=== PATIENT | female | born 1970 ===

== ENCOUNTER → 2020-07-28 12:42 | Outpatient (BNVA) | payer MEDICARE, OTHER, SELFPAY | PROVIDERS: PCP Family Medicine; Referring Provider Family Medicine; Visit Provider Nurse Practitioner Gerontology | DX: E11.65 Type 2 diabetes mellitus with hyperglycemia (principal); E11.42 Type 2 diabetes mellitus with diabetic polyneuropathy; Z79.4 Long term (current) use of insulin; E78.5 Hyperlipidemia, unspecified | CPT/HCPCS: 82947; 99212 ==

== ENCOUNTER 2020-08-10 15:30 | Outpatient (REF) | payer MEDICARE, OTHER, SELFPAY | END 2020-08-10 15:31 | disposition home or self-care (01) | LOC: HO.LAB 15:30 | PROVIDERS: Visit Provider Internal Medicine | DX: Z20.828 Contact with and (suspected) exposure to other viral communicable diseases (principal) | CPT/HCPCS: C9803; U0003 ==

== ENCOUNTER → 2020-08-26 07:55 | Outpatient (BNVA) | payer MEDICARE, OTHER, SELFPAY | PROVIDERS: PCP Family Medicine; Referring Provider Family Medicine; Visit Provider Nurse Practitioner Gerontology | DX: E11.65 Type 2 diabetes mellitus with hyperglycemia (principal); E11.42 Type 2 diabetes mellitus with diabetic polyneuropathy; Z79.4 Long term (current) use of insulin; E78.5 Hyperlipidemia, unspecified | CPT/HCPCS: Q3014 ==

== ENCOUNTER 2020-08-31 11:52 | Outpatient (REF) | payer MEDICARE, OTHER, SELFPAY ==
[2020-08-31 13:03] LABS: Alanine Aminotransferase 52 U/L (0-31); Albumin Level 4.3 g/dL (3.5-5.0); Alkaline Phosphatase 107 U/L (39-117); Anion Gap 12 (12-20); Aspartate Amino Transferase 30 U/L (5-31); Bilirubin Total 0.4 mg/dL (0.0-1.0); Blood Urea Nitrogen 15 mg/dL (9-16); Calcium 9.4 mg/dL (8.4-10.2); Carbon Dioxide 28 mmol/L (22-29); Chloride 105 mmol/L (96-108); Cholesterol 224 mg/dL; Estimated Glomerular Filt Rate > 60; Glucose Fasting 57 mg/dL (60-99); HDL Cholesterol 54 mg/dL; LDL Cholesterol Calculated 142 mg/dl; Potassium 4.3 mmol/l (3.3-5.1); Sodium 141 mmol/L (135-145); Total Protein 8.1 g/dL (6.5-8.0); Triglycerides 142 mg/dL
[2020-08-31 13:43] LABS: Creatinine Urine 114.35 mg/dL; Microalbum/Creatinine Ratio Ur 6.9 ug/mg cr
== END 2020-08-31 11:53 | disposition home or self-care (01) ==
LOC: HO.LAB 11:52
PROVIDERS: PCP Pediatrics; Visit Provider Nurse Practitioner Gerontology
DX: E11.65 Type 2 diabetes mellitus with hyperglycemia (principal); Z79.4 Long term (current) use of insulin
CPT/HCPCS: 80053; 80061; 82043

== ENCOUNTER → 2020-09-28 12:52 | Outpatient (BNVA) | payer MEDICARE, OTHER, SELFPAY | PROVIDERS: PCP Pediatrics; Visit Provider Nurse Practitioner Gerontology | DX: E11.65 Type 2 diabetes mellitus with hyperglycemia (principal); E11.42 Type 2 diabetes mellitus with diabetic polyneuropathy; R79.89 Other specified abnormal findings of blood chemistry; E78.5 Hyperlipidemia, unspecified; Z79.4 Long term (current) use of insulin | CPT/HCPCS: 82947; 99212 ==

== ENCOUNTER → 2020-11-09 14:44 | Outpatient (BNVA) | payer MEDICARE, SELFPAY | PROVIDERS: PCP Pediatrics; Visit Provider Nurse Practitioner | DX: Z13.79 Encounter for other screening for genetic and chromosomal anomalies (principal) | CPT/HCPCS: Q3014 ==

== ENCOUNTER → 2020-12-07 07:57 | Outpatient (BNVA) | payer MEDICARE, SELFPAY | PROVIDERS: PCP Pediatrics; Visit Provider Nurse Practitioner Gerontology | DX: E11.65 Type 2 diabetes mellitus with hyperglycemia (principal); E11.42 Type 2 diabetes mellitus with diabetic polyneuropathy; Z79.4 Long term (current) use of insulin; E78.5 Hyperlipidemia, unspecified | CPT/HCPCS: 82947; 99212 ==

== ENCOUNTER → 2021-01-07 12:43 | Outpatient (BNVA) | payer MEDICARE, SELFPAY | PROVIDERS: PCP Pediatrics; Visit Provider Nurse Practitioner Gerontology | DX: E11.65 Type 2 diabetes mellitus with hyperglycemia (principal); E11.42 Type 2 diabetes mellitus with diabetic polyneuropathy; E78.5 Hyperlipidemia, unspecified; M79.7 Fibromyalgia; Z88.6 Allergy status to analgesic agent; Z88.5 Allergy status to narcotic agent; Z88.8 Allergy status to other drugs, medicaments and biological substances; Z79.4 Long term (current) use of insulin; Z79.899 Other long term (current) drug therapy | CPT/HCPCS: 82947; 99212 ==

== ENCOUNTER 2021-01-20 08:00 | Outpatient (REF) | payer MEDICARE, SELFPAY ==
--- NOTE | ~2021-01-20 | US_ITS ---
EXAMINATION: US COMPLETE ABDOMEN WITH LIVER ELASTOGRAPHY CLINICAL INFORMATION: Increased LFTs. COMPARISON: None. TECHNIQUE: Real-time imaging of the abdominal viscera. Noninvasive ultrasound liver fibrosis assessment is performed using Nabil ElastPQ point quantification shear wave elastography (pSWE) with a C5-2 MHz transducer. Multiple elastography samples are obtained. FINDINGS: PANCREAS: Normal. The visualized pancreatic head and body are normal in appearance. The remainder of the pancreas is obscured from visualization by the overlying bowel gas. ABDOMINAL AORTA: The proximal, middle, and distal aortic segments are normal in caliber. INFERIOR VENA CAVA: Visualized portions are normal. LIVER: Normal. The liver demonstrates normal size, contour and echogenicity. No focal lesion or intrahepatic biliary duct dilatation. The right lobe measures 15.0 cm in length. The left lobe measures 10.3 cm in length. Portal flow is hepatopedal. Shear wave liver elastography median stiffness is 1.44 m/s (reference: normal median stiffness is 1.3 m/s or less). IQR/median stiffness to assess sampling precision is 0.12 (reference: good quality data set is IQR/median stiffness of 0.15 or less). GALLBLADDER: Normal. The gallbladder is physiologically distended without evidence of stones, sludge, polyps, wall thickening or pericholecystic fluid. COMMON BILE DUCT: Normal in caliber measuring 0.42 cm in diameter. RIGHT KIDNEY: There is a small echogenic stone midpole measuring 0.3 x 0.3 x 0.3 cm. No hydronephrosis. No renal calculi or focal parenchymal lesions. The kidney measures 11.7 cm in maximum dimension. LEFT KIDNEY: No hydronephrosis. No renal calculi or focal parenchymal lesions. The kidney measures 12.2 cm in maximum dimension. SPLEEN: Normal. The spleen measures 9.9 cm in maximum dimension. FREE FLUID: None. US/US abdomen comp w elastography IMPRESSION: 1. Small echogenic nonobstructive stone midpole right kidney. Rest of the abdominal ultrasound is unremarkable. 2. Liver elastography: Median stiffness 1.44. This is suggestive of cACLD ruled out. REFERENCE: Society of Radiologists in Ultrasound Liver Stiffness Thresholds (2020): LIVER STIFFNESS THRESHOLDS: *Liver Stiffness equal or less than 1.3 m/s: High probability of being normal. *Liver Stiffness less than 1.7 m/s: In the absence of other known clinical signs, rules out compensated advanced chronic liver disease. *Liver Stiffness 1.7-2.1 m/s: Suggestive of compensated advanced chronic liver disease but need further test for confirmation. *Liver Stiffness over 2.1 m/s: Rules in compensated advanced chronic liver disease. *Liver Stiffness over 2.4 m/s: Suggestive of clinically significant portal hypertension. QUALITY OF DATA SET: *IQR/Median value equal or less than 0.15 implies a quality data set. *IQR/Median value over 0.15 implies a poor quality data set. SIGNIFICANT CHANGE FROM PRIOR EXAM: Significant change if liver stiffness measurement is 10% or greater from prior exam. OTHER CONSIDERATIONS: The stage of liver fibrosis may be overestimated in the setting of acute hepatitis, liver inflammation, elevated liver function tests, hepatic vascular congestion, obstructive cholestasis, non-fasting state, and infiltrative diseases such as amyloidosis and lymphoma. In some patients with NAFLD, the liver stiffness thresholds for compensated advanced chronic liver disease may be lower. In causes other than viral hepatitis and NAFLD, liver stiffness thresholds are not well established.
== END 2021-01-20 08:01 | disposition home or self-care (01) ==
LOC: HO.US 08:00
PROVIDERS: Visit Provider Nurse Practitioner
DX: R79.89 Other specified abnormal findings of blood chemistry (principal); R19.7 Diarrhea, unspecified
CPT/HCPCS: 76705; 76981

== ENCOUNTER → 2021-03-03 13:38 | Outpatient (BNVA) | payer MEDICARE, SELFPAY | PROVIDERS: PCP Pediatrics; Visit Provider Nurse Practitioner Gerontology | DX: E11.65 Type 2 diabetes mellitus with hyperglycemia (principal); E11.42 Type 2 diabetes mellitus with diabetic polyneuropathy; E78.5 Hyperlipidemia, unspecified; Z79.4 Long term (current) use of insulin | CPT/HCPCS: 82947; 99212 ==

== ENCOUNTER 2021-03-04 14:21 | Outpatient (REF) | payer MEDICARE, SELFPAY ==
[2021-03-04 15:31] LABS: MANUAL DIFF FLAG NO
[2021-03-04 15:32] LABS: Basophils Absolute Auto 0.1 X10*3/uL (0.0-0.2); Basophils Percent Auto 1.1 % (0-2); Eosinophils Absolute Auto 0.2 X10*3/uL (0.0-0.4); Hematocrit 41.2 % (37-47); Hemoglobin 13.9 g/dl (12.0-16.0); Imm Gran Abs Auto 0.01 X10*3/uL (0.00-0.03); Imm Gran Pct Auto 0.2 % (0.0-0.4); Lymphocytes Absolute Auto 2.2 X10*3/uL (1.2-4.9); Lymphocytes Percent Auto 42.1 % (20-40); Mean Corpuscular HGB Conc 33.7 g/dl (31.0-35.0); Mean Corpuscular Hemoglobin 28.8 pg (27.0-33.0); Mean Corpuscular Volume 85.3 fL (80-98); Mean Platelet Volume 10.3 fL (9.4-12.3); Monocytes Absolute Auto 0.5 X10*3/uL (0.1-1.2); Monocytes Percent Auto 9.1 % (2-11); Neutrophils Absolute Auto 2.4 X10*3/uL (2.0-8.3); Neutrophils Percent Auto 44.5 % (45-73); Platelet Count 239 X10*3/uL (160-400); Red Blood Count 4.83 X10*6/uL (4.20-5.50); Red Cell Distribution Width 11.9 % (11.0-16.0); White Blood Count 5.3 X10*3/uL (4.8-10.8)
[2021-03-04 15:55] LABS: Alanine Aminotransferase 39 U/L (0-31); Albumin Level 4.4 g/dL (3.5-5.0); Alkaline Phosphatase 102 U/L (39-117); Anion Gap 13 (12-20); Aspartate Amino Transferase 27 U/L (5-31); Bilirubin Total 0.6 mg/dL (0.0-1.0); Blood Urea Nitrogen 12 mg/dL (9-16); C Reactive Protein 0.26 mg/dL (< or = 0.50); Calcium 10.1 mg/dL (8.4-10.2); Carbon Dioxide 24 mmol/L (22-29); Chloride 103 mmol/L (96-108); Estimated Glomerular Filt Rate > 60; Gamma Glutamyl Transpeptidase 28 U/L (7-33); Glucose Random 262 mg/dL (60-115); Potassium 4.7 mmol/L (3.3-5.1); Sodium 135 mmol/L (135-145); Total Protein 8.3 g/dL (6.5-8.0)
[2021-03-04 16:16] LABS: Ferritin 129 ng/mL (10-250)
[2021-03-05 04:17] LABS: HBS Num1 1.23 mIU/mL (0-7.99); HBc Num1 0.08 S/CO (0.00-0.79); HBsAGNum1 0.23 S/CO (0.00-0.99); HIV AB/AG Nonreactive (Nonreactive); HIV Num 1 0.05 S/CO (0.00-0.99); Hepatitis A Antibody IgM 0.16 Index (0-0.79); Hepatitis B Core Antibody Nonreactive (Nonreactive); Hepatitis B Surface Antigen Negative (Negative); ~Hepatitis A Antibody IgM Nonreactive (Nonreactive); ~Hepatitis B Surface Antibody NONREACTIVE (Nonreactive)
[2021-03-05 04:35] LABS: ~Hepatitis C Antibody Nonreactive (Nonreactive)
[2021-03-05 08:17] LABS: C Peptide 2.49 ng/mL (0.80-3.85)
[2021-03-05 12:22] LABS: Alpha Fetoprotein 3.4 ng/mL
[2021-03-06 13:56] LABS: Anti Nuclear Antibody Screen NEGATIVE (NEGATIVE)
[2021-03-08 15:11] LABS: Glutamic acid decarboxylase Ab <5 IU/mL (<5)
[2021-03-10 11:47] LABS: Smooth Muscle Antibody <20 U (<20)
[2021-03-10 13:22] LABS: Mitochondrial Antibodies NEGATIVE (NEGATIVE)
[2021-03-10 16:36] LABS: Gliadin Deamidated IgA Ab 7 Units; Gliadin Deamidated IgG Ab 3 Units
[2021-03-11 16:08] LABS: Transglutaminase Ab IgG 3 U/mL; Transglutaminase IgA 1 U/mL
[2021-03-13 09:52] LABS: Islet Cell Antibody Screen NEGATIVE (NEGATIVE)
== END 2021-03-04 14:22 | disposition home or self-care (01) ==
LOC: HO.LAB 14:21
PROVIDERS: Nurse Practitioner Gerontology; PCP Pediatrics; Referring Provider Pediatrics; Visit Provider Nurse Practitioner
DX: R79.89 Other specified abnormal findings of blood chemistry (principal); R19.7 Diarrhea, unspecified; K58.0 Irritable bowel syndrome with diarrhea; E11.42 Type 2 diabetes mellitus with diabetic polyneuropathy
CPT/HCPCS: 36415; 80053; 82105; 82728; 82977; 83516; 84681; 85025; 86038; 86039; 86140; 86255; 86256; 86341; 86704; 86706; 86709; 86803; 87340; 87389; 99212

== ENCOUNTER → 2021-03-23 10:02 | Outpatient (BNVA) | payer MEDICARE, SELFPAY | PROVIDERS: PCP Pediatrics; Visit Provider Nurse Practitioner Gerontology | DX: E11.65 Type 2 diabetes mellitus with hyperglycemia (principal); E11.42 Type 2 diabetes mellitus with diabetic polyneuropathy; E78.5 Hyperlipidemia, unspecified; Z79.4 Long term (current) use of insulin | CPT/HCPCS: 82947; 99212 ==

== ENCOUNTER → 2021-04-07 14:12 | Outpatient (BNVA) | payer MEDICARE, SELFPAY | PROVIDERS: PCP Pediatrics; Referring Provider Pediatrics; Visit Provider Surgery | DX: R10.31 Right lower quadrant pain (principal) | CPT/HCPCS: 99202 ==

== ENCOUNTER 2021-04-16 10:28 | Outpatient (REF) | payer MEDICARE, OTHER, SELFPAY ==
--- NOTE | ~2021-04-16 | CT_ITS ---
EXAMINATION: CT ABDOMEN AND PELVIS WITHOUT CONTRAST CLINICAL INFORMATION: Right lower quadrant pain. COMPARISON: Abdominal ultrasound dated 01/20/2021. TECHNIQUE: Multidetector volumetric imaging was performed from the superior aspect of the liver through the pubic symphysis. Sagittal and coronal reformatted images were obtained on the technologist's workstation. This CT examination was performed using dose optimization techniques as appropriate, variously including the following: *Automated exposure control *Adjustment of mA and/or kV according to patient size (this includes techniques or standardized protocols for targeted exams where dose is matched to indication/reason for exam; i.e. extremities or head) *Use of iterative reconstruction technique DLP: 444 mGy-cm FINDINGS: LUNG BASES: The visualized lung bases are unremarkable. LIVER, GALLBLADDER, AND BILIARY TREE: The liver is normal in size, shape, and attenuation. No focal hepatic lesion or biliary ductal dilatation is present. Status post cholecystectomy. PANCREAS: Unremarkable. SPLEEN: Unremarkable. ADRENAL GLANDS: Unremarkable. KIDNEYS AND URETERS: The kidneys are normal in size, shape, and attenuation. Nonobstructing bilateral renal stones measuring 0.4 and 0.2 cm on the right as well as 0.5 cm on the left. Stones are too small to characterize by Hounsfield units. No ureteral stone. No hydronephrosis or hydroureter. No perinephric stranding. BLADDER: Nondistended and unremarkable. GASTROINTESTINAL TRACT: Scattered sigmoid diverticulosis. No evidence of acute diverticulitis. No bowel wall thickening or associated inflammatory change. No small or large bowel obstruction. Unremarkable appendix. PERITONEAL CAVITY: No intra-abdominal free air or free fluid. No intra-abdominal mass or organized fluid collection/abscess formation. ABDOMINAL WALL: No significant hernia is appreciated. LYMPH NODES: Normal. VASCULAR: Unremarkable. PELVIC VISCERA: The uterus and adnexa are unremarkable. OSSEOUS STRUCTURES: Unremarkable. CT/CT abdomen pelvis wo con IMPRESSION: 1. Diverticulosis without evidence of acute diverticulitis. No small or large bowel obstruction. Unremarkable appendix. 2. Nonobstructive bilateral renal stones measuring up to 0.4 cm on the right and 0.5 cm on the left. No ureteral stone. No hydronephrosis or hydroureter. 3. No intra-abdominal mass, lymphadenopathy, or ascites.
== END 2021-04-16 10:29 | disposition home or self-care (01) ==
LOC: HO.CT 10:28
PROVIDERS: Visit Provider Surgery
DX: R10.31 Right lower quadrant pain (principal)
CPT/HCPCS: 74176

== ENCOUNTER → 2021-04-22 09:35 | Outpatient (BNVA) | payer MEDICARE, SELFPAY | PROVIDERS: Visit Provider Surgery | DX: R10.31 Right lower quadrant pain (principal) | CPT/HCPCS: 99212 ==

== ENCOUNTER → 2021-06-16 14:08 | Outpatient (BNVA) | payer MEDICARE, SELFPAY | PROVIDERS: PCP Family Medicine; Visit Provider Nurse Practitioner Gerontology | DX: E11.65 Type 2 diabetes mellitus with hyperglycemia (principal); E11.42 Type 2 diabetes mellitus with diabetic polyneuropathy; E78.5 Hyperlipidemia, unspecified; Z79.4 Long term (current) use of insulin | CPT/HCPCS: 82947; 83036; 99212 ==

== ENCOUNTER → 2021-07-22 12:51 | Outpatient (BNVA) | payer MEDICARE, SELFPAY | PROVIDERS: PCP Family Medicine; Visit Provider Registered Nurse Diabetes Educator | DX: E11.65 Type 2 diabetes mellitus with hyperglycemia (principal); E11.42 Type 2 diabetes mellitus with diabetic polyneuropathy; E78.5 Hyperlipidemia, unspecified; R94.5 Abnormal results of liver function studies; Z88.6 Allergy status to analgesic agent; J30.2 Other seasonal allergic rhinitis; Z82.49 Family history of ischemic heart disease and other diseases of the circulatory system; Z83.3 Family history of diabetes mellitus; Z80.0 Family history of malignant neoplasm of digestive organs; Z79.4 Long term (current) use of insulin | CPT/HCPCS: 99211 ==

== ENCOUNTER → 2021-08-03 14:57 | Outpatient (BNVA) | payer MEDICARE, SELFPAY | PROVIDERS: PCP Family Medicine; Visit Provider Registered Nurse Diabetes Educator | DX: E11.65 Type 2 diabetes mellitus with hyperglycemia (principal); Z79.4 Long term (current) use of insulin | CPT/HCPCS: 99211 ==

== ENCOUNTER → 2021-09-02 13:36 | Outpatient (BNVA) | payer MEDICARE, SELFPAY | PROVIDERS: PCP Family Medicine; Visit Provider Registered Nurse Diabetes Educator | DX: E11.65 Type 2 diabetes mellitus with hyperglycemia (principal); Z79.4 Long term (current) use of insulin | CPT/HCPCS: 99211 ==

== ENCOUNTER → 2021-11-15 09:05 | Outpatient (BNVA) | payer MEDICARE, SELFPAY | PROVIDERS: PCP Family Medicine; Visit Provider Nurse Practitioner Gerontology | DX: E11.65 Type 2 diabetes mellitus with hyperglycemia (principal); E11.42 Type 2 diabetes mellitus with diabetic polyneuropathy; E78.5 Hyperlipidemia, unspecified; Z79.4 Long term (current) use of insulin | CPT/HCPCS: 82947; 83036; 99212 ==

== ENCOUNTER → 2021-11-30 10:18 | Outpatient (BNVA) | payer MEDICARE, SELFPAY | PROVIDERS: PCP Family Medicine; Visit Provider Registered Nurse Diabetes Educator | DX: E11.65 Type 2 diabetes mellitus with hyperglycemia (principal); Z79.4 Long term (current) use of insulin | CPT/HCPCS: 99211 ==

== ENCOUNTER → 2022-01-06 07:57 | Outpatient (BNVA) | payer MEDICARE, SELFPAY | PROVIDERS: PCP Pediatrics; Visit Provider Registered Nurse Diabetes Educator | DX: E11.65 Type 2 diabetes mellitus with hyperglycemia (principal); Z79.4 Long term (current) use of insulin | CPT/HCPCS: 99211 ==

== ENCOUNTER 2022-04-04 15:26 | Outpatient (REF) | payer MEDICARE, SELFPAY ==
--- NOTE | ~2022-04-04 | XR_ITS ---
EXAMINATION: XR KNEE, RIGHT XR KNEE, LEFT CLINICAL INFORMATION: Fibromyalgia. COMPARISON: None TECHNIQUE: 2 views of each knee. FINDINGS: LEFT KNEE: Bone alignment is normal. No fracture or dislocation is seen. The joint spaces are normal. There is soft tissue calcification superficial to the patella, and in the adjacent quadriceps and patellar tendons. There is soft tissue swelling over the inferior patella and patellar tendon. RIGHT KNEE: Bone alignment is normal. No fracture or dislocation is seen. The joint spaces are normal. There is soft tissue calcification superficial to the patella, and in the adjacent quadriceps and patellar tendons. There is soft tissue swelling over the inferior patella and patellar tendon. XR/XR knee RT 2V IMPRESSION: Bilateral soft tissue calcification over the patella, quadriceps and patellar tendons and soft tissue swelling over the inferior patella and patellar tendons. Findings are questionable for hydroxy appetite deposition disease.
--- NOTE | ~2022-04-04 | XR_ITS ---
EXAMINATION: BILATERAL HAND X-RAY CLINICAL INFORMATION: Fibromyalgia COMPARISON: None TECHNIQUE: 3 views of each hand FINDINGS: Right: Bone alignment is normal. No fracture or dislocation is seen. There is mild arthritis at the first MCP joint. There is periarticular soft tissue calcification adjacent to the second MCP joint The joint spaces are otherwise normal. Soft tissues are otherwise normal. Left: Bone alignment is normal. No fracture or dislocation is seen. There is periarticular soft tissue calcification adjacent to the first through fourth fourth MCP joints. Joint spaces and soft tissues are otherwise normal. Given knee joint changes findings are questionable for hydroxyapatite deposition disease. XR/XR hand LT min 3V IMPRESSION: Right: Mild arthritis at the first MCP joint. Periarticular soft tissue calcification adjacent to the second MCP joint. Left: Periarticular soft tissue calcifications adjacent to the first through fourth MCP joints. Question hydroxyapatite deposition disease.
--- NOTE | ~2022-04-04 | XR_ITS ---
EXAMINATION: XR KNEE, RIGHT XR KNEE, LEFT CLINICAL INFORMATION: Fibromyalgia. COMPARISON: None TECHNIQUE: 2 views of each knee. FINDINGS: LEFT KNEE: Bone alignment is normal. No fracture or dislocation is seen. The joint spaces are normal. There is soft tissue calcification superficial to the patella, and in the adjacent quadriceps and patellar tendons. There is soft tissue swelling over the inferior patella and patellar tendon. RIGHT KNEE: Bone alignment is normal. No fracture or dislocation is seen. The joint spaces are normal. There is soft tissue calcification superficial to the patella, and in the adjacent quadriceps and patellar tendons. There is soft tissue swelling over the inferior patella and patellar tendon. XR/XR knee LT 2V IMPRESSION: Bilateral soft tissue calcification over the patella, quadriceps and patellar tendons and soft tissue swelling over the inferior patella and patellar tendons. Findings are questionable for hydroxy appetite deposition disease.
--- NOTE | ~2022-04-04 | XR_ITS ---
EXAMINATION: BILATERAL HAND X-RAY CLINICAL INFORMATION: Fibromyalgia COMPARISON: None TECHNIQUE: 3 views of each hand FINDINGS: Right: Bone alignment is normal. No fracture or dislocation is seen. There is mild arthritis at the first MCP joint. There is periarticular soft tissue calcification adjacent to the second MCP joint The joint spaces are otherwise normal. Soft tissues are otherwise normal. Left: Bone alignment is normal. No fracture or dislocation is seen. There is periarticular soft tissue calcification adjacent to the first through fourth fourth MCP joints. Joint spaces and soft tissues are otherwise normal. Given knee joint changes findings are questionable for hydroxyapatite deposition disease. XR/XR hand RT min 3V IMPRESSION: Right: Mild arthritis at the first MCP joint. Periarticular soft tissue calcification adjacent to the second MCP joint. Left: Periarticular soft tissue calcifications adjacent to the first through fourth MCP joints. Question hydroxyapatite deposition disease.
== END 2022-04-04 15:27 | disposition home or self-care (01) ==
LOC: HO.XRAY 15:26
PROVIDERS: PCP Pediatrics; Visit Provider Internal Medicine Rheumatology
DX: M79.7 Fibromyalgia (principal); M19.041 Primary osteoarthritis, right hand; M19.042 Primary osteoarthritis, left hand; E11.42 Type 2 diabetes mellitus with diabetic polyneuropathy; M25.561 Pain in right knee; M25.562 Pain in left knee
CPT/HCPCS: 73130; 73560; 99202

== ENCOUNTER 2023-07-31 15:15 | Outpatient (AMB) | payer OTHER, MEDICAID, SELFPAY ==
--- NOTE | 2023-07-31 15:21 | A.OFFVIS_ITS ---
Intake Vital Signs 07/31/23 15:24 Height 5 ft 5 in Weight 136 lb 3.931 oz BMI 22.7 BP 100/70 Blood Pressure Location Rt brachial Position Sitting Pulse 83 Pulse Source Pulse Oximeter Intake Visit Reasons: DM/Sharon Intake Note: New patient present today for Diabetes Mellitus. Referred by PCP. Patient uses Dexcom G7, does not remember the supplier. Will call with information. Last Diabetic Eye exam: Few years Last Podiatry Visit: Does not see a Ekg Manager Random Glucose: 266 mg/dl HgA1C: 13.6% Intellectual Property Paralegal Required: Yes Intellectual Property Paralegal Language: Hard Tile Setter Apprentice Name: Rajwinder, Medical Staff CMI Information Interpreted: non-clinical & clinical Accompanied by: Significant Other Allergies acetaminophen [From Percocet] Allergy (Severe, Verified 07/31/23 15:25) Anaphylaxis oxycodone [From Percocet] Allergy (Severe, Verified 07/31/23 15:25) Anaphylaxis Vicodin Allergy (Unknown, Uncoded 07/31/23 15:25) Anaphylaxis Medication List - Last Reconciled 07/31/23 by Sudhakar Garcia MD albuterol sulfate 90 mcg/actuation inhalation alcohol swabs pad topical aripiprazole 5 mg PO DAILY blood sugar diagnostic As directed blood sugar diagnostic (FreeStyle Lite Strips) As directed four times a day gabapentin 300 mg PO BID glucose (Dex4 Glucose) 12 grams (3 x 4 gram) PO Q15M PRN insulin glargine (Lantus Solostar U-100 Insulin) 56 units subcut QPM insulin lispro 2 - 16 units (0.02 - 0.16 mL) subcut QID 30 days lancets As directed lisinopril 2.5 mg PO QAM loratadine 10 mg PO QAM multivitamin 1 tab PO DAILY naproxen 500 mg PO BID omega [id number] oil 1,000 mg (120 mg-180 mg) (Fish Oil) 1 cap PO DAILY pen needle, diabetic As directed five times a day pioglitazone 30 mg PO DAILY rosuvastatin 40 mg PO DAILY tramadol 50 mg PO Q6H PRN venlafaxine ER 150 mg PO DAILY HPI HPI Comments History of Present Illness Details Patient is a 52 yo female with DM type 2 diagnosed approximately 2017 for management of her diabetes. Patient was last seen 11/15/21 by Nereyda Ronderos, SPORTS SPECIALIST Past medical history includes : DM2, HLD, fibromyalgia Micro and macrovascular complications: none known. Diabetes medications: Diabetes medications: Actos 15 mg. Lantus 56 units.Humalog 8 units for small meals, 10 units for medium meals and 16 units for large meals as well as 6 units for snacks (using 8 units for snacks). She may add 1 unit for blood glucose over 200. She may use 4 units if she has coffee only at breakfast and coffee. . Intolerant of metformin due to gastric issues, intolerant of Trulicity due to nausea. Her correction scale for not eating is +4 unit for bg > 300, +6u for bg>350 and +8u for bg >400. Blood glucose monitoring: Dexcom download shows she is using a sense of 14% of the time. Average glucose is 382 with standard deviation of 31 100% hyperglycemic with no hypoglycemia Symptoms: + numbness, tingling and cramping in legs Hypoglycemia: no Hyperglycemia: reports polyuria, and polydysia, nocturia several times a night Was being treated for Non-Hodgkin's Lymphoma Has stong family hx of Type 2 DM Exercise - has stopped lifting weights due to hernia, walks 20 minutes most days with dog Eye exam: needs to make appt Laboratory Tests 06/16/21 14:27 Hgb A1c (Clinic) 10.5 H 12/07/20 03/04/21 03/04/21 07:52 15:13 15:13 Creatinine 0.81 Estimated GFR > 60 Hgb A1c (Clinic) 7.7 H C-Peptide 2.49 Islet Cell Ab Tite r TNP GIDEON Antibody <5 Laboratory Tests 03/04/21 03/23/21 15:13 10:35 Random Glucose 262 H Hgb A1c (Clinic) 9.8 H Labs received 02/24/2021 from [facility]: Albumin/creatinine ratio 7 Vitamin-D, 25-0 H 31 TSH 2.06 Cholesterol 148 HDL 40 LDL 83 Triglycerides 148 Vitamin B12 767 Hemoglobin A1c 7.7% creatinine 0.59 egfr 108 [facility] Medical History (Updated 04/04/22 @ 14:50 by Deon Rojas MD) Right groin pain Arthritis Elevated LFTs Fibromyalgia Bunion, left foot Migraine Asthma Seasonal allergies Mood disorder Joint pain Hyperlipidemia LDL goal <100 Type 2 diabetes mellitus with polyneuropathy Type 2 diabetes mellitus with hyperglycemia Surgical History Hx of colonoscopy (~2019) Hx of cholecystectomy Hx of foot surgery History of bilateral carpal tunnel release Hx of cataract surgery Family History Father Hypertension Mother Diabetes Colon cancer Brother Liver cancer Household Members: Other Household Members Other:: Sister Alcohol intake: current Alcohol intake frequency: does not drink Patient Tobacco Use Status: Never used Tobacco Physical Exam Vital Signs: Last Vital Signs Pulse 83 07/31/23 15:24 BP 100/70 07/31/23 15:24 BMI result Body Mass Index 22.7 Absence of Cushingoid features. Absence of acromegalic features. Neck exam reveals nl size thyroid about 15 gms. No thyroid nodules palpable. No carotid bruits present. Lungs CTA. Heart S1 S2, Reg R/R. No M/R/ G. Skin exam reveals absence of vitiligo or acanthosis nigricans. Abdominal exam reveals Soft NT/ND with NA BS. No organomegaly present. Neck Other: . Extrem Other: Visual exam of foot performed. No ulcerations or open lesions. No onchomycosis, no callouses.Pulses 2 + distally Sensation iloss to monofilament exam. Vibratory sensation sensed is idecreased with 128 Hz tuning fork Results AMB Hemoglobin A1c AMB Hemoglobin A1c 13.6 % Last Edit by YUSUF Menendez on 07/31/23 15:57 Results Reviewed Results Reviewed: Laboratory Last Values Glucose (Clinic) 266 mg/dL (60-115) H 07/31/23 15:34 Assessment & Plan Assessment & Plan (1) Type 2 diabetes mellitus with hyperglycemia: Code(s): E11.65 - Type 2 diabetes mellitus with hyperglycemia Qualifiers: Diabetes mellitus assisted insulin use: with adjunct faculty for medical terminology use Qualified Code(s): E11.65 - Type 2 diabetes mellitus with hyperglycemia; Z79.4 - adjunct faculty for medical terminology (current) use of insulin Plan: This is a 52-year-old female with history of type 2 diabetes being treated with Actos and basal-bolus insulin poor glycemic control and known microvascular complications namely neuropathy. Plan is that the patient use a sense of more frequent. Will increase Lantus to 70 units.. Will check anti-GIDEON 65 to rule out type 1. Will have patient follow up with script writer to discuss possible insulin pump initiation. Will check basic metabolic panel, lipid profile and microalbumin to creatinine ratio. Went over correlation of poor glycemic control the development and progression of complications with patient. Will also refer patient to transit worker Orders: Orders Lipid Panel Today E11.65 - Type 2 diabetes mellitus with hyperglycemia AMB Hemoglobin A1c Today E11.65 - Type 2 diabetes mellitus with hyperglycemia Microalbumin, Random (w Creat) Today E11.65 - Type 2 diabetes mellitus with hyperglycemia Basic Metabolic Panel Fasting Today E11.65 - Type 2 diabetes mellitus with hyperglycemia Thyroid Stimulating Hormone Today E11.65 - Type 2 diabetes mellitus with hyperglycemia Free T4 (Free Thyroxine) Today E11.65 - Type 2 diabetes mellitus with hyperglycemia Glutamic acid decarboxylase Ab Today E11. - Type 2 diabetes mellitus with hyperglycemia Referrals Podiatry Referral E11.65 - Type 2 diabetes mellitus with hyperglycemia Medications: Changed From insulin glargine (Lantus Solostar U-100 Insulin) 56 units subcut QPM E11.65 - Type 2 diabetes mellitus with hyperglycemia, Z79.4 - adjunct faculty for medical terminology (current) use of insulin To insulin glargine (Lantus Solostar U-100 Insulin) 70 units (0.7 mL) subcut QPM 30 days 45 mL 4RF E11.65 - Type 2 diabetes mellitus with hyperglycemia, Z79.4 - [facility] (current) use of insulin Coding Level of Care Code Est Pt Level 4 (70740) Diagnoses Type 2 diabetes mellitus with hyperglycemia, with long-term current use of insulin E11.65; Z79.4 Diabetes mellitus adjunct faculty for medical terminology insulin use: with adjunct faculty for medical terminology use
[2023-07-31 15:24] VITALS: BP 100/70; PULSE 83; BMI 22.7
[2023-07-31 15:39] LABS: Glucose, Whole Blood 266 mg/dL (60-115)
== END 2023-07-31 16:22 | disposition home or self-care (01) ==
PROVIDERS: PCP Pediatrics; Visit Provider Internal Medicine Endocrinology, Diabetes & Metabolism
DX: E11.65 Type 2 diabetes mellitus with hyperglycemia (principal); Z79.4 Long term (current) use of insulin
CPT/HCPCS: 99214

== ENCOUNTER → 2023-07-31 15:15 | Outpatient (BNVA) | payer OTHER, MEDICAID, SELFPAY | PROVIDERS: PCP Pediatrics; Visit Provider Internal Medicine Endocrinology, Diabetes & Metabolism | DX: E11.65 Type 2 diabetes mellitus with hyperglycemia (principal); Z79.4 Long term (current) use of insulin | CPT/HCPCS: 82947; 83036 ==

== ENCOUNTER 2023-08-18 11:04 | Outpatient (AMB) | payer OTHER, MEDICAID, SELFPAY ==
--- NOTE | 2023-08-18 11:43 | MHC.AMDMED ---
Intake Intake Visit Reasons: dm /CONFIRMED Credit Clerk Required: Yes Credit Clerk Language: Sweater Designer Name: Jacy [facility] [place] Open Pit Quarry Supervisor: Open Pit Quarry Supervisor offered & declined Accompanied by: Other Relationship Allergies acetaminophen [From Percocet] Allergy (Severe, Verified 07/31/23 15:25) Anaphylaxis oxycodone [From Percocet] Allergy (Severe, Verified 07/31/23 15:25) Anaphylaxis Vicodin Allergy (Unknown, Uncoded 07/31/23 15:25) Anaphylaxis HPI Comprehensive Diabetes Asmnt Most Recent Diabetes Results: Microalb/Creat Ratio 6.9 ug/mg cr 08/31/20 Cholesterol 224 mg/dL 08/31/20 HDL Cholesterol 54 mg/dL 08/31/20 Triglycerides 142 mg/dL 08/31/20 Creatinine 0.81 mg/dL (0.5-1.4) 03/04/21 Blood Urea Nitrogen 12 mg/dL (9-16) 03/04/21 Sodium 135 mmol/L (135-145) 03/04/21 Potassium 4.7 mmol/L (3.3-5.1) 03/04/21 Chloride 103 mmol/L (96-108) 03/04/21 Carbon Dioxide 24 mmol/L (22-29) 03/04/21 Calcium 10.1 mg/dL (8.4-10.2) 03/04/21 AST 27 U/L (5-31) 03/04/21 ALT 39 U/L (0-31) H 03/04/21 Total Protein 8.3 g/dL (6.5-8.0) H 03/04/21 Albumin 4.4 g/dL (3.5-5.0) 03/04/21 [facility] Medical History (Updated 04/04/22 @ 14:50 by Deon Rojas MD) Right groin pain Arthritis Elevated LFTs Fibromyalgia Bunion, left foot Migraine Asthma Seasonal allergies Mood disorder Joint pain Hyperlipidemia LDL goal <100 Type 2 diabetes mellitus with polyneuropathy Type 2 diabetes mellitus with hyperglycemia Surgical History Hx of colonoscopy (~2019) Hx of cholecystectomy Hx of foot surgery History of bilateral carpal tunnel release Hx of cataract surgery Family History Father Hypertension Mother Diabetes Colon cancer Brother Liver cancer Social History Household Members: Other Household Members Other:: Sister Alcohol intake: current Alcohol intake frequency: does not drink Patient Tobacco Use Status: Never used Tobacco Assessment & Plan Assessment & Plan (1) Type 2 diabetes mellitus with hyperglycemia: Code(s): E11.65 - Type 2 diabetes mellitus with hyperglycemia Qualifiers: Diabetes mellitus long term care social worker insulin use: with long term care social worker use Qualified Code(s): E11.65 - Type 2 diabetes mellitus with hyperglycemia; Z79.4 - marine oil terminal superintendent (current) use of insulin Plan: Learning objectives: The patient was provided with verbal and written education on the following topics as outlined below. The patient met all learning objectives and was able to verbalize understanding and provide teach back of education topics discussed . The patient was provided with the opportunity to ask questions and all questions were answered. Patient Assessment Assess patient education level/literacy/barriers, due to patient's low literacy and her inability for carb counting pump therapy option would be iLet Patient questions/concerns, patient has not been seen for a year and a half. patient had previously be interested in an insulin pump, however she was unable to master carbohydrate counting. At today's visit we discussed starting with the Lean Launch Venturess iLet she is currently on MDI 70 units of Lantus daily 2 to16 units of Humalog based on sliding scale is not taking pioglitazone at this time Diabetes Education nurse will contact Kathi Corbin at [facility] about next steps of ordering insulin pump Blood glucose monitoring When/how often to test Target blood sugar ranges patient is using Dexcom G7, but no longer has Dexcom clarity chad downloaded on smart phone. we were unable to download Dexcom clarity chad on smart phone at today's visit due to lack of connectivity instructed patient to download Dexcom clarity chad on phone at home, once she signs in to [employer] account sharing should resume Introduction to Nutrition Importance of healthy diet in managing DM Diet is personalized to individual preference Review patient?s regular diet/food preferences Who prepares meals/does food shopping/ Dining out?/ Barriers? How diet effects glucose Eating 3 balanced meals a day with small, healthy snacks between meals Review food groups Carbohydrates: What is a carbohydrate/Which food/food groups are considered carbohydrates Effect of carbohydrates on blood glucose Portion sizes Reading food labels Basic carb counting (if applicable per nursing assessment) Plate method Meal planning Recommendations: Follow plate method, consistent carbs and read nutritional labels. Educational Materials: The patient was provided with the following written educational materials: Planning Healthy Meals Handout Patient Response to instructions: Comprehension of Instructions: Fair Readiness to make changes: Contemplation How confident they feel about making changes: fair Patient Instructions: go to urgent care for infection in right index finger follow-up with Diabetes Education nurse in 1 month Coding Level of Care Code Est Pt Level 1 (92516) Diagnoses Type 2 diabetes mellitus with hyperglycemia, with long-term current use of insulin E11.65; Z79.4 Diabetes mellitus long term care social worker insulin use: with long term care social worker use
== END 2023-08-18 11:46 | disposition home or self-care (01) ==
PROVIDERS: PCP Pediatrics; Visit Provider Registered Nurse Diabetes Educator
DX: E11.65 Type 2 diabetes mellitus with hyperglycemia (principal); Z79.4 Long term (current) use of insulin

== ENCOUNTER → 2023-08-18 11:04 | Outpatient (BNVA) | payer OTHER, MEDICAID, SELFPAY | PROVIDERS: PCP Pediatrics; Visit Provider Registered Nurse Diabetes Educator | DX: E11.65 Type 2 diabetes mellitus with hyperglycemia (principal); Z79.4 Long term (current) use of insulin | CPT/HCPCS: 99211 ==

== ENCOUNTER 2023-09-06 11:17 | Outpatient (REF) | payer OTHER, MEDICAID, SELFPAY | END 2023-09-06 11:18 | disposition home or self-care (01) | LOC: HO.LAB 11:17 | PROVIDERS: PCP Pediatrics; Visit Provider Internal Medicine Endocrinology, Diabetes & Metabolism | DX: E11.65 Type 2 diabetes mellitus with hyperglycemia (principal) | CPT/HCPCS: 36415; 80048; 80061; 82043; 82570; 84439; 84443; 86341 ==

== ENCOUNTER 2023-11-13 15:04 | Outpatient (AMB) | payer OTHER, MEDICAID, SELFPAY ==
[2023-11-13 15:05] VITALS: BP 122/76; PULSE 100; BMI 24.0
--- NOTE | 2023-11-13 15:05 | A.OFFVIS_ITS ---
Intake Vital Signs 11/13/23 15:05 Height 5 ft 5 in Weight 144 lb 6.444 oz BMI 24.0 BP 122/76 Blood Pressure Location Lt brachial Position Sitting Pulse 100 Pulse Source Pulse Oximeter Intake Visit Reasons: DM2-lvm Intake Note: Patient present today to follow up on Type 2 Diabetes Mellitus. Last Diabetic Eye exam: Over 2 years Last Podiatry Visit: Doesn't have one Random Glucose: 344 mg/dl HgA1C: 9.2% Equipment Inspector Required: Yes Equipment Inspector Language: Stacking Machine Operator Name: Jazmín Information Interpreted: non-clinical & clinical Accompanied by: Sister Allergies acetaminophen [From Percocet] Allergy (Severe, Verified 11/13/23 15:15) Anaphylaxis oxycodone [From Percocet] Allergy (Severe, Verified 11/13/23 15:15) Anaphylaxis Vicodin Allergy (Unknown, Uncoded 11/13/23 15:15) Anaphylaxis Medication List - Last Reconciled 11/13/23 by Sudhakar Garcia MD albuterol sulfate 90 mcg/actuation inhalation alcohol swabs pad topical aripiprazole 5 mg PO DAILY blood sugar diagnostic As directed blood sugar diagnostic (FreeStyle Lite Strips) As directed four times a day gabapentin 300 mg PO BID glucose (Dex4 Glucose) 12 grams (3 x 4 gram) PO Q15M PRN insulin glargine (Lantus Solostar U-100 Insulin) 70 units (0.7 mL) subcut QPM insulin lispro 2 - 16 units (0.02 - 0.16 mL) subcut QID 30 days lancets As directed lisinopril 2.5 mg PO QAM loratadine 10 mg PO QAM multivitamin 1 tab PO DAILY naproxen 500 mg PO BID omega 7-ycd-fgn-fish oil 1,000 mg (120 mg-180 mg) (Fish Oil) 1 cap PO DAILY pen needle, diabetic As directed five times a day pioglitazone 30 mg PO DAILY rosuvastatin 40 mg PO DAILY tramadol 50 mg PO Q6H PRN venlafaxine ER 150 mg PO DAILY HPI HPI Comments History of Present Illness Details Patient is a 53 yo female with DM type 2 diagnosed approximately 2017 for management of her diabetes. Patient was last seen 11/15/21 by Nereyda Herrera NP Past medical history includes : DM2, HLD, fibromyalgia Micro and macrovascular complications: none known. Diabetes medications: Diabetes medications: Actos 15 mg. Lantus 70 units.Humalog 8 units for small meals, 10 units for medium meals and 16 units for large meals as well as 6 units for snacks (using 8 units for snacks). She may add 1 unit for blood glucose over 200. She may use 4 units if she has coffee only at breakfast and coffee. . Intolerant of metformin due to gastric issues, intolerant of Trulicity due to nausea. Her correction scale for not eating is +4 unit for bg > 300, +6u for bg>350 and +8u for bg >400. Blood glucose monitoring: Dexcom download shows she is using a sense of % of the time. Average glucose is with standard deviation of . % hyperglycemic with no hypoglycemia. Has not used sensor since 07/2023 Symptoms: + numbness, tingling and cramping in legs Hypoglycemia: no -rare Hyperglycemia: reports polyuria, and polydysia, nocturia several times a night Was being treated for Non-Hodgkin's Lymphoma Has stong family hx of Type 2 DM Exercise - has stopped lifting weights due to hernia, walks 20 minutes most days with dog Eye exam: needs to make appt Laboratory Tests 06/16/21 14:27 Hgb A1c (Clinic) 10.5 H 12/07/20 03/04/21 03/04/21 07:52 15:13 15:13 Creatinine 0.81 Estimated GFR > 60 Hgb A1c (Clinic) 7.7 H C-Peptide 2.49 Islet Cell Ab Tite r TNP GIDEON Antibody <5 Laboratory Tests 03/04/21 03/23/21 15:13 10:35 Random Glucose 262 H Hgb A1c (Clinic) 9.8 H Labs [facility]: Albumin/creatinine ratio 7 Vitamin-D, 25-0 H 31 TSH 2.06 Cholesterol 148 HDL 40 LDL 83 Triglycerides 148 Vitamin B12 767 Hemoglobin A1c 7.7% creatinine 0.59 egfr 108 [facility] Medical History (Updated 04/04/22 @ 14:50 by Deon Rojas MD) Right groin pain Arthritis Elevated LFTs Fibromyalgia Bunion, left foot Migraine Asthma Seasonal allergies Mood disorder Joint pain Hyperlipidemia LDL goal <100 Type 2 diabetes mellitus with polyneuropathy Type 2 diabetes mellitus with hyperglycemia Surgical History Hx of colonoscopy (~2019) Hx of cholecystectomy Hx of foot surgery History of bilateral carpal tunnel release Hx of cataract surgery Family History Father Hypertension Mother Diabetes Colon cancer Brother Liver cancer Social History Household Members: Other Household Members Other:: Sister Alcohol intake: current Alcohol intake frequency: does not drink Patient Tobacco Use Status: Never used Tobacco Physical Exam Vital Signs: Last Vital Signs Pulse 100 11/13/23 15:05 BP 122/76 11/13/23 15:05 BMI result Body Mass Index 24.0 Absence of Cushingoid features. Absence of acromegalic features. Neck exam reveals nl size thyroid about 15 gms. No thyroid nodules palpable. No carotid bruits present. Lungs CTA. Heart S1 S2, Reg R/R. No M/R/ G. Skin exam reveals absence of vitiligo or acanthosis nigricans. Abdominal exam reveals Soft NT/ND with NA BS. No organomegaly present. Neck Other: . Extrem Other: Visual exam of foot performed. No ulcerations or open lesions. No onchomycosis, no callouses.Pulses 2 + distally Sensation iloss to monofilament exam. Vibratory sensation sensed is idecreased with 128 Hz tuning fork Results AMB Hemoglobin A1c AMB Hemoglobin A1c 9.2 % Last Edit by YUSUF Abdi on 11/13/23 15:28 Results Reviewed Results Reviewed: Laboratory Last Values Glucose (Clinic) 344 mg/dL (60-115) H 11/13/23 15:19 Assessment & Plan Assessment & Plan (1) Type 2 diabetes mellitus with hyperglycemia: Code(s): E11.65 - Type 2 diabetes mellitus with hyperglycemia Qualifiers: Diabetes mellitus detention insulin use: with detention use Qualified Code(s): E11.65 - Type 2 diabetes mellitus with hyperglycemia; Z79.4 - correction (current) use of insulin Plan: This is a 53-year-old female with history of type 2 diabetes being treated with Actos and basal-bolus insulin poor glycemic control and known microvascular complications namely neuropathy. Plan is that the patient use a sensor and bring the sensor with her to follow-up appointments. .. Will have patient follow up with family educator to discuss possible insulin pump initiation. We could also attempt an alternative G LP 1/GI P like Mounjaro once sensors in place . Went over correlation of poor glycemic control the development and progression of complications with patient. (2) History of hernia surgery: Code(s): Z98.890 - Other specified postprocedural states; Z87.19 - Personal history of other diseases of the digestive system Plan: Not addressed this visit Orders: Orders AMB Hemoglobin A1c Today E11.65 - Type 2 diabetes mellitus with hyperglycemia, Z13.9 - Encounter for screening, unspecified Coding Level of Care Code Est Pt Level 4 (90974) Diagnoses Type 2 diabetes mellitus with hyperglycemia, with long-term current use of insulin E11.65; Z79.4 Diabetes mellitus detention insulin use: with director long term care use History of hernia surgery Z98.890; Z87.19
[2023-11-13 15:22] LABS: Glucose, Whole Blood 344 mg/dL (60-115)
== END 2023-11-13 15:32 | disposition home or self-care (01) ==
PROVIDERS: PCP Pediatrics; Referring Provider Pediatrics; Visit Provider Internal Medicine Endocrinology, Diabetes & Metabolism
DX: E11.65 Type 2 diabetes mellitus with hyperglycemia (principal); Z79.4 Long term (current) use of insulin; Z98.890 Other specified postprocedural states; Z87.19 Personal history of other diseases of the digestive system; Z13.9 Encounter for screening, unspecified
CPT/HCPCS: 99214

== ENCOUNTER → 2023-11-13 15:04 | Outpatient (BNVA) | payer OTHER, MEDICAID, SELFPAY | PROVIDERS: PCP Pediatrics; Referring Provider Pediatrics; Visit Provider Internal Medicine Endocrinology, Diabetes & Metabolism | DX: E11.65 Type 2 diabetes mellitus with hyperglycemia (principal); Z87.19 Personal history of other diseases of the digestive system; Z79.4 Long term (current) use of insulin | CPT/HCPCS: 82947; 83036 ==

== ENCOUNTER 2023-11-28 13:27 | Outpatient (AMB) | payer OTHER, MEDICAID, SELFPAY ==
--- NOTE | 2023-11-28 14:45 | A.OFFVIS_ITS ---
Intake Intake Visit Reasons: Ilet pump training/CONFIRMED Material Control Specialist Required: Yes Material Control Specialist Language: Steersman Name: Alicia [facility] Information Interpreted: non-clinical & clinical Allergies acetaminophen [From Percocet] Allergy (Severe, Verified 11/13/23 15:15) Anaphylaxis oxycodone [From Percocet] Allergy (Severe, Verified 11/13/23 15:15) Anaphylaxis Vicodin Allergy (Unknown, Uncoded 11/13/23 15:15) Anaphylaxis HPI Comprehensive Diabetes Asmnt Most Recent Diabetes Results: Microalb/Creat Ratio 12.6 ug/mg cr (<30) 09/06/23 Cholesterol 211 mg/dL (<200) H 09/06/23 HDL Cholesterol 57 mg/dL (>40) 09/06/23 Triglycerides 220 mg/dL (<150) H 09/06/23 Creatinine 0.67 mg/dL (0.5-1.4) 09/06/23 Blood Urea Nitrogen 18 mg/dL (9-16) H 09/06/23 Sodium 139 mmol/L (135-145) 09/06/23 Potassium 4.4 mmol/L (3.3-5.1) 09/06/23 Chloride 105 mmol/L (96-108) 09/06/23 Carbon Dioxide 28 mmol/L (22-29) 09/06/23 Calcium 9.6 mg/dL (8.4-10.2) 09/06/23 [facility] Medical History (Updated 04/04/22 @ 14:50 by Deon oRjas MD) Right groin pain Arthritis Elevated LFTs Fibromyalgia Bunion, left foot Migraine Asthma Seasonal allergies Mood disorder Joint pain Hyperlipidemia LDL goal <100 Type 2 diabetes mellitus with polyneuropathy Type 2 diabetes mellitus with hyperglycemia Surgical History Hx of colonoscopy (~2019) Hx of cholecystectomy Hx of foot surgery History of bilateral carpal tunnel release Hx of cataract surgery Family History Father Hypertension Mother Diabetes Colon cancer Brother Liver cancer Social History Household Members: Other Household Members Other:: Sister Alcohol intake: current Alcohol intake frequency: does not drink Patient Tobacco Use Status: Never used Tobacco Assessment & Plan Assessment & Plan (1) Type 2 diabetes mellitus with hyperglycemia: Code(s): E11.65 - Type 2 diabetes mellitus with hyperglycemia Qualifiers: Diabetes mellitus detention insulin use: with detention use Qualified Code(s): E11.65 - Type 2 diabetes mellitus with hyperglycemia; Z79.4 - manager long term care (current) use of insulin Plan: Patient presents for pump training for iLet pump and CGM training today. The following topics were reviewed today: -Pump therapy basic concepts: Basal/bolus -Device settings: Bluetooth/mobile connection (if applicable), correct date and time, sound volume -CGM settings(if integrated system): CGM graft views and trend arrows, alerts and alarms, Start new sensor Insulin delivery settings Instructed patient to only use room temperature insulin, how to load cartridge or fill pod, with insulin. Fill tubing and cannula (if applicable) Inserting infusion set or starting pod Troubleshooting after starting new pod or inserting new insulin set: Occlusion, adhesive tape sensitivity, redness Check BG 2 hours after site change Safety information: Importance of a backup plan, for manual injections, proper prescriptions and emergency supplies ketone strips, and rules for testing for ketones Patient was able to insert insulin set today without difficulty. Patient understands the basic concepts of pump therapy, how to give insulin for meals and snacks, how to troubleshoot for hyper and hypoglycemia. Patient will follow up with CDE as instructed Patient will contact CDE with questions or concerns, patient given IT number to support in any technical issues related to insulin pump Coding Level of Care Code Est Pt Level 1 (95359) Diagnoses Type 2 diabetes mellitus with hyperglycemia, with long-term current use of insulin E11.65; Z79.4 Diabetes mellitus detention insulin use: with terminal make up operator use
== END 2023-11-28 14:48 | disposition home or self-care (01) ==
PROVIDERS: PCP Pediatrics; Visit Provider Registered Nurse Diabetes Educator
DX: E11.65 Type 2 diabetes mellitus with hyperglycemia (principal); Z79.4 Long term (current) use of insulin

== ENCOUNTER → 2023-11-28 13:27 | Outpatient (BNVA) | payer OTHER, MEDICAID, SELFPAY | PROVIDERS: PCP Pediatrics; Visit Provider Registered Nurse Diabetes Educator | DX: Z46.81 Encounter for fitting and adjustment of insulin pump (principal); E11.65 Type 2 diabetes mellitus with hyperglycemia | CPT/HCPCS: 99211 ==

== ENCOUNTER → 2023-12-04 15:04 | Outpatient (BNVA) | payer OTHER, MEDICAID, SELFPAY | PROVIDERS: PCP Pediatrics; Visit Provider Registered Nurse Diabetes Educator | DX: Z46.81 Encounter for fitting and adjustment of insulin pump (principal); E11.65 Type 2 diabetes mellitus with hyperglycemia | CPT/HCPCS: 99211 ==

== ENCOUNTER 2023-12-04 15:06 | Outpatient (AMB) | payer OTHER, MEDICAID, SELFPAY ==
--- NOTE | 2023-12-04 15:44 | MHC.AMDMED ---
Intake Intake Visit Reasons: DM Agricultural Produce Washer Required: Yes Agricultural Produce Washer Language: Cement Gun Operator Name: Alicia [facility] Information Interpreted: non-clinical & clinical Accompanied by: Spouse Allergies acetaminophen [From Percocet] Allergy (Severe, Verified 11/13/23 15:15) Anaphylaxis oxycodone [From Percocet] Allergy (Severe, Verified 11/13/23 15:15) Anaphylaxis Vicodin Allergy (Unknown, Uncoded 11/13/23 15:15) Anaphylaxis HPI Comprehensive Diabetes Asmnt Most Recent Diabetes Results: Microalb/Creat Ratio 12.6 ug/mg cr (<30) 09/06/23 Cholesterol 211 mg/dL (<200) H 09/06/23 HDL Cholesterol 57 mg/dL (>40) 09/06/23 Triglycerides 220 mg/dL (<150) H 09/06/23 Creatinine 0.67 mg/dL (0.5-1.4) 09/06/23 Blood Urea Nitrogen 18 mg/dL (9-16) H 09/06/23 Sodium 139 mmol/L (135-145) 09/06/23 Potassium 4.4 mmol/L (3.3-5.1) 09/06/23 Chloride 105 mmol/L (96-108) 09/06/23 Carbon Dioxide 28 mmol/L (22-29) 09/06/23 Calcium 9.6 mg/dL (8.4-10.2) 09/06/23 [facility] Medical History (Updated 04/04/22 @ 14:50 by Deon Rojas MD) Right groin pain Arthritis Elevated LFTs Fibromyalgia Bunion, left foot Migraine Asthma Seasonal allergies Mood disorder Joint pain Hyperlipidemia LDL goal <100 Type 2 diabetes mellitus with polyneuropathy Type 2 diabetes mellitus with hyperglycemia Surgical History Hx of colonoscopy (~2019) Hx of cholecystectomy Hx of foot surgery History of bilateral carpal tunnel release Hx of cataract surgery Family History Father Hypertension Mother Diabetes Colon cancer Brother Liver cancer Social History Household Members: Other Household Members Other:: Sister Alcohol intake: current Alcohol intake frequency: does not drink Patient Tobacco Use Status: Never used Tobacco Assessment & Plan Assessment & Plan (1) Type 2 diabetes mellitus with hyperglycemia: Code(s): E11.65 - Type 2 diabetes mellitus with hyperglycemia Qualifiers: Diabetes mellitus fpc insulin use: with fpc use Qualified Code(s): E11.65 - Type 2 diabetes mellitus with hyperglycemia; Z79.4 - [facility] (current) use of insulin Plan: Patient presents for pump training for iLet pump and CGM training today. The following topics were reviewed today: -Pump therapy basic concepts: Basal/bolus -CGM settings(if integrated system): CGM graft views and trend arrows, alerts and alarms, Start new sensor Patient had changed Dexcom G7 sensor it had become disconnected from insulin pump Instructed patient on how to enter sensor code into iLet, once we entered sensor code pump reconnected to Dexcom G7 Patient's iLet at log in information: User name: [email or web address] Password: [email or web address] Downloaded iLet chad to patient's cellphone, connected patient's cellphone to iLet Instructed patient how to sink data Insulin delivery settings Instructed patient to only use room temperature insulin, how to load cartridge or fill pod, with insulin. Fill tubing and cannula (if applicable) Inserting infusion set or starting pod Troubleshooting after starting new pod or inserting new insulin set: Occlusion, adhesive tape sensitivity, redness Check BG 2 hours after site change Patient was able change insulin delivery set independently at home Patient understands the basic concepts of pump therapy, how to give insulin for meals and snacks, how to troubleshoot for hyper and hypoglycemia. Patient will follow up with CDE as instructed Patient will contact CDE with questions or concerns, patient given IT number to support in any technical issues related to insulin pump Patient Instructions: Patient will follow-up with nursing educator in 1 week Coding Level of Care Code Est Pt Level 1 (86775) Diagnoses Type 2 diabetes mellitus with hyperglycemia, with long-term current use of insulin E11.65; Z79.4 Diabetes mellitus fpc insulin use: with fpc use
== END 2023-12-04 15:53 | disposition home or self-care (01) ==
PROVIDERS: PCP Pediatrics; Visit Provider Registered Nurse Diabetes Educator
DX: E11.65 Type 2 diabetes mellitus with hyperglycemia (principal); Z79.4 Long term (current) use of insulin

== ENCOUNTER 2023-12-20 14:00 | Outpatient (AMB) | payer OTHER, MEDICAID, SELFPAY ==
--- NOTE | 2023-12-20 14:34 | A.OFFVIS_ITS ---
Intake Intake Visit Reasons: DM/LVM Oil Distributor Tender Required: Yes Oil Distributor Tender Language: Belt Builder Name: Alicia [facility] Accompanied by: Spouse Allergies acetaminophen [From Percocet] Allergy (Severe, Verified 11/13/23 15:15) Anaphylaxis oxycodone [From Percocet] Allergy (Severe, Verified 11/13/23 15:15) Anaphylaxis Vicodin Allergy (Unknown, Uncoded 11/13/23 15:15) Anaphylaxis HPI Comprehensive Diabetes Asmnt Most Recent Diabetes Results: Microalb/Creat Ratio 12.6 ug/mg cr (<30) 09/06/23 Cholesterol 211 mg/dL (<200) H 09/06/23 HDL Cholesterol 57 mg/dL (>40) 09/06/23 Triglycerides 220 mg/dL (<150) H 09/06/23 Creatinine 0.67 mg/dL (0.5-1.4) 09/06/23 Blood Urea Nitrogen 18 mg/dL (9-16) H 09/06/23 Sodium 139 mmol/L (135-145) 09/06/23 Potassium 4.4 mmol/L (3.3-5.1) 09/06/23 Chloride 105 mmol/L (96-108) 09/06/23 Carbon Dioxide 28 mmol/L (22-29) 09/06/23 Calcium 9.6 mg/dL (8.4-10.2) 09/06/23 [facility] Medical History (Updated 04/04/22 @ 14:50 by Deon Rojas MD) Right groin pain Arthritis Elevated LFTs Fibromyalgia Bunion, left foot Migraine Asthma Seasonal allergies Mood disorder Joint pain Hyperlipidemia LDL goal <100 Type 2 diabetes mellitus with polyneuropathy Type 2 diabetes mellitus with hyperglycemia Surgical History Hx of colonoscopy (~2019) Hx of cholecystectomy Hx of foot surgery History of bilateral carpal tunnel release Hx of cataract surgery Family History Father Hypertension Mother Diabetes Colon cancer Brother Liver cancer Social History Household Members: Other Household Members Other:: Sister Alcohol intake: current Alcohol intake frequency: does not drink Patient Tobacco Use Status: Never used Tobacco Assessment & Plan Assessment & Plan (1) Type 2 diabetes mellitus with hyperglycemia: Code(s): E11.65 - Type 2 diabetes mellitus with hyperglycemia Qualifiers: Diabetes mellitus skilled nursing insulin use: with skilled nursing use Qualified Code(s): E11.65 - Type 2 diabetes mellitus with hyperglycemia; Z79.4 - longterm (current) use of insulin Plan: Patient presents for pump training for iLet pump and CGM training today. The following topics were reviewed today: -Pump therapy basic concepts: Basal/bolus -CGM settings(if integrated system): CGM graft views and trend arrows, alerts and alarms, Start new sensor Patient's iLet at log in information: User name: Password: [email or web address] Patient is currently off pump She is having difficulty with pump, and insulin delivery set change Her average glucose for the past 7 days is 347 mg/dL She was not bolusing for meals when she was using the pump Her total daily dose of insulin is approximately 35.7 units Patient forgot to bring vial of insulin today's so we are unable to review how to change insulin delivery set Recommended patient continue with MDI we have an opportunity to review how to change insulin delivery such She will be taking Lantus 50 units daily She uses fixed dose of lispro prior to meals Requested Dr. Garcia send prescription for ketone strips to patient's pharmacy Insulin delivery settings Instructed patient to only use room temperature insulin, how to load cartridge or fill pod, with insulin. Fill tubing and cannula (if applicable) Inserting infusion set or starting pod Troubleshooting after starting new pod or inserting new insulin set: Occlusion, adhesive tape sensitivity, redness Check BG 2 hours after site change Patient was able change insulin delivery set independently at home Patient understands the basic concepts of pump therapy, how to give insulin for meals and snacks, how to troubleshoot for hyper and hypoglycemia. Patient will follow up with CDE as instructed Patient will contact CDE with questions or concerns, patient given IT number to support in any technical issues related to insulin pump Patient Instructions: Follow-up with inspector floor sub assembly in 1 week Coding Level of Care Code Est Pt Level 1 (94005) Diagnoses Type 2 diabetes mellitus with hyperglycemia, with long-term current use of insulin E11.65; Z79.4 Diabetes mellitus skilled nursing insulin use: with marine oil terminal superintendent use
== END 2023-12-20 14:45 | disposition home or self-care (01) ==
PROVIDERS: PCP Pediatrics; Visit Provider Registered Nurse Diabetes Educator
DX: E11.65 Type 2 diabetes mellitus with hyperglycemia (principal); Z79.4 Long term (current) use of insulin

== ENCOUNTER → 2023-12-20 14:00 | Outpatient (BNVA) | payer OTHER, MEDICAID, SELFPAY | PROVIDERS: PCP Pediatrics; Visit Provider Registered Nurse Diabetes Educator | DX: Z46.81 Encounter for fitting and adjustment of insulin pump (principal); E11.65 Type 2 diabetes mellitus with hyperglycemia | CPT/HCPCS: 99211 ==

== ENCOUNTER 2023-12-27 14:48 | Outpatient (AMB) | payer OTHER, MEDICAID, SELFPAY ==
--- NOTE | 2023-12-27 15:17 | MHC.AMDMED ---
Intake Intake Visit Reasons: DM/LVM Accompanied by: Self / Same As Patient Allergies acetaminophen [From Percocet] Allergy (Severe, Verified 11/13/23 15:15) Anaphylaxis oxycodone [From Percocet] Allergy (Severe, Verified 11/13/23 15:15) Anaphylaxis Vicodin Allergy (Unknown, Uncoded 11/13/23 15:15) Anaphylaxis HPI Comprehensive Diabetes Asmnt Most Recent Diabetes Results: No Data to Display [facility] Medical History (Updated 04/04/22 @ 14:50 by Deon Rojas MD) Right groin pain Arthritis Elevated LFTs Fibromyalgia Bunion, left foot Migraine Asthma Seasonal allergies Mood disorder Joint pain Hyperlipidemia LDL goal <100 Type 2 diabetes mellitus with polyneuropathy Type 2 diabetes mellitus with hyperglycemia Surgical History Hx of colonoscopy (~2019) Hx of cholecystectomy Hx of foot surgery History of bilateral carpal tunnel release Hx of cataract surgery Family History Father Hypertension Mother Diabetes Colon cancer Brother Liver cancer Social History Household Members: Other Household Members Other:: Sister Alcohol intake: current Alcohol intake frequency: does not drink Patient Tobacco Use Status: Never used Tobacco Assessment & Plan Assessment & Plan (1) Type 2 diabetes mellitus with hyperglycemia: Code(s): E11.65 - Type 2 diabetes mellitus with hyperglycemia Qualifiers: Diabetes mellitus equipment operator intermodal yard insulin use: with equipment operator intermodal yard use Qualified Code(s): E11.65 - Type 2 diabetes mellitus with hyperglycemia; Z79.4 - [facility] (current) use of insulin Plan: Patient presents for pump training for iLet pump and CGM training today. The following topics were reviewed today: -Pump therapy basic concepts: Basal/bolus -Device settings: Bluetooth/mobile connection (if applicable), correct date and time, sound volume -CGM settings(if integrated system): CGM graft views and trend arrows, alerts and alarms, Start new sensor Set up new Dexcom G7 sensor, showed patient how to enter sensor code into insulin pump Insulin delivery settings Instructed patient to only use room temperature insulin, how to load cartridge or fill pod, with insulin. Fill tubing and cannula (if applicable) Inserting infusion set or starting pod Troubleshooting after starting new pod or inserting new insulin set: Occlusion, adhesive tape sensitivity, redness Check BG 2 hours after site change Safety information: Importance of a backup plan, for manual injections, proper prescriptions and emergency supplies ketone strips, and rules for testing for ketones Patient was able to insert insulin set today without difficulty. Patient understands the basic concepts of pump therapy, how to give insulin for meals and snacks, how to troubleshoot for hyper and hypoglycemia. Patient will follow up with CDE as instructed Patient will contact CDE with questions or concerns, patient given IT number to support in any technical issues related to insulin pump Patient Instructions: Patient will follow-up with telehealth nurse educator in 1 week Coding Level of Care Code Est Pt Level 1 (08459) Diagnoses Type 2 diabetes mellitus with hyperglycemia, with long-term current use of insulin E11.65; Z79.4 Diabetes mellitus equipment operator intermodal yard insulin use: with equipment operator intermodal yard use
== END 2023-12-27 15:19 | disposition home or self-care (01) ==
PROVIDERS: PCP Pediatrics; Visit Provider Registered Nurse Diabetes Educator
DX: E11.65 Type 2 diabetes mellitus with hyperglycemia (principal); Z79.4 Long term (current) use of insulin

== ENCOUNTER → 2023-12-27 14:48 | Outpatient (BNVA) | payer OTHER, MEDICAID, SELFPAY | PROVIDERS: PCP Pediatrics; Visit Provider Registered Nurse Diabetes Educator | DX: Z46.81 Encounter for fitting and adjustment of insulin pump (principal); E11.65 Type 2 diabetes mellitus with hyperglycemia; Z79.4 Long term (current) use of insulin | CPT/HCPCS: 99211 ==

== ENCOUNTER 2024-01-15 13:37 | Outpatient (AMB) | payer OTHER, MEDICAID, SELFPAY ==
--- NOTE | 2024-01-15 14:10 | A.OFFVIS_ITS ---
Intake Intake Visit Reasons: issues trying to get insulin from pump/CONFIRMED Tier Lift Operator Required: Yes Tier Lift Operator Language: Criminal Justice Social Worker Name: Alicia [facility] Information Interpreted: non-clinical & clinical Accompanied by: Spouse Allergies acetaminophen [From Percocet] Allergy (Severe, Verified 11/13/23 15:15) Anaphylaxis oxycodone [From Percocet] Allergy (Severe, Verified 11/13/23 15:15) Anaphylaxis Vicodin Allergy (Unknown, Uncoded 11/13/23 15:15) Anaphylaxis HPI Comprehensive Diabetes Asmnt Most Recent Diabetes Results: Microalb/Creat Ratio 12.6 ug/mg cr (<30) 09/06/23 Cholesterol 211 mg/dL (<200) H 09/06/23 HDL Cholesterol 57 mg/dL (>40) 09/06/23 Triglycerides 220 mg/dL (<150) H 09/06/23 Creatinine 0.67 mg/dL (0.5-1.4) 09/06/23 Blood Urea Nitrogen 18 mg/dL (9-16) H 09/06/23 Sodium 139 mmol/L (135-145) 09/06/23 Potassium 4.4 mmol/L (3.3-5.1) 09/06/23 Chloride 105 mmol/L (96-108) 09/06/23 Carbon Dioxide 28 mmol/L (22-29) 09/06/23 Calcium 9.6 mg/dL (8.4-10.2) 09/06/23 AST 27 U/L (5-31) 03/04/21 ALT 39 U/L (0-31) H 03/04/21 Total Protein 8.3 g/dL (6.5-8.0) H 03/04/21 Albumin 4.4 g/dL (3.5-5.0) 03/04/21 [facility] Medical History (Updated 04/04/22 @ 14:50 by Deon Rojas MD) Right groin pain Arthritis Elevated LFTs Fibromyalgia Bunion, left foot Migraine Asthma Seasonal allergies Mood disorder Joint pain Hyperlipidemia LDL goal <100 Type 2 diabetes mellitus with polyneuropathy Type 2 diabetes mellitus with hyperglycemia Surgical History Hx of colonoscopy (~2019) Hx of cholecystectomy Hx of foot surgery History of bilateral carpal tunnel release Hx of cataract surgery Family History Father Hypertension Mother Diabetes Colon cancer Brother Liver cancer Social History Household Members: Other Household Members Other:: Sister Alcohol intake: current Alcohol intake frequency: does not drink Patient Tobacco Use Status: Never used Tobacco Assessment & Plan Assessment & Plan (1) Type 2 diabetes mellitus with hyperglycemia: Code(s): E11.65 - Type 2 diabetes mellitus with hyperglycemia Qualifiers: Diabetes mellitus alf insulin use: with alf use Qualified Code(s): E11.65 - Type 2 diabetes mellitus with hyperglycemia; Z79.4 - [facility] (current) use of insulin Plan: Patient presents for pump training for iLet pump and CGM training today. The following topics were reviewed today: -Pump therapy basic concepts: Basal/bolus Patient had entered incorrect sensor code, so was unable to connect ilet to Dexcom. Entered current code into insulin pump, pump was able to connect with Dexcom Patient had faulty connector piece, and was not unable to secure reservoir into pump, called iLet support We were able to insert new connector, and the reservoir was secured Instructed patient to only use room temperature insulin, how to load cartridge or fill pod, with insulin. Fill tubing and cannula (if applicable) Inserting infusion set or starting pod Troubleshooting after starting new pod or inserting new insulin set: Occlusion, adhesive tape sensitivity, redness Check BG 2 hours after site change Patient was able to insert insulin set today without difficulty. Patient understands how to troubleshoot for hyper and hypoglycemia. Patient will follow up with CDE as instructed Patient will contact CDE with questions or concerns, patient given IT number to support in any technical issues related to insulin pump Patient Instructions: Patient will follow-up with sales merchandising specialist in 2 weeks Coding Level of Care Code Est Pt Level 1 (59294) Diagnoses Type 2 diabetes mellitus with hyperglycemia, with long-term current use of insulin E11.65; Z79.4 Diabetes mellitus certified nurse insulin use: with certified nurse use
== END 2024-01-15 14:14 | disposition home or self-care (01) ==
PROVIDERS: PCP Pediatrics; Visit Provider Registered Nurse Diabetes Educator
DX: E11.65 Type 2 diabetes mellitus with hyperglycemia (principal); Z79.4 Long term (current) use of insulin

== ENCOUNTER → 2024-01-15 13:37 | Outpatient (BNVA) | payer OTHER, MEDICAID, SELFPAY | PROVIDERS: PCP Pediatrics; Visit Provider Registered Nurse Diabetes Educator | DX: Z46.81 Encounter for fitting and adjustment of insulin pump (principal); E11.65 Type 2 diabetes mellitus with hyperglycemia | CPT/HCPCS: 99211 ==

== ENCOUNTER 2024-01-30 14:19 | Outpatient (AMB) | payer OTHER, MEDICAID, SELFPAY ==
--- NOTE | 2024-01-30 14:34 | MHC.AMDMED ---
Intake Intake Visit Reasons: T2DM Software Applications Developer Required: Yes Software Applications Developer Language: Forest Law And Policy Professor Name: Chela [facility] Information Interpreted: non-clinical & clinical Accompanied by: Spouse Allergies acetaminophen [From Percocet] Allergy (Severe, Verified 11/13/23 15:15) Anaphylaxis oxycodone [From Percocet] Allergy (Severe, Verified 11/13/23 15:15) Anaphylaxis Vicodin Allergy (Unknown, Uncoded 11/13/23 15:15) Anaphylaxis HPI Comprehensive Diabetes Asmnt Most Recent Diabetes Results: No Data to Display [facility] Medical History (Updated 04/04/22 @ 14:50 by Deon Rojas MD) Right groin pain Arthritis Elevated LFTs Fibromyalgia Bunion, left foot Migraine Asthma Seasonal allergies Mood disorder Joint pain Hyperlipidemia LDL goal <100 Type 2 diabetes mellitus with polyneuropathy Type 2 diabetes mellitus with hyperglycemia Surgical History Hx of colonoscopy (~2019) Hx of cholecystectomy Hx of foot surgery History of bilateral carpal tunnel release Hx of cataract surgery Family History Father Hypertension Mother Diabetes Colon cancer Brother Liver cancer Social History Household Members: Other Household Members Other:: Sister Alcohol intake: current Alcohol intake frequency: does not drink Patient Tobacco Use Status: Never used Tobacco Assessment & Plan Assessment & Plan (1) Type 2 diabetes mellitus with hyperglycemia: Code(s): E11.65 - Type 2 diabetes mellitus with hyperglycemia Qualifiers: Diabetes mellitus intermediate project manager insulin use: with fdc use Qualified Code(s): E11.65 - Type 2 diabetes mellitus with hyperglycemia; Z79.4 - jail (current) use of insulin Plan: Patient presents for pump training for iLet pump and CGM training today. The following topics were reviewed today: -contact detach insulin delivery set -switching over to pre-filled Fiasp vials -Always dose 15 minutes prior to meals - Off pump backup insulin plan ??? High Alert: off mg/dl ??? Low Alert: 70 mg/dl CGM Unable to access data at this time TDD: Basal: Although patient is still struggling with insulin pump, reports being able to wear it more consistently. Reviewed with patient changes to insulin delivery set and pre fill cartridges may make things less complication. Patient agreed to this plan Reviewed Safety information: Importance of a backup plan, for manual injections, proper prescriptions and emergency supplies ketone strips, and rules for testing for ketones Patient understands the basic concepts of pump therapy, how to give insulin for meals and snacks, how to troubleshoot for hyper and hypoglycemia. Patient will follow up with [facility] as instructed Patient will contact [facility] with questions or concerns, patient given IT number to support in any technical issues related to insulin pump Portions of this note were created using voice recognition software, please excuse any words or phrases that may have been misinterpreted. Patient Instructions: Patient will follow-up in 1 month Coding Level of Care Code Est Pt Level 1 (53574) Diagnoses Type 2 diabetes mellitus with hyperglycemia, with long-term current use of insulin E11.65; Z79.4 Diabetes mellitus intermediate project manager insulin use: with intermediate project manager use
== END 2024-01-30 14:59 | disposition home or self-care (01) ==
LOC: HO.ENCR 14:19
PROVIDERS: PCP Pediatrics; Visit Provider Registered Nurse Diabetes Educator
DX: E11.65 Type 2 diabetes mellitus with hyperglycemia (principal); Z79.4 Long term (current) use of insulin

== ENCOUNTER → 2024-01-30 14:19 | Outpatient (BNVA) | payer OTHER, MEDICAID, SELFPAY | PROVIDERS: PCP Pediatrics; Visit Provider Registered Nurse Diabetes Educator | DX: Z46.81 Encounter for fitting and adjustment of insulin pump (principal); E11.65 Type 2 diabetes mellitus with hyperglycemia; Z79.4 Long term (current) use of insulin | CPT/HCPCS: 99211 ==

== ENCOUNTER 2024-02-29 13:06 | Outpatient (AMB) | payer OTHER, MEDICAID, SELFPAY ==
--- NOTE | 2024-02-29 13:45 | A.OFFVIS_ITS ---
Intake Intake Visit Reasons: T2DM/CONFIRMED Freight Separator Required: Yes Freight Separator Language: Kinyarwanda Accompanied by: Self / Same As Patient Allergies acetaminophen [From Percocet] Allergy (Severe, Verified 11/13/23 15:15) Anaphylaxis oxycodone [From Percocet] Allergy (Severe, Verified 11/13/23 15:15) Anaphylaxis Vicodin Allergy (Unknown, Uncoded 11/13/23 15:15) Anaphylaxis HPI Comprehensive Diabetes Asmnt Most Recent Diabetes Results: No Data to Display [facility] Medical History (Updated 04/04/22 @ 14:50 by Deon Rojas MD) Right groin pain Arthritis Elevated LFTs Fibromyalgia Bunion, left foot Migraine Asthma Seasonal allergies Mood disorder Joint pain Hyperlipidemia LDL goal <100 Type 2 diabetes mellitus with polyneuropathy Type 2 diabetes mellitus with hyperglycemia Surgical History Hx of colonoscopy (~2019) Hx of cholecystectomy Hx of foot surgery History of bilateral carpal tunnel release Hx of cataract surgery Family History Father Hypertension Mother Diabetes Colon cancer Brother Liver cancer Social History Household Members: Other Household Members Other:: Sister Alcohol intake: current Alcohol intake frequency: does not drink Patient Tobacco Use Status: Never used Tobacco Assessment & Plan Assessment & Plan (1) Type 2 diabetes mellitus with hyperglycemia: Code(s): E11.65 - Type 2 diabetes mellitus with hyperglycemia Qualifiers: Diabetes mellitus director long term care insulin use: with senior care use Qualified Code(s): E11.65 - Type 2 diabetes mellitus with hyperglycemia; Z79.4 - middle or intermediate school principal (current) use of insulin Plan: Patient presents for pump training for iLet pump and CGM training today. The following topics were reviewed today: -how to enter Dexcom G7 code into iLet -how to use the contact detach insulin delivery set - Fiasp pre filled cartridges ??? High Alert: 250 mg/dl ??? Low Alert: 70 mg/dl CGM : Above target 84.1% At target 15.7% Below target 0.1% Patient reported she developed an infection at insulin delivery site. Instructed patient that she should continue to monitor site, for increased redness and discharge or if she develops fever she should go to PCP or urgent care Patient removed insulin pump because she ran out of Dexcom G7 sensors, patient given sample Dexcom G7 sensors at today's visit. Patient left with Dexcom G7 sensor in warmup Patient reported she received insulin pump supplies from [employer] but has not open the box. Instructed patient to go home in open box and put insulin cartridges in the refrigerator to store them TDD: 79.6 units Basal: 39 units Instructed patient to only use room temperature insulin, how to load cartridge or fill pod, with insulin. Fill tubing and cannula (if applicable) Troubleshooting after starting new pod or inserting new insulin set: Occlusion, adhesive tape sensitivity, redness Check BG 2 hours after site change Patient understands the basic concepts of pump therapy, how to give insulin for meals and snacks, how to troubleshoot for hyper and hypoglycemia. Patient will follow up with [facility] as instructed Patient will contact [facility] with questions or concerns, patient given IT number to support in any technical issues related to insulin pump Portions of this note were created using voice recognition software, please excuse any words or phrases that may have been misinterpreted. Patient Instructions: Patient will follow-up with school vocational educator on 03/11/2024 Coding Level of Care Code Est Pt Level 1 (43843) Diagnoses Type 2 diabetes mellitus with hyperglycemia, with long-term current use of insulin E11.65; Z79.4 Diabetes mellitus director long term care insulin use: with director long term care use
== END 2024-02-29 13:53 | disposition home or self-care (01) ==
PROVIDERS: PCP Pediatrics; Visit Provider Registered Nurse Diabetes Educator
DX: E11.65 Type 2 diabetes mellitus with hyperglycemia (principal); Z79.4 Long term (current) use of insulin

== ENCOUNTER → 2024-02-29 13:06 | Outpatient (BNVA) | payer OTHER, MEDICAID, SELFPAY | PROVIDERS: PCP Pediatrics; Visit Provider Registered Nurse Diabetes Educator | DX: Z46.81 Encounter for fitting and adjustment of insulin pump (principal); E11.65 Type 2 diabetes mellitus with hyperglycemia | CPT/HCPCS: 99211 ==

== ENCOUNTER 2024-04-11 15:21 | Outpatient (AMB) | payer OTHER, MEDICAID, SELFPAY ==
--- NOTE | 2024-04-11 16:31 | A.OFFVIS_ITS ---
Intake Intake Visit Reasons: T1DM Accompanied by: Self / Same As Patient Allergies acetaminophen [From Percocet] Allergy (Severe, Verified 04/11/24 15:41) Anaphylaxis oxycodone [From Percocet] Allergy (Severe, Verified 04/11/24 15:41) Anaphylaxis Vicodin Allergy (Unknown, Uncoded 04/11/24 15:41) Anaphylaxis HPI Comprehensive Diabetes Asmnt Most Recent Diabetes Results: No Data to Display [facility] Medical History (Updated 04/04/22 @ 14:50 by Deon Rojas MD) Right groin pain Arthritis Elevated LFTs Fibromyalgia Bunion, left foot Migraine Asthma Seasonal allergies Mood disorder Joint pain Hyperlipidemia LDL goal <100 Type 2 diabetes mellitus with polyneuropathy Type 2 diabetes mellitus with hyperglycemia Surgical History Hx of colonoscopy (~2019) Hx of cholecystectomy Hx of foot surgery History of bilateral carpal tunnel release Hx of cataract surgery Family History Father Hypertension Mother Diabetes Colon cancer Brother Liver cancer Social History Household Members: Other Household Members Other:: Sister Alcohol intake: current Alcohol intake frequency: does not drink Patient Tobacco Use Status: Never used Tobacco Assessment & Plan Assessment & Plan (1) Type 2 diabetes mellitus with hyperglycemia: Code(s): E11.65 - Type 2 diabetes mellitus with hyperglycemia Qualifiers: Diabetes mellitus exterminator termite insulin use: with exterminator termite use Qualified Code(s): E11.65 - Type 2 diabetes mellitus with hyperglycemia; Z79.4 - residential (current) use of insulin Plan: Patient at visit to set up an insert Dexcom G7 Pt lost iLet draw string knotter while on vacation E-mail sent to Blanche at [employer] to see if we can get a replacement draw string knotter Patient has not been taking mealtime insulin since she has cartridges for her pump, message sent to SIGNAL WORKER HELPER to write prescription for Fiasp pen Instructed patient to take Fiasp 8 unit small meal, 10 unit medium meal and 16 unit large meal 6 u snack 4 times a day; So patient can take mealtime insulin Patient reports she has been taking multiple daily injections of Lantus, instructed patient to take Lantus 70 units once a day Instructed patient sensors water proof you can shower, or swim do not submerge sensor in water for over 30 minutes Is sensor falls off cannot put back in you need to replace sensor, customer service number given to patient for sensor replacement Sensor placed on the back of L arm Patient left visit with sensor in warmup Reviewed how to interpret trend arrows Reminded patient that to check finger sticks if symptoms do not match sensor reading. Discussed lag time between finger stick and sensor data.? Instructed patient she should always keep blood glucometer for backup testing if needed Reviewed delay of CGM from fingersticks Reminded pt that if symptoms do not match sensor still needs to check fingersticks. Portions of this note were created using voice recognition software, please excuse any words or phrases that may have been misinterpreted. Patient Instructions: Patient will follow-up with critical care educator in 6 weeks If she finds insulin pump draw string knotter instructed to move appointment up so we can restart pump therapy Coding Level of Care Code Est Pt Level 1 (01566) Diagnoses Type 2 diabetes mellitus with hyperglycemia, with long-term current use of insulin E11.65; Z79.4 Diabetes mellitus exterminator termite insulin use: with prison use Results AMB Hemoglobin A1c AMB Hemoglobin A1c 11.0 % Last Edit by YUSUF Linares on 04/11/24 15:4 9
== END 2024-04-11 16:35 | disposition home or self-care (01) ==
PROVIDERS: PCP Pediatrics; Visit Provider Registered Nurse Diabetes Educator
DX: E11.65 Type 2 diabetes mellitus with hyperglycemia (principal); Z79.4 Long term (current) use of insulin

== ENCOUNTER 2024-04-11 15:21 | Outpatient (AMB) | payer OTHER, MEDICAID, SELFPAY ==
--- NOTE | 2024-04-11 15:31 | A.OFFVIS_ITS ---
Vital Signs 04/11/24 15:33 Height 5 ft 5 in Weight 152 lb 1.903 oz BMI 25.3 BP 118/84 Blood Pressure Location Rt brachial Position Sitting Pulse 86 Pulse Source Pulse Oximeter Intake Visit Reasons: T1DM/LVM Intake Note: Patient presents today to establish treatment for Type 1 Diabetes Mellitus: Last Diabetic eye exam was on: DUE Last Podiatry exam was on: Does not see a Senior Gl Accountant Most recent HbA1c: 11.0%, 04/11/2024 Random Glucose- 274 mg/dL, Today Web Site Developer Required: Yes Accompanied by: Self / Same As Patient Allergies acetaminophen [From Percocet] Allergy (Severe, Verified 04/11/24 15:41) Anaphylaxis oxycodone [From Percocet] Allergy (Severe, Verified 04/11/24 15:41) Anaphylaxis Vicodin Allergy (Unknown, Uncoded 04/11/24 15:41) Anaphylaxis HPI Comments Details: Patient is a 53 yo female with DM type 2 diagnosed approximately 2017 for management of her diabetes. Patient was last seen by Kelly BELL 5 weeks ago. She traveled to [place] and unfortunately lost the it assistant to her new islet pump. She ran out of G7 sensors and did not have any test strips so she has not been testing. She has been taking Lantus 70 units and covering her meals with 8-10 units of insulin. Past medical history includes : DM2, HLD, fibromyalgia Micro and macrovascular complications: none known. Symptoms: + numbness, tingling and cramping in legs Hypoglycemia: no recent symptoms Hyperglycemia: reports polyuria, and polydysia, nocturia several times a night Has been treated for Non-Hodgkin's Lymphoma Has stong family hx of Type 2 DM Exercise - walks Eye exam: needs to make appt [facility] Medical History (Updated 04/04/22 @ 14:50 by Deon Rojas MD) Right groin pain Arthritis Elevated LFTs Fibromyalgia Bunion, left foot Migraine Asthma Seasonal allergies Mood disorder Joint pain Hyperlipidemia LDL goal <100 Type 2 diabetes mellitus with polyneuropathy Type 2 diabetes mellitus with hyperglycemia Surgical History Hx of colonoscopy (~2019) Hx of cholecystectomy Hx of foot surgery History of bilateral carpal tunnel release Hx of cataract surgery Family History Father Hypertension Mother Diabetes Colon cancer Brother Liver cancer Social History Household Members: Other Household Members Other:: Sister Alcohol intake: current Alcohol intake frequency: does not drink Patient Tobacco Use Status: Never used Tobacco Physical Exam Vital Signs: Last Vital Signs Pulse 86 04/11/24 15:33 BP 118/84 04/11/24 15:33 BMI result Body Mass Index 25.3 Const Other: Absence of Cushingoid features. Absence of acromegalic features. Neck exam reveals nl size thyroid about 15 gms. No thyroid nodules palpable. Heart S1 S2, Reg R/R. No M/R G. Skin exam reveals absence of vitiligo or acanthosis nigricans. Results AMB Hemoglobin A1c AMB Hemoglobin A1c 11.0 % Last Edit by YUSUF Linares on 04/11/24 15:4 9 Results Reviewed Results Reviewed: Laboratory Last Values Glucose (Clinic) 274 mg/dL (60-115) H 04/11/24 15:38 Hgb A1c (Clinic) 11.0 % (4.0-6.0) H 04/11/24 15:48 Laboratory Tests 03/04/21 11/15/21 07/31/23 15:13 09:20 15:56 Plt Count 239 Potassium Creatinine Hgb A1c (Clinic) 11.5 H 13.6 H C-Peptide 2.49 Calcium 10.1 D AST 27 ALT 39 H Triglycerides Cholesterol LDL Cholesterol, Calc HDL Cholesterol TSH Urine Creatinine Urine Microalbumin Microalb/Creat Ratio 09/06/23 11/13/23 11:30 15:22 Plt Count Potassium 4.4 Creatinine 0.67 Hgb A1c (Clinic) 9.2 H C-Peptide Calcium AST ALT Triglycerides 220 H Cholesterol 211 H LDL Cholesterol, Calc 110 H HDL Cholesterol 57 TSH 5.75 H Urine Creatinine 63.27 Urine Microalbumin 8.0 Microalb/Creat Ratio 12.6 Assessment & Plan Assessment & Plan (1) Type 2 diabetes mellitus with hyperglycemia: Code(s): E11.65 - Type 2 diabetes mellitus with hyperglycemia Category: Medical Qualifiers: Diabetes mellitus halfway insulin use: with halfway use Qualified Code(s): E11.65 - Type 2 diabetes mellitus with hyperglycemia; Z79.4 - watermelon inspector (current) use of insulin Plan: Type 2 diabetic who is on a islet pump. Unfortunately she recently lost the it assistant and ran out of G7 sensors. Today in the office I gave her samples for several G7 sensors and she briefly met with Kelly BELL who was attempting to arrange a new it assistant for the patient. In the interim she will cover with Lantus and short-acting insulin with meals and snacks q.i.d. A prescription for short-acting insulin, test strips and lancets were sent. She will return in several weeks with Kelly BELL Orders: Orders AMB Hemoglobin A1c 04/11/24 E11.9 - Type 2 diabetes mellitus without complications Medications: New insulin aspart (niacinamide) 100 unit/mL (3 mL) (Fiasp FlexTouch U-100 Insulin) 4-16 units qid with meals subcutaneously 4 times a day; 30 days 15 mL 4RF blood-glucose meter (FreeStyle Victoria Lite kit) As directed qid prn pump failure for use with freestyle lite strips 1 ea 1RF pen needle, diabetic (BD Ultra-Fine Tania Pen Needle) As directed qid 150 ea 1RF Refilled blood sugar diagnostic (FreeStyle Lite Strips) As directed four times a day 150 ea 11RF E11.65 - Type 2 diabetes mellitus with hyperglycemia, Z79.4 - watermelon inspector (current) use of insulin Coding Level of Care Code Est Pt Level 4 (59864) Complex EM visit Add On G2211 Diagnoses Type 2 diabetes mellitus with hyperglycemia, with long-term current use of insulin E11.65; Z79.4 Diabetes mellitus regional intermodal truck driver insulin use: with regional intermodal truck driver use Time Spent (min) 30 Comment , chart review, face to face, documenting
[2024-04-11 15:33] VITALS: BP 118/84; PULSE 86; BMI 25.3
[2024-04-11 15:45] LABS: Glucose, Whole Blood 274 mg/dL (60-115)
== END 2024-04-11 16:32 | disposition home or self-care (01) ==
PROVIDERS: PCP Pediatrics; Visit Provider Nurse Practitioner Adult Health
DX: E11.65 Type 2 diabetes mellitus with hyperglycemia (principal); Z79.4 Long term (current) use of insulin
CPT/HCPCS: 99214; G2211

== ENCOUNTER → 2024-04-11 15:21 | Outpatient (BNVA) | payer OTHER, MEDICAID, SELFPAY | PROVIDERS: PCP Pediatrics; Visit Provider Registered Nurse Diabetes Educator | DX: E11.65 Type 2 diabetes mellitus with hyperglycemia (principal); Z79.4 Long term (current) use of insulin | CPT/HCPCS: 82947; 83036; 99211 ==

== ENCOUNTER 2024-05-03 15:13 | Outpatient (AMB) | payer OTHER, MEDICAID, SELFPAY ==
[2024-05-03 15:18] VITALS: BP 116/78; PULSE 74; BMI 25.3
--- NOTE | 2024-05-03 15:18 | A.OFFVIS_ITS ---
Vital Signs 05/03/24 15:18 Height 5 ft 5 in Weight 152 lb 1.903 oz BMI 25.3 BP 116/78 Blood Pressure Location Rt brachial Position Sitting Pulse 74 Pulse Source Pulse Oximeter Intake Visit Reasons: DM w pump/LVM Intake Note: Patient presents today to establish treatment for Type 1 Diabetes Mellitus: Last Diabetic eye exam was on: DUE Last Podiatry exam was on: Does not see a Boat Engines Installer Most recent HbA1c: 11.0%, 04/11/2024 Random Glucose- 329mg/dL, Today Silk Snapper Required: Yes Silk Snapper Language: Spirits Model Services: Silk Snapper Present Silk Snapper Name: YUSUF Linares/NEO Zuniga Information Interpreted: non-clinical & clinical Accompanied by: Self / Same As Patient Allergies acetaminophen [From Percocet] Allergy (Severe, Verified 05/03/24 15:23) Anaphylaxis oxycodone [From Percocet] Allergy (Severe, Verified 05/03/24 15:23) Anaphylaxis Vicodin Allergy (Unknown, Uncoded 05/03/24 15:23) Anaphylaxis HPI Comments Details: Patient is a 53 yo female with DM type 2 diagnosed approximately 2017 for management of her diabetes. She traveled to [place] and unfortunately lost the marketing operations associate to her new islet pump which she has since found. She is planning to transition back to [facility] today. She has been taking Lantus 70 units and covering her meals with 8-10 units of insulin. Past medical history includes : DM2, HLD, fibromyalgia Micro and macrovascular complications: none known. Symptoms: + numbness, tingling and cramping in legs Hypoglycemia: no recent symptoms Hyperglycemia: reports polyuria, and polydysia, nocturia several times a night Has been treated for Non-Hodgkin's Lymphoma Has stong family hx of Type 2 DM Exercise - walks Eye exam: needs to make appt and would like referral [facility] Medical History Right groin pain Arthritis Elevated LFTs Fibromyalgia Bunion, left foot Migraine Asthma Seasonal allergies Mood disorder Joint pain Hyperlipidemia LDL goal <100 Type 2 diabetes mellitus with polyneuropathy Type 2 diabetes mellitus with hyperglycemia Surgical History Hx of colonoscopy (~2019) Hx of cholecystectomy Hx of foot surgery History of bilateral carpal tunnel release Hx of cataract surgery Family History Father Hypertension Mother Diabetes Colon cancer Brother Liver cancer Social History Household Members: Other Household Members Other:: Sister Alcohol intake: current Alcohol intake frequency: does not drink Patient Tobacco Use Status: Never used Tobacco Physical Exam Vital Signs: Last Vital Signs Pulse 74 05/03/24 15:18 BP 116/78 05/03/24 15:18 BMI result Body Mass Index 25.3 Const Other: Absence of Cushingoid features. Absence of acromegalic features. Neck exam reveals nl size thyroid about 15 gms. No thyroid nodules palpable. Nl respiratory effort. Skin exam reveals absence of vitiligo or acanthosis nigricans. Assessment & Plan Assessment & Plan (1) Type 2 diabetes mellitus with hyperglycemia: Code(s): E11.65 - Type 2 diabetes mellitus with hyperglycemia Category: Medical Qualifiers: Diabetes mellitus tobacco sorter insulin use: with tobacco sorter use Qualified Code(s): E11.65 - Type 2 diabetes mellitus with hyperglycemia; Z79.4 - [facility] (current) use of insulin Plan: Patient will restart insulin pump. She successfully paired sensor to pump and will go home and insert. Settings have not been altered, She will return in 2-3 weeks with DM educ and 6 weeks with CLOTHING PATTERN PREPARER Orders: Referrals Ophthalmology Referral E11.65 - Type 2 diabetes mellitus with hyperglycemia, Z79.4 - [facility] (current) use of insulin Coding Level of Care Code Est Pt Level 2 (21523) Complex EM visit Add On G2211 Diagnoses Type 2 diabetes mellitus with hyperglycemia, with long-term current use of insulin E11.65; Z79.4 Diabetes mellitus nursing home insulin use: with nursing home use Time Spent (min) 20 Comment counseling patient, chart review face to face chart doc
[2024-05-03 15:28] LABS: Glucose, Whole Blood 329 mg/dL (60-115)
== END 2024-05-03 15:46 | disposition home or self-care (01) ==
PROVIDERS: PCP Pediatrics; Visit Provider Nurse Practitioner Adult Health
DX: E11.65 Type 2 diabetes mellitus with hyperglycemia (principal); Z79.4 Long term (current) use of insulin
CPT/HCPCS: 99212; G2211

== ENCOUNTER → 2024-05-03 15:13 | Outpatient (BNVA) | payer OTHER, MEDICAID, SELFPAY | PROVIDERS: PCP Pediatrics; Visit Provider Nurse Practitioner Adult Health | DX: E11.65 Type 2 diabetes mellitus with hyperglycemia (principal); Z79.4 Long term (current) use of insulin | CPT/HCPCS: 82947 ==

== ENCOUNTER 2024-05-21 14:47 | Outpatient (AMB) | payer OTHER, MEDICAID, SELFPAY ==
--- NOTE | 2024-05-21 15:45 | MHC.AMDMED ---
Intake Intake Visit Reasons: DM/LVM Napkin Band Wrapper Required: Yes Accompanied by: Self / Same As Patient Allergies acetaminophen [From Percocet] Allergy (Severe, Verified 05/03/24 15:23) Anaphylaxis oxycodone [From Percocet] Allergy (Severe, Verified 05/03/24 15:23) Anaphylaxis Vicodin Allergy (Unknown, Uncoded 05/03/24 15:23) Anaphylaxis HPI Comprehensive Diabetes Asmnt Most Recent Diabetes Results: No Data to Display [facility] Medical History Right groin pain Arthritis Elevated LFTs Fibromyalgia Bunion, left foot Migraine Asthma Seasonal allergies Mood disorder Joint pain Hyperlipidemia LDL goal <100 Type 2 diabetes mellitus with polyneuropathy Type 2 diabetes mellitus with hyperglycemia Surgical History Hx of colonoscopy (~2019) Hx of cholecystectomy Hx of foot surgery History of bilateral carpal tunnel release Hx of cataract surgery Family History Father Hypertension Mother Diabetes Colon cancer Brother Liver cancer Social History Household Members: Other Household Members Other:: Sister Alcohol intake: current Alcohol intake frequency: does not drink Patient Tobacco Use Status: Never used Tobacco Assessment & Plan Assessment & Plan (1) Type 2 diabetes mellitus with hyperglycemia: Code(s): E11.65 - Type 2 diabetes mellitus with hyperglycemia Qualifiers: Diabetes mellitus 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 The following topics were reviewed today: At today's visit we reconnected patient's insulin pump to her [employer] chad. and updated her pump. iLet id:[email or web address] -Pump therapy basic concepts: Basal/bolus -Always dose 15 minutes prior to meals - Off pump backup insulin plan Instructed patient to only use room temperature insulin, how to load cartridge or fill pod, with insulin. Fill tubing and cannula (if applicable) Troubleshooting after starting new pod or inserting new insulin set: Occlusion, adhesive tape sensitivity, redness Check BG 2 hours after site change Reviewed Safety information: Importance of a backup plan, for manual injections, proper prescriptions and emergency supplies ketone strips, and rules for testing for ketones Patient understands the basic concepts of pump therapy, how to give insulin for meals and snacks, how to troubleshoot for hyper and hypoglycemia. Patient will follow up with [facility] as instructed Patient will contact [facility] with questions or concerns, patient given IT number to support in any technical issues related to insulin pump Portions of this note were created using voice recognition software, please excuse any words or phrases that may have been misinterpreted. Patient Instructions: follow up in 2 weeks Coding Level of Care Code Est Pt Level 1 (20418) Diagnoses Type 2 diabetes mellitus with hyperglycemia, with long-term current use of insulin E11.65; Z79.4 Diabetes mellitus longterm insulin use: with longterm use
== END 2024-05-21 15:51 | disposition home or self-care (01) ==
PROVIDERS: PCP Pediatrics; Visit Provider Registered Nurse Diabetes Educator
DX: E11.65 Type 2 diabetes mellitus with hyperglycemia (principal); Z79.4 Long term (current) use of insulin

== ENCOUNTER → 2024-05-21 14:47 | Outpatient (BNVA) | payer OTHER, MEDICAID, SELFPAY | PROVIDERS: PCP Pediatrics; Visit Provider Registered Nurse Diabetes Educator | DX: Z46.81 Encounter for fitting and adjustment of insulin pump (principal); E11.65 Type 2 diabetes mellitus with hyperglycemia; Z79.4 Long term (current) use of insulin | CPT/HCPCS: 99211 ==

== ENCOUNTER 2024-06-04 15:02 | Outpatient (AMB) | payer OTHER, MEDICAID, SELFPAY ==
--- NOTE | 2024-06-04 15:56 | A.OFFVIS_ITS ---
Intake Intake Visit Reasons: 60 min-lvm Accompanied by: Self / Same As Patient Allergies acetaminophen [From Percocet] Allergy (Severe, Verified 05/03/24 15:23) Anaphylaxis oxycodone [From Percocet] Allergy (Severe, Verified 05/03/24 15:23) Anaphylaxis Vicodin Allergy (Unknown, Uncoded 05/03/24 15:23) Anaphylaxis HPI Comprehensive Diabetes Asmnt Most Recent Diabetes Results: No Data to Display [facility] Medical History Right groin pain Arthritis Elevated LFTs Fibromyalgia Bunion, left foot Migraine Asthma Seasonal allergies Mood disorder Joint pain Hyperlipidemia LDL goal <100 Type 2 diabetes mellitus with polyneuropathy Type 2 diabetes mellitus with hyperglycemia Surgical History Hx of colonoscopy (~2019) Hx of cholecystectomy Hx of foot surgery History of bilateral carpal tunnel release Hx of cataract surgery Family History Father Hypertension Mother Diabetes Colon cancer Brother Liver cancer Social History Household Members: Other Household Members Other:: Sister Alcohol intake: current Alcohol intake frequency: does not drink Patient Tobacco Use Status: Never used Tobacco Assessment & Plan Assessment & Plan (1) Type 2 diabetes mellitus with hyperglycemia: Code(s): E11.65 - Type 2 diabetes mellitus with hyperglycemia Qualifiers: 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 The following topics were reviewed today: -Pump therapy basic concepts: Basal/bolus -Always dose 15 minutes prior to meals - Off pump backup insulin plan iLet Alerts: ??? High Alert: 300 mg/dl ??? Low Alert: 75 mg/dl CGM: Above target:25.1% At target:56.6% Below target:7.7% Patient's average glucose for the past 14 days 165 mg/dL TDD:56.5 Basal:24.6 Patient is having significant amount of hypoglycemia. Patient reports that she has been feeling sick and she has not been eating. Then when glucose goes low she patient drinks fruit juice or eats candy to bring glucose backup. At today's visit she reports drinking approximately 8 oz of orange juice last time she experienced low blood Explained to patient the importance of not over treating when using the iLet, because the pump significantly reduces or stops insulin before glucose drops below 70 mg/dL, if you over treat glucose level will rebound which will cause insulin pump to administer more correction insulin. Patient is also not announcing meals consistently, reports eating 2 pieces of bread with coffee for bread, but has not been announcing as usual meal. Instructed patient that when she eats a meal, to select usual meal for what she would eat consistently. Only use more than usual if it is 50% more carbs than you would normally eat. Example given to patient if she eats 3 pieces of bread that would be considered more than usual, if she eats 1 piece of bread that would be considered less than usual. Patient agreed to plan. Patient will be seeing nurse practitioner on 06/13/2024, patient will follow-up with music educator in 1 month Instructed patient to only use room temperature insulin, how to load cartridge or fill pod, with insulin. Fill tubing and cannula (if applicable) Troubleshooting after starting new pod or inserting new insulin set: Occlusion, adhesive tape sensitivity, redness Check BG 2 hours after site change Reviewed Safety information: Importance of a backup plan, for manual injections, proper prescriptions and emergency supplies ketone strips, and rules for testing for ketones Patient understands the basic concepts of pump therapy, how to give insulin for meals and snacks, how to troubleshoot for hyper and hypoglycemia. Patient will follow up with [facility] as instructed Patient will contact [facility] with questions or concerns, patient given IT number to support in any technical issues related to insulin pump Portions of this note were created using voice recognition software, please excuse any words or phrases that may have been misinterpreted. 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
== END 2024-06-04 16:01 | disposition home or self-care (01) ==
PROVIDERS: PCP Pediatrics; Visit Provider Registered Nurse Diabetes Educator
DX: E11.65 Type 2 diabetes mellitus with hyperglycemia (principal); Z79.4 Long term (current) use of insulin

== ENCOUNTER → 2024-06-04 15:02 | Outpatient (BNVA) | payer OTHER, MEDICAID, SELFPAY | PROVIDERS: PCP Pediatrics; Visit Provider Registered Nurse Diabetes Educator | DX: Z46.81 Encounter for fitting and adjustment of insulin pump (principal); E11.65 Type 2 diabetes mellitus with hyperglycemia | CPT/HCPCS: 99211 ==

== ENCOUNTER 2024-06-25 14:49 | Outpatient (AMB) | payer OTHER, MEDICAID, SELFPAY ==
--- NOTE | 2024-06-25 09:14 | A.OFFVIS_ITS ---
Vital Signs 06/25/24 14:52 Height 5 ft 5 in Weight 160 lb 14.999 oz BMI 26.8 BP 120/74 Blood Pressure Location Rt brachial Position Sitting Pulse 74 Pulse Source Pulse Oximeter Intake Visit Reasons: DM/LVM Intake Note: Patient presents today to establish treatment for Type 1 Diabetes Mellitus: Last Diabetic eye exam was on: DUE Last Podiatry exam was on: Does not see a Explosives Worker Most recent HbA1c: 11.0%, 04/11/2024 Random Glucose: 151 mg/dL, Today Supervisor Maple Products Required: Yes Supervisor Maple Products Language: Lehr Operator Services: Supervisor Maple Products Present Supervisor Maple Products Name: YUSUF Linares/NEO Zuniga Information Interpreted: non-clinical & clinical Accompanied by: Self / Same As Patient Allergies acetaminophen [From Percocet] Allergy (Severe, Verified 06/25/24 14:52) Anaphylaxis oxycodone [From Percocet] Allergy (Severe, Verified 06/25/24 14:52) Anaphylaxis Vicodin Allergy (Unknown, Uncoded 06/25/24 14:52) Anaphylaxis HPI Comments Details: Patient is a 53 yo female with DM type 2 diagnosed approximately 2017 for management of her diabetes. She was last seen by myself 05/03/24 and by Kelly BELL 06/04/2024. She is on an islet insulin pump. Hemoglobin A1c 04/11/2024 11%. She reports she has an infection on her arm where the sensor was and previously on the abdomen which has resolved. Current diabetes regime: ilet insulin pump with Fiasp Pioglitozone 30 mg Back up insulin pump failure plan: Lantus 70 unit meal coverage Fiasp 8-10 units Dexcom average glucose: 203 14 day continuous glucose monitor report reviewed Days with CGM data 92 I % TIme in ranges: 27 % very high (above 250) 30.5 % high ?(181-250) 37.9 % in range ?(70-180] 0.5 % low (69-55) 3.8 % ?very low (below 54) 83.5 Standard Deviation Interpretation [patient is announcing just 0.2 meals per day and consequently is having postprandial elevations after breakfast and lunch. 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 ] Total daily dose of insulin 105.1 Basal 35.4 Usual breakfast 4.6 usual lunch 8.1 he has we will dinner 6.4 Denies retinopathy. Last exam: she has been referred but missed appt to [facility] [address]. [place] Has neuropathy: Symptoms: + numbness, tingling and cramping in legs No Nephropathy:09/2023 microalbumin 8.0 eGFR>60 Has stong family hx of Type 2 DM Exercise - walks PFSH Medical History (Updated 06/25/24 @ 15:40 by Jeannie Roa NP) Cellulitis Right groin pain Arthritis Elevated LFTs Fibromyalgia Bunion, left foot Migraine Asthma Seasonal allergies Mood disorder Joint pain Hyperlipidemia LDL goal <100 Type 2 diabetes mellitus with polyneuropathy Type 2 diabetes mellitus with hyperglycemia Surgical History Hx of colonoscopy (~2019) Hx of cholecystectomy Hx of foot surgery History of bilateral carpal tunnel release Hx of cataract surgery Family History Father Hypertension Mother Diabetes Colon cancer Brother Liver cancer Social History Household Members: Other Household Members Other:: Sister Alcohol intake: current Alcohol intake frequency: does not drink Patient Tobacco Use Status: Never used Tobacco Physical Exam Vital Signs: Last Vital Signs Pulse 74 06/25/24 14:52 BP 120/74 06/25/24 14:52 BMI result Body Mass Index 26.8 Const Other: Absence of Cushingoid features. Absence of acromegalic features. Neck exam reveals thyroid nodule left side. No carotid bruits present. Lungs CTA. Heart S1 S2, Reg R/R. No M/R G. Skin exam reveals absence of vitiligo or acanthosis nigricans. right arm 3cm area reddened and warm, no purulence.No edema Visual exam of foot performed. No ulcerations or open lesions. No inter digit maceration or fissuring. No onychomycosis, no callouses. Sensation intact to monofilament exam. Vibratory sensation is normal with 128 Hz tuning fork. 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 Numbers are improving latest download shows an average of 200. She is not announcing meals to the islet pump and she was advised to consistently do this. (2) Cellulitis: Code(s): L03.90 - Cellulitis, unspecified Category: Medical Plan: Minimal right arm antibiotic prescribed. Patient advised to contact clinic if no improvement. She was advised to thoroughly wash hands before sensor and pump placement and to use alcohol for prep Medications: New sulfamethoxazole-trimethoprim 800-160 mg (Bactrim DS) 1 tab PO Q12H 10 days 20 tabs 0RF L03.90 - Cellulitis, unspecified lancets prn q 4 hours for pump failure for use with free style 100 ea 1RF E11.65 - Type 2 diabetes mellitus with hyperglycemia, Z79.4 - penitentiary (current) use of insulin lancets prn q 4 hours for pump failure for use with one touch meter 100 ea 1RF E11.65 - Type 2 diabetes mellitus with hyperglycemia, Z79.4 - penitentiary (current) use of insulin blood sugar diagnostic (OneTouch Ultra Test strips) P.r.n. sensor failure every 4 hours 100 ea 4RF blood-glucose meter As directed for use with sensor failure 1 ea 1RF Changed From insulin glargine (Lantus Solostar U-100 Insulin) 70 units (0.7 mL) subcut QPM 45 mL 4RF E11.65 - Type 2 diabetes mellitus with hyperglycemia, Z79.4 - terminal press operator (current) use of insulin To insulin glargine (Lantus Solostar U-100 Insulin) 70 units (0.7 mL) subcut DAILY 30 days PRN 15 mL 4RF pump failure once daily while off pump E11.65 - Type 2 diabetes mellitus with hyperglycemia, Z79.4 - penitentiary (current) use of insulin From acetone (urine) test (Ketostix strips) As directed 50 ea 4RF To acetone (urine) test (Ketostix strips) tid prn nausea, vomiting,illness, glucose over 250 50 ea 4RF Refilled insulin glargine (Lantus Solostar U-100 Insulin) 70 units (0.7 mL) subcut DAILY 30 days PRN 15 mL 4RF pump failure once daily while off pump E11.65 - Type 2 diabetes mellitus with hyperglycemia, Z79.4 - terminal press operator (current) use of insulin Patient Instructions: The patient was counseled to achieve a target A1C of 7% (154 avg). Fasting blood sugars should be 90-130 in the morning and less than 180 two hours after meals. Reviewed the relationship between poor diabetic control and the development of complications. Troubleshooting after starting new pod or inserting new insulin set: Occlusion, adhesive tape sensitivity, redness Check BG 2 hours after site change Safety information: Importance of a backup plan, for manual injections, proper prescriptions and emergency supplies ketone strips, and rules for testing for ketones Coding Level of Care Code Est Pt Level 3 (03252) Complex EM visit Add On G2211 Diagnoses Type 2 diabetes mellitus with hyperglycemia, with long-term current use of insulin E11.65; Z79.4 Diabetes mellitus exterminator helper insulin use: with shelter use Cellulitis L03.90 Time Spent (min) 20 Comment Time spent reviewing labs/provider notes, face to face, chart doc
[2024-06-25 14:52] VITALS: BP 120/74; PULSE 74; BMI 26.8
[2024-06-25 15:02] LABS: Glucose, Whole Blood 151 mg/dL (60-115)
== END 2024-06-25 15:35 | disposition home or self-care (01) ==
PROVIDERS: PCP Pediatrics; Visit Provider Nurse Practitioner Adult Health
DX: E11.65 Type 2 diabetes mellitus with hyperglycemia (principal); Z79.4 Long term (current) use of insulin; L03.90 Cellulitis, unspecified
CPT/HCPCS: 99213; G2211

== ENCOUNTER → 2024-06-25 14:49 | Outpatient (BNVA) | payer MEDICARE, MEDICAID, SELFPAY | PROVIDERS: PCP Pediatrics; Visit Provider Nurse Practitioner Adult Health | DX: E11.65 Type 2 diabetes mellitus with hyperglycemia (principal); L03.113 Cellulitis of right upper limb; Z79.4 Long term (current) use of insulin | CPT/HCPCS: 82947 ==

== ENCOUNTER 2024-07-09 14:28 | Outpatient (AMB) | payer OTHER, MEDICAID, SELFPAY ==
--- NOTE | 2024-07-09 14:38 | MHC.AMDMED ---
Intake Vital Signs 07/09/24 14:38 Weight 165 lb 2 oz Intake Visit Reasons: DM Athlete Manager Required: Yes Athlete Manager Services: Athlete Manager Offered & Declined Accompanied by: Self / Same As Patient Allergies acetaminophen [From Percocet] Allergy (Severe, Verified 06/25/24 14:52) Anaphylaxis oxycodone [From Percocet] Allergy (Severe, Verified 06/25/24 14:52) Anaphylaxis Vicodin Allergy (Unknown, Uncoded 06/25/24 14:52) Anaphylaxis HPI Comprehensive Diabetes Asmnt Most Recent Diabetes Results: Microalb/Creat Ratio 12.6 ug/mg cr (<30) 09/06/23 Cholesterol 211 mg/dL (<200) H 09/06/23 HDL Cholesterol 57 mg/dL (>40) 09/06/23 Triglycerides 220 mg/dL (<150) H 09/06/23 Creatinine 0.67 mg/dL (0.5-1.4) 09/06/23 Blood Urea Nitrogen 18 mg/dL (9-16) H 09/06/23 Sodium 139 mmol/L (135-145) 09/06/23 Potassium 4.4 mmol/L (3.3-5.1) 09/06/23 Chloride 105 mmol/L (96-108) 09/06/23 Carbon Dioxide 28 mmol/L (22-29) 09/06/23 Calcium 9.6 mg/dL (8.4-10.2) 09/06/23 AST 27 U/L (5-31) 03/04/21 ALT 39 U/L (0-31) H 03/04/21 Total Protein 8.3 g/dL (6.5-8.0) H 03/04/21 Albumin 4.4 g/dL (3.5-5.0) 03/04/21 [facility] Medical History (Updated 06/25/24 @ 15:40 by Jeannie oRa NP) Cellulitis Right groin pain Arthritis Elevated LFTs Fibromyalgia Bunion, left foot Migraine Asthma Seasonal allergies Mood disorder Joint pain Hyperlipidemia LDL goal <100 Type 2 diabetes mellitus with polyneuropathy Type 2 diabetes mellitus with hyperglycemia Surgical History Hx of colonoscopy (~2019) Hx of cholecystectomy Hx of foot surgery History of bilateral carpal tunnel release Hx of cataract surgery Family History Father Hypertension Mother Diabetes Colon cancer Brother Liver cancer Social History Household Members: Other Household Members Other:: Sister Alcohol intake: current Alcohol intake frequency: does not drink Patient Tobacco Use Status: Never used Tobacco Assessment & Plan Assessment & Plan (1) Type 2 diabetes mellitus with hyperglycemia: Code(s): E11.65 - Type 2 diabetes mellitus with hyperglycemia Qualifiers: Diabetes mellitus prison insulin use: with prison use Qualified Code(s): E11.65 - Type 2 diabetes mellitus with hyperglycemia; Z79.4 - [facility] (current) use of insulin Plan: Patient presents for pump training for iLet pump and CGM training today. The following topics were reviewed today: -Pump therapy basic concepts: Basal/bolus -importance of announcing meals -recommended changing insulin delivery set every 48 hours instead of every 72 hours, to see if that helps with irritation iLet Alerts: ??? High Alert: 300 mg/dl ??? Low Alert: 75 mg/dl CGM: Above target:40.1% At target:59.1% Below target:0.1% Patient's average glucose for the past 14 days 175 mg/dL TDD:71.7 Basal:37.8 Patient is having fewer hypoglycemic events, patient will be due for A1c at next visit with JET ENGINE MECHANIC on 07/16/2024 Patient has not been announcing her meals into pump Discussed with patient the importance of announcing meals, for optimal glucose control, patient agreed she will try to announce meals Also discussed with patient if she is going to be physically active, and concerned about hypoglycemia she can pause insulin pump. Recommended she start with pausing pump for 30 minutes, if she is still going low after physical activity she can extend it to 60 minutes. Patient given number to [facility] to order new sensors and pump supplies, patient given sample infusion sets so she can change infusion set more frequently in order to see if this helps with irritation and infection Instructed patient to only use room temperature insulin, how to load cartridge or fill pod, with insulin. Fill tubing and cannula (if applicable) Troubleshooting after starting new pod or inserting new insulin set: Occlusion, adhesive tape sensitivity, redness Check BG 2 hours after site change Patient understands the basic concepts of pump therapy, how to give insulin for meals and snacks, how to troubleshoot for hyper and hypoglycemia. Patient will follow up with [facility] as instructed Patient will contact [facility] with questions or concerns, patient given IT number to support in any technical issues related to insulin pump Portions of this note were created using voice recognition software, please excuse any words or phrases that may have been misinterpreted. Patient Instructions: Patient will follow-up with clinical systems educator in 2 months Coding Level of Care Code Est Pt Level 1 (13397) Diagnoses Type 2 diabetes mellitus with hyperglycemia, with long-term current use of insulin E11.65; Z79.4 Diabetes mellitus intermediate manager insulin use: with prison use
== END 2024-07-09 14:49 | disposition home or self-care (01) ==
LOC: HO.ENCR 14:29
PROVIDERS: PCP Pediatrics; Visit Provider Registered Nurse Diabetes Educator
DX: E11.65 Type 2 diabetes mellitus with hyperglycemia (principal); Z79.4 Long term (current) use of insulin

== ENCOUNTER → 2024-07-09 14:28 | Outpatient (BNVA) | payer OTHER, MEDICAID, SELFPAY | PROVIDERS: PCP Pediatrics; Visit Provider Registered Nurse Diabetes Educator | DX: Z46.81 Encounter for fitting and adjustment of insulin pump (principal); E11.65 Type 2 diabetes mellitus with hyperglycemia | CPT/HCPCS: 99211 ==

== ENCOUNTER 2024-07-16 15:33 | Outpatient (AMB) | payer OTHER, MEDICAID, SELFPAY ==
--- NOTE | 2024-07-16 07:59 | A.OFFVIS_ITS ---
Vital Signs 07/16/24 15:38 Height 5 ft 5 in Weight 163 lb 2.273 oz BMI 27.1 BP 130/78 Blood Pressure Location Rt brachial Position Sitting Pulse 75 Pulse Source Pulse Oximeter Intake Visit Reasons: DM Intake Note: Patient presents today to establish treatment for Type 1 Diabetes Mellitus: Last Diabetic eye exam was on: DUE Last Podiatry exam was on: Does not see a Quarantine Inspector Most recent HbA1c: 8.4%, 07/16/2024 Random Glucose: 72 mg/dL, Today, RE-CHECK 102 mg/dL Muleser Required: Yes Muleser Language: Beam Saw Operator Services: Muleser Present Information Interpreted: non-clinical & clinical Accompanied by: Self / Same As Patient Allergies acetaminophen [From Percocet] Allergy (Severe, Verified 07/16/24 15:38) Anaphylaxis oxycodone [From Percocet] Allergy (Severe, Verified 07/16/24 15:38) Anaphylaxis Vicodin Allergy (Unknown, Uncoded 07/16/24 15:38) Anaphylaxis HPI Comments Details: Patient is a 53 yo female with DM type 2 diagnosed approximately 2017 for management of her diabetes. She was last seen by myself 06/25/24 at which time she had a mild cellulitis on her arm at the site of her dexcom sensor. She has had several other infected pump insertion sites and has been treated with antibiotics. She had been taken off the ilet pump and advised to go to the emergency room on 07/12/2024 when she called stating she had pus near her pump site on her abdomen.She did not go to the ER and continued pump therapy at a different site. Hemoglobin A1c 07/16/24 %, 04/11/2024 11%. Current diabetes regime: Recommended to come off pump today. Pioglitozone 30 mg Fiasp breakfast 4 units lunch 6 units supper 8 units Lantus 38 units once daily meal coverage Fiasp 8-10 units prior dosing on insulin Dexcom average glucose: 383 14 day continuous glucose monitor report reviewed TIme in ranges: One hundred % high Standard Deviation Interpretation readings running high throughout the 24 hour. Denies retinopathy. Last exam: she has been referred but missed appt to [facility] Dr. Urbina has scheduled an appt for this week with opth Has neuropathy: Symptoms: + numbness, tingling and cramping in legs No Nephropathy:09/2023 microalbumin 8.0 eGFR>60 on low dose radha-1 Has HLD on statin 09/06/23 110 Has stong family hx of Type 2 DM Exercise - walks [facility] Medical History (Updated 06/25/24 @ 15:40 by Jeannie Roa NP) Cellulitis Right groin pain Arthritis Elevated LFTs Fibromyalgia Bunion, left foot Migraine Asthma Seasonal allergies Mood disorder Joint pain Hyperlipidemia LDL goal <100 Type 2 diabetes mellitus with polyneuropathy Type 2 diabetes mellitus with hyperglycemia Surgical History Hx of colonoscopy (~2018) Hx of cholecystectomy Hx of foot surgery History of bilateral carpal tunnel release Hx of cataract surgery Family History Father Hypertension Mother Diabetes Colon cancer Brother Liver cancer Social History Household Members: Other Household Members Other:: Sister Alcohol intake: current Alcohol intake frequency: does not drink Patient Tobacco Use Status: Never used Tobacco Physical Exam Vital Signs: Last Vital Signs Pulse 75 07/16/24 15:38 BP 130/78 07/16/24 15:38 BMI result Body Mass Index 27.1 Const Other: Absence of Cushingoid features. Absence of acromegalic features. nodules palpable. . Heart S1 S2, Reg R/R. No M/R G. Skin exam reveals absence of vitiligo or acanthosis nigricans. Left side of abdomen indurated 3 in x 2 in firm no fluctuance No edema Visual exam of foot performed. Right great toe tender without erythema Results AMB Hemoglobin A1c AMB Hemoglobin A1c 8.4 % Last Edit by YUSUF Linares on 07/16/24 16:17 Results Reviewed Results Reviewed: Laboratory Last Values Glucose (Clinic) 102 mg/dL (60-115) 07/16/24 16:02 Hgb A1c (Clinic) 8.4 % (4.0-6.0) H 07/16/24 16:16 Assessment & Plan Assessment & Plan (1) Type 2 diabetes mellitus with hyperglycemia: Code(s): E11.65 - Type 2 diabetes mellitus with hyperglycemia Category: Medical Qualifiers: Diabetes mellitus senior living insulin use: with superintendent terminal use Qualified Code(s): E11.65 - Type 2 diabetes mellitus with hyperglycemia; Z79.4 - prison (current) use of insulin Plan: 53-year-old type 2 diabetic with neuropathy and longstanding history of poorly controlled diabetes who was recently advised to come off an islet pump due to multiple infections at the insertion site and sensor site and referred to the ER which she failed to do. Today she presents with the an induration on the right side of the abdomen and a functioning pump. She was advised to go to [facility] Emergency room and eye contact to triage with the recommendation that a CT scan be done, I and D of the abscess, patient should come off pump in a nasal swab should be done to rule out MRSA. She was counseled under no uncertain terms is she is to restart this pump for the least 6 months. I advised her that failure to follow recommendations could lead to a prolonged ICU stay or . I have contacted her pump supplier next week and advised them to not send any pump supplies The patient had an opportunity to ask questions regarding treatment plan. The patient expressed understanding and agreement with the above treatment plan. The patient is aware they should contact our office by phone for worsening glucose readings or for any low blood sugars which may warrant a change in diabetes medication. Compliance is encouraged with medications and any followup testing/consults which may have been ordered. The patient had an opportunity to ask questions regarding treatment plan. The patient expressed understanding and agreement with the above treatment plan. The patient is aware they should contact our office by phone for worsening glucose readings or for any low blood sugars which may warrant a change in diabetes medication. Compliance is encouraged with medications and any followup testing/consults which may have been ordered. Orders: Orders AMB Hemoglobin A1c 07/16/24 E11.65 - Type 2 diabetes mellitus with hyperglycemia, Z79.4 - prison (current) use of insulin Patient Instructions: Coding Level of Care Code Est Pt Level 4 (33127) Complex EM visit Add On G2211 Diagnoses Type 2 diabetes mellitus with hyperglycemia, with long-term current use of insulin E11.65; Z79.4 Diabetes mellitus superintendent terminal insulin use: with senior living use Time Spent (min) 30 Comment Reviewing labs/provider notes, glucose sensor/pump reports, face to face, chart doc
[2024-07-16 15:38] VITALS: BP 130/78; PULSE 75; BMI 27.1
[2024-07-16 15:48] LABS: Glucose, Whole Blood 71 mg/dL (60-115)
[2024-07-16 16:09] LABS: Glucose, Whole Blood 102 mg/dL (60-115)
== END 2024-07-16 16:07 | disposition home or self-care (01) ==
PROVIDERS: PCP Pediatrics; Visit Provider Nurse Practitioner Adult Health
DX: E11.65 Type 2 diabetes mellitus with hyperglycemia (principal); Z79.4 Long term (current) use of insulin
CPT/HCPCS: 99214; G2211

== ENCOUNTER → 2024-07-16 15:33 | Outpatient (BNVA) | payer OTHER, MEDICAID, SELFPAY | PROVIDERS: PCP Pediatrics; Visit Provider Nurse Practitioner Adult Health | DX: E11.65 Type 2 diabetes mellitus with hyperglycemia (principal); E11.40 Type 2 diabetes mellitus with diabetic neuropathy, unspecified; Z79.4 Long term (current) use of insulin | CPT/HCPCS: 82947; 83036 ==

== ENCOUNTER 2024-07-30 15:24 | Outpatient (AMB) | payer OTHER, MEDICAID, SELFPAY ==
--- NOTE | 2024-07-30 15:39 | A.OFFVIS_ITS ---
Vital Signs 07/30/24 15:40 Height 5 ft 5 in Weight 165 lb 5.547 oz BMI 27.5 BP 122/68 Blood Pressure Location Rt brachial Position Sitting Pulse 91 Pulse Source Pulse Oximeter Intake Visit Reasons: f/u DM/LVM Intake Note: Patient presents today to establish treatment for Type 1 Diabetes Mellitus: Last Diabetic eye exam was on: DUE Last Podiatry exam was on: Does not see a Freight Brake Operator Most recent HbA1c: 8.4%, 07/16/2024 Random Glucose: 180 mg/dL, Today Trouble Locator Test Desk Required: Yes Trouble Locator Test Desk Language: Clerk Of Superior Court Services: Trouble Locator Test Desk Present Trouble Locator Test Desk Name: YUSUF Linares/NEO MCKEON Information Interpreted: non-clinical & clinical Accompanied by: Self / Same As Patient Allergies acetaminophen [From Percocet] Allergy (Severe, Verified 07/16/24 15:38) Anaphylaxis oxycodone [From Percocet] Allergy (Severe, Verified 07/16/24 15:38) Anaphylaxis Vicodin Allergy (Unknown, Uncoded 07/16/24 15:38) Anaphylaxis [facility] Medical History (Updated 06/25/24 @ 15:40 by Jeannie Roa NP) Cellulitis Right groin pain Arthritis Elevated LFTs Fibromyalgia Bunion, left foot Migraine Asthma Seasonal allergies Mood disorder Joint pain Hyperlipidemia LDL goal <100 Type 2 diabetes mellitus with polyneuropathy Type 2 diabetes mellitus with hyperglycemia Surgical History Hx of colonoscopy (~2019) Hx of cholecystectomy Hx of foot surgery History of bilateral carpal tunnel release Hx of cataract surgery Family History Father Hypertension Mother Diabetes Colon cancer Brother Liver cancer Social History Household Members: Other Household Members Other:: Sister Alcohol intake: current Alcohol intake frequency: does not drink Patient Tobacco Use Status: Never used Tobacco Physical Exam Vital Signs: Last Vital Signs Pulse 91 07/30/24 15:40 BP 122/68 07/30/24 15:40 BMI result Body Mass Index 27.5 Results Reviewed Results Reviewed: Laboratory Last Values Glucose (Clinic) 180 mg/dL (60-115) H 07/30/24 15:43 Assessment & Plan Assessment & Plan (1) Type 2 diabetes mellitus with hyperglycemia: Code(s): E11.65 - Type 2 diabetes mellitus with hyperglycemia Category: Medical Qualifiers: Diabetes mellitus prison insulin use: with prison use Qualified Code(s): E11.65 - Type 2 diabetes mellitus with hyperglycemia; Z79.4 - shelter (current) use of insulin Plan: Type 2 diabetic with poorly controlled glucose. We will keep her off pump as she has had multiple infections. She should have a nasal swab done through her PCP to determine if she may be colonized with staph. Lantus 46 I Humalog for for breakfast 6 for lunch 8 for supper with a sliding scale coverage 151-202 units 201-254 units 26730 units over 308 units pioglitazone 30 mg Patient Instructions: The patient was counseled to always carry a source of sugar and on the rule of 15's: Take 3 glucose tablets and repeat again in 15 minutes if blood sugar is not in normal range. Continue to repeat every 15 minutes until blood sugar is normal. The patient was counseled to achieve a target A1C of 7% (154 avg). Fasting blood sugars should be 90-130 in the morning and less than 180 two hours after meals. Reviewed the relationship between poor diabetic control and the development of complications. Coding Level of Care Code Est Pt Level 4 (31294) Complex EM visit Add On G2211 Diagnoses Type 2 diabetes mellitus with hyperglycemia, with long-term current use of insulin E11.65; Z79.4 Diabetes mellitus prison insulin use: with adjunct faculty for medical terminology use Time Spent (min) 30 Comment Time spent reviewing labs/provider notes, face to face, chart doc
[2024-07-30 15:40] VITALS: BP 122/68; PULSE 91; BMI 27.5
[2024-07-30 15:50] LABS: Glucose, Whole Blood 180 mg/dL (60-115)
== END 2024-07-30 16:13 | disposition home or self-care (01) ==
PROVIDERS: PCP Pediatrics; Visit Provider Nurse Practitioner Adult Health
DX: E11.65 Type 2 diabetes mellitus with hyperglycemia (principal); Z79.4 Long term (current) use of insulin
CPT/HCPCS: 99214; G2211

== ENCOUNTER → 2024-07-30 15:24 | Outpatient (BNVA) | payer MEDICARE, MEDICAID, SELFPAY | PROVIDERS: PCP Pediatrics; Visit Provider Nurse Practitioner Adult Health | DX: E11.65 Type 2 diabetes mellitus with hyperglycemia (principal); Z79.4 Long term (current) use of insulin | CPT/HCPCS: 82947 ==

== ENCOUNTER 2024-08-19 13:26 | Outpatient (AMB) | payer OTHER, MEDICAID, SELFPAY ==
--- NOTE | 2024-08-19 13:46 | MHC.AMDMED ---
Intake Intake Visit Reasons: DM Craps Manager Required: No Accompanied by: Self / Same As Patient Allergies acetaminophen [From Percocet] Allergy (Severe, Verified 07/16/24 15:38) Anaphylaxis oxycodone [From Percocet] Allergy (Severe, Verified 07/16/24 15:38) Anaphylaxis Vicodin Allergy (Unknown, Uncoded 07/16/24 15:38) Anaphylaxis HPI Comprehensive Diabetes Asmnt Most Recent Diabetes Results: Microalb/Creat Ratio 12.6 ug/mg cr (<30) 09/06/23 Cholesterol 211 mg/dL (<200) H 09/06/23 HDL Cholesterol 57 mg/dL (>40) 09/06/23 Triglycerides 220 mg/dL (<150) H 09/06/23 Creatinine 0.67 mg/dL (0.5-1.4) 09/06/23 Blood Urea Nitrogen 18 mg/dL (9-16) H 09/06/23 Sodium 139 mmol/L (135-145) 09/06/23 Potassium 4.4 mmol/L (3.3-5.1) 09/06/23 Chloride 105 mmol/L (96-108) 09/06/23 Carbon Dioxide 28 mmol/L (22-29) 09/06/23 Calcium 9.6 mg/dL (8.4-10.2) 09/06/23 AST 27 U/L (5-31) 03/04/21 ALT 39 U/L (0-31) H 03/04/21 Total Protein 8.3 g/dL (6.5-8.0) H 03/04/21 Albumin 4.4 g/dL (3.5-5.0) 03/04/21 [facility] Medical History (Updated 06/25/24 @ 15:40 by Jeannie Roa NP) Cellulitis Right groin pain Arthritis Elevated LFTs Fibromyalgia Bunion, left foot Migraine Asthma Seasonal allergies Mood disorder Joint pain Hyperlipidemia LDL goal <100 Type 2 diabetes mellitus with polyneuropathy Type 2 diabetes mellitus with hyperglycemia Surgical History Hx of colonoscopy (~2019) Hx of cholecystectomy Hx of foot surgery History of bilateral carpal tunnel release Hx of cataract surgery Family History Father Hypertension Mother Diabetes Colon cancer Brother Liver cancer Social History Household Members: Other Household Members Other:: Sister Alcohol intake: current Alcohol intake frequency: does not drink Patient Tobacco Use Status: Never used Tobacco Assessment & Plan Assessment & Plan (1) Type 2 diabetes mellitus with hyperglycemia: Code(s): E11.65 - Type 2 diabetes mellitus with hyperglycemia Qualifiers: Diabetes mellitus detention insulin use: with detention use Qualified Code(s): E11.65 - Type 2 diabetes mellitus with hyperglycemia; Z79.4 - local company intermodal 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 0% Hyperglycemia:? 89% Time in Range:? 11% Average glucose for the last 2 weeks?257 mg/dL Patient's last A1c in 07/24/2024 8.4%, down from 11% in 04/23/2024. Patient is still off insulin pump due to infection at infusion site. At today's visit patient stated she misses using the insulin pump, Associate Professor Of Philosophy noted that patient should stay off insulin pump for 6 months after being treated for infusion site infection. Discussed with patient if she and Associate Professor Of Philosophy decide to reinstate insulin pump therapy we could try using the inset instead of the contact detach infusion set, to see if she has a similar reaction to Sven cannula as opposed to steal needle. At today's visit we discussed increasing Humalog from 8-10 units at 1st meal of the day, and for 2nd meal from 14 units to 16 units Also increasing Lantus from 38 units to 44 units Reviewed how to interpret trend arrows Reminded patient that to check finger sticks if symptoms do not match sensor reading. Discussed lag time between finger stick and sensor data.? Patient able to insert sensor independently at home without issue.? Portions of this note were created using voice recognition software, please excuse any words or phrases that may have been misinterpreted. Patient Instructions: Increase Lantus 38 units to 42 units Humalog 10 units for 1st meal 16 units for the 2nd meals follow up with me in 2 months Coding Level of Care Code Est Pt Level 1 (51227) Diagnoses Type 2 diabetes mellitus with hyperglycemia, with long-term current use of insulin E11.65; Z79.4 Diabetes mellitus lobsterman insulin use: with lobsterman use
== END 2024-08-19 14:08 | disposition home or self-care (01) ==
PROVIDERS: PCP Pediatrics; Visit Provider Registered Nurse Diabetes Educator
DX: E11.65 Type 2 diabetes mellitus with hyperglycemia (principal); Z79.4 Long term (current) use of insulin

== ENCOUNTER 2024-09-05 17:40 | Outpatient (REF) | payer OTHER, MEDICAID, SELFPAY ==
[2024-09-06 14:58] LABS: MRSA Nasal PCR NEGATIVE (Negative); SA Nasal PCR POSITIVE (Negative)
== END 2024-09-05 17:41 | disposition home or self-care (01) ==
LOC: HO.CHCLNP 17:40
PROVIDERS: Visit Provider Pediatrics
DX: L02.92 Furuncle, unspecified (principal)
CPT/HCPCS: 87640; 87641

== ENCOUNTER 2024-09-25 14:55 | Outpatient (AMB) | payer OTHER, MEDICAID, SELFPAY ==
--- NOTE | 2024-09-25 14:57 | A.OFFVIS_ITS ---
Vital Signs 09/25/24 14:59 Height 5 ft 5 in Weight 156 lb 8.451 oz BMI 26.0 BP 112/72 Blood Pressure Location Rt brachial Position Sitting Pulse 73 Pulse Source Pulse Oximeter Intake Visit Reasons: DM Intake Note: Patient presents today for a follow-up on Type 1 Diabetes Mellitus: Last Diabetic eye exam was on: DUE Last Podiatry exam was on: Does not see a Internet Database Specialist Most recent HbA1c: 8.4%, 07/16/2024 Random Glucose: 426 mg/dL, Today Ur Ketones (Stick): 15 Primary Therapist Required: Yes Primary Therapist Language: Director Of Teenage Activities Services: Primary Therapist Present Primary Therapist Name: YUSUF Linares/NEO MCKEON Information Interpreted: non-clinical & clinical Accompanied by: Self / Same As Patient Allergies acetaminophen [From Percocet] Allergy (Severe, Verified 09/25/24 15:37) Anaphylaxis oxycodone [From Percocet] Allergy (Severe, Verified 09/25/24 15:37) Anaphylaxis Vicodin Allergy (Unknown, Uncoded 09/25/24 15:37) Anaphylaxis Medication List - Last Reconciled 09/25/24 by Jeannie Roa NP acetone (urine) test (Ketostix strips) tid prn nausea, vomiting,illness, glucose over 250 albuterol sulfate 90 mcg/actuation inhalation alcohol swabs pad topical aripiprazole 5 mg PO DAILY blood sugar diagnostic As directed blood sugar diagnostic (OneTouch Ultra Test strips) P.r.n. sensor failure every 4 hours blood-glucose meter As directed for use with sensor failure clonidine HCl 0.1 mg PO BID gabapentin 300 mg PO BID glucose (Dex4 Glucose) 12 grams (3 x 4 gram) PO Q15M PRN hydroxyzine HCl 50 mg PO BEDTIME insulin aspart (B3) pump cart 100 unit/mL (1.6 mL) (Fiasp Pumpcart) Infuse up to 90 units per day via insulin pump subcutaneously; insulin aspart (niacinamide) 100 unit/mL (3 mL) (Fiasp FlexTouch U-100 Insulin) 4 units for breakfast 8 units for lunch 6 units for supper subcutaneously 3 times a day; 30 days insulin glargine (Lantus Solostar U-100 Insulin) 38 units (0.38 mL) subcut DAILY 30 days lancets prn q 4 hours for pump failure for use with one touch meter lisinopril 2.5 mg PO QAM loratadine 10 mg PO QAM multivitamin 1 tab PO DAILY naproxen 500 mg PO BID omega 4-ifh-dwf-fish oil 1,000 (120-180) mg (Fish Oil) 1 cap PO DAILY oxybutynin chloride ER 5 mg PO DAILY pen needle, diabetic As directed five times a day pen needle, diabetic (BD Ultra-Fine Tania Pen Needle) As directed qid pioglitazone 15 mg PO DAILY rosuvastatin 40 mg PO DAILY tramadol 50 mg PO Q6H PRN trazodone 100 mg PO BEDTIME venlafaxine ER 150 mg PO DAILY HPI Comments Details: 53-year-old female Type 2 diabetic diagnosed approximately 2016 previously on an insulin pump which was discontinued 07/30 after a previous cellulitis at her s ensor site and several infections at the pump insertion site. She was referred to the ER at [facility] for treatment and nasal swab to r/o nasal staph aureus as a cause for the multiple infections. She was treated with antibiotics at the ER but nasal swab was not done. At her last visit visit with provider in July it was recommended to stay off the pump and she was advised to have a nasal swab done through her PCP and was changed to basal/bolus insulin. She saw the hand expansion envelope maker 3 weeks later on 08/19/2024 and it was recommended that she increase her insulin. Glucose in the clinic today is 426 with 15 on ketone Current diabetes regime: Lantus 46 units daily Humalog 5 units if elevated and not eating 10 if eating a meal 14 units for supper if larger meal pioglitazone 30 mg Most recent A1c 07/24/24 8.4% down from previous A1c 04/23/2024 11%. She is using her Dexcom sensor but we are not able to download it in clinic togavin orourke. She reports her sugars have been running in the 300 range. At her last visit with the hand expansion envelope maker mid August they were running in the 245 range. She reports being thirsty, mildly nauseous and dry mouth. She also complains of vaginal itching. Denies retinopathy. Last exam: she has been referred but missed appt to [facility] Dr. Urbina She has rescheduled with another provider Has neuropathy: Symptoms: + numbness, tingling and cramping in legs No Nephropathy:09/2023 microalbumin 8.0 eGFR>60 on low dose radha-1 Has HLD on statin 09/06/23 110 Has stong family hx of Type 2 DM Exercise - walks . [facility] Medical History Cellulitis Right groin pain Arthritis Elevated LFTs Fibromyalgia Bunion, left foot Migraine Asthma Seasonal allergies Mood disorder Joint pain Hyperlipidemia LDL goal <100 Type 2 diabetes mellitus with polyneuropathy Type 2 diabetes mellitus with hyperglycemia Surgical History Hx of colonoscopy (~2018) Hx of cholecystectomy Hx of foot surgery History of bilateral carpal tunnel release Hx of cataract surgery Family History Father Hypertension Mother Diabetes Colon cancer Brother Liver cancer Social History Household Members: Other Household Members Other:: Sister Alcohol intake: current Alcohol intake frequency: does not drink Patient Tobacco Use Status: Never used Tobacco Physical Exam Vital Signs: Last Vital Signs Pulse 73 09/25/24 14:59 BP 112/72 09/25/24 14:59 BMI result Body Mass Index 26.0 Const Other: Absence of Cushingoid features. Absence of acromegalic features. Neck exam reveals nl size thyroid about 15 gms. No thyroid nodules palpable. Heart S1 S2, Reg R/R. No M/R G. Lungs clear. Skin exam reveals absence of vitiligo or acanthosis nigricans. Lips dry. No edema Visual exam of foot performed. No ulcerations or open lesions. No inter digit maceration or fissuring. + onychomycosis, no callouses. Sensation intact to monofilament exam. Vibratory sensation is normal with 128 Hz tuning fork. Skin dry no erythema indicating infection, slight ingrown toenail Results UR Ketone Dip UR Ketone Dip 15 Last Edit by YUSUF Linares on 09/25/24 15:17 Results Reviewed Results Reviewed: Laboratory Last Values Glucose (Clinic) 426 mg/dL (60-115) H* 09/25/24 15:08 Ur Ketones (Stick) 15 09/25/24 15:12 Assessment & Plan Assessment & Plan (1) Type 2 diabetes mellitus with hyperglycemia: Code(s): E11.65 - Type 2 diabetes mellitus with hyperglycemia Category: Medical Qualifiers: Diabetes mellitus retirement insulin use: with retirement use Qualified Code(s): E11.65 - Type 2 diabetes mellitus with hyperglycemia; Z79.4 - [facility] (current) use of insulin Plan: see below Plan 54-year-old type 2 diabetic with neuropathy previously on an insulin pump with poor glycemic control. She was taken off her pump in July due to multiple infections at both the sensor and pump insertion site. Her last infection she was treated at [facility] but nasal swabbing was not done to determine if she was colonized with staph aureus. She had been advised to use an antibacterial soap head to toe. She reports the nasal swab has been done at her PCP office. Today in the clinic she had a glucose of 424 and 15 on ketones. Due to hypoglycemic ketosis she was counseled to go to the emergency room immediately. She does not appear critical at this time and she is very alert. She was offered a ambulance via 911 which she declined but did agree to go immediately to [facility]. I advised the patient that ketosis can lead to coma and that it was absolutely essential that she went to the hospital for lab testing IV insulin and IV hydration as she is most likely dehydrated. She also appears to have a candidal vaginal infection and she was advised to discuss this with the ER. I will see her back after her hospital stay in approximately 2 weeks' time. She understands that achieving better glycemic control is essential for her health and if her sugars continue to stay I over time it would lead to damage to any part of the body with blood vessels. I will obtain the results of the nasal swab done at her PCP We will refer her to Podiatry Orders: Orders AMB Ketone Urine Dipstick Today E11.65 - Type 2 diabetes mellitus with hyperglycemia, Z79.4 - [facility] (current) use of insulin Referrals Podiatry Referral E11.65 - Type 2 diabetes mellitus with hyperglycemia, Z79.4 - [facility] (current) use of insulin Medications: Discontinued sulfamethoxazole-trimethoprim 800-160 mg (Bactrim DS) Discontinued Reason: Doctor's Order 1 tab PO Q12H 10 days 20 tabs 0RF L03.90 - Cellulitis, unspecified Patient Instructions: Go immediately to the emergency room The patient had an opportunity to ask questions regarding treatment plan. The patient expressed understanding and agreement with the above treatment plan. The patient is aware they should contact our office by phone for worsening glucose readings or for any low blood sugars which may warrant a change in diabetes medication. Compliance is encouraged with medications and any followup testing/consults which may have been ordered. Check your feet daily looking for any signs of infection, ulceration and seek medical attention if this occurs. Break in shoes gradually and do not wear open-toed shoes or walk barefooted. Coding Level of Care Code Est Pt Level 4 (30560) Complex EM visit Add On G2211 Diagnoses Type 2 diabetes mellitus with hyperglycemia, with long-term current use of insulin E11.65; Z79.4 Diabetes mellitus retirement insulin use: with retirement use Time Spent (min) 30 Comment Time spent reviewing labs/provider notes, face to face, chart doc
[2024-09-25 14:59] VITALS: BP 112/72; PULSE 73; BMI 26.0
[2024-09-25 15:14] LABS: Glucose, Whole Blood 426 mg/dL (60-115)
--- OUTSIDE RECORDS SUMMARY | 2024-09-25 17:26 | XMS_ITS | Encounter Summary ---
Author Organization [employer] Address [address] [facility] [address] [place] [address] Care Team Providers Care Supervisor Steno Pool Name Role Phone Grisel Meraz MD Primary Care Provider [phone] Reason for Visit * Reason Onset Date Comments Appointment Request 02/22/2023 Encounter Details Date Type Department Care Team ([facility] Contact Info) Description 02/22/2023 Telephone [facility] CHC MED & PEDS [address] [place] [address] rGisel Meraz MD [address] [place] [address] Appointment Request Social History Tobacco Use Types Packs/Day Years Used Date Smoking Tobacco: Never Assessed Depression Answer Date Recorded Patient Health Questionnaire-9 Score 21 10/26/2022 Depression Answer Date Recorded Patient Health Questionnaire-2 Score 6 10/26/2022 Comments Unknown Sex and Gender Information Value Date Recorded Sex Assigned at Female 07/04/2022 10:24 AM EDT Legal Sex Female 10:24 AM EDT Gender Identity Choose not to disclose 10:24 AM EDT Sexual Orientation Choose not to disclose 2021 10:24 AM EDT documented as of this encounter Miscellaneous Notes * Telephone Encounter - Dilshad Easton - 02/22/2023 1:02 PM EDT Tc from pt requesting to schedule a follow up appt with provider in regards to some referrals that are being required. Please contact pt at [phone] Uruguayan Speaker documented in this encounter Plan of Treatment Upcoming Encounters Date Type Department Care Team (Late st Contact Info) Description 10/31/2024 2:00 PM EST Nurse Only [facility] CHC MED & PEDS [address] [place] [address] 01/09/2025 3:00 PM EDT Office Visit [facility] OPTOMETRY [address] [place], [place] [phone] Antonella Mccord, OD [address] [place] [address] documented as of this encounter Visit Diagnoses Not on filedocumented in this encounter Additional Health Concerns Assessment Noted Time PHQ-9 Depression Total Score: 21 023 11:24 AM EST documented as of this encounter Care Teams Supervisor Steno Pool Relationship Specialty Start Date End Date Grisel Meraz MD [address] [place] [address] PCP - General Family Medicine 03/06/19 documented as of this encounter
--- OUTSIDE RECORDS SUMMARY | 2024-09-25 17:26 | XMS_ITS | Encounter Summary ---
Author Organization [employer] Address [address] [facility] 7t [place] [address] Care Team Providers Care Lockstitch Lining Maker Name Role Phone Grisel Meraz MD Primary Care Provider [phone] Encounter Details Date Type Department Care Team ([facility] st Contact Info) Description 09/25/2024 Orders Only GENERIC EXTERNAL DATA DEPARTMENT Provider, Generic External Data Social History Tobacco Use Types Packs/Day Years Used Date Smoking Tobacco: Never Passive Smoke Exposure: Never Smokeless Tobacco: Never Depression Answer Date Recorded Patient Health Questionnaire-9 Score 21 10/26/2022 Housing Stability Answer Date Recorded What is your housing situation today? I have ruizdeandre head 06/19/[address] you li ve. Do you have problems with any of the following? None of the above 06/19/2023 Food Insecurity Answer Date Recorded Within the past 12 months, y ou worried that your food would run out before you got money to buy more: Never True 06/19/2023 Within the past 12 months,th e food you bought just didn't last and you didn't have enough money to get more: Never True Transportation Answer Date Recorded In the past 12 months, has l ack of transportation kept you from medical appts, meetings, work or from getting things needed for daily living? No 06/19/2023 Utilities Answer Date Recorded In the past 12 months, has t he electric, gas, oil or water company threatened to shut off services in your home? No 06/19/2023 Depression Answer Date Recorded Patient Health Questionnaire-2 Score 6 10/26/2022 Comments Unknown Sex and Gender Information Value Date Recorded Sex Assigned at Female 07/04/2022 10:24 AM EDT Legal Sex Female 10:24 AM EDT Gender Identity Choose not to disclose 10:24 AM EDT Sexual Orientation Choose not to disclose 2021 10:24 AM EDT documented as of this encounter Plan of Treatment Upcoming Encounters Date Type Department Care Team (Late st Contact Info) Description 10/31/2024 2:00 PM EST Nurse Only [facility] CHC MED & PEDS [address] [place], [place] [phone] 01/09/2025 3:00 PM EDT Office Visit [facility] OPTOMETRY [address] [place] [address] Flex, Antonella, OD [address] [place] [address] documented as of this encounter Procedures Procedure Name Priority Date/Time Associated Diagnosis Comments GLUCOSE, WHOLE BLOOD Routine 09/25/2024 3:08 PM EST documented in this encounter Results * (ABNORMAL) Glucose, Whole Blood (09/25/2024 3:08 PM EST) [facility] Signature Glucose, Whole Blood 426() 60 - 115 mg/dL [facility] Comment:METER #: [id number] Testing performed in the Endocrinology Department [address] , [address], [facility]. 09/25/2024 3:08 PM EST 09/25/2024 3:13 PM EST us Generic External Data Provider LAB BLOOD ORDERAB LES Final Result [facility] [address] [place] [address] [phone] documented in this encounter Visit Diagnoses Not on filedocumented in this encounter Additional Health Concerns Assessment Noted Time PHQ-9 Depression Total Score: 21 023 11:24 AM EST documented as of this encounter Care Teams Lockstitch Lining Maker Relationship Specialty Start Date End Date Grisel Meraz MD [address] [place], [place] [phone] PCP - General Family Medicine 03/06/19 documented as of this encounter
--- OUTSIDE RECORDS SUMMARY | 2024-09-25 17:26 | XMS_ITS | Encounter Summary ---
Author Organization [employer] Address [address] [facility] [address] 7[address] [place] [address] Care Team Providers Care Scrub Nurse Name Role Phone Grisel Meraz MD Primary Care Provider [phone] Encounter Details Date Type Department Care Team (Latest Contact Info) Description 09/05/2024 Travel Social History Tobacco Use Types Packs/Day Years [...] Description 10/31/2024 2:00 PM EST Nurse Only [facility] CHC MED & PEDS [address] [place] [address] 01/09/2025 3:00 PM EDT Office Visit [facility] OPTOMETRY [address] [place] [address] Flex, Antonella, OD [address] [place] [address] documented as of this encounter Visit Diagnoses Not on filedocumented in this encounter Additional Health Concerns Assessment Noted Time PHQ-9 Depression Total Score: 21 023 11:24 AM EST documented as of this encounter Care Teams Scrub Nurse Relationship Specialty Start Date End Date Grisel Meraz MD [address] [place] [address] PCP - General Family Medicine 03/06/19 documented as of this encounter
--- OUTSIDE RECORDS SUMMARY | 2024-09-25 17:26 | XMS_ITS | Encounter Summary ---
Author Organization [employer] Address [address] [facility] [address] 7[address] [place] [address] Care Team Providers Care Senior Environmental Engineer Name Role Phone Grisel Meraz MD Primary Care Provider [phone] Encounter Details Date Type Department Care Team ([facility] st Contact Info) Description 09/06/2024 Orders Only [facility] CHC MED & PEDS [address] [place] [address] Grisel Meraz MD [address] [place] [address] Boils of multiple sites (Primary Dx) Social History Tobacco Use Types Packs/Day Years Used Date Smoking Tobacco: Never Passive Smoke Exposure: Never Smokeless Tobacco: Never Depression Answer Date Recorded Patient Health Questionnaire-9 Score 21 10/26/2022 Housing Stability Answer Date Recorded What is your housing situation today? I have ruiz head 06/19/[address] you [...] Description 10/31/2024 2:00 PM EST Nurse Only [facility] CHC MED & PEDS [address] [place], [place] [phone] 01/09/2025 3:00 PM EDT Office Visit [facility] OPTOMETRY [address] [place] [address] Flex, Antonella, OD [address] [place] [address] documented as of this encounter Visit Diagnoses Diagnosis Boils of multiple sites- Primary documented in this encounter Additional Health Concerns Assessment Noted Time PHQ-9 Depression Total Score: 21 023 11:24 AM EST documented as of this encounter Care Teams Senior Environmental Engineer Relationship Specialty Start Date End Date Grisel Meraz MD [address] [place] [address] PCP - General Family Medicine 03/06/19 documented as of this encounter
--- OUTSIDE RECORDS SUMMARY | 2024-09-25 17:26 | XMS_ITS | Encounter Summary ---
Author Organization [employer] [facility] Address [address] [place] [address] 7 [place] [address] Care Team Providers Care Sales Ledger Clerk Name Role Phone Grisel Meraz MD Primary Care Provider [phone] Encounter Details Date Type Department Care Team (Latest Contact Info) Description 07/06/2022 Abstract [facility] CONVERSIONS Dental, Provider, DDS Social History Tobacco Use Types Packs/Day Years Used Date Smoking Tobacco: Never Assessed Comments Unknown Sex and Gender Information Value [...] Description 10/31/2024 2:00 PM EST Nurse Only [facility] CHC MED & PEDS [address] [place] [address] 01/09/2025 3:00 PM EDT Office Visit [facility] OPTOMETRY [address] [place] [address] Flxe, Antonella, OD [address] [place] [address] documented as of this encounter Visit Diagnoses Not on filedocumented in this encounter Care Teams Sales Ledger Clerk Relationship Specialty Start Date End Date Grisel Meraz MD [address] [place] [address] PCP - General Family Medicine 03/06/19 documented as of this encounter
--- OUTSIDE RECORDS SUMMARY | 2024-09-25 17:26 | XMS_ITS | Encounter Summary ---
Author Organization [employer] Address [address] [facility] 7 [place] [address] Care Team Providers Care Dry Cleaner Name Role Phone Grisel Meraz MD Primary Care Provider [phone] Reason for Visit * Reason Onset Date Comments FYI 09/14/2022 Encounter Details Date Type Department Care Team ([facility] Contact Info) Description 09/14/2022 Telephone [facility] MEDICINE [address] [place] [address] Grisel Meraz MD [address] [place], [place] [phone] FY Social History Tobacco Use Types Packs/Day Years [...] not to disclose 2021 10:24 AM EDT COVID-19 Exposure Response Date Recorded In the last 10 days, have yo u been in contact with someone who was confirmed or suspected to have Coronavirus/COVID-19? No / Unsure 12/06/2022 10:04 AM EDT documented as of this encounter Miscellaneous Notes * Telephone Encounter - Sonja Calixto RN - 09/14/2022 1:31 PM EST Will forward below to PCP to inform. * Telephone Encounter - Richard Anderson - 09/14/2022 1:19 PM EST Tc from pt would like to inform PCP that they have been hospitalized and was scheduled for a biopsyyesterday, 09/23/22. pt is unaware when they will be discharged. Advised will leave message as a FYI. Please contact at [phone] documented in this encounter Plan of Treatment Upcoming Encounters Date Type Department Care Team (Late st Contact Info) Description 10/31/2024 2:00 PM EST Nurse Only [facility] CHC MED & PEDS [address] [place] [address] 01/09/2025 3:00 PM EDT Office Visit [facility] OPTOMETRY [address] [place], [place] [phone] Antonella Mccord, OD [address] [place] [address] documented as of this encounter Visit Diagnoses Diagnosis Type 2 diabetes mellitus with hyperglycemia, with long-term current use of insulin ([facility])- Primary documented in this encounter Care Teams Dry Cleaner Relationship Specialty Start Date End Date Grisel Meraz MD [address] [place] [address] PCP - General Family Medicine 03/06/19 documented as of this encounter
--- OUTSIDE RECORDS SUMMARY | 2024-09-25 17:26 | XMS_ITS | Encounter Summary ---
Author Organization [employer] [facility] Address 75 [facility] 7 [place] [address] Care Team Providers Care Assistant Professor Of Chemistry Name Role Phone Grisel Meraz MD Primary Care Provider [phone] Reason for Visit * Reason Onset Date Comments triage 08/16/2022 Encounter Details Date Type Department Care Team ([facility] Contact Info) Description 08/16/2022 Telephone [facility] CHC MED & PEDS [address] [place], [place] [phone] Grisel Meraz MD [address] [place] [address] triage Social History Tobacco Use Types Packs/Day Years [...] encounter Miscellaneous Notes * Telephone Encounter - Yun Hawthorne - 08/16/2022 11:03 AM EST Patient calling to report Losing weight x Months. Patient speaks (Frisian). Advised triage nurse will call patient back. documented in this encounter Plan of Treatment Upcoming Encounters Date Type Department Care Team ([facility] Contact Info) Description 10/31/2024 2:00 PM EST Nurse Only [facility] CHC MED & PEDS [address] [place], [place] [phone] 01/09/2025 3:00 PM EDT Office Visit [facility] OPTOMETRY [address] [place] [address] Antonella Mccord, OD [address] [place] [address] documented as of this encounter Visit Diagnoses Not on filedocumented in this encounter Care Teams Assistant Professor Of Chemistry Relationship Specialty Start Date End Date Grisel Meraz MD [address] [place] [address] PCP - General Family Medicine 03/06/19 documented as of this encounter
--- OUTSIDE RECORDS SUMMARY | 2024-09-25 17:26 | XMS_ITS | Encounter Summary ---
Author Organization [employer] Address [address] [facility] [address] [place] [address] Care Team Providers Care Check Scaler Name Role Phone Grisel Meraz MD Primary Care Provider [phone] Encounter Details Date Type Department Care Team (Latest Contact Info) Description 09/02/2024 Travel Social History Tobacco Use Types Packs/Day [...] 2:00 PM EST Nurse Only [facility] CHC MED & PEDS [address] [place] [address] 01/09/2025 3:00 PM EDT Office Visit [facility] OPTOMETRY [address] [place] [address] Flex, Antonella, OD [address] [place] [address] documented as of this encounter Visit Diagnoses Not on filedocumented in this encounter Additional Health Concerns Assessment Noted Time PHQ-9 Depression Total Score: 21 023 11:24 AM EST documented as of this encounter Care Teams Check Scaler Relationship Specialty Start Date End Date Grisel Meraz MD [address] [place] [address] PCP - General Family Medicine 03/06/19 documented as of this encounter
--- OUTSIDE RECORDS SUMMARY | 2024-09-25 17:26 | XMS_ITS | Encounter Summary ---
Author Organization [employer] Address [address] [facility] [facility] [address] [place] [address] Care Team Providers Care Sap Fico Architect Name Role Phone Grisel Meraz MD Primary Care Provider [phone] Encounter Details Date Type Department Care Team ([facility] st Contact Info) Description 07/11/2023 Abstract [facility] MEDICINE [address] [place] [address] Grisel Meraz MD [address] [place], [place] [phone] Social History Tobacco Use Types Packs/Day Years [...] Description 10/31/2024 2:00 PM EST Nurse Only [facility] CHC MED & PEDS [address] [place], [place] [phone] 01/09/2025 3:00 PM EDT Office Visit [facility] OPTOMETRY [address] [place], [place] [phone] Flex, Antonella, OD [address] [place], [place] [phone] documented as of this encounter Procedures Procedure Name Priority Date/Time Associated Diagnosis Comments COLONOSCOPY Routine 11/22/2016 documented in this encounter Results * Colonoscopy (11/22/2016) Colonoscopy Normal Normal Narrative Vianey Ross - 11/22/2016 Recommended 5 year follow up Historical Provider HEALTH MAINTENANCE Final Result documented in this encounter Visit Diagnoses Not on filedocumented in this encounter Additional Health Concerns Assessment Noted Time PHQ-9 Depression Total Score: 21 023 11:24 AM EST documented as of this encounter Care Teams Sap Fico Architect Relationship Specialty Start Date End Date Grisel Meraz MD [address] [place], [place] [phone] PCP - General Family Medicine 03/06/19 documented as of this encounter
--- OUTSIDE RECORDS SUMMARY | 2024-09-25 17:26 | XMS_ITS | Encounter Summary ---
Author Organization [employer] Address [address] [facility] 7t [place] [address] Care Team Providers Care Customer Success Manager Name Role Phone Grisel Meraz MD Primary Care Provider [phone] Reason for Visit * Reason Onset Date Comments Lab Orders 09/06/2024 Encounter Details Date Type Department Care Team ([facility] Contact Info) Description 09/06/2024 Telephone [facility] MEDICINE [address] [place], [place] [phone] Brigette Hubbard RN [address] [place] [address] Lab Orders Social History Tobacco Use Types Packs/Day Years [...] encounter Miscellaneous Notes * Telephone Encounter - Liudmila Gaona MA - 09/06/2024 2:11 PM EST Faxed new order to [facility] labs f#[id number]. Confirmation ok. Sent to scan * Telephone Encounter - Brigette Hubbard RN - 09/06/2024 12:52 PM EST Received call from [facility] lab reporting they received a MRSA swab but order states nasal culture. Neednew order that states MRSA faxed to the lab. Message sent to PCP and dept. Applied Psychology Chair. documented in this encounter Plan of Treatment Upcoming Encounters Date Type Department Care Team (Late st Contact Info) Description 10/31/2024 2:00 PM EST Nurse Only [facility] CHC MED & PEDS [address] [place] [address] 01/09/2025 3:00 PM EDT Office Visit [facility] OPTOMETRY [address] [place] [address] Flex, Antonella, OD [address] [place] [address] documented as of this encounter Visit Diagnoses Not on filedocumented in this encounter Additional Health Concerns Assessment Noted Time PHQ-9 Depression Total Score: 21 023 11:24 AM EST documented as of this encounter Care Teams Customer Success Manager Relationship Specialty Start Date End Date Grisel Meraz MD [address] [place] [address] PCP - General Family Medicine 03/06/19 documented as of this encounter
--- OUTSIDE RECORDS SUMMARY | 2024-09-25 17:26 | XMS_ITS | Clinical Summary ---
Author Organization [employer] Address [address] [facility] [address] [place] [address] Care Team Providers Care Professor Of Voice Name Role Phone Grisel Meraz MD Primary Care Provider Allergies Active Allergy Reactions Criticality Noted Date Comments Acetaminophen Unknown 01/18/2017 Other reaction(s): Unknown Hydrocodone Anaphylaxis High 01/24/2023 Hydrocodone-Acetaminoph en Anaphylaxis,Anxiety High 07/20/2011 Pt cannot breath Oxycodone Shortness of breath,Unknown,Other High 01/18/2017 Other reaction(s): Unknown Other reaction(s): Unknown Other reaction(s): Unknown Other reaction(s): Unknown Oxycodone-Acetaminophen Anaphylaxis,Shor tness of breath High 07/20/2011 Pt cannot breath -throat gets swollen. Medications acetaminophen (Tylenol) 500 MG tablet Take 2 tablets by mouth every 8 (eight) hours. 09/16/19 23 Active hydrOXYzine HCl (Atarax) 50 MG tablet Take 1 tablet by mouth at bedtime. 09/15/19 23 Active miconazole (Micotin) 2 % vaginal cream INSERT ONE APPLICATORFUL VAGINALLY AT BEDTIME 07/07/20 22 Active omega-3 (Fish Oil) 1000 MG capsule Take 1 capsule by mouth in the morning. 05/05/20 22 Active polyethylene glycol, PEG, 3350 (Miralax) 17 g packet MIX 1 PACKET IN 8 OUNCES OF WATER, JUICE,SODA, COFFEE, OR TEA DAILY NEEDED FOR CONSTIPATION 09/16/19 23 Active Senna-Plus 8.6-50 MG tablet Take 1 tablet by mouth 2 times daily. As needed for constipation 09/16/19 23 Active simethicone (Mylicon) 80 MG chewable tablet CHEW ONE TABLET FOUR TIMES DAILY NEEDED FOR BLOATING 09/16/19 Active traZODone (Desyrel) 50 MG tablet Take 1 tablet by mouth at bedtime. 09/14/19 Active venlafaxine XR (Effexor XR) 150 MG 24 hr capsule Take 1 capsule by mouth in the morning. 09/14/19 Active Lantus SoloStar 100 UNIT/ML penIndications:Ty pe 2 diabetes mellitus without complication, with long-term current use of insulin (CMS/HCC) Inject 30 Units under the skin at bedtime. 3 mL 10/26/19 Active TRUEplus Lancets 33G misc TEST BLOOD SUGAR FOUR TIMES DAILY 100 each 12/22/19 Active Alcohol Swabs (Alcohol Prep) 70 % pads Use 4 x a day as needed 100 each 12/22/19 Active BD Pen Needle Tania U/F 32G X 4 MM misc Inject under the skin 4 times daily. Use as instructed 100 each 12/22/19 Active Blood Glucose Monitoring Suppl ([employer]) w/Device kit CHECK BLOOD SUGAR FOUR TIMES DAILY 1 kit 12/22/19 Active ARIPiprazole (Abilify) 5 MG tablet 03/23/20 Active Continuous Blood Gluc Sensor (Dexcom G6 Sensor) misc 1 kit continuously. 1 each 3 03/30/20 Active fluconazole (Diflucan) 100 MG tablet Take 1 tablet (100 mg) by mouth in the morning. 1 tablet 1 06/28/20 Active Estrogens Conjugated (Premarin) 0.625 MG/GM cream Insert 1 Applicatorful into the vagina 1 (one) time per week. 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 Rinse mouth with water after use to reduce aftertaste and incidence of candidiasis. Do not swallow. 13 g 10/19/19 24 025 Active Multiple Vitamin (Multivitamin) tabletIndications :Type 2 diabetes mellitus without complication, with long-term current use of insulin ([facility]) TAKE ONE TABLET EVERY MORNING 100 tablet 12/15/19 24 Active rosuvastatin (Crestor) 40 MG tablet TAKE ONE TABLET EVERY MORNING 30 tablet 04/17/20 24 Active lisinopril 2.5 MG tablet TAKE ONE TABLET EVERY MORNING 30 tablet 04/17/20 24 Active loratadine (Claritin) 10 MG tablet TAKE 1 TABLET EVERY MORNING 90 tablet 1 04/24/20 24 Active oxybutynin XL (Ditropan-XL) 5 MG 24 hr tabletIndications :Type 2 diabetes mellitus with hyperglycemia, with long-term current use of insulin ([facility]) TAKE ONE TABLET EVERY MORNING 30 tablet 05/20/20 24 Active pantoprazole (ProtoNix) 40 MG EC tabletIndications :Type 2 diabetes mellitus with hyperglycemia, with long-term current use of insulin ([facility]) TAKE ONE TABLET EVERY MORNING 30 tablet 05/20/20 24 Active pioglitazone (Actos) 15 MG tablet TAKE ONE TABLET EVERY MORNING 30 tablet 06/18/20 24 Active gabapentin (Neurontin) 300 MG capsule TAKE ONE CAPSULE TWICE DAILY IN THE MORNING AND AT BEDTIME 180 capsule 3 08/16/20 24 Active budesonide-formot jovanny (Symbicort) 160-4.5 MCG/ACT inhaler 09/14/19 23 Active cloNIDine (Catapres) 0.1 MG tablet TAKE ONE TABLET TWICE DAILY IN THE MORNING AND AT BEDTIME NEEDED FOR SLEEP OR FOR ANXIETY 08/14/20 24 Active zoster vaccine-recombina nt adjuvanted (Shingrix) 50 MCG/0.5ML vaccine Inject 0.5 mL (50 mcg) into the muscle 1 (one) time for 1 dose. 0.5 mL 09/05/19 25 025 mupirocin (Bactroban) 2 % ointment Apply topically 2 times daily for 10 days. 22 g 09/05/19 25 025 traMADol (Ultram) 50 MG tabletIndications :Multiple joint pain Take 1 tablet (50 mg) by mouth every 6 (six) hours if needed for severe pain for up to 10 days. 30 tablet 09/05/19 025 Active Problems Problem Noted Date Diagnosed Date Diabetes mellitus, labile 09/05/2024 Non-Hodgkin's lymphoma 09/29/2022 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 09/26/2022 Bunion 06/27/2018 Hyperlipidemia 06/27/2018 Migraine 06/27/2018 Mild intermittent asthma 06/27/2018 Mood disorder 06/27/2018 Multiple joint pain 06/27/2018 Seasonal allergies 06/27/2018 Type 2 diabetes mellitus without complication Encounters Date Type Department Care Team Description 09/25/2024 Orders Only GENERIC EXTERNAL DATA DEPARTMENT Provider, Generic External Data 09/06/2024 Orders Only [facility] [address] [place] [address] Grisel Meraz MD Boils of multiple sites (Primary Dx) 09/06/2024 Telephone [facility] [address] [place], [place] [phone] Brigette Hubbard RN Lab Orders 09/05/2024 1:20 PM EST Office Visit [facility] [address] [place] [address] Grisel Meraz MD Encounter for immunization (Primary Dx); Type 2 diabetes mellitus without complication, with long-term current use of insulin (CMS/HCC); Boils of multiple sites; BETSY (obstructive sleep apnea); Multiple joint pain; Diabetes mellitus, labile (CMS/HCC); Non-Hodgkin lymphoma of intra-abdominal lymph nodes, unspecified non-Hodgkin lymphoma type (CMS/HCC); Dietary counseling; Exercise counseling 09/05/2024 Travel 09/02/2024 Travel 08/16/2024 Refill [facility] [address] [place] [address] Grisel Meraz MD 08/06/2024 Travel 07/31/2024 Telephone [facility] [address] [place] [phone] Grisel Meraz MD No Show 07/30/2024 Orders Only GENERIC EXTERNAL DATA DEPARTMENT Provider, Generic External Data 07/29/2024 Telephone [facility] [address] [place] [address] Grisel Meraz MD Chart Prep 07/16/2024 Orders Only GENERIC EXTERNAL DATA DEPARTMENT Provider, Generic External Data 07/05/2024 Telephone [facility] [address] [place] [address] Grisel Meraz MD No Show 06/25/2024 Orders Only GENERIC EXTERNAL DATA DEPARTMENT Provider, Generic External Data from Last 3 Months Immunizations Name Administration Dates Next Due Influenza Injectable Quadriv alant Preservative Free IIV4 MDCK 10/14/2020 Influenza injectable quadriv alent IIV4 with preservative 05/30/2019,06/27/2018 Influenza injectable quadriv alent preservative free 06/28/2023 Influenza, seasonal, injecta ble, preservative free 09/05/2024 Moderna Covid-19 Vaccine 12+ 02/11/2021,01/15/20 21 Pneumococcal Polysaccharide PPSV23 03/10/2014 Tdap 10/06/2020, 8,12/23/2016,03/10 Zoster, Recombinant 09/05/2024 Social History Tobacco Use Types Packs/Day Years Used Date Smoking Tobacco: Never Passive Smoke Exposure: Never Smokeless Tobacco: Never Tobacco Cessation:Counseling Given: Not Answered Depression Answer Date Recorded Patient Health Questionnaire-9 [...] the past 12 months, has t he [employer], gas, oil or water company threatened to [...] not to disclose 2021 10:24 AM EDT Last Filed Vital Signs Vital Sign Reading Time Taken Comments Blood Pressure 92/70 09/05/2024 1:28 PM EST Pulse 92 09/05/2024 1:28 PM EST Temperature 36.6 ??C (97.8 ??F) 09/05/2024 1:28 PM ES T Respiratory Rate 20 09/05/2024 1:28 PM EST Oxygen Saturation 98% 04/09/2024 11:18 AM EDT Inhaled Oxygen Concentration - - Weight 73 kg (161 lb) 09/05/2024 1:28 PM EST Height 165.1 cm (5' 5 ) 09/05/2024 1:28 PM EST Body Mass Index 26.79 09/05/2024 1:28 PM EST Plan of Treatment Upcoming Encounters Date Type Department Care Team (Late st Contact Info) Description 10/31/2024 2:00 PM EST Nurse Only [facility] [address] [place] [address] 01/09/2025 3:00 PM EDT Office Visit [facility] [address] [place], [place] [phone] Flex, Antonella, OD [address] [place], [place] [phone] Health Maintenance Due Date Last Done Comments CT Colonography 1972 Dental Prophylaxis 1972 FIT DNA/Cologuard 1972 FIT 1972 FOBT 1972 Sigmoidoscopy 1972 Diabetes: Foot Exam 1982 Eye Exam 1982 Alcohol/Substance Use Screening 1984 Family Planning (PISQ) 1987 Hepatitis B Vaccines (1 of 3 - 19+ 3-dose series) 1991 Pap Smear 1993 Mammogram 2012 Pneumococcal Vaccine: Pediatrics (0 to 5 Years) and At-Risk Patients (6 to 64 Years) (2 of 2 - PCV) 03/10/2015 03/10/2014 Dental Oral Exam 01/16/2020 07/17/2019 Colonoscopy 11/22/2021 11/22/2016 Colorectal Cancer Screening 11/22/2021 Dental X-Ray: Full Mouth 07/18/2022 07/17/2019 Depression Monitoring (PHQ-9) 04/25/2023 10/26/2022, 10/26/2022 Dental X-Ray: Bitewings 07/07/2023 07/06/2022, 07/17 Depression Screening 10/26/2023 10/26/2022, 10/26/19 23 SDOH Screening 10/26/2023 10/26/2022 Cervical Cancer Screening 04/18/2024 HPV/Cotest 04/18/2024 04/18/2019 COVID-19 Vaccine ( season) 2024 10/27/2022, 12/13/2021, 02/11/2021, Additional history exists Diabetes: Urine Protein Screening 09/06/2024 09/06/2023, 12/03/2021, 12/25/2020 Lipid Panel 09/06/2024 09/06/2023, 04/0 09/2021, 12/25/2020 Zoster Vaccines (2 of 2) 10/31/2024 09/05/2024 Diabetes: Hemoglobin A1C 12/04/2024 025, 04/09/2024, 10/06/2023, Additional history exists Tobacco Screening 09/05/2025 09/05/2024 DTaP/Tdap/Td Vaccines (5 - Td or Tdap) 10/06/2030 10/06/2020, 06/27/2018, 12/23/2016, Additional history exists RSV Patients and Patients Aged 60 years or older (1 - 1-dose 75+ series) 2047 HIV Screening Completed 12/03/2021 Hepatitis C Screening Completed 12/03/2021, 021 Influenza Vaccine Completed 09/05/2024, , 10/14/2020, Additional history exists HIB Vaccines Aged Out No longer eligi ble based on patient's age to complete this topic HPV Vaccines Aged Out No longer eligi ble based on patient's age to complete this topic Hepatitis A Vaccines Aged Out No long er eligible based on patient's age to complete this topic IPV Vaccines Aged Out No longer eligi ble based on patient's age to complete this topic Meningococcal Vaccine Aged Out No edgar luis f eligible based on patient's age to complete this topic RSV under 20 months Aged Out No longe r eligible based on patient's age to complete this topic Rotavirus Vaccines Aged Out No longer eligible based on patient's age to complete this topic Procedures Procedure Name Priority Date/Time Associated Diagnosis Comments GLUCOSE, WHOLE BLOOD Routine 09/25/2024 3:08 PM EST POCT GLYCATED HEMOGLOBIN, TOTAL Routine 09/05/2024 1:57 PM EST Type 2 diabetes mellitus without complication, with long-term current use of insulin ([facility]) POCT GLUCOSE Routine 09/05/2024 1:57 PM EST Type 2 diabetes mellitus without complication, with long-term current use of insulin ([facility]) MRSA NASAL SCREEN Routine 09/05/2024 1:4 5 PM EST Boils of multiple sites GLUCOSE, WHOLE BLOOD Routine 07/30/2024 3:43 PM EST GLUCOSE, WHOLE BLOOD Routine 07/16/2024 4:02 PM EST GLUCOSE, WHOLE BLOOD Routine 07/16/2024 3:42 PM EST GLUCOSE, WHOLE BLOOD Routine 06/25/2024 2:56 PM EDT ALBUMIN, RANDOM URINE W/CREATININE Routine 09/06/2023 11:30 AM EST LIPID PANEL, STANDARD Routine 09/06/2023 11:30 AM EST BITEWINGS - 4 RADIOGRAPHIC IMAGES Routine 07/06/2022 12:00 AM EDT ZZZ HISTORICAL HEPATITIS C AB W/REFL TO HCV RNA, QN, PCR Routine 12/03/2021 12:00 AM EDT HIV 1/2 ANTIGEN/ANTIBODY, FOURTH GENERATION W/RFL Routine 12/03/2021 12:00 AM EDT DIAGNOSTIC - DIAGNOSTIC IMAGING - INTRAORAL - COMPREHENSIVE SERIES OF RADIOGRAPHIC IMAGES Routine 07/17/2019 12:00 AM EST COMPREHENSIVE ORAL EVALUATION - NEW OR ESTABLISHED PATIENT Routine 07/17/2019 12:00 AM EST ZZZ HISTORICAL HPV E6/E7 RFLX SONIA 16 18/45 Routine 04/18/2019 11:40 AM EDT HM COLONOSCOPY Routine 11/22/2016 from Last 3 Months or Most Recently Relevant to Health Maintenance Results * (ABNORMAL) Glucose, Whole Blood (09/25/2024 3:08 PM EST) Only the most recent of5 resultswithin the time period is included. Glucose, Whole Blood 426(HH) 60 - 115 mg/dL [facility] Comment:METER #: [id number] Testing performed in the Endocrinology Department [address] , [address], [place]. 09/25/2024 3:08 PM EST 09/25/2024 3:13 PM EST us Generic External Data Provider LAB BLOOD ORDERAB LES Final Result [facility] [address] [place] [address] [phone] * (ABNORMAL) POCT HGB A1C (09/05/2024 1:57 PM EST) Pathologist [facility] Hemoglobin A1C 9.2(A) 4.0 - 6.0 % QC Media Lot # [id number] Lot# Expiration Date [id number] Blood 09/05/2024 1:57 PM EST us Grisel Meraz MD POINT OF CARE TEST ENTER/EDIT ORDERABLES Final Result * (ABNORMAL) POCT Glucose (09/05/2024 1:57 PM EST) Pathologist [facility] Glucose Blood, POC 500(A) 60 - 200 mg/dL Comment:[facility] QC Media Lot # [id number] Lot# Expiration Date [id number] Blood Capillary blood specimen / Unknown 09/05/2024 1:57 PM EST us Grisel Meraz MD POINT OF CARE TEST ENTER/EDIT ORDERABLES Final Result * (ABNORMAL) MRSA Nasal Screen (09/05/2024 1:45 PM EST) [facility] MRSA Nasal PCR NEGATIVE Negative [facility] SA Nasal PCR POSITIVE(A) Negative [facility] MRSA Interpretation SEE NOTE [facility] Comment:MRSA target DNA not detected; SA target DNA detected.A MRSA NEGATIVE, SA POSITIVE test result does not precludeMRSA nasal colonization. Nares Nasal structure / Unknown 09/05/2024 1:45 PM EST 09/06/2024 1:44 PM EST us Grisel Meraz MD LAB MICROBIOLOGY - GENERAL OR DERABLES Final Result [facility] [address] [place] [address] [phone] * Albumin, Random Urine W/Creatinine (09/06/2023 11:30 AM EST) Creatinine, Urine 63.27 mg/dL [facility] Microalbumin Urine 8.0 mg/L [facility] Microalbum Creatinine Ratio Ur 12.6 <30 ug/mg cr [facility] Comment:Albumin/Creatinine R at Reference Ranges: Normal: < 30 ug/mg creatinine Microalbuminuria: 30 - 300 ug/mg creatinineClinical Albuminuria: > 300 ug/mg creatinine 09/06/2023 11:3 0 AM EST 09/06/2023 1:26 PM EST us Generic External Data Provider LAB URINE ORDERAB LES Final Result Performing Organization Address City/State/[facility] Co de Phone Number [facility] [address] [place] [phone] * (ABNORMAL) Lipid Panel, Standard (09/06/2023 11:30 AM EST) Triglycerides 220(H) <150 mg/dL [facility] Comment:Desirable Triglyceri de: less than 150 mg/dLBorderline High Triglyceride 150-199 mg/dLHigh Triglyceride: 200-499 mg/dLVery High Triglyceride: greater than or equal to 5OO mg/dL Cholesterol 211(H) <200 mg/dL [facility] Comment:Desirable Cholestero l: less than 200 mg/dLBorderline High Cholesterol: 200-239 mg/dLHigh Cholesterol: greater than 239 mg/dL LDL Cholesterol Calculated 110(H) <100 mg/dL [facility] Comment:Desirable LDL: less than 100 mg/dLNear Optimal/Above Optimal LDL: 110- 129 mg/dLBorderline High LDL: 130-159 mg/dLHigh LDL: 160-189 mg/dLVery High LDL: greater than or equal to 190 mg/dL HDL Cholesterol 57 >40 mg/dL [facility] Comment:Desirable HDL: great er than 40 mg/dL Note: This HDL assay may give artificially low results in patients with liver disease. 09/06/2023 11:3 0 AM EST 09/06/2023 11:31 AM EST us Generic External Data Provider LAB BLOOD ORDERAB LES Final Result [facility] [address] [place] [address] [phone] * HEPATITIS C AB W/REFL TO HCV RNA, QN, PCR (12/03/2021 12:00 AM EDT) HEPATITIS C ANTIBODY NON-REACT MICHAEL NON-REACT MICHAEL [facility] INDEX 0.01 <1.00 [facility] Comment: ?? HCV antibody was non-reactive. There is no laboratory ?? evidence of HCV infection. ?? In most cases, no further action is required. However, if recent HCV exposure is suspected, a test for HCV RNA (test code 47316) is suggested. ?? For additional information please refer to http://[employer]/faq/VST27s1 (This link is being provided for informational/ educational purposes only.) ?? 12/03/2021 us Grisel Meraz MD HISTORICAL/NON ORDERABLE LABS Final Result Performing Organization Address City/[facility]/ZIP Co de Phone Number [facility] [address] * HIV 1/2 ANTIGEN/ANTIBODY,FOURTH GENERATION W/RFL (12/03/2021 12:00 AM EDT) HIV-1/2 ANTIGEN AND ANTIBODIES, 4TH GENERATION W/ REFLEX NON-REACT MICHAEL NON-REACT MICHAEL [facility] Comment: HIV-1 antigen and HIV-1/HIV-2 antibodies were not detected. There is no laboratory evidence of HIV infection. ?? PLEASE NOTE: This information has been disclosed to you from records whose confidentiality may be protected by state law. ??If your state requires such protection, then the state law prohibits you from making any further disclosure of the information without the specific written consent of the person to whom it pertains, or as otherwise permitted by law. A general authorization for the release of medical or other information is NOT sufficient for this purpose. ? For additional information please refer to http://education.[employer]/faq/DCQ495 (This link is being provided for informational/ educational purposes only.) ? The performance of this assay has not been clinically validated in patients less than 2 years old. ?? 12/03/2021 us Grisel Meraz MD LAB BLOOD ORDERABLES Final Re sult [facility] [address] * HPV E6/E7 RFLX SONIA 16 18/45 (04/18/2019 11:40 AM EDT) HPV 16 RNA Test not performed [facility] HPV 18/45 RNA Test not performed [facility] HPV mRNA E6/E7 Not Detected NOT DETECTED [facility] Comment: This test was performed using the APTIMA(R) HPV Assay ([employer] This assay detects E6/E7 viral messenger RNA (mRNA) from 14 high-risk HPV types (16,18,31,33,35,39,45,51, 52,56,58,59,66,68). For additional information please refer to: http://[employer]/faq/QOC662w3 (This link is being provided for informational/ educational purposes only.) The analytical performance characteristics of this assay have been determined by [employer] [place], [place]. The modifications have not been cleared or approved by the FDA. This assay has been validated pursuant to the CLIA regulations and is used for clinical purposes. Please note: ??Effective 05/16/2016, HPV testing will be performed using [employer] APTIMA test which targets mRNA. Detecting mRNA instead of DNA, as in older methods, offers significant improvements in specificity. ADDITIONAL TESTING Not indicated () [facility] Comment: Test Performed by Michelle Kamara, [employer], [address] [place] [address] Jorje Hendrickson M.D., Ph.D., Director of Laboratories , CLIA [id number] 04/18/2019 11:4 0 AM EDT Grisel Meraz MD HISTORICAL/NON ORDERABLE LABS Final Result [facility] [address] * Colonoscopy (11/22/2016) Colonoscopy Normal Normal Narrative Vianey Ross - 11/22/2016 Recommended 5 year follow up Historical Provider HEALTH MAINTENANCE Final Result from Last 3 Months or Most Recently Relevant to Health Maintenance Insurance [employer] PPO D[facility]AL-[facility] MEDICAID STAND ADULT Advance Directives Documents on File Type Date Recorded Patient Party Plan Sales Host/Hostess Expl anation Advance Directives and Livin g Will 11/09/2023 3:59 PM HCP Care Teams Professor Of Voice Relationship Specialty Start Date End Date Grisel Meraz MD [address] [place] [phone] PCP - General Family Medicine 03/06/19
--- OUTSIDE RECORDS SUMMARY | 2024-09-25 17:26 | XMS_ITS | Encounter Summary ---
Author Organization [facility] Address [address] [place] [address] Care Team Providers Care Autocad Technician Name Role Phone Grisel Meraz MD Primary Care Provider Reason for Visit * Reason Comments Hyperglycemia PT sent in by endocr inology for elevated blood sugars Encounter Details Date Type Department Care Team (Late Contact Info) Description 09/25/2024 4:59 PM EST Emergency [facility] Emergency [address] [place] [address] Social History Tobacco Use Types Packs/Day Years Used Date Smoking Tobacco: Never Smokeless Tobacco: Never Alcohol Use Standard Drinks/Week Comments Never 0 (1 standard drink = 0.6 oz pur e alcohol) Sex and Gender Information Value Date Recorded Sex Assigned at Not on file Gender Identity Not on file Sexual Orientation Not on file Job Start Date Occupation Industry Not on file Not on file Not on file documented as of this encounter Progress Notes * Nyasia Guzman RN - 09/25/2024 5:00 PM EST PT states her blood sugar is running high - read high on meter and + ketones in urine documented in this encounter Plan of Treatment Upcoming Encounters Date Type Department Care Team (Late Contact Info) Description 02/24/2025 3:30 PM EDT Office Visit [facility] Hematology Oncology [address] [place] [address] Nirmal Cooper MD [address] [place] [address] documented as of this encounter Visit Diagnoses Not on filedocumented in this encounter Care Teams Autocad Technician Relationship Specialty Start Date End Date Grisel Meraz MD [address] [place] [phone] PCP - General 09/16/22 documented as of this encounter
--- OUTSIDE RECORDS SUMMARY | 2024-09-25 17:26 | XMS_ITS | Encounter Summary ---
Author Organization [employer] Address [address] [place] [address] [address] [place] [address] Care Team Providers Care Rod Greaser Name Role Phone Gideon Meraz MD Primary Care Provider [phone] Reason for Referral * Hospital - Outpatient (Routine) - Authorized Specialty Diagnoses / Procedures Referred By Contac t Referred To Contact Diagnoses BETSY (obstructive sleep apnea) Procedures Polysomnography Gideon Meraz MD [address] [place] [address] Phone: tel: fax: [facility] Referral ID Status Reason Start Date Expiration Date V isits Requested Visits Authorized [id number] Authorized 09/05/2024 09/05/2025 1 1 Encounter Details Date Type Department Care Team ([facility] st Contact Info) Description 09/05/2024 1:20 PM EST Office Visit [facility] MED & PEDS [address] [place], [place] [phone] Gideon Meraz MD [address] [place] [address] Encounter for immunization (Primary Dx); Type 2 diabetes mellitus without complication, with long-term current use of insulin (CMS/HCC); Boils of multiple sites; BETSY (obstructive sleep apnea); Multiple joint pain; Diabetes mellitus, labile (CMS/HCC); Non-Hodgkin lymphoma of intra-abdominal lymph nodes, unspecified non-Hodgkin lymphoma type (CMS/HCC); Dietary counseling; Exercise counseling Social History Tobacco Use Types Packs/Day Years Used Date Smoking Tobacco: Never Passive Smoke Exposure: Never Smokeless Tobacco: Never Depression Answer Date Recorded Patient Health Questionnaire-9 Score 21 10/26/2022 Housing Stability Answer Date Recorded What is your housing situation today? I have ruiz haed 06/19/[address] you li [...] AM EDT documented as of this encounter Last Filed Vital Signs Vital Sign Reading Time Taken Comments Blood Pressure 92/70 09/05/2024 1:28 PM EST Pulse 92 09/05/2024 1:28 PM EST Temperature 36.6 ??C (97.8 ??F) 09/05/2024 1:28 PM ES T Respiratory Rate 20 09/05/2024 1:28 PM EST Oxygen Saturation - - Inhaled Oxygen Concentration - - Weight 73 kg (161 lb) 09/05/2024 1:28 PM EST Height 165.1 cm (5' 5 ) 09/05/2024 1:28 PM EST Body Mass Index 26.79 09/05/2024 1:28 PM EST documented in this encounter Progress Notes * Gideon Meraz MD - 09/05/2024 1:20 PM EST Subjective Patient ID: Za Mauro is a 54 y.o. adult who presents for follow up. Za is here for follow up. She has type 2 DM on insulin pump seen by endo at [facility] and lymphoma in remission.Was Seen by oncologist in August. Having anxiety with partner.wants to separate from her. Currently getting help through her therapist for this matter. States needs a new sleep study nilsa cpap machine is old and defective. Review of Systems Constitutional: Positive for fatigue. Negative for activity change, chills, fever and unexpected weight change. Respiratory: Negative for cough, shortness of breath and wheezing. Cardiovascular: Negative for chest pain, palpitations and leg swelling. Gastrointestinal: Negative for abdominal pain and blood in stool. Endocrine: Negative for polydipsia and polyuria. Genitourinary: Negative for decreased urine volume, difficulty urinating, dysuria and hematuria. Musculoskeletal: Negative for arthralgias and gait problem. Skin: Negative for color change and rash. Neurological: Negative for dizziness and headaches. Hematological: Negative for adenopathy. Psychiatric/Behavioral: Negative for dysphoric mood, hallucinations, sleep disturbance and suicidalideas. The patient is not nervous/anxious. Objective BP 92/70 (BP Location: Left arm, Patient Position: Sitting, BP Cuff Size: Adult) Pulse 92 Temp 97.8 ??F (36.6 ??C) (Oral) Resp 20 Ht 5' 5 (1.651 m) Wt 161 lb (73 kg) BMI 26.79 kg/m?? Physical Exam Vitals reviewed. Constitutional: General: Za is not in acute distress. Appearance: Normal appearance. Za is normal weight. Za is not ill-appearing. HENT: Head: Normocephalic. Eyes: Pupils: Pupils are equal, round, and reactive to light. Cardiovascular: Rate and Rhythm: Normal rate and regular rhythm. Heart sounds: Normal heart sounds. No murmur heard. Pulmonary: Effort: Pulmonary effort is normal. Breath sounds: Normal breath sounds. Musculoskeletal: Right lower leg: No edema. Left lower leg: No edema. Neurological: Mental Status: Za is oriented to person, place, and time. Mental status is at baseline. Psychiatric: Mood and Affect: Mood normal. Behavior: Behavior normal. Assessment/Plan Diagnoses and all orders for this visit: Encounter for immunization Comments: Flu and shingrix vaccines recieved today. Orders: - FLU VACCINE TRIVALENT (Fluarix) 6 mo + Type 2 diabetes mellitus without complication, with long-term current use of insulin ([facility]) - POCT Glucose - POCT HGB A1C - Culture, Nasal; Future Boils of multiple sites Comments: Skin lesions healed.Nasal culture done today,Mupirocin script sent as well. Orders: - Culture, Nasal; Future BETSY (obstructive sleep apnea) Comments: Needs a new cpap machine,new sleep study ordered for patient. Orders: - Polysomnography; Future Multiple joint pain - traMADol (Ultram) 50 MG tablet; Take 1 tablet (50 mg) by mouth every 6 (six) hours if needed for severe pain for up to 10 days. Diabetes mellitus, labile ([facility]) Comments: Uncontrolled,latest A1c was around 8. Back up at 9 today.Followed closely by endo at [facility].Insulin pump back on soon.Continue as per endo. Non-Hodgkin lymphoma of intra-abdominal lymph nodes, unspecified non-Hodgkin lymphoma type ([facility]) Dietary counseling Exercise counseling Other orders - zoster vaccine-recombinant adjuvanted (Shingrix) 50 MCG/0.5ML vaccine; Inject 0.5 mL (50 mcg) into the muscle 1 (one) time for 1 dose. - mupirocin (Bactroban) 2 % ointment; Apply topically 2 times daily for 10 days. documented in this encounter Miscellaneous Notes * Addendum Note - Gideon Meraz MD - 09/05/2024 1:20 PM ESTAddended by: GIDEON MREAZ on: 09/06/2024 01:30 PM Modules accepted: Orders * Addendum Note - Maria L Lopez RN - 09/05/2024 1:20 PM ESTAddended by: MARIA L LOPEZ on: 09/06/2024 02:10 PM Modules accepted: Orders documented in this encounter Plan of Treatment Upcoming Encounters Date Type Department Care Team (Late st Contact Info) Description 10/31/2024 2:00 PM EST Nurse Only [facility] MED [facility] PEDS [address] [place], [place] [phone] 01/09/2025 3:00 PM EDT Office Visit [facility] OPTOMETRY [address] [place], [place] [phone] Flex, Antonella, OD [address] [place], [place] [phone] Scheduled Orders Name Type Priority Associated Diagnoses Orde r Schedule Culture, Nasal Microbiology Routine Type 2 diabetes mellitus without complication, with long-term current use of insulin ([facility]) Boils of multiple sites Expected: 09/05/2024 (Approximate), Expires: 09/05/2025 Polysomnography [facility] Routine BETSY (obstructive sleep apnea) Expected: 09/05/2024 (Approximate), Expires: 09/05/2025 documented as of this encounter Procedures Procedure Name Priority Date/Time Associated Diagnosis Comments POCT GLYCATED HEMOGLOBIN, TOTAL Routine 09/05/2024 1:57 PM EST Type 2 diabetes mellitus without complication, with long-term current use of insulin ([facility]) POCT GLUCOSE Routine 09/05/2024 1:57 PM EST Type 2 diabetes mellitus without complication, with long-term current use of insulin ([facility]) MRSA NASAL SCREEN Routine 09/05/2024 1:4 5 PM EST Boils of multiple sites documented in this encounter Results * (ABNORMAL) POCT HGB A1C (09/05/2024 1:57 PM EST) Hemoglobin A1C 9.2(A) 4.0 - 6.0 % QC Media Lot # [id number] Lot# Expiration Date [id number] Blood 09/05/2024 1:57 PM EST Gideon Meraz MD POINT OF CARE TEST ENTER/EDIT ORDERABLES Final Result * (ABNORMAL) POCT Glucose (09/05/2024 1:57 PM EST) Glucose Blood, POC 500(A) 60 - 200 mg/dL Comment:[facility] QC Media Lot # [id number] Lot# Expiration Date 482 Blood Capillary blood specimen / Unknown 09/05/2024 1:57 PM EST Gideon Meraz MD POINT OF CARE TEST ENTER/EDIT ORDERABLES Final Result * (ABNORMAL) MRSA Nasal Screen (09/05/2024 1:45 PM EST) MRSA Nasal PCR NEGATIVE Negative [facility] SA Nasal PCR POSITIVE(A) Negative [facility] MRSA Interpretation SEE NOTE [facility] Comment:MRSA target DNA not detected; SA target DNA detected.A MRSA NEGATIVE, SA POSITIVE test result does not precludeMRSA nasal colonization. Nares Nasal structure / Unknown 09/05/2024 1:45 PM EST 09/06/2024 1:44 PM EST Gideon Meraz MD LAB MICROBIOLOGY - GENERAL OR DERABLES Final Result [facility] [address] [place] [phone] documented in this encounter Visit Diagnoses Diagnosis Encounter for immunization- Primary Type 2 diabetes mellitus without complication, with long-term current use of insulin ([facility]) Boils of multiple sites BETSY (obstructive sleep apnea) Obstructive sleep apnea (adult) (pediatric) Multiple joint pain Pain in joint, multiple sites Diabetes mellitus, labile (CMS/HCC) Type II or unspecified type diabetes mellitus without mention of complication, not stated as uncontrolled Non-Hodgkin lymphoma of intra-abdominal lymph nodes, unspecified non-Hodgkin lymphoma type (CMS/HCC) Dietary counseling Dietary surveillance and counseling Exercise counseling documented in this encounter Additional Health Concerns Assessment Noted Time PHQ-9 Depression Total Score: 21 023 11:24 AM EST documented as of this encounter Care Teams Rod Greaser Relationship Specialty Start Date End Date Gideon Meraz MD [address] [place] [address] PCP - General Family Medicine 03/06/19 documented as of this encounter
--- OUTSIDE RECORDS SUMMARY | 2024-09-25 17:26 | XMS_ITS | Clinical Summary ---
Author Organization [facility] Address [address] [place] [address] Phone Care Team Providers Care Administrative Operations Coordinator Name Role Phone Grisel Meraz MD Primary Care Provider [phone] Allergies Active Allergy Reactions Criticality Noted Date Comments Hydrocodone Anaphylaxis High 01/24/2023 Oxycodone Shortness of breath High 01/18/2017 Other reaction(s): Unknown Medications Medication Sig Dispensed Refills Start Date End Date Status acetaminophen (TYLENOL) 500 mg tablet TOME DOS TABLETAS POR V A ORAL CADA OCHO HORAS 09/16/2022 Active allopurinoL (ZYLOPRIM) 300 mg tablet Take 1 tablet (300 mg total) by mouth 1 (one) time each day. 10/27/2022 Active fluticasone furoate (Arnuity Ellipta) 100 mcg/actuation blister with device inhaler INHLE 1 PUFF INTO THE LUNGS TWICE A DAY 12/21/2022 Active doxycycline (VIBRAMYCIN) 100 mg capsule Take 1 capsule (100 mg total) by mouth 2 (two) times a day. 05/24/2023 Active enoxaparin (LOVENOX) 40 mg/0.4 mL syringe 09/16/2022 Active fenofibrate (TRICOR) 48 mg tablet Take 1 tablet (48 mg total) by mouth daily. 12/25/2015 Active gabapentin (NEURONTIN) 300 mg capsule 09/14/2022 Active hydrOXYzine HCL (ATARAX) 50 mg tablet 09/15/2022 Active insulin glargine (Lantus Solostar U-100 Insulin) 100 unit/mL (3 mL) injection pen Inject 20 Units under the skin every night at bedtime. 10/08/2020 Active insulin lispro (HumaLOG KwikPen) 100 unit/mL injection pen INJECT 2 TO 16 UNITS SUBCUTANEOUSLY FOUR TIMES DAILY 09/25/2020 Active lidocaine-priloca ine (EMLA) 2.5-2.5 % cream Apply topically as needed. 11/21/2022 Active lisinopriL (PRINIVIL,ZESTRIL ) 2.5 mg tablet Take 1 tablet (2.5 mg total) by mouth 1 (one) time each day. 10/07/2020 Active loratadine (CLARITIN) 10 mg tablet Take 1 tablet (10 mg total) by mouth 1 (one) time each day. 2014 Active multivitamin tablet Take 1 tablet by mouth 1 (one) time each day. 07/08/2022 Active omega-3 fatty acids 1,000 mg capsule Take 1 capsule by mouth 1 (one) time each day in the morning. 05/05/2022 Active oxyBUTYnin XL (DITROPAN-XL) 5 mg 24 hr tablet Take 1 tablet orally daily 09/21/2022 Active pantoprazole (PROTONIX) 40 mg EC tablet Take 1 tablet (40 mg total) by mouth. 09/21/2022 Active pioglitazone (ACTOS) 30 mg tablet Take 1 tablet (30 mg total) by mouth daily. 06/10/2022 Active predniSONE (DELTASONE) 50 mg tablet Take 1 tablet (50 mg total) by mouth 2 (two) times a day. Taking on days 2-5 following each chemotherapy treatment day. Active rosuvastatin (CRESTOR) 40 mg tablet Take 1 tablet (40 mg total) by mouth 1 (one) time each day. 09/14/2022 Active senna-docusate (PERICOLACE) 8.6-50 mg per tablet Take 1 tablet by mouth daily. 11/30/2022 Active simethicone (MYLICON) 80 mg chewable tablet TOME ERENDIRA TABLETA POR V A ORAL CUATRO VECES AL D A CUANDO SEA NECESARIO FOR GAS PAIN/BLOATING 09/16/2022 Active ondansetron (ZOFRAN) 8 mg tablet Take 1 tablet (8 mg total) by mouth every 12 hours as needed. 10/27/2022 Active budesonide-formot Jasbir (Symbicort) 160-4.5 mcg/actuation inhaler 09/14/2022 Active topiramate (TOPAMAX) 25 mg tablet Take 1 tablet (25 mg total) by mouth 2 (two) times a day. 10/26/2015 Active traZODone (DESYREL) 50 mg tablet 09/14/2022 Active venlafaxine XR (EFFEXOR-XR) 150 mg 24 hr capsule Take 1 capsule (150 mg total) by mouth every morning. 09/14/2022 Active traMADoL (ULTRAM) 50 mg tablet Take 1 tablet (50 mg total) by mouth every 6 (six) hours if needed for severe pain. 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) 07/16/2024 10:52 PM EST - 07/17/2024 12:37 AM EST Emergency [facility] Emergency [address] [place] [address] Julio Schrader MD Abdominal wall abscess (Primary Dx) Discharge Disposition: Home or Self Care from Last 3 Months Immunizations Name Administration Dates Next Due Moderna SARS-CoV-2 COVID-19, mRNA, LNP-S, preservative free 02/11/2021,01/14/2021 Medical History Medical History Date Comments Diabetes mellitus (CMS/HCC) Colon cancer (CMS/HCC) Family History Medical History Relation Name Comments Cancer Mother Colon Relation Name Status Comments Mother (Age 68) Social History Tobacco Use Types Packs/Day Years [...] file Not on file Not on file Obstetrics History Last Filed Vital Signs Vital Sign Reading Time Taken Comments Blood Pressure 131/79 08/12/2024 3:25 PM EST Pulse 77 08/12/2024 3:25 PM EST Temperature 36.9 ??C (98.4 ??F) 08/12/2024 3:25 PM ES T Respiratory Rate 16 07/16/2024 10:34 PM EST Oxygen Saturation 100% 08/12/2024 3:25 PM EST Inhaled Oxygen Concentration - - Weight 75.3 kg (166 lb) 08/12/2024 3:25 PM EST Height 165.1 cm (5' 5 ) 07/16/2024 5:41 PM EST Body Mass Index 27.62 07/16/2024 5:41 PM EST Plan of Treatment Upcoming Encounters Date Type Department Care Team (Late st Contact Info) Description 02/24/2025 3:30 PM EDT Office Visit [facility] Hematology Oncology [address] [place] [phone] Nirmal Cooper MD [address] [place] [address] Health Maintenance Due Date Last Done Comments Breast Cancer Screening 1972 Diabetes: Annual Foot Exam 1982 Diabetes: Annual Retina Eye Exam 1982 Hepatitis B Vaccines (1 of 3 - 19+ 3-dose series) 1991 Zoster Vaccines (1 of 2) 1991 09/05/2024 Cervical Cancer Screening: Pap Smear 1993 Pneumococcal Vaccine: Pediatrics (0 to 5 Years) and At-Risk Patients (6 to 64 Years) (2 of 2 - PCV) 03/10/2015 03/10/2014 Colorectal Cancer Screening: Colonoscopy 08/16/2022 Medicare Annual Wellness Visit 08/16/2022 Social Influencers of Health Screening 08/16/2022 Depression Screening 10/26/2023 10/26/2022 COVID-19 Vaccine ( season) 2024 10/27/2022, 12/13/2021, 02/11/2021, Additional history exists Influenza Vaccine (#1) 2024 , 06/28/2023, 10/14/2020, Additional history exists Diabetes: Annual Urine Albumin-Creatinine Ratio (uACR) 07/17/2024 Diabetes: Blood Sugar Control Test (HGBA1C) 10/10/2024 09/05/2024, 04/09/2024, 12/03/2021 Diabetes: Annual GFR (Glomerular Filtration Rate) 08/06/2025 08/06/2024, 07/16/2024, 09/06/2023, Additional history exists Cholesterol Screening (Lipid Panel) 09/06/2028 09/06/2023, 09/06/2023 DTaP,Tdap,and Td Vaccines (5 - Td or Tdap) 10/06/2030 10/06/2020, 06/27/2018, 12/23/2016, Additional history exists HIV Screening Completed 12/03/2021, 12/03/2021 Hepatitis C Screening Completed 11/21/2022 HIB Vaccines Aged Out No longer eligi [...] on patient's age to complete this topic MMR Vaccines Aged Out No longer eligi ble based on patient's age to complete this topic Meningococcal ACWY Vaccine Aged Out N o longer eligible based on patient's age to complete this topic RSV Immunization Patients Under 20 months Aged Out No longer eligible based on patient's age to complete this topic Varicella Vaccines Aged Out No longer eligible based on patient's age to complete this topic Procedures Procedure Name Priority Date/Time Associated Diagnosis Comments CBC WITH AUTO DIFFERENTIAL Routine 08/06/2024 1:16 PM EST Leukosarcoma (CMS/HCC) BETA 2 MICROGLOBULIN, SERUM Routine 08/06/2024 1:16 PM EST Leukosarcoma (CMS/HCC) LACTATE DEHYDROGENASE Routine 08/06/2024 1:16 PM EST Leukosarcoma (CMS/HCC) CBC AND DIFFERENTIAL Routine 08/06/2024 1:16 PM EST Leukosarcoma (CMS/HCC) COMPREHENSIVE METABOLIC PANEL Routine 08/06/2024 1:16 PM EST Leukosarcoma (CMS/HCC) CULTURE WOUND WITH GRAM STAIN STAT 07/17/2024 12:22 AM EST HC I&D/DRAIN HEMATOMA/ABSCESS/CYST LEVEL1 Routine 07/17/2024 12:02 AM EST TN INCISION & DRAINAGE ABSCESS SIMPLE/SINGLE Routine 07/17/2024 12:02 AM EST LACTATE STAT 07/16/2024 6:31 PM EST CULTURE BLOOD STAT 07/16/2024 6:19 PM EST CBC WITH AUTO DIFFERENTIAL STAT 07/16/2024 6:18 PM EST BASIC METABOLIC PANEL STAT 07/16/2024 6:18 PM EST CBC AND DIFFERENTIAL STAT 07/16/2024 6:18 PM EST CULTURE BLOOD STAT 07/16/2024 6:18 PM EST LIPID PANEL Routine 09/06/2023 HM HEPATITIS C SCREENING Routine 11/21/2022 HM HIV SCREENING Routine 12/03/2021 HEMOGLOBIN A1C Routine 12/03/2021 from Last 3 Months or Most Recently Relevant to Health Maintenance Results * CBC auto differential (08/06/2024 1:16 PM EST) Only the most recent of2 resultswithin the time period is included. WBC 5.0 4.8 - 10.8 K/[facility] LAB HEMETOLOGY METHOD 08/06/2024 1:50 PM [facility] RBC 4.40 3.80 - 4.80 M/mcL LAB HEMETOLOGY METHOD 08/06/2024 1:50 PM [facility] Hemoglobin 12.9 11.5 - 16.0 g/dL LAB HEMETOLOGY METHOD 08/06/2024 1:50 PM [facility] Hematocrit 39.8 35.0 - 47.0 % LAB HEMETOLOGY METHOD 08/06/2024 1:50 PM [facility] MCV 90.9 79.0 - 98.0 FL LAB HEMETOLOGY METHOD 08/06/2024 1:50 PM [facility] MCH 29.5 27.0 - 32.0 pcg LAB HEMETOLOGY METHOD 08/06/2024 1:50 PM [facility] MCHC 32.4 32.0 - 37.0 g/dL LAB HEMETOLOGY METHOD 08/06/2024 1:50 PM [facility] RDW 12.4 11.0 - 15.0 % LAB HEMETOLOGY METHOD 08/06/2024 1:50 PM [facility] Platelets 244 130 - 400 K/mcL LAB HEMETOLOGY METHOD 08/06/2024 1:50 PM [facility] MPV 10.3 7.0 - 11.0 FL LAB HEMETOLOGY METHOD 08/06/2024 1:50 PM [facility] NRBC 0.0 <1.0 % LAB HEMETOLOGY METHOD 08/06/2024 1:50 PM [facility] NRBC Absolute 0.00 <0.10 K/mcL LAB HEMETOLOGY METHOD 08/06/2024 1:50 PM [facility] Neutrophils Relative 51.3 % LAB HEMETOLOGY METHOD 08/06/2024 1:50 PM [facility] Lymphocytes Relative 36.6 % LAB HEMETOLOGY METHOD 08/06/2024 1:50 PM [facility] Monocytes Relative 8.3 % LAB HEMETOLOGY METHOD 08/06/2024 1:50 PM [facility] Eosinophils Relative 2.4 % LAB HEMETOLOGY METHOD 08/06/2024 1:50 PM [facility] Basophils Relative 1.0 % LAB HEMETOLOGY METHOD 08/06/2024 1:50 PM [facility] Immature Granulocytes Relative 0.4 % LAB HEMETOLOGY METHOD 08/06/2024 1:50 PM [facility] Neutrophils Absolute 2.58 1.50 - 7.00 K/mcL LAB HEMETOLOGY METHOD 08/06/2024 1:50 PM [facility] Lymphocytes Absolute 1.84 1.00 - 5.00 K/mcL LAB HEMETOLOGY METHOD 08/06/2024 1:50 PM [facility] Monocytes Absolute 0.42 0.20 - 1.00 K/mcL LAB HEMETOLOGY METHOD 08/06/2024 1:50 PM [facility] Eosinophils Absolute 0.12 0.00 - 0.50 K/mcL LAB HEMETOLOGY METHOD 08/06/2024 1:50 PM [facility] Basophils Absolute 0.05 0.00 - 0.20 K/mcL LAB HEMETOLOGY METHOD 08/06/2024 1:50 PM [facility] Immature Granulocytes Absolute 0.02 0.00 - 0.03 K/mcL LAB HEMETOLOGY METHOD 08/06/2024 1:50 PM [facility] Blood Venous blood specimen / Unknown Venipuncture / Unknown 08/06/2024 1:16 PM EST 08/06/2024 1:41 PM EST Nirmal Cooper MD LAB BLOOD ORDERABLES Performing Organization Address [facility]/ZIP Co de Phone Number [facility] [address] [place] [address], * Lactate dehydrogenase (08/06/2024 1:16 PM EST) [facility] LDH 231 120 - 246 unit/L LAB CHEMISTRY METHOD 08/06/2024 2:19 PM EST [facility] Blood Venous blood specimen / Unknown Venipuncture / Unknown 08/06/2024 1:16 PM EST 08/06/2024 1:40 PM EST Nirmal Cooper MD LAB BLOOD ORDERABLES Performing Organization Address [facility] Co de Phone Number [facility] [address] [place] [address], [place] [phone] * Beta 2 microglobulin, serum (08/06/2024 1:16 PM EST) [facility] Beta-2 Microglobulin 1.4 0.7 - 1.8 mg/L LAB CHEMISTRY METHOD 08/06/2024 2:21 PM EST [facility] Blood Venous blood specimen / Unknown Venipuncture / Unknown 08/06/2024 1:16 PM EST 08/06/2024 1:40 PM EST Nirmal Cooper MD LAB BLOOD ORDERABLES Performing Organization Address City/[facility]/ZIP Co de Phone Number [facility] [address] [place] [address], [place] [phone] * (ABNORMAL) Comprehensive metabolic panel (08/06/2024 1:16 PM EST) [facility] Sodium 137 133 - 145 mmol/L LAB CHEMISTRY METHOD 08/06/2024 2:49 PM EST [facility] Potassium 4.3 3.5 - 5.5 mmol/L LAB CHEMISTRY METHOD 08/06/2024 2:49 PM [facility] Chloride 104 96 - 110 mmol/L LAB CHEMISTRY METHOD 08/06/2024 2:49 PM [facility] CO2 25 21 - 32 mmol/L LAB CHEMISTRY METHOD 08/06/2024 2:49 PM [facility] Anion Gap 8 3 - 11 LAB CHEMISTRY METHOD 08/06/2024 2:49 PM [facility] Glucose 310(H) 70 - 100 mg/dL LAB CHEMISTRY METHOD 08/06/2024 2:49 PM [facility] Comment:Results verified by repeat testing BUN 20 5 - 25 mg/dL LAB CHEMISTRY METHOD 08/06/2024 2:49 PM [facility] Creatinine 0.75 0.50 - 1.10 mg/dL LAB CHEMISTRY METHOD 08/06/2024 2:49 PM [facility] eGFR 97 >=60 mL/min/1. 73m2 LAB CHEMISTRY METHOD 08/06/2024 2:49 PM [facility] Comment:Calculation based on the??Chronic Kidney Disease Epidemiology Collaboration (CKD-EPI) equation refit??without adjustment for race. BUN/Creatinine Ratio 26.7 LAB CHEMISTRY METHOD 08/06/2024 2:49 PM [facility] Calcium 9.6 8.5 - 10.5 mg/dL LAB CHEMISTRY METHOD 08/06/2024 2:49 PM [facility] AST (SGOT) 41 10 - 42 unit/L LAB CHEMISTRY METHOD 08/06/2024 2:49 PM [facility] ALT (SGPT) 53 10 - 60 unit/L LAB CHEMISTRY METHOD 08/06/2024 2:49 PM [facility] Alkaline Phosphatase 99 42 - 121 unit/L LAB CHEMISTRY METHOD 08/06/2024 2:49 PM [facility] Total Protein 7.6 6.0 - 8.0 g/dL LAB CHEMISTRY METHOD 08/06/2024 2:49 PM EST [facility] Albumin 4.1 3.2 - 5.0 g/dL LAB CHEMISTRY METHOD 08/06/2024 2:49 PM [facility] Total Bilirubin 0.7 0.0 - 1.4 mg/dL LAB CHEMISTRY METHOD 08/06/2024 2:49 PM [facility] Blood Venous blood specimen / Unknown Venipuncture / Unknown 08/06/2024 1:16 PM EST 08/06/2024 1:40 PM EST Nirmal Cooper MD LAB BLOOD ORDERABLES [facility] [address] [place] [address], * (ABNORMAL) Culture wound with gram stain (07/17/2024 12:22 AM EST) Culture, Wound Methicillin-Sensiti ve Staphylococcus aureus(A) DOM 07/20/2024 10:49 AM [facility] Comment: Beta-lactamase negative The organism value for this result has been updated. These results have been appended to the previously preliminary verified report. Edited result: Previously reported as Staphylococcus aureus on 07/18/2024 at 1009 EST. Gram Stain Result Many Polymorphonuclear leukocytes(A) 07/20/2024 10:49 AM [facility] Gram Stain Result Rare Epithelial cells(A) 07/20/2024 10:49 AM [facility] Gram Stain Result Rare Gram positive cocci in pairs and clusters(A) 07/20/2024 10:49 AM [facility] Drainage (Abscess) 07/17/2024 12:22 AM EST 07/17/2024 12:27 AM EST Narrative Organism Antibiotic Method Susceptibility Methicillin-Sensitive Staphylococcus aureus Ampicillin DOM Susceptible Comment:This is an a ppended report. These results have been appended to a previously preliminary verified report. Methicillin-Sensitive Staphylococcus aureus Oxacillin DOM <=0.25 ug/ml: Susceptible Methicillin-Sensitive Staphylococcus aureus Gentamicin DOM <=0.5 ug/ml: Susceptible Methicillin-Sensitive Staphylococcus aureus Ciprofloxacin DOM <=0.5 ug/ml: Susceptible Methicillin-Sensitive Staphylococcus aureus Levofloxacin DOM 0.25 ug/ml: Susceptible Methicillin-Sensitive Staphylococcus aureus Moxifloxacin DOM <=0.25 ug/ml: Susceptible Methicillin-Sensitive Staphylococcus aureus Erythromycin DOM >=8 ug/ml: Resistant Methicillin-Sensitive Staphylococcus aureus Clindamycin DOM >=8 ug/ml: Resistant Methicillin-Sensitive Staphylococcus aureus Quinupristin/Dalfopristin DOM <=0.25 ug/ml: Susceptible Methicillin-Sensitive Staphylococcus aureus Linezolid DOM 2 ug/ml: Susceptible Methicillin-Sensitive Staphylococcus aureus Vancomycin DOM <=0.5 ug/ml: Susceptible Methicillin-Sensitive Staphylococcus aureus Tetracycline DOM <=1 ug/ml: Susceptible Methicillin-Sensitive Staphylococcus aureus Rifampin DOM <=0.5 ug/ml: Susceptible Methicillin-Sensitive Staphylococcus aureus Trimethoprim/Sulfamethoxa zole DOM <=10 ug/ml: Susceptible Julio Schrader MD LAB MICROBIOLOGY - [facility] ORDERABLES [facility] [address] [place] [address], * TN INCISION & DRAINAGE ABSCESS SIMPLE/SINGLE, HC I&D/DRAIN HEMATOMA/ABSCESS/CYST LEVEL1 (07/17/2024 12:02 AM EST) Julio Ford MD - 07/17/2024 12:02 AM EST Julio Schrader MD ? 07/19/2024 ??9:30 AM Incision and Drainage Date/Time: 07/17/2024 12:02 AM Performed by: Julio Schrader MD Authorized by: Julio Schrader MD ?? Consent: ??Consent obtained: ??Verbal ??Consent given by: ??Patient ??Risks, benefits, and alternatives were discussed: yes ?Risks, benefits, and alternatives were discussed comment: ??IPad conference interpreter was utilized for the entire discussion about the procedure, risk, benefits, alternatives, pain control, ??Risks discussed: ??Bleeding, pain and incomplete drainage ??Alternatives discussed: ??No treatment, delayed treatment, alternative treatment and observation Lerona protocol: ??Procedure explained and questions answered to patient or proxy's satisfaction: yes ?Test results available : yes ?Required blood products, implants, devices, and special equipment available: yes ?Site/side marked: yes ?Immediately prior to procedure, a time out was called: yes ?Patient identity confirmed: ??Verbally with patient, arm band and hospital-assigned identification number Location: ??Type: ??Abscess ??Size: ??Small to moderate ??Location: ??Trunk ??Trunk location: ??Abdomen Pre-procedure details: ??Skin preparation: ??Chlorhexidine Sedation: ??Sedation type: ??None Anesthesia: ??Anesthesia method: ??Local infiltration ??Local anesthetic: ??Lidocaine 2% WITH epi Procedure type: ??Complexity: ??Simple Procedure details: ??Ultrasound guidance: no ?Needle aspiration: no ?Incision types: ??Stab incision ??Incision depth: ??Dermal ??Wound management: ??Probed and deloculated, irrigated with saline and extensive cleaning ??Drainage: ??Bloody ??Drainage amount: ??Scant ??Wound treatment: ??Wound left open ??Packing materials: ??None Post-procedure details: ??Procedure completion: ??Tolerated well, no immediate complications Julio Schrader MD IN CLINIC/BEDSIDE OR DERABLES * Lactate (07/16/2024 6:31 PM EST) Lactate 1.2 0.4 - 2.0 mmol/L LAB CHEMISTRY METHOD 07/16/2024 7:00 PM EST [facility] Blood Venous blood specimen / Unknown Venipuncture / Unknown 07/16/2024 6:31 PM EST 07/16/2024 6:35 PM EST Julio Schrader MD LAB BLOOD ORDERABLES [facility] [address] [place] [address], * Blood Culture, Peripheral Draw #1 (07/16/2024 6:19 PM EST) Only the most recent of2 resultswithin the time period is included. Pathologist [facility] Culture, Blood No growth at 5 days 07/21/2024 7:01 PM [facility] Blood Venous blood specimen / Unknown Venipuncture / Unknown 07/16/2024 6:19 PM EST 07/16/2024 6:32 PM EST Julio Schrader MD LAB MICROBIOLOGY - G [facility] ORDERABLES [facility] [address] [place] [address], * (ABNORMAL) Basic metabolic panel (07/16/2024 6:18 PM EST) [facility] Sodium 137 133 - 145 mmol/L LAB CHEMISTRY METHOD 07/16/2024 6:57 PM [facility] Potassium 3.8 3.5 - 5.5 mmol/L LAB CHEMISTRY METHOD 07/16/2024 6:57 PM [facility] Chloride 106 96 - 110 mmol/L LAB CHEMISTRY METHOD 07/16/2024 6:57 PM [facility] CO2 28 21 - 32 mmol/L LAB CHEMISTRY METHOD 07/16/2024 6:57 PM [facility] Anion Gap 3 3 - 11 LAB CHEMISTRY METHOD 07/16/2024 6:57 PM [facility] Glucose 182(H) 70 - 100 mg/dL LAB CHEMISTRY METHOD 07/16/2024 6:57 PM [facility] BUN 12 5 - 25 mg/dL LAB CHEMISTRY METHOD 07/16/2024 6:57 PM [facility] Creatinine 0.66 0.50 - 1.10 mg/dL LAB CHEMISTRY METHOD 07/16/2024 6:57 PM [facility] eGFR 106 >=60 mL/min/1. 73m2 LAB CHEMISTRY METHOD 07/16/2024 6:57 PM EST [facility] Comment:Calculation based on the??Chronic Kidney Disease Epidemiology Collaboration (CKD-EPI) equation refit??without adjustment for race. BUN/Creatinine Ratio 18.2 LAB CHEMISTRY METHOD 07/16/2024 6:57 PM EST [facility] Calcium 9.3 8.5 - 10.5 mg/dL LAB CHEMISTRY METHOD 07/16/2024 6:57 PM EST [facility] Blood Venous blood specimen / Unknown 07/16/2024 6:18 PM EST 07/16/2024 6:22 PM EST Julio Schrader MD LAB BLOOD ORDERABLES [facility]) [facility] [address] [place] [address], * Lipid panel (09/06/2023) LDL/HDL Ratio 0 Triglycerides 0 mg/dL Cholesterol 0 mg/dL HDL 0 mg/dL LDL Cholesterol 0 mg/dL Blood Venous blood specimen / Unknown Historical Provider LAB BLOOD ORDERAB LES * Hepatitis C Screening (11/21/2022) Hepatitis C Screening Abstracted Historical Provider MD SHANNAN LOPEZ E * HIV Screening (12/03/2021) HIV Screening Abstracted Historical Provider MD CAMPBELL MAINERNESTO E * Hemoglobin A1c (12/03/2021) Hemoglobin A1C 0.0 % Blood Venous blood specimen / Unknown Historical Provider LAB BLOOD ORDERAB LES from Last 3 Months or Most Recently Relevant to Health Maintenance Care Teams Administrative Operations Coordinator Relationship Specialty Start Date End Date Grisel Meraz MD [address] [place] [id number] PCP - General 09/16/22
--- OUTSIDE RECORDS SUMMARY | 2024-09-25 17:26 | XMS_ITS | Encounter Summary ---
Author Organization [employer] Address [address] [facility] [address] [place] [address] Care Team Providers Care Warehouse Stock Clerk Name Role Phone Grisel Meraz MD Primary Care Provider [phone] Reason for Visit * Reason Onset Date Comments Record Request 04/05/2023 Encounter Details Date Type Department Care Team ([facility] Contact Info) Description 04/05/2023 Telephone [facility] CH[facility] MED & PEDS [address] [place] [address] Grisel Meraz MD [address] [place] [address] Record Request Social History Tobacco Use Types Packs/Day [...] encounter Miscellaneous Notes * Telephone Encounter - Za Randall - 04/05/2023 11:24 AM EDT TC from Michelle with [facility]. States had placed requests for physician Summary form , along with copies of last Physical , last office visit , and med list . documented in this encounter Plan of Treatment Upcoming Encounters Date Type Department Care Team (Late st Contact Info) Description 10/31/2024 2:00 PM EST Nurse Only [facility] CHC MED & PEDS [address] [place] [address] 01/09/2025 3:00 PM EDT Office Visit [facility] OPTOMETRY [address] [place], [place] [phone] Antonella Mccord, OD [address] [place] [address] documented as of this encounter Visit Diagnoses Not on filedocumented in this encounter Additional Health Concerns Assessment Noted Time PHQ-9 Depression Total Score: 21 023 11:24 AM EST documented as of this encounter Care Teams Warehouse Stock Clerk Relationship Specialty Start Date End Date Grisel Meraz MD [address] [place] [address] PCP - General Family Medicine 03/06/19 documented as of this encounter
--- OUTSIDE RECORDS SUMMARY | 2024-09-25 17:26 | XMS_ITS | Encounter Summary ---
Author Organization [employer] [facility] Address [address] [place] [address] 7 [place] [address] Care Team Providers Care Cargo Vessel Stewardess Name Role Phone Grisel Meraz MD Primary Care Provider Reason for Visit * Reason Comments Med Refill Encounter Details Date Type Department Care Team (Late Contact Info) Description 09/14/2022 Refill [facility] MEDICINE [address] [place] [address] Sadie Wayne MD [address] [place] [address] Social History Tobacco Use Types Packs/Day Years [...] Department Care Team (Late Contact Info) Description 10/31/2024 2:00 PM EST Nurse Only [facility] CHC MED & PEDS [address] [place], [place] [phone] 01/09/2025 3:00 PM EDT Office Visit [facility] OPTOMETRY [address] [place] [address] Antonella Mccord, OD [address] [place] [address] documented as of this encounter Visit Diagnoses Not on filedocumented in this encounter Care Teams Cargo Vessel Stewardess Relationship Specialty Start Date End Date Grisel Meraz MD [address] [place] [address] PCP - General Family Medicine 03/06/19 documented as of this encounter
== END 2024-09-25 15:35 | disposition home or self-care (01) ==
PROVIDERS: PCP Pediatrics; Visit Provider Nurse Practitioner Adult Health
DX: E11.65 Type 2 diabetes mellitus with hyperglycemia (principal); Z79.4 Long term (current) use of insulin
CPT/HCPCS: 99214; G2211

== ENCOUNTER → 2024-09-25 14:55 | Outpatient (BNVA) | payer OTHER, MEDICAID, SELFPAY | PROVIDERS: PCP Pediatrics; Visit Provider Nurse Practitioner Adult Health | DX: E11.65 Type 2 diabetes mellitus with hyperglycemia (principal); E11.40 Type 2 diabetes mellitus with diabetic neuropathy, unspecified; Z79.4 Long term (current) use of insulin | CPT/HCPCS: 81002; 82947 ==

== ENCOUNTER → 2024-10-09 15:22 | Outpatient (BNVA) | payer OTHER, MEDICAID, SELFPAY | PROVIDERS: PCP Pediatrics; Visit Provider Nurse Practitioner Adult Health | DX: E11.65 Type 2 diabetes mellitus with hyperglycemia (principal); Z79.4 Long term (current) use of insulin | CPT/HCPCS: 81002; 82947; 83036 ==

== ENCOUNTER 2024-10-18 15:00 | Outpatient (AMB) | payer OTHER, MEDICAID, SELFPAY ==
--- NOTE | 2024-10-18 09:27 | A.OFFVIS_ITS ---
Vital Signs 10/18/24 15:16 Height 5 ft 5 in Weight 165 lb 5.547 oz BMI 27.5 BP 118/72 Blood Pressure Location Rt brachial Position Sitting Pulse 83 Pulse Source Pulse Oximeter Intake Visit Reasons: DM Intake Note: Patient presents today for a follow-up on Type 1 Diabetes Mellitus: Patient back on the insulin pump iLet. Last Diabetic eye exam was on: DUE Last Podiatry exam was on: Does not see a Family Consumer Science Teacher Most recent HbA1c: 12.1%, 10/09/2024 Random Glucose: 129 mg/dL, Today Monogram And Letter Paster Required: Yes Monogram And Letter Paster Language: Passenger Service Representative Services: Monogram And Letter Paster Present Monogram And Letter Paster Name: YUSUF Linares/NEO MCKEON Information Interpreted: non-clinical & clinical Accompanied by: Self / Same As Patient Allergies acetaminophen [From Percocet] Allergy (Severe, Verified 10/09/24 15:30) Anaphylaxis oxycodone [From Percocet] Allergy (Severe, Verified 10/09/24 15:30) Anaphylaxis Vicodin Allergy (Unknown, Uncoded 10/09/24 15:30) Anaphylaxis HPI Comments Details: 53-year-old female Type 2 diabetic diagnosed approximately 2017 who is now back on an ilet insulin pump after a several month hiatus due to having had site infections at both the pump insertion set and sensor site. She was found to have nasal colonization of staph which was not MRSA and she was started on a Hibiclens wash once weekly and instructed to use antibacterial soap. Rigid sterile technique with inserting sensor and pump was reviewed with the patient extensively. She c/o mild swelling in her face without rash or hives On her last 2 visits she came to the clinic with the extremely high glucose. She was sent to [facility] on 1 of these visits and on the 2nd visit declined ER. At that time her sugar was 495 with negative ketones. She reported she had just drank a can of Coke before she came in. We are unable to download her pump report today. She reports she is in good range and announcing all of her meals to get preprandial insulin Current diabetes regime Back up off pump plan: :Lantus 46 units daily Humalog 10 for coffee if eating a meal takes 19 unitd twice john pioglitazone 30 mg Most recent A1c 10/09/2511.1%: 07/24/24 8.4% down from previous A1c 04/23/2024 11%. Denies retinopathy. Last exam: she has been referred but missed appt to [facility] Dr. Urbina She has rescheduled with another provider Has neuropathy: Symptoms: + numbness, tingling and cramping in legs No Nephropathy:09/2023 microalbumin 8.0 eGFR>60 on low dose radha-1 Has HLD on statin 09/06/23 110 Has stong family hx of Type 2 DM Exercise - walks . [facility] Medical History Cellulitis Right groin pain Arthritis Elevated LFTs Fibromyalgia Bunion, left foot Migraine Asthma Seasonal allergies Mood disorder Joint pain Hyperlipidemia LDL goal <100 Type 2 diabetes mellitus with polyneuropathy Type 2 diabetes mellitus with hyperglycemia Surgical History Hx of colonoscopy (~2018) Hx of cholecystectomy Hx of foot surgery History of bilateral carpal tunnel release Hx of cataract surgery Family History Father Hypertension Mother Diabetes Colon cancer Brother Liver cancer Social History Household Members: Other Household Members Other:: Sister Alcohol intake: current Alcohol intake frequency: does not drink Patient Tobacco Use Status: Never used Tobacco Physical Exam Vital Signs: Last Vital Signs Pulse 83 10/18/24 15:16 BP 118/72 10/18/24 15:16 BMI result Body Mass Index 27.5 Const Other: Absence of Cushingoid features. Absence of acromegalic features. Neck exam reveals nl size thyroid about 15 gms. No thyroid nodules palpable. No carotid bruits present. Lungs CTA. Heart S1 S2, Reg R/R. No M/R G. Skin exam reveals absence of vitiligo or acanthosis nigricans. very slight edema ankles, mild puffiness face without signs of infection, no involvement around eyes Results Reviewed Results Reviewed: Laboratory Last Values Glucose (Clinic) 129 mg/dL (60-115) H 10/18/24 15:19 Assessment & Plan Assessment & Plan (1) Type 2 diabetes mellitus with hyperglycemia: Code(s): E11.65 - Type 2 diabetes mellitus with hyperglycemia Category: Medical Qualifiers: Diabetes mellitus manager intermediate insulin use: with manager intermediate use Qualified Code(s): E11.65 - Type 2 diabetes mellitus with hyperglycemia; Z79.4 - skilled nursing (current) use of insulin Plan: 54-year-old type 2 diabetic with neuropathy on an islet insulin pump. The pump was just restarted last week after a several month hiatus due to multiple site infections. Her numbers have improved. she will f/u with cde in one week for trouble shooting on why pump will not download I will see her back in 4weeks she has a trace of swelling in her ankles, minimal facial. She was asked to reduce her salt ad f/u with her pcp The patient was instructed to do a Hibiclens shower from neck to feet once wee kly and to use an antibacterial soap and strict Coding Level of Care Code Est Pt Level 4 (46914) Complex EM visit Add On G2211 Diagnoses Type 2 diabetes mellitus with hyperglycemia, with long-term current use of insulin E11.65; Z79.4 Diabetes mellitus half-way insulin use: with manager intermediate use Time Spent (min) 30 Comment Time spent reviewing labs/provider notes, face to face, chart doc
--- OUTSIDE RECORDS SUMMARY | 2024-10-18 15:02 | XMS_ITS | Encounter Summary ---
Author Organization [employer] Address [address] [place] [address] Care Team Providers Care Maintenance Supervisor Electrical Name Role Phone Grisel Meraz MD Primary Care Provider [phone] Encounter Details Date Type Department Care Team ([facility] st Contact Info) Description 07/11/2023 Abstract [facility] MEDICINE [address] [place] [address] Grisel Meraz MD [address] [place], [place] [phone] Social History Tobacco Use Types Packs/Day Years [...] 2:00 PM EST Nurse Only [facility] CHC MED & PEDS [address] [place], [place] [phone] 01/09/2025 3:00 PM EDT Office Visit [facility] OPTOMETRY [address] [place], [place] [phone] Flex, Antonella, OD [address] [place], [place] [phone] documented as of this encounter Procedures Procedure [...] documented as of this encounter Care Teams Maintenance Supervisor Electrical Relationship Specialty Start Date End Date Grisel Meraz MD [address] [place], [place] [phone] PCP - General Family Medicine 03/06/19 documented as of this encounter
--- OUTSIDE RECORDS SUMMARY | 2024-10-18 15:02 | XMS_ITS | Encounter Summary ---
Author Organization [employer] Address [address] [facility] 7 [place] [address] Care Team Providers Care Financial Planning Consultant Name Role Phone Grisel Meraz MD Primary Care Provider [phone] Reason for Visit * Reason Onset Date Comments Record Request 04/05/2023 Encounter Details Date Type Department Care Team ([facility] Contact Info) Description 04/05/2023 Telephone [facility] CHC MED & PEDS [address] [place] [address] Grisel Meraz MD [address] [place] [address] Record Request Social History Tobacco Use Types [...] 11:24 AM EDT TC from Michelle with [facility]. States had placed requests for physician Summary form , along with copies of last Physical , last office visit , and med list . documented in this encounter Plan of Treatment Upcoming Encounters Date Type Department Care Team (Late st Contact Info) Description 10/31/2024 2:00 PM EST Nurse Only [facility] CHC MED & PEDS [address] [place] [address] 01/09/2025 3:00 PM EDT Office Visit [facility] OPTOMETRY [address] [place], [place] [phone] Antonella Mccord, OD [address] [place] [address] documented as of this encounter Visit Diagnoses Not on filedocumented in this encounter Additional Health Concerns Assessment Noted Time PHQ-9 Depression Total Score: 21 023 11:24 AM EST documented as of this encounter Care Teams Financial Planning Consultant Relationship Specialty Start Date End Date Grisel Meraz MD [address] [place] [address] PCP - General Family Medicine 03/06/19 documented as of this encounter
--- OUTSIDE RECORDS SUMMARY | 2024-10-18 15:02 | XMS_ITS | Clinical Summary ---
Author Organization [facility] Address [address] [place] [address] Care Team Providers Care Physician'S Aide Name Role Phone Grisel Meraz MD Primary Care Provider [phone] Allergies Active Allergy Reactions Criticality Noted Date Comments Hydrocodone Anaphylaxis High 01/24/2023 Oxycodone Shortness Of Breath High 01/18/2017 Other reaction(s): Unknown Medications Medication Sig Dispensed Refills Start Date End Date Status acetaminophen (TYLENOL EXTRA STRENGTH) 500 MG tablet TOME DOS TABLETAS POR V A ORAL CADA OCHO HORAS 0 09/16/2022 Active Symbicort 160-4.5 MCG/ACT inhaler 0 09/14/2022 Active enoxaparin (LOVENOX) 40 MG/0.4ML SOSY 0 09/16/2022 Active fenofibrate (TRICOR) tablet 48 mg Take 1 tablet (48 mg total) by mouth daily. 0 12/25/2015 Active gabapentin (NEURONTIN) 300 MG capsule 0 09/14/2022 Active hydrOXYzine (ATARAX) 50 MG tablet 0 09/15/2022 Active insulin glargine (Lantus SoloStar) 100 UNIT/ML injection Inject 20 Units under the skin every night at bedtime. 0 10/08/2020 Active Insulin Lispro, 1 Unit Dial, 100 UNIT/ML SOPN INJECT 2 TO 16 UNITS SUBCUTANEOUSLY FOUR TIMES DAILY 0 09/25/2020 Active lisinopril (PRINIVIL,ZESTRIL ) tablet 2.5 mg Take 1 tablet (2.5 mg total) by mouth daily. 0 10/07/2020 Active loratadine (CLARITIN) 10 MG tablet Take 1 tablet (10 mg total) by mouth daily. 0 08/08/2022 Active Multiple Vitamin (Multivitamin) TABS Take 1 tablet by mouth daily. 0 07/08/2022 Active [place]-3 Fatty Acids (Fish Oil) 1000 MG CAPS Take 1 capsule by mouth every morning. 0 05/05/2022 Active oxybutynin (DITROPAN-XL) 5 MG 24 hr tablet Take 1 tablet orally daily 0 09/21/2022 Active pantoprazole (PROTONIX) 40 MG tablet Take 1 tablet (40 mg total) by mouth. 0 09/21/2022 Active pioglitazone (ACTOS) tablet 30 mg Take 1 tablet (30 mg total) by mouth daily. 0 06/10/2022 Active rosuvastatin (CRESTOR) tablet 40 mg Take 1 tablet (40 mg total) by mouth daily. 0 09/14/2022 Active simethicone (MYLICON) 80 MG chewable tablet TOME ERENDIRA TABLETA POR V A ORAL CUATRO VECES AL D A CUANDO SEA NECESARIO FOR GAS PAIN/BLOATING 0 09/16/2022 Active topiramate (TOPAMAX) 25 MG tablet Take 1 tablet (25 mg total) by mouth 2 (two) times a day. 0 10/26/2015 Active traZODone (DESYREL) 50 MG tablet 0 09/14/2022 Active venlafaxine (EFFEXOR-XR) 150 MG 24 hr capsule Take 1 capsule (150 mg total) by mouth every morning. 0 09/14/2022 Active allopurinol (ZYLOPRIM) 300 MG tablet Take 1 tablet (300 mg total) by mouth daily. 14 tablet 0 10/27/2022 Active ondansetron (ZOFRAN) 8 MG tablet Take 1 tablet (8 mg total) by mouth every 12 (twelve) hours as needed for nausea. 20 tablet 0 10/27/2022 Active lidocaine-priloca ine (EMLA) cream Apply topically as needed. 30 g 0 11/21/2022 Active senna-docusate (PERICOLACE) 8.6-50 MG Take 1 tablet by mouth daily. 60 tablet 1 11/30/2022 Active Arnuity Ellipta 100 MCG/ACT AEPB INHLE 1 PUFF INTO THE LUNGS TWICE A DAY 30 each 2 12/21/2022 Active predniSONE (DELTASONE) 50 MG tablet Take 1 tablet (50 mg total) by mouth 2 (two) times a day. Taking on days 2-5 following each chemotherapy treatment day. 0 Active doxycycline (VIBRAMYCIN) 100 MG capsule Take 1 capsule (100 mg total) by mouth 2 (two) times a day. 14 capsule 0 05/24/2023 Active traMADol (ULTRAM) 50 MG tablet Take 50 mg by mouth every 6 (six) hours as needed. for pain 64 tablet 2 04/10/2024 Active Active Problems Problem Noted Date Diagnosed Date Non-Hodgkin's lymphoma 09/29/2022 Family History Medical History Relation Name Comments Cancer Mother Colon Relation Name Status Comments Mother (Age 68) Social History Tobacco Use Types Packs/Day Years Used Date Smoking Tobacco: Never Smokeless Tobacco: Never Tobacco Cessation:Counseling Given: Not Answered Alcohol Use Standard Drinks/Week Comments Never 0 (1 standard drink = 0.6 oz pur e alcohol) Sex and Gender Information Value Date Recorded Sex Assigned at Female 09/16/2022 11:36 AM EST Gender Identity Not on file Sexual Orientation Not on file Job Start Date Occupation Industry Not on file Not on file Not on file Last Filed Vital Signs Vital Sign Reading Time Taken Comments Blood Pressure 114/76 04/10/2024 2:58 PM EDT Pulse 78 04/10/2024 2:58 PM EDT Temperature 36.2 ??C (97.2 ??F) 04/10/2024 2:58 PM ED T Respiratory Rate 18 02/14/2023 9:00 AM EDT Oxygen Saturation 98% 04/10/2024 2:58 PM EDT Inhaled Oxygen Concentration - - Weight 68.8 kg (151 lb 9.6 oz) 04/10/2024 2:58 P M EDT Height 170.2 cm (5' 7 ) 12/19/2023 2:49 PM EDT Body Mass Index 23.74 12/19/2023 2:49 PM EDT Plan of Treatment Health Maintenance Due Date Last Done Comments Hepatitis B Vaccines (1 of 3 - 3-dose series) 1972 Depression Screening 1984 Preventative Health Evaluation 1990 Shingrix-Zoster Vaccine (1 of 2) 1991 Cervical Cancer Screening (Pap Smear) 1993 Pneumococcal Vaccine (2 of 2 - PCV) 03/10/2015 03/10/2014 Colon Cancer Screening (Colonoscopy) 2017 COVID-19 Vaccine (3 - Moderna risk series) 03/11/2021 02/11/2021, 01/14/2021 Breast Cancer Screening (Mammogram) 2022 Influenza Vaccine (#1) 2024 , 10/14/2020, 05/30/2019, Additional history exists DTap / Tdap / Td (5 - Td or Tdap) 10/06/2030 10/06/2020, 06/27/2018, 12/23/2016, Additional history exists Hepatitis C Screening Completed 11/21/2022 RSV Ped < 20 months Aged Out No longe r eligible based on patient's age to complete this topic Care Teams Physician'S Aide Relationship Specialty Start Date End Date Grisel Meraz MD [address] [place], [place] [phone] PCP - General Pediatrics 09/16/22
--- OUTSIDE RECORDS SUMMARY | 2024-10-18 15:02 | XMS_ITS | Encounter Summary ---
Author Organization [email or web address] [facility] Address [address] [place] [address] 7 [place] [address] Care Team Providers Care Strip Cutting Machine Operator Name Role Phone Grisel Meraz MD Primary Care Provider [phone] Encounter Details Date Type Department Care Team (Latest Contact Info) Description 07/06/2022 Abstract [facility] CONVERSIONS Dental, Provider, DDS Social History Tobacco [...] Description 10/31/2024 2:00 PM EST Nurse Only [facility] CHC MED & PEDS [address] [place] [address] 01/09/2025 3:00 PM EDT Office Visit [facility] OPTOMETRY [address] [place] [address] Flex, Antonella, OD [address] [place] [address] documented as of this encounter Visit Diagnoses Not on filedocumented in this encounter Care Teams Strip Cutting Machine Operator Relationship Specialty Start Date End Date Grisel Meraz MD [address] [place] [address] PCP - General Family Medicine 03/06/19 documented as of this encounter
--- OUTSIDE RECORDS SUMMARY | 2024-10-18 15:02 | XMS_ITS ---
Author Organization [facility] Address [address] [place] [address] Care Team Providers Care Fountain Server Name Role Phone Grisel Meraz MD Primary Care Provider [phone] Active Problems Problem Noted Date Diagnosed Date Non-Hodgkin's lymphoma 09/29/2022 Current Oncology Plans No current plan information found. Past Plans ONCOLOGY TREATMENT Plan Name Start Date Discontinue Date Treatment Medications Discontinue Reason Plan Provider Cycles [facility] BCN OP R-CHOP [id number] (R IV/SC) 3 11/07/2023 acetaminophen (TYLENOL)albuterol (PROVENTIL)cycloPHOSpham [place] (CYTOXAN) chemo infusiondexamethasone (DECADRON)diphenhydrAMIN E (BENADRYL)DOXOrubicin (ADRIAMYCIN)EPINEPHrinef amotidine (PF) (PEPCID)hydrocortisone (SOLU-CORTEF) IVLORazepam (ATIVAN)meperidine (DEMEROL) 25 MG/MLpalonosetron (ALOXI)pegfilgrastim (biosimilar orderable)pegfilgrastim- jmdb (FULPHILA)predniSONE (DELTASONE)riTUXimab (RITUXAN) infusion (Outpatient record)riTUXimab-pvvr (RUXIENCE) infusion (Outpatient record)Saline Flush 0.9 %sodium chloride (NS) 0.9 %sodium chloride 0.9% bolus (NS)vinCRIStine (ONCOVIN) chemo infusionZZ EXTEMPORANEOUS TEMPLATE Therapy Complete Nirmal Cooper MD 6 of 6 cycles started Radiation Treatments * No radiation treatments are documented for this patient in [facility]. Treatments may have been administered in another system. Lifetime Dose Tracking * Chemical Lifetime Dose Automatic Entry Manual Entr y Doxorubicin 297.672 mg/m2 (504 mg) 297.672 mg/m2 (504 mg) 0 mg/m2 (0 mg)
--- OUTSIDE RECORDS SUMMARY | 2024-10-18 15:02 | XMS_ITS | Encounter Summary ---
Author Organization [employer] Address [address] [facility] 7 [place] [address] Care Team Providers Care Tooling Manager Name Role Phone Grisel Meraz MD Primary Care Provider [phone] Reason for Visit * Reason Onset Date Comments FYI 09/14/2022 Encounter Details Date Type Department Care Team ([facility] Contact Info) Description 09/14/2022 Telephone [facility] MEDICINE [address] [place] [address] Grisel Meraz MD [address] [place], [place] [phone] FY Social History Tobacco Use Types Packs/Day [...] message as a FYI. Please contact at [phone] documented in this encounter Plan of Treatment Upcoming Encounters Date Type Department Care Team (Late st Contact Info) Description 10/31/2024 2:00 PM EST Nurse Only [facility] CHC MED & PEDS [address] [place] [address] 01/09/2025 3:00 PM EDT Office Visit [facility] OPTOMETRY [address] [place], [place] [phone] Antonella Mccord, OD [address] [place] [address] documented as of this encounter Visit Diagnoses Diagnosis Type 2 diabetes mellitus with hyperglycemia, with long-term current use of insulin ([facility])- Primary documented in this encounter Care Teams Tooling Manager Relationship Specialty Start Date End Date Grisel Meraz MD [address] [place] [address] PCP - General Family Medicine 03/06/19 documented as of this encounter
--- OUTSIDE RECORDS SUMMARY | 2024-10-18 15:02 | XMS_ITS | Clinical Summary ---
Author Organization [employer] Address 75 [facility] 7t [place] [address] Care Team Providers Care Electric Truck Operator Name Role Phone Grisel Meraz MD Primary Care Provider [phone] Allergies Active Allergy Reactions Criticality Noted Date [...] tablets by mouth every 8 (eight) hours. 023 Active hydrOXYzine HCl (Atarax) 50 MG tablet Take 1 tablet by mouth at bedtime. 023 Active miconazole (Micotin) 2 % vaginal cream INSERT ONE APPLICATORFUL VAGINALLY AT BEDTIME 022 Active omega-3 (Fish Oil) 1000 MG capsule Take 1 capsule by mouth in the morning. 022 Active polyethylene glycol, PEG, 3350 (Miralax) 17 g packet MIX 1 PACKET IN 8 OUNCES OF WATER, JUICE,SODA, COFFEE, OR TEA DAILY NEEDED FOR CONSTIPATION 023 Active Senna-Plus 8.6-50 MG tablet Take 1 tablet by mouth 2 times daily. As needed for constipation 023 Active simethicone (Mylicon) 80 MG chewable tablet CHEW ONE TABLET FOUR TIMES DAILY NEEDED FOR BLOATING Active traZODone (Desyrel) 50 MG tablet Take 1 tablet by mouth at bedtime. 023 Active venlafaxine XR (Effexor XR) 150 MG 24 hr capsule Take 1 capsule by mouth in the morning. 023 Active Lantus SoloStar 100 UNIT/ML penIndications:T ype 2 diabetes mellitus without complication, with long-term current use of insulin (CMS/HCC) Inject 30 Units under the skin at bedtime. 3 mL 023 Active TRUEplus Lancets 33G misc TEST BLOOD SUGAR FOUR TIMES DAILY 100 each 023 Active Alcohol Swabs (Alcohol Prep) 70 % pads Use 4 x a day as needed 100 each 023 Active BD Pen Needle Tania U/F 32G X 4 MM misc Inject under the skin 4 times daily. Use as instructed 100 each 023 Active Blood Glucose Monitoring Suppl (Bioscience Vaccines) w/Device kit CHECK BLOOD SUGAR FOUR TIMES DAILY 1 kit 023 Active ARIPiprazole (Abilify) 5 MG tablet 023 Active Continuous Blood Gluc Sensor (Dexcom G6 Sensor) misc 1 kit continuously. 1 each 3 023 Active fluconazole (Diflucan) 100 MG tablet Take 1 tablet (100 mg) by mouth in the morning. 1 tablet 1 023 Active Estrogens Conjugated (Premarin) 0.625 MG/GM cream Insert 1 Applicatorful into the vagina 1 (one) time per week. 30 g 023 Active traMADol (Ultram) 50 MG tabletIndication s:B-cell lymphoma of intra-abdominal lymph nodes, unspecified B-cell lymphoma type (CMS/HCC) TAKE ONE TABLET BY MOUTH TWICE DAILY NEEDED 20 tablet 023 Active HumaLOG KWIKPEN 100 UNIT/ML injectionIndicat ions:Type 2 diabetes mellitus with hyperglycemia (CMS/HCC),correction (current) use of insulin (CMS/HCC) INJECT 2 TO 16 UNITS SUBCUTANEOUSLY FOUR TIMES DAILY 15 mL 6 023 Active insulin aspart FlexPen (NovoLOG) 100 UNIT/ML pen Use 10 units subcutaneously premeals tid or as per sliding scale 15 mL 023 Active OneTouch Verio test stripIndications :Type 2 diabetes mellitus without complications ([facility]) TEST BLOOD SUGAR FOUR TIMES DAILY 100 strip Active mometasone-formo terol (Dulera 200) 200-5 MCG/ACT inhaler Inhale 2 puffs in the morning and at bedtime. Rinse mouth with water after use to reduce aftertaste and incidence of candidiasis. Do not swallow. 13 g Active Multiple Vitamin (Multivitamin) tabletIndication s:Type 2 diabetes mellitus without complication, with long-term current use of insulin ([facility]) TAKE ONE TABLET EVERY MORNING 100 tablet Active rosuvastatin (Crestor) 40 MG tablet TAKE ONE TABLET EVERY MORNING 30 tablet Active lisinopril 2.5 MG tablet TAKE ONE TABLET EVERY MORNING 30 tablet Active oxybutynin XL (Ditropan-XL) 5 MG 24 hr tabletIndication s:Type 2 diabetes mellitus with hyperglycemia, with long-term current use of insulin ([facility]) TAKE ONE TABLET EVERY MORNING 30 tablet Active pantoprazole (ProtoNix) 40 MG EC tabletIndication s:Type 2 diabetes mellitus with hyperglycemia, with long-term current use of insulin ([facility]) TAKE ONE TABLET EVERY MORNING 30 tablet Active pioglitazone (Actos) 15 MG tablet TAKE ONE TABLET EVERY MORNING 30 tablet Active gabapentin (Neurontin) 300 MG capsule TAKE ONE CAPSULE TWICE DAILY IN THE MORNING AND AT BEDTIME 180 capsule 3 Active budesonide-formo terol (Symbicort) 160-4.5 MCG/ACT inhaler Active cloNIDine (Catapres) 0.1 MG tablet TAKE ONE TABLET TWICE DAILY IN THE MORNING AND AT BEDTIME NEEDED FOR SLEEP OR FOR ANXIETY Active loratadine (Claritin) 10 MG tablet TAKE ONE TABLET EVERY MORNING 90 tablet 1 025 Active loratadine (Claritin) 10 MG tablet TAKE 1 TABLET EVERY MORNING 90 tablet 024 2024 Discontinued Active Problems Problem Noted Date Diagnosed Date Diabetes mellitus, labile 09/05/2024 Non-Hodgkin's lymphoma 09/29/2022 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 09/26/2022 Bunion 06/27/2018 Hyperlipidemia 06/27/2018 Migraine 06/27/2018 Mild intermittent asthma 06/27/2018 Mood disorder 06/27/2018 Multiple joint pain 06/27/2018 Seasonal allergies 06/27/2018 Type 2 diabetes mellitus without complication Encounters Date Type Department Care Team Description 10/16/2024 Refill [facility] [address] [place] [address] Grisel Meraz MD 10/09/2024 Orders Only GENERIC EXTERNAL DATA DEPARTMENT Provider, Generic External Data 09/27/2024 Orders Only [facility] [employer] [address] [place] [address] ProviderSilverio MD 09/25/2024 Orders Only GENERIC EXTERNAL DATA DEPARTMENT Provider, Generic External Data 09/06/2024 Orders Only [facility] [address] [place] [address] Grisel Meraz MD Boils of multiple sites (Primary Dx) 09/06/2024 Telephone [facility] [address] [place] [phone] Brigette Hubbard, sheet metal contractor Orders 09/05/2024 1:20 PM EST Office Visit [facility] [address] [place] [address] Grisel Meraz MD Encounter for immunization (Primary Dx); Type 2 diabetes mellitus without complication, with long-term current use of insulin (CMS/HCC); Boils of multiple sites; BETSY (obstructive sleep apnea); Multiple joint pain; Diabetes mellitus, labile (CMS/HCC); Non-Hodgkin lymphoma of intra-abdominal lymph nodes, unspecified non-Hodgkin lymphoma type (CMS/HCC); Dietary counseling; Exercise counseling 09/05/2024 Travel 09/02/2024 Travel 08/16/2024 Refill [facility] [address] [place] [address] Grisel Meraz MD 08/06/2024 Travel 07/31/2024 Telephone [facility] [address] [place] [address] Grisel Meraz MD No Show 07/30/2024 Orders Only GENERIC EXTERNAL DATA DEPARTMENT Provider, Generic External Data 07/29/2024 Telephone [facility] [address] [place] [address] Grisel Meraz MD Chart Prep from Last 3 Months Immunizations Name Administration [...] Description 10/31/2024 2:00 PM EST Nurse Only [facility] [address] [place] [address] 01/09/2025 3:00 PM EDT Office Visit [facility] [address] [place] [address] Flex, Antonella, OD [address] [place] [address] Health Maintenance Due Date Last Done Comments CT Colonography 1972 Dental Prophylaxis 1972 FIT DNA/Cologuard 1972 FIT 1972 FOBT 1972 Sigmoidoscopy 1972 Diabetes: Foot Exam 1982 Eye Exam 1982 Alcohol/Substance Use Screening 1984 Family Planning (PISQ) 1987 Hepatitis B Vaccines (1 of 3 - 19+ 3-dose series) 1991 Pap Smear 1993 Pneumococcal Vaccine: 50+ Years (2 of 2 - PCV) 03/10/2015 03/10/2014 [...] Additional history exists Tobacco Screening 09/05/2025 09/05/2024 Mammogram 11/15/2025 11/16/2023 DTaP/Tdap/Td Vaccines (5 - Td or Tdap) [...] Associated Diagnosis Comments GLUCOSE, WHOLE BLOOD Routine 10/09/2024 3:32 PM EST XR CHEST 2 VIEWS Routine 09/26/2024 9:20 AM EST GLUCOSE, WHOLE BLOOD Routine 09/25/2024 3:08 PM EST POCT GLYCATED HEMOGLOBIN, TOTAL Routine 09/05/2024 1:57 PM EST Type 2 diabetes mellitus without complication, with long-term current use of insulin (CMS/HCC) POCT GLUCOSE Routine 09/05/2024 1:57 PM EST Type 2 diabetes mellitus without complication, with long-term current use of insulin (CMS/HCC) MRSA NASAL SCREEN Routine 09/05/2024 1:4 5 PM EST Boils of multiple sites GLUCOSE, WHOLE BLOOD Routine 07/30/2024 3:43 PM EST BI MAMMOGRAM SCREENING BILATERAL Routine 11/16/2023 Encounter for screening mammogram for malignant neoplasm of breast ALBUMIN, RANDOM URINE W/CREATININE Routine 09/06/2023 11:30 AM EST LIPID PANEL, STANDARD Routine 09/06/2023 11:30 AM EST BITEWINGS - 4 RADIOGRAPHIC IMAGES Routine 07/06/2022 12:00 AM EDT KAREN HISTORICAL HEPATITIS C AB W/REFL TO HCV RNA, QN, PCR Routine 12/03/2021 12:00 AM EDT HIV 1/2 ANTIGEN/ANTIBODY, FOURTH GENERATION W/RFL Routine 12/03/2021 12:00 AM EDT INTRAORAL - COMPLETE SERIES OF RADIOGRAPHIC IMAGES Routine 07/17/2019 12:00 AM EST COMPREHENSIVE ORAL EVALUATION - NEW OR ESTABLISHED PATIENT Routine 07/17/2019 12:00 AM EST ZZZ HISTORICAL HPV E6/E7 RFLX SONIA 16 18/45 Routine 04/18/2019 11:40 AM EDT HM COLONOSCOPY Routine 11/22/2016 from Last 3 Months or Most Recently Relevant to Health Maintenance Results * (ABNORMAL) Glucose, Whole Blood (10/09/2024 3:32 PM EST) Only the most recent of3 resultswithin the time period is included. Glucose, Whole Blood 496(HH) 60 - 115 mg/dL [facility] Comment:METER #: [id number] Testing performed in the Endocrinology Department [address] , [address], [facility]. 10/09/2024 3:32 PM EST 10/10/2024 3:04 PM EST us Generic External Data Provider LAB BLOOD ORDERAB LES Final Result [facility] [address] [place] [phone] * XR Chest 2 Views (09/26/2024 9:20 AM EST) Anatomical Region Laterality Modality Chest Radiographic Sherita ging us Historical Provider IMG XR PROCEDURES Final R esult * (ABNORMAL) POCT HGB A1C (09/05/2024 1:57 PM EST) Hemoglobin A1C 9.2(A) 4.0 - 6.0 % QC Media Lot # [id number] Lot# Expiration Date [id number] Blood 09/05/2024 1:57 PM EST us Grisel Meraz MD POINT OF CARE TEST ENTER/EDIT ORDERABLES Final Result * (ABNORMAL) POCT Glucose (09/05/2024 1:57 PM EST) Glucose Blood, POC 500(A) 60 - 200 mg/dL Comment:[facility] QC Media Lot # [id number] Lot# Expiration Date [id number] Blood Capillary blood specimen / Unknown 09/05/2024 1:57 PM EST us Grisel Meraz MD POINT OF CARE TEST ENTER/EDIT ORDERABLES Final Result * (ABNORMAL) MRSA Nasal Screen (09/05/2024 1:45 PM EST) MRSA Nasal PCR NEGATIVE Negative [facility] SA Nasal PCR POSITIVE(A) Negative [facility] MRSA Interpretation SEE NOTE [facility] Comment:MRSA target DNA not detected; SA target DNA detected.A MRSA NEGATIVE, SA POSITIVE test result does not precludeMRSA nasal colonization. Nares Nasal structure / Unknown 09/05/2024 1:45 PM EST 09/06/2024 1:44 PM EST Result Kayla Meraz MD LAB MICROBIOLOGY - GENERAL OR DERABLES Final Result [facility] [address] [place] [phone] * BI Mammogram Screening Bilateral (11/16/2023) Anatomical Region Laterality Modality Breast Bilateral Mammography Result Kayla Meraz MD IMG BI PROCEDURES Final Resul t * Albumin, Random Urine W/Creatinine (09/06/2023 11:30 AM EST) Creatinine, Urine 63.27 mg/dL [facility] Microalbumin Urine 8.0 mg/L [facility] Microalbum Creatinine Ratio Ur 12.6 <30 ug/mg cr [facility] Comment:Albumin/Creatinine R atio Reference Ranges: Normal: < 30 ug/mg creatinine Microalbuminuria: 30 - 300 ug/mg creatinineClinical Albuminuria: > 300 ug/mg creatinine 09/06/2023 11:3 0 AM EST 09/06/2023 1:26 PM EST us Generic External Data Provider LAB URINE ORDERAB LES Final Result Performing Organization Address City/[facility]/ZIP Co de Phone Number [facility] [address] [place] [address] [phone] * (ABNORMAL) Lipid Panel, Standard (09/06/2023 11:30 AM EST) Triglycerides 220(H) <150 mg/dL [facility] Comment:Desirable Triglyceri de: less than 150 mg/dLBorderline High Triglyceride 150-199 mg/dLHigh Triglyceride: 200-499 mg/dLVery High Triglyceride: greater than or equal to 5OO mg/dL Cholesterol 211(H) <200 mg/dL [facility] Comment:Desirable Cholestero l: less than 200 mg/dLBorderline High Cholesterol: 200-239 mg/dLHigh Cholesterol: greater than 239 mg/dL LDL Cholesterol Calculated 110(H) <100 mg/dL [facility] Comment:Desirable LDL: less than 100 mg/dLNear Optimal/Above Optimal LDL: 110- 129 mg/dLBorderline High LDL: 130-159 mg/dLHigh LDL: 160-189 mg/dLVery High LDL: greater than or equal to 190 mg/dL HDL Cholesterol 57 >40 mg/dL [facility] Comment:Desirable HDL: great er than 40 mg/dL Note: This HDL assay may give artificially low results in patients with liver disease. 09/06/2023 11:3 0 AM EST 09/06/2023 11:31 AM EST us Generic External Data Provider LAB BLOOD ORDERAB LES Final Result [facility] [address] [place] [address] [phone] * HEPATITIS C AB W/REFL TO HCV RNA, QN, PCR (12/03/2021 12:00 AM EDT) HEPATITIS C ANTIBODY NON-REACT MICHAEL NON-REACT MICHAEL [facility] INDEX 0.01 <1.00 [facility] Comment: ?? HCV antibody was non-reactive. There is no laboratory ?? evidence of HCV infection. ?? In most cases, no further action is required. However, if recent HCV exposure is suspected, a test for HCV RNA (test code 46107) is suggested. ?? For additional information please refer to http://PA Semi.Cyvera/faq/CWJ53o6 (This link is being provided for informational/ educational purposes only.) ?? 12/03/2021 us Grisel Meraz MD HISTORICAL/NON ORDERABLE LABS Final Result [facility] [address] * HIV 1/2 ANTIGEN/ANTIBODY,FOURTH GENERATION W/RFL (12/03/2021 12:00 AM EDT) HIV-1/2 ANTIGEN AND ANTIBODIES, 4TH GENERATION W/ REFLEX NON-REACT MICHAEL NON-REACT MICHAEL [facility] Comment: HIV-1 antigen [...] ? For additional information please refer to http://PA Semi.Cyvera/faq/AXW328 (This link is being provided for informational/ educational purposes only.) ? The performance of this assay has not been clinically validated in patients less than 2 years old. ?? 12/03/2021 Grisel Meraz MD LAB BLOOD ORDERABLES Final Re sult [facility] [address] [place] [address], * HPV E6/E7 RFLX SONIA 16 18/45 (04/18/2019 11:40 AM EDT) HPV 16 RNA Test not performed [facility] HPV 18/45 RNA Test not performed [facility] HPV mRNA E6/E7 Not Detected NOT DETECTED [facility] Comment: This test was performed using the APTIMA(R) HPV Assay ([employer] This assay detects E6/E7 viral messenger RNA (mRNA) from 14 high-risk HPV types (16,18,31,33,35,39,45,51, 52,56,58,59,66,68). For additional information please refer to: http://education.Cyvera/faq/AWM336j6 (This link is being provided for informational/ educational purposes only.) The analytical performance characteristics of this assay have been determined by [employer] [place], [place]. The modifications have not been cleared or approved by the FDA. This assay has been validated pursuant to the CLIA regulations and is used for clinical purposes. Please note: ??Effective 05/16/2016, HPV testing will be performed using [employer]'s APTIMA test which targets mRNA. Detecting mRNA instead of DNA, as in older methods, offers significant improvements in specificity. ADDITIONAL TESTING Not indicated () [facility] Comment: Test Performed by [employer], [address], [address] [place], [place] Jorje Hendrickson M.D., Ph.D., Director of Laboratories , CLIA [id number] 04/18/2019 11:4 0 AM EDT Grisel Meraz MD HISTORICAL/NON ORDERABLE LABS Final Result [facility] [address] [place] [address], * Colonoscopy (11/22/2016) Colonoscopy Normal Normal Vianey Gutierrez - 11/22/2016 Recommended 5 year follow up us Historical Provider HEALTH MAINTENANCE Final Result from Last 3 Months or Most Recently Relevant to Health Maintenance Insurance [employer] PPO [facility] AD[facility] Advance Directives Documents on File Type Date Recorded Patient Cloud Software Engineer Expl anation Advance Directives and Livin g Will 11/09/2023 3:59 PM HCP Care Teams Electric Truck Operator Relationship Specialty Start Date End Date Grisel Meraz MD [address] [place] [address] PCP - General Family Medicine 03/06/19
--- OUTSIDE RECORDS SUMMARY | 2024-10-18 15:02 | XMS_ITS | Encounter Summary ---
Author Organization [employer] Address [address] [facility] 7 [place] [address] Care Team Providers Care Television Cable Installer Name Role Phone Grisel Meraz MD Primary Care Provider [phone] Reason for Visit * Reason Comments Med Refill Encounter Details Date Type Department Care Team ([facility] Contact Info) Description 10/16/2024 Refill [facility] [address] [place] [address] Grisel Meraz MD [address] [place] [address] Social History Tobacco Use Types Packs/Day Years [...] Description 10/31/2024 2:00 PM EST Nurse Only [facility] [address] [place], [place] [phone] 01/09/2025 3:00 PM EDT Office Visit [facility] [address] [place] [address] Flex, Antonella, OD [address] [place] [address] documented as of this encounter Visit Diagnoses Not on filedocumented in this encounter Additional Health Concerns Assessment Noted Time PHQ-9 Depression Total Score: 21 023 11:24 AM EST documented as of this encounter Care Teams Television Cable Installer Relationship Specialty Start Date End Date Grisel Meraz MD [address] [place] [address] PCP - General Family Medicine 03/06/19 documented as of this encounter
--- OUTSIDE RECORDS SUMMARY | 2024-10-18 15:02 | XMS_ITS | Encounter Summary ---
Author Organization [employer] Address [address] [facility] 7t [place] [address] Care Team Providers Care Extension Educator Name Role Phone Grisel Meraz MD Primary Care Provider [phone] Encounter Details Date Type Department Care Team ([facility] Contact Info) Description 09/27/2024 Orders Only [facility] [address] [place] [address] ProviderSilverio MD Social History Tobacco Use Types Packs/Day Years [...] Description 10/31/2024 2:00 PM EST Nurse Only [facility] [address] [place], [place] [phone] 01/09/2025 3:00 PM EDT Office Visit [facility] [address] [place] [address] Flex, Antonella, OD [address] [place] [address] documented as of this encounter Procedures Procedure Name Priority Date/Time Associated Diagnosis Comments XR CHEST 2 VIEWS Routine 09/26/2024 9:20 AM EST documented in this encounter Results * XR Chest 2 Views (09/26/2024 9:20 AM EST) Anatomical Region Laterality Modality Chest Radiographic Sherita ging us Historical Provider IMG XR PROCEDURES Final R esult documented in this encounter Visit Diagnoses Not on filedocumented in this encounter Additional Health Concerns Assessment Noted Time PHQ-9 Depression Total Score: 21 023 11:24 AM EST documented as of this encounter Care Teams Extension Educator Relationship Specialty Start Date End Date Grisel Meraz MD [address] [place] [address] PCP - General Family Medicine 03/06/19 documented as of this encounter
--- OUTSIDE RECORDS SUMMARY | 2024-10-18 15:02 | XMS_ITS | Encounter Summary ---
Author Organization [employer] Address 75 [facility] [address]t [place] [address] Care Team Providers Care Cable Supervisor Name Role Phone Grisel Meraz MD Primary Care Provider [phone] Encounter Details Date Type Department Care Team ([facility] st Contact Info) Description 09/25/2024 Orders [...] 10/31/2024 2:00 PM EST Nurse Only [facility] [address] [place], [place] [phone] 01/09/2025 3:00 PM EDT Office Visit [facility] [address] [place] [address] Flex, Antonella, OD [address] [place] [address] documented as of this encounter Procedures Procedure Name Priority Date/Time Associated Diagnosis Comments GLUCOSE, WHOLE BLOOD Routine 09/25/2024 3:08 PM EST documented in this encounter Results * (ABNORMAL) Glucose, Whole Blood (09/25/2024 3:08 PM EST) [facility] Signature Glucose, Whole Blood 426() 60 - 115 mg/dL [facility] Comment:METER #: [id number] Testing performed in the Endocrinology Department [address] , [address], [facility]. 09/25/2024 3:08 PM EST 09/25/2024 3:13 PM EST us Generic External Data Provider LAB BLOOD ORDERAB LES Final Result [facility] [address] [place] [address] [phone] documented in this encounter Visit Diagnoses Not on filedocumented in this encounter Additional Health Concerns Assessment Noted Time PHQ-9 Depression Total Score: 21 023 11:24 AM EST documented as of this encounter Care Teams Cable Supervisor Relationship Specialty Start Date End Date Grisel Meraz MD [address] [place], [place] [phone] PCP - General Family Medicine 03/06/19 documented as of this encounter
--- OUTSIDE RECORDS SUMMARY | 2024-10-18 15:02 | XMS_ITS | Encounter Summary ---
Author Organization [employer] Address 75 [facility] [address] [place] [address] Care Team Providers Care Managing Editor Name Role Phone Grisel Meraz MD Primary Care Provider Reason for Visit * Reason Onset Date Comments Appointment Request 02/22/2023 Encounter Details Date Type Department Care Team ([facility] Contact Info) Description 02/22/2023 Telephone [facility] [address] [place] [address] Grisel Meraz MD [address] [place] [address] Appointment Request Social History Tobacco Use Types [...] are being required. Please contact pt at [phone] Lao Speaker documented in this encounter Plan of Treatment Upcoming Encounters Date Type Department Care Team (Late st Contact Info) Description 10/31/2024 2:00 PM EST Nurse Only [facility] [address] [place] [address] 01/09/2025 3:00 PM EDT Office Visit [facility] [address] [place], [place] [phone] Antonella Mccord, OD [address] [place] [address] documented as of this encounter Visit Diagnoses Not on filedocumented in this encounter Additional Health Concerns Assessment Noted Time PHQ-9 Depression Total Score: 21 023 11:24 AM EST documented as of this encounter Care Teams Managing Editor Relationship Specialty Start Date End Date Grisel Meraz MD [address] [place] [address] PCP - General Family Medicine 03/06/19 documented as of this encounter
--- OUTSIDE RECORDS SUMMARY | 2024-10-18 15:02 | XMS_ITS | Clinical Summary ---
Author Organization [facility] Address [address] [place] [address] Phone Care Team Providers Care Office Manager Receptionist Name Role Phone Grisel Meraz MD Primary Care Provider [phone] Allergies Active Allergy Reactions Criticality Noted Date Comments Hydrocodone Anaphylaxis High 01/24/2023 Oxycodone Shortness of breath High 01/18/2017 Other reaction(s): Unknown Medications acetaminophen (TYLENOL) 500 mg tablet TOME DOS TABLETAS POR V A ORAL CADA OCHO HORAS 09/16/19 23 Active allopurinoL (ZYLOPRIM) 300 mg tablet Take 1 tablet (300 mg total) by mouth 1 (one) time each day. 10/27/19 23 Active fluticasone furoate (Arnuity Ellipta) 100 mcg/actuation blister with device inhaler INHLE 1 PUFF INTO THE LUNGS TWICE A DAY 12/22/19 23 Active doxycycline (VIBRAMYCIN) 100 mg capsule Take 1 capsule (100 mg total) by mouth 2 (two) times a day. 05/24/20 23 Active enoxaparin (LOVENOX) 40 mg/0.4 mL syringe 09/16/19 23 Active fenofibrate (TRICOR) 48 mg tablet Take 1 tablet (48 mg total) by mouth daily. 12/25/19 16 Active gabapentin (NEURONTIN) 300 mg capsule 09/14/19 23 Active hydrOXYzine HCL (ATARAX) 50 mg tablet 09/15/19 23 Active insulin glargine (Lantus Solostar U-100 Insulin) 100 unit/mL (3 mL) injection pen Inject 20 Units under the skin every night at bedtime. 10/08/19 21 Active insulin lispro (HumaLOG KwikPen) 100 unit/mL injection pen INJECT 2 TO 16 UNITS SUBCUTANEOUSLY FOUR TIMES DAILY 09/25/19 21 Active lidocaine-carmen locaine (EMLA) 2.5-2.5 % cream Apply topically as needed. 11/22/19 23 Active lisinopriL (PRINIVIL,ZES TRIL) 2.5 mg tablet Take 1 tablet (2.5 mg total) by mouth 1 (one) time each day. 10/07/19 21 Active loratadine (CLARITIN) 10 mg tablet Take 1 tablet (10 mg total) by mouth 1 (one) time each day. 08/20/20 14 Active multivitamin tablet Take 1 tablet by mouth 1 (one) time each day. 07/08/20 22 Active omega-3 fatty acids 1,000 mg capsule Take 1 capsule by mouth 1 (one) time each day in the morning. 05/05/20 22 Active oxyBUTYnin XL (DITROPAN-XL) 5 mg 24 hr tablet Take 1 tablet orally daily 09/21/19 23 Active pantoprazole (PROTONIX) 40 mg EC tablet Take 1 tablet (40 mg total) by mouth. 09/21/19 23 Active pioglitazone (ACTOS) 30 mg tablet Take 1 tablet (30 mg total) by mouth daily. 06/10/20 22 Active predniSONE (DELTASONE) 50 mg tablet Take 1 tablet (50 mg total) by mouth 2 (two) times a day. Taking on days 2-5 following each chemotherapy treatment day. Active rosuvastatin (CRESTOR) 40 mg tablet Take 1 tablet (40 mg total) by mouth 1 (one) time each day. 09/14/19 23 Active senna-docusat e (PERICOLACE) 8.6-50 mg per tablet Take 1 tablet by mouth daily. 12/01/19 23 Active simethicone (MYLICON) 80 mg chewable tablet TOME ERENDIRA TABLETA POR V A ORAL CUATRO VECES AL D A CUANDO SEA NECESARIO FOR GAS PAIN/BLOATING 09/16/19 23 Active ondansetron (ZOFRAN) 8 mg tablet Take 1 tablet (8 mg total) by mouth every 12 hours as needed. 10/27/19 Active budesonide-fo rmoteroL (Symbicort) 160-4.5 mcg/actuation inhaler 09/14/19 Active topiramate (TOPAMAX) 25 mg tablet Take 1 tablet (25 mg total) by mouth 2 (two) times a day. 10/26/19 16 Active traZODone (DESYREL) 50 mg tablet 09/14/19 Active venlafaxine XR (EFFEXOR-XR) 150 mg 24 hr capsule Take 1 capsule (150 mg total) by mouth every morning. 09/14/19 Active traMADoL (ULTRAM) 50 mg tablet Take 1 tablet (50 mg total) by mouth every 6 (six) hours if needed for severe pain. for pain Max Daily Amount: 200 mg 64 tablet 2 08/15/20 Active miconazole (MICATIN) 2 % cream Apply topically 2 (two) times a day. 28.35 g 09/26/19 25 2024 Active fluconazole (DIFLUCAN) 150 mg tablet Take 1 tablet (150 mg total) by mouth 1 (one) time for 1 dose. 1 tablet 09/26/19 25 2024 Discontinued fluconazole (DIFLUCAN) 150 mg tablet Take 1 tablet (150 mg total) by mouth 1 (one) time for 1 dose. 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) from Last 3 Months Immunizations Name Administration [...] drink = 0.6 oz pur e alcohol) Comments No Sex and Gender Information Value Date Recorded Sex Assigned at Not on file Legal Sex Female 2:14 PM EST Gender Identity Not on file Sexual Orientation Not on file Obstetrics History Last Filed Vital Signs Vital Sign Reading Time Taken Comments Blood Pressure 120/93 09/26/2024 2:38 AM EST Pulse 74 09/26/2024 2:38 AM EST Temperature 36.5 ??C (97.7 ??F) 09/26/2024 2:38 AM ES T Respiratory Rate 17 09/26/2024 2:38 AM EST Oxygen Saturation 97% 09/26/2024 2:38 AM EST Inhaled Oxygen Concentration - - Weight 72.6 kg (160 lb) 09/25/2024 6:01 PM EST Height 170.2 cm (5' 7 ) 09/25/2024 6:01 PM EST Body Mass Index 25.06 09/25/2024 6:01 PM EST Plan of Treatment Upcoming Encounters Date Type Department Care Team (Late st Contact Info) Description 02/24/2025 3:30 PM EDT Office Visit [facility] Hematology Oncology [address] [place] [phone] Nirmal Cooper MD [address] [place] [address] Health Maintenance Due Date Last Done Comments Breast Cancer Screening 1972 Diabetes: Annual Foot Exam 1982 Diabetes: Annual Retina Eye Exam 1982 Hepatitis B Vaccines (1 of 3 - 19+ 3-dose series) 1991 Cervical Cancer Screening: Pap Smear 1993 Pneumococcal Vaccine: 50+ Years (2 of 2 - PCV) 03/10/2015 03/10/2014 Pneumococcal Vaccine: Pediatrics (0 to 5 Years) and At-Risk Patients (6 to 64 Years) (2 of 2 - PCV) 03/10/2015 03/10/2014 Colorectal Cancer Screening: Colonoscopy 08/16/2022 Medicare Annual Wellness Visit 08/16/2022 Social Influencers of Health Screening 08/16/2022 Depression Screening 10/26/2023 10/26/2022 COVID-19 Vaccine ( season) 2024 10/27/2022, 12/13/2021, 02/11/2021, Additional history exists Diabetes: Annual Urine Albumin-Creatinine Ratio (uACR) 07/17/2024 Zoster Vaccines (2 of 2) 10/31/2024 09/05/2024 Diabetes: Blood Sugar Control Test (HGBA1C) 03/05/2025 09/05/2024, 04/09/2024, 12/03/2021 Diabetes: Annual GFR (Glomerular Filtration Rate) 09/25/2025 09/25/2024, 08/06/2024, 07/16/2024, Additional history exists Cholesterol Screening (Lipid Panel) 09/06/2028 09/06/2023, 09/06/2023 DTaP,Tdap,and Td Vaccines (5 - Td or Tdap) 10/06/2030 10/06/2020, 06/27/2018, 12/23/2016, Additional history exists HIV Screening Completed 12/03/2021, 12/03/2021 Hepatitis C Screening Completed 11/21/2022 Influenza Vaccine Completed 09/05/2024, , 10/14/2020, Additional [...] patient's age to complete this topic Meningococcal B Vacine Aged Out No lo nger eligible based on patient's age to complete this topic RSV Immunization Patients Under 20 months Aged Out No longer eligible based on patient's age to complete this topic Varicella Vaccines Aged Out No longer eligible based on patient's age to complete this topic Procedures Procedure Name Priority Date/Time Associated Diagnosis Comments XR CHEST 2 VIEWS STAT 09/26/2024 3:36 AM EST POCT GLUCOSE BLOOD Routine 09/26/2024 2: 43 AM EST [place] URINE CULTURE TUBE Routine 09/25/19 10:50 PM EST EXTRA TUBES Routine 09/25/2024 10:50 PM EST URINALYSIS WITH REFLEX MICROSCOPIC STAT 09/25/2024 10:50 PM EST URINALYSIS WITH REFLEX MICROSCOPIC STAT 09/25/2024 10:50 PM EST VENOUS BLOOD GAS STAT 09/25/2024 10:3 7 PM EST CBC WITH AUTO DIFFERENTIAL STAT 09/25/2024 7:30 PM EST BETA HYDROXYBUTYRATE STAT 09/25/2024 7:30 PM EST OSMOLALITY STAT 09/25/2024 7:30 PM EST MAGNESIUM STAT 09/25/2024 7:30 PM EST LIPASE STAT 09/25/2024 7:30 PM EST COMPREHENSIVE METABOLIC PANEL STAT 09/25/2024 7:30 PM EST CBC AND DIFFERENTIAL STAT 09/25/2024 7:30 PM EST CBC WITH AUTO DIFFERENTIAL Routine 08/06/2024 1:16 PM EST Leukosarcoma (CMS/HCC) BETA 2 MICROGLOBULIN, SERUM Routine 08/06/2024 1:16 PM EST Leukosarcoma (CMS/HCC) LACTATE DEHYDROGENASE Routine 08/06/2024 1:16 PM EST Leukosarcoma (CMS/HCC) CBC AND DIFFERENTIAL Routine 08/06/2024 1:16 PM EST Leukosarcoma (CMS/HCC) COMPREHENSIVE METABOLIC PANEL Routine 08/06/2024 1:16 PM EST Leukosarcoma (CMS/HCC) LIPID PANEL Routine 09/06/2023 HEPATITIS C SCREENING Routine 11/21/2022 HIV SCREENING Routine 12/03/2021 HEMOGLOBIN A1C Routine 12/03/2021 from Last 3 Months or Most Recently Relevant to Health Maintenance Results * XR Chest 2 Views (09/26/2024 3:36 AM EST) Anatomical Region Laterality Modality Body Radiographic Sherita ging 09/26/2024 8:06 AM EST Impressions 09/26/2024 8:07 AM EST Normal chest radiographs. -------- FINAL REPORT -------- Dictated By: fAtab Mercado Dictated Date: 09/26/2024 08:06 ET Assigned Physician: Aftab Mercado Reviewed and Electronically Signed By: Aftab Mercado Signed Date: 09/26/2024 08:07 ET Workstation ID: [id number] Transcribed By: Self Edit Transcribed Date: 09/26/2024 08:06 ET Narrative 09/26/2024 8:07 AM EST PROCEDURE: PA and lateral radiographs of the chest. HISTORY: Cough, persistent. COMPARISON: 10/30/2018. FINDINGS: The heart, mediastinum, lungs, pleural spaces, and bony thorax are normal. ??Cholecystectomy clips. Procedure Note Aftab Mercado MD - 09/26/2024 PROCEDURE: PA and lateral radiographs of the chest. HISTORY: Cough, persistent. COMPARISON: 10/30/2018. FINDINGS: The heart, mediastinum, lungs, pleural spaces, and bony thorax are normal.Cholecystectomy clips. IMPRESSION: Normal chest radiographs. -------- FINAL REPORT -------- Dictated By: Aftab Mercado Dictated Date: 09/26/2024 08:06 ET Assigned Physician: Aftab Mercado Reviewed and Electronically Signed By: Aftab Mercado Signed Date: 09/26/2024 08:07 ET Workstation ID: [id number] Transcribed By: Self Edit Transcribed Date: 09/26/2024 08:06 ET Yun GALLAGHER IMG XR PROCEDURES Final Result * (ABNORMAL) POCT Glucose, blood (09/26/2024 2:43 AM EST) [facility] Glucose POCT 232(H) 70 - 100 mg/dL 09/26/2024 2:44 AM EST [facility] Blood Capillary blood specimen / Unknown 09/26/2024 2:43 AM EST 09/26/2024 2:45 AM EST us Generic Provider Poct LAB POINT OF CARE TEST DOCKED DEVICE UNSOLICITED RESULTS Final Result [facility] [address] [place] [address], [place] [phone] * (ABNORMAL) Urinalysis with reflex microscopic (09/25/2024 10:50 PM EST) [facility] Specific [place] Urine 1.024 1.003 - 1.030 LAB URINALYSIS - AUTOMATED METHOD 09/25/2024 11:19 PM EST [facility] pH, Urine 6.0 5.0 - 8.0 pH LAB URINALYSIS - AUTOMATED METHOD 09/25/2024 11:19 PM EST [facility] Leukocytes, Urine Negative Negative LAB URINALYSIS - AUTOMATED METHOD 09/25/2024 11:19 PM [facility] Nitrite, Urine Negative Negative LAB URINALYSIS - AUTOMATED METHOD 09/25/2024 11:19 PM [facility] Protein, Urine Negative <=Trace mg/dL LAB URINALYSIS - AUTOMATED METHOD 09/25/2024 11:19 PM [facility] Glucose, Urine >=1000(A) Negative mg/dL LAB URINALYSIS - AUTOMATED METHOD 09/25/2024 11:19 PM [facility] Ketones, Urine Negative Negative mg/dL LAB URINALYSIS - AUTOMATED METHOD 09/25/2024 11:19 PM [facility] Urobilinogen , Urine 1.0 0.2 - 1.0 mg/dL LAB URINALYSIS - AUTOMATED METHOD 09/25/2024 11:19 PM [facility] Bilirubin, Urine Negative Negative LAB URINALYSIS - AUTOMATED METHOD 09/25/2024 11:19 PM [facility] Blood, Urine Negative Negative LAB URINALYSIS - AUTOMATED METHOD 09/25/2024 11:19 PM [facility] Urine Urine specimen obtained by clean catch procedure / Unknown Non-blood Collection / Unknown 09/25/2024 10:50 PM EST 09/25/2024 11:13 PM EST us Savage Frank DO LAB URINE ORDERABLES Final Resu lt [facility] [address] [place] [address], * [place] urine culture tube (09/25/2024 10:50 PM EST) Extra Tube Hold for add-ons. 09/26/2024 1:02 AM [facility] Comment:Auto resulted. Urine Urine specimen obtained by clean catch procedure / Unknown 09/25/2024 10:50 PM EST 09/25/2024 11:14 PM EST us Audra GALLAGHER LAB URINE ORDERABLES Final Re sult Performing Organization Address [facility] [place]/ZIP Co de Phone Number [facility] [address] [place] [address], * (ABNORMAL) Venous blood gas (09/25/2024 10:37 PM EST) pH, Adolph 7.41 7.32 - 7.42 pH 09/25/2024 10:45 PM EST [facility] pCO2, Adolph 48 41 - 51 mmHg 09/25/2024 10:45 PM EST [facility] pO2, Adolph 21(L) 25 - 40 mmHg 09/25/2024 10:45 PM EST [facility] HCO3, Venous 26.8(H) 22.0 - 26.0 mmol/L 09/25/2024 10:45 PM EST [facility] O2 Sat, Adolph 44.7 % 09/25/2024 10:45 PM EST [facility] Base Excess, Adolph 4.6(H) -2.0 - 2.0 mmol/L 09/25/2024 10:45 PM EST [facility] Blood Venous blood specimen / Unknown Venipuncture / Unknown 09/25/2024 10:37 PM EST 09/25/2024 10:41 PM EST Savage Frank DO LAB BLOOD ORDERABLES Final Resu lt [facility] [address] [place] [address], [place] [phone] * Beta hydroxybutyrate (09/25/2024 7:30 PM EST) Beta-Hydroxybu tyrate 1.4 0.2 - 2.8 mg/dL LAB CHEMISTRY METHOD 09/25/2024 8:11 PM EST [facility] Blood Venous blood specimen / Unknown Venipuncture / Unknown 09/25/2024 7:30 PM EST 09/25/2024 7:37 PM EST us Stormrich Terri Frank DO LAB BLOOD ORDERABLES Final Resu lt [facility] [address] [place] [address], [place] [phone] * CBC auto differential (09/25/2024 7:30 PM EST) Only the most recent of2 resultswithin the time period is included. WBC 6.6 4.8 - 10.8 K/mcL LAB HEMETOLOGY METHOD 09/25/2024 7:52 PM [facility] RBC 4.80 3.80 - 4.80 M/mcL LAB HEMETOLOGY METHOD 09/25/2024 7:52 PM [facility] Hemoglobin 13.9 11.5 - 16.0 g/dL LAB HEMETOLOGY METHOD 09/25/2024 7:52 PM [facility] Hematocrit 41.2 35.0 - 47.0 % LAB HEMETOLOGY METHOD 09/25/2024 7:52 PM [facility] MCV 85.5 79.0 - 98.0 FL LAB HEMETOLOGY METHOD 09/25/2024 7:52 PM EST [facility] MCH 28.8 27.0 - 32.0 pcg LAB HEMETOLOGY METHOD 09/25/2024 7:52 PM [facility] MCHC 33.7 32.0 - 37.0 g/dL LAB HEMETOLOGY METHOD 09/25/2024 7:52 PM [facility] RDW 12.2 11.0 - 15.0 % LAB HEMETOLOGY METHOD 09/25/2024 7:52 PM [facility] Platelets 235 130 - 400 K/mcL LAB HEMETOLOGY METHOD 09/25/2024 7:52 PM [facility] MPV 10.4 7.0 - 11.0 FL LAB HEMETOLOGY METHOD 09/25/2024 7:52 PM [facility] NRBC 0.0 <1.0 % LAB HEMETOLOGY METHOD 09/25/2024 7:52 PM [facility] NRBC Absolute 0.00 <0.10 K/mcL LAB HEMETOLOGY METHOD 09/25/2024 7:52 PM [facility] Neutrophils Relative 52.3 % LAB HEMETOLOGY METHOD 09/25/2024 7:52 PM [facility] Lymphocytes Relative 34.3 % LAB HEMETOLOGY METHOD 09/25/2024 7:52 PM [facility] Monocytes Relative 9.3 % LAB HEMETOLOGY METHOD 09/25/2024 7:52 PM [facility] Eosinophils Relative 2.4 % LAB HEMETOLOGY METHOD 09/25/2024 7:52 PM [facility] Basophils Relative 1.4 % LAB HEMETOLOGY METHOD 09/25/2024 7:52 PM [facility] Immature Granulocytes Relative 0.3 % LAB HEMETOLOGY METHOD 09/25/2024 7:52 PM [facility] Neutrophils Absolute 3.43 1.50 - 7.00 K/mcL LAB HEMETOLOGY METHOD 09/25/2024 7:52 PM [facility] Lymphocytes Absolute 2.25 1.00 - 5.00 K/mcL LAB HEMETOLOGY METHOD 09/25/2024 7:52 PM [facility] Monocytes Absolute 0.61 0.20 - 1.00 K/mcL LAB HEMETOLOGY METHOD 09/25/2024 7:52 PM [facility] Eosinophils Absolute 0.16 0.00 - 0.50 K/mcL LAB HEMETOLOGY METHOD 09/25/2024 7:52 PM EST [facility] Basophils Absolute 0.09 0.00 - 0.20 K/[facility] LAB HEMETOLOGY METHOD 09/25/2024 7:52 PM EST [facility] Immature Granulocytes Absolute 0.02 0.00 - 0.03 K/[facility] LAB HEMETOLOGY METHOD 09/25/2024 7:52 PM EST [facility] Blood Venous blood specimen / Unknown Venipuncture / Unknown 09/25/2024 7:30 PM EST 09/25/2024 7:37 PM EST Savage Murray Monika ANNA LAB BLOOD ORDERABLES Final Resu lt Performing Organization Address City/[facility] [place]/ZIP Co de Phone Number [facility] [address] [place] [address], [place] [phone] * Osmolality (09/25/2024 7:30 PM EST) Osmolality Aleksey 298 280 - 300 mOsm/kg LAB CHEMISTRY METHOD 09/25/2024 8:34 PM EST [facility] Blood Venous blood specimen / Unknown Venipuncture / Unknown 09/25/2024 7:30 PM EST 09/25/2024 7:37 PM EST Stormrich Terri Frank DO LAB BLOOD ORDERABLES Final Resu lt [facility] [address] [place] [address], [place] [phone] * Magnesium (09/25/2024 7:30 PM EST) Magnesium 2.0 1.9 - 2.6 mg/dL LAB CHEMISTRY METHOD 09/25/2024 8:11 PM EST [facility] Blood Venous blood specimen / Unknown Venipuncture / Unknown 09/25/2024 7:30 PM EST 09/25/2024 7:37 PM EST Savage Frank DO LAB BLOOD ORDERABLES Final Resu lt [facility] [address] [place] [address], [place] [phone] * Lipase (09/25/2024 7:30 PM EST) Pathologist [facility] Lipase 39 13 - 75 unit/L LAB CHEMISTRY METHOD 09/25/2024 8:11 PM [facility] Blood Venous blood specimen / Unknown Venipuncture / Unknown 09/25/2024 7:30 PM EST 09/25/2024 7:37 PM EST Savage Frank LAB BLOOD ORDERABLES Final Resu lt Performing Organization Address [facility] [place]/ZIP Co de Phone Number [facility] [address] [place] [address], [place] [phone] * (ABNORMAL) Comprehensive metabolic panel (09/25/2024 7:30 PM EST) Only the most recent of2 resultswithin the time period is included. Pathologist [facility] [place] Sodium 131(L) 133 - 145 mmol/L LAB CHEMISTRY METHOD 09/25/2024 8:22 PM [facility] Potassium 4.1 3.5 - 5.5 mmol/L LAB CHEMISTRY METHOD 09/25/2024 8:22 PM [facility] Chloride 100 96 - 110 mmol/L LAB CHEMISTRY METHOD 09/25/2024 8:22 PM [facility] CO2 28 21 - 32 mmol/L LAB CHEMISTRY METHOD 09/25/2024 8:22 PM [facility] Anion Gap 3 3 - 11 LAB CHEMISTRY METHOD 09/25/2024 8:22 PM [facility] Glucose 310(H) 70 - 100 mg/dL LAB CHEMISTRY METHOD 09/25/2024 8:22 PM [facility] BUN 11 5 - 25 mg/dL LAB CHEMISTRY METHOD 09/25/2024 8:22 PM [facility] Creatinine 0.76 0.50 - 1.10 mg/dL LAB CHEMISTRY METHOD 09/25/2024 8:22 PM [facility] eGFR 94 >=60 mL/min/1. 73m2 LAB CHEMISTRY METHOD 09/25/2024 8:22 PM [facility] Comment:Calculation based on the??Chronic Kidney Disease Epidemiology Collaboration (CKD-EPI) equation refit??without adjustment for race. BUN/Creatinine Ratio 14.5 LAB CHEMISTRY METHOD 09/25/2024 8:22 PM [facility] Calcium 9.3 8.5 - 10.5 mg/dL LAB CHEMISTRY METHOD 09/25/2024 8:22 PM [facility] AST (SGOT) 33 10 - 42 unit/L LAB CHEMISTRY METHOD 09/25/2024 8:22 PM [facility] ALT (SGPT) 46 10 - 60 unit/L LAB CHEMISTRY METHOD 09/25/2024 8:22 PM [facility] Alkaline Phosphatase 103 42 - 121 unit/L LAB CHEMISTRY METHOD 09/25/2024 8:22 PM [facility] Total Protein 7.9 6.0 - 8.0 g/dL LAB CHEMISTRY METHOD 09/25/2024 8:22 PM [facility] Albumin 4.1 3.2 - 5.0 g/dL LAB CHEMISTRY METHOD 09/25/2024 8:22 PM [facility] Total Bilirubin 0.6 0.0 - 1.4 mg/dL LAB CHEMISTRY METHOD 09/25/2024 8:22 PM [facility] Blood Venous blood specimen / Unknown Venipuncture / Unknown 09/25/2024 7:30 PM EST 09/25/2024 7:37 PM EST us Savage Frank DO LAB BLOOD ORDERABLES Final Resu lt Performing Organization Address City/[facility] [place]/ZIP Co de Phone Number [facility] [address] [place] [address], * Lactate dehydrogenase (08/06/2024 1:16 PM EST) Pathologist [facility] [place] LDH 231 120 - 246 unit/L LAB CHEMISTRY METHOD 08/06/2024 2:19 PM EST [facility] Blood Venous blood specimen / Unknown Venipuncture / Unknown 08/06/2024 1:16 PM EST 08/06/2024 1:40 PM EST Nirmal Cooper MD LAB BLOOD ORDERABLES Final R esult Performing Organization Address [facility] [place]/ZIP Co de Phone Number [facility] [address] [place] [address], * Beta 2 microglobulin, serum (08/06/2024 1:16 PM EST) [facility] Beta-2 Microglobulin 1.4 0.7 - 1.8 mg/L LAB CHEMISTRY METHOD 08/06/2024 2:21 PM EST [facility] Blood Venous blood specimen / Unknown Venipuncture / Unknown 08/06/2024 1:16 PM EST 08/06/2024 1:40 PM EST Nirmal Cooper MD LAB BLOOD ORDERABLES Final R esult Performing Organization Address City/[facility] [place]/ZIP Co de Phone Number [facility] [address] [place] [address], [place] [phone] * Lipid panel (09/06/2023) Pathologist [facility] [place] LDL/HDL Ratio 0 Triglycerides 0 mg/dL Cholesterol 0 mg/dL HDL 0 mg/dL LDL Cholesterol 0 mg/dL Blood Venous blood specimen / Unknown Historical Provider LAB BLOOD ORDERABLES Prema l Result * Hepatitis C Screening (11/21/2022) Hepatitis C Screening Abstracted Historical Provider HEALTH MAINTENANCE Final Result * HIV Screening (12/03/2021) HIV Screening Abstracted Historical Provider HEALTH MAINTENANCE Final Result * Hemoglobin A1c (12/03/2021) Pathologist [facility] Hemoglobin A1C 0.0 % Blood Venous blood specimen / Unknown Result [facility] Provider LAB BLOOD ORDERABLES Prema l Result from Last 3 Months or Most Recently Relevant [place] [id number] [facility] MEDIC[facility] ADVANTAGE MEDICAID - [place] Care Teams Office Manager Receptionist Relationship Specialty Start Date End Date Grisel Meraz MD [address] [place], [place] [address]je[place] [id number] [facility] - General 09/16/22
--- OUTSIDE RECORDS SUMMARY | 2024-10-18 15:02 | XMS_ITS | Encounter Summary ---
Author Organization [facility] Address [address] 7 [place] [address] Care Team Providers Care Screed Person Name Role Phone Grisel Meraz MD Primary Care Provider [phone] Reason for Visit * Reason Onset Date Comments triage 08/16/2022 Encounter Details Date Type Department Care Team ([facility] Contact Info) Description 08/16/2022 Telephone [facility] [address] [place], [place] [phone] Grisel Meraz MD [address] [place] [address] triage Social History Tobacco Use Types Packs/Day [...] report Losing weight x Months. Patient speaks (Setswana). Advised triage nurse will call patient back. documented in this encounter Plan of Treatment Upcoming Encounters Date Type Department Care Team ([facility] Contact Info) Description 10/31/2024 2:00 PM EST Nurse Only [facility] [address] [place], [place] [phone] 01/09/2025 3:00 PM EDT Office Visit [facility] [address] [place] [address] Antonella Mccord, OD [address] [place] [address] documented as of this encounter Visit Diagnoses Not on filedocumented in this encounter Care Teams Screed Person Relationship Specialty Start Date End Date Grisel Meraz MD [address] [place] [id number] PCP - General Family Medicine 03/06/19 documented as of this encounter
--- OUTSIDE RECORDS SUMMARY | 2024-10-18 15:02 | XMS_ITS | Encounter Summary ---
Author Organization [id number] [facility] Address [address] [place] [address] Care Team Providers Care Compressor Mechanic Bus Name Role Phone Grisel Meraz MD Primary Care Provider [phone] Encounter Details Date Type Department Care Team Description 12/20/[address] [facility] Oncology Services [address] [place] [address] Grabiel Silva [facility] Social History Tobacco Use Types Packs/Day Years [...] file Not on file Not on file COVID-19 Exposure Response Date Recorded In the last 10 days, have yo u been in contact with someone who was confirmed or suspected to have Coronavirus/COVID-19? No / Unsure 12/21/2022 3:47 PM EDT documented as of this encounter Plan of Treatment Not on file documented as of this encounter Visit Diagnoses Not on filedocumented in this encounter Care Teams Compressor Mechanic Bus Relationship Specialty Start Date End Date Grisel Meraz MD [address] [facility] [place] [address] PCP - General Pediatrics 09/16/22 documented as of this encounter
--- OUTSIDE RECORDS SUMMARY | 2024-10-18 15:02 | XMS_ITS | Encounter Summary ---
Author Organization [employer] Address [address] [place] [address] Care Team Providers Care Hog Confinement System Manager Name Role Phone Grisel Meraz MD Primary Care Provider [phone] Encounter Details Date Type Department Care Team ([facility] st Contact Info) Description 09/06/2024 Orders Only [facility] [address] [place] [address] Grisel Meraz MD [address] [place] [address] Boils of multiple sites (Primary Dx) Social [...] Description 10/31/2024 2:00 PM EST Nurse Only [facility] [address] [place], [place] [id number] 01/09/2025 3:00 PM EDT Office Visit [facility] [address] [place] [address] Flex, Antonella, OD [address] [place] [address] documented as of this encounter Visit Diagnoses Diagnosis Boils of multiple sites- Primary documented in this encounter Additional Health Concerns Assessment Noted Time PHQ-9 Depression Total Score: 21 023 11:24 AM EST documented as of this encounter Care Teams Hog Confinement System Manager Relationship Specialty Start Date End Date Grisel Meraz MD [address] [place] [address] PCP - General Family Medicine 03/06/19 documented as of this encounter
--- OUTSIDE RECORDS SUMMARY | 2024-10-18 15:02 | XMS_ITS | Encounter Summary ---
Author Organization [employer] [facility] Address [address] [place] [address] Care Team Providers Care Global Sales Director Name Role Phone Grisel Meraz MD Primary Care Provider [phone] Encounter Details Date Type Department Care Team Description 11/01/2022 Social Work [facility] Oncology Services [address] [place] [address] Grabiel Silva [facility] Social History Tobacco Use Types Packs/Day [...] suspected to have Coronavirus/COVID-19? No / Unsure 10/31/2022 1:05 PM EST documented as of this encounter Plan of Treatment Not on file documented as of this encounter Visit Diagnoses Not on filedocumented in this encounter Care Teams Global Sales Director Relationship Specialty Start Date End Date Grisel Meraz MD [address] [facility] [place] [address] PCP - General Pediatrics 09/16/22 documented as of this encounter
--- OUTSIDE RECORDS SUMMARY | 2024-10-18 15:02 | XMS_ITS | Encounter Summary ---
Author Organization [employer] [facility] Address [address] [place] [address] [address] [place] [address] Care Team Providers Care Finished Hardware Erector Name Role Phone Grisel Meraz MD Primary Care Provider [phone] Reason for Visit * Reason Comments Med Refill Encounter Details Date Type Department Care Team (Late Contact Info) Description 09/14/2022 Refill [facility] [address] [place] [address] Sadie Wayne MD [address] [place] [address] Social History Tobacco Use Types Packs/Day Years [...] Description 10/31/2024 2:00 PM EST Nurse Only [facility] [address] [place], [place] [phone] 01/09/2025 3:00 PM EDT Office Visit [facility] [address] [place] [address] Antonella Mccord, OD [address] [place] [address] documented as of this encounter Visit Diagnoses Not on filedocumented in this encounter Care Teams Finished Hardware Erector Relationship Specialty Start Date End Date Grisel Meraz MD [address] [place] [id number] PCP - General Family Medicine 03/06/19 documented as of this encounter
--- OUTSIDE RECORDS SUMMARY | 2024-10-18 15:02 | XMS_ITS | Encounter Summary ---
Author Organization [employer] Address [address] [place] [address] Care Team Providers Care Mycologist Name Role Phone Grisel Meraz MD Primary Care Provider [phone] Encounter Details Date Type Department Care Team ([facility] st Contact Info) Description 10/09/2024 Orders Only GENERIC EXTERNAL DATA DEPARTMENT [...] Description 10/31/2024 2:00 PM EST Nurse Only [facility] [address] [place], [place] [phone] 01/09/2025 3:00 PM EDT Office Visit [facility] OPTOM[facility] [address] [place] [address] Flex, Antonelal, OD [address] [place] [address] documented as of this encounter Procedures Procedure Name Priority Date/Time Associated Diagnosis Comments GLUCOSE, WHOLE BLOOD Routine 10/09/2024 3:32 PM EST documented in this encounter Results * (ABNORMAL) Glucose, Whole Blood (10/09/2024 3:32 PM EST) [facility] Signature Glucose, Whole Blood 496() 60 - 115 mg/dL [facility] Comment:METER #: [id number] Testing performed in the Endocrinology Department [address] , [address], [facility]. 10/09/2024 3:32 PM EST 10/10/2024 3:04 PM EST us Generic External Data Provider LAB BLOOD ORDERAB LES Final Result [facility] [address] [place] [address] [phone] documented in this encounter Visit Diagnoses Not on filedocumented in this encounter Additional Health Concerns Assessment Noted Time PHQ-9 Depression Total Score: 21 023 11:24 AM EST documented as of this encounter Care Teams Mycologist Relationship Specialty Start Date End Date Grisel Meraz MD [address] [place], [place] [phone] PCP - General Family Medicine 03/06/19 documented as of this encounter
--- OUTSIDE RECORDS SUMMARY | 2024-10-18 15:02 | XMS_ITS | Encounter Summary ---
Author Organization [facility] Address [address] [place] [address] Care Team Providers Care Lithographic General Worker Name Role Phone Grisel Meraz MD Primary Care Provider [phone] Reason for Visit * Reason Comments Hyperglycemia PT sent in by endocr inology for elevated blood sugars Encounter Details Date Type Department Care Team (Late st Contact Info) Description 09/26/2024 3:17 AM EST - 09/26/2024 4:34 AM EST Emergency [facility] Emergency [address] [place] [id number] Yeast infection (Primary Dx); Hyperglycemia Discharge Disposition: Home or Self Care Social History Tobacco Use Types Packs/Day Years Used Date Smoking Tobacco: Never Smokeless Tobacco: Never Alcohol Use Standard Drinks/Week Comments Never 0 (1 standard drink = 0.6 oz pur e alcohol) Comments No Sex and Gender Information Value Date Recorded Sex Assigned at Not on file Legal Sex Female 2:14 PM EST Gender Identity Not on file Sexual Orientation Not on file documented as of this encounter Last Filed [...] Mass Index 25.06 09/25/2024 6:01 PM EST documented in this encounter Discharge Instructions * Discharge Instructions* ELLIOTT Kahn - 09/26/2024 4:27 AM EST Your urine showed no signs of a urinary tract infection although your symptoms do sound concerning for a possible yeast infection. Your blood sugars looked like they were in appropriate range today, however please continue working with your dot net architect for appropriate blood sugar management. You received your first dose of Diflucan for yeast infection in the ED. If you are still having symptoms in 72 hours, you may take the second pill that was sent to your pharmacy. documented in this encounter Medications at Time of Discharge acetaminophen (TYLENOL) 500 mg tablet TOME DOS TABLETAS POR V A ORAL CADA OCHO HORAS 09/16/2022 allopurinoL (ZYLOPRIM) 300 mg tablet Take 1 tablet (300 mg total) by mouth 1 (one) time each day. 10/27/2022 budesonide-form oteroL (Symbicort) 160-4.5 mcg/actuation inhaler 09/14/2022 doxycycline (VIBRAMYCIN) 100 mg capsule Take 1 capsule (100 mg total) by mouth 2 (two) times a day. 05/24/2023 enoxaparin (LOVENOX) 40 mg/0.4 mL syringe 09/16/2022 fenofibrate (TRICOR) 48 mg tablet Take 1 tablet (48 mg total) by mouth daily. 12/25/2015 fluticasone furoate (Arnuity Ellipta) 100 mcg/actuation blister with device inhaler INHLE 1 PUFF INTO THE LUNGS TWICE A DAY 12/21/2022 gabapentin (NEURONTIN) 300 mg capsule 09/14/2022 hydrOXYzine HCL (ATARAX) 50 mg tablet 09/15/2022 insulin glargine (Lantus Solostar U-100 Insulin) 100 unit/mL (3 mL) injection pen Inject 20 Units under the skin every night at bedtime. 10/08/2020 insulin lispro (HumaLOG KwikPen) 100 unit/mL injection pen INJECT 2 TO 16 UNITS SUBCUTANEOUSLY FOUR TIMES DAILY 09/25/2020 lidocaine-prilo melisa (EMLA) 2.5-2.5 % cream Apply topically as needed. 11/21/2022 lisinopriL (PRINIVIL,ZESTR IL) 2.5 mg tablet Take 1 tablet (2.5 mg total) by mouth 1 (one) time each day. 10/07/2020 loratadine (CLARITIN) 10 mg tablet Take 1 tablet (10 mg total) by mouth 1 (one) time each day. 2014 miconazole (MICATIN) 2 % cream Apply topically 2 (two) times a day. 28.35 g 09/26/2024 multivitamin tablet Take 1 tablet by mouth 1 (one) time each day. 07/08/2022 omega-3 fatty acids 1,000 mg capsule Take 1 capsule by mouth 1 (one) time each day in the morning. 05/05/2022 ondansetron (ZOFRAN) 8 mg tablet Take 1 tablet (8 mg total) by mouth every 12 hours as needed. 10/27/2022 oxyBUTYnin XL (DITROPAN-XL) 5 mg 24 hr tablet Take 1 tablet orally daily 09/21/2022 pantoprazole (PROTONIX) 40 mg EC tablet Take 1 tablet (40 mg total) by mouth. 09/21/2022 pioglitazone (ACTOS) 30 mg tablet Take 1 tablet (30 mg total) by mouth daily. 06/10/2022 predniSONE (DELTASONE) 50 mg tablet Take 1 tablet (50 mg total) by mouth 2 (two) times a day. Taking on days 2-5 following each chemotherapy treatment day. rosuvastatin (CRESTOR) 40 mg tablet Take 1 tablet (40 mg total) by mouth 1 (one) time each day. 09/14/2022 senna-docusate (PERICOLACE) 8.6-50 mg per tablet Take 1 tablet by mouth daily. 11/30/2022 simethicone (MYLICON) 80 mg chewable tablet TOME ERENDIRA TABLETA POR V A ORAL CUATRO VECES AL D A CUANDO SEA NECESARIO FOR GAS PAIN/BLOATING 09/16/2022 topiramate (TOPAMAX) 25 mg tablet Take 1 tablet (25 mg total) by mouth 2 (two) times a day. 10/26/2015 traMADoL (ULTRAM) 50 mg tablet Take 1 tablet (50 mg total) by mouth every 6 (six) hours if needed for severe pain. for pain Max Daily Amount: 200 mg 64 tablet 2 08/15/2024 traZODone (DESYREL) 50 mg tablet 09/14/2022 venlafaxine XR (EFFEXOR-XR) 150 mg 24 hr capsule Take 1 capsule (150 mg total) by mouth every morning. 09/14/2022 fluconazole (DIFLUCAN) 150 mg tablet Take 1 tablet (150 mg total) by mouth 1 (one) time for 1 dose. Take in 72 hours if still having symptoms 1 tablet 09/26/2024 5 documented as of this encounter Ordered Prescriptions Prescription Sig Dispense Quantity Refills Last Filled Start Date End Date miconazole (MICATIN) 2 % cream Apply topically 2 (two) times a day. 28.35 g 09/26/2024 fluconazole (DIFLUCAN) 150 mg tablet Take 1 tablet (150 mg total) by mouth 1 (one) time for 1 dose. Take in 72 hours if still having symptoms 1 tablet 09/26/2024 fluconazole (DIFLUCAN) 150 mg tablet Take 1 tablet (150 mg total) by mouth 1 (one) time for 1 dose. 1 tablet 09/26/2024 5 documented in this encounter Discharge Disposition Disposition Code Departure Means Destination Comment s Home or Self Care documented in this encounter Progress Notes * Emily Contreras RN - 09/25/2024 6:03 PM EST Pt had an appointment with pcp today and reports blood sugar 352. Pt is on insulin at home. Pcp checked a urine sample as pt co burning itching for 1 month . Pcp then sent pt to the er because she may have a uti . * Nyasia Guzman RN - 09/25/2024 5:00 PM EST PT states her blood sugar is running high - read high on meter and + ketones in urine * ELLIOTT Kahn - 09/25/2024 4:59 PM EST Emergency Medicine Note Patient Name: Za Mauro Initial Evaluation: 09/25/2024 : 1970 Patient's PCP: Grisel Meraz MD Emergency Physician: ELLIOTT Kahn History of Present Illness Chief Complaint: Chief Complaint Patient presents with ??? Hyperglycemia PT sent in by endocrinology for elevated blood sugars HPI: 54-year-old female with history of diabetes, colon cancer sent into ED by her outpatient provider for evaluation of hyperglycemia. Patient reports that her blood sugars have been running high athome and she is currently working on managing this with her at home insulin Humalog/Lantus has beenmanaged by her dot net architect. Patient reports that she has no abdominal pain, nausea or vomiting,fever chills, headache, lightheadedness or dizziness. She does have a mild cough productive of yellow sputum, does endorse sick contacts. She is not concerned about this cough, denies that it is worsening. She has no chest pain or dyspnea, fever or chills. She does endorse that she has some increased urinary frequency and urinary discomfort as well as a itch/redness in her genitalia. She is not presently sexually active, denies any concerns for STD or STI. Denies abnormal vaginal bleeding or discharge. ROS: I have performed a ROS with the pertinent positives and negatives documented in the history ofpresent illness. Previous History Past Medical History: Diagnosis Date ??? Colon cancer (CMS/HCC) ??? Diabetes mellitus (CMS/HCC) History reviewed. No pertinent surgical history. Social History Tobacco Use ??? Smoking status: Never ??? Smokeless tobacco: Never Substance Use Topics ??? Alcohol use: Never ??? Drug use: Never Family History Problem Relation Name Age of Onset ??? Cancer Mother Colon is allergic to hydrocodone and oxycodone. No current facility-administered medications on file prior to encounter. Current Outpatient Medications on File Prior to Encounter Medication Sig Dispense Refill ??? acetaminophen (TYLENOL) 500 mg tablet TOME DOS TABLETAS POR V A ORAL CADA OCHO HORAS ??? allopurinoL (ZYLOPRIM) 300 mg tablet Take 1 tablet (300 mg total) by mouth 1 (one) time each day. ??? budesonide-formoteroL (Symbicort) 160-4.5 mcg/actuation inhaler ??? doxycycline (VIBRAMYCIN) 100 mg capsule Take 1 capsule (100 mg total) by mouth 2 (two) times a day. ??? enoxaparin (LOVENOX) 40 mg/0.4 mL syringe ??? fenofibrate (TRICOR) 48 mg tablet Take 1 tablet (48 mg total) by mouth daily. ??? fluticasone furoate (Arnuity Ellipta) 100 mcg/actuation blister with device inhaler INHLE 1 PUFF INTO THE LUNGS TWICE A DAY ??? gabapentin (NEURONTIN) 300 mg capsule ??? hydrOXYzine HCL (ATARAX) 50 mg tablet ??? insulin glargine (Lantus Solostar U-100 Insulin) 100 unit/mL (3 mL) injection pen Inject 20 Units under the skin every night at bedtime. ??? insulin lispro (HumaLOG KwikPen) 100 unit/mL injection pen INJECT 2 TO 16 UNITS SUBCUTANEOUSLY FOUR TIMES DAILY ??? lidocaine-prilocaine (EMLA) 2.5-2.5 % cream Apply topically as needed. ??? lisinopriL (PRINIVIL,ZESTRIL) 2.5 mg tablet Take 1 tablet (2.5 mg total) by mouth 1 (one) time each day. ??? loratadine (CLARITIN) 10 mg tablet Take 1 tablet (10 mg total) by mouth 1 (one) time each day. ??? multivitamin tablet Take 1 tablet by mouth 1 (one) time each day. ??? omega-3 fatty acids 1,000 mg capsule Take 1 capsule by mouth 1 (one) time each day in the morning. ??? ondansetron (ZOFRAN) 8 mg tablet Take 1 tablet (8 mg total) by mouth every 12 hours as needed. ??? oxyBUTYnin XL (DITROPAN-XL) 5 mg 24 hr tablet Take 1 tablet orally daily ??? pantoprazole (PROTONIX) 40 mg EC tablet Take 1 tablet (40 mg total) by mouth. ??? pioglitazone (ACTOS) 30 mg tablet Take 1 tablet (30 mg total) by mouth daily. ??? predniSONE (DELTASONE) 50 mg tablet Take 1 tablet (50 mg total) by mouth 2 (two) times a day. Taking on days 2-5 following each chemotherapy treatment day. ??? rosuvastatin (CRESTOR) 40 mg tablet Take 1 tablet (40 mg total) by mouth 1 (one) time each day. ??? senna-docusate (PERICOLACE) 8.6-50 mg per tablet Take 1 tablet by mouth daily. ??? simethicone (MYLICON) 80 mg chewable tablet TOME ERENDIRA TABLETA POR V A ORAL CUATRO VECES AL D A CUANDO SEA NECESARIO FOR GAS PAIN/BLOATING ??? topiramate (TOPAMAX) 25 mg tablet Take 1 tablet (25 mg total) by mouth 2 (two) times a day. ??? traMADoL (ULTRAM) 50 mg tablet Take 1 tablet (50 mg total) by mouth every 6 (six) hours if needed for severe pain. for pain Max Daily Amount: 200 mg 64 tablet 2 ??? traZODone (DESYREL) 50 mg tablet ??? venlafaxine XR (EFFEXOR-XR) 150 mg 24 hr capsule Take 1 capsule (150 mg total) by mouth every morning. Physical Exam ED Triage Vitals Temp Heart Rate Resp BP 09/25/24 1801 09/25/24 1801 09/25/24 2250 09/25/24 1801 36.3 ??C (97.3 ??F) 92 18 112/83 SpO2 Temp Source Heart Rate Source Patient Position 09/25/24 1801 09/25/24 1801 09/26/24 0238 09/26/24 0238 96 % Tympanic Monitor Sitting BP Location FiO2 (%) 09/26/24 0238 -- Right arm Physical Exam Constitutional: General: She is awake. She is not in acute distress. Appearance: Normal appearance. She is not ill-appearing or toxic-appearing. HENT: Head: Normocephalic and atraumatic. Eyes: Conjunctiva/sclera: Conjunctivae normal. Cardiovascular: Rate and Rhythm: Normal rate and regular rhythm. Pulses: Normal pulses. Heart sounds: Normal heart sounds. Pulmonary: Effort: Pulmonary effort is normal. No respiratory distress or retractions. Breath sounds: Normal breath sounds. Abdominal: General: Abdomen is flat. Tenderness: There is no abdominal tenderness. Genitourinary: Comments: Exam deferred Musculoskeletal: General: Normal range of motion. Cervical back: Normal range of motion and neck supple. Skin: General: Skin is warm and dry. Neurological: Mental Status: She is alert, oriented to person, place, and time and easily aroused. Mental status is at baseline. Gait: Gait normal. Psychiatric: Mood and Affect: Mood normal. Behavior: Behavior normal. Thought Content: Thought content normal. Judgment: Judgment normal. Results Labs Reviewed COMPREHENSIVE METABOLIC PANEL - Abnormal Result Value Sodium 131 (*) Potassium 4.1 Chloride 100 CO2 28 Anion Gap 3 Glucose 310 (*) BUN 11 Creatinine 0.76 eGFR 94 BUN/Creatinine Ratio 14.5 Calcium 9.3 AST (SGOT) 33 ALT (SGPT) 46 Alkaline Phosphatase 103 Total Protein 7.9 Albumin 4.1 Total Bilirubin 0.6 VENOUS BLOOD GAS - Abnormal pH, Adolph 7.41 pCO2, Adolph 48 pO2, Adolph 21 (*) HCO3, Venous 26.8 (*) O2 Sat, Adolph 44.7 Base Excess, Adolph 4.6 (*) URINALYSIS WITH REFLEX MICROSCOPIC - Abnormal Specific Hunter Urine 1.024 pH, Urine 6.0 Leukocytes, Urine Negative Nitrite, Urine Negative Protein, Urine Negative Glucose, Urine >=1000 (*) Ketones, Urine Negative Urobilinogen, Urine 1.0 Bilirubin, Urine Negative Blood, Urine Negative POCT GLUCOSE, BLOOD - Abnormal Glucose POCT 232 (*) LIPASE - Normal Lipase 39 MAGNESIUM - Normal Magnesium 2.0 OSMOLALITY - Normal Osmolality Aleksey 298 BETA HYDROXYBUTYRATE - Normal Beta-Hydroxybutyrate 1.4 CBC AND DIFFERENTIAL Narrative: The following orders were created for panel order CBC and differential. Procedure Abnormality Status --------- ------ CBC auto differential[[id number]] Final result Please view results for these tests on the individual orders. URINALYSIS WITH REFLEX MICROSCOPIC Narrative: The following orders were created for panel order Urinalysis with reflex microscopic. Procedure Abnormality Status --------- ------ Urinalysis with reflex ...[[id number]] Abnormal Final result Please view results for these tests on the individual orders. CBC WITH AUTO DIFFERENTIAL WBC 6.6 RBC 4.80 Hemoglobin 13.9 Hematocrit 41.2 MCV 85.5 MCH 28.8 MCHC 33.7 RDW 12.2 Platelets 235 MPV 10.4 NRBC 0.0 NRBC Absolute 0.00 Neutrophils Relative 52.3 Lymphocytes Relative 34.3 Monocytes Relative 9.3 Eosinophils Relative 2.4 Basophils Relative 1.4 Immature Granulocytes Relative 0.3 Neutrophils Absolute 3.43 Lymphocytes Absolute 2.25 Monocytes Absolute 0.61 Eosinophils Absolute 0.16 Basophils Absolute 0.09 Immature Granulocytes Absolute 0.02 Abnormal Labs Reviewed COMPREHENSIVE METABOLIC PANEL - Abnormal; Notable for the following components: Result Value Sodium 131 (*) Glucose 310 (*) All other components within normal limits VENOUS BLOOD GAS - Abnormal; Notable for the following components: pO2, Adolph 21 (*) HCO3, Venous 26.8 (*) Base Excess, Adolph 4.6 (*) All other components within normal limits URINALYSIS WITH REFLEX MICROSCOPIC - Abnormal; Notable for the following components: Glucose, Urine >=1000 (*) All other components within normal limits POCT GLUCOSE, BLOOD - Abnormal; Notable for the following components: Glucose POCT 232 (*) All other components within normal limits XR Chest 2 Views (Results Pending) I have discussed the incidental/abnormal imaging and/or lab abnormalities with the patient and haveinstructed them the need for further evaluation and workup with their primary care doctor. I have provided the patient with a paper copy of the abnormality. The laboratory results, imaging results and other diagnostic exam results were reviewed in the EMR. EKG Interpretation Critical Care Time None Medical Decision Making DDX: Yeast infection, UTI, hyperglycemia, uncontrolled diabetes, DKA low suspicion, pneumonia low suspicion, viral illness 54-year-old female with concerns for vaginal itching and discomfort, likely yeast infection from a clinical standpoint as well as in the setting of her uncontrolled hyperglycemia. [id number] todaywas within appropriate limits, I do not believe that she requires emergent intervention. No signs of DKA, no electrolyte disturbances. She was sent for chest x-ray on the basis of her cough but I do not find any concerns for acute pneumonia. Given Diflucan in the ED, will be discharged with an additional dose with instructions to take in 72 hours if her symptoms persist as well as a topical cream. She will be encouraged to follow-up with her regular provider for continued outpatient management of her blood sugars. Medications fluconazole (DIFLUCAN) tablet 150 mg (150 mg oral Given 09/26/24 0432) Clinical Impressions as of 09/26/24 0645 Yeast infection Hyperglycemia Procedures Procedures Diagnosis No diagnosis found. Disposition Discharge ED Prescriptions Medication Sig Dispense Start Date End Date Auth. Provider fluconazole (DIFLUCAN) 150 mg tablet (Status: Discontinued) Take 1 tablet (150 mg total) by mouth 1(one) time for 1 dose. 1 tablet 09/26/2024 09/26/2024 ELLIOTT Kahn miconazole (MICATIN) 2 % cream Apply topically 2 (two) times a day. 28.35 g 09/26/2024 10/26/2024 ELLIOTT Kahn fluconazole (DIFLUCAN) 150 mg tablet (Expires today) Take 1 tablet (150 mg total) by mouth 1 (one) time for 1 dose. Take in 72 hours if still having symptoms 1 tablet 09/26/2024 09/26/2024 ELLIOTT Kahn Physician Attestation ELLIOTT Kahn 09/26/24 0438 ELLIOTT Kahn 09/26/24 0645 Cosigned by Judi Carter MD at 09/26/2024 8:05 AM EST documented in this encounter Plan of Treatment Upcoming Encounters Date Type Department Care Team (Late st Contact Info) Description 02/24/2025 3:30 PM EDT Office Visit [facility] Hematology Oncology [address] [place] [id number] Nirmal Cooper MD [address] [place] [address] documented as of this encounter Procedures Procedure Name Priority Date/Time Associated Diagnosis Comments XR CHEST 2 VIEWS STAT 09/26/2024 3:36 AM EST POCT GLUCOSE BLOOD Routine 09/26/2024 2: 43 AM EST URINALYSIS WITH REFLEX MICROSCOPIC STAT 09/25/2024 10:50 PM EST H[place]ALGO URINE CULTURE TUBE Routine 09/25/19 10:50 PM EST URINALYSIS WITH REFLEX MICROSCOPIC STAT 09/25/2024 10:50 PM EST EXTRA TUBES Routine 09/25/2024 10:50 PM EST VENOUS BLOOD GAS STAT 09/25/2024 10:3 7 PM EST BETA HYDROXYBUTYRATE STAT 09/25/2024 7:30 PM EST CBC WITH AUTO DIFFERENTIAL STAT 09/25/2024 7:30 PM EST CBC AND DIFFERENTIAL STAT 09/25/2024 7:30 PM EST OSMOLALITY STAT 09/25/2024 7:30 PM EST MAGNESIUM STAT 09/25/2024 7:30 PM EST LIPASE STAT 09/25/2024 7:30 PM EST COMPREHENSIVE METABOLIC PANEL STAT 09/25/2024 7:30 PM EST documented in this encounter Results [...] Signed Date: 09/26/2024 08:07 ET Workstation ID: [id number] Transcribed By: Self Edit Transcribed Date: 09/26/2024 [...] Signed Date: 09/26/2024 08:07 ET Workstation ID: [id number] Transcribed By: Self Edit Transcribed Date: 09/26/2024 08:06 ET Yun GALLAGHER IMG XR PROCEDURES Final Result * (ABNORMAL) POCT Glucose, blood (09/26/2024 2:43 AM EST) [facility] Signature Glucose POCT 232(H) 70 - 100 mg/dL 09/26/2024 2:44 AM EST [facility] Blood Capillary blood specimen / Unknown 09/26/2024 2:43 AM EST 09/26/2024 2:45 AM EST Generic Provider Poct LAB POINT OF CARE TEST DOCKED DEVICE UNSOLICITED RESULTS Final Result [facility] [address] [place] [address], [place] [phone] * [place] urine culture tube (09/25/2024 10:50 PM EST) Pathologist [facility] Extra Tube Hold for add-ons. 09/26/2024 1:02 AM [facility] Comment:Auto resulted. Urine Urine specimen obtained by clean catch procedure / Unknown 09/25/2024 10:50 PM EST 09/25/2024 11:14 PM EST us Audra GALLAGHER LAB URINE ORDERABLES Final Re sult [facility] [address] [place] [address], [place] [phone] * (ABNORMAL) Urinalysis with reflex microscopic (09/25/2024 10:50 PM EST) [facility] Specific Hunter Urine 1.024 1.003 - 1.030 LAB URINALYSIS - AUTOMATED METHOD 09/25/2024 11:19 PM [facility] pH, Urine 6.0 5.0 - 8.0 pH LAB URINALYSIS - AUTOMATED METHOD 09/25/2024 11:19 PM [facility] Leukocytes, Urine Negative Negative LAB URINALYSIS - AUTOMATED METHOD 09/25/2024 11:19 PM [facility] Nitrite, Urine Negative Negative LAB URINALYSIS - AUTOMATED METHOD 09/25/2024 11:19 PM [facility] Protein, Urine Negative <=Trace mg/dL LAB URINALYSIS - AUTOMATED METHOD 09/25/2024 11:19 PM [facility] Glucose, Urine >=1000(A) Negative mg/dL LAB URINALYSIS - AUTOMATED METHOD 09/25/2024 11:19 PM [facility] Ketones, Urine Negative Negative mg/dL LAB URINALYSIS - AUTOMATED METHOD 09/25/2024 11:19 PM [facility] Urobilinogen , Urine 1.0 0.2 - 1.0 mg/dL LAB URINALYSIS - AUTOMATED METHOD 09/25/2024 11:19 PM EST [facility] Bilirubin, Urine Negative Negative LAB URINALYSIS - AUTOMATED METHOD 09/25/2024 11:19 PM [facility] Blood, Urine Negative Negative LAB URINALYSIS - AUTOMATED METHOD 09/25/2024 11:19 PM [facility] Urine Urine specimen obtained by clean catch procedure / Unknown Non-blood Collection / Unknown 09/25/2024 10:50 PM EST 09/25/2024 11:13 PM EST us Savage Frank DO LAB URINE ORDERABLES Final Resu lt [facility] [address] [place] [address], * (ABNORMAL) Venous blood gas (09/25/2024 10:37 PM EST) pH, Adolph 7.41 7.32 - 7.42 pH 09/25/2024 10:45 PM [facility] pCO2, Adolph 48 41 - 51 mmHg 09/25/2024 10:45 PM [facility] pO2, Adolph 21(L) 25 - 40 mmHg 09/25/2024 10:45 PM [facility] HCO3, Venous 26.8(H) 22.0 - 26.0 mmol/L 09/25/2024 10:45 PM [facility] O2 Sat, Adolph 44.7 % 09/25/2024 10:45 PM [facility] Base Excess, Adolph 4.6(H) -2.0 - 2.0 mmol/L 09/25/2024 10:45 PM [facility] Blood Venous blood specimen / Unknown Venipuncture / Unknown 09/25/2024 10:37 PM EST 09/25/2024 10:41 PM EST us Savage Frank DO LAB BLOOD ORDERABLES Final Resu lt [facility] [address] [place] [address], [place] [phone] * CBC auto differential (09/25/2024 7:30 PM EST) [facility] WBC 6.6 4.8 - 10.8 K/mcL LAB HEMETOLOGY METHOD 09/25/2024 7:52 PM EST [facility] RBC 4.80 3.80 - 4.80 M/mcL LAB HEMETOLOGY METHOD 09/25/2024 7:52 PM [facility] Hemoglobin 13.9 11.5 - 16.0 g/dL LAB HEMETOLOGY METHOD 09/25/2024 7:52 PM [facility] Hematocrit 41.2 35.0 - 47.0 % LAB HEMETOLOGY METHOD 09/25/2024 7:52 PM [facility] MCV 85.5 79.0 - 98.0 FL LAB HEMETOLOGY METHOD 09/25/2024 7:52 PM [facility] MCH 28.8 27.0 - 32.0 pcg LAB HEMETOLOGY METHOD 09/25/2024 7:52 PM [facility] MCHC 33.7 32.0 - 37.0 g/dL LAB HEMETOLOGY METHOD 09/25/2024 7:52 PM [facility] RDW 12.2 11.0 - 15.0 % LAB HEMETOLOGY METHOD 09/25/2024 7:52 PM [facility] Platelets 235 130 - 400 K/mcL LAB HEMETOLOGY METHOD 09/25/2024 7:52 PM [facility] MPV 10.4 7.0 - 11.0 FL LAB HEMETOLOGY METHOD 09/25/2024 7:52 PM [facility] NRBC 0.0 <1.0 % LAB HEMETOLOGY METHOD 09/25/2024 7:52 PM [facility] NRBC Absolute 0.00 <0.10 K/mcL LAB HEMETOLOGY METHOD 09/25/2024 7:52 PM [facility] Neutrophils Relative 52.3 % LAB HEMETOLOGY METHOD 09/25/2024 7:52 PM [facility] Lymphocytes Relative 34.3 % LAB HEMETOLOGY METHOD 09/25/2024 7:52 PM [facility] Monocytes Relative 9.3 % LAB HEMETOLOGY METHOD 09/25/2024 7:52 PM [facility] Eosinophils Relative 2.4 % LAB HEMETOLOGY METHOD 09/25/2024 7:52 PM [facility] Basophils Relative 1.4 % LAB HEMETOLOGY METHOD 09/25/2024 7:52 PM [facility] Immature Granulocytes Relative 0.3 % LAB HEMETOLOGY METHOD 09/25/2024 7:52 PM [facility] Neutrophils Absolute 3.43 1.50 - 7.00 K/mcL LAB HEMETOLOGY METHOD 09/25/2024 7:52 PM [facility] Lymphocytes Absolute 2.25 1.00 - 5.00 K/mcL LAB HEMETOLOGY METHOD 09/25/2024 7:52 PM [facility] Monocytes Absolute 0.61 0.20 - 1.00 K/mcL LAB HEMETOLOGY METHOD 09/25/2024 7:52 PM [facility] Eosinophils Absolute 0.16 0.00 - 0.50 K/mcL LAB HEMETOLOGY METHOD 09/25/2024 7:52 PM [facility] Basophils Absolute 0.09 0.00 - 0.20 K/mcL LAB HEMETOLOGY METHOD 09/25/2024 7:52 PM EST [facility] Immature Granulocytes Absolute 0.02 0.00 - 0.03 K/mcL LAB HEMETOLOGY METHOD 09/25/2024 7:52 PM EST [facility] Blood Venous blood specimen / Unknown Venipuncture / Unknown 09/25/2024 7:30 PM EST 09/25/2024 7:37 PM EST Savage Frank DO LAB BLOOD ORDERABLES Final Resu lt Performing Organization Address City/[facility]/ZIP Co de Phone Number [facility] [address] [place] [address], [place] [phone] * Beta hydroxybutyrate (09/25/2024 7:30 PM EST) Beta-Hydroxybu tyrate 1.4 0.2 - 2.8 mg/dL LAB CHEMISTRY METHOD 09/25/2024 8:11 PM EST [facility] Blood Venous blood specimen / Unknown Venipuncture / Unknown 09/25/2024 7:30 PM EST 09/25/2024 7:37 PM EST us Savage Frank DO LAB BLOOD ORDERABLES Final Resu lt [facility] [address] [place] [address], [place] [phone] * Osmolality (09/25/2024 7:30 PM EST) Osmolality Aleksey 298 280 - 300 mOsm/kg LAB CHEMISTRY METHOD 09/25/2024 8:34 PM EST [facility] Blood Venous blood specimen / Unknown Venipuncture / Unknown 09/25/2024 7:30 PM EST 09/25/2024 7:37 PM EST Savage Frank DO LAB BLOOD ORDERABLES Final Resu lt Performing Organization Address [facility] de Phone Number [facility] [address] [place] [address], * Magnesium (09/25/2024 7:30 PM EST) Pathologist [facility] Magnesium 2.0 1.9 - 2.6 mg/dL LAB CHEMISTRY METHOD 09/25/2024 8:11 PM EST [facility] Blood Venous blood specimen / Unknown Venipuncture / Unknown 09/25/2024 7:30 PM EST 09/25/2024 7:37 PM EST Savage Frank DO LAB BLOOD ORDERABLES Final Resu lt Performing Organization Address [facility] de Phone Number [facility] [address] [place] [address], [place] [phone] * Lipase (09/25/2024 7:30 PM EST) [facility] Lipase 39 13 - 75 unit/L LAB CHEMISTRY METHOD 09/25/2024 8:11 PM EST [facility] Blood Venous blood specimen / Unknown Venipuncture / Unknown 09/25/2024 7:30 PM EST 09/25/2024 7:37 PM EST Savage Frank DO LAB BLOOD ORDERABLES Final Resu lt Performing Organization Address [facility]/ZIP Co de Phone Number [facility] [address] [place] [address], [place] [phone] * (ABNORMAL) Comprehensive metabolic panel (09/25/2024 7:30 PM EST) Pathologist [facility] Sodium 131(L) 133 - 145 mmol/L LAB CHEMISTRY METHOD 09/25/2024 8:22 PM EST [facility] Potassium 4.1 3.5 - 5.5 mmol/L LAB CHEMISTRY METHOD 09/25/2024 8:22 PM [facility] Chloride 100 96 - 110 mmol/L LAB CHEMISTRY METHOD 09/25/2024 8:22 PM [facility] CO2 28 21 - 32 mmol/L LAB CHEMISTRY METHOD 09/25/2024 8:22 PM [facility] Anion Gap 3 3 - 11 LAB CHEMISTRY METHOD 09/25/2024 8:22 PM [facility] Glucose 310(H) 70 - 100 mg/dL LAB CHEMISTRY METHOD 09/25/2024 8:22 PM [facility] BUN 11 5 - 25 mg/dL LAB CHEMISTRY METHOD 09/25/2024 8:22 PM [facility] Creatinine 0.76 0.50 - 1.10 mg/dL LAB CHEMISTRY METHOD 09/25/2024 8:22 PM [facility] eGFR 94 >=60 mL/min/1. 73m2 LAB CHEMISTRY METHOD 09/25/2024 8:22 PM [facility] Comment:Calculation based on the??Chronic Kidney Disease Epidemiology Collaboration (CKD-EPI) equation refit??without adjustment for race. BUN/Creatinine Ratio 14.5 LAB CHEMISTRY METHOD 09/25/2024 8:22 PM [facility] Calcium 9.3 8.5 - 10.5 mg/dL LAB CHEMISTRY METHOD 09/25/2024 8:22 PM [facility] AST (SGOT) 33 10 - 42 unit/L LAB CHEMISTRY METHOD 09/25/2024 8:22 PM [facility] ALT (SGPT) 46 10 - 60 unit/L LAB CHEMISTRY METHOD 09/25/2024 8:22 PM [facility] Alkaline Phosphatase 103 42 - 121 unit/L LAB CHEMISTRY METHOD 09/25/2024 8:22 PM [facility] Total Protein 7.9 6.0 - 8.0 g/dL LAB CHEMISTRY METHOD 09/25/2024 8:22 PM [facility] Albumin 4.1 3.2 - 5.0 g/dL LAB CHEMISTRY METHOD 09/25/2024 8:22 PM EST [facility] Total Bilirubin 0.6 0.0 - 1.4 mg/dL LAB CHEMISTRY METHOD 09/25/2024 8:22 PM EST [facility] Blood Venous blood specimen / Unknown Venipuncture / Unknown 09/25/2024 7:30 PM EST 09/25/2024 7:37 PM EST us Savage Frank DO LAB BLOOD ORDERABLES Final Resu lt [facility] [address] [place] [address], documented in this encounter Visit Diagnoses Diagnosis Yeast infection- Primary Hyperglycemia Other abnormal glucose documented in this encounter Administered Medications Inactive Administered Medications - up to 3 most recent administrations Medication Order MAR Action Action Date Dose Rate Site fluconazole (DIFLUCAN) tablet 150 mg 150 mg, oral, Once, On Arely 09/26/24 at 0423, For 1 dose, HAZARDOUS Drug Precautions - Low Risk (Category A/NIOSH Group 3) Reproductive Risk Only: - Single pair of ASTM standard [id number] certified chemotherapy gloves - Eye protection (goggles or face shield) required only with a potential for facial contact (i.e. concern for spitting or vomiting of the dose during or after administration) - Staff at reproductive risk (actively trying to conceive, or may be become , and ): chemo certified gown and an N95 respirator required when crushing meds (crushing of tabs allowed only in closed pouches) or opening of capsules only for allowable dosage forms, Indication: Candidiasis Given 09/26/2024 4:32 AM EST 150 mg documented in this encounter Discontinued Medications Medication Sig Discontinue Reason Start Date End Da te fluconazole (DIFLUCAN) 150 mg tablet Take 1 tablet (150 mg total) by mouth 1 (one) time for 1 dose. 09/26/2024 09/26/2024 documented as of this encounter Active and Recently Administered Medications Times are shown in EST. Scheduled Medication Order 09/24/2024 09/25/2024 09/26/2024 fluconazole (DIFLUCAN) tablet 150 mg (COMPLETED) 150 mg, oral, Once, On Arely 09/26/24 at 0423, For 1 dose, HAZARDOUS Drug Precautions - Low Risk (Category A/NIOSH Group 3) Reproductive Risk Only: - Single pair of ASTM standard [id number] certified chemotherapy gloves - Eye protection (goggles or face shield) required only with a potential for facial contact (i.e. concern for spitting or vomiting of the dose during or after administration) - Staff at reproductive risk (actively trying to conceive, or may be become , and ): chemo certified gown and an N95 respirator required when crushing meds (crushing of tabs allowed only in closed pouches) or opening of capsules only for allowable dosage forms, Indication: Candidiasis 0432 (Given - Provid er: Laura Wolf RN) documented in this encounter Orders Medications Ordered That [place] ht Not Have Been Administered Count Last Ordered Date First Ordered Date fluconazole (DIFLUCAN) tablet 150 mg 1 09/05 documented in this encounter Care Teams Lithographic General Worker Relationship Specialty Start Date End Date Grisel Meraz MD [address] [place] [address] [phone] PCP - General 09/16/22 documented as of this encounter
[2024-10-18 15:16] VITALS: BP 118/72; PULSE 83; BMI 27.5
[2024-10-18 15:23] LABS: Glucose, Whole Blood 129 mg/dL (60-115)
== END 2024-10-18 15:57 | disposition home or self-care (01) ==
PROVIDERS: PCP Pediatrics; Visit Provider Nurse Practitioner Adult Health
DX: E11.65 Type 2 diabetes mellitus with hyperglycemia (principal); Z79.4 Long term (current) use of insulin
CPT/HCPCS: 99214; G2211

== ENCOUNTER → 2024-10-18 15:00 | Outpatient (BNVA) | payer OTHER, MEDICAID, SELFPAY | PROVIDERS: PCP Pediatrics; Visit Provider Nurse Practitioner Adult Health | DX: E11.65 Type 2 diabetes mellitus with hyperglycemia (principal); E11.40 Type 2 diabetes mellitus with diabetic neuropathy, unspecified; Z79.4 Long term (current) use of insulin; Z96.41 Presence of insulin pump (external) (internal) | CPT/HCPCS: 82947 ==

== ENCOUNTER 2024-10-22 12:55 | Outpatient (AMB) | payer OTHER, MEDICAID, SELFPAY ==
--- NOTE | 2024-10-22 13:18 | A.OFFVIS_ITS ---
Intake Intake Visit Reasons: 60 min Coal Mill Operator Required: Yes Coal Mill Operator Language: Nurse Companion Name: [facility] Accompanied by: Self / Same As Patient Allergies acetaminophen [From Percocet] Allergy (Severe, Verified 10/09/24 15:30) Anaphylaxis oxycodone [From Percocet] Allergy (Severe, Verified 10/09/24 15:30) Anaphylaxis Vicodin Allergy (Unknown, Uncoded 10/09/24 15:30) Anaphylaxis HPI Comprehensive Diabetes Asmnt Most Recent Diabetes Results: Microalb/Creat Ratio 12.6 ug/mg cr (<30) 09/06/23 Cholesterol 211 mg/dL (<200) H 09/06/23 HDL Cholesterol 57 mg/dL (>40) 09/06/23 Triglycerides 220 mg/dL (<150) H 09/06/23 Creatinine 0.67 mg/dL (0.5-1.4) 09/06/23 Blood Urea Nitrogen 18 mg/dL (9-16) H 09/06/23 Sodium 139 mmol/L (135-145) 09/06/23 Potassium 4.4 mmol/L (3.3-5.1) 09/06/23 Chloride 105 mmol/L (96-108) 09/06/23 Carbon Dioxide 28 mmol/L (22-29) 09/06/23 Calcium 9.6 mg/dL (8.4-10.2) 09/06/23 AST 27 U/L (5-31) 03/04/21 ALT 39 U/L (0-31) H 03/04/21 Total Protein 8.3 g/dL (6.5-8.0) H 03/04/21 Albumin 4.4 g/dL (3.5-5.0) 03/04/21 [facility] Medical History Cellulitis Right groin pain Arthritis Elevated LFTs Fibromyalgia Bunion, left foot Migraine Asthma Seasonal allergies Mood disorder Joint pain Hyperlipidemia LDL goal <100 Type 2 diabetes mellitus with polyneuropathy Type 2 diabetes mellitus with hyperglycemia Surgical History Hx of colonoscopy (~2019) Hx of cholecystectomy Hx of foot surgery History of bilateral carpal tunnel release Hx of cataract surgery Family History Father Hypertension Mother Diabetes Colon cancer Brother Liver cancer Social History Household Members: Other Household Members Other:: Sister Alcohol intake: current Alcohol intake frequency: does not drink Patient Tobacco Use Status: Never used Tobacco Assessment & Plan Assessment & Plan (1) Type 2 diabetes mellitus with hyperglycemia: Code(s): E11.65 - Type 2 diabetes mellitus with hyperglycemia Qualifiers: Diabetes mellitus half-way insulin use: with supervisor long goods use Qualified Code(s): E11.65 - Type 2 diabetes mellitus with hyperglycemia; Z79.4 - intermediate (current) use of insulin Plan: Patient presents for pump training for iLet pump and CGM training today. The following topics were reviewed today: -Pump therapy basic concepts: Basal/bolus -For most effective glucose control bolus prior to meals iLet Alerts: ??? High Alert: 300 mg/dl ??? Low Alert: 75 mg/dl CGM: Above target:55.5% At target:44.3% Below target:0% Patient's average glucose for the past 14 days 193 mg/dL TDD:86.6 Basal:41.6 Patient's last A1c 12.1% on 10/09/2024 Since last A1c patient has resumed insulin pump therapy, there is a significant improvement in patient's glucose levels Patient is not announcing meals. Recommended to patient she announce coffee in the morning, she uses [employer] kathie lla Creamer and 2 tbsp of sugar this is causing glucose levels to rise. In addition encourage patient to announce other meals as well. Patient reports she eats very infrequently, but reviewing patient's data she is experiencing several instances of hyperglycemia daily. Patient denies any hypoglycemia at this time Discussed with patient the importance of cleaning insulin infusion set area with antiseptic prescribed by CRIPPLE CHASER. Patient stated at this time she can not afford the antiseptic and she has been using alcohol. Instructed patient to call provider if she notices any redness, swelling, hot to the touch or pain at infusion set site. Instructed patient to only use room temperature insulin, how to load cartridge or fill pod, with insulin. Fill tubing and cannula (if applicable) Troubleshooting after starting new pod or inserting new insulin set: Occlusion, adhesive tape sensitivity, redness Check BG 2 hours after site change Patient understands the basic concepts of pump therapy, how to give insulin for meals and snacks, how to troubleshoot for hyper and hypoglycemia. Patient will follow up with [facility] as instructed Patient will contact [facility] with questions or concerns, patient given IT number to support in any technical issues related to insulin pump Portions of this note were created using voice recognition software, please excuse any words or phrases that may have been misinterpreted. Coding Level of Care Code Est Pt Level 1 (44275) Diagnoses Type 2 diabetes mellitus with hyperglycemia, with long-term current use of insulin E11.65; Z79.4 Diabetes mellitus supervisor long goods insulin use: with half-way use
--- OUTSIDE RECORDS SUMMARY | 2024-10-22 13:45 | XMS_ITS | Encounter Summary ---
Author Organization [employer] Address [address] [facility] 7 [place] [address] Care Team Providers Care Eligibility Technician Name Role Phone Grisel Meraz MD Primary Care Provider [phone] Reason for Visit * Reason Comments Med Refill Encounter Details Date Type Department Care Team ([facility] Contact Info) Description 10/16/2024 Refill [facility] MED & PEDS [address] [place] [address] Grisel Meraz MD [address] [place] [address] Social History Tobacco Use Types Packs/Day Years [...] Description 10/31/2024 2:00 PM EST Nurse Only [facility] MED & PEDS [address] [place], [place] [phone] 01/09/2025 3:00 PM EDT Office Visit [facility] OPTOMETRY [address] [place] [address] Flex, Antonella, OD [address] [place] [address] documented as of this encounter Visit Diagnoses Not on filedocumented in this encounter Additional Health Concerns Assessment Noted Time PHQ-9 Depression Total Score: 21 023 11:24 AM EST documented as of this encounter Care Teams Eligibility Technician Relationship Specialty Start Date End Date Grisel Meraz MD [address] [place] [address] PCP - General Family Medicine 03/06/19 documented as of this encounter
--- OUTSIDE RECORDS SUMMARY | 2024-10-22 13:45 | XMS_ITS | Encounter Summary ---
Author Organization [email or web address] Address [address] [place] [address] Care Team Providers Care Records Supervisor Name Role Phone Grisel Meraz MD Primary Care Provider [phone] Encounter Details Date Type Department Care Team ([facility] st Contact Info) Description 07/11/2023 Abstract [facility] MEDICINE [address] [place] [address] Grisel Meraz MD [address] [place], [place] [phone] Social History Tobacco Use Types Packs/Day Years [...] Description 10/31/2024 2:00 PM EST Nurse Only [facility] CH[facility] MED & PEDS [address] [place], [place] [phone] 01/09/2025 3:00 PM EDT Office Visit [facility] OPTOMETRY [address] [place], [place] [phone] Flex, Antonella, OD [address] [place], [place] [phone] documented as of this encounter Procedures Procedure [...] documented as of this encounter Care Teams Records Supervisor Relationship Specialty Start Date End Date Grisel Meraz MD [address] [place], [place] [phone] PCP - General Family Medicine 03/06/19 documented as of this encounter
--- OUTSIDE RECORDS SUMMARY | 2024-10-22 13:45 | XMS_ITS | Encounter Summary ---
Author Organization [employer] Address [address] [facility] [address] [place] [address] Care Team Providers Care Pocketed Spring Assembler Name Role Phone Grisel Meraz MD Primary Care Provider [phone] Encounter Details Date Type Department Care Team ([facility] st Contact Info) Description 09/25/2024 Orders Only [...] Description 10/31/2024 2:00 PM EST Nurse Only [facility] CHC MED & PEDS [address] [place], [place] [phone] 01/09/2025 3:00 PM EDT Office Visit [facility] OPTOMETRY [address] [place] [address] Flex, Antonella, OD [address] [place] [address] documented as of this encounter Procedures Procedure Name Priority Date/Time Associated Diagnosis Comments GLUCOSE, WHOLE BLOOD Routine 09/25/2024 3:08 PM EST documented in this encounter Results * (ABNORMAL) Glucose, Whole Blood (09/25/2024 3:08 PM EST) [facility] Signature Glucose, Whole Blood 426() 60 - 115 mg/dL [facility] Comment:METER #: [id number] Testing performed in the Endocrinology Department [address] , [address], [facility]. 09/25/2024 3:08 PM EST 09/25/2024 3:13 PM EST us Generic External Data Provider LAB BLOOD ORDERAB LES Final Result [facility] [address] [place] [address] [phone] documented in this encounter Visit Diagnoses Not on filedocumented in this encounter Additional Health Concerns Assessment Noted Time PHQ-9 Depression Total Score: 21 023 11:24 AM EST documented as of this encounter Care Teams Pocketed Spring Assembler Relationship Specialty Start Date End Date Grisel Meraz MD [address] [place], [place] [phone] PCP - General Family Medicine 03/06/19 documented as of this encounter
--- OUTSIDE RECORDS SUMMARY | 2024-10-22 13:45 | XMS_ITS | Encounter Summary ---
Author Organization [employer] [facility] Address [address] [place] [address] 7 [place] [address] Care Team Providers Care Oxyacetylene Welder Name Role Phone Grisel Meraz MD Primary Care Provider [phone] Encounter Details Date Type Department Care Team (Latest Contact Info) Description 07/06/2022 Abstract [facility] Dental, Provider, DDS Social History Tobacco [...] Description 10/31/2024 2:00 PM EST Nurse Only [facility] CHC MED & PEDS [address] [place] [address] 01/09/2025 3:00 PM EDT Office Visit [facility] OPTOMETRY [address] [place] [address] Flex, Antonella, OD [address] [place] [address] documented as of this encounter Visit Diagnoses Not on filedocumented in this encounter Care Teams Oxyacetylene Welder Relationship Specialty Start Date End Date Grisel Meraz MD [address] [place] [address] PCP - General Family Medicine 03/06/19 documented as of this encounter
--- OUTSIDE RECORDS SUMMARY | 2024-10-22 13:45 | XMS_ITS | Clinical Summary ---
Author Organization [facility] Address [address] [place] [address] Care Team Providers Care Compounder Flavorings Name Role Phone Grisel Meraz MD Primary Care Provider [phone] Allergies Active Allergy Reactions Criticality Noted Date [...] tablet by mouth daily. 0 07/08/2022 Active [place]-3 Fatty Acids (Fish Oil) 1000 MG CAPS [...] age to complete this topic Care Teams Compounder Flavorings Relationship Specialty Start Date End Date Grisel Meraz MD [address] [place], [place] [phone] PCP - General Pediatrics 09/16/22
--- OUTSIDE RECORDS SUMMARY | 2024-10-22 13:45 | XMS_ITS | Clinical Summary ---
Author Organization [facility] Address [address] [place] [address] Phone Care Team Providers Care Track Mechanic Name Role Phone Grisel Meraz MD Primary Care Provider [phone] Allergies Active Allergy Reactions Criticality Noted Date [...] EST - 09/26/2024 4:34 AM EST Emergency [facility] Emergency [address] [place] [address] Yeast infection (Primary Dx); Hyperglycemia Discharge Disposition: Home or Self Care 08/12/2024 3:30 PM EST Office Visit [facility] Hematology Oncology [address] [place] [phone] iNrmal Cooper MD Diffuse large B-cell lymphoma of [...] Description 02/24/2025 3:30 PM EDT Office Visit [facility] Hematology Oncology [address] [place] [phone] Nirmal Cooper MD [address] [place] [address] Health Maintenance Due Date Last Done Comments [...] Signed Date: 09/26/2024 08:07 ET Workstation ID: [id number] Transcribed By: Self Edit Transcribed Date: 09/26/2024 [...] Signed Date: 09/26/2024 08:07 ET Workstation ID: [id number] Transcribed By: Self Edit Transcribed Date: 09/26/2024 08:06 ET Yun GALLAGHER IMG XR PROCEDURES Final Result * (ABNORMAL) POCT Glucose, blood (09/26/2024 2:43 AM EST) [facility] Glucose POCT 232(H) 70 - 100 mg/dL 09/26/2024 2:44 AM EST [facility] Blood Capillary blood specimen / Unknown 09/26/2024 2:43 AM EST 09/26/2024 2:45 AM EST us Generic Provider Poct LAB POINT OF CARE TEST DOCKED DEVICE UNSOLICITED RESULTS Final Result [facility] [address] [place] [address], [place] [phone] * (ABNORMAL) Urinalysis with reflex microscopic (09/25/2024 10:50 PM EST) [facility] Specific [place] Urine 1.024 1.003 - 1.030 LAB URINALYSIS - AUTOMATED METHOD 09/25/2024 11:19 PM EST [facility] pH, Urine 6.0 5.0 - 8.0 pH LAB URINALYSIS - AUTOMATED METHOD 09/25/2024 11:19 PM EST [facility] Leukocytes, Urine Negative Negative LAB URINALYSIS - AUTOMATED METHOD 09/25/2024 11:19 PM [facility] Nitrite, Urine Negative Negative LAB URINALYSIS - AUTOMATED METHOD 09/25/2024 11:19 PM [facility] Protein, Urine Negative <=Trace mg/dL LAB URINALYSIS - AUTOMATED METHOD 09/25/2024 11:19 PM [facility] Glucose, Urine >=1000(A) Negative mg/dL LAB URINALYSIS - AUTOMATED METHOD 09/25/2024 11:19 PM [facility] Ketones, Urine Negative Negative mg/dL LAB URINALYSIS - AUTOMATED METHOD 09/25/2024 11:19 PM [facility] Urobilinogen , Urine 1.0 0.2 - 1.0 mg/dL LAB URINALYSIS - AUTOMATED METHOD 09/25/2024 11:19 PM [facility] Bilirubin, Urine Negative Negative LAB URINALYSIS - AUTOMATED METHOD 09/25/2024 11:19 PM [facility] Blood, Urine Negative Negative LAB URINALYSIS - AUTOMATED METHOD 09/25/2024 11:19 PM [facility] Urine Urine specimen obtained by clean catch procedure / Unknown Non-blood Collection / Unknown 09/25/2024 10:50 PM EST 09/25/2024 11:13 PM EST us Savage Frank DO LAB URINE ORDERABLES Final Resu lt [facility] [address] [place] [address], * [place] urine culture tube (09/25/2024 10:50 PM EST) Extra Tube Hold for add-ons. 09/26/2024 1:02 AM [facility] Comment:Auto resulted. Urine Urine specimen obtained by clean catch procedure / Unknown 09/25/2024 10:50 PM EST 09/25/2024 11:14 PM EST us Audra GALLAGHER LAB URINE ORDERABLES Final Re sult Performing Organization Address [facility]/ZIP Co de Phone Number [facility] [address] [place] [address], * (ABNORMAL) Venous blood gas (09/25/2024 10:37 PM EST) pH, Adolph 7.41 7.32 - 7.42 pH 09/25/2024 10:45 PM EST [facility] pCO2, Adolph 48 41 - 51 mmHg 09/25/2024 10:45 PM EST [facility] pO2, Adolph 21(L) 25 - 40 mmHg 09/25/2024 10:45 PM EST [facility] HCO3, Venous 26.8(H) 22.0 - 26.0 mmol/L 09/25/2024 10:45 PM EST [facility] O2 Sat, Adolph 44.7 % 09/25/2024 10:45 PM EST [facility] Base Excess, Adolph 4.6(H) -2.0 - 2.0 mmol/L 09/25/2024 10:45 PM EST [facility] Blood Venous blood specimen / Unknown Venipuncture / Unknown 09/25/2024 10:37 PM EST 09/25/2024 10:41 PM EST Savage Frank DO LAB BLOOD ORDERABLES Final Resu lt [facility] [address] [place] [address], [place] [phone] * Beta hydroxybutyrate (09/25/2024 7:30 PM EST) Beta-Hydroxybu tyrate 1.4 0.2 - 2.8 mg/dL LAB CHEMISTRY METHOD 09/25/2024 8:11 PM EST [facility] Blood Venous blood specimen / Unknown Venipuncture / Unknown 09/25/2024 7:30 PM EST 09/25/2024 7:37 PM EST us Stormrich Terri Frank DO LAB BLOOD ORDERABLES Final Resu lt [facility] [address] [place] [address], [place] [phone] * CBC auto differential (09/25/2024 7:30 PM EST) Only the most recent of2 resultswithin the time period is included. WBC 6.6 4.8 - 10.8 K/mcL LAB HEMETOLOGY METHOD 09/25/2024 7:52 PM [facility] RBC 4.80 3.80 - 4.80 M/mcL LAB HEMETOLOGY METHOD 09/25/2024 7:52 PM [facility] Hemoglobin 13.9 11.5 - 16.0 g/dL LAB HEMETOLOGY METHOD 09/25/2024 7:52 PM [facility] Hematocrit 41.2 35.0 - 47.0 % LAB HEMETOLOGY METHOD 09/25/2024 7:52 PM [facility] MCV 85.5 79.0 - 98.0 FL LAB HEMETOLOGY METHOD 09/25/2024 7:52 PM EST [facility] MCH 28.8 27.0 - 32.0 pcg LAB HEMETOLOGY METHOD 09/25/2024 7:52 PM [facility] MCHC 33.7 32.0 - 37.0 g/dL LAB HEMETOLOGY METHOD 09/25/2024 7:52 PM [facility] RDW 12.2 11.0 - 15.0 % LAB HEMETOLOGY METHOD 09/25/2024 7:52 PM [facility] Platelets 235 130 - 400 K/mcL LAB HEMETOLOGY METHOD 09/25/2024 7:52 PM [facility] MPV 10.4 7.0 - 11.0 FL LAB HEMETOLOGY METHOD 09/25/2024 7:52 PM [facility] NRBC 0.0 <1.0 % LAB HEMETOLOGY METHOD 09/25/2024 7:52 PM [facility] NRBC Absolute 0.00 <0.10 K/mcL LAB HEMETOLOGY METHOD 09/25/2024 7:52 PM [facility] Neutrophils Relative 52.3 % LAB HEMETOLOGY METHOD 09/25/2024 7:52 PM [facility] Lymphocytes Relative 34.3 % LAB HEMETOLOGY METHOD 09/25/2024 7:52 PM [facility] Monocytes Relative 9.3 % LAB HEMETOLOGY METHOD 09/25/2024 7:52 PM [facility] Eosinophils Relative 2.4 % LAB HEMETOLOGY METHOD 09/25/2024 7:52 PM [facility] Basophils Relative 1.4 % LAB HEMETOLOGY METHOD 09/25/2024 7:52 PM [facility] Immature Granulocytes Relative 0.3 % LAB HEMETOLOGY METHOD 09/25/2024 7:52 PM [facility] Neutrophils Absolute 3.43 1.50 - 7.00 K/mcL LAB HEMETOLOGY METHOD 09/25/2024 7:52 PM [facility] Lymphocytes Absolute 2.25 1.00 - 5.00 K/mcL LAB HEMETOLOGY METHOD 09/25/2024 7:52 PM [facility] Monocytes Absolute 0.61 0.20 - 1.00 K/mcL LAB HEMETOLOGY METHOD 09/25/2024 7:52 PM [facility] Eosinophils Absolute 0.16 0.00 - 0.50 K/mcL LAB HEMETOLOGY METHOD 09/25/2024 7:52 PM EST [facility] Basophils Absolute 0.09 0.00 - 0.20 K/[facility] LAB HEMETOLOGY METHOD 09/25/2024 7:52 PM EST [facility] Immature Granulocytes Absolute 0.02 0.00 - 0.03 K/[facility] LAB HEMETOLOGY METHOD 09/25/2024 7:52 PM EST [facility] Blood Venous blood specimen / Unknown Venipuncture / Unknown 09/25/2024 7:30 PM EST 09/25/2024 7:37 PM EST Savage Murray Monika ANNA LAB BLOOD ORDERABLES Final Resu lt Performing Organization Address City/[facility]/ZIP Co de Phone Number [facility] [address] [place] [address], [place] [phone] * Osmolality (09/25/2024 7:30 PM EST) Osmolality Aleksey 298 280 - 300 mOsm/kg LAB CHEMISTRY METHOD 09/25/2024 8:34 PM EST [facility] Blood Venous blood specimen / Unknown Venipuncture / Unknown 09/25/2024 7:30 PM EST 09/25/2024 7:37 PM EST Stormrich Terri Frank DO LAB BLOOD ORDERABLES Final Resu lt [facility] [address] [place] [address], [place] [phone] * Magnesium (09/25/2024 7:30 PM EST) Magnesium 2.0 1.9 - 2.6 mg/dL LAB CHEMISTRY METHOD 09/25/2024 8:11 PM EST [facility] Blood Venous blood specimen / Unknown Venipuncture / Unknown 09/25/2024 7:30 PM EST 09/25/2024 7:37 PM EST Savage Frank DO LAB BLOOD ORDERABLES Final Resu lt [facility] [address] [place] [address], [place] [phone] * Lipase (09/25/2024 7:30 PM EST) Pathologist [facility] Lipase 39 13 - 75 unit/L LAB CHEMISTRY METHOD 09/25/2024 8:11 PM [facility] Blood Venous blood specimen / Unknown Venipuncture / Unknown 09/25/2024 7:30 PM EST 09/25/2024 7:37 PM EST Savage Frank LAB BLOOD ORDERABLES Final Resu lt Performing Organization Address [facility]/ZIP Co de Phone Number [facility] [address] [place] [address], [place] [phone] * (ABNORMAL) Comprehensive metabolic panel (09/25/2024 7:30 PM EST) Only the most recent of2 resultswithin the time period is included. Pathologist [facility] Sodium 131(L) 133 - 145 mmol/L LAB CHEMISTRY METHOD 09/25/2024 8:22 PM [facility] Potassium 4.1 3.5 - 5.5 mmol/L LAB CHEMISTRY METHOD 09/25/2024 8:22 PM [facility] Chloride 100 96 - 110 mmol/L LAB CHEMISTRY METHOD 09/25/2024 8:22 PM [facility] CO2 28 21 - 32 mmol/L LAB CHEMISTRY METHOD 09/25/2024 8:22 PM [facility] Anion Gap 3 3 - 11 LAB CHEMISTRY METHOD 09/25/2024 8:22 PM [facility] Glucose 310(H) 70 - 100 mg/dL LAB CHEMISTRY METHOD 09/25/2024 8:22 PM [facility] BUN 11 5 - 25 mg/dL LAB CHEMISTRY METHOD 09/25/2024 8:22 PM [facility] Creatinine 0.76 0.50 - 1.10 mg/dL LAB CHEMISTRY METHOD 09/25/2024 8:22 PM [facility] eGFR 94 >=60 mL/min/1. 73m2 LAB CHEMISTRY METHOD 09/25/2024 8:22 PM [facility] Comment:Calculation based on the??Chronic Kidney Disease Epidemiology Collaboration (CKD-EPI) equation refit??without adjustment for race. BUN/Creatinine Ratio 14.5 LAB CHEMISTRY METHOD 09/25/2024 8:22 PM [facility] Calcium 9.3 8.5 - 10.5 mg/dL LAB CHEMISTRY METHOD 09/25/2024 8:22 PM [facility] AST (SGOT) 33 10 - 42 unit/L LAB CHEMISTRY METHOD 09/25/2024 8:22 PM [facility] ALT (SGPT) 46 10 - 60 unit/L LAB CHEMISTRY METHOD 09/25/2024 8:22 PM [facility] Alkaline Phosphatase 103 42 - 121 unit/L LAB CHEMISTRY METHOD 09/25/2024 8:22 PM [facility] Total Protein 7.9 6.0 - 8.0 g/dL LAB CHEMISTRY METHOD 09/25/2024 8:22 PM [facility] Albumin 4.1 3.2 - 5.0 g/dL LAB CHEMISTRY METHOD 09/25/2024 8:22 PM [facility] Total Bilirubin 0.6 0.0 - 1.4 mg/dL LAB CHEMISTRY METHOD 09/25/2024 8:22 PM [facility] Blood Venous blood specimen / Unknown Venipuncture / Unknown 09/25/2024 7:30 PM EST 09/25/2024 7:37 PM EST us Savage Frank DO LAB BLOOD ORDERABLES Final Resu lt Performing Organization Address City/[facility]/ZIP Co de Phone Number [facility] [address] [place] [address], * Lactate dehydrogenase (08/06/2024 1:16 PM EST) Pathologist [facility] LDH 231 120 - 246 unit/L LAB CHEMISTRY METHOD 08/06/2024 2:19 PM EST [facility] Blood Venous blood specimen / Unknown Venipuncture / Unknown 08/06/2024 1:16 PM EST 08/06/2024 1:40 PM EST Nirmal Cooper MD LAB BLOOD ORDERABLES Final R esult Performing Organization Address [facility]/ZIP Co de Phone Number [facility] [address] [place] [address], * Beta 2 microglobulin, serum (08/06/2024 1:16 PM EST) [facility] Beta-2 Microglobulin 1.4 0.7 - 1.8 mg/L LAB CHEMISTRY METHOD 08/06/2024 2:21 PM EST [facility] Blood Venous blood specimen / Unknown Venipuncture / Unknown 08/06/2024 1:16 PM EST 08/06/2024 1:40 PM EST Nirmal Cooper MD LAB BLOOD ORDERABLES Final R esult Performing Organization Address City/[facility]/ZIP Co de Phone Number [facility] [address] [place] [address], [place] [phone] * Lipid panel (09/06/2023) Pathologist [facility] LDL/HDL Ratio 0 Triglycerides 0 mg/dL Cholesterol 0 mg/dL HDL 0 mg/dL LDL Cholesterol 0 mg/dL Blood Venous blood specimen / Unknown Historical Provider LAB BLOOD ORDERABLES Prema l Result * Hepatitis C Screening (11/21/2022) Hepatitis C Screening Abstracted Historical Provider HEALTH MAINTENANCE Final Result * HIV Screening (12/03/2021) HIV Screening Abstracted Historical Provider HEALTH MAINTENANCE Final Result * Hemoglobin A1c (12/03/2021) Pathologist [facility] Hemoglobin A1C 0.0 % Blood Venous blood specimen / Unknown Result [facility] Provider LAB BLOOD ORDERABLES Prema l Result from Last 3 Months or Most Recently Relevant [place] [phone] [facility] MEDICARE ADVANTAGE MEDICAID - [place] Care Teams Track Mechanic Relationship Specialty Start Date End Date Grisel Meraz MD [address] [place], [place] [address]je[place] [phone] [facility] - General 09/16/22
--- OUTSIDE RECORDS SUMMARY | 2024-10-22 13:45 | XMS_ITS | Encounter Summary ---
Author Organization [employer] Address [address] [facility] 7 [place] [address] Care Team Providers Care Edge Setter Name Role Phone Grisel Meraz MD Primary Care Provider [phone] Reason for Visit * Reason Comments Med Refill Encounter Details Date Type Department Care Team ([facility] Contact Info) Description 10/21/2024 Refill [facility] CHC MED & PEDS [address] [place] [address] Grisel Meraz MD [address] [place] [address] Social History Tobacco Use Types Packs/Day Years [...] Description 10/31/2024 2:00 PM EST Nurse Only [facility] CHC MED & PEDS [address] [place], [place] [phone] 01/09/2025 3:00 PM EDT Office Visit [facility] OPTOMETRY [address] [place] [address] Flex, Antonella, OD [address] [place] [address] documented as of this encounter Visit Diagnoses Not on filedocumented in this encounter Additional Health Concerns Assessment Noted Time PHQ-9 Depression Total Score: 21 023 11:24 AM EST documented as of this encounter Care Teams Edge Setter Relationship Specialty Start Date End Date Grisel Meraz MD [address] [place] [address] PCP - General Family Medicine 03/06/19 documented as of this encounter
--- OUTSIDE RECORDS SUMMARY | 2024-10-22 13:45 | XMS_ITS ---
Author Organization [facility] Address [address] [place] [address] Care Team Providers Care Staffing Director Name Role Phone Grisel Meraz MD Primary Care Provider [phone] Active Problems Problem Noted Date Diagnosed Date Non-Hodgkin's lymphoma 09/29/2022 Current Oncology Plans No current plan information found. Past Plans ONCOLOGY TREATMENT Plan Name Start Date Discontinue Date Treatment Medications Discontinue Reason Plan Provider Cycles [facility] BCN OP R-CHOP [id number] (R IV/SC) 3 11/07/2023 acetaminophen (TYLENOL)albuterol (PROVENTIL)cycloPHOSpham [...] treatments are documented for this patient in [facility]. Treatments may have been administered in another system. Lifetime Dose Tracking * Chemical Lifetime Dose Automatic Entry Manual Entr y Doxorubicin 297.672 mg/m2 (504 mg) 297.672 mg/m2 (504 mg) 0 mg/m2 (0 mg)
--- OUTSIDE RECORDS SUMMARY | 2024-10-22 13:45 | XMS_ITS | Encounter Summary ---
Author Organization [facility] Address [address] [facility] 7 [place] [address] Care Team Providers Care Technical Research Scientist Name Role Phone Grisel Meraz MD Primary Care Provider [phone] Reason for Visit * Reason Onset Date Comments triage 08/16/2022 Encounter Details Date Type Department Care Team ([facility] Contact Info) Description 08/16/2022 Telephone [facility] CHC MED & PEDS [address] [place], [place] [phone] Grisel Meraz MD [address] [place] [address] triage Social History Tobacco Use Types Packs/Day [...] report Losing weight x Months. Patient speaks (Hebrew). Advised triage nurse will call patient back. documented in this encounter Plan of Treatment Upcoming Encounters Date Type Department Care Team ([facility] Contact Info) Description 10/31/2024 2:00 PM EST Nurse Only [facility] CHC MED & PEDS [address] [place], [place] [phone] 01/09/2025 3:00 PM EDT Office Visit [facility] OPTOMETRY [address] [place] [address] Antonella Mccord, OD [address] [place] [address] documented as of this encounter Visit Diagnoses Not on filedocumented in this encounter Care Teams Technical Research Scientist Relationship Specialty Start Date End Date Grisel Meraz MD [address] [place] [address] PCP - General Family Medicine 03/06/19 documented as of this encounter
--- OUTSIDE RECORDS SUMMARY | 2024-10-22 13:45 | XMS_ITS | Encounter Summary ---
Author Organization [employer] Address [address] [place] [address] Care Team Providers Care Hourly Shift Manager Name Role Phone Grisel Meraz MD Primary Care Provider Encounter Details Date Type Department Care Team ([facility] st Contact Info) Description 09/06/[address] [facility] CHC MED & PEDS [address] [place] [address] Grisel Meraz MD [address] [place] [address] Boils of multiple sites (Primary Dx) Social [...] Description 10/31/2024 2:00 PM EST Nurse Only [facility] CHC MED & PEDS [address] [place], [place] [phone] 01/09/2025 3:00 PM EDT Office Visit [facility] OPTOMETRY [address] [place] [address] Flex, Antonella, OD [address] [place] [address] documented as of this encounter Visit Diagnoses Diagnosis Boils of multiple sites- Primary documented in this encounter Additional Health Concerns Assessment Noted Time PHQ-9 Depression Total Score: 21 023 11:24 AM EST documented as of this encounter Care Teams Hourly Shift Manager Relationship Specialty Start Date End Date Grisel Meraz MD [address] [place] [address] PCP - General Family Medicine 03/06/19 documented as of this encounter
--- OUTSIDE RECORDS SUMMARY | 2024-10-22 13:45 | XMS_ITS | Encounter Summary ---
Author Organization [employer] Address [address] [facility] 7t [place] [address] Care Team Providers Care Supervising Fire Marshal Name Role Phone Grisel Merza MD Primary Care Provider [phone] Encounter Details Date Type Department Care Team ([facility] st Contact Info) Description 10/09/2024 Orders Only [...] 10/31/2024 2:00 PM EST Nurse Only [facility] CHC MED & PEDS [address] [place], [place] [phone] 01/09/2025 3:00 PM EDT Office Visit [facility] OPTOMETRY [address] [place] [address] Flex, Antonella, OD [address] [place] [address] documented as of this encounter Procedures Procedure Name Priority Date/Time Associated Diagnosis Comments GLUCOSE, WHOLE BLOOD Routine 10/09/2024 3:32 PM EST documented in this encounter Results * (ABNORMAL) Glucose, Whole Blood (10/09/2024 3:32 PM EST) [facility] Signature Glucose, Whole Blood 496() 60 - 115 mg/dL [facility] Comment:METER #: [id number] Testing performed in the Endocrinology Department [address] , [address], [facility]. 10/09/2024 3:32 PM EST 10/10/2024 3:04 PM EST us Generic External Data Provider LAB BLOOD ORDERAB LES Final Result [facility] [address] [place] [address] [phone] documented in this encounter Visit Diagnoses Not on filedocumented in this encounter Additional Health Concerns Assessment Noted Time PHQ-9 Depression Total Score: 21 023 11:24 AM EST documented as of this encounter Care Teams Supervising Fire Marshal Relationship Specialty Start Date End Date Grisel Meraz MD [address] [place], [place] [phone] PCP - General Family Medicine 03/06/19 documented as of this encounter
--- OUTSIDE RECORDS SUMMARY | 2024-10-22 13:45 | XMS_ITS | Encounter Summary ---
Author Organization [employer] Address [address] [facility] [address] [place] [address] Care Team Providers Care Pointer Helper Name Role Phone Grisel Meraz MD Primary Care Provider [phone] Encounter Details Date Type Department Care Team ([facility] st Contact Info) Description 10/18/2024 Orders Only GENERIC EXTERNAL DATA DEPARTMENT Provider, [...] Description 10/31/2024 2:00 PM EST Nurse Only [facility] CHC MED & PEDS [address] [place], [place] [phone] 01/09/2025 3:00 PM EDT Office Visit [facility] OPTOMETRY [address] [place] [address] Flex, Antonella, OD [address] [place] [address] documented as of this encounter Procedures Procedure Name Priority Date/Time Associated Diagnosis Comments GLUCOSE, WHOLE BLOOD Routine 10/18/2024 3:19 PM EST documented in this encounter Results * (ABNORMAL) Glucose, Whole Blood (10/18/2024 3:19 PM EST) Glucose, Whole Blood 129(H) 60 - 115 mg/dL [facility] Comment:METER #: [id number] 5Testing performed in the Endocrinology Department [address] , [address], [facility]. 10/18/2024 3:19 PM EST 10/18/2024 3:23 PM EST us Generic External Data Provider LAB BLOOD ORDERAB LES Final Result [facility] [address] [place] [address] [phone] documented in this encounter Visit Diagnoses Not on filedocumented in this encounter Additional Health Concerns Assessment Noted Time PHQ-9 Depression Total Score: 21 023 11:24 AM EST documented as of this encounter Care Teams Pointer Helper Relationship Specialty Start Date End Date Grisel Meraz MD [address] [place], [place] [phone] PCP - General Family Medicine 03/06/19 documented as of this encounter
--- OUTSIDE RECORDS SUMMARY | 2024-10-22 13:45 | XMS_ITS | Clinical Summary ---
Author Organization [email or web address] Address [address] [facility] 7t [place] [address] Care Team Providers Care Line Tender Flakeboard Name Role Phone Grisel Meraz MD Primary Care Provider [phone] Allergies Active Allergy Reactions Criticality Noted Date [...] each 023 Active Blood Glucose Monitoring Suppl (Mobile Accord) w/Device kit CHECK BLOOD SUGAR FOUR TIMES [...] injectionIndicat ions:Type 2 diabetes mellitus with hyperglycemia (CMS/HCC),group home (current) use of insulin (CMS/HCC) INJECT 2 TO 16 UNITS SUBCUTANEOUSLY FOUR TIMES DAILY 15 mL 6 023 Active insulin aspart FlexPen (NovoLOG) 100 UNIT/ML pen Use 10 units subcutaneously premeals tid or as per sliding scale 15 mL 023 Active OneTouch Verio test stripIndications :Type 2 diabetes mellitus without complications ([facility]) TEST BLOOD SUGAR FOUR TIMES DAILY 100 strip 024 Active mometasone-formo terol (Dulera 200) 200-5 MCG/ACT inhaler Inhale 2 puffs in the morning and at bedtime. Rinse mouth with water after use to reduce aftertaste and incidence of candidiasis. Do not swallow. 13 g 024 Active Multiple Vitamin (Multivitamin) tabletIndication s:Type 2 diabetes mellitus without complication, with long-term current use of insulin ([facility]) TAKE ONE TABLET EVERY MORNING 100 tablet Active oxybutynin XL (Ditropan-XL) 5 MG 24 hr tabletIndication s:Type 2 diabetes mellitus with hyperglycemia, with long-term current use of insulin ([facility]) TAKE ONE TABLET EVERY MORNING 30 tablet Active pantoprazole (ProtoNix) 40 MG EC tabletIndication s:Type 2 diabetes mellitus with hyperglycemia, with long-term current use of insulin ([facility]) TAKE ONE TABLET EVERY MORNING 30 tablet [...] ONE TABLET EVERY MORNING 90 tablet 1 Active rosuvastatin (Crestor) 40 MG tablet TAKE ONE TABLET EVERY MORNING 30 tablet Active lisinopril 2.5 MG tablet TAKE ONE TABLET EVERY MORNING 30 tablet Active rosuvastatin (Crestor) 40 MG tablet TAKE ONE TABLET EVERY MORNING 30 tablet 024 2024 Discontinued lisinopril 2.5 MG tablet TAKE ONE TABLET EVERY MORNING 30 tablet 5 024 2024 Discontinued loratadine (Claritin) 10 MG tablet TAKE 1 TABLET EVERY MORNING 90 tablet 1 024 2024 Discontinued Active Problems Problem Noted Date Diagnosed Date Diabetes mellitus, labile 09/05/2024 Non-Hodgkin's lymphoma 09/29/2022 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 09/26/2022 Bunion 06/27/2018 Hyperlipidemia 06/27/2018 Migraine 06/27/2018 Mild intermittent asthma 06/27/2018 Mood disorder 06/27/2018 Multiple joint pain 06/27/2018 Seasonal allergies 06/27/2018 Type 2 diabetes mellitus without complication Encounters Date Type Department Care Team Description 10/21/2024 Refill [facility] [address] [place] [address] Grisel Meraz MD 10/18/2024 Orders Only GENERIC EXTERNAL DATA DEPARTMENT Provider, Generic External Data 10/16/2024 Refill [facility] [address] [place] [address] Grisel Meraz MD 10/09/2024 Orders Only GENERIC EXTERNAL DATA DEPARTMENT Provider, Generic External Data 09/27/2024 Orders Only [facility] [address] [place] [address] Silverio Schwab MD 09/25/2024 Orders Only GENERIC EXTERNAL DATA DEPARTMENT Provider, Generic External Data 09/06/2024 Orders Only [facility] [address] [place] [address] Grisel Meraz MD Boils of multiple sites (Primary Dx) 09/06/[address] [facility] [address] [place] [phone] Brigette Hubbard RN Lab Orders 09/05/2024 1:20 PM EST Office Visit [facility] [address] [place] [address] Grisel Meraz MD Encounter for immunization (Primary Dx); Type 2 diabetes mellitus without complication, with long-term current use of insulin ([facility]); Boils of multiple sites; BETSY (obstructive sleep apnea); Multiple joint pain; Diabetes mellitus, labile ([facility]); Non-Hodgkin lymphoma of intra-abdominal lymph nodes, unspecified non-Hodgkin lymphoma type ([facility]); Dietary counseling; Exercise counseling 09/05/2024 Travel 09/02/2024 Travel 08/16/2024 Refill [facility] [address] [place] [address] Grisel Meraz MD 08/06/2024 Travel 07/31/2024 Telephone [facility] [address] [place] [address] Grisel Meraz MD No Show 07/30/2024 Orders Only GENERIC EXTERNAL DATA DEPARTMENT Provider, Generic External Data 07/29/2024 Telephone [facility] [address] [place] [address] Grisel Meraz MD Chart Prep from Last [...] the past 12 months, has t he [employer], gas, oil or water company threatened to [...] 2:00 PM EST Nurse Only [facility] [address] [place] [address] 01/09/2025 3:00 PM EDT Office Visit [facility] [address] [place] [address] Flex, Antonella, OD [address] [place] [address] Health Maintenance Due Date Last Done Comments [...] WHOLE BLOOD Routine 10/18/2024 3:19 PM EST GLUCOSE, WHOLE BLOOD Routine 10/09/2024 3:32 PM [...] Maintenance Results * (ABNORMAL) Glucose, Whole Blood (10/18/2024 3:19 PM EST) Only the most recent of4 resultswithin the time period is included. Glucose, Whole Blood 129(H) 60 - 115 mg/dL [facility] Comment:METER #: [id number] 5Testing performed in the Endocrinology Department [address] , [address], [place]. 10/18/2024 3:19 PM EST 10/18/2024 3:23 PM EST us Generic External Data Provider LAB BLOOD ORDERAB LES Final Result [facility] [address] [place] [address] [phone] * XR Chest 2 Views (09/26/2024 9:20 AM EST) Anatomical Region Laterality Modality Chest Radiographic Sherita [facility] Provider IMG XR PROCEDURES Final R esult * (ABNORMAL) POCT HGB A1C (09/05/2024 1:57 PM EST) Pathologist [facility] Hemoglobin A1C 9.2(A) 4.0 - 6.0 % QC Media Lot # [id number] Lot# Expiration Date [id number] Blood 09/05/2024 1:57 PM EST Grisel Meraz MD POINT OF CARE TEST ENTER/EDIT ORDERABLES Final Result * (ABNORMAL) POCT Glucose (09/05/2024 1:57 PM EST) Pathologist [facility] Glucose Blood, POC 500(A) 60 - 200 mg/dL Comment:[facility] QC Media Lot # [id number] Lot# Expiration Date [id number] Blood Capillary blood specimen / Unknown 09/05/2024 1:57 PM EST Result [facility] Grisel Meraz MD POINT OF CARE TEST ENTER/EDIT ORDERABLES Final Result * (ABNORMAL) MRSA Nasal Screen (09/05/2024 1:45 PM EST) Pathologist [facility] MRSA Nasal PCR NEGATIVE Negative [facility] SA Nasal PCR POSITIVE(A) Negative [facility] MRSA Interpretation SEE NOTE [facility] Comment:MRSA target DNA not detected; SA target DNA detected.A MRSA NEGATIVE, SA POSITIVE test result does not precludeMRSA nasal colonization. Nares Nasal structure / Unknown 09/05/2024 1:45 PM EST 09/06/2024 1:44 PM EST us Grisel Meraz MD LAB MICROBIOLOGY - GENERAL OR DERABLES Final Result Performing Organization Address City/[facility]/ZIP Co de Phone Number [facility] [address] [place] [phone] * BI Mammogram Screening Bilateral (11/16/2023) Anatomical Region Laterality Modality Breast Bilateral Mammography us Grisel Meraz MD IMG BI PROCEDURES Final Resul t * Albumin, Random Urine W/Creatinine (09/06/2023 11:30 AM EST) Creatinine, Urine 63.27 mg/dL [facility] Microalbumin Urine 8.0 mg/L [facility] Microalbum Creatinine Ratio Ur 12.6 <30 ug/mg cr [facility] Comment:Albumin/Creatinine R atio Reference Ranges: Normal: < 30 ug/mg creatinine Microalbuminuria: 30 - 300 ug/mg creatinineClinical Albuminuria: > 300 ug/mg creatinine 09/06/2023 11:3 0 AM EST 09/06/2023 1:26 PM EST us Generic External Data Provider LAB URINE ORDERAB LES Final Result Performing Organization Address [facility] Co de Phone Number [facility] [address] [place] [phone] * (ABNORMAL) Lipid Panel, Standard (09/06/2023 11:30 AM EST) Triglycerides 220(H) <150 mg/dL [facility] Comment:Desirable Triglyceri de: less than 150 mg/dLBorderline High Triglyceride 150-199 mg/dLHigh Triglyceride: 200-499 mg/dLVery High Triglyceride: greater than or equal to 5OO mg/dL Cholesterol 211(H) <200 mg/dL [facility] Comment:Desirable Cholestero l: less than 200 mg/dLBorderline High Cholesterol: 200-239 mg/dLHigh Cholesterol: greater than 239 mg/dL LDL Cholesterol Calculated 110(H) <100 mg/dL [facility] Comment:Desirable LDL: less than 100 mg/dLNear Optimal/Above Optimal LDL: 110- 129 mg/dLBorderline High LDL: 130-159 mg/dLHigh LDL: 160-189 mg/dLVery High LDL: greater than or equal to 190 mg/dL HDL Cholesterol 57 >40 mg/dL [facility] Comment:Desirable HDL: great er than 40 mg/dL Note: This HDL assay may give artificially low results in patients with liver disease. 09/06/2023 11:3 0 AM EST 09/06/2023 11:31 AM EST us Generic External Data Provider LAB BLOOD ORDERAB LES Final Result [facility] [address] [place] [address] [phone] * HEPATITIS C AB W/REFL TO HCV RNA, QN, PCR (12/03/2021 12:00 AM EDT) HEPATITIS C ANTIBODY NON-REACT MICHAEL NON-REACT MICHAEL [facility] INDEX 0.01 <1.00 [facility] Comment: ?? HCV antibody was non-reactive. There is no laboratory ?? evidence of HCV infection. ?? In most cases, no further action is required. However, if recent HCV exposure is suspected, a test for HCV RNA (test code 12852) is suggested. ?? For additional information please refer to http://education.Searchbox/faq/KZU16c1 (This link is being provided for informational/ educational purposes only.) ?? 12/03/2021 us Grisel Meraz MD HISTORICAL/NON ORDERABLE LABS Final Result [facility] [address] * HIV 1/2 ANTIGEN/ANTIBODY,FOURTH GENERATION W/RFL (12/03/2021 12:00 AM EDT) HIV-1/2 ANTIGEN AND ANTIBODIES, 4TH GENERATION W/ REFLEX NON-REACT MICHAEL NON-REACT MICHAEL [facility] Comment: HIV-1 antigen and HIV-1/HIV-2 [...] ? For additional information please refer to http://Fugate.cl.Searchbox/faq/YMP541 (This link is being provided for informational/ educational purposes only.) ? The performance of this assay has not been clinically validated in patients less than 2 years old. ?? 12/03/2021 us Grisel Meraz MD LAB BLOOD ORDERABLES Final Re sult [facility] [address] * HPV E6/E7 RFLX SONIA 16 18/45 (04/18/2019 11:40 AM EDT) HPV 16 RNA Test not performed [facility] HPV 18/45 RNA Test not performed [facility] HPV mRNA E6/E7 Not Detected NOT DETECTED [facility] Comment: This test was performed using the APTIMA(R) HPV Assay ([employer] This assay detects E6/E7 viral messenger RNA (mRNA) from 14 high-risk HPV types (16,18,31,33,35,39,45,51, 52,56,58,59,66,68). For additional information please refer to: http://education.Jive Bike.BidThatProject/faq/RRJ171n9 (This link is being provided for informational/ educational purposes only.) The analytical performance characteristics of this assay have been determined by [employer] [place]. The modifications have not been cleared or approved by the FDA. This assay has been validated pursuant to the CLIA regulations and is used for clinical purposes. Please note: ??Effective 05/16/2016, HPV testing will be performed using [employer]'s APTIMA test which targets mRNA. Detecting mRNA instead of DNA, as in older methods, offers significant improvements in specificity. ADDITIONAL TESTING Not indicated () [facility] Comment: Test Performed by Michelle Kamara, [facility], [address] [place], [place] Jorje Hendrickson M.D., Ph.D., Director of Laboratories , [facility] [id number] 04/18/2019 11:4 0 AM EDT Grisel Meraz MD HISTORICAL/NON ORDERABLE LABS Final Result [facility] [address] * Colonoscopy (11/22/2016) Colonoscopy Normal Normal Narrative Vianey Ross - 11/22/2016 Recommended 5 year follow up Historical Provider HEALTH MAINTENANCE Final Result from Last 3 Months or Most Recently Relevant to Health Maintenance Insurance [employer] [facility] Advance Directives Documents on File Type Date Recorded Patient Travelift Operator Expl anation Advance Directives and Livin g Will 11/09/2023 3:59 PM HCP Care Teams Line Tender Flakeboard Relationship Specialty Start Date End Date Grisel Meraz MD [address] [place] [address] PCP - General Family Medicine 03/06/19
--- OUTSIDE RECORDS SUMMARY | 2024-10-22 13:45 | XMS_ITS | Encounter Summary ---
Author Organization [facility] Address [address] [place] [address] Care Team Providers Care Temperer Name Role Phone Grisel Meraz MD Primary Care Provider [phone] Encounter Details Date Type Department Care Team Description 11/01/2022 Social Work [facility] Oncology Services [address] [place] [address] Grabiel Silva [facility] Social History Tobacco Use Types Packs/Day Years [...] on filedocumented in this encounter Care Teams Temperer Relationship Specialty Start Date End Date Grisel Meraz MD [address] [place] [address] PCP - General Pediatrics 09/16/22 documented as of this encounter
--- OUTSIDE RECORDS SUMMARY | 2024-10-22 13:46 | XMS_ITS | Encounter Summary ---
Author Organization [employer] Address [address] [facility] [address] [place] [address] Care Team Providers Care Rug Inspector Helper Name Role Phone Grisel Meraz MD Primary Care Provider [phone] Reason for Visit * Reason Onset Date Comments Appointment Request 02/22/2023 Encounter Details Date Type Department Care Team ([facility] [place] Contact Info) Description 02/22/2023 Telephone [facility] [address] [place] [address] Grisel Meraz MD [address] [place] [address] Appointment Request Social History Tobacco Use Types [...] are being required. Please contact pt at [phone] Chinese Speaker documented in this encounter Plan of Treatment Upcoming Encounters Date Type Department Care Team (Late st Contact Info) Description 10/31/2024 2:00 PM EST Nurse Only [facility] [address] [place] [address] 01/09/2025 3:00 PM EDT Office Visit [facility] OPT[facility] [address] [place], [place] [phone] Antonella Mccord, OD [address] [place] [address] documented as of this encounter Visit Diagnoses Not on filedocumented in this encounter Additional Health Concerns Assessment Noted Time PHQ-9 Depression Total Score: 21 023 11:24 AM EST documented as of this encounter Care Teams Rug Inspector Helper Relationship Specialty Start Date End Date Grisel Meraz MD [address] [place] [address] PCP - General Family Medicine 03/06/19 documented as of this encounter
--- OUTSIDE RECORDS SUMMARY | 2024-10-22 13:46 | XMS_ITS | Encounter Summary ---
Author Organization [employer] Address [address] [facility] [address] [place] [address] Care Team Providers Care Metal Sprayer Production Name Role Phone Grisel Meraz MD Primary Care Provider [phone] Encounter Details Date Type Department Care Team ([facility] Contact Info) Description 09/27/2024 Orders Only [facility] [address] [place] [address] ProviderSilverio MD Social History Tobacco Use Types [...] Description 10/31/2024 2:00 PM EST Nurse Only [facility] [address] [place], [place] [phone] 01/09/2025 3:00 PM EDT Office Visit [facility] OPT[facility] [address] [place] [address] Flex, Antonella, OD [address] [place] [address] documented as of this encounter Procedures Procedure [...] documented as of this encounter Care Teams Metal Sprayer Production Relationship Specialty Start Date End Date Grisel Meraz MD [address] [place] [address] PCP - General Family Medicine 03/06/19 documented as of this encounter
--- OUTSIDE RECORDS SUMMARY | 2024-10-22 13:46 | XMS_ITS | Encounter Summary ---
Author Organization [employer] [facility] Address [address] [place] [address] Care Team Providers Care Senior Hris Analyst Name Role Phone Grisel Meraz MD Primary Care Provider [phone] Encounter Details Date Type Department Care Team Description 12/20/2022 Social Work [facility] Oncology Services [address] [place] [address] Grabiel Silva [facility] Social History Tobacco Use Types Packs/Day Years [...] on filedocumented in this encounter Care Teams Senior Hris Analyst Relationship Specialty Start Date End Date Grisel Meraz MD [address] [facility] [place] [address] PCP - General Pediatrics 09/16/22 documented as of this encounter
--- OUTSIDE RECORDS SUMMARY | 2024-10-22 13:46 | XMS_ITS | Encounter Summary ---
Author Organization [employer] Address [address] [facility] [address] [place] [address] Care Team Providers Care Horse Show Judge Name Role Phone Grisel Meraz MD Primary Care Provider [phone] Reason for Visit * Reason Onset Date Comments Record Request 04/05/2023 Encounter Details Date Type Department Care Team ([facility] Contact Info) Description 04/05/2023 Telephone [facility] PED[facility] [address] [place] [address] Grisel Meraz MD [address] [place] [address] Record Request Social History Tobacco Use Types [...] 11:24 AM EDT TC from Michelle with [facility]. States had placed requests for physician Summary form , along with copies of last Physical , last office visit , and med list . documented in this encounter Plan of Treatment Upcoming Encounters Date Type Department Care Team (Late st Contact Info) Description 10/31/2024 2:00 PM EST Nurse Only [facility] [address] [place] [address] 01/09/2025 3:00 PM EDT Office Visit [facility] OPTOMETRY [address] [place], [place] [phone] Antonella Mccord, OD [address] [place] [address] documented as of this encounter Visit Diagnoses Not on filedocumented in this encounter Additional Health Concerns Assessment Noted Time PHQ-9 Depression Total Score: 21 023 11:24 AM EST documented as of this encounter Care Teams Horse Show Judge Relationship Specialty Start Date End Date Grisel Meraz MD [address] [place] [address] PCP - General Family Medicine 03/06/19 documented as of this encounter
--- OUTSIDE RECORDS SUMMARY | 2024-10-22 13:46 | XMS_ITS | Encounter Summary ---
Author Organization [employer] Address [address] [facility] 7 [place] [address] Care Team Providers Care Press Tender Short Goods Name Role Phone Grisel Meraz MD Primary Care Provider [phone] Reason for Visit * Reason Onset Date Comments FYI 09/14/2022 Encounter Details Date Type Department Care Team ([facility] Contact Info) Description 09/14/2022 Telephone [facility] [address] [place] [address] Grisel Meraz MD [address] [place], [place] [phone] FY Social History Tobacco Use Types Packs/Day [...] message as a FYI. Please contact at [phone] documented in this encounter Plan of Treatment Upcoming Encounters Date Type Department Care Team (Late st Contact Info) Description 10/31/2024 2:00 PM EST Nurse Only [facility] [address] [place] [address] 01/09/2025 3:00 PM EDT Office Visit [facility] [address] [place], [place] [phone] Antonella Mccord, OD [address] [place] [address] documented as of this encounter Visit Diagnoses Diagnosis Type 2 diabetes mellitus with hyperglycemia, with long-term current use of insulin ([facility] Primary documented in this encounter Care Teams Press Tender Short Goods Relationship Specialty Start Date End Date Grisel Meraz MD [address] [place] [address] PCP - General Family Medicine 03/06/19 documented as of this encounter
--- OUTSIDE RECORDS SUMMARY | 2024-10-22 13:46 | XMS_ITS | Encounter Summary ---
Author Organization [facility] Address [address] [place] [address] 7 [place] [address] Care Team Providers Care Tinning Equipment Tender Name Role Phone Grisel Meraz MD Primary Care Provider [phone] Reason for Visit * Reason Comments Med Refill Encounter Details Date Type Department Care Team (Late Contact Info) Description 09/14/2022 Refill [facility] [address] [place] [address] Sadie Wayne MD [address] [place] [address] Social History Tobacco Use Types Packs/Day Years [...] Description 10/31/2024 2:00 PM EST Nurse Only [facility] PED[facility] [address] [place], [place] [phone] 01/09/2025 3:00 PM EDT Office Visit [facility] OPTOMETRY [address] [place] [address] Antonella Mccord, OD [address] [place] [address] documented as of this encounter Visit Diagnoses Not on filedocumented in this encounter Care Teams Tinning Equipment Tender Relationship Specialty Start Date End Date Grisel Meraz MD [address] [place] [address] PCP - General Family Medicine 03/06/19 documented as of this encounter
--- OUTSIDE RECORDS SUMMARY | 2024-10-22 13:46 | XMS_ITS | Encounter Summary ---
Author Organization [facility] Address [address] [place] [address] Care Team Providers Care [employer] Founder Name Role Phone Grisel Meraz MD Primary Care Provider [phone] Reason for Visit * Reason Comments Hyperglycemia PT sent in by endocr inology for elevated blood sugars Encounter Details Date Type Department Care Team (Late st Contact Info) Description 09/26/2024 3:17 AM EST - 09/26/2024 4:34 AM EST Emergency [facility] Emergency [address] [place] [phone] Yeast infection (Primary Dx); Hyperglycemia Discharge Disposition: [...] today, however please continue working with your coal weigher for appropriate blood sugar management. You received [...] home insulin Humalog/Lantus has beenmanaged by her coal weigher. Patient reports that she has no abdominal [...] URINALYSIS WITH REFLEX MICROSCOPIC - Abnormal Specific [place] Urine 1.024 pH, Urine 6.0 Leukocytes, Urine [...] Procedure Abnormality Status --------- ------ CBC auto differential[[id number]] Final result Please view results for these tests on the individual orders. URINALYSIS WITH REFLEX MICROSCOPIC Narrative: The following orders were created for panel order Urinalysis with reflex microscopic. Procedure Abnormality Status --------- ------ Urinalysis with reflex ...[[id number]] Abnormal Final result Please view results for [...] in the setting of her uncontrolled hyperglycemia. [id number] todaywas within appropriate limits, I do not [...] Description 02/24/2025 3:30 PM EDT Office Visit [facility] Hematology Oncology [address] [place] [phone] Nirmal Cooper MD [address] [place] [address] documented as of this encounter Procedures Procedure [...] Signed Date: 09/26/2024 08:07 ET Workstation ID: [id number] Transcribed By: Self Edit Transcribed Date: 09/26/2024 [...] Signed Date: 09/26/2024 08:07 ET Workstation ID: [id number] Transcribed By: Self Edit Transcribed Date: 09/26/2024 08:06 ET Yun GALLAGHER IMG XR PROCEDURES Final Result * (ABNORMAL) POCT Glucose, blood (09/26/2024 2:43 AM EST) [facility] Signature Glucose POCT 232(H) 70 - 100 mg/dL 09/26/2024 2:44 AM EST [facility] Blood Capillary blood specimen / Unknown 09/26/2024 2:43 AM EST 09/26/2024 2:45 AM EST Generic Provider Poct LAB POINT OF CARE TEST DOCKED DEVICE UNSOLICITED RESULTS Final Result [facility] [address] [place] [address], [place] [phone] * [place] urine culture tube (09/25/2024 10:50 PM EST) Pathologist [facility] Emergency Department Extra Tube Hold for add-ons. 09/26/2024 1:02 AM [facility] Comment:Auto resulted. Urine Urine specimen obtained by clean catch procedure / Unknown 09/25/2024 10:50 PM EST 09/25/2024 11:14 PM EST us Audra GALLAGHER LAB URINE ORDERABLES Final Re sult [facility] [address] [place] [address], [place] [phone] * (ABNORMAL) Urinalysis with reflex microscopic (09/25/2024 10:50 PM EST) [facility] Specific [place] Urine 1.024 1.003 - 1.030 LAB URINALYSIS - AUTOMATED METHOD 09/25/2024 11:19 PM [facility] pH, Urine 6.0 5.0 - 8.0 pH LAB URINALYSIS - AUTOMATED METHOD 09/25/2024 11:19 PM [facility] Leukocytes, Urine Negative Negative LAB URINALYSIS - AUTOMATED METHOD 09/25/2024 11:19 PM [facility] Nitrite, Urine Negative Negative LAB URINALYSIS - AUTOMATED METHOD 09/25/2024 11:19 PM [facility] Protein, Urine Negative <=Trace mg/dL LAB URINALYSIS - AUTOMATED METHOD 09/25/2024 11:19 PM [facility] Glucose, Urine >=1000(A) Negative mg/dL LAB URINALYSIS - AUTOMATED METHOD 09/25/2024 11:19 PM [facility] Ketones, Urine Negative Negative mg/dL LAB URINALYSIS - AUTOMATED METHOD 09/25/2024 11:19 PM [facility] Urobilinogen , Urine 1.0 0.2 - 1.0 mg/dL LAB URINALYSIS - AUTOMATED METHOD 09/25/2024 11:19 PM EST [facility] Bilirubin, Urine Negative Negative LAB URINALYSIS - AUTOMATED METHOD 09/25/2024 11:19 PM [facility] Blood, Urine Negative Negative LAB URINALYSIS - AUTOMATED METHOD 09/25/2024 11:19 PM [facility] Urine Urine specimen obtained by clean catch procedure / Unknown Non-blood Collection / Unknown 09/25/2024 10:50 PM EST 09/25/2024 11:13 PM EST us Savage Frank DO LAB URINE ORDERABLES Final Resu lt [facility] [address] [place] [address], * (ABNORMAL) Venous blood gas (09/25/2024 10:37 PM EST) pH, Adolph 7.41 7.32 - 7.42 pH 09/25/2024 10:45 PM [facility] pCO2, Adolph 48 41 - 51 mmHg 09/25/2024 10:45 PM [facility] pO2, Adolph 21(L) 25 - 40 mmHg 09/25/2024 10:45 PM [facility] HCO3, Venous 26.8(H) 22.0 - 26.0 mmol/L 09/25/2024 10:45 PM [facility] O2 Sat, Adolph 44.7 % 09/25/2024 10:45 PM [facility] Base Excess, Adolph 4.6(H) -2.0 - 2.0 mmol/L 09/25/2024 10:45 PM [facility] Blood Venous blood specimen / Unknown Venipuncture / Unknown 09/25/2024 10:37 PM EST 09/25/2024 10:41 PM EST us Savage Frank DO LAB BLOOD ORDERABLES Final Resu lt [facility] [address] [place] [address], [place] [phone] * CBC auto differential (09/25/2024 7:30 PM EST) [facility] WBC 6.6 4.8 - 10.8 K/mcL LAB HEMETOLOGY METHOD 09/25/2024 7:52 PM EST [facility] RBC 4.80 3.80 - 4.80 M/mcL LAB HEMETOLOGY METHOD 09/25/2024 7:52 PM [facility] Hemoglobin 13.9 11.5 - 16.0 g/dL LAB HEMETOLOGY METHOD 09/25/2024 7:52 PM [facility] Hematocrit 41.2 35.0 - 47.0 % LAB HEMETOLOGY METHOD 09/25/2024 7:52 PM [facility] MCV 85.5 79.0 - 98.0 FL LAB HEMETOLOGY METHOD 09/25/2024 7:52 PM [facility] MCH 28.8 27.0 - 32.0 pcg LAB HEMETOLOGY METHOD 09/25/2024 7:52 PM [facility] MCHC 33.7 32.0 - 37.0 g/dL LAB HEMETOLOGY METHOD 09/25/2024 7:52 PM [facility] RDW 12.2 11.0 - 15.0 % LAB HEMETOLOGY METHOD 09/25/2024 7:52 PM [facility] Platelets 235 130 - 400 K/mcL LAB HEMETOLOGY METHOD 09/25/2024 7:52 PM [facility] MPV 10.4 7.0 - 11.0 FL LAB HEMETOLOGY METHOD 09/25/2024 7:52 PM [facility] NRBC 0.0 <1.0 % LAB HEMETOLOGY METHOD 09/25/2024 7:52 PM [facility] NRBC Absolute 0.00 <0.10 K/mcL LAB HEMETOLOGY METHOD 09/25/2024 7:52 PM [facility] Neutrophils Relative 52.3 % LAB HEMETOLOGY METHOD 09/25/2024 7:52 PM [facility] Lymphocytes Relative 34.3 % LAB HEMETOLOGY METHOD 09/25/2024 7:52 PM [facility] Monocytes Relative 9.3 % LAB HEMETOLOGY METHOD 09/25/2024 7:52 PM [facility] Eosinophils Relative 2.4 % LAB HEMETOLOGY METHOD 09/25/2024 7:52 PM [facility] Basophils Relative 1.4 % LAB HEMETOLOGY METHOD 09/25/2024 7:52 PM [facility] Immature Granulocytes Relative 0.3 % LAB HEMETOLOGY METHOD 09/25/2024 7:52 PM [facility] Neutrophils Absolute 3.43 1.50 - 7.00 K/mcL LAB HEMETOLOGY METHOD 09/25/2024 7:52 PM [facility] Lymphocytes Absolute 2.25 1.00 - 5.00 K/mcL LAB HEMETOLOGY METHOD 09/25/2024 7:52 PM [facility] Monocytes Absolute 0.61 0.20 - 1.00 K/mcL LAB HEMETOLOGY METHOD 09/25/2024 7:52 PM [facility] Eosinophils Absolute 0.16 0.00 - 0.50 K/mcL LAB HEMETOLOGY METHOD 09/25/2024 7:52 PM [facility] Basophils Absolute 0.09 0.00 - 0.20 K/mcL LAB HEMETOLOGY METHOD 09/25/2024 7:52 PM EST [facility] Immature Granulocytes Absolute 0.02 0.00 - 0.03 K/mcL LAB HEMETOLOGY METHOD 09/25/2024 7:52 PM EST [facility] Blood Venous blood specimen / Unknown Venipuncture / Unknown 09/25/2024 7:30 PM EST 09/25/2024 7:37 PM EST Savage Frank DO LAB BLOOD ORDERABLES Final Resu lt Performing Organization Address City/[facility]/ZIP Co de Phone Number [facility] [address] [place] [address], [place] [phone] * Beta hydroxybutyrate (09/25/2024 7:30 PM EST) Beta-Hydroxybu tyrate 1.4 0.2 - 2.8 mg/dL LAB CHEMISTRY METHOD 09/25/2024 8:11 PM EST [facility] Blood Venous blood specimen / Unknown Venipuncture / Unknown 09/25/2024 7:30 PM EST 09/25/2024 7:37 PM EST us Savage Frank DO LAB BLOOD ORDERABLES Final Resu lt [facility] [address] [place] [address], [place] [phone] * Osmolality (09/25/2024 7:30 PM EST) Osmolality Aleksey 298 280 - 300 mOsm/kg LAB CHEMISTRY METHOD 09/25/2024 8:34 PM EST [facility] Blood Venous blood specimen / Unknown Venipuncture / Unknown 09/25/2024 7:30 PM EST 09/25/2024 7:37 PM EST Savage Frank DO LAB BLOOD ORDERABLES Final Resu lt Performing Organization Address [facility] de Phone Number [facility] [address] [place] [address], * Magnesium (09/25/2024 7:30 PM EST) Pathologist [facility] Magnesium 2.0 1.9 - 2.6 mg/dL LAB CHEMISTRY METHOD 09/25/2024 8:11 PM EST [facility] Blood Venous blood specimen / Unknown Venipuncture / Unknown 09/25/2024 7:30 PM EST 09/25/2024 7:37 PM EST Savage Frank DO LAB BLOOD ORDERABLES Final Resu lt Performing Organization Address [facility] de Phone Number [facility] [address] [place] [address], [place] [phone] * Lipase (09/25/2024 7:30 PM EST) [facility] Lipase 39 13 - 75 unit/L LAB CHEMISTRY METHOD 09/25/2024 8:11 PM EST [facility] Blood Venous blood specimen / Unknown Venipuncture / Unknown 09/25/2024 7:30 PM EST 09/25/2024 7:37 PM EST Savage Frank DO LAB BLOOD ORDERABLES Final Resu lt Performing Organization Address [facility]/ZIP Co de Phone Number [facility] [address] [place] [address], [place] [phone] * (ABNORMAL) Comprehensive metabolic panel (09/25/2024 7:30 PM EST) Pathologist [facility] Sodium 131(L) 133 - 145 mmol/L LAB CHEMISTRY METHOD 09/25/2024 8:22 PM EST [facility] Potassium 4.1 3.5 - 5.5 mmol/L LAB CHEMISTRY METHOD 09/25/2024 8:22 PM [facility] Chloride 100 96 - 110 mmol/L LAB CHEMISTRY METHOD 09/25/2024 8:22 PM [facility] CO2 28 21 - 32 mmol/L LAB CHEMISTRY METHOD 09/25/2024 8:22 PM [facility] Anion Gap 3 3 - 11 LAB CHEMISTRY METHOD 09/25/2024 8:22 PM [facility] Glucose 310(H) 70 - 100 mg/dL LAB CHEMISTRY METHOD 09/25/2024 8:22 PM [facility] BUN 11 5 - 25 mg/dL LAB CHEMISTRY METHOD 09/25/2024 8:22 PM [facility] Creatinine 0.76 0.50 - 1.10 mg/dL LAB CHEMISTRY METHOD 09/25/2024 8:22 PM [facility] eGFR 94 >=60 mL/min/1. 73m2 LAB CHEMISTRY METHOD 09/25/2024 8:22 PM [facility] Comment:Calculation based on the??Chronic Kidney Disease Epidemiology Collaboration (CKD-EPI) equation refit??without adjustment for race. BUN/Creatinine Ratio 14.5 LAB CHEMISTRY METHOD 09/25/2024 8:22 PM [facility] Calcium 9.3 8.5 - 10.5 mg/dL LAB CHEMISTRY METHOD 09/25/2024 8:22 PM [facility] AST (SGOT) 33 10 - 42 unit/L LAB CHEMISTRY METHOD 09/25/2024 8:22 PM [facility] ALT (SGPT) 46 10 - 60 unit/L LAB CHEMISTRY METHOD 09/25/2024 8:22 PM [facility] Alkaline Phosphatase 103 42 - 121 unit/L LAB CHEMISTRY METHOD 09/25/2024 8:22 PM [facility] Total Protein 7.9 6.0 - 8.0 g/dL LAB CHEMISTRY METHOD 09/25/2024 8:22 PM [facility] Albumin 4.1 3.2 - 5.0 g/dL LAB CHEMISTRY METHOD 09/25/2024 8:22 PM EST [facility] Total Bilirubin 0.6 0.0 - 1.4 mg/dL LAB CHEMISTRY METHOD 09/25/2024 8:22 PM EST [facility] Blood Venous blood specimen / Unknown Venipuncture / Unknown 09/25/2024 7:30 PM EST 09/25/2024 7:37 PM EST us Savage Frank DO LAB BLOOD ORDERABLES Final Resu lt [facility] [address] [place] [address], documented in this encounter Visit Diagnoses Diagnosis [...] 09/05 documented in this encounter Care Teams [employer] Founder Relationship Specialty Start Date End Date Grisel Meraz MD [address] [place] [phone] PCP - General 09/16/22 documented as of this encounter
== END 2024-10-22 13:21 | disposition home or self-care (01) ==
PROVIDERS: PCP Pediatrics; Visit Provider Registered Nurse Diabetes Educator
DX: E11.65 Type 2 diabetes mellitus with hyperglycemia (principal); Z79.4 Long term (current) use of insulin

== ENCOUNTER → 2024-10-22 12:55 | Outpatient (BNVA) | payer OTHER, MEDICAID, SELFPAY | PROVIDERS: PCP Pediatrics; Visit Provider Registered Nurse Diabetes Educator | DX: E11.65 Type 2 diabetes mellitus with hyperglycemia (principal); Z46.81 Encounter for fitting and adjustment of insulin pump | CPT/HCPCS: 99211 ==

== ENCOUNTER 2024-11-19 15:05 | Outpatient (AMB) | payer OTHER, MEDICAID, SELFPAY ==
--- NOTE | 2024-11-19 09:30 | A.OFFVIS_ITS ---
Vital Signs 11/19/24 15:15 Height 5 ft 5 in Weight 171 lb 15.369 oz BMI 28.6 BP 110/107 H Blood Pressure Location Rt brachial Position Sitting Pulse 78 Pulse Source Pulse Oximeter Pulse Oximetry (%) 98 Oxygen Delivery Method Room Air Intake Visit Reasons: T1DM Intake Note: Patient presents today for a follow-up on Type 1 Diabetes Mellitus/iLet Insulin Pump: Last Diabetic eye exam was on: DUE Last Podiatry exam was on: Does not see a Tenant Relations Coordinator Most recent HbA1c: 12.1%, 10/09/2024 Random Glucose: 160 mg/dL, Today Promotion Manager Required: Yes Promotion Manager Language: Assessment Clinician Services: Promotion Manager Present Promotion Manager Name: YUSUF Linares/NEO MCKEON Information Interpreted: non-clinical & clinical Accompanied by: Self / Same As Patient Allergies acetaminophen [From Percocet] Allergy (Severe, Verified 10/09/24 15:30) Anaphylaxis oxycodone [From Percocet] Allergy (Severe, Verified 10/09/24 15:30) Anaphylaxis Vicodin Allergy (Unknown, Uncoded 10/09/24 15:30) Anaphylaxis HPI Comments Details: 54-year-old female Type 2 diabetic diagnosed approximately 2017 who is now back on an ilet insulin pump after a several month hiatus due to having had site infections at both the pump insertion set and sensor site. She was found to have nasal colonization of staph which was not MRSA and she was advised to use a Hibiclens wash once weekly and instructed to use antibacterial soap. Rigid sterile technique with inserting sensor and pump was reviewed with the patient extensively. She was not able to purchased the Hibiclens but has been using antibacterial soap. Dexcom average glucose: 177 I 14 day continuous glucose monitor report reviewed Glucose Managment indicator 7.6 % TIme in ranges: 12.7 % very high (above 250) 32 % high ?(181-250) 53.9 % in range ?(70-180] 1.2 % low (69-55) 0.2 % ?very low (below 54) Interpretation [patient is not announcing any meals and istherefore having postprandial sugars to 300 the lows that she has had have been mild Total daily dose of insulin 70.9 36 units of basal 7-8 units of short acting She has misplaced her glucometer in his out of lancets Current diabetes regime pioglitazone 30 mg Most recent A1c 10/09/2511.1%: 07/24/24 8.4% down from previous A1c 04/23/2024 11%. Denies retinopathy. Last exam: she has been referred but missed appt to [facility] Dr. Urbina She has rescheduled with another provider Has neuropathy: Symptoms: + numbness, tingling and cramping in legs No Nephropathy:09/2023 microalbumin 8.0 eGFR>60 on low dose radha-1 Has HLD on statin 09/06/23 110 She complains of some shortness breath but denies chest pain. Has stong family hx of Type 2 DM [facility] Medical History Cellulitis Right groin pain Arthritis Elevated LFTs Fibromyalgia Bunion, left foot Migraine Asthma Seasonal allergies Mood disorder Joint pain Hyperlipidemia LDL goal <100 Type 2 diabetes mellitus with polyneuropathy Type 2 diabetes mellitus with hyperglycemia Surgical History Hx of colonoscopy (~2019) Hx of cholecystectomy Hx of foot surgery History of bilateral carpal tunnel release Hx of cataract surgery Family History Father Hypertension Mother Diabetes Colon cancer Brother Liver cancer Social History Household Members: Other Household Members Other:: Sister Alcohol intake: current Alcohol intake frequency: does not drink Patient Tobacco Use Status: Never used Tobacco Physical Exam Const Other: Absence of Cushingoid features. Absence of acromegalic features. Neck exam reveals nl size thyroid about 15 gms. No thyroid nodules palpable. . Lungs CTA. Heart S1 S2, Reg R/R. No M/R G. no adenopathy, mild swelling without exudate throat Skin exam reveals absence of vitiligo or acanthosis nigricans. No edema Visual exam of foot performed. No ulcerations or open lesions. No inter digit maceration or fissuring. No onychomycosis, no callouses. Sensation absent to monofilament exam. Vibratory sensation is absent with 128 Hz tuning fork. Office Procedures Glucose Monitoring Details Details: see [place] [id number] - Glucose monitoring, continuous-physician I&R Procedure code (CPT) selection complete Assessment & Plan Assessment & Plan (1) Type 2 diabetes mellitus with polyneuropathy: Code(s): E11.42 - Type 2 diabetes mellitus with diabetic polyneuropathy Category: Medical Plan: Type 2 diabetic on islet insulin pump along with pioglitazone with improving glucose numbers. She was asked to consistently announce her coffee meal which tends to be a higher carb meal and is causing her sugars to bump up temporarily to 300. We reviewed the importance of always having a functional glucometer with test strips and lancets. If her pump is not connected to a G7 after several hours it will stop operating a will no longer infusing insulin. Prescription for new glucometer test strips and lancets were sent and she was advised that should the situation occur she would need to manually enter her glucose readings every 4 hours. She was also advised that she could also check with our office to see if we have any G7 sensors but that we can not consistently count on this. She was advised to speak with her PCP about the dyspnea she has been having. The patient had an opportunity to ask questions regarding treatment plan. The patient expressed understanding and agreement with the above treatment plan. The patient is aware they should contact our office by phone for worsening glucose readings or for any low blood sugars which may warrant a change in diabetes medication. Compliance is encouraged with medications and any followup testing/consults which may have been ordered. (2) High thyroid stimulating hormone (TSH) level: Code(s): R79.89 - Other specified abnormal findings of blood chemistry Category: Medical Plan: patient will have repeat tft's done. Recent TSH was elevated. Orders: Orders Basic Metabolic Panel Today E11.65 - Type 2 diabetes mellitus with hyperglycemia, Z79.4 - long term care phlebotomist (current) use of insulin Microalbumin, Random (w Creat) Today E11.65 - Type 2 diabetes mellitus with hyperglycemia, Z79.4 - long term care phlebotomist (current) use of insulin Thyroid Peroxidase Antibodies Today R79.89 - Other specified abnormal findings of blood chemistry AMB Glucose Monitoring Today E11.65 - Type 2 diabetes mellitus with hyperglycemia, Z79.4 - long-term (current) use of insulin Lipid Panel Today E11.65 - Type 2 diabetes mellitus with hyperglycemia, Z79.4 - long term care phlebotomist (current) use of insulin Creatinine Urine Today E11.65 - Type 2 diabetes mellitus with hyperglycemia, Z79.4 - long-term (current) use of insulin Aspartate Amino Transferase Today E11.65 - Type 2 diabetes mellitus with hyperglycemia, Z79.4 - long-term (current) use of insulin Alanine Aminotransferase Today E11.65 - Type 2 diabetes mellitus with hyperglycemia, Z79.4 - long term care phlebotomist (current) use of insulin Thyroid Stimulating Hormone Today R79.89 - Other specified abnormal findings of blood chemistry Free T4 (Free Thyroxine) Today R79.89 - Other specified abnormal findings of blood chemistry Medications: Changed From blood sugar diagnostic (OneTouch Ultra Test strips) P.r.n. sensor failure every 4 hours 100 ea 4RF E11.65 - Type 2 diabetes mellitus with hyperglycemia, Z79.4 - long-term (current) use of insulin To OneTouch Ultra Test (blood sugar diagnostic) P.r.n. sensor failure every 4 hours 100 ea 4RF NS E11.65 - Type 2 diabetes mellitus with hyperglycemia, Z79.4 - long-term (current) use of insulin From blood-glucose meter As directed for use with sensor failure 1 ea 0RF E11.42 - Type 2 diabetes mellitus with diabetic polyneuropathy To blood-glucose meter As directed for use with sensor failure dispense as one touch ultra 1 ea 0RF E11.42 - Type 2 diabetes mellitus with diabetic polyneuropathy Refilled acetone (urine) test (Ketostix strips) tid prn nausea, vomiting,illness, glucose over 250 50 ea 4RF lancets prn q 4 hours for pump failure for use with one touch meter 100 ea 1RF E11.65 - Type 2 diabetes mellitus with hyperglycemia, Z79.4 - long-term (current) use of insulin Patient Instructions: Troubleshooting after starting new pod or inserting new insulin set: Occlusion, adhesive tape sensitivity, redness Check BG 2 hours after site change Safety information: Importance of a backup plan, for manual injections, proper prescriptions and emergency supplies ketone strips, and rules for testing for ketones Symptoms of DKA (diabetic ketoacidosis): early: frequent urination, dry mouth, fatigue, feeling ill, severe symptoms: ketones in the urine, abdominal pain, nausea, vomiting and weakness. It is important to hydrate with sugar free liquids every 15-30 minutes and bring the sugars down to normal levels. If you are moderate or severe with ketones or unable to bring glucose to less than 200, go to the emergency room. Check your feet daily looking for any signs of infection, drainage, redness, ulceration and seek medical attention if this occurs. Break in shoes gradually and do not wear open-toed shoes or walk stocking footed or barefooted. Patient was advised she is at greater risk for foot ulcer due to her neuropathy on the importance of foot care is extremely important. Coding Level of Care Code Est Pt Level 4 (51083) Complex EM visit Add On G2211 Diagnoses Type 2 diabetes mellitus with polyneuropathy E11.42 High thyroid stimulating hormone (TSH) level R79.89 CPT Codes Details - CPT: 11902 - Glucose monitoring, continuous-physician I&R ([id number]) Time Spent (min) 35 Comment Time spent reviewing labs/provider notes, face to face, chart doc
[2024-11-19 15:15] VITALS: BP 110/107; PULSE 78; O2SAT 98; BMI 28.6
[2024-11-19 15:24] LABS: Glucose, Whole Blood 160 mg/dL (60-115)
--- OUTSIDE RECORDS SUMMARY | 2024-11-19 18:01 | XMS_ITS ---
Author Organization [facility] Address [address] [place] [address] Care Team Providers Care Leasing Assistant Name Role Phone Grisel Meraz MD Primary Care Provider [phone] Active Problems Problem Noted Date Diagnosed Date Non-Hodgkin's lymphoma 09/29/2022 Current Oncology Plans No current plan information found. Past Plans ONCOLOGY TREATMENT Plan Name Start Date Discontinue Date Treatment Medications Discontinue Reason Plan Provider [facility] BCN OP R-CHOP [id number] (R IV/SC) 3 11/07/2023 acetaminophen (TYLENOL)albuterol (PROVENTIL)cycloPHOSpham [...]
--- OUTSIDE RECORDS SUMMARY | 2024-11-19 18:01 | XMS_ITS | Encounter Summary ---
Author Organization [employer] Address [address] [facility] 7t [place] [address] Care Team Providers Care Mica Miner Name Role Phone Grisel Meraz MD Primary Care Provider [phone] Encounter Details Date Type Department Care Team ([facility] st Contact Info) Description 11/19/2024 Orders Only GENERIC EXTERNAL DATA DEPARTMENT Provider, Generic External Data Social History Tobacco Use Types Packs/Day Years Used Date Smoking Tobacco: Never Passive Smoke Exposure: Never Smokeless Tobacco: Never Depression Answer Date Recorded Patient Health Questionnaire-9 Score 21 10/26/2022 Housing Stability Answer Date Recorded What is your housing situation today? I have ruiz adilene 06/19/[address] you li [...] Care Team (Late st Contact Info) Description 12/04/2024 11:30 AM EDT Office Visit [facility] [address] [place] [address] Grisel Meraz MD [address] [place] [address] 12/25/2024 3:15 PM EDT Clinical Support [facility] [address] [place] [address] Zoe Patrick RN 505 [place] [address] 01/02/2025 11:30 AM EDT Office Visit [facility] [address] [place] [address] Grisel Meraz MD [address] [place] [address] 01/09/2025 3:00 PM EDT Office Visit [facility] [address] [place] [address] Flex, Antonella, OD [address] [place] [address] documented as of this encounter Procedures Procedure Name Priority Date/Time Associated Diagnosis Comments GLUCOSE, WHOLE BLOOD Routine 11/19/2024 3:19 PM EDT documented in this encounter Results * (ABNORMAL) Glucose, Whole Blood (11/19/2024 3:19 PM EDT) Glucose, Whole Blood 160(H) 60 - 115 mg/dL [facility] Comment:METER #: [id number] 5Testing performed in the Endocrinology Department [address] , [address], [facility]. 11/19/2024 3:19 PM EDT 11/19/2024 3:24 PM EDT us Generic External Data Provider LAB BLOOD ORDERAB LES Final Result [facility] [address] [place] [address] [phone] documented in this encounter Visit Diagnoses Not on filedocumented in this encounter Additional Health Concerns Assessment Noted Time PHQ-9 Depression Total Score: 21 023 11:24 AM EST documented as of this encounter Care Teams Mica Miner Relationship Specialty Start Date End Date Grisel Meraz MD [address] [place] [address] PCP - General Family Medicine 03/06/19 documented as of this encounter
--- OUTSIDE RECORDS SUMMARY | 2024-11-19 18:01 | XMS_ITS | Encounter Summary ---
Author Organization [employer] Address [address] [facility] 7t [place] [address] Care Team Providers Care Retail Field Supervisor Name Role Phone Grisel Meraz MD Primary Care Provider Encounter Details Date Type Department Care Team (Late st Contact Info) Description 07/11/[address] [facility] [address] [place] [address] Grisel Meraz MD [address] [place], [place] [phone] Social History Tobacco Use Types Packs/Day Years [...] Upcoming Encounters Date Type Department Care Team ([facility] st Contact Info) Description 12/04/2024 11:30 AM EDT Office Visit [facility] [address] [place] [address] Grisel Meraz MD 505 [place] [address] 12/25/2024 3:15 PM EDT Clinical Support [facility] [address] [place] [address] Zoe Patrick, TREVER [address] [place] [address] 01/02/2025 11:30 AM EDT Office Visit [facility] [address] [place] [address] Grisel Meraz MD [address] [place] [address] 01/09/2025 3:00 PM EDT Office Visit [facility] [address] [place] [address] Antonella Mccord, OD [address] [place] [address] documented as of this encounter Procedures Procedure Name Priority Date/Time Associated Diagnosis Comments COLONOSCOPY Routine 11/22/2016 documented in this encounter Results * Hm Colonoscopy (11/22/2016) Colonoscopy Normal Normal Narrative Vianey Ross - 11/22/2016 Recommended 5 year follow up us Historical Provider HEALTH MAINTENANCE Final Result documented in this encounter Visit Diagnoses Not on filedocumented in this encounter Additional Health Concerns Assessment Noted Time PHQ-9 Depression Total Score: 21 023 11:24 AM EST documented as of this encounter Care Teams Retail Field Supervisor Relationship Specialty Start Date End Date Grisel Meraz MD [address] [place] [address] PCP - General Family Medicine 03/06/19 documented as of this encounter
--- OUTSIDE RECORDS SUMMARY | 2024-11-19 18:01 | XMS_ITS | Encounter Summary ---
Author Organization [employer] Address [address] [place] [address] 7 [place] [address] Care Team Providers Care Inbound Ingredient Logistics Specialist Name Role Phone Grisel Meraz MD Primary Care Provider [phone] Reason for Referral * Consultation (Routine) - Authorized Specialty Diagnoses / Procedures Referred By Contac t Referred To Contact Sleep Medicine Diagnoses BETSY (obstructive sleep apnea) RLS (restless legs syndrome) Grisel Meraz MD [address] [place] [address] Phone: tel: fax: [facility] [address] [facility], [address] [place] [address] Phone: tel: fax: Referral ID Status Reason Start Date Expiration Date Visits Requested Visits Authorized [id number] Authorized Consult and Treat 11/15/2024 11/15/2025 1 1 Scheduling Instructions [facility] medicine of [facility] please since this is where she had her sleep study done thanks Encounter Details Date Type Department Care Team (Late st Contact Info) Description 11/15/2024 Orders Only [facility] [address] [place], [place] [phone] Grisel Meraz MD [address] [place] [address] BETSY (obstructive sleep apnea) (Primary Dx); RLS (restless legs syndrome) Social History Tobacco Use Types Packs/Day Years [...] Upcoming Encounters Date Type Department Care Team ([facility] st Contact Info) Description 12/04/2024 11:30 AM EDT Office Visit [facility] [address] [place] [address] Grisel Meraz MD [address] [place] [address] 12/25/2024 3:15 PM EDT Clinical Support [facility] [address] [place] [address] Zoe Patrick RN 505 [place] [address] 01/02/2025 11:30 AM EDT Office Visit [facility] [address] [place] [address] Grisel Meraz MD [address] [place] [address] 01/09/2025 3:00 PM EDT Office Visit [facility] [address] [place], [place] [phone] Felx, Antonella, OD [address] [place], [place] [phone] Scheduled Referrals Name Type Priority Associated Diagnoses Orde r Schedule Referral to Sleep Medicine Outpatient Referral Routine BETSY (obstructive sleep apnea) RLS (restless legs syndrome) Expected: 11/15/2024 (Approximate), Expires: 11/15/2025 documented as of this encounter Visit Diagnoses Diagnosis BETSY (obstructive sleep apnea)- Primary Obstructive sleep apnea (adult) (pediatric) RLS (restless legs syndrome) Restless legs syndrome (RLS) documented in this encounter Additional Health Concerns Assessment Noted Time PHQ-9 Depression Total Score: 21 023 11:24 AM EST documented as of this encounter Care Teams Inbound Ingredient Logistics Specialist Relationship Specialty Start Date End Date Grisel Meraz MD [address] [place] [address] PCP - General Family Medicine 03/06/19 documented as of this encounter
--- OUTSIDE RECORDS SUMMARY | 2024-11-19 18:01 | XMS_ITS | Encounter Summary ---
Author Organization [employer] Address [address] [facility] [address] 7[address] [place] [address] Care Team Providers Care Tactical Response Group Officer Name Role Phone Grisel Meraz MD Primary Care Provider [phone] Encounter Details Date Type Department Care Team (Latest Contact Info) Description 11/04/2024 Travel Social History Tobacco Use Types Packs/Day [...] Description 12/04/2024 11:30 AM EDT Office Visit [facility] 505 [place] [address] Girsel Meraz MD 505 [place] [address] 12/25/2024 3:15 PM EDT Clinical Support [facility] [address] [place] [address] Zoe Patrick, TREVER [address] [place] [address] 01/02/2025 11:30 AM EDT Office Visit [facility] [address] [place] [address] Grisel Meraz MD [address] [place] [address] 01/09/2025 3:00 PM EDT Office Visit [facility] [address] [place] [address] Flex, Antonella, OD [address] [place] [address] documented as of this encounter Visit Diagnoses Not on filedocumented in this encounter Additional Health Concerns Assessment Noted Time PHQ-9 Depression Total Score: 21 023 11:24 AM EST documented as of this encounter Care Teams Tactical Response Group Officer Relationship Specialty Start Date End Date Grisel Meraz MD [address] [place] [address] PCP - General Family Medicine 03/06/19 documented as of this encounter
--- OUTSIDE RECORDS SUMMARY | 2024-11-19 18:01 | XMS_ITS | Encounter Summary ---
Author Organization [employer] Address [address] [facility] 7t [place] [address] Care Team Providers Care Freelance Director Name Role Phone Grisel Meraz MD Primary Care Provider [phone] Encounter Details Date Type Department Care Team (Late st Contact Info) Description 09/06/2024 Orders Only [facility] [address] [place], [place] [phone] Grisel Meraz MD [address] [place] [address] Boils of multiple sites (Primary Dx) Social [...] 12/04/2024 11:30 AM EDT Office Visit [facility] [address] [place] [address] Grisel Meraz MD 505 [place] [address] 12/25/2024 3:15 PM EDT Clinical Support [facility] [address] [place] [address] Zoe Patrick, TREVER [address] [place] [address] 01/02/2025 11:30 AM EDT Office Visit [facility] [address] [place] [address] Grisel Meraz MD 505 [place] [address] 01/09/2025 3:00 PM EDT Office Visit [facility] [address] [place] [address] Flex, Antonella, OD [address] [place] [address] documented as of this encounter Visit Diagnoses Diagnosis Boils of multiple sites- Primary documented in this encounter Additional Health Concerns Assessment Noted Time PHQ-9 Depression Total Score: 21 023 11:24 AM EST documented as of this encounter Care Teams Freelance Director Relationship Specialty Start Date End Date Grisel Meraz MD [address] [place] [address] PCP - General Family Medicine 03/06/19 documented as of this encounter
--- OUTSIDE RECORDS SUMMARY | 2024-11-19 18:01 | XMS_ITS | Clinical Summary ---
Author Organization [facility] Address [address] [place] [address] Care Team Providers Care Core Carrier Name Role Phone Grisel Meraz MD Primary Care Provider [phone] Allergies Active Allergy Reactions Criticality Noted Date [...] tablet by mouth daily. 0 07/08/2022 Active [place]-3 Fatty Acids (Fish Oil) 1000 MG CAPS [...] age to complete this topic Care Teams Core Carrier Relationship Specialty Start Date End Date Grisel Meraz MD [address] [place], [place] [phone] PCP - General Pediatrics 09/16/22
--- OUTSIDE RECORDS SUMMARY | 2024-11-19 18:02 | XMS_ITS | Encounter Summary ---
Author Organization [employer] Address [address] [facility] 7 [place] [address] Care Team Providers Care Ultrasound Coordinator Name Role Phone Grisel Meraz MD Primary Care Provider [phone] Reason for Visit * Reason Onset Date Comments triage 08/16/2022 Encounter Details Date Type Department Care Team (Late Contact Info) Description 08/16/2022 Telephone [facility] MED [facility] PEDS [address] [place], [place] [phone] Grisel Meraz MD [address] [place] [address] triage Social History Tobacco Use Types Packs/Day [...] report Losing weight x Months. Patient speaks (Austrian). Advised triage nurse will call patient back. documented in this encounter Plan of Treatment Upcoming Encounters Date Type Department Care Team ([facility] Contact Info) Description 12/04/2024 11:30 AM EDT Office Visit [facility] [address] [place] [address] Grisel Meraz MD [address] [place] [address] 12/25/2024 3:15 PM EDT Clinical Support [facility] [address] [place] [address] Zoe Patrick RN [address] [place], [place] 01/02/2025 11:30 AM EDT Office Visit [facility] [address] [place] [address] Grisel Meraz MD [address] [place] [address] 01/09/2025 3:00 PM EDT Office Visit [facility] OPT[facility] [address] [place] [address] Antonella Mccord, OD [address] [place] [address] documented as of this encounter Visit Diagnoses Not on filedocumented in this encounter Care Teams Ultrasound Coordinator Relationship Specialty Start Date End Date Grisel Meraz MD [address] [place] [address] PCP - General Family Medicine 03/06/19 documented as of this encounter
--- OUTSIDE RECORDS SUMMARY | 2024-11-19 18:02 | XMS_ITS | Encounter Summary ---
Author Organization [employer] [facility] Address [address] [place] [address] Care Team Providers Care Assembly Department Supervisor Name Role Phone Grisel Meraz MD Primary Care Provider [phone] Encounter Details Date Type Department Care Team Description 11/01/2022 Social Work [facility] Oncology Services [address] [place] [address] Grabiel Silva [facility] Social History Tobacco Use Types Packs/Day Years [...] on filedocumented in this encounter Care Teams Assembly Department Supervisor Relationship Specialty Start Date End Date Grisel Meraz MD [address] [facility] [place] [address] PCP - General Pediatrics 09/16/22 documented as of this encounter
--- OUTSIDE RECORDS SUMMARY | 2024-11-19 18:02 | XMS_ITS | Encounter Summary ---
Author Organization [employer] Address [address] [place] [address] Care Team Providers Care Orientation And Mobility Instructor Name Role Phone Grisel Meraz MD Primary Care Provider [phone] Reason for Visit * Reason Onset Date Comments Appointment Request 02/22/2023 Encounter Details Date Type Department Care Team ([facility] Contact Info) Description 02/22/2023 Telephone [facility]EDS [address] [place] [address] Grisel Meraz MD [address] [place] [address] Appointment Request Social History Tobacco Use Types [...] are being required. Please contact pt at [phone] Indonesian Speaker documented in this encounter Plan of Treatment Upcoming Encounters Date Type Department Care Team (Late st Contact Info) Description 12/04/2024 11:30 AM EDT Office Visit [facility] [address] [place] [address] Grisel Meraz MD [address] [place] [address] 12/25/2024 3:15 PM EDT Clinical Support [facility] PED[facility] [address] [place] [address] Zoe Patrick, TREVER [address] [place] [address] 01/02/2025 11:30 AM EDT Office Visit [facility] [address] [place] [address] Grisel Meraz MD [address] [place] [address] 01/09/2025 3:00 PM EDT Office Visit [facility] OPT[facility]ET[facility] [address] [place] [address] FlexAntonella montgomery, OD [address] [place] [address] documented as of this encounter Visit Diagnoses Not on filedocumented in this encounter Additional Health Concerns Assessment Noted Time PHQ-9 Depression Total Score: 21 023 11:24 AM EST documented as of this encounter Care Teams Orientation And Mobility Instructor Relationship Specialty Start Date End Date Grisel Meraz MD [address] [place] [address] PCP - General Family Medicine 03/06/19 documented as of this encounter
--- OUTSIDE RECORDS SUMMARY | 2024-11-19 18:02 | XMS_ITS | Encounter Summary ---
Author Organization [facility] [facility] Address [address] [place] [address] Care Team Providers Care Efficiency Clerk Name Role Phone Grisel Meraz MD Primary Care Provider [phone] Encounter Details Date Type Department Care Team Description 12/20/2022 Social Work [facility] Oncology Services [address] [place] [address] Grabiel Silva [facility] Social History Tobacco Use Types Packs/Day Years [...] on filedocumented in this encounter Care Teams Efficiency Clerk Relationship Specialty Start Date End Date Grisel Meraz MD [address] [facility] [place] [address] PCP - General Pediatrics 09/16/22 documented as of this encounter
--- OUTSIDE RECORDS SUMMARY | 2024-11-19 18:02 | XMS_ITS | Encounter Summary ---
Author Organization [employer] Address [address] [facility] 7t [place] [address] Care Team Providers Care Skirt Panel Assembler Name Role Phone Grisel Meraz MD Primary Care Provider [phone] Reason for Visit * Reason Comments controlled substance treatment Encounter Details Date Type Department Care Team (Latest Contact Info) Description 11/06/2024 11:00 AM EST Clinical Support [facility] MED & PEDS [address] [place] [address] Zoe Patrick, RN [address] [place] [address] Long-term current use of opiate analgesic Social History Tobacco Use Types Packs/Day Years [...] the past 12 months, has t he [employer], gas, oil or water [employer] threatened to shut off services in your [...] AM EDT documented as of this encounter Progress Notes * Zoe Patrick RN - 11/06/2024 11:00 AM EST S: BENDER MACHINE initial NV. Patient prescribed Tramadol 50mg q6hr PRN for lymphoma. Rx was prescribed by oncologist, but they will not continue and PCP will take over prescribing Tramadol (see note from PCP 10/31/24). Patient states she takes medication only as needed. Patient denies nicotine, ETOH or illicit drugs use. States sometimes uses THC gummies for pain. Currently rates pain a 5/10 located all over the body. States medication is about 70% effective at alleviating pain when taken. Last PCP f/u 10/31/24. Chronic pain group pamphlet given, patient not interested. BENDER MACHINE Agreement initiated today. O: HOT TAMALE MAN verified today. Rx last filled 10/24/24 From oncologist (see above). Pill count not performedas patient did not bring pills to the visit as it is his first visit. Advised to bring pills to allthe BENDER MACHINE visits/ when requested. BPI form completed today. Pain severity score of (8), activity interference score of (8). Utox performed, positive for THC only. Opioid Risk Tool performed, high risk.PCP will be notified. A: BENDER MACHINE Agreement Initiation: Opioid dependence related to chronic pain. P: Patient to continue taking medication only as prescribed; Next BENDER MACHINE RV appointment scheduled for 12/25/24 @ 3:15am. F/u with PCP 12/04/24. Appt reminder given. F/U sooner PRN. Patient verbalized understanding and agreed to plan. documented in this encounter Plan of Treatment Upcoming Encounters Date Type Department Care Team (Late st Contact Info) Description 12/04/2024 11:30 AM EDT Office Visit [facility] MED & PEDS [address] [place] [address] Grisel Meraz MD [address] [place] [address] 12/25/2024 3:15 PM EDT Clinical Support [facility] MED [facility] PED[facility] [address] [place] [address] Zoe Patrick RN [address] [place] [address] 01/02/2025 11:30 AM EDT Office Visit [facility] [address] [place] [address] Grisel Meraz MD [address] [place] [address] 01/09/2025 3:00 PM EDT Office Visit [facility] OPTOMETRY [address] [place] [address] Flex, Antonella, OD [address] [place] [address] documented as of this encounter Procedures Procedure Name Priority Date/Time Associated Diagnosis Comments POCT ROSELYN-14 URINE DRUG SCREEN Routine 11/06/2024 11:25 AM EST Long-term current use of opiate analgesic documented in this encounter Results * POCT ROSELYN-14 Urine Drug Screen (11/06/2024 11:25 AM EST) THC Positive Urine Urine specimen obtained by clean catch procedure / Unknown 11/06/2024 11:25 AM EST Narrative Zoe Patrick, TREVER - 11/06/2024 11:25 AM EST Lot# [id number] Exp: 04-23-26 us Grisel Meraz MD POINT OF CARE TEST ENTER/EDIT ORDERABLES Final Result documented in this encounter Visit Diagnoses Diagnosis Long-term current use of opiate analgesic Encounter for long-term (current) use of other medications documented in this encounter Additional Health Concerns Assessment Noted Time PHQ-9 Depression Total Score: 21 023 11:24 AM EST documented as of this encounter Care Teams Skirt Panel Assembler Relationship Specialty Start Date End Date Grisel Meraz MD [address] [place] [address] PCP - General Family Medicine 03/06/19 documented as of this encounter
--- OUTSIDE RECORDS SUMMARY | 2024-11-19 18:02 | XMS_ITS | Encounter Summary ---
Author Organization [employer] Address [address] [facility] 7 [place] [address] Care Team Providers Care Flame Cutting Machine Operator Helper Name Role Phone Grisel Meraz MD Primary Care Provider [phone] Reason for Visit * Reason Comments Med Refill Encounter Details Date Type Department Care Team ([facility] Contact Info) Description 10/31/2024 Refill [facility] MED & PEDS [address] [place] [address] Grisel Meraz MD [address] [place] [address] Social History Tobacco Use Types Packs/Day Years [...] Description 12/04/2024 11:30 AM EDT Office Visit [facility] MED [facility] PEDS [address] [place] [address] rGisel Meraz MD [address] [place] [address] 12/25/2024 3:15 PM EDT Clinical Support [facility] PEDS [address] [place] [address] Zoe Patrick, TREVER [address] [place] [address] 01/02/2025 11:30 AM EDT Office Visit [facility] MED & PEDS [address] [place] [address] Grisel Meraz MD [address] [place] [address] 01/09/2025 3:00 PM EDT Office Visit [facility] OPTOMETRY [address] [place] [address] Flex, Antonella, OD [address] [place] [address] documented as of this encounter Visit Diagnoses Not on filedocumented in this encounter Additional Health Concerns Assessment Noted Time PHQ-9 Depression Total Score: 21 023 11:24 AM EST documented as of this encounter Care Teams Flame Cutting Machine Operator Helper Relationship Specialty Start Date End Date Grisel Meraz MD [address] [place] [address] PCP - General Family Medicine 03/06/19 documented as of this encounter
--- OUTSIDE RECORDS SUMMARY | 2024-11-19 18:02 | XMS_ITS | Encounter Summary ---
Author Organization [employer] Address [address] [place] [address] Care Team Providers Care Floor Technician Name Role Phone Grisel Meraz MD Primary Care Provider [phone] Encounter Details Date Type Department Care Team (Latest Contact Info) Description 10/31/2024 Travel Social History Tobacco Use Types Packs/Day [facility] [address] [place] [address] Grisel Meraz MD [address] [place] [address] 12/25/2024 3:15 PM EDT Clinical Support [facility] MED & PEDS [address] [place] [address] Zoe Patrick, TREVER [address] [place] [address] 01/02/2025 11:30 AM EDT Office Visit [facility] MED & PEDS [address] [place] [address] Grisel Meraz MD [address] [place] [address] 01/09/2025 3:00 PM EDT Office Visit [facility] OPTOMETRY [address] [place] [address] Flex, Antonella, OD [address] [place] [address] documented as of this encounter Visit Diagnoses Not on filedocumented in this encounter Additional Health Concerns Assessment Noted Time PHQ-9 Depression Total Score: 21 023 11:24 AM EST documented as of this encounter Care Teams Floor Technician Relationship Specialty Start Date End Date Grisel Meraz MD [address] [place] [address] PCP - General Family Medicine 03/06/19 documented as of this encounter
--- OUTSIDE RECORDS SUMMARY | 2024-11-19 18:02 | XMS_ITS | Encounter Summary ---
Author Organization [employer] Address [address] [facility] [address] [place] [address] Care Team Providers Care Whale Trainer Name Role Phone Grisel Meraz MD Primary Care Provider [phone] Encounter Details Date Type Department Care Team ([facility] st Contact Info) Description 09/27/2024 Orders Only [facility] [address] [place] [address] Provider, MD Silverio Social History Tobacco Use Types Packs/Day Years [...] Description 12/04/2024 11:30 AM EDT Office Visit [facility] [address] [place] [address] Grisel Meraz MD [address] [place] [address] 12/25/2024 3:15 PM EDT Clinical Support [facility] [address] [place] [address] Zoe Patrick RN [address] [place] [address] 01/02/2025 11:30 AM EDT Office Visit [facility] [address] [place] [address] Grisel Meraz MD [address] [place] [address] 01/09/2025 3:00 PM EDT Office Visit [facility] [address] [place] [address] Flex, Antonella, OD [address] [place] [address] documented as of this encounter Procedures Procedure Name Priority Date/Time Associated Diagnosis Comments XR CHEST 2 VIEWS Routine 09/26/2024 9:20 AM EST documented in this encounter Results * XR Chest 2 Views (09/26/2024 9:20 AM EST) Anatomical Region Laterality Modality Chest Radiographic Sherita ging us Historical Provider MD GAMBINO XR PROCEDURES Final R esult documented in this encounter Visit Diagnoses Not on filedocumented in this encounter Additional Health Concerns Assessment Noted Time PHQ-9 Depression Total Score: 21 023 11:24 AM EST documented as of this encounter Care Teams Whale Trainer Relationship Specialty Start Date End Date Grisel Meraz MD [address] [place] [address] PCP - General Family Medicine 03/06/19 documented as of this encounter
--- OUTSIDE RECORDS SUMMARY | 2024-11-19 18:02 | XMS_ITS | Encounter Summary ---
Author Organization [employer] Address [address] [facility] [address] [place] [address] Care Team Providers Care Political Science Research Assistant Name Role Phone Grisel Meraz MD Primary Care Provider [phone] Encounter Details Date Type Department Care Team (Latest Contact Info) Description 11/06/2024 Travel Social History Tobacco Use Types Packs/Day [...] Description 12/04/2024 11:30 AM EDT Office Visit [facility] MED & PEDS [address] [place] [address] Grisel Meraz MD [address] [place] [address] 12/25/2024 3:15 PM EDT Clinical Support [facility] MED & PEDS [address] [place] [address] Zoe Patrick, TREVER [address] [place] [address] 01/02/2025 11:30 AM EDT Office Visit [facility] MED & PEDS [address] [place] [address] Grisel Meraz MD [address] [place] [address] 01/09/2025 3:00 PM EDT Office Visit [facility] OPTOMETRY [address] [place] [address] Flex, Antonella, OD [address] [place] [address] documented as of this encounter Visit Diagnoses Not on filedocumented in this encounter Additional Health Concerns Assessment Noted Time PHQ-9 Depression Total Score: 21 023 11:24 AM EST documented as of this encounter Care Teams Political Science Research Assistant Relationship Specialty Start Date End Date Grisel Meraz MD [address] [place] [id number] PCP - General Family Medicine 03/06/19 documented as of this encounter
--- OUTSIDE RECORDS SUMMARY | 2024-11-19 18:02 | XMS_ITS | Encounter Summary ---
Author Organization [employer] Address [address] [facility] [address] [place] [address] Care Team Providers Care Auto Research Engineer Name Role Phone Grisel Meraz MD Primary Care Provider [phone] Reason for Visit * Reason Onset Date Comments Med Refill 10/24/2024 Encounter Details Date Type Department Care Team ([facility] Contact Info) Description 10/24/2024 Telephone [facility]EDS [address] [place] [address] Grisel Meraz MD [address] [place] [address] Med Refill Social History Tobacco Use Types Packs/Day Years [...] t he electric, gas, oil or water [employer] threatened to shut off services in your [...] encounter Miscellaneous Notes * Telephone Encounter - Zoe Patrick RN - 10/25/2024 10:54 AM EST TC to pt regarding message below. Spoke with PCP, pt has been receiving Tramadol rx from an oncologist, to contact their office for refills. No answer, lmv for pt. * Telephone Encounter - Zoe Patrick RN - 10/25/2024 10:28 AM EST Pt asking for a refill of Tramadol. [facility] shows last filled 10/24/24 qty 64 from an outside provider. * Telephone Encounter - Asya Waite - 10/24/2024 4:16 PM EST TC from pt requesting medication refill. Medications needing refill : traMADol (Ultram) 50 MG tablet To be sent to: [facility] documented in this encounter Plan of Treatment Upcoming Encounters Date Type Department Care Team (Late st Contact Info) Description 12/04/2024 11:30 AM EDT Office Visit [facility] MED & PEDS [address] [place] [address] Grisel Meraz MD [address] [place], [place] [phone] 12/25/2024 3:15 PM EDT Clinical Support [facility] MED & PEDS [address] [place] [address] Zoe Patrick, RN [address] [place] [address] 01/02/2025 11:30 AM EDT Office Visit [facility] MED & PEDS [address] [place] [address] Grisel Meraz MD [address] [place] [address] 01/09/2025 3:00 PM EDT Office Visit [facility] OPTOMETRY [address] [place] [address] Antonella Mccord, OD [address] [place] [address] documented as of this encounter Visit Diagnoses Not on filedocumented in this encounter Additional Health Concerns Assessment Noted Time PHQ-9 Depression Total Score: 21 023 11:24 AM EST documented as of this encounter Care Teams Auto Research Engineer Relationship Specialty Start Date End Date Grisel Meraz MD [address] [place] [address] PCP - General Family Medicine 03/06/19 documented as of this encounter
--- OUTSIDE RECORDS SUMMARY | 2024-11-19 18:02 | XMS_ITS | Encounter Summary ---
Author Organization [employer] Address [address] [facility] 7 [place] [address] Care Team Providers Care Metal Reed Tuner Name Role Phone Grisel Meraz MD Primary Care Provider [phone] Reason for Visit * Reason Comments Med Refill Encounter Details Date Type Department Care Team ([facility] Contact Info) Description 11/17/2024 Refill [facility] [address] [place] [address] Grisel Meraz MD [address] [place], [place] [id number] Type 2 diabetes mellitus with hyperglycemia, with long-term current use of insulin ([facility]) Social History Tobacco Use Types Packs/Day Years [...] Description 12/04/2024 11:30 AM EDT Office Visit [facility] MED & PEDS [address] [place] [address] Grisel Meraz MD [address] [place] [address] 12/25/2024 3:15 PM EDT Clinical Support [facility] MED & PEDS [address] [place] [address] Zoe Patrick RN [address] [place] [address] 01/02/2025 11:30 AM EDT Office Visit [facility] MED & PEDS [address] [place] [address] Grisel Meraz MD [address] [place] [address] 01/09/2025 3:00 PM EDT Office Visit [facility] OPTOMETRY [address] [place], [place] [phone] Antonella Mccord, OD [address] [place] [address] documented as of this encounter Visit Diagnoses Diagnosis Type 2 diabetes mellitus with hyperglycemia, with long-term current use of insulin ([facility]) documented in this encounter Additional Health Concerns Assessment Noted Time PHQ-9 Depression Total Score: 21 023 11:24 AM EST documented as of this encounter Care Teams Metal Reed Tuner Relationship Specialty Start Date End Date Grisel Meraz MD [address] [place] [address] PCP - General Family Medicine 03/06/19 documented as of this encounter
--- OUTSIDE RECORDS SUMMARY | 2024-11-19 18:02 | XMS_ITS | Encounter Summary ---
Author Organization [employer] [facility] Address [address] [facility] [address] [place] [address] Care Team Providers Care Account Manager Sales Representative Name Role Phone Grisel Meraz MD Primary Care Provider [phone] Encounter Details Date Type Department Care Team (Latest Contact Info) Description 07/06/2022 Abstract [facility] CONVERSIONS Dental, Provider, DDS Social History [...] 11:30 AM EDT Office Visit [facility] MED & PEDS [address] [place] [address] Grisel Meraz MD [address] [place] [address] 12/25/2024 3:15 PM EDT Clinical Support [facility] MED & PEDS [address] [place] [address] Zoe Patrick RN [address] [place] [address] 01/02/2025 11:30 AM EDT Office Visit [facility] MED & PEDS [address] [place] [address] Grisel Meraz MD [address] [place] [address] 01/09/2025 3:00 PM EDT Office Visit [facility] OPTOMETRY [address] [place] [address] Antonella Mccord, OD [address] [place] [address] documented as of this encounter Visit Diagnoses Not on filedocumented in this encounter Care Teams Account Manager Sales Representative Relationship Specialty Start Date End Date Grisel Meraz MD [address] [place] [address] PCP - General Family Medicine 03/06/19 documented as of this encounter
--- OUTSIDE RECORDS SUMMARY | 2024-11-19 18:02 | XMS_ITS | Clinical Summary ---
Author Organization [employer] Address [address] [facility] 7[address] [place] [address] Care Team Providers Care Back Padder Name Role Phone Grisel Meraz MD Primary Care Provider [phone] Allergies Active Allergy Reactions Criticality Noted Date [...] TABLET FOUR TIMES DAILY NEEDED FOR BLOATING 023 Active traZODone (Desyrel) 50 MG tablet Take 1 tablet by mouth at bedtime. 023 Active venlafaxine XR (Effexor XR) 150 MG 24 hr capsule Take 1 capsule by mouth in the morning. 023 Active Lantus SoloStar 100 UNIT/ML penIndications:T ype 2 diabetes mellitus without complication, with long-term current use of insulin (CMS/[facility]) Inject 30 Units under the skin at bedtime. 3 mL 11 023 Active TRUEplus Lancets 33G misc TEST BLOOD SUGAR FOUR TIMES DAILY 100 each 023 Active Alcohol Swabs (Alcohol Prep) 70 % pads Use 4 x a day as needed 100 each 023 Active BD Pen Needle Tania U/F 32G X 4 MM misc Inject under the skin 4 times daily. Use as instructed 100 each 023 Active Blood Glucose Monitoring Suppl ([employer]Di[employer] Mobile CRM Verio) w/Device kit CHECK BLOOD SUGAR FOUR TIMES [...] 1 (one) time per week. 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 (CMS/HCC) INJECT 2 TO 16 UNITS SUBCUTANEOUSLY FOUR TIMES DAILY 15 mL 6 023 Active insulin aspart FlexPen (NovoLOG) 100 UNIT/ML pen Use 10 units subcutaneously premeals tid or as per sliding scale 15 mL 11 023 Active OneTouch Verio test stripIndications :Type 2 diabetes mellitus without complications (CMS/HCC) TEST BLOOD SUGAR FOUR TIMES DAILY 100 strip 11 024 Active Multiple Vitamin (Multivitamin) tabletIndication s:Type 2 diabetes mellitus without complication, with long-term current use of insulin ([facility]) TAKE ONE TABLET EVERY MORNING 100 tablet 5 024 Active pioglitazone (Actos) 15 MG tablet TAKE ONE TABLET EVERY MORNING 30 tablet 11 024 Active gabapentin (Neurontin) 300 MG capsule TAKE ONE CAPSULE TWICE DAILY IN THE MORNING AND AT BEDTIME 180 capsule 3 024 Active budesonide-formo terol (Symbicort) 160-4.5 MCG/ACT inhaler 023 Active cloNIDine (Catapres) 0.1 MG tablet TAKE ONE TABLET TWICE DAILY IN THE MORNING AND AT BEDTIME NEEDED FOR SLEEP OR FOR ANXIETY Active loratadine (Claritin) 10 MG tablet TAKE ONE TABLET EVERY MORNING 90 tablet 1 025 Active rosuvastatin (Crestor) 40 MG tablet TAKE ONE TABLET EVERY MORNING 30 tablet 025 Active lisinopril 2.5 MG tablet TAKE ONE TABLET EVERY MORNING 30 tablet 025 Active traMADol (Ultram) 50 MG tabletIndication s:B-cell lymphoma of intra-abdominal lymph nodes, unspecified B-cell lymphoma type (CMS/HCC) TAKE ONE TABLET EVERY 6 HOURS NEEDED FOR SEVERE PAIN 30 tablet 025 Active Dulera 200-5 MCG/ACT inhaler INHALE TWO PUFFS TWICE DAILY IN THE MORNING AND AT BEDTIME, RINSE MOUTH AFTER USE 13 g 025 Active oxybutynin XL (Ditropan-XL) 5 MG 24 hr tabletIndication s:Type 2 diabetes mellitus with hyperglycemia, with long-term current use of insulin (CMS/[facility]) TAKE ONE TABLET EVERY MORNING 30 tablet 025 Active pantoprazole (ProtoNix) 40 MG EC tabletIndication s:Type 2 diabetes mellitus with hyperglycemia, with long-term current use of insulin (CMS/[facility]) TAKE ONE TABLET EVERY MORNING 30 tablet 025 Active traMADol (Ultram) 50 MG tabletIndication s:B-cell lymphoma of intra-abdominal lymph nodes, unspecified B-cell lymphoma type (CMS/HCC) TAKE ONE TABLET BY MOUTH TWICE DAILY NEEDED 20 tablet 023 2024 Discontinued mometasone-formo terol (Dulera 200) 200-5 MCG/ACT inhaler Inhale 2 puffs in the morning and at bedtime. Rinse mouth with water after use to reduce aftertaste and incidence of candidiasis. Do not swallow. 13 g 11 024 2024 Discontinued rosuvastatin (Crestor) 40 MG tablet TAKE ONE TABLET EVERY MORNING 30 tablet 5 024 2024 Discontinued lisinopril 2.5 MG tablet TAKE ONE TABLET EVERY MORNING 30 tablet 5 024 2024 Discontinued oxybutynin XL (Ditropan-XL) 5 MG 24 hr tabletIndication s:Type 2 diabetes mellitus with hyperglycemia, with long-term current use of insulin ([facility]) TAKE ONE TABLET EVERY MORNING 30 tablet 5 024 2024 Discontinued pantoprazole (ProtoNix) 40 MG EC tabletIndication s:Type 2 diabetes mellitus with hyperglycemia, with long-term current use of insulin ([facility]) TAKE ONE TABLET EVERY MORNING 30 tablet 5 024 2024 Discontinued doxycycline (Vibra-Tabs) 100 MG tablet Take 1 tablet (100 mg) by mouth 2 times daily for 10 days. Take with a full glass of water and do not lie down for at least 30 minutes after. 20 tablet 025 2024 mupirocin (Bactroban) 2 % ointment Apply topically 3 times daily for 10 days. 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 09/26/2022 Bunion 06/27/2018 Hyperlipidemia 06/27/2018 Migraine 06/27/2018 Mild intermittent asthma 06/27/2018 Mood disorder 06/27/2018 Multiple joint pain 06/27/2018 Seasonal allergies 06/27/2018 Type 2 diabetes mellitus without complication Encounters Date Type Department Care Team Description 11/19/2024 Orders Only GENERIC EXTERNAL DATA DEPARTMENT Provider, Generic External Data 11/17/2024 Refill [facility] [address] [place] [address] Grisel Meraz MD Type 2 diabetes mellitus with hyperglycemia, with long-term current use of insulin (CMS/HCC) 11/15/2024 Orders Only [facility] [address] [place] [address] Grisel Meraz MD BETSY (obstructive sleep apnea) (Primary Dx); RLS (restless legs syndrome) 11/06/2024 11:00 AM EST Clinical Support [facility] [address] [place] [address] Zoe Patrick RN Long-term current use of opiate analgesic 11/06/2024 Travel 11/04/2024 Travel 10/31/2024 2:00 PM EST Office Visit [facility] [address] [place] [address] Grisel Meraz MD Type 2 diabetes mellitus without complication, with long-term current use of insulin (CMS/HCC) (Primary Dx); Dysphagia, unspecified type; Boil, arm 10/31/2024 Refill [facility] [address] [place] [address] Grisel Meraz MD 10/31/2024 Travel 10/31/2024 Refill [facility] [address] [place] [address] Grisel Meraz MD B-cell lymphoma of intra-abdominal lymph nodes, unspecified B-cell lymphoma type (CMS/HCC) 10/24/2024 Telephone [facility] [address] [place] [address] Grisel Meraz MD Med Refill 10/24/2024 Telephone [facility] [address] [place] [address] Grisel Meraz MD Nurse Triage 10/21/2024 Refill [facility] [address] [place] [address] Grisel Meraz MD 10/18/2024 Orders Only GENERIC EXTERNAL DATA DEPARTMENT Provider, Generic External Data 10/16/2024 Refill [facility] [address] [place] [address] Grisel Meraz MD 10/09/2024 Orders Only GENERIC EXTERNAL DATA DEPARTMENT Provider, Generic External Data 09/27/2024 Orders Only [facility] [address] [place] [address] Silverio Schwab MD 09/25/2024 Orders Only GENERIC EXTERNAL DATA DEPARTMENT Provider, Generic External Data 09/06/2024 Orders Only [facility] [address] [place] [address] Grisel Meraz MD Boils of multiple sites (Primary Dx) 09/06/2024 Telephone [facility] [address] [place] [address] [phone] Brigette Hubbard RN Lab Orders 09/05/2024 1:20 PM EST Office Visit [facility] [address] [place] [address] Grisel Meraz MD Encounter for immunization (Primary Dx); Type 2 diabetes mellitus without complication, with long-term current use of insulin ([facility]); Boils of multiple sites; BETSY (obstructive sleep apnea); Multiple joint pain; Diabetes mellitus, labile (CMS/HCC); Non-Hodgkin lymphoma of intra-abdominal lymph nodes, unspecified non-Hodgkin lymphoma type (CMS/HCC); Dietary counseling; Exercise counseling 09/05/2024 Travel 09/02/2024 Travel from Last 3 Months Immunizations Name Administration Dates Next Due Influenza Injectable Quadriv alant Preservative Free IIV4 MDCK 10/14/2020 Influenza injectable quadriv alent IIV4 with preservative 05/30/2019,06/27/2018 Influenza injectable quadriv alent preservative free 06/28/2023 Influenza, seasonal, injecta ble, preservative free 09/05/2024 Moderna Covid-19 Vaccine 12+ 02/11/2021,01/15/20 21 Pneumococcal Polysaccharide PPSV23 03/10/2014 Tdap 10/06/2020, 8,12/23/2016,03/10 Zoster, Recombinant 11/07/2024,09/05/2024 Social History Tobacco Use Types Packs/Day Years [...] Sign Reading Time Taken Comments Blood Pressure 126/83 10/31/2024 2:21 PM EST Pulse 95 10/31/2024 2:21 PM EST Temperature 36.6 ??C (97.8 ??F) 10/31/2024 2:21 PM ES T Respiratory Rate 20 10/31/2024 2:21 PM EST Oxygen Saturation 97% 10/31/2024 2:21 PM EST Inhaled Oxygen Concentration - - Weight 75.8 kg (167 lb) 10/31/2024 2:21 PM EST Height 165.1 cm (5' 5 ) 10/31/2024 2:21 PM EST Body Mass Index 27.79 10/31/2024 2:21 PM EST Plan of Treatment Upcoming Encounters Date Type Department Care Team (Late st Contact Info) Description 12/04/2024 11:30 AM EDT Office Visit [facility] [address] [place] [address] Grisel Meraz MD [address] [place] [address] 12/25/2024 3:15 PM EDT Clinical Support [facility] [address] [place] [address] Zoe Patrick RN [address] [place] [address] 01/02/2025 11:30 AM EDT Office Visit [facility] [address] [place] [address] Grisel Meraz MD [address] [place] [address] 01/09/2025 3:00 PM EDT Office Visit [facility] [address] [place] [address] Flex, Antonella, OD [address] [place] [address] Health Maintenance Due Date Last Done Comments [...] Lipid Panel 09/06/2024 09/06/2023, 04/0 09/2021, 12/25/2020 Diabetes: Hemoglobin A1C 12/04/2024 025, 04/09/2024, 10/06/2023, [...] Completed 09/05/2024, , 10/14/2020, Additional history exists Zoster Vaccines Completed 11/07/2024, 09/05/2024 HIB Vaccines Aged Out No longer eligi [...] WHOLE BLOOD Routine 11/19/2024 3:19 PM EDT POLYSOMNOGRAM Routine 11/12/2024 EBTSY (obstructive sleep apnea) POCT ROSELYN-14 URINE DRUG SCREEN Routine 11/06/2024 11:25 AM EST Long-term current use of opiate analgesic POCT GLUCOSE Routine 10/31/2024 2:23 PM EST Type 2 diabetes mellitus without complication, with long-term current use of insulin ([facility]) GLUCOSE, WHOLE BLOOD Routine 10/18/2024 3:19 PM EST GLUCOSE, WHOLE BLOOD Routine 10/09/2024 3:32 PM EST XR CHEST 2 VIEWS Routine 09/26/2024 9:20 AM EST GLUCOSE, WHOLE BLOOD Routine 09/25/2024 3:08 PM EST POCT GLYCATED HEMOGLOBIN, TOTAL Routine 09/05/2024 1:57 PM EST Type 2 diabetes mellitus without complication, with long-term current use of insulin ([facility]) POCT GLUCOSE Routine 09/05/2024 1:57 PM EST Type 2 diabetes mellitus without complication, with long-term current use of insulin ([facility]) MRSA NASAL SCREEN Routine 09/05/2024 1:4 5 PM EST Boils of multiple sites BI MAMMOGRAM SCREENING BILATERAL Routine 11/16/2023 Encounter [...] Maintenance Results * (ABNORMAL) Glucose, Whole Blood (11/19/2024 3:19 PM EDT) Only the most recent of4 resultswithin the time period is included. Glucose, Whole Blood 160(H) 60 - 115 mg/dL [facility] Comment:METER #: [id number] 5Testing performed in the Endocrinology Department [address] , [address], [facility]. 11/19/2024 3:19 PM EDT 11/19/2024 3:24 PM EDT us Generic External Data Provider LAB BLOOD ORDERAB LES Final Result [facility] [address] [place] [phone] * Polysomnography (11/12/2024) us Grisel Meraz MD [facility] ORDERABLES Final Result * POCT ROSELYN-14 Urine Drug Screen (11/06/2024 11:25 AM EST) Pathologist [facility] THC Positive Urine Urine specimen obtained by clean catch procedure / Unknown 11/06/2024 11:25 AM EST Narrative Zoe Patrick RN - 11/06/2024 11:25 AM EST Lot# [id number] Exp: 04-23-26 Grisel Meraz MD POINT OF CARE TEST ENTER/EDIT ORDERABLES Final Result * POCT Glucose (10/31/2024 2:23 PM EST) Only the most recent of2 resultswithin the time period is included. Pathologist [facility] Glucose Blood, POC 89 60 - 200 mg/dL QC Media Lot # [id number] Lot# Expiration Date [id number] Blood Capillary blood specimen / Unknown 10/31/2024 2:23 PM EST Grisel Meraz MD POINT OF CARE TEST ENTER/EDIT ORDERABLES Final Result * XR Chest 2 Views (09/26/2024 9:20 AM EST) Anatomical Region Laterality Modality Chest Radiographic Sherita ging Historical Provider IMG XR PROCEDURES Final R esult * (ABNORMAL) POCT HGB A1C (09/05/2024 1:57 PM EST) Pathologist [facility] Hemoglobin A1C 9.2(A) 4.0 - 6.0 % QC Media Lot # [id number] Lot# Expiration Date [id number] Blood 09/05/2024 1:57 PM EST Result [facility] Grisel Meraz MD POINT OF CARE TEST ENTER/EDIT ORDERABLES Final Result * (ABNORMAL) MRSA Nasal Screen (09/05/2024 1:45 PM EST) MRSA Nasal PCR NEGATIVE Negative [facility] SA Nasal PCR POSITIVE(A) Negative [facility] MRSA Interpretation SEE NOTE [facility] Comment:MRSA target DNA not detected; SA target DNA detected.A MRSA NEGATIVE, SA POSITIVE test result does not precludeMRSA nasal colonization. Nares Nasal structure / Unknown 09/05/2024 1:45 PM EST 09/06/2024 1:44 PM EST Grisel Meraz MD LAB MICROBIOLOGY - GENERAL OR DERABLES Final Result Performing Organization Address [facility] Co de Phone Number [facility] [address] [place] [address] [phone] * BI Mammogram Screening Bilateral (11/16/2023) Anatomical Region Laterality Modality Breast Bilateral Mammography Grisel Meraz MD IMG BI PROCEDURES Final Resul t * Albumin, Random Urine W/Creatinine (09/06/2023 11:30 AM EST) Creatinine, Urine 63.27 mg/dL [facility] Microalbumin Urine 8.0 mg/L [facility] Microalbum Creatinine Ratio Ur 12.6 <30 ug/mg cr [facility] Comment:Albumin/Creatinine R atio Reference Ranges: Normal: < 30 ug/mg creatinine Microalbuminuria: 30 - 300 ug/mg creatinineClinical Albuminuria: > 300 ug/mg creatinine 09/06/2023 11:3 0 AM EST 09/06/2023 1:26 PM EST us Generic External Data Provider LAB URINE ORDERAB LES Final Result Performing Organization Address [facility]/ZIP Co de Phone Number [facility] [address] [place] [address] [phone] * (ABNORMAL) Lipid Panel, Standard (09/06/2023 11:30 AM EST) Triglycerides 220(H) <150 mg/dL [facility] Comment:Desirable Triglyceri de: less than 150 mg/dLBorderline High Triglyceride 150-199 mg/dLHigh Triglyceride: 200-499 mg/dLVery High Triglyceride: greater than or equal to 5OO mg/dL Cholesterol 211(H) <200 mg/dL [facility] Comment:Desirable Cholestero l: less than 200 mg/dLBorderline High Cholesterol: 200-239 mg/dLHigh Cholesterol: greater than 239 mg/dL LDL Cholesterol Calculated 110(H) <100 mg/dL [facility] Comment:Desirable LDL: less than 100 mg/dLNear Optimal/Above Optimal LDL: 110- 129 mg/dLBorderline High LDL: 130-159 mg/dLHigh LDL: 160-189 mg/dLVery High LDL: greater than or equal to 190 mg/dL HDL Cholesterol 57 >40 mg/dL [facility] Comment:Desirable HDL: great er than 40 mg/dL Note: This HDL assay may give artificially low results in patients with liver disease. 09/06/2023 11:3 0 AM EST 09/06/2023 11:31 AM EST us Generic External Data Provider LAB BLOOD ORDERAB LES Final Result [facility] [address] [place] [phone] * HEPATITIS C AB W/REFL TO HCV RNA, QN, PCR (12/03/2021 12:00 AM EDT) HEPATITIS C ANTIBODY NON-REACT MICHAEL NON-REACT MICHAEL [facility] INDEX 0.01 <1.00 [facility] Comment: ?? HCV antibody was non-reactive. There is no laboratory ?? evidence of HCV infection. ?? In most cases, no further action is required. However, if recent HCV exposure is suspected, a test for HCV RNA (test code 88419) is suggested. ?? For additional information please refer to http://education.Caremerge/faq/EUC72p2 (This link is being provided for informational/ educational purposes only.) ?? 12/03/2021 Grisel Meraz MD HISTORICAL/NON ORDERABLE LABS Final Result Performing Organization Address [facility] Co de Phone Number [facility] [address] * HIV 1/2 ANTIGEN/ANTIBODY,FOURTH GENERATION W/RFL (12/03/2021 12:00 AM EDT) HIV-1/2 ANTIGEN AND ANTIBODIES, 4TH GENERATION W/ REFLEX NON-REACT MICHAEL NON-REACT MICHAEL [facility] Comment: HIV-1 antigen and HIV-1/HIV-2 [...] ? For additional information please refer to http://education.Caremerge/faq/ZIA935 (This link is being provided for informational/ educational purposes only.) ? The performance of this assay has not been clinically validated in patients less than 2 years old. ?? 12/03/2021 Grisel Meraz MD LAB BLOOD ORDERABLES Final Re sult Performing Organization Address [facility] de Phone Number [facility] [address] [place] [address], * HPV E6/E7 RFLX SONIA 16 18/45 (04/18/2019 11:40 AM EDT) HPV 16 RNA Test not performed [facility] HPV 18/45 RNA Test not performed [facility] HPV mRNA E6/E7 Not Detected NOT DETECTED [facility] Comment: This test was performed using the APTIMA(R) HPV Assay ([employer] This assay detects E6/E7 viral messenger RNA (mRNA) from 14 high-risk HPV types (16,18,31,33,35,39,45,51, 52,56,58,59,66,68). For additional information please refer to: http://education.Caremerge/faq/ZAK552p2 (This link is being provided for informational/ educational purposes only.) The analytical performance characteristics of this assay have been determined by [employer] [place], [place]. The modifications have not been cleared or approved by the FDA. This assay has been validated pursuant to the CLIA regulations and is used for clinical purposes. Please note: ??Effective 05/16/2016, HPV testing will be performed using [employer]'s APTIMA test which targets mRNA. Detecting mRNA instead of DNA, as in older methods, offers significant improvements in specificity. ADDITIONAL TESTING Not indicated () [facility] Comment: Test Performed by [employer], [employer] [place], [address] [place] [address] Jorje Hendrickson M.D., Ph.D., Director of Laboratories , CLIA [id number] 04/18/2019 11:4 0 AM EDT Grisel Meraz MD HISTORICAL/NON ORDERABLE LABS Final Result [facility] [address] * Colonoscopy (11/22/2016) Colonoscopy Normal Normal Narrative Vianey Ross - 11/22/2016 Recommended 5 year follow up Historical Provider HEALTH MAINTENANCE Final Result from Last 3 Months or Most Recently Relevant to Health Maintenance Insurance [employer] [place] AD[place] Advance Directives Documents on File Type Date Recorded Patient Biomedical Engineering Internship Expl anation Advance Directives and Livin g Will 11/09/2023 3:59 PM HCP Care Teams Back Padder Relationship Specialty Start Date End Date Grisel Meraz MD [address] [place] [address] PCP - General Family Medicine 03/06/19
--- OUTSIDE RECORDS SUMMARY | 2024-11-19 18:02 | XMS_ITS | Encounter Summary ---
Author Organization [employer] Address [address] [place] [address] Care Team Providers Care [facility] Director Name Role Phone Grisel Meraz MD Primary Care Provider [phone] Reason for Visit * Reason Comments Med Refill Encounter Details Date Type Department Care Team ([facility] Contact Info) Description 09/14/2022 Refill [facility] [address] [place] [address] Sadie Wayne MD [address] [place] [address] Social History Tobacco Use Types Packs/Day Years [...] Department Care Team (Late Contact Info) Description 12/04/2024 11:30 AM EDT Office Visit [facility] [address] [place] [address] Grisel Meraz MD [address] [place] [address] 12/25/2024 3:15 PM EDT Clinical Support [facility] [address] [place] [address] Zoe Patrick RN [address] [place] [address] 01/02/2025 11:30 AM EDT Office Visit [facility] [address] [place] [address] Grisel Meraz MD [address] [place] [address] 01/09/2025 3:00 PM EDT Office Visit [facility] [address] [place] [address] Antonella Mccord, OD [address] [place] [address] documented as of this encounter Visit Diagnoses Not on filedocumented in this encounter Care Teams Senior [facility] Director Relationship Specialty Start Date End Date Grisel Meraz MD [address] [place] [address] PCP - General Family Medicine 03/06/19 documented as of this encounter
--- OUTSIDE RECORDS SUMMARY | 2024-11-19 18:02 | XMS_ITS | Encounter Summary ---
Author Organization [employer] Address [address] [facility] 7 [place] [address] Care Team Providers Care Inspector Purchased Parts Name Role Phone Grisel Meraz MD Primary Care Provider [phone] Reason for Visit * Reason Comments Med Refill Encounter Details Date Type Department Care Team ([facility] Contact Info) Description 10/31/2024 Refill [facility] MED & PEDS [address] [place] [address] Grisel Meraz MD [address] [place] [address] B-cell lymphoma of intra-abdominal lymph nodes, unspecified B-cell lymphoma type (CMS/HCC) Social History Tobacco Use Types Packs/Day Years [...] Telephone Encounter - Zoe Patrick RN - 11/06/2024 8:15 AM EST Message from PCP on 11/04/24: Nic Enriquez, this patient needs to start COT with us, because heme onc will not continue seeing her all the time for her lymphoma and they want us to continue giving her the tramadol. Precious sent me a script recently but I didn't send it yet because they had just refille dit for her. Can you start seeing her please? Thanks initial appt today. documented in this encounter Plan of Treatment Upcoming Encounters Date Type Department Care Team (Late st Contact Info) Description 12/04/2024 11:30 AM EDT Office Visit [facility] MED & PEDS [address] [place] [address] Grisel Meraz MD [address] [place] [address] 12/25/2024 3:15 PM EDT Clinical Support [facility] MED & PEDS [address] [place] [address] Zoe Patrick RN [address] [place] [address] 01/02/2025 11:30 AM EDT Office Visit [facility] MED & PEDS [address] [place] [address] Grisel Meraz MD [address] [place] [address] 01/09/2025 3:00 PM EDT Office Visit [facility] OPTOMETRY [address] [place], [place] [id number] Flex, Antonella, OD [address] [place] [address] documented as of this encounter Visit Diagnoses Diagnosis B-cell lymphoma of intra-abdominal lymph nodes, unspecified B-cell lymphoma type (CMS/HCC) documented in this encounter Additional Health Concerns Assessment Noted Time PHQ-9 Depression Total Score: 21 023 11:24 AM EST documented as of this encounter Care Teams Inspector Purchased Parts Relationship Specialty Start Date End Date Grisel Meraz MD [address] [place] [address] PCP - General Family Medicine 03/06/19 documented as of this encounter
--- OUTSIDE RECORDS SUMMARY | 2024-11-19 18:02 | XMS_ITS | Clinical Summary ---
Author Organization [facility] Address [address] [place] [address] Phone Care Team Providers Care Instrument Assembler Name Role Phone Grisel Meraz MD Primary Care Provider [phone] Allergies Active Allergy Reactions Criticality Noted Date [...] SUBCUTANEOUSLY FOUR TIMES DAILY 09/25/19 21 Active lidocaine-pril ocaine (EMLA) 2.5-2.5 % cream Apply topically as needed. 11/22/19 23 Active lisinopriL (PRINIVIL,ZEST RIL) 2.5 mg tablet Take 1 tablet (2.5 [...] (one) time each day. 09/14/19 23 Active senna-docusate (PERICOLACE) 8.6-50 mg per tablet Take 1 tablet by mouth daily. 12/01/19 23 Active simethicone (MYLICON) 80 mg chewable tablet TOME ERENDIRA TABLETA POR V A ORAL CUATRO VECES AL D A CUANDO SEA NECESARIO FOR GAS PAIN/BLOATING 09/16/19 23 Active ondansetron (ZOFRAN) 8 mg tablet Take 1 tablet (8 mg total) by mouth every 12 hours as needed. 10/27/19 23 Active budesonide-for moteroL (Symbicort) 160-4.5 mcg/actuation inhaler 09/14/19 Active topiramate (TOPAMAX) 25 mg tablet Take 1 tablet (25 mg total) by mouth 2 (two) times a day. 10/26/19 16 Active traZODone (DESYREL) 50 mg tablet 09/14/19 23 Active venlafaxine XR (EFFEXOR-XR) 150 mg 24 hr capsule Take 1 capsule (150 mg total) by mouth every morning. 09/14/19 23 Active traMADoL (ULTRAM) 50 mg tablet Take 1 tablet (50 mg total) by mouth every 6 (six) hours if needed for severe pain. for pain Max Daily Amount: 200 mg 64 tablet 2 08/15/20 24 Active miconazole (MICATIN) 2 % cream Apply topically 2 (two) times a day. 28.35 g 09/26/19 25 025 Active Problems Problem Noted Date Diagnosed Date Non-Hodgkin's lymphoma 09/29/2022 Encounters Date Type Department Care Team Description 09/26/2024 3:17 AM EST - 09/26/2024 4:34 AM EST Emergency [facility] Emergency [address] [place] [address] Yeast infection (Primary Dx); Hyperglycemia Discharge Disposition: Home or Self Care from [...] 36.5 ??C (97.7 ??F) 09/26/2024 2:[address] Respiratory Rate 17 09/26/2024 2:38 AM EST [...] Description 02/24/2025 3:30 PM EDT Office Visit [facility] Hematology Oncology [address] [place] [address] Nirmal Cooper MD [address] [place] [address] Health Maintenance Due Date Last Done Comments [...] AND DIFFERENTIAL STAT 09/25/2024 7:30 PM EST LIPID PANEL Routine 09/06/2023 HEPATITIS C SCREENING [...] Signed Date: 09/26/2024 08:07 ET Workstation ID: [id number] Transcribed By: Self Edit Transcribed Date: 09/26/2024 [...] Signed Date: 09/26/2024 08:07 ET Workstation ID: [id number] Transcribed By: Self Edit Transcribed Date: 09/26/2024 08:06 ET Yun GALLAGHER IMG XR PROCEDURES Final Result * (ABNORMAL) POCT Glucose, blood (09/26/2024 2:43 AM EST) Glucose POCT 232(H) 70 - 100 mg/dL 09/26/2024 2:44 AM EST [facility] Blood Capillary blood specimen / Unknown 09/26/2024 2:43 AM EST 09/26/2024 2:45 AM EST Generic Provider Poct LAB POINT OF CARE TEST DOCKED DEVICE UNSOLICITED RESULTS Final Result [facility] [address] [place] [address], [place] [phone] * (ABNORMAL) Urinalysis with reflex microscopic (09/25/2024 10:50 PM EST) Specific [place] Urine 1.024 1.003 - 1.030 LAB URINALYSIS - AUTOMATED METHOD 09/25/2024 11:19 PM [facility] pH, Urine 6.0 5.0 - 8.0 pH LAB URINALYSIS - AUTOMATED METHOD 09/25/2024 11:19 PM [facility] Leukocytes, Urine Negative Negative LAB URINALYSIS - AUTOMATED METHOD 09/25/2024 11:19 PM [facility] Nitrite, Urine Negative Negative LAB URINALYSIS - AUTOMATED METHOD 09/25/2024 11:19 PM [facility] Protein, Urine Negative <=Trace mg/dL LAB URINALYSIS - AUTOMATED METHOD 09/25/2024 11:19 PM [facility] Glucose, Urine >=1000(A) Negative mg/dL LAB URINALYSIS - AUTOMATED METHOD 09/25/2024 11:19 PM [facility] Ketones, Urine Negative Negative mg/dL LAB URINALYSIS - AUTOMATED METHOD 09/25/2024 11:19 PM [facility] Urobilinogen , Urine 1.0 0.2 - 1.0 mg/dL LAB URINALYSIS - AUTOMATED METHOD 09/25/2024 11:19 PM [facility] Bilirubin, Urine Negative Negative LAB URINALYSIS - AUTOMATED METHOD 09/25/2024 11:19 PM [facility] Blood, Urine Negative Negative LAB URINALYSIS - AUTOMATED METHOD 09/25/2024 11:19 PM [facility] Urine Urine specimen obtained by clean catch procedure / Unknown Non-blood Collection / Unknown 09/25/2024 10:50 PM EST 09/25/2024 11:13 PM EST Savage Frank DO LAB URINE ORDERABLES Final Resu lt [facility] [address] [place] [address], [place] [phone] * [place] urine culture tube (09/25/2024 10:50 PM EST) Pathologist [facility] Extra Tube Hold for add-ons. 09/26/2024 1:02 AM EST [facility] Comment:Auto resulted. Urine Urine specimen obtained by clean catch procedure / Unknown 09/25/2024 10:50 PM EST 09/25/2024 11:14 PM EST Audra GALLAGHER LAB URINE ORDERABLES Final Re sult Performing Organization Address [facility]/ZIP Co de Phone Number [facility] [address] [place] [address], [place] [phone] * (ABNORMAL) Venous blood gas (09/25/2024 10:37 PM EST) pH, Adolph 7.41 7.32 - 7.42 pH 09/25/2024 10:45 PM [facility] pCO2, Adolph 48 41 - 51 mmHg 09/25/2024 10:45 PM [facility] pO2, Adolph 21(L) 25 - 40 mmHg 09/25/2024 10:45 PM [facility] HCO3, Venous 26.8(H) 22.0 - 26.0 mmol/L 09/25/2024 10:45 PM [facility] O2 Sat, Adolph 44.7 % 09/25/2024 10:45 PM [facility] Base Excess, Adolph 4.6(H) -2.0 - 2.0 mmol/L 09/25/2024 10:45 PM [facility] Blood Venous blood specimen / Unknown Venipuncture / Unknown 09/25/2024 10:37 PM EST 09/25/2024 10:41 PM EST Savage Frank LAB BLOOD ORDERABLES Final Resu lt Performing Organization Address City/[facility]/ZIP Co de Phone Number [facility] [address] [place] [address], [place] [phone] * Beta hydroxybutyrate (09/25/2024 7:30 PM EST) [facility] Beta-Hydroxybu tyrate 1.4 0.2 - 2.8 mg/dL LAB CHEMISTRY METHOD 09/25/2024 8:11 PM EST [facility] Blood Venous blood specimen / Unknown Venipuncture / Unknown 09/25/2024 7:30 PM EST 09/25/2024 7:37 PM EST Savage Frank LAB BLOOD ORDERABLES Final Resu lt Performing Organization Address [facility]/ZIP Co de Phone Number [facility] [address] [place] [address], [place] [phone] * CBC auto differential (09/25/2024 7:30 PM EST) [facility] WBC 6.6 4.8 - 10.8 K/mcL LAB HEMETOLOGY METHOD 09/25/2024 7:52 PM [facility] RBC 4.80 3.80 - 4.80 M/mcL LAB HEMETOLOGY METHOD 09/25/2024 7:52 PM EST [facility] Hemoglobin 13.9 11.5 - 16.0 g/dL LAB HEMETOLOGY METHOD 09/25/2024 7:52 PM [facility] Hematocrit 41.2 35.0 - 47.0 % LAB HEMETOLOGY METHOD 09/25/2024 7:52 PM [facility] MCV 85.5 79.0 - 98.0 FL LAB HEMETOLOGY METHOD 09/25/2024 7:52 PM [facility] MCH 28.8 27.0 - 32.0 pcg LAB HEMETOLOGY METHOD 09/25/2024 7:52 PM [facility] MCHC 33.7 32.0 - 37.0 g/dL LAB HEMETOLOGY METHOD 09/25/2024 7:52 PM [facility] RDW 12.2 11.0 - 15.0 % LAB HEMETOLOGY METHOD 09/25/2024 7:52 PM [facility] Platelets 235 130 - 400 K/mcL LAB HEMETOLOGY METHOD 09/25/2024 7:52 PM [facility] MPV 10.4 7.0 - 11.0 FL LAB HEMETOLOGY METHOD 09/25/2024 7:52 PM [facility] NRBC 0.0 <1.0 % LAB HEMETOLOGY METHOD 09/25/2024 7:52 PM [facility] NRBC Absolute 0.00 <0.10 K/mcL LAB HEMETOLOGY METHOD 09/25/2024 7:52 PM [facility] Neutrophils Relative 52.3 % LAB HEMETOLOGY METHOD 09/25/2024 7:52 PM [facility] Lymphocytes Relative 34.3 % LAB HEMETOLOGY METHOD 09/25/2024 7:52 PM [facility] Monocytes Relative 9.3 % LAB HEMETOLOGY METHOD 09/25/2024 7:52 PM [facility] Eosinophils Relative 2.4 % LAB HEMETOLOGY METHOD 09/25/2024 7:52 PM [facility] Basophils Relative 1.4 % LAB HEMETOLOGY METHOD 09/25/2024 7:52 PM [facility] Immature Granulocytes Relative 0.3 % LAB HEMETOLOGY METHOD 09/25/2024 7:52 PM [facility] Neutrophils Absolute 3.43 1.50 - 7.00 K/mcL LAB HEMETOLOGY METHOD 09/25/2024 7:52 PM EST [facility] Lymphocytes Absolute 2.25 1.00 - 5.00 K/mcL LAB HEMETOLOGY METHOD 09/25/2024 7:52 PM EST [facility] Monocytes Absolute 0.61 0.20 - 1.00 K/mcL LAB HEMETOLOGY METHOD 09/25/2024 7:52 PM EST [facility] Eosinophils Absolute 0.16 0.00 - 0.50 K/[facility] LAB HEMETOLOGY METHOD 09/25/2024 7:52 PM EST [facility] Basophils Absolute 0.09 0.00 - 0.20 K/[facility] LAB HEMETOLOGY METHOD 09/25/2024 7:52 PM EST [facility] Immature Granulocytes Absolute 0.02 0.00 - 0.03 K/[facility] LAB HEMETOLOGY METHOD 09/25/2024 7:52 PM EST [facility] Blood Venous blood specimen / Unknown Venipuncture / Unknown 09/25/2024 7:30 PM EST 09/25/2024 7:37 PM EST Savage Frank DO LAB BLOOD ORDERABLES Final Resu lt Performing Organization Address [facility]/ZIP Co de Phone Number [facility] [address] [place] [address], * Osmolality (09/25/2024 7:30 PM EST) Osmolality Aleksey 298 280 - 300 mOsm/kg LAB CHEMISTRY METHOD 09/25/2024 8:34 PM EST [facility] Blood Venous blood specimen / Unknown Venipuncture / Unknown 09/25/2024 7:30 PM EST 09/25/2024 7:37 PM EST Savage Frank DO LAB BLOOD ORDERABLES Final Resu lt [facility] [address] [place] [address], [place] [phone] * Magnesium (09/25/2024 7:30 PM EST) [facility] Magnesium 2.0 1.9 - 2.6 mg/dL LAB CHEMISTRY METHOD 09/25/2024 8:11 PM EST [facility] Blood Venous blood specimen / Unknown Venipuncture / Unknown 09/25/2024 7:30 PM EST 09/25/2024 7:37 PM EST us Savage Frank DO LAB BLOOD ORDERABLES Final Resu lt Performing Organization Address [facility]/ZIP Co de Phone Number [facility] [address] [place] [address], [place] [phone] * Lipase (09/25/2024 7:30 PM EST) [facility] Lipase 39 13 - 75 unit/L LAB CHEMISTRY METHOD 09/25/2024 8:11 PM EST [facility] Blood Venous blood specimen / Unknown Venipuncture / Unknown 09/25/2024 7:30 PM EST 09/25/2024 7:37 PM EST Savage Frank DO LAB BLOOD ORDERABLES Final Resu lt Performing Organization Address [facility]/ZIP Co de Phone Number [facility] [address] [place] [address], [place] [phone] * (ABNORMAL) Comprehensive metabolic panel (09/25/2024 7:30 PM EST) [facility] Sodium 131(L) 133 - 145 mmol/L LAB CHEMISTRY METHOD 09/25/2024 8:22 PM EST [facility] Potassium 4.1 3.5 - 5.5 mmol/L LAB CHEMISTRY METHOD 09/25/2024 8:22 PM EST [facility] Chloride 100 96 - 110 mmol/L LAB CHEMISTRY METHOD 09/25/2024 8:22 PM [facility] CO2 28 21 - 32 mmol/L LAB CHEMISTRY METHOD 09/25/2024 8:22 PM [facility] Anion Gap 3 3 - 11 LAB CHEMISTRY METHOD 09/25/2024 8:22 PM [facility] Glucose 310(H) 70 - 100 mg/dL LAB CHEMISTRY METHOD 09/25/2024 8:22 PM [facility] BUN 11 5 - 25 mg/dL LAB CHEMISTRY METHOD 09/25/2024 8:22 PM [facility] Creatinine 0.76 0.50 - 1.10 mg/dL LAB CHEMISTRY METHOD 09/25/2024 8:22 PM [facility] eGFR 94 >=60 mL/min/1. 73m2 LAB CHEMISTRY METHOD 09/25/2024 8:22 PM [facility] Comment:Calculation based on the??Chronic Kidney Disease Epidemiology Collaboration (CKD-EPI) equation refit??without adjustment for race. BUN/Creatinine Ratio 14.5 LAB CHEMISTRY METHOD 09/25/2024 8:22 PM [facility] Calcium 9.3 8.5 - 10.5 mg/dL LAB CHEMISTRY METHOD 09/25/2024 8:22 PM [facility] AST (SGOT) 33 10 - 42 unit/L LAB CHEMISTRY METHOD 09/25/2024 8:22 PM [facility] ALT (SGPT) 46 10 - 60 unit/L LAB CHEMISTRY METHOD 09/25/2024 8:22 PM [facility] Alkaline Phosphatase 103 42 - 121 unit/L LAB CHEMISTRY METHOD 09/25/2024 8:22 PM [facility] Total Protein 7.9 6.0 - 8.0 g/dL LAB CHEMISTRY METHOD 09/25/2024 8:22 PM [facility] Albumin 4.1 3.2 - 5.0 g/dL LAB CHEMISTRY METHOD 09/25/2024 8:22 PM EST [facility] Total Bilirubin 0.6 0.0 - 1.4 mg/dL LAB CHEMISTRY METHOD 09/25/2024 8:22 PM EST [facility] Blood Venous blood specimen / Unknown Venipuncture / Unknown 09/25/2024 7:30 PM EST 09/25/2024 7:37 PM EST Savage Frank DO LAB BLOOD ORDERABLES Final Resu lt [facility] ([facility]) [facility] [address] [place] [address], * Lipid panel (09/06/2023) Pathologist [facility] LDL/HDL Ratio 0 Triglycerides 0 mg/dL Cholesterol 0 mg/dL HDL 0 mg/dL LDL Cholesterol 0 mg/dL Blood Venous blood specimen / Unknown Result [facility] Historical Provider LAB BLOOD ORDERABLES Prema l Result * Hepatitis C Screening (11/21/2022) Pathologist [facility] Hepatitis C Screening Abstracted Result [facility] Historical Provider HEALTH MAINTENANCE Final Result * HIV Screening (12/03/2021) Pathologist [facility] HIV Screening Abstracted Result [facility] Historical Provider HEALTH MAINTENANCE Final Result * Hemoglobin A1c (12/03/2021) Pathologist [facility] Hemoglobin A1C 0.0 % Blood Venous blood specimen / Unknown Result [facility] Historical Provider LAB BLOOD ORDERABLES Prema l Result from Last 3 Months or Most Recently Relevant to Health Maintenance Insurance [employer] MEDICAID - [place] Care Teams Instrument Assembler Relationship Specialty Start Date End Date Grisel Meraz MD [address] [place] [address] PCP - General 09/16/22
--- OUTSIDE RECORDS SUMMARY | 2024-11-19 18:02 | XMS_ITS | Encounter Summary ---
Author Organization [employer] Address [address] [facility] 7 [place] [address] Care Team Providers Care Data Center Manager Name Role Phone Grisel Meraz MD Primary Care Provider [phone] Reason for Visit * Reason Onset Date Comments Nurse Triage 10/24/2024 Encounter Details Date Type Department Care Team ([facility] Contact Info) Description 10/24/2024 Telephone [facility] CHC MED & PEDS [address] [place] [address] Grisel Meraz MD [address] [place] [address] Nurse Triage Social History Tobacco Use Types Packs/Day Years [...] encounter Miscellaneous Notes * Telephone Encounter - Ana Luisa Trevino RN - 10/24/2024 4:29 PM EST No reproduction artist needed as this editorial writer speaks Yemeni. Call returned to [facility] Mauro to triage below. Reports having bilateral lower leg edema x 2 weeks. Reports swelling does not improve with elevation. No redness to skin. No pain. Reports Endo provider noted pt had face swelling at last visit. No SOB, CP or wheezing. Per pt BP WNL during Endo visit. Pt advised of disposition, no appts in [facility] and [facility] not yet open. Reviewed [facility] operating hours and that wait times vary. Reviewed home care advise, ER precautions and reasons to call back. Protocol Used: Leg Swelling and Edema (Adult) Protocol-Based Disposition: See in Office or Video Visit Today Override (Final) Disposition: See in Office or Video Visit Today or Tomorrow Override Reason: End of day or office closed Positive Triage Question: * Swelling of face, arm or hands (Exception: Slight puffiness of fingers during hot weather.) * All higher-acuity triage questions were negative Care Advice Discussed: * Reasons To Call Back - Calf pain occurs and becomes constant - You become worse * Telephone Encounter - Asya Waite - 10/24/2024 4:15 PM EST Symptom: Leg Swelling - Not From Injury Outcome: Schedule an appointment to be seen within 24 hours Reason: Caller denied all higher acuity questions The caller accepted this outcome. Contact pt at [phone] (cameroonian) documented in this encounter Plan of Treatment Upcoming Encounters Date Type Department Care Team (Late st Contact Info) Description 12/04/2024 11:30 AM EDT Office Visit [facility] MED & PEDS [address] [place] [address] Grisel Meraz MD [address] [place] [address] 12/25/2024 3:15 PM EDT Clinical Support [facility] MED & PEDS [address] [place] [address] Zoe Patrick, TREVER [address] [place] [address] 01/02/2025 11:30 AM EDT Office Visit [facility] MED & PEDS [address] [place] [address] Grisel Meraz MD [address] [place] [address] 01/09/2025 3:00 PM EDT Office Visit [facility] OPTOMETRY [address] [place] [address] Antonella Mccord, OD [address] [place] [address] documented as of this encounter Visit Diagnoses Not on filedocumented in this encounter Additional Health Concerns Assessment Noted Time PHQ-9 Depression Total Score: 21 023 11:24 AM EST documented as of this encounter Care Teams Data Center Manager Relationship Specialty Start Date End Date Grisel Meraz MD [address] [place] [address] PCP - General Family Medicine 03/06/19 documented as of this encounter
--- OUTSIDE RECORDS SUMMARY | 2024-11-19 18:02 | XMS_ITS | Encounter Summary ---
Author Organization [employer] Address [address] [place] [address] Care Team Providers Care Cio Name Role Phone Grisel Meraz MD Primary Care Provider [phone] Reason for Referral * Imaging (Routine) - Authorized Specialty Diagnoses / Procedures Referred By Contac t Referred To Contact Radiology Diagnoses Dysphagia, unspecified type Procedures FL Upper GI w/air w/Barium Swallow Grisel Meraz MD [address] [place] [address] Phone: tel: fax: [facility] Referral ID Status Reason Start Date Expiration Date Visits Requested Visits Authorized [id number] Authorized Perform Procedure 10/31/2024 10/31/2025 1 1 Encounter Details Date Type Department Care Team (Late st Contact Info) Description 10/31/2024 2:00 PM EST Office Visit [facility] MED & PEDS [address] [place], [place] [phone] Grisel Meraz MD [address], [place] [phone] Type 2 diabetes mellitus without complication, with long-term current use of insulin ([facility]/HCC) (Primary Dx); Dysphagia, unspecified type; Boil, arm Social History Tobacco Use Types Packs/Day Years Used Date Smoking Tobacco: Never Passive Smoke Exposure: Never Smokeless Tobacco: Never Depression Answer Date Recorded Patient Health Questionnaire-9 Score 21 10/26/2022 Housing Stability Answer Date Recorded What is your housing situation today? I have ruiz sing 06/19/[address] you li [...] Mass Index 27.79 10/31/2024 2:21 PM EST documented in this encounter Progress Notes * Grisel Meraz MD - 10/31/2024 2:00 PM EST Images from the original note were not included. Subjective Patient ID: Za Mauro is a 54 y.o. adult who presents for R upper arm rash. Za is a 54 y/o female diabetic patient of ours here for 1 day of R upper inner arm mild redness and small lump. Patient placed her CGM device on that arm this same week and due to discomfort removed it and noticed lump.No fevers or chills.No N/V.Seeing endocrine for uncontrolled DM. On insulin pump now etc.. Her lymphoma is in remission and sees hermilo onc at [facility] when scheduled.Currently on tramadol tid prn pain by heme onc who now wants her to get it from us as she doesn't need to be seen as often any longer.C/O recent dysphagia to solid foods only.no associated symptoms of weight loss,SOB,cough,hemoptysis,etc... Review of Systems Constitutional: Negative for activity change, chills, fever and unexpected weight change. HENT: Positive for trouble swallowing. Respiratory: Negative for cough, shortness of breath and wheezing. Cardiovascular: Negative for chest pain, palpitations and leg swelling. Gastrointestinal: Negative for abdominal pain and blood in stool. Endocrine: Negative for polydipsia and polyuria. Genitourinary: Negative for decreased urine volume, difficulty urinating, dysuria and hematuria. Musculoskeletal: Negative for arthralgias and gait problem. Skin: Positive for rash. Negative for color change. Neurological: Negative for dizziness and headaches. Hematological: Negative for adenopathy. Psychiatric/Behavioral: Negative for dysphoric mood, hallucinations, sleep disturbance and suicidalideas. The patient is not nervous/anxious. Objective BP 126/83 (BP Location: Left arm, Patient Position: Sitting, BP Cuff Size: Adult) Pulse95 Temp 97.8 ??F (36.6 ??C) (Oral) Resp 20 Ht 5' 5 (1.651 m) Wt 167 lb (75.8 kg) SpO2 97% BMI 27.79 kg/m?? Physical Exam Constitutional: General: Za is not in acute distress. Appearance: Normal appearance. Za is not ill-appearing. HENT: Head: Normocephalic. Right Ear: Tympanic membrane and ear canal normal. Left Ear: Tympanic membrane and ear canal normal. Nose: Nose normal. Mouth/Throat: Mouth: Mucous membranes are moist. Pharynx: No oropharyngeal exudate or posterior oropharyngeal erythema. Eyes: Extraocular Movements: Extraocular movements intact. Conjunctiva/sclera: Conjunctivae normal. Pupils: Pupils are equal, round, and reactive to light. Cardiovascular: Rate and Rhythm: Normal rate and regular rhythm. Pulses: Normal pulses. Heart sounds: Normal heart sounds. Pulmonary: Effort: Pulmonary effort is normal. No respiratory distress. Breath sounds: Normal breath sounds. Abdominal: Palpations: Abdomen is soft. Musculoskeletal: General: Normal range of motion. Cervical back: Normal range of motion. Right lower leg: No edema. Left lower leg: No edema. Skin: General: Skin is warm. Capillary Refill: Capillary refill takes less than 2 seconds. Comments: Right upper inner arm region 1 cm palpable lump,no significant warmth etc..positive mild redness, no tracking Neurological: General: No focal deficit present. Mental Status: Za is alert and oriented to person, place, and time. Psychiatric: Mood and Affect: Mood normal. Behavior: Behavior normal. Thought Content: Thought content normal. Judgment: Judgment normal. Assessment/Plan Diagnoses and all orders for this visit: Type 2 diabetes mellitus without complication, with long-term current use of insulin ([facility]) Comments: Uncontrolled. F/U with endocrinology as planned,on insulin pump. Orders: - POCT Glucose Dysphagia, unspecified type Comments: Patient complains of recent dysphagia to solids only. NO weight loss.Recieved radiation/chemo for lymphoma.An order for UGI barrium swallowing study done. Orders: - FL Upper GI w/air w/Barium Swallow; Future Boil, arm Comments: Apply warm compresses,has previous hx of MRSA skin infections,.Doxycycline started as well.RTC if not better. Other orders - doxycycline (Vibra-Tabs) 100 MG tablet; Take 1 tablet (100 mg) by mouth 2 times daily for 10 days. Take with a full glass of water and do not lie down for at least 30 minutes after. - mupirocin (Bactroban) 2 % ointment; Apply topically 3 times daily for 10 days. documented in this encounter Plan of Treatment Upcoming Encounters Date Type Department Care Team (Late st Contact Info) Description 12/04/2024 11:30 AM EDT Office Visit [facility] [address] [place] [address] Grisel Meraz MD [address] [place] [address] 12/25/2024 3:15 PM EDT Clinical Support [facility] [address] [place] [address] Zoe Patrick, TREVER [address] [place] [address] 01/02/2025 11:30 AM EDT Office Visit [facility] [address] [place] [address] Grisel Meraz MD [address] [place] [address] 01/09/2025 3:00 PM EDT Office Visit [facility] OPTOMETRY [address] [place] [address] FlexRickn, OD [address] [place] [address] Scheduled Orders Name Type Priority Associated Diagnoses Orde r Schedule FL Upper GI w/air w/Barium Swallow Imaging Routine Dysphagia, unspecified type Expected: 10/31/2024, Expires: 10/31/2025 documented as of this encounter Procedures Procedure Name Priority Date/Time Associated Diagnosis Comments POCT GLUCOSE Routine 10/31/2024 2:23 PM EST Type 2 diabetes mellitus without complication, with long-term current use of insulin ([facility]) documented in this encounter Results * POCT Glucose (10/31/2024 2:23 PM EST) [facility] Signature Glucose Blood, POC 89 60 - 200 mg/dL QC Media Lot # [id number] Lot# Expiration Date 325 Blood Capillary blood specimen / Unknown 10/31/2024 2:23 PM EST Grisel Meraz MD POINT OF CARE TEST ENTER/EDIT ORDERABLES Final Result documented in this encounter Visit Diagnoses Diagnosis Type 2 diabetes mellitus without complication, with long-term current use of insulin ([facility])- Primary Dysphagia, unspecified type Boil, arm Carbuncle and furuncle of upper arm and forearm documented in this encounter Additional Health Concerns Assessment Noted Time PHQ-9 Depression Total Score: 21 023 11:24 AM EST documented as of this encounter Care Teams Cio Relationship Specialty Start Date End Date Grisel Meraz MD [address] [place] [address] PCP - General Family Medicine 03/06/19 documented as of this encounter
--- OUTSIDE RECORDS SUMMARY | 2024-11-19 18:02 | XMS_ITS | Encounter Summary ---
Author Organization [employer] Address [address] [place] [address] Care Team Providers Care Test Operator Name Role Phone Grisel Meraz MD Primary Care Provider [phone] Reason for Visit * Reason Comments Med Refill Encounter Details Date Type Department Care Team ([facility] Contact Info) Description 10/21/2024 Refill [facility] MED & PEDS [address] [place] [address] Grisel Meraz MD [address] [place] [address] Social History Tobacco Use Types Packs/Day Years [...] Description 12/04/2024 11:30 AM EDT Office Visit [facility] MED & PEDS [address] [place] [address] Grisel Meraz MD [address] [place] [address] 12/25/2024 3:15 PM EDT Clinical Support [facility] MED & PEDS [address] [place] [address] Zoe Patrick, TREVER [address] [place] [address] 01/02/2025 11:30 AM EDT Office Visit [facility] MED & PEDS [address] [place] [address] Grisel Meraz MD [address] [place] [address] 01/09/2025 3:00 PM EDT Office Visit [facility] OPTOMETRY [address] [place] [address] Flex, Antonella, OD [address] [place] [address] documented as of this encounter Visit Diagnoses Not on filedocumented in this encounter Additional Health Concerns Assessment Noted Time PHQ-9 Depression Total Score: 21 023 11:24 AM EST documented as of this encounter Care Teams Test Operator Relationship Specialty Start Date End Date Grisel Meraz MD [address] [place] [address] PCP - General Family Medicine 03/06/19 documented as of this encounter
--- OUTSIDE RECORDS SUMMARY | 2024-11-19 18:02 | XMS_ITS | Encounter Summary ---
Author Organization [employer] Address [address] [facility] [facility] [address] [place] [address] Care Team Providers Care Mobile Equipment Servicer Name Role Phone Grisel Meraz MD Primary Care Provider [phone] Reason for Visit * Reason Onset Date Comments Record Request 04/05/2023 Encounter Details Date Type Department Care Team ([facility] Contact Info) Description 04/05/2023 Telephone [facility] MED & PEDS [address] [place] [address] Grisel Meraz MD [address] [place] [address] Record Request Social History Tobacco Use Types [...] 11:24 AM EDT TC from Michelle with [facility]. States had placed requests for physician Summary form , along with copies of last Physical , last office visit , and med list . documented in this encounter Plan of Treatment Upcoming Encounters Date Type Department Care Team (Late st Contact Info) Description 12/04/2024 11:30 AM EDT Office Visit [facility] MED [facility]ED[facility] [address] [place] [address] Grisel Meraz MD [address] [place] [address] 12/25/2024 3:15 PM EDT Clinical Support [facility] [address] [place] [address] Zoe Patrick RN [address] [place] [address] 01/02/2025 11:30 AM EDT Office Visit [facility]ED[facility] [address] [place] [address] Grisel Meraz MD [address] [place] [address] 01/09/2025 3:00 PM EDT Office Visit [facility] OPTOMETRY [address] [place] [address] FlexAntonella montgomery, OD [address] [place] [address] documented as of this encounter Visit Diagnoses Not on filedocumented in this encounter Additional Health Concerns Assessment Noted Time PHQ-9 Depression Total Score: 21 023 11:24 AM EST documented as of this encounter Care Teams Mobile Equipment Servicer Relationship Specialty Start Date End Date Grisel Meraz MD [address] [place] [address] PCP - General Family Medicine 03/06/19 documented as of this encounter
== END 2024-11-19 15:46 | disposition home or self-care (01) ==
LOC: HO.ENCR 15:05
PROVIDERS: PCP Pediatrics; Visit Provider Nurse Practitioner Adult Health
DX: E11.42 Type 2 diabetes mellitus with diabetic polyneuropathy (principal); R79.89 Other specified abnormal findings of blood chemistry
CPT/HCPCS: 95251; 99214; G2211

== ENCOUNTER → 2024-11-19 15:05 | Outpatient (BNVA) | payer MEDICARE, MEDICAID, SELFPAY | PROVIDERS: PCP Pediatrics; Visit Provider Nurse Practitioner Adult Health | DX: E11.65 Type 2 diabetes mellitus with hyperglycemia (principal); E11.42 Type 2 diabetes mellitus with diabetic polyneuropathy; R79.89 Other specified abnormal findings of blood chemistry; Z79.4 Long term (current) use of insulin; Z96.41 Presence of insulin pump (external) (internal) | CPT/HCPCS: 82947 ==

== ENCOUNTER 2024-11-22 11:30 | Outpatient (REF) | payer MEDICARE, MEDICAID, SELFPAY ==
[2024-11-22 13:42] LABS: Thyroid Stimulating Hormone 4.55 uIU/mL (0.32-4.0)
[2024-11-22 13:54] LABS: Alanine Aminotransferase 34 U/L (0-31); Anion Gap 10 (12-20); Aspartate Amino Transferase 32 U/L (5-31); Blood Urea Nitrogen 19 mg/dL (9-16); Calcium 9.4 mg/dL (8.4-10.2); Carbon Dioxide 26 mmol/L (22-29); Chloride 111 mmol/L (96-108); Cholesterol 159 mg/dL (<200); Estimated Glomerular Filt Rate > 60; HDL Cholesterol 54 mg/dL (>40); LDL Cholesterol Calculated 78 mg/dL (<100); Sodium 143 mmol/L (135-145); Triglycerides 137 mg/dL (<150)
[2024-11-22 14:05] LABS: Glucose Random 24 mg/dL (60-115)
[2024-11-22 14:14] LABS: Microalbum/Creatinine Ratio Ur 12.9 ug/mg cr (<30)
[2024-11-25 21:24] LABS: Thyroid Peroxidase Antibodies <1 IU/mL (<9)
== END 2024-11-22 11:31 | disposition home or self-care (01) ==
LOC: HO.LAB 11:30
PROVIDERS: PCP Pediatrics; Visit Provider Nurse Practitioner Adult Health
DX: E11.65 Type 2 diabetes mellitus with hyperglycemia (principal); Z79.4 Long term (current) use of insulin; R79.89 Other specified abnormal findings of blood chemistry
CPT/HCPCS: 36415; 80048; 80061; 82043; 82570; 82947; 84439; 84443; 84450; 84460; 86376; 99212

== ENCOUNTER 2024-11-22 14:56 | Outpatient (AMB) | payer MEDICARE, MEDICAID, SELFPAY ==
[2024-11-22 14:57] VITALS: BP 120/76; PULSE 98; O2SAT 98; BMI 28.2
--- NOTE | 2024-11-22 14:57 | A.OFFVIS_ITS ---
Vital Signs 11/22/24 14:57 Height 5 ft 5 in Weight 169 lb 12.095 oz BMI 28.2 BP 120/76 Blood Pressure Location Rt brachial Position Sitting Pulse 98 Pulse Source Pulse Oximeter Pulse Oximetry (%) 98 Oxygen Delivery Method Room Air Intake Visit Reasons: DM Intake Note: Patient presents today for a follow-up on Type 1 Diabetes Mellitus/iLet Insulin Pump: Patient had blood work done and had a critical low blood glucose of 24 mg/dL, Today. Last Diabetic eye exam was on: DUE Last Podiatry exam was on: Does not see a Radio Electronics Officer Most recent HbA1c: 12.1%, 10/09/2024 Random Glucose: 219 mg/dL, Today Senior Mechanical Design Engineer Required: Yes Senior Mechanical Design Engineer Language: Sales Assistant [employer] Media Services: Senior Mechanical Design Engineer Present Senior Mechanical Design Engineer Name: YUSUF Linares/NEO MCKEON Information Interpreted: non-clinical & clinical Accompanied by: Self / Same As Patient Allergies acetaminophen [From Percocet] Allergy (Severe, Verified 10/09/24 15:30) Anaphylaxis oxycodone [From Percocet] Allergy (Severe, Verified 10/09/24 15:30) Anaphylaxis Vicodin Allergy (Unknown, Uncoded 10/09/24 15:30) Anaphylaxis HPI Comments Details: 54-year-old female Type 2 diabetic diagnosed approximately 2017 who is now back on an ilet insulin pump after a several month hiatus due to having had site infections at both the pump insertion set and sensor site. This is an interim visit for Za. She was seen in clinic on 11/19 by myself and I had Kelly BELL in for consultation as well. Patient's glucose average was running in the 180s. She was not announcing any meals. After reviewing options of factory reset or starting to announce meals it was decided that the patient would only enter preprandial meal announce meant for her breakfast. This morning the patient went to the lab for blood work and while she was there felt weak and shaky. After her blood work she treated the low sugar. We were contacted by the lab in the afternoon with a blood sugar of 24. We contacted the patient but due to issues with language barriers and her not being able to access all of the features of the pump it was decided she would come in. At the time of the visit the patient advised us that she had it now it is to her breakfast meal at 22:00 the night before. I see no record of this on her pump download. Pump download does show a low at approximately 11:45. She is not announcing any meals as advised Glucose average 182.8 17.3 very high, 30.5 high, 50.5 in range, 1.5 low, 0.2 very low with a CV if 34%. She is having some lows in the late afternoon and late morning which have been mild. Total daily basal insulin 38.4 total daily dose 79.6. July 2024: She was found to have nasal colonization of staph which was not MRSA and she was advised to use a Hibiclens wash once weekly and instructed to use antibacterial soap. Rigid sterile technique with inserting sensor and pump was reviewed with the patient extensively. She was not able to purchased the Hibiclens but has been using antibacterial soap. She has had no further infection in the site looks clean. Current diabetes regime pioglitazone 30 mg Most recent A1c 10/09/2511.1%: 07/24/24 8.4% down from previous A1c 04/23/2024 11%. The A1c of 12.1% reflects off pump. Denies retinopathy. Last exam: she has been referred but missed appt to [facility] Dr. Urbina She has rescheduled with another provider Has neuropathy: Symptoms: + numbness, tingling and cramping in legs No Nephropathy:09/2023 microalbumin 8.0 10/29 eGFR>60 on low dose radha-1 Has HLD on statin 10/29 ldl 78 She complains of some shortness of breath intermittent but not at present. Non exertional. She denies chest pain. Denies symptoms of claudication. Has strong family hx of Type 2 DM Exercise - walks [facility] Medical History Cellulitis Right groin pain Arthritis Elevated LFTs Fibromyalgia Bunion, left foot Migraine Asthma Seasonal allergies Mood disorder Joint pain Hyperlipidemia LDL goal <100 Type 2 diabetes mellitus with polyneuropathy Type 2 diabetes mellitus with hyperglycemia Surgical History Hx of colonoscopy (~2019) Hx of cholecystectomy Hx of foot surgery History of bilateral carpal tunnel release Hx of cataract surgery Family History Father Hypertension Mother Diabetes Colon cancer Brother Liver cancer Social History Household Members: Other Household Members Other:: Sister Alcohol intake: current Alcohol intake frequency: does not drink Patient Tobacco Use Status: Never used Tobacco Physical Exam Vital Signs: Last Vital Signs Pulse 98 11/22/24 14:57 BP 120/76 11/22/24 14:57 Pulse Ox 98 11/22/24 14:57 Oxygen Delivery Method Room Air 11/22/24 14:57 BMI result Body Mass Index 28.2 Const Other: Absence of Cushingoid features. Absence of acromegalic features. Heart S1 S2, Reg R/R. Lungs clear. No M/R G. Skin exam reveals absence of vitiligo or acanthosis nigricans. No edema. Office Procedures Glucose Monitoring Details Details: see [facility] [id number] - Glucose monitoring, continuous-physician I&R Procedure code (CPT) selection complete Results Reviewed Results Reviewed: Laboratory Last Values Glucose (Clinic) 219 mg/dL (60-115) H 11/22/24 14:59 Assessment & Plan Assessment & Plan (1) Type 2 diabetes mellitus with hyperglycemia: Code(s): E11.65 - Type 2 diabetes mellitus with hyperglycemia Category: Medical Qualifiers: Diabetes mellitus snf insulin use: with moth exterminator use Qualified Code(s): E11.65 - Type 2 diabetes mellitus with hyperglycemia; Z79.4 - half-way (current) use of insulin Plan: Type 2 diabetic with neuropathy now back on an islet pump for several months. She had a low this morning in the lab of 24 for which she treated and recovered quickly. She was advised not to announce any meals and her settings were changed to increase her glucose targets. I have contacted islet to review her download as well. Dr. Garcia was notified Orders: Orders AMB Glucose Monitoring Today E11.65 - Type 2 diabetes mellitus with hyperglycemia, Z79.4 - half-way (current) use of insulin Patient Instructions: Take 15 carb carbohydrate grams to treat a low sugar (3-4 glucose tablets, half a glass of juice or 15 carbohydrate grams of soft candy such as gummie snacks). Recheck your sugar in 15 minutes and re-treat again with 15 carbohydrate grams if low or still with symptoms. Do not drive a car or operate machinery if you do not know what your blood sugar is, if it is low or in excess of 300. Coding Level of Care Code Est Pt Level 4 (07521) Complex EM visit Add On G2211 Diagnoses Type 2 diabetes mellitus with hyperglycemia, with long-term current use of insulin E11.65; Z79.4 Diabetes mellitus snf insulin use: with snf use CPT Codes Details - CPT: 65592 - Glucose monitoring, continuous-physician I&R ([id number]) Time Spent (min) 30 Comment Reviewing labs/provider notes, glucose sensor/pump reports, face to face, chart doc
[2024-11-22 15:04] LABS: Glucose, Whole Blood 219 mg/dL (60-115)
== END 2024-11-22 15:22 | disposition home or self-care (01) ==
LOC: HO.ENCR 14:56
PROVIDERS: PCP Pediatrics; Visit Provider Nurse Practitioner Adult Health
DX: E11.65 Type 2 diabetes mellitus with hyperglycemia (principal); Z79.4 Long term (current) use of insulin
CPT/HCPCS: 95251; 99214; G2211

== ENCOUNTER 2024-12-04 12:08 | Outpatient (REF) | payer MEDICARE, MEDICAID, SELFPAY ==
[2024-12-04 14:39] LABS: C Reactive Protein 0.51 mg/dL (< or = 0.50); Uric Acid 3.4 mg/dL (2.4-5.7)
--- OUTSIDE RECORDS SUMMARY | 2024-12-04 14:44 | XMS_ITS | Clinical Summary ---
Author Organization [facility] Address [address] [place] [address] Phone Care Team Providers Care Panel Machine Operator Name Role Phone Grisel Meraz MD Primary Care Provider [phone] Allergies Active Allergy Reactions Criticality Noted Date Comments Hydrocodone Anaphylaxis High 01/24/2023 Oxycodone Shortness of breath High 01/18/2017 Other reaction(s): Unknown Medications acetaminophen (TYLENOL) 500 mg tablet TOME DOS TABLETAS POR V A ORAL CADA OCHO HORAS 3 Active allopurinoL (ZYLOPRIM) 300 mg tablet Take 1 tablet (300 mg total) by mouth 1 (one) time each day. 3 Active fluticasone furoate (Arnuity Ellipta) 100 mcg/actuation blister with device inhaler INHLE 1 PUFF INTO THE LUNGS TWICE A DAY 3 Active doxycycline (VIBRAMYCIN) 100 mg capsule Take 1 capsule (100 mg total) by mouth 2 (two) times a day. 3 Active enoxaparin (LOVENOX) 40 mg/0.4 mL syringe 3 Active fenofibrate (TRICOR) 48 mg tablet Take 1 tablet (48 mg total) by mouth daily. 6 Active gabapentin (NEURONTIN) 300 mg capsule 3 Active hydrOXYzine HCL (ATARAX) 50 mg tablet 3 Active insulin glargine (Lantus Solostar U-100 Insulin) 100 unit/mL (3 mL) injection pen Inject 20 Units under the skin every night at bedtime. 1 Active insulin lispro (HumaLOG KwikPen) 100 unit/mL injection pen INJECT 2 TO 16 UNITS SUBCUTANEOUSLY FOUR TIMES DAILY 1 Active lidocaine-pril ocaine (EMLA) 2.5-2.5 % cream Apply topically as needed. 3 Active lisinopriL (PRINIVIL,ZEST RIL) 2.5 mg tablet Take 1 tablet (2.5 mg total) by mouth 1 (one) time each day. 1 Active loratadine (CLARITIN) 10 mg tablet Take 1 tablet (10 mg total) by mouth 1 (one) time each day. 4 Active multivitamin tablet Take 1 tablet by mouth 1 (one) time each day. 2 Active omega-3 fatty acids 1,000 mg capsule Take 1 capsule by mouth 1 (one) time each day in the morning. 2 Active oxyBUTYnin XL (DITROPAN-XL) 5 mg 24 hr tablet Take 1 tablet orally daily 3 Active pantoprazole (PROTONIX) 40 mg EC tablet Take 1 tablet (40 mg total) by mouth. 3 Active pioglitazone (ACTOS) 30 mg tablet Take 1 tablet (30 mg total) by mouth daily. 2 Active predniSONE (DELTASONE) 50 mg tablet Take 1 tablet (50 mg total) by mouth 2 (two) times a day. Taking on days 2-5 following each chemotherapy treatment day. Active rosuvastatin (CRESTOR) 40 mg tablet Take 1 tablet (40 mg total) by mouth 1 (one) time each day. 3 Active senna-docusate (PERICOLACE) 8.6-50 mg per tablet Take 1 tablet by mouth daily. 3 Active simethicone (MYLICON) 80 mg chewable tablet TOME ERENDIRA TABLETA POR V A ORAL CUATRO VECES AL D A CUANDO SEA NECESARIO FOR GAS PAIN/BLOATING 3 Active ondansetron (ZOFRAN) 8 mg tablet Take 1 tablet (8 mg total) by mouth every 12 hours as needed. 3 Active budesonide-for moteroL (Symbicort) 160-4.5 mcg/actuation inhaler 3 Active topiramate (TOPAMAX) 25 mg tablet Take 1 tablet (25 mg total) by mouth 2 (two) times a day. 6 Active traZODone (DESYREL) 50 mg tablet 3 Active venlafaxine XR (EFFEXOR-XR) 150 mg 24 hr capsule Take 1 capsule (150 mg total) by mouth every morning. 3 Active traMADoL (ULTRAM) 50 mg tablet Take 1 tablet (50 mg total) by mouth every 6 (six) hours if needed for severe pain. for pain Max Daily Amount: 200 mg 64 tablet 2 4 Active Active Problems Problem Noted Date Diagnosed Date Non-Hodgkin's lymphoma 09/29/2022 Encounters Date Type Department Care Team Description 09/26/2024 3:17 AM EST - 09/26/2024 4:34 AM EST Emergency [facility] Emergency [address] [place] [address] Yeast infection (Primary Dx); Hyperglycemia [...] Description 02/24/2025 3:30 PM EDT Office Visit [facility] Hematology Oncology [address] [place] [phone] Nirmal Cooper MD [address] [place] [address] Health Maintenance Due Date Last Done Comments [...] Signed Date: 09/26/2024 08:07 ET Workstation ID: [id number] Transcribed By: Self Edit Transcribed Date: 09/26/2024 [...] Signed Date: 09/26/2024 08:07 ET Workstation ID: [id number] Transcribed By: Self Edit Transcribed Date: 09/26/2024 08:06 ET Yun GALLAGHER IMG XR PROCEDURES Final Result * (ABNORMAL) POCT Glucose, blood (09/26/2024 2:43 AM EST) [facility] Glucose POCT 232(H) 70 - 100 mg/dL 09/26/2024 2:44 AM EST [facility] Blood Capillary blood specimen / Unknown 09/26/2024 2:43 AM EST 09/26/2024 2:45 AM EST us Generic Provider Poct LAB POINT OF CARE TEST DOCKED DEVICE UNSOLICITED RESULTS Final Result [facility] [address] [place] [address], [place] [phone] * (ABNORMAL) Urinalysis with reflex microscopic (09/25/2024 10:50 PM EST) [facility] Specific [place] Urine 1.024 1.003 - 1.030 LAB URINALYSIS [...] Resu lt [facility] [address] [place] [address], [place] [phone] * [place] urine culture tube (09/25/2024 10:50 PM EST) Extra Tube Hold for add-ons. 09/26/2024 1:02 AM EST [facility] Comment:Auto resulted. Urine Urine specimen obtained by clean catch procedure / Unknown 09/25/2024 10:50 PM EST 09/25/2024 11:14 PM EST us Audra GALLAGHER LAB URINE ORDERABLES Final Re sult Performing Organization Address [facility]/ZIP Co de Phone Number [facility] [address] [place] [address], [place] [phone] * (ABNORMAL) Venous blood gas (09/25/2024 10:37 [...] Resu lt [facility] [address] [place] [address], [place] [phone] * Beta hydroxybutyrate (09/25/2024 7:30 PM EST) Pathologist [facility] Emergency Department Beta-Hydroxybu tyrate 1.4 0.2 - 2.8 mg/dL LAB CHEMISTRY METHOD 09/25/2024 8:11 PM EST [facility] Blood Venous blood specimen / Unknown Venipuncture / Unknown 09/25/2024 7:30 PM EST 09/25/2024 7:37 PM EST Savage Frank DO LAB BLOOD ORDERABLES Final Resu lt Performing Organization Address City/[facility]/ZIP Co de Phone Number [facility] [address] [place] [address], * CBC auto differential (09/25/2024 7:30 PM EST) Pathologist [facility] Emergency Department WBC 6.6 4.8 - 10.8 K/mcL LAB HEMETOLOGY METHOD 09/25/2024 7:52 PM [facility] RBC 4.80 3.80 - 4.80 M/mcL LAB HEMETOLOGY METHOD 09/25/2024 7:52 PM [facility] Hemoglobin 13.9 11.5 - [...] 7:52 PM [facility] Lymphocytes Absolute 2.25 1.00 - 5.00 K/mcL LAB HEMETOLOGY METHOD 09/25/2024 7:52 PM EST [facility] Monocytes Absolute 0.61 0.20 - 1.00 K/[facility] LAB HEMETOLOGY METHOD 09/25/2024 7:52 PM EST [facility] Eosinophils Absolute 0.16 0.00 - 0.50 K/[facility] LAB HEMETOLOGY METHOD 09/25/2024 7:52 PM EST [facility] Basophils Absolute 0.09 0.00 - 0.20 K/[facility] LAB HEMETOLOGY METHOD 09/25/2024 7:52 PM EST [facility] Immature Granulocytes Absolute 0.02 0.00 - 0.03 K/[facility] LAB HEMETOLOGY METHOD 09/25/2024 7:52 PM EST [facility] Blood Venous blood specimen / Unknown Venipuncture / Unknown 09/25/2024 7:30 PM EST 09/25/2024 7:37 PM EST Savage Frank DO LAB BLOOD ORDERABLES Final Resu lt [facility] [address] [place] [address], [place] [phone] * Osmolality (09/25/2024 7:30 PM EST) Osmolality Aleksey 298 280 - 300 mOsm/kg LAB CHEMISTRY METHOD 09/25/2024 8:34 PM EST [facility] Blood Venous blood specimen / Unknown Venipuncture / Unknown 09/25/2024 7:30 PM EST 09/25/2024 7:37 PM EST Savage Frank DO LAB BLOOD ORDERABLES Final Resu lt [facility] [address] [place] [address], [place] [phone] * Magnesium (09/25/2024 7:30 PM EST) Pathologist [facility] Emergency Department Magnesium 2.0 1.9 - 2.6 mg/dL LAB CHEMISTRY METHOD 09/25/2024 8:11 PM EST [facility] Blood Venous blood specimen / Unknown Venipuncture / Unknown 09/25/2024 7:30 PM EST 09/25/2024 7:37 PM EST Stormrich Murray Monika ANNA LAB BLOOD ORDERABLES Final Resu lt [facility] [address] [place] [address], [place] [phone] * Lipase (09/25/2024 7:30 PM EST) [facility] Lipase 39 13 - 75 unit/L LAB CHEMISTRY METHOD 09/25/2024 8:11 PM EST [facility] Blood Venous blood specimen / Unknown Venipuncture / Unknown 09/25/2024 7:30 PM EST 09/25/2024 7:37 PM EST Stormrich Murray Monika ANNA LAB BLOOD ORDERABLES Final Resu lt Performing Organization Address City/[facility]/ZIP Co de Phone Number [facility] [address] [place] [address], [place] [phone] * (ABNORMAL) Comprehensive metabolic panel (09/25/2024 7:30 PM EST) Pathologist [facility] Emergency Department Sodium 131(L) 133 - 145 mmol/L LAB CHEMISTRY METHOD 09/25/2024 8:22 PM EST [facility] Potassium 4.1 3.5 - 5.5 mmol/L LAB CHEMISTRY METHOD 09/25/2024 8:22 PM EST [facility] Chloride 100 96 - 110 mmol/L LAB CHEMISTRY METHOD 09/25/2024 8:22 PM EST [facility] CO2 28 21 - 32 [...] 8:22 PM [facility] Total Bilirubin 0.6 0.0 - 1.4 mg/dL LAB CHEMISTRY METHOD 09/25/2024 8:22 PM EST [facility] Blood Venous blood specimen / Unknown Venipuncture / Unknown 09/25/2024 7:30 PM EST 09/25/2024 7:37 PM EST Savage Frank DO LAB BLOOD ORDERABLES Final Resu lt [facility] [address] [place] [address], * Lipid panel (09/06/2023) Pathologist [facility] Department LDL/HDL Ratio 0 Triglycerides 0 mg/dL Cholesterol 0 mg/dL HDL 0 mg/dL LDL Cholesterol 0 mg/dL Blood Venous blood specimen / Unknown Historical Provider LAB BLOOD ORDERABLES Prema l Result * Hepatitis C Screening (11/21/2022) Pathologist [facility] Hepatitis C Screening Abstracted Historical Provider HEALTH MAINTENANCE Final Result * HIV Screening (12/03/2021) Pathologist [facility] Department HIV Screening Abstracted Historical Provider HEALTH MAINTENANCE Final Result * Hemoglobin A1c (12/03/2021) Pathologist [facility] Hemoglobin A1C 0.0 % Blood Venous blood specimen / Unknown Historical Provider LAB BLOOD ORDERABLES Prema l Result from Last 3 Months or Most Recently Relevant to Health Maintenance Insurance [employer] MEDICARE ADVANTAGE MEDICAID - [place] Care Teams Panel Machine Operator Relationship Specialty Start Date End Date Grisel Meraz MD [address] [place] [phone] PCP - General 09/16/22
--- OUTSIDE RECORDS SUMMARY | 2024-12-04 14:44 | XMS_ITS | Encounter Summary ---
Author Organization [employer] Address [address] [address] Care Team Providers Care Order Caller Name Role Phone Grisel Meraz MD Primary Care Provider [phone] Reason for Visit * Reason Onset Date Comments Chart Prep 12/02/2024 Encounter Details Date Type Department Care Team ([facility] Contact Info) Description 12/02/2024 Telephone [facility] CHC MED & PEDS [address] [place] [address] Grisel Meraz MD [address] [place] [address] Chart Prep Social History Tobacco Use Types Packs/Day Years [...] Telephone Encounter - Liudmila Gaona [place] - 12/02/2024 1:49 PM EDT Chart Prep Labs: not applicable Images: not done Vaccines due: yes Referrals: complete Screenings: colonoscopy , pap smear , Foot Exam Overdue care gaps: Glucose, Sbirt, SDOH, PHQ-9, Oral Health, Disability documented in this encounter Plan of Treatment Upcoming Encounters Date Type Department Care Team (Late st Contact Info) Description 12/25/2024 3:15 PM EDT Clinical Support [facility] MED & PEDS [address] [place] [address] Zoe Patrick RN [address] [place] [address] 01/02/2025 11:30 AM EDT Office Visit [facility] MED & PEDS [address] [place] [address] Grisel Meraz MD [address] [place] [address] 01/09/2025 3:00 PM EDT Office Visit [facility] OPTOMETRY [address] [place] [address] Antonella Mccord, OD [address] [place] [address] documented as of this encounter Visit Diagnoses Not on filedocumented in this encounter Additional Health Concerns Assessment Noted Time PHQ-9 Depression Total Score: 21 023 11:24 AM EST documented as of this encounter Care Teams Order Caller Relationship Specialty Start Date End Date Grisel Meraz MD [address] [place] [address] PCP - General Family Medicine 03/06/19 documented as of this encounter
--- OUTSIDE RECORDS SUMMARY | 2024-12-04 14:44 | XMS_ITS | Encounter Summary ---
Author Organization [email or web address] [facility] Address [address] [place] [address] Care Team Providers Care Middleware Administrator Name Role Phone Grisel Meraz MD Primary Care Provider [phone] Encounter Details Date Type Department Care Team Description 12/20/2022 Social Work [facility] Oncology Services [address] [place] [address] [facility] Social History Tobacco Use Types Packs/Day Years [...] on filedocumented in this encounter Care Teams Middleware Administrator Relationship Specialty Start Date End Date Grisel Meraz MD [address] [facility] [place] [address] PCP - General Pediatrics 09/16/22 documented as of this encounter
--- OUTSIDE RECORDS SUMMARY | 2024-12-04 14:44 | XMS_ITS ---
Author Organization [facility] Address [address] [place] [address] Care Team Providers Care Pile Driving Technician Name Role Phone Grisel Meraz MD Primary Care Provider [phone] Active Problems Problem Noted Date Diagnosed Date Non-Hodgkin's lymphoma 09/29/2022 Current Oncology Plans No current plan information found. Past Plans ONCOLOGY TREATMENT Plan Name Start Date Discontinue Date Treatment Medications Discontinue Reason Plan Provider Cycles [facility] BCN OP R-CHOP [id number] (R IV/SC) 3 11/07/2023 acetaminophen (TYLENOL)albuterol (PROVENTIL)cycloPHOSpham [...] treatments are documented for this patient in [facility]. Treatments may have been administered in another system. Lifetime Dose Tracking * Chemical Lifetime Dose Automatic Entry Manual Entr y Doxorubicin 297.672 mg/m2 (504 mg) 297.672 mg/m2 (504 mg) 0 mg/m2 (0 mg)
--- OUTSIDE RECORDS SUMMARY | 2024-12-04 14:44 | XMS_ITS | Encounter Summary ---
Author Organization [employer] Address [address] [place] [address] [address] [address] Care Team Providers Care Hired Help Name Role Phone Grisel Meraz MD Primary Care Provider [phone] Reason for Visit * Reason Comments Med Refill Encounter Details Date Type Department Care Team ([facility] Contact Info) Description 09/14/2022 Refill [facility] [address] [place] [address] Sadie Wayne MD [address] [place] [address] Social History Tobacco Use Types Packs/Day Years [...] Upcoming Encounters Date Type Department Care Team ([facility] Contact Info) Description 12/25/2024 3:15 PM EDT Clinical Support [facility] CHC MED & PEDS [address] [place] [address] Zoe Patrick RN [address] [place], [place] [phone] 01/02/2025 11:30 AM EDT Office Visit [facility] MED & PEDS [address] [place], [place] [phone] Grisel Meraz MD [address] [place] [address] 01/09/2025 3:00 PM EDT Office Visit [facility] OPTOMETRY [address] [place], [place] [phone] Antonella Mccord, OD [address] [place], [place] [phone] documented as of this encounter Visit Diagnoses Not on filedocumented in this encounter Care Teams Hired Help Relationship Specialty Start Date End Date Grisel Meraz MD [address] [place] [address] PCP - General Family Medicine 03/06/19 documented as of this encounter
--- OUTSIDE RECORDS SUMMARY | 2024-12-04 14:44 | XMS_ITS | Encounter Summary ---
Author Organization [employer] Address [address] [facility] [address] [place] [address] Care Team Providers Care Eyeglass Maker Name Role Phone Grisel Meraz MD Primary Care Provider [phone] Encounter Details Date Type Department Care Team (Latest Contact Info) Description 12/04/2024 Travel Social History Tobacco Use Types Packs/Day Years Used Date Smoking Tobacco: Never Passive Smoke Exposure: Never Smokeless Tobacco: Never Depression Answer Date Recorded Patient Health Questionnaire-9 Score 0 12/04/2024 Patient Health Questionnaire-9 Score 0 12/04/2024 Last PHQ-9: Questionnaire Data Not on file 0 12/04/2024 Housing Stability Answer Date Recorded What is [...] Answer Date Recorded Patient Health Questionnaire-2 Score 0 12/04/2024 Comments Unknown Sex and Gender Information Value [...] Description 12/25/2024 3:15 PM EDT Clinical Support [facility] MED & PEDS [address] [place] [address] Zoe Patrick, RN [address] [place] [address] 01/02/2025 11:30 AM EDT Office Visit [facility] MED & PEDS [address] [place] [address] Grisel Meraz MD [address] [place] [address] 01/09/2025 3:00 PM EDT Office Visit [facility] OPTOMETRY [address] [place] [address] Flex, Antonella, OD [address] [place] [address] documented as of this encounter Visit Diagnoses Not on filedocumented in this encounter Additional Health Concerns Assessment Noted Time PHQ-9 Depression Total Score: 0 12/05/19 25 11:11 AM EDT documented as of this encounter Care Teams Eyeglass Maker Relationship Specialty Start Date End Date Grisel Meraz MD [address] [place] [address] PCP - General Family Medicine 03/06/19 documented as of this encounter
--- OUTSIDE RECORDS SUMMARY | 2024-12-04 14:44 | XMS_ITS | Encounter Summary ---
Author Organization [employer] Address [address] [address] Care Team Providers Care Sql Etl Developer Name Role Phone Grisel Meraz MD Primary Care Provider [phone] Reason for Visit * Reason Onset Date Comments Appointment Request 02/22/2023 Encounter Details Date Type Department Care Team ([facility] Contact Info) Description 02/22/2023 Telephone [facility] CHC MED & PEDS [address] [place] [address] Grisel Meraz MD [address] [place] [address] Appointment Request Social History Tobacco Use Types [...] are being required. Please contact pt at [phone] Guamanian Speaker documented in this encounter Plan of Treatment Upcoming Encounters Date Type Department Care Team (Late st Contact Info) Description 12/25/2024 3:15 PM EDT Clinical Support [facility] MED & PEDS [address] [place] [address] Zoe Patrick, RN [address] [place] [address] 01/02/2025 11:30 AM EDT Office Visit [facility] MED & PEDS [address] [place] [address] Grisel Meraz MD [address] [place], [place] [phone] 01/09/2025 3:00 PM EDT Office Visit [facility] OPTOMETRY [address] [place] [address] FlexAntonella, OD [address] [place] [address] documented as of this encounter Visit Diagnoses Not on filedocumented in this encounter Additional Health Concerns Assessment Noted Time PHQ-9 Depression Total Score: 21 023 11:24 AM EST documented as of this encounter Care Teams Sql Etl Developer Relationship Specialty Start Date End Date Grisel Meraz MD [address] [place] [address] PCP - General Family Medicine 03/06/19 documented as of this encounter
--- OUTSIDE RECORDS SUMMARY | 2024-12-04 14:44 | XMS_ITS | Encounter Summary ---
Author Organization [employer] Address [address] [facility] 7 [place] [address] Care Team Providers Care Winemaker Name Role Phone Grisel Meraz MD Primary Care Provider [phone] Encounter Details Date Type Department Care Team ([facility] st Contact Info) Description 07/11/2023 Abstract [facility] MEDICINE [address] [place] [address] Grisel Meraz MD [address] [place], [place] [phone] Social History Tobacco Use Types Packs/Day Years [...] Upcoming Encounters Date Type Department Care Team ([facility] st Contact Info) Description 12/25/2024 3:15 PM EDT Clinical Support [facility] MED & PEDS [address] [place] [address] Zoe Patrick RN [address] [place] [address] 01/02/2025 11:30 AM EDT Office Visit [facility] MED & PEDS [address] [place] [address] Grisel Meraz MD [address] [place] [address] 01/09/2025 3:00 PM EDT Office Visit [facility] OPTOMETRY [address] [place] [address] Flex, Antonella, OD [address] [place] [address] documented as of this encounter Procedures Procedure [...] documented as of this encounter Care Teams Winemaker Relationship Specialty Start Date End Date Grisel Meraz MD [address] [place] [address] PCP - General Family Medicine 03/06/19 documented as of this encounter
--- OUTSIDE RECORDS SUMMARY | 2024-12-04 14:44 | XMS_ITS | Encounter Summary ---
Author Organization [employer] Address 75 [facility] 7t [place] [address] Care Team Providers Care Patient Care Secretary Name Role Phone Grisel Meraz MD Primary Care Provider [phone] Encounter Details Date Type Department Care Team ([facility] Contact Info) Description 09/27/2024 Orders Only [facility] [address] [place], [place] [phone] Provider, MD Silverio Social History Tobacco Use [...] Description 12/25/2024 3:15 PM EDT Clinical Support [facility] MED & PEDS [address] [place] [address] Zoe Patrick RN [address] [place] [address] 01/02/2025 11:30 AM EDT Office Visit [facility] MED & PEDS [address] [place] [address] Grisel Meraz MD [address] [place] [address] 01/09/2025 3:00 PM EDT Office Visit [facility] OPTOMETRY [address] [place] [address] FlexAntonella montgomery, OD [address] [place] [address] documented as of this encounter Procedures Procedure [...] documented as of this encounter Care Teams Patient Care Secretary Relationship Specialty Start Date End Date Grisel Meraz MD [address] [place] [address] PCP - General Family Medicine 03/06/19 documented as of this encounter
--- OUTSIDE RECORDS SUMMARY | 2024-12-04 14:44 | XMS_ITS | Clinical Summary ---
Author Organization [facility] Address [address] [place] [address] Care Team Providers Care Temperature Regulator Pyrometer Name Role Phone Grisel Meraz MD Primary Care Provider [phone] Allergies Active Allergy Reactions Criticality Noted Date [...] tablet by mouth daily. 0 07/08/2022 Active Merrill-3 Fatty Acids (Fish Oil) 1000 MG CAPS [...] age to complete this topic Care Teams Temperature Regulator Pyrometer Relationship Specialty Start Date End Date Grisel Meraz MD [address] [place], [place] [phone] PCP - General Pediatrics 09/16/22
--- OUTSIDE RECORDS SUMMARY | 2024-12-04 14:44 | XMS_ITS | Encounter Summary ---
Author Organization [employer] Address [address] [address] Care Team Providers Care Video Software Engineer Name Role Phone Grisel Meraz MD Primary Care Provider [phone] Reason for Visit * Reason Onset Date Comments Record Request 04/05/2023 Encounter Details Date Type Department Care Team ([facility] Contact Info) Description 04/05/2023 Telephone [facility] [address] [place] [address] Grisel Meraz MD [address] [place] [address] Record Request Social History Tobacco Use Types [...] 11:24 AM EDT TC from Michelle with [facility]. States had placed requests for physician Summary form , along with copies of last Physical , last office visit , and med list . documented in this encounter Plan of Treatment Upcoming Encounters Date Type Department Care Team (Late st Contact Info) Description 12/25/2024 3:15 PM EDT Clinical Support [facility] [address] [place] [address] Zoe Patrick, RN [address] [place] [address] 01/02/2025 11:30 AM EDT Office Visit [facility] [address] [place] [address] Grisel Meraz MD [address] [place] [address] 01/09/2025 3:00 PM EDT Office Visit [facility] [address] [place], [place] [id number] Flex, Antonella, OD [address] [place] [address] documented as of this encounter Visit Diagnoses Not on filedocumented in this encounter Additional Health Concerns Assessment Noted Time PHQ-9 Depression Total Score: 21 023 11:24 AM EST documented as of this encounter Care Teams Video Software Engineer Relationship Specialty Start Date End Date Grisel Meraz MD [address] [place] [address] PCP - General Family Medicine 03/06/19 documented as of this encounter
--- OUTSIDE RECORDS SUMMARY | 2024-12-04 14:44 | XMS_ITS | Encounter Summary ---
Author Organization [employer] Address [address] [facility] [address] [place] [address] Care Team Providers Care Equip Tech Name Role Phone Grisel Meraz MD Primary Care Provider [phone] Encounter Details Date Type Department Care Team ([facility] st Contact Info) Description 09/06/2024 Orders Only [facility] [address] [place] [address] Grisel Meraz MD [address] [place] [address] Boils of multiple sites (Primary Dx) Social [...] Description 12/25/2024 3:15 PM EDT Clinical Support [facility] [address] [place] [address] Zoe Patrick RN [address] [place] [address] 01/02/2025 11:30 AM EDT Office Visit [facility] [address] [place] [address] Grisel Meraz MD [address] [place] [address] 01/09/2025 3:00 PM EDT Office Visit [facility] [address] [place] [address] Flex, Antonella, OD [address] [place] [address] documented as of this encounter Visit Diagnoses Diagnosis Boils of multiple sites- Primary documented in this encounter Additional Health Concerns Assessment Noted Time PHQ-9 Depression Total Score: 21 023 11:24 AM EST documented as of this encounter Care Teams Equip Tech Relationship Specialty Start Date End Date Grisel Meraz MD [address] [place] [address] PCP - General Family Medicine 03/06/19 documented as of this encounter
--- OUTSIDE RECORDS SUMMARY | 2024-12-04 14:44 | XMS_ITS | Clinical Summary ---
Author Organization [employer] Address [address] [facility] 7 [place] [address] Care Team Providers Care Mangle Tender Cloth Name Role Phone Grisel Meraz MD Primary Care Provider [phone] Allergies Active Allergy Reactions Criticality Noted Date [...] 2 times daily. As needed for constipation Active simethicone (Mylicon) 80 MG chewable tablet CHEW ONE TABLET FOUR TIMES DAILY NEEDED FOR BLOATING Active traZODone (Desyrel) 50 MG tablet Take 1 tablet by mouth at bedtime. Active venlafaxine XR (Effexor XR) 150 MG 24 hr capsule Take 1 capsule by mouth in the morning. Active Lantus SoloStar 100 UNIT/ML penIndications:T ype [...] each 023 Active Blood Glucose Monitoring Suppl (99Bill VerOptimal Blue) w/Device kit CHECK BLOOD SUGAR FOUR TIMES [...] time per week. 30 g 023 Active HumaLOG KWIKPEN 100 UNIT/ML injectionIndicat ions:Type 2 diabetes mellitus with hyperglycemia (CMS/HCC),half-way (current) use of insulin (CMS/HCC) INJECT 2 [...] complication, with long-term current use of insulin ([facility]) TAKE ONE TABLET EVERY MORNING 100 tablet [...] BEDTIME NEEDED FOR SLEEP OR FOR ANXIETY 024 Active loratadine (Claritin) 10 MG tablet TAKE ONE TABLET EVERY MORNING 90 tablet 1 025 Active rosuvastatin (Crestor) 40 MG tablet TAKE ONE TABLET EVERY MORNING 30 tablet 025 Active lisinopril 2.5 MG tablet TAKE ONE TABLET EVERY MORNING 30 tablet 025 Active traMADol (Ultram) 50 MG tabletIndication s:B-cell lymphoma of intra-abdominal lymph nodes, unspecified B-cell lymphoma type ([facility]/HCC) TAKE ONE TABLET EVERY 6 HOURS NEEDED FOR SEVERE PAIN 30 tablet 025 Active Dulera 200-5 MCG/ACT inhaler INHALE TWO PUFFS TWICE DAILY IN THE MORNING AND AT BEDTIME, RINSE MOUTH AFTER USE 13 g 025 Active oxybutynin XL (Ditropan-XL) 5 MG 24 hr tabletIndication s:Type 2 diabetes mellitus with hyperglycemia, with long-term current use of insulin ([facility]) TAKE ONE TABLET EVERY MORNING 30 tablet 025 Active pantoprazole (ProtoNix) 40 MG EC tabletIndication s:Type 2 diabetes mellitus with hyperglycemia, with long-term current use of insulin ([facility]) TAKE ONE TABLET EVERY MORNING 30 tablet 025 Active traMADol (Ultram) 50 MG tabletIndication s:B-cell lymphoma of intra-abdominal lymph nodes, unspecified B-cell lymphoma type ([facility]/HCC) TAKE ONE TABLET BY MOUTH TWICE DAILY NEEDED 20 tablet 023 2024 Discontinued oxybutynin XL (Ditropan-XL) 5 MG 24 hr tabletIndication s:Type 2 diabetes mellitus with hyperglycemia, with long-term current use of insulin (CMS/HCC) TAKE ONE TABLET EVERY MORNING 30 tablet 5 024 2024 Discontinued pantoprazole (ProtoNix) 40 MG EC tabletIndication s:Type 2 diabetes mellitus with hyperglycemia, with long-term current use of insulin (CMS/HCC) TAKE ONE TABLET EVERY MORNING 30 tablet [...] Encounters Date Type Department Care Team Description 12/04/2024 11:30 AM EDT Office Visit [facility] [address] [place] [address] Grisel Meraz MD Type 2 diabetes mellitus without complication, with long-term current use of insulin ([facility]) (Primary Dx); Swelling of left thumb 12/04/2024 Travel 12/02/2024 Telephone [facility] [address] [place] [address] Grisel Meraz MD Chart Prep 11/27/2024 Telephone [facility] [address] [place] [address] Grisel Meraz MD Nurse Triage 11/26/2024 Patient Outreach [address] [address] Grisel Meraz MD Pre-visit Planning (Pre visit planning LVM ) 11/22/2024 Orders Only GENERIC EXTERNAL DATA DEPARTMENT Provider, Generic External Data 11/19/2024 Orders Only GENERIC EXTERNAL DATA DEPARTMENT Provider, Generic External Data 11/17/[address] [address] Grisel Meraz MD Type 2 diabetes mellitus with hyperglycemia, with long-term current use of insulin (CMS/HCC) 11/15/2024 Orders Only [facility] [address] [place] [address] Grisel Meraz MD BETSY (obstructive sleep apnea) (Primary Dx); RLS (restless legs syndrome) 11/06/2024 11:00 AM EST Clinical Support [facility] [address] [place] [address] Zoe Patrick RN Long-term current use of opiate analgesic 11/06/2024 Travel 11/04/2024 Travel 10/31/2024 2:00 PM EST Office Visit [facility] [address] [place] [address] Grisel Meraz MD Type 2 diabetes mellitus without complication, with long-term current use of insulin (CMS/HCC) (Primary Dx); Dysphagia, unspecified type; Boil, arm 10/31/2024 Refill [facility] [address] [place] [address] Grisel Meraz MD 10/31/2024 Travel 10/31/2024 Refill [facility] [address] [place] [address] Grisel Meraz MD B-cell lymphoma of intra-abdominal lymph nodes, unspecified B-cell lymphoma type (CMS/HCC) 10/24/2024 Telephone [facility] [address] [place] [address] Grisel Meraz MD Med Refill 10/24/2024 Telephone [facility] [address] [place] [address] Grisel Meraz MD Nurse Triage 10/21/2024 Refill [facility] [address] [place] [address] Grisel Meraz MD 10/18/2024 Orders Only GENERIC EXTERNAL DATA DEPARTMENT Provider, Generic External Data 10/16/2024 Refill [facility] [address] [place] [address] Grisel Meraz MD 10/09/2024 Orders Only GENERIC EXTERNAL DATA DEPARTMENT Provider, Generic External Data 09/27/2024 Orders Only [facility] [address] [place] [phone] ProviderSilverio MD 09/25/2024 Orders Only GENERIC EXTERNAL DATA DEPARTMENT Provider, Generic External Data 09/06/2024 Orders Only [facility] [address] [place] [address] Grisel Meraz MD Boils of multiple sites (Primary Dx) 09/06/2024 Telephone [facility] [address] [place] [phone] Brigette Hubbard RN Lab Orders 09/05/2024 1:20 PM EST Office Visit [facility] [address] [place] [address] Grisel Meraz MD Encounter for immunization (Primary Dx); Type 2 diabetes mellitus without complication, with long-term current use of insulin (CMS/[facility]); Boils of multiple sites; BETSY (obstructive sleep apnea); Multiple joint pain; Diabetes mellitus, labile (CMS/HCC); Non-Hodgkin lymphoma of intra-abdominal lymph nodes, unspecified non-Hodgkin lymphoma type (CMS/HCC); Dietary counseling; Exercise counseling 09/05/2024 Travel from Last 3 Months Immunizations Name [...] Description 12/25/2024 3:15 PM EDT Clinical Support [facility] [address] [place] [address] Zoe Patrick, TREVER [address] [place] [address] 01/02/2025 11:30 AM EDT Office Visit [facility] [address] [place] [address] Grisel Meraz MD [address] [place] [address] 01/09/2025 3:00 PM EDT Office Visit [facility] [address] [place] [address] FlexAntonella montgomery, OD [address] [place] [address] Health Maintenance Due Date Last Done Comments CT Colonography 1972 Dental Prophylaxis 1972 FIT DNA/Cologuard 1972 FIT 1972 FOBT 1972 Sigmoidoscopy 1972 Diabetes: Foot Exam 1982 Eye Exam 1982 Family Planning (PISQ) 1987 Hepatitis B Vaccines (1 of 3 - 19+ 3-dose series) 1991 Pap Smear 1993 Pneumococcal Vaccine: 50+ Years (2 of 2 - PCV) 03/10/2015 03/10/2014 Dental Oral Exam 01/16/2020 07/17/2019 Colonoscopy 11/22/2021 11/22/2016 Colorectal Cancer Screening 11/22/2021 Dental X-Ray: Full Mouth 07/18/2022 07/17/2019 Dental X-Ray: Bitewings 07/07/2023 07/06/2022, 07/17 SDOH Screening 10/26/2023 10/26/2022 Cervical Cancer Screening 04/18/2024 HPV/Cotest 04/18/2024 04/18/2019 COVID-19 Vaccine ( season) 2024 10/27/2022, 12/13/2021, 02/11/2021, Additional history exists Diabetes: Hemoglobin A1C 03/05/2025 025, 09/05/2024, 04/09/2024, Additional history exists Tobacco Screening 09/05/2025 09/05/2024 Mammogram 11/15/2025 11/16/2023 Diabetes: Urine Protein Screening 11/22/2025 11/22/2024, 09/06/2023, 12/03/2021, Additional history exists Lipid Panel 11/22/2025 11/22/2024, 11/2023, 12/03/2021, Additional history exists Alcohol/Substance Use Screening 12/04/2025 12/04/2024 Depression Screening 12/04/2025 12/04/2024, 12/05/19 25 DTaP/Tdap/Td Vaccines (5 - Td or Tdap) [...] Procedure Name Priority Date/Time Associated Diagnosis Comments C-REACTIVE PROTEIN Routine 12/04/2024 12 :10 PM EDT Swelling of left thumb URIC ACID Routine 12/04/2024 12:10 PM EDT Swelling of left thumb POCT GLYCATED HEMOGLOBIN, TOTAL Routine 12/04/2024 11:43 AM EDT Type 2 diabetes mellitus without complication, with long-term current use of insulin ([facility]) POCT GLUCOSE Routine 12/04/2024 11:43 AM EDT Type 2 diabetes mellitus without complication, with long-term current use of insulin ([facility]) GLUCOSE, WHOLE BLOOD Routine 11/22/2024 2:59 PM EDT THYROID PEROXIDASE ANTIBODIES Routine 11/22/2024 11:46 AM EDT LIPID PANEL, STANDARD Routine 11/22/2024 11:46 AM EDT ALT Routine 11/22/2024 11:46 AM EDT AST Routine 11/22/2024 11:46 AM EDT BASIC METABOLIC PANEL Routine 11/22/2024 11:46 AM EDT TSH Routine 11/22/2024 11:46 AM EDT T4, FREE Routine 11/22/2024 11:46 AM EDT ALBUMIN, RANDOM URINE W/CREATININE Routine 11/22/2024 11:22 AM EDT GLUCOSE, WHOLE BLOOD Routine 11/19/2024 3:19 PM EDT POLYSOMNOGRAM Routine 11/12/2024 BETSY (obstructive sleep apnea) POCT ROSELYN-14 URINE DRUG SCREEN Routine 11/06/2024 11:25 AM EST Long-term current use of opiate analgesic POCT GLUCOSE Routine 10/31/2024 2:23 PM EST Type 2 diabetes mellitus without complication, with long-term current use of insulin (CMS/HCC) GLUCOSE, WHOLE BLOOD Routine 10/18/2024 3:19 PM [...] screening mammogram for malignant neoplasm of breast BITEWINGS - 4 RADIOGRAPHIC IMAGES Routine 07/06/2022 [...] Relevant to Health Maintenance Results * (ABNORMAL) POCT HGB A1C (12/04/2024 11:43 AM EDT) Only the most recent of2 resultswithin the time period is included. Hemoglobin A1C 8.1(A) 4.0 - 6.0 % QC Media Lot # [id number] Lot# Expiration Date Blood 12/04/2024 11:4 3 AM EDT Grisel Meraz MD POINT OF CARE TEST ENTER/EDIT ORDERABLES Final Result * (ABNORMAL) POCT Glucose (12/04/2024 11:43 AM EDT) Only the most recent of3 resultswithin the time period is included. Glucose Blood, POC 402(A) 60 - 200 mg/dL QC Media Lot # [id number] Lot# Expiration Date Blood Capillary blood specimen / Unknown 12/04/2024 11:43 AM EDT Grisel Meraz MD POINT OF CARE TEST ENTER/EDIT ORDERABLES Final Result * (ABNORMAL) Glucose, Whole Blood (11/22/2024 2:59 PM EDT) Only the most recent of5 resultswithin the time period is included. Glucose, Whole Blood 219(H) 60 - 115 mg/dL [facility] Comment:METER #: [id number] Testing performed in the Endocrinology Department [address] , [address], [facility]. 11/22/2024 2:59 PM EDT 11/22/2024 3:03 PM EDT us Generic External Data Provider LAB BLOOD ORDERAB LES Final Result Performing Organization Address [facility] Co de Phone Number [facility] [address] [place] [phone] * Thyroid Peroxidase Antibodies (11/22/2024 11:46 AM EDT) Thyroid Peroxidase Antibodies <1 <9 IU/mL [facility] Comment:THIS TEST WAS PERFOR MED AT:[facility] [place] [id number] FARFAN MD 11/22/2024 11:4 6 AM EDT 11/22/2024 11:46 AM EDT us Generic External Data Provider LAB BLOOD ORDERAB LES Final Result Performing Organization Address [facility] de Phone Number [facility] [address] [place] [phone] * (ABNORMAL) ALT (11/22/2024 11:46 AM EDT) Alanine Aminotransferase 34(H) 0 - 31 U/L [facility] 11/22/2024 11:4 6 AM EDT 11/22/2024 11:46 AM EDT us Generic External Data Provider LAB BLOOD ORDERAB LES Final Result Performing Organization Address [facility] Co de Phone Number [facility] [address] [place] [phone] * (ABNORMAL) AST (11/22/2024 11:46 AM EDT) Aspartate Amino Transferase 32(H) 5 - 31 U/L [facility] 11/22/2024 11:4 6 AM EDT 11/22/2024 11:46 AM EDT Generic External Data Provider LAB BLOOD ORDERAB LES Final Result Performing Organization Address [facility]/ZIP Co de Phone Number [facility] [address] [place] [phone] * (ABNORMAL) TSH (11/22/2024 11:46 AM EDT) Thyroid Stimulating Hormone 4.55(H) 0.32 - 4.0 uIU/mL [facility] Comment:Note: A sustained TS H level above 2.5 uIU/mL may warrant further investigation. TSH 3rd Generation ([facility]) 11/22/2024 11:4 6 AM EDT 11/22/2024 11:46 AM EDT Generic External Data Provider LAB BLOOD ORDERAB LES Final Result Performing Organization Address [facility] Co de Phone Number [facility] [address] [place] [phone] * T4, Free (11/22/2024 11:46 AM EDT) Free T4 (Free Thyroxine) 0.80 0.71 - 1.85 ng/dL [facility] 11/22/2024 11:4 6 AM EDT 11/22/2024 11:46 AM EDT Generic External Data Provider LAB BLOOD ORDERAB LES Final Result Performing Organization Address [facility] Co de Phone Number [facility] [address] [place] [phone] * Lipid Panel, Standard (11/22/2024 11:46 AM EDT) Triglycerides 137 <150 mg/dL [facility] Comment:Desirable Triglyceri de: less than 150 mg/dLBorderline High Triglyceride 150-199 mg/dLHigh Triglyceride: 200-499 mg/dLVery High Triglyceride: greater than or equal to 5OO mg/dL Cholesterol 159 <200 mg/dL [facility] Comment:Desirable Cholestero l: less than 200 mg/dLBorderline High Cholesterol: 200-239 mg/dLHigh Cholesterol: greater than 239 mg/dL LDL Cholesterol Calculated 78 <100 mg/dL [facility] Comment:Desirable LDL: less than 100 mg/dLNear Optimal/Above Optimal LDL: 110- 129 mg/dLBorderline High LDL: 130-159 mg/dLHigh LDL: 160-189 mg/dLVery High LDL: greater than or equal to 190 mg/dL HDL Cholesterol 54 >40 mg/dL [facility] Comment:Desirable HDL: great er than 40 mg/dL Note: This HDL assay may give artificially low results in patients with liver disease. 11/22/2024 11:4 6 AM EDT 11/22/2024 11:46 AM EDT us Generic External Data Provider LAB BLOOD ORDERAB LES Final Result [facility] [address] [place] [phone] * (ABNORMAL) Basic Metabolic Panel (11/22/2024 11:46 AM EDT) Sodium 143 135 - 145 mmol/L [facility] Potassium 4.0 3.3 - 5.1 mmol/L [facility] Chloride 111(H) 96 - 108 mmol/L [facility] Carbon Dioxide 26 22 - 29 mmol/L [facility] Anion Gap 10(L) 12 - 20 [facility] Urea Nitrogen (BUN) 19(H) 9 - 16 mg/dL [facility] Creatinine, Serum 0.67 0.5 - 1.4 mg/dL [facility] Estimated Glomerular Filt Rate >60 [facility] Comment:Chronic Kidney Disea se: Estimated GFR < 60 mL/min/1.69s9Vsevlt Kidney Disease: Estimated GFR < 15 mL/min/1.73m2 Glucose 24(LL) 60 - 115 mg/dL [facility] Comment:Critical value for t est(s): GLU Results called to and readback by: Damaris Padilla Person calling: DONALDO Date: 11/22/2024Time: 1404 Calcium 9.4 8.4 - 10.2 mg/dL [facility] 11/22/2024 11:4 6 AM EDT 11/22/2024 11:46 AM EDT us Generic External Data Provider LAB BLOOD ORDERAB LES Final Result Performing Organization Address [facility] Co de Phone Number [facility] [address] [place] [phone] * Albumin, Random Urine W/Creatinine (11/22/2024 11:22 AM EDT) Creatinine, Urine 123.70 mg/dL [facility] Microalbumin Urine 16.0 mg/L [facility] Microalbum Creatinine Ratio Ur 12.9 <30 ug/mg cr [facility] Comment:Albumin/Creatinine R atio Reference Ranges: Normal: < 30 ug/mg creatinine Microalbuminuria: 30 - 300 ug/mg creatinineClinical Albuminuria: > 300 ug/mg creatinine 11/22/2024 11:2 2 AM EDT 11/22/2024 12:34 PM EDT us Generic External Data Provider LAB URINE ORDERAB LES Final Result Performing Organization Address City/[facility]/ZIP Co de Phone Number [facility] [address] [place] [phone] * Polysomnography (11/12/2024) us Grisel Meraz MD SLEEP CENTER ORDERABLES Final Result * POCT ROSELYN-14 Urine Drug Screen (11/06/2024 11:25 AM EST) THC Positive Urine Urine specimen obtained by clean catch procedure / Unknown 11/06/2024 11:25 AM EST Narrative Zoe Patrick RN - 11/06/2024 11:25 AM EST Lot# [id number] Exp: 04-23-26 Grisel Meraz MD POINT OF CARE TEST ENTER/EDIT ORDERABLES Final Result * XR Chest 2 Views (09/26/2024 9:20 AM EST) Anatomical Region Laterality Modality Chest Radiographic Sherita ging [facility] Provider IMG XR PROCEDURES Final R esult * (ABNORMAL) MRSA Nasal Screen (09/05/2024 1:45 PM EST) MRSA Nasal PCR NEGATIVE Negative [facility] SA Nasal PCR POSITIVE(A) Negative [facility] MRSA Interpretation SEE NOTE [facility] Comment:MRSA target DNA not detected; SA target DNA detected.A MRSA NEGATIVE, SA POSITIVE test result does not precludeMRSA nasal colonization. Nares Nasal structure / Unknown 09/05/2024 1:45 PM EST 09/06/2024 1:44 PM EST Result [facility] Grisel Meraz MD LAB MICROBIOLOGY - GENERAL OR DERABLES Final Result [facility] [address] [place] [address] [phone] * BI Mammogram Screening Bilateral (11/16/2023) Anatomical Region Laterality Modality Breast Bilateral Mammography Grisel Meraz MD IMG BI PROCEDURES Final Resul t * HEPATITIS C AB W/REFL TO HCV RNA, QN, PCR (12/03/2021 12:00 AM EDT) HEPATITIS C ANTIBODY NON-REACT MICHAEL NON-REACT MICHAEL [facility] INDEX 0.01 <1.00 [facility] Comment: ?? HCV antibody was non-reactive. There is no laboratory ?? evidence of HCV infection. ?? In most cases, no further action is required. However, if recent HCV exposure is suspected, a test for HCV RNA (test code 64926) is suggested. ?? For additional information please refer to http://[employer]/faq/SAC73e7 (This link is being provided for informational/ educational purposes only.) ?? 12/03/2021 us Grisel Meraz MD HISTORICAL/NON ORDERABLE LABS Final Result Performing Organization Address [facility] Phone Number [facility] [address] [place] [address], * HIV 1/2 ANTIGEN/ANTIBODY,FOURTH GENERATION W/RFL (12/03/2021 12:00 AM EDT) Pathologist [facility] HIV-1/2 ANTIGEN AND ANTIBODIES, 4TH GENERATION W/ [...] ? For additional information please refer to http://Android [employer]/faq/ZWH352 (This link is being provided for informational/ educational purposes only.) ? The performance of this assay has not been clinically validated in patients less than 2 years old. ?? 12/03/2021 us Grisel Meraz MD LAB BLOOD ORDERABLES Final Re sult Performing Organization Address [facility] Phone Number [facility] [address] [place] [address], * HPV E6/E7 RFLX SONIA 16 18/45 (04/18/2019 11:40 AM EDT) HPV 16 RNA Test not performed [facility] HPV 18/45 RNA Test not performed [facility] HPV mRNA E6/E7 Not Detected NOT DETECTED [facility] Comment: This test was performed using the APTIMA(R) HPV Assay ([employer] This assay detects E6/E7 viral messenger RNA (mRNA) from 14 high-risk HPV types (16,18,31,33,35,39,45,51, 52,56,58,59,66,68). For additional information please refer to: http://education.[employer]/faq/QEJ402b8 (This link is being provided for informational/ educational purposes only.) The analytical performance characteristics of this assay have been determined by [employer] [place], [place]. The modifications have not been cleared or approved by the FDA. This assay has been validated pursuant to the CLIA regulations and is used for clinical purposes. Please note: ??Effective 05/16/2016, HPV testing will be performed using [employer]'s APTIMA test which targets mRNA. Detecting mRNA instead of DNA, as in older methods, offers significant improvements in specificity. ADDITIONAL TESTING Not indicated () [facility] Comment: Test Performed by [email or web address], [employer] [facility], [address] [place] [address] Jorje Hendrickson M.D., Ph.D., Director of Laboratories , CLIA [id number] 04/18/2019 11:4 0 AM EDT us Grisel Meraz MD HISTORICAL/NON ORDERABLE LABS Final Result [facility] [address] * Colonoscopy (11/22/2016) Pathologist [facility] Colonoscopy Normal Normal Narrative Vianey Ross - 11/22/2016 Recommended 5 year follow up us Historical Provider HEALTH MAINTENANCE Final Result from Last 3 Months or Most Recently Relevant to Health Maintenance Insurance [employer] MEDICARE REPLACEMENT [facility] STAND AD[place] Advance Directives Documents on File Type Date Recorded Patient Hvac Residential Service Technician Expl anation Advance Directives and Livin g Will 11/09/2023 3:59 PM HCP Care Teams Mangle Tender Cloth Relationship Specialty Start Date End Date Begolli, Grisel, MD [address] [place] [phone] PCP - General Family Medicine 03/06/19
--- OUTSIDE RECORDS SUMMARY | 2024-12-04 14:44 | XMS_ITS | Encounter Summary ---
Author Organization [employer] Address [address] [facility] 7 [place] [address] Care Team Providers Care Clinical Liaison Name Role Phone Grisel Meraz MD Primary Care Provider [phone] Encounter Details Date Type Department Care Team ([facility] st Contact Info) Description 12/04/2024 11:30 AM EDT Office Visit [facility] MED & PEDS [address] [place] [address] Grisel Meraz MD [address] [place] [address] Type 2 diabetes mellitus without complication, with long-term current use of insulin ([facility]) (Primary Dx); Swelling of left thumb Social History Tobacco Use Types Packs/Day Years [...] Upcoming Encounters Date Type Department Care Team ([facility] Contact Info) Description 12/25/2024 3:15 PM EDT Clinical Support [facility] MED & PEDS [address] [place] [address] Zoe Patrick RN [address] [place] [address] 01/02/2025 11:30 AM EDT Office Visit [facility] MED & PEDS [address] [place] [address] Grisel Meraz MD [address] [place] [address] 01/09/2025 3:00 PM EDT Office Visit [facility] OPTOMETRY [address] [place] [address] FlexAntonella montgomery, OD [address] [facility] [place] [address] Pending Results Name Type Priority Associated Diagnoses Date /Time Uric acid Lab Routine Swelling of left thumb 12/04/2024 12:10 PM EDT C-reactive Protein Lab Routine Swelling of left thumb 12/04/2024 12:10 PM EDT Scheduled Orders Name Type Priority Associated Diagnoses Orde r Schedule Sed Rate by Modified [place] Lab Routine Swelling of left thumb Expected: 12/04/2024, Expires: 12/04/2025 Rheumatoid Factor Lab Routine Swelling of left thumb Expected: 12/04/2024, Expires: 12/04/2025 TSH W/Reflex to FT4 Lab Routine Type 2 diabetes mellitus without complication, with long-term current use of insulin ([facility]) Expected: 12/04/2024 (Approximate), Expires: 12/04/2025 documented as of this encounter Procedures Procedure Name Priority Date/Time Associated Diagnosis Comments C-REACTIVE PROTEIN Routine 12/04/2024 12 :10 PM EDT Swelling of left thumb URIC ACID Routine 12/04/2024 12:10 PM EDT Swelling of left thumb POCT GLYCATED HEMOGLOBIN, TOTAL Routine 12/04/2024 11:43 AM EDT Type 2 diabetes mellitus without complication, with long-term current use of insulin ([facility]) POCT GLUCOSE Routine 12/04/2024 11:43 AM EDT Type 2 diabetes mellitus without complication, with long-term current use of insulin ([facility]) documented in this encounter Results * (ABNORMAL) POCT HGB A1C (12/04/2024 11:43 AM EDT) Hemoglobin A1C 8.1(A) 4.0 - 6.0 % QC Media Lot # [id number] Lot# Expiration Date Blood 12/04/2024 11:4 3 AM EDT us Grisel Meraz MD POINT OF CARE TEST ENTER/EDIT ORDERABLES Final Result * (ABNORMAL) POCT Glucose (12/04/2024 11:43 AM EDT) Glucose Blood, POC 402(A) 60 - 200 mg/dL QC Media Lot # [id number] Lot# Expiration Date 73,025 Blood Capillary blood specimen / Unknown 12/04/2024 11:43 AM EDT us Grisel Meraz MD POINT OF CARE TEST ENTER/EDIT ORDERABLES Final Result documented in this encounter Visit Diagnoses Diagnosis Type 2 diabetes mellitus without complication, with long-term current use of insulin ([facility])- Primary Swelling of left thumb documented in this encounter Additional Health Concerns Assessment Noted Time PHQ-9 Depression Total Score: 0 12/05/19 25 11:11 AM EDT documented as of this encounter Care Teams Clinical Liaison Relationship Specialty Start Date End Date Grisel Meraz MD [address] [place] [id number] PCP - General Family Medicine 03/06/19 documented as of this encounter
--- OUTSIDE RECORDS SUMMARY | 2024-12-04 14:44 | XMS_ITS | Encounter Summary ---
Author Organization [employer] [facility] Address [address] [place] [address] Care Team Providers Care Crystal Mounter Name Role Phone Grisel Meraz MD Primary Care Provider [phone] Encounter Details Date Type Department Care Team Description 11/01/2022 Social Work [facility] Oncology Services [address] [place] [address] Grabiel Silva [facility] [...] on filedocumented in this encounter Care Teams Crystal Mounter Relationship Specialty Start Date End Date Grisel Meraz MD [address] [facility] [place] [address] PCP - General Pediatrics 09/16/22 documented as of this encounter
--- OUTSIDE RECORDS SUMMARY | 2024-12-04 14:44 | XMS_ITS | Encounter Summary ---
Author Organization [employer] Address [address] [address] Care Team Providers Care Options Trader Name Role Phone Grisel Meraz MD Primary Care Provider [phone] Encounter Details Date Type Department Care Team (Latest Contact Info) Description 07/06/[address] [facility] CONVERSIONS Dental, Provider, DDS Social History [...] Description 12/25/2024 3:15 PM EDT Clinical Support [facility] CH[facility] MED & PEDS [address] [place] [address] Zoe Patrick, TREVER [address] [place] [address] 01/02/2025 11:30 AM EDT Office Visit [facility] CH[facility] MED & PEDS [address] [place] [address] Grisel Meraz MD [address] [place] [address] 01/09/2025 3:00 PM EDT Office Visit [facility] OPTOMETRY [address] [place] [address] Antonella Mccord, OD [address] [place] [address] documented as of this encounter Visit Diagnoses Not on filedocumented in this encounter Care Teams Options Trader Relationship Specialty Start Date End Date Grisel Meraz MD [address] [place] [id number] PCP - General Family Medicine 03/06/19 documented as of this encounter
--- OUTSIDE RECORDS SUMMARY | 2024-12-04 14:44 | XMS_ITS | Encounter Summary ---
Author Organization [employer] Address [address] [address] Care Team Providers Care Payroll Analyst Name Role Phone Grisel Meraz MD Primary Care Provider Reason for Visit * Reason Onset Date Comments triage 08/16/2022 Encounter Details Date Type Department Care Team ([facility] Contact Info) Description 08/16/2022 Telephone [facility] CHC MED & PEDS [address] [place] [address] Grisel Meraz MD [address] [place] [address] triage Social History Tobacco Use Types Packs/Day [...] report Losing weight x Months. Patient speaks (Slovak). Advised triage nurse will call patient back. documented in this encounter Plan of Treatment Upcoming Encounters Date Type Department Care Team ([facility] Contact Info) Description 12/25/2024 3:15 PM EDT Clinical Support [facility] CH[facility] MED & PEDS [address] [place] [address] Zoe Patrick, RN [address] [place], [place] [phone] 01/02/2025 11:30 AM EDT Office Visit [facility] MED & PEDS [address] [place] [address] Grisel Meraz MD [address] [place] [address] 01/09/2025 3:00 PM EDT Office Visit [facility] OPTOMETRY [address] [place] [address] Antonella Mccord, OD [address] [place] [address] documented as of this encounter Visit Diagnoses Not on filedocumented in this encounter Care Teams Payroll Analyst Relationship Specialty Start Date End Date Grisel Meraz MD [address] [place] [address] PCP - General Family Medicine 03/06/19 documented as of this encounter
[2024-12-04 14:55] LABS: Rheumatoid Factor < 13.0 IU/mL (<15.0)
[2024-12-04 14:58] LABS: TSH reflex Free T4 4.25 uIU/mL (0.32-4.0)
[2024-12-04 15:22] LABS: Erythrocyte Sedimentation Rate 53 MM/HR (0-20)
[2024-12-04 16:34] LABS: Free T4 (Free Thyroxine) 1.02 ng/dL (0.71-1.85)
== END 2024-12-04 12:09 | disposition home or self-care (01) ==
LOC: HO.CHCLDS 12:08
PROVIDERS: Visit Provider Pediatrics
DX: M79.89 Other specified soft tissue disorders (principal); E11.9 Type 2 diabetes mellitus without complications; Z79.4 Long term (current) use of insulin
CPT/HCPCS: 36415; 84439; 84443; 84550; 85652; 86140; 86431

== ENCOUNTER 2024-12-25 13:53 | Outpatient (AMB) | payer OTHER, MEDICAID, SELFPAY ==
--- NOTE | 2024-12-25 14:09 | A.OFFVIS_ITS ---
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: No Accompanied by: Self / Same As Patient Allergies acetaminophen [From Percocet] Allergy (Severe, Verified 10/09/24 15:30) Anaphylaxis oxycodone [From Percocet] Allergy (Severe, Verified 10/09/24 15:30) Anaphylaxis Vicodin Allergy (Unknown, Uncoded 10/09/24 15:30) Anaphylaxis HPI Comprehensive Diabetes Asmnt Most Recent Diabetes Results: 2 Microalb/Creat Ratio 12.9 ug/mg cr (<30) 11/22/24 Cholesterol 159 mg/dL (<200) 11/22/24 HDL Cholesterol 54 mg/dL (>40) 11/22/24 Triglycerides 137 mg/dL (<150) 11/22/24 Creatinine 0.67 mg/dL (0.5-1.4) 11/22/24 Blood Urea Nitrogen 19 mg/dL (9-16) H 11/22/24 Sodium 143 mmol/L (135-145) 11/22/24 Potassium 4.0 mmol/L (3.3-5.1) 11/22/24 Chloride 111 mmol/L (96-108) H 11/22/24 Carbon Dioxide 26 mmol/L (22-29) 11/22/24 Calcium 9.4 mg/dL (8.4-10.2) 11/22/24 AST 32 U/L (5-31) H 11/22/24 ALT 34 U/L (0-31) H 11/22/24 Total Protein 8.3 g/dL (6.5-8.0) H 03/04/21 Albumin 4.4 g/dL (3.5-5.0) 03/04/21 [facility] Medical History Cellulitis Right groin pain Arthritis Elevated LFTs Fibromyalgia Bunion, left foot Migraine Asthma Seasonal allergies Mood disorder Joint pain Hyperlipidemia LDL goal <100 Type 2 diabetes mellitus with polyneuropathy Type 2 diabetes mellitus with hyperglycemia Surgical History Hx of colonoscopy (~2019) Hx of cholecystectomy Hx of foot surgery History of bilateral carpal tunnel release Hx of cataract surgery Family History Father Hypertension Mother Diabetes Colon cancer Brother Liver cancer Social History Household Members: Other Household Members Other:: Sister Alcohol intake: current Alcohol intake frequency: does not drink Patient Tobacco Use Status: Never used Tobacco Assessment & Plan Assessment & Plan (1) Type 2 diabetes mellitus with hyperglycemia: Code(s): E11.65 - Type 2 diabetes mellitus with hyperglycemia Qualifiers: Diabetes mellitus jail insulin use: with jail use Qualified Code(s): E11.65 - Type 2 diabetes mellitus with hyperglycemia; Z79.4 - buttermaker continuous churn (current) use of insulin Plan: Patient presents for pump training for iLet pump and CGM training today. The following topics were reviewed today: -Pump therapy basic concepts: Basal/bolus -For most effective glucose control bolus prior to meals - Off pump backup insulin plan iLet Alerts: ??? High Alert: 300 mg/dl ??? Low Alert: 75 mg/dl reconnected Pt's pump to iLet chad Pt had infusion site that appeared to have scab at insertion site Pt denies fever, swelling, pain Pt reports she could not afford the hibiclens so she has not used Instructed Pt to report fever, discharge, swelling, pain at site Instructed Pt again how to annouce meals Pt glucose has improved since resuimg pump therapy Instructed patient to only use room temperature insulin, how to load cartridge or fill pod, with insulin. Fill tubing and cannula (if applicable) Troubleshooting after starting new pod or inserting new insulin set: Occlusion, adhesive tape sensitivity, redness Check BG 2 hours after site change Reviewed Safety information: Importance of a backup plan, for manual injections, proper prescriptions and emergency supplies ketone strips, and rules for testing for ketones Patient understands the basic concepts of pump therapy, how to give insulin for meals and snacks, how to troubleshoot for hyper and hypoglycemia. Patient will follow up with [facility] as instructed Patient will contact [facility] with questions or concerns, patient given IT number to support in any technical issues related to insulin pump Portions of this note were created using voice recognition software, please excuse any words or phrases that may have been misinterpreted. Patient Instructions: follow up with nurse educator in 1 month Coding Level of Care Code Est Pt Level 1 (26332) Diagnoses Type 2 diabetes mellitus with hyperglycemia, with long-term current use of insulin E11.65; Z79.4 Diabetes mellitus jail insulin use: with jail use
--- OUTSIDE RECORDS SUMMARY | 2024-12-25 16:40 | XMS_ITS | Encounter Summary ---
Author Organization [employer] Address [address] [facility] 7 [place] [address] Care Team Providers Care Audio Visual Design Engineer Name Role Phone Grisel Meraz MD Primary Care Provider Encounter Details Date Type Department Care Team ([facility] st Contact Info) Description 07/11/[address] [facility] MEDICINE [address] [place] [address] Grisel Meraz MD [address] [place], [place] [phone] Social History Tobacco Use Types Packs/Day Years [...] Care Team (Late st Contact Info) Description 01/02/2025 11:30 AM EDT Office Visit [facility] MED & PEDS [address] [place] [address] Grisel Meraz MD [address] [place] [address] 01/09/2025 3:00 PM EDT Office Visit [facility] OPTOMETRY [address] [place] [address] Antonella Mccord, OD [address] [place] [address] 02/27/2025 3:00 PM EDT Clinical Support [facility] MED & PEDS [address] [place] [address] Zoe Patrick, TREVER [address] [place] [address] documented as of this encounter Procedures Procedure [...] documented as of this encounter Care Teams Audio Visual Design Engineer Relationship Specialty Start Date End Date Grisel Meraz MD [address] [place] [id number] PCP - General Family Medicine 03/06/19 documented as of this encounter
--- OUTSIDE RECORDS SUMMARY | 2024-12-25 16:40 | XMS_ITS | Clinical Summary ---
Author Organization [employer] Address [address] [facility] 7 [place] [address] Care Team Providers Care Water Pump Operator Name Role Phone Grisel Meraz MD [...] each 023 Active Blood Glucose Monitoring Suppl (Mirror Digital VerPharmMD) w/Device kit CHECK BLOOD SUGAR FOUR TIMES [...] TIMES DAILY 100 strip 11 024 Active pioglitazone (Actos) 15 MG tablet [...] intra-abdominal lymph nodes, unspecified B-cell lymphoma type ([facility]) TAKE ONE TABLET EVERY 6 HOURS NEEDED FOR SEVERE PAIN 30 tablet 025 Active Dulera 200-5 MCG/ACT inhaler INHALE TWO PUFFS TWICE DAILY IN THE MORNING AND AT BEDTIME, RINSE MOUTH AFTER USE 13 g 025 Active oxybutynin XL (Ditropan-XL) 5 MG 24 hr tabletIndication s:Type 2 diabetes mellitus with hyperglycemia, with long-term current use of insulin ([facility]) TAKE ONE TABLET EVERY MORNING 30 tablet 025 Active pantoprazole (ProtoNix) 40 MG EC tabletIndication s:Type 2 diabetes mellitus with hyperglycemia, with long-term current use of insulin ([facility]) TAKE ONE TABLET EVERY MORNING 30 tablet 025 Active Multiple Vitamin (Multivitamin) tabletIndication s:Type 2 diabetes mellitus without complication, with long-term current use of insulin ([facility]) TAKE ONE TABLET EVERY MORNING 90 tablet 025 Active Multiple Vitamin (Multivitamin) tabletIndication s:Type 2 diabetes mellitus without complication, with long-term current use of insulin ([facility]) TAKE ONE TABLET EVERY MORNING 100 tablet 2 024 2024 Discontinued(R eorder (will not trigger notification to Pharmacy)) Active Problems Problem Noted Date Diagnosed Date [...] Encounters Date Type Department Care Team Description 12/25/2024 3:15 PM EDT Clinical Support [facility] [address] [place] [address] Zoe Patrick, TREVER Multiple joint pain 12/25/2024 Refill [facility] [address] [place] [address] Zoe Patrick, TREVER B-cell lymphoma of intra-abdominal lymph nodes, unspecified B-cell lymphoma type ([facility]/HCC) 12/25/2024 Telephone [facility] [address] [place] [address] Zoe Patrick RN 12/25/2024 Travel 12/20/2024 Refill [facility] [address] [place] [address] Grisel Meraz MD Type 2 diabetes mellitus without complication, with long-term current use of insulin (CMS/HCC) 12/04/2024 11:30 AM EDT Office Visit [facility] [address] [place] [address] Grisel Meraz MD Type 2 diabetes mellitus without complication, with long-term current use of insulin (CMS/HCC) (Primary Dx); Swelling of left thumb; Mood disorder (CMS/HCC) 12/04/2024 Orders Only [facility] [address] [place] [address] Grisel Meraz MD 12/04/2024 Travel 12/02/2024 Telephone [facility] [address] [place] [address] Grisel Meraz MD Chart Prep 11/27/2024 Telephone [facility] [address] [place] [address] Grisel Meraz MD Nurse Triage 11/26/2024 Patient Outreach [facility] [address] [place] [phone] Grisel Meraz MD Pre-visit Planning (Pre visit planning LVM ) 11/22/2024 Orders Only GENERIC EXTERNAL DATA DEPARTMENT Provider, Generic External Data 11/19/2024 Orders Only GENERIC EXTERNAL DATA DEPARTMENT Provider, Generic External Data 11/17/[address] [address] Grisel Meraz MD Type 2 diabetes mellitus with hyperglycemia, with long-term current use of insulin (CMS/HCC) 11/15/2024 Orders Only [facility] [address] [place] [address] Grisel Meraz MD BETSY (obstructive sleep apnea) (Primary Dx); RLS (restless legs syndrome) 11/06/2024 11:00 AM EST Clinical Support [facility] [address] [place] [address] Zoe Patrick RN Long-term current use of opiate analgesic 11/06/2024 Travel 11/04/2024 Travel 10/31/2024 2:00 PM EST Office Visit [facility] [address] [place] [address] Grisel Meraz MD Type 2 diabetes mellitus without complication, with long-term current use of insulin (CMS/HCC) (Primary Dx); Dysphagia, unspecified type; Boil, arm 10/31/2024 Refill [facility] [address] [place] [address] Grisel Meraz MD 10/31/2024 Travel 10/31/2024 Refill [facility] [address] [place] [address] Grisel Meraz MD B-cell lymphoma of intra-abdominal lymph nodes, unspecified B-cell lymphoma type (CMS/HCC) 10/24/2024 Telephone [facility] [address] [place] [address] Grisel Meraz MD Med Refill 10/24/2024 Telephone [facility] [address] [place] [address] Grisel Meraz MD Nurse Triage 10/21/2024 Refill [facility] [address] [place] [address] Grisel Meraz MD 10/18/2024 Orders Only GENERIC EXTERNAL DATA DEPARTMENT Provider, Generic External Data 10/16/2024 Refill [facility] [address] [place] [address] Grisel Meraz MD 10/09/2024 Orders Only GENERIC EXTERNAL DATA DEPARTMENT Provider, Generic External Data 09/27/2024 Orders Only On License Of [facility] Information Management [address] [place] [phone] Provider, MD Silverio from Last 3 Months Immunizations Name Administration [...] 11:30 AM EDT Office Visit [facility] [address] [place] [address] Grisel Meraz MD [address] [place] [address] 01/09/2025 3:00 PM EDT Office Visit [facility] [address] [place] [address] Antonella Mccord, OD [address] [place] [address] 02/27/2025 3:00 PM EDT Clinical Support [facility] [address] [place] [address] Zoe Patrick, TREVER [address] [place], [place] [phone] Health Maintenance Due Date Last Done Comments [...] Comments POCT ROSELYN-14 URINE DRUG SCREEN Routine 12/25/2024 3:27 PM EDT Multiple joint pain T4, FREE Routine 12/04/2024 12:10 PM EDT TSH W/REFLEX TO FT4 Routine 12/04/2024 1 2:10 PM EDT Type 2 diabetes mellitus without complication, with long-term current use of insulin ([facility]) RHEUMATOID FACTOR Routine 12/04/2024 12: 10 PM EDT Swelling of left thumb C-REACTIVE PROTEIN Routine 12/04/2024 12 :10 PM EDT Swelling of left thumb SED RATE BY MODIFIED WESTERGREN Routine 12/04/2024 12:10 PM EDT Swelling of left thumb URIC ACID Routine 12/04/2024 12:10 PM EDT Swelling of left thumb POCT GLYCATED HEMOGLOBIN, TOTAL Routine 12/04/2024 11:43 AM EDT Type 2 diabetes mellitus without complication, with long-term current use of insulin ([facility]) POCT GLUCOSE Routine 12/04/2024 11:43 AM EDT Type 2 diabetes mellitus without complication, with long-term current use of insulin ([facility]) GLUCOSE, WHOLE BLOOD Routine 11/22/2024 2:59 PM [...] 2 VIEWS Routine 09/26/2024 9:20 AM EST BI MAMMOGRAM SCREENING BILATERAL Routine 11/16/2023 [...] Recently Relevant to Health Maintenance Results * POCT ROSELYN-14 Urine Drug Screen (12/25/2024 3:27 PM EDT) Only the most recent of2 resultswithin the time period is included. THC Positive Urine Urine specimen obtained by clean catch procedure / Unknown 12/25/2024 3:27 PM EDT Narrative Zoe Patrick RN - 12/25/2024 3:27 PM EDT Lot# [id number] Exp: 04-23-26 Grisel Meraz MD POINT OF CARE TEST ENTER/EDIT ORDERABLES Final Result * (ABNORMAL) TSH W/Reflex to FT4 (12/04/2024 12:10 PM EDT) Pathologist [facility] TSH reflex Free T4 4.25(H) 0.32 - 4.0 uIU/mL [facility] Blood Venous blood specimen / Unknown 12/04/2024 12:10 PM EDT 12/04/2024 2:05 PM EDT Grisel Meraz MD LAB BLOOD ORDERABLES Final Re sult Performing Organization Address [facility] Co de Phone Number [facility] [address] [place] [phone] * (ABNORMAL) Sed Rate by Modified Westergren (12/04/2024 12:10 PM EDT) Pathologist [facility] Erythrocyte Sedimentation Rate 53(H) 0 - 20 MM/HR [facility] Comment:Patients with polycy themia and many hemoglobin abnormalitiesmay have depressed sed rates whereas patients with anemiamay have elevated sed rates. Blood Venous blood specimen / Unknown 12/04/2024 12:10 PM EDT 12/04/2024 2:05 PM EDT Grisel Meraz MD LAB BLOOD ORDERABLES Final Re sult Performing Organization Address [facility] Co de Phone Number [facility] [address] [place] [phone] * Rheumatoid Factor (12/04/2024 12:10 PM EDT) Rheumatoid Factor <13.0 <15.0 IU/mL [facility] Blood Venous blood specimen / Unknown 12/04/2024 12:10 PM EDT 12/04/2024 2:05 PM EDT us Grisel Meraz MD LAB BLOOD ORDERABLES Final Re sult Performing Organization Address City/[facility]/ZIP Co de Phone Number [facility] [address] [place] [phone] * (ABNORMAL) C-reactive Protein (12/04/2024 12:10 PM EDT) C Reactive Protein 0.51(H) < or = 0.50 mg/dL [facility] Blood Venous blood specimen / Unknown 12/04/2024 12:10 PM EDT 12/04/2024 2:05 PM EDT us Grisel Meraz MD LAB BLOOD ORDERABLES Final Re sult Performing Organization Address [facility]/ZIP Co de Phone Number [facility] [address] [place] [phone] * Uric acid (12/04/2024 12:10 PM EDT) Uric Acid 3.4 2.4 - 5.7 mg/dL [facility] Blood Venous blood specimen / Unknown 12/04/2024 12:10 PM EDT 12/04/2024 2:05 PM EDT us Grisel Meraz MD LAB BLOOD ORDERABLES Final Re sult Performing Organization Address City/[facility]/ZIP Co de Phone Number [facility] [address] [place] [phone] * T4, Free (12/04/2024 12:10 PM EDT) Only the most recent of2 resultswithin the time period is included. Pathologist [facility] Free T4 (Free Thyroxine) 1.02 0.71 - 1.85 ng/dL [facility] 12/04/2024 12:1 0 PM EDT 12/04/2024 2:05 PM EDT us Grisel Meraz MD LAB BLOOD ORDERABLES Final Re sult [facility] [address] [place] [phone] * (ABNORMAL) POCT HGB A1C (12/04/2024 11:43 AM EDT) [facility] Hemoglobin A1C 8.1(A) 4.0 - 6.0 % QC Media Lot # [id number] Lot# Expiration Date Blood 12/04/2024 11:4 3 AM EDT us Grisel Meraz MD POINT OF CARE TEST ENTER/EDIT ORDERABLES Final Result * (ABNORMAL) POCT Glucose (12/04/2024 11:43 AM EDT) Only the most recent of2 resultswithin the time period is included. Pathologist [facility] Glucose Blood, POC 402(A) 60 - 200 mg/dL [employer] Lot # [id number] Lot# Expiration Date 73,025 Blood Capillary blood specimen / Unknown 12/04/2024 11:43 AM EDT us Grisel Meraz MD POINT OF CARE TEST ENTER/EDIT ORDERABLES Final Result * (ABNORMAL) Glucose, Whole Blood (11/22/2024 2:59 PM EDT) Only the most recent of4 resultswithin the time period is included. [facility] Glucose, Whole Blood 219(H) 60 - 115 mg/dL [facility] Comment:METER #: [id number] Testing performed in the Endocrinology Department [address] , [address], [place]. 11/22/2024 2:59 PM EDT 11/22/2024 3:03 PM EDT Generic External Data Provider LAB BLOOD ORDERAB LES Final Result Performing Organization Address [facility] Co de Phone Number [facility] [address] [place] [phone] * Thyroid Peroxidase Antibodies (11/22/2024 11:46 AM EDT) Pathologist [facility] Thyroid Peroxidase Antibodies <1 <9 IU/mL [facility] Comment:THIS TEST WAS PERFOR MED AT:[address] [place] [id number] FARFAN MD 11/22/2024 11:4 6 AM EDT 11/22/2024 11:46 AM EDT Generic External Data Provider LAB BLOOD ORDERAB LES Final Result Performing Organization Address [facility] Co de Phone Number [facility] [address] [place] [phone] * (ABNORMAL) ALT (11/22/2024 11:46 AM EDT) Alanine Aminotransferase 34(H) 0 - 31 U/L [facility] 11/22/2024 11:4 6 AM EDT 11/22/2024 11:46 AM EDT us Generic External Data Provider LAB BLOOD ORDERAB LES Final Result Performing Organization Address [facility] Co de Phone Number [facility] [address] [place] [phone] * (ABNORMAL) AST (11/22/2024 11:46 AM EDT) Aspartate Amino Transferase 32(H) 5 - 31 U/L [facility] 11/22/2024 11:4 6 AM EDT 11/22/2024 11:46 AM EDT Generic External Data Provider LAB BLOOD ORDERAB LES Final Result Performing Organization Address City/[facility]/ZIP Co de Phone Number [facility] [address] [place] [phone] * (ABNORMAL) TSH (11/22/2024 11:46 AM EDT) Thyroid Stimulating Hormone 4.55(H) 0.32 - 4.0 uIU/mL [facility] Comment:Note: A sustained TS H level above 2.5 uIU/mL may warrant further investigation. TSH 3rd Generation ([facility]) 11/22/2024 11:4 6 AM EDT 11/22/2024 11:46 AM EDT Generic External Data Provider LAB BLOOD ORDERAB LES Final Result Performing Organization Address [facility] Co de Phone Number [facility] [address] [place] [phone] * Lipid Panel, Standard (11/22/2024 11:46 AM EDT) Triglycerides 137 <150 mg/dL [facility] Comment:Desirable Triglyceri de: less than 150 mg/dLBorderline High Triglyceride 150-199 mg/dLHigh Triglyceride: 200-499 mg/dLVery High Triglyceride: greater than or equal to 5OO mg/dL Cholesterol 159 <200 mg/dL [facility] Comment:Desirable Cholestero l: less than 200 mg/dLBorderline High Cholesterol: 200-239 mg/dLHigh Cholesterol: greater than 239 mg/dL LDL Cholesterol Calculated 78 <100 mg/dL [facility] Comment:Desirable LDL: less than 100 mg/dLNear Optimal/Above Optimal LDL: 110- 129 mg/dLBorderline High LDL: 130-159 mg/dLHigh LDL: 160-189 mg/dLVery High LDL: greater than or equal to 190 mg/dL HDL Cholesterol 54 >40 mg/dL [facility] Comment:Desirable HDL: great er than 40 mg/dL Note: This HDL assay may give artificially low results in patients with liver disease. 11/22/2024 11:4 6 AM EDT 11/22/2024 11:46 AM EDT us Generic External Data Provider LAB BLOOD ORDERAB LES Final Result [facility] [address] [place], [place] [phone] * (ABNORMAL) Basic Metabolic Panel (11/22/2024 11:46 AM EDT) Sodium 143 135 - 145 mmol/L [facility] Potassium 4.0 3.3 - 5.1 mmol/L [facility] Chloride 111(H) 96 - 108 mmol/L [facility] Carbon Dioxide 26 22 - 29 mmol/L [facility] Anion Gap 10(L) 12 - 20 [facility] Urea Nitrogen (BUN) 19(H) 9 - 16 mg/dL [facility] Creatinine, Serum 0.67 0.5 - 1.4 mg/dL [facility] Estimated Glomerular Filt Rate >60 [facility] Comment:Chronic Kidney Disea se: Estimated GFR < 60 mL/min/1.86u7Uwpyif Kidney Disease: Estimated GFR < 15 mL/min/1.73m2 Glucose 24(LL) 60 - 115 mg/dL [facility] Comment:Critical value for t est(s): GLU Results called to and readback by: Damaris Lau calling: DONALDO Date: 11/22/2024Time: 1404 Calcium 9.4 8.4 - 10.2 mg/dL [facility] 11/22/2024 11:4 6 AM EDT 11/22/2024 11:46 AM EDT Generic External Data Provider LAB BLOOD ORDERAB LES Final Result Performing Organization Address [facility] Co de Phone Number [facility] [address] [place] [phone] * Albumin, Random Urine W/Creatinine (11/22/2024 11:22 AM EDT) Creatinine, Urine 123.70 mg/dL [facility] Microalbumin Urine 16.0 mg/L [facility] Microalbum Creatinine Ratio Ur 12.9 <30 ug/mg cr [facility] Comment:Albumin/Creatinine R atio Reference Ranges: Normal: < 30 ug/mg creatinine Microalbuminuria: 30 - 300 ug/mg creatinineClinical Albuminuria: > 300 ug/mg creatinine 11/22/2024 11:2 2 AM EDT 11/22/2024 12:34 PM EDT Generic External Data Provider LAB URINE ORDERAB LES Final Result Performing Organization Address [facility] Co de Phone Number [facility] [address] [place] [address] [phone] * Polysomnography (11/12/2024) Grisel Meraz MD [facility] ORDERABLES Final Result * XR Chest 2 Views (09/26/2024 9:20 AM EST) Anatomical Region Laterality Modality Chest Radiographic Sherita ging us Historical Provider IMG XR PROCEDURES Final R esult * BI Mammogram Screening Bilateral (11/16/2023) Anatomical Region Laterality Modality Breast Bilateral Mammography us Grisel Meraz MD IMG BI PROCEDURES Final Resul t * HEPATITIS C AB W/REFL TO HCV RNA, QN, PCR (12/03/2021 12:00 AM EDT) HEPATITIS C ANTIBODY NON-REACT MICHAEL NON-REACT MICHAEL [facility] INDEX 0.01 <1.00 [facility] Comment: ?? HCV antibody was non-reactive. There is no laboratory ?? evidence of HCV infection. ?? In most cases, no further action is required. However, if recent HCV exposure is suspected, a test for HCV RNA (test code 60138) is suggested. ?? For additional information please refer to http://[employer].Locai/faq/EEA58k9 (This link is being provided for informational/ educational purposes only.) ?? 12/03/2021 Grisel Meraz MD HISTORICAL/NON ORDERABLE LABS Final Result Performing Organization Address [facility] Co de Phone Number [facility] [address] [place] [address], * HIV 1/2 ANTIGEN/ANTIBODY,FOURTH GENERATION W/RFL (12/03/2021 12:00 AM EDT) HIV-1/2 ANTIGEN AND ANTIBODIES, 4TH GENERATION W/ REFLEX NON-REACT MICHAEL NON-REACT MICHAEL [facility] Comment: HIV-1 antigen and HIV-1/HIV-2 [...] ? For additional information please refer to http://[employer].Locai/faq/MJF856 (This link is being provided for informational/ educational purposes only.) ? The performance of this assay has not been clinically validated in patients less than 2 years old. ?? 12/03/2021 us Grisel Meraz MD LAB BLOOD ORDERABLES Final Re sult Performing Organization Address [facility] de Phone Number [facility] [address] [place] [address], * HPV E6/E7 RFLX SONIA 16 18/45 (04/18/2019 11:40 AM EDT) HPV 16 RNA Test not performed [facility] HPV 18/45 RNA Test not performed [facility] HPV mRNA E6/E7 Not Detected NOT DETECTED [facility] Comment: This test was performed using the APTIMA(R) HPV Assay ([employer] This assay detects E6/E7 viral messenger RNA (mRNA) from 14 high-risk HPV types (16,18,31,33,35,39,45,51, 52,56,58,59,66,68). For additional information please refer to: http://education.Locai/faq/PND913n8 (This link is being provided for informational/ educational purposes only.) The analytical performance characteristics of this assay have been determined by [facility] [place], [place]. The modifications have not been cleared or approved by the FDA. This assay has been validated pursuant to the CLIA regulations and is used for clinical purposes. Please note: ??Effective 05/16/2016, HPV testing will be performed using [employer]'s APTIMA test which targets mRNA. Detecting mRNA instead of DNA, as in older methods, offers significant improvements in specificity. ADDITIONAL TESTING Not indicated () [facility] Comment: Test Performed by Michelle Kamara, [facility] [place], [address] [place] [address] Jorje Hendrickson M.D., Ph.D., Director of Laboratories , CLIA [id number] 04/18/2019 11:4 0 AM EDT us Grisel Meraz MD HISTORICAL/NON ORDERABLE LABS Final Result [facility] [address] [place] [address], * Hm Colonoscopy (11/22/2016) Colonoscopy Normal Normal Narrative Vianey Ross - 11/22/2016 Recommended 5 year follow up us Historical Provider HEALTH MAINTENANCE Final Result from Last 3 Months or Most Recently Relevant to Health Maintenance Insurance A[employer]NA MEDICARE REPLACEMENT [facility] Advance Directives Documents on File Type Date Recorded Patient Director Manufacturing Engineering Expl anation Advance Directives and Livin g Will 11/09/2023 3:59 PM HCP Care Teams Water Pump Operator Relationship Specialty Start Date End Date Grisel Meraz MD [address] [place] [address] PCP - General Family Medicine 03/06/19
--- OUTSIDE RECORDS SUMMARY | 2024-12-25 16:40 | XMS_ITS | Encounter Summary ---
Author Organization [employer] Address [address] [facility] [address] [place] [address] Care Team Providers Care Information Security Name Role Phone Grisel Meraz MD Primary Care Provider [phone] Encounter Details Date Type Department Care Team ([facility] st Contact Info) Description 09/06/2024 Orders Only [facility] [address] [place] [address] Grisel Meraz MD [address] [place] [address] Boils of multiple sites (Primary Dx) Social [...] Description 01/02/2025 11:30 AM EDT Office Visit [facility] [address] [place] [address] Grisel Meraz MD [address] [place] [address] 01/09/2025 3:00 PM EDT Office Visit [facility] [address] [place] [address] Flex, Antonella, OD [address] [place] [address] 02/27/2025 3:00 PM EDT Clinical Support [facility] [address] [place] [address] Zoe Patrick, RN [address] [place] [address] documented as of this encounter Visit Diagnoses Diagnosis Boils of multiple sites- Primary documented in this encounter Additional Health Concerns Assessment Noted Time PHQ-9 Depression Total Score: 21 023 11:24 AM EST documented as of this encounter Care Teams Information Security Relationship Specialty Start Date End Date Grisel Meraz MD [address] [place] [address] PCP - General Family Medicine 03/06/19 documented as of this encounter
--- OUTSIDE RECORDS SUMMARY | 2024-12-25 16:40 | XMS_ITS | Encounter Summary ---
Author Organization [employer] Address [address] [address] Care Team Providers Care Pipe Fitter Welding Name Role Phone Grisel Meraz MD Primary Care Provider [phone] Reason for Visit * Reason Onset Date Comments triage 08/16/2022 Encounter Details Date Type Department Care Team ([facility] Contact Info) Description 08/16/2022 Telephone [facility] CH[facility] MED & PEDS [address] [place] [address] Grisel Meraz MD [address] [place] [address] triage Social History Tobacco Use Types Packs/Day [...] Upcoming Encounters Date Type Department Care Team ([facility] Contact Info) Description 01/02/2025 11:30 AM EDT Office Visit [facility] CH[facility] MED & PEDS [address] [place] [address] Grisel Meraz MD [address] [place] [address] 01/09/2025 3:00 PM EDT Office Visit [facility] OPTOMETRY [address] [place] [address] Antonella Mccord, OD [address] [place] [address] 02/27/2025 3:00 PM EDT Clinical Support [facility] MED & PEDS [address] [place] [address] Zoe Patrick, TREVER [address] [place] [address] documented as of this encounter Visit Diagnoses Not on filedocumented in this encounter Care Teams Pipe Fitter Welding Relationship Specialty Start Date End Date Grisel Meraz MD [address] [place] [address] PCP - General Family Medicine 03/06/19 documented as of this encounter
--- OUTSIDE RECORDS SUMMARY | 2024-12-25 16:40 | XMS_ITS | Clinical Summary ---
Author Organization [facility] Address [address] [place] [address] Phone Care Team Providers Care Director Process Engineering Name Role Phone Grisel Meraz MD Primary [...] Problem Noted Date Diagnosed Date Non-Hodgkin's lymphoma ([facility] V24, [facility] V28 ) 09/29/2022 Encounters Date Type Department Care Team Description 09/26/2024 3:17 AM EST - 09/26/2024 4:34 AM EST Emergency [facility] [address] [place] [address] Yeast infection (Primary Dx); Hyperglycemia Discharge Disposition: Home or Self Care from Last 3 Months Immunizations Name Administration Dates Next Due Moderna SARS-CoV-2 COVID-19, mRNA, LNP-S, preservative free 02/11/2021,01/14/2021 Medical History Medical History Date Comments Diabetes mellitus ([facility] [place] V24, [facility] V28) Colon cancer ([facility] [place] V24, [facility] [place] V28) Family History Medical History Relation Name Comments [...] Description 02/24/2025 3:30 PM EDT Office Visit [facility] Hematology Oncology [address] [place] [phone] Nirmal Cooper MD [address] [place] [address] Health Maintenance Due Date Last Done Comments [...] age to complete this topic Meningococcal B Vaccine Aged Out No l onger eligible based on patient's age to complete [...] BLOOD Routine 09/26/2024 2: 43 AM EST COMPREHENSIVE METABOLIC PANEL STAT 09/25/2024 7:30 PM EST LIPID PANEL Routine 09/06/2023 HEPATITIS C SCREENING Routine 11/21/2022 HM HIV [...] Signed Date: 09/26/2024 08:07 ET Workstation ID: [id number] Transcribed By: Self Edit Transcribed Date: 09/26/2024 [...] Signed Date: 09/26/2024 08:07 ET Workstation ID: [id number] Transcribed By: Self Edit Transcribed Date: 09/26/2024 08:06 ET Yun GALLAGHER IMG XR PROCEDURES Final Result * (ABNORMAL) POCT Glucose, blood (09/26/2024 2:43 AM EST) Glucose POCT 232(H) 70 - 100 mg/dL 09/26/2024 2:44 AM EST [facility] Blood Capillary blood specimen / Unknown 09/26/2024 2:43 AM EST 09/26/2024 2:45 AM EST us Generic Provider Poct LAB POINT OF CARE TEST DOCKED DEVICE UNSOLICITED RESULTS Final Result [facility] [address] [place] [address], * (ABNORMAL) Comprehensive metabolic panel (09/25/2024 7:30 PM EST) Pathologist [facility] Sodium 131(L) 133 - 145 mmol/L LAB CHEMISTRY METHOD 09/25/2024 8:22 PM [facility] Potassium 4.1 3.5 - 5.5 mmol/L LAB CHEMISTRY METHOD 09/25/2024 8:22 PM [facility] Chloride 100 96 - 110 mmol/L LAB CHEMISTRY METHOD 09/25/2024 8:22 PM [facility] CO2 28 21 - 32 mmol/L LAB CHEMISTRY METHOD 09/25/2024 8:22 PM [facility] Anion Gap 3 3 - 11 LAB CHEMISTRY METHOD 09/25/2024 8:22 PM [facility] Glucose 310(H) 70 - 100 mg/dL LAB CHEMISTRY METHOD 09/25/2024 8:22 PM [facility] BUN 11 5 - 25 mg/dL LAB CHEMISTRY METHOD 09/25/2024 8:22 PM [facility] Creatinine 0.76 0.50 - 1.10 mg/dL LAB CHEMISTRY METHOD 09/25/2024 8:22 PM [facility] eGFR 94 >=60 mL/min/1. 73m2 LAB CHEMISTRY METHOD 09/25/2024 8:22 PM [facility] Comment:Calculation based on the??Chronic Kidney Disease Epidemiology Collaboration (CKD-EPI) equation refit??without adjustment for race. BUN/Creatinine Ratio 14.5 LAB CHEMISTRY METHOD 09/25/2024 8:22 PM [facility] Calcium 9.3 8.5 - 10.5 mg/dL LAB CHEMISTRY METHOD 09/25/2024 8:22 PM [facility] AST (SGOT) 33 10 - 42 unit/L LAB CHEMISTRY METHOD 09/25/2024 8:22 PM [facility] ALT (SGPT) 46 10 - 60 unit/L LAB CHEMISTRY METHOD 09/25/2024 8:22 PM [facility] Alkaline Phosphatase 103 42 - 121 unit/L LAB CHEMISTRY METHOD 09/25/2024 8:22 PM [facility] Total Protein 7.9 6.0 - 8.0 g/dL LAB CHEMISTRY METHOD 09/25/2024 8:22 PM [facility] Albumin 4.1 3.2 - 5.0 g/dL LAB CHEMISTRY METHOD 09/25/2024 8:22 PM [facility] Total Bilirubin 0.6 0.0 - 1.4 mg/dL LAB CHEMISTRY METHOD 09/25/2024 8:22 PM [facility] Blood Venous blood specimen / Unknown Venipuncture / Unknown 09/25/2024 7:30 PM EST 09/25/2024 7:37 PM EST us Savage Frank DO LAB BLOOD ORDERABLES Final Resu lt [facility] [address] [place] [address], [place] [phone] * Lipid panel (09/06/2023) LDL/HDL Ratio 0 Triglycerides 0 mg/dL Cholesterol 0 mg/dL HDL 0 mg/dL LDL Cholesterol 0 mg/dL Blood Venous blood specimen / Unknown [facility] Provider LAB BLOOD ORDERABLES Prema l Result * Hepatitis C Screening (11/21/2022) Pathologist [facility] Hepatitis C Screening Abstracted [facility] Provider HEALTH MAINTENANCE Final Result * HIV Screening (12/03/2021) Pathologist [facility] HIV Screening Abstracted [facility] Provider HEALTH MAINTENANCE Final Result * Hemoglobin A1c (12/03/2021) Pathologist [facility] Hemoglobin A1C 0.0 % Blood Venous blood specimen / Unknown [facility] Provider LAB BLOOD ORDERABLES Prema l Result from Last 3 Months or Most Recently Relevant to Health Maintenance Insurance * Guarantor: Za Mauro Account Type Relation to Patient Date of Phone Billing Address Personal/Family Self [address] [place] [phone] [facility] MEDICARE ADVANTAGE MEDICAID - [place] Care Teams Director Process Engineering Relationship Specialty Start Date End Date Grisel Meraz MD [address] [place] [address] PCP - General 09/16/22
--- OUTSIDE RECORDS SUMMARY | 2024-12-25 16:40 | XMS_ITS | Clinical Summary ---
Author Organization [facility] Address [address] [place] [address] Care Team Providers Care Psych Social Worker Name Role Phone Grisel Meraz MD Primary Care Provider [phone] Allergies Active Allergy Reactions Criticality Noted Date [...] tablet by mouth daily. 0 07/08/2022 Active Marbury-3 Fatty Acids (Fish Oil) 1000 MG CAPS [...] age to complete this topic Care Teams Psych Social Worker Relationship Specialty Start Date End Date Grisel Meraz MD [address] [place], [place] [id number] PCP - General Pediatrics 09/16/22
--- OUTSIDE RECORDS SUMMARY | 2024-12-25 16:40 | XMS_ITS ---
Author Organization [facility] Address [address] [place] [address] Care Team Providers Care Corporate Trainer Name Role Phone Grisel Meraz MD Primary Care Provider [phone] Active Problems Problem Noted Date Diagnosed Date Non-Hodgkin's lymphoma 09/29/2022 Current Oncology Plans No current plan information found. Past Plans ONCOLOGY TREATMENT Plan Name Start Date Discontinue Date Treatment Medications Discontinue Reason Plan Provider Cycles [facility] BCN OP R-CHOP [id number] (R IV/SC) 3 11/07/2023 acetaminophen (TYLENOL)albuterol (PROVENTIL)cycloPHOSpham [...] treatments are documented for this patient in [facility]. Treatments may have been administered in another system. Lifetime Dose Tracking * Chemical Lifetime Dose Automatic Entry Manual Entr y Doxorubicin 297.672 mg/m2 (504 mg) 297.672 mg/m2 (504 mg) 0 mg/m2 (0 mg)
--- OUTSIDE RECORDS SUMMARY | 2024-12-25 16:40 | XMS_ITS | Encounter Summary ---
Author Organization [facility] Address [address] [place] [address] Care Team Providers Care Tire Technician Name Role Phone Grisel Meraz MD Primary Care Provider [phone] Encounter Details Date Type Department Care Team Description 11/01/2022 Social Work [facility] Oncology Services [address] [place] [address] Grabiel Silva [facility] Social History Tobacco Use Types Packs/Day Years [...] on filedocumented in this encounter Care Teams Tire Technician Relationship Specialty Start Date End Date Grisel Meraz MD [address] [facility] [place] [address] PCP - General Pediatrics 09/16/22 documented as of this encounter
--- OUTSIDE RECORDS SUMMARY | 2024-12-25 16:40 | XMS_ITS | Encounter Summary ---
Author Organization [employer] Address [address] [address] Care Team Providers Care Bilingual Administrative Assistant Name Role Phone Grisel Meraz MD Primary Care Provider [phone] Encounter Details Date Type Department Care Team (Latest Contact Info) Description 07/06/2022 Abstract [facility] CONVERSIONS Dental, Provider, DDS Social [...] Description 01/02/2025 11:30 AM EDT Office Visit [facility] CHC MED & PEDS [address] [place] [address] Grisel Meraz MD [address] [place] [address] 01/09/2025 3:00 PM EDT Office Visit [facility] OPTOMETRY [address] [place] [address] Antonella Mccord, OD [address] [place] [address] 02/27/2025 3:00 PM EDT Clinical Support [facility] CHC MED & PEDS [address] [place] [address] Zoe Patrick RN [address] [place] [address] documented as of this encounter Visit Diagnoses Not on filedocumented in this encounter Care Teams Bilingual Administrative Assistant Relationship Specialty Start Date End Date Grisel Meraz MD [address] [place] [address] PCP - General Family Medicine 03/06/19 documented as of this encounter
--- OUTSIDE RECORDS SUMMARY | 2024-12-25 16:40 | XMS_ITS | Encounter Summary ---
Author Organization [employer] Address [address] [place] [address] Care Team Providers Care Senior Research Scientist Name Role Phone Grisel Meraz MD Primary Care Provider [phone] Reason for Visit * Reason Comments Med Refill Encounter Details Date Type Department Care Team ([facility] Contact Info) Description 09/14/2022 Refill [facility] MEDICINE [address] [place] [address] Sadie Wayne MD [address] [place], [place] [phone] Social History Tobacco Use Types Packs/Day Years [...] Department Care Team (Late Contact Info) Description 01/02/2025 11:30 AM EDT Office Visit [facility] CHC MED & PEDS [address] [place], [place] [phone] Grisel Meraz MD [address] [place], [place] [phone] 01/09/2025 3:00 PM EDT Office Visit [facility] OPTOMETRY [address] [place] [address] Antonella Mccord OD [address] [place] [address] 02/27/2025 3:00 PM EDT Clinical Support [facility] CHC MED & PEDS [address] [place] [address] Zoe Patrick, RN [address] [place], [place] [phone] documented as of this encounter Visit Diagnoses Not on filedocumented in this encounter Care Teams Senior Research Scientist Relationship Specialty Start Date End Date Grisel Meraz MD [address] [place], [place] [phone] PCP - General Family Medicine 03/06/19 documented as of this encounter
--- OUTSIDE RECORDS SUMMARY | 2024-12-25 16:41 | XMS_ITS | Encounter Summary ---
Author Organization [employer] Address 75 [facility] [address]t [place] [address] Care Team Providers Care Window Shade Cloth Sewer Name Role Phone Grisel Meraz MD Primary Care Provider [phone] Encounter Details Date Type Department Care Team (Latest Contact Info) Description 12/25/2024 Travel Social History Tobacco Use Types Packs/Day [...] Description 01/02/2025 11:30 AM EDT Office Visit [facility] CHC MED & PEDS [address] [place] [address] Grisel Meraz MD [address] [place] [address] 01/09/2025 3:00 PM EDT Office Visit [facility] OPTOMETRY [address] [place] [address] Flex, Antonella, OD [address] [place] [address] 02/27/2025 3:00 PM EDT Clinical Support [facility] MED & PEDS [address] [place] [address] Zoe Patrick, TREVER [address] [place] [address] documented as of this encounter Visit Diagnoses Not on filedocumented in this encounter Additional Health Concerns Assessment Noted Time PHQ-9 Depression Total Score: 0 12/05/19 25 11:11 AM EDT documented as of this encounter Care Teams Window Shade Cloth Sewer Relationship Specialty Start Date End Date Grisel Meraz MD [address] [place] [address] PCP - General Family Medicine 03/06/19 documented as of this encounter
--- OUTSIDE RECORDS SUMMARY | 2024-12-25 16:41 | XMS_ITS | Encounter Summary ---
Author Organization [employer] Address 75 [facility] [address]t [place] [address] Care Team Providers Care 3Rd Pressman Name Role Phone Grisel Meraz MD Primary Care Provider [phone] Encounter Details Date Type Department Care Team ([facility] Contact Info) Description 09/27/2024 Orders Only [facility] Information Management [address] [place], [place] [phone] Provider, MD Silverio Social History Tobacco Use [...] Description 01/02/2025 11:30 AM EDT Office Visit [facility] MED & PEDS [address] [place] [address] Grisel Meraz MD [address] [place] [address] 01/09/2025 3:00 PM EDT Office Visit [facility] OPTOMETRY [address] [place] [address] FlexAntonella montgomery, OD [address] [place] [address] 02/27/2025 3:00 PM EDT Clinical Support [facility] MED & PEDS [address] [place] [address] Zoe Patrick, TREVER [address] [place], [place] [phone] documented as of this encounter Procedures Procedure [...] documented as of this encounter Care Teams 3Rd Pressman Relationship Specialty Start Date End Date Grisel Meraz MD [address] [place] [address] PCP - General Family Medicine 03/06/19 documented as of this encounter
--- OUTSIDE RECORDS SUMMARY | 2024-12-25 16:41 | XMS_ITS | Encounter Summary ---
Author Organization [facility] Address [address] [place] [address] Care Team Providers Care Straight Ruling Machine Operator Name Role Phone Grisel Meraz MD Primary Care Provider [phone] Encounter Details Date Type Department Care Team Description 12/20/2022 Social Work [facility] Oncology Services [address] [place] [address] Grabiel Silva [facility] Social History Tobacco Use Types [...] on filedocumented in this encounter Care Teams Straight Ruling Machine Operator Relationship Specialty Start Date End Date Grisel Meraz MD [address] [facility] [address] PCP - General Pediatrics 09/16/22 documented as of this encounter
--- OUTSIDE RECORDS SUMMARY | 2024-12-25 16:41 | XMS_ITS | Encounter Summary ---
Author Organization [employer] Address 75 [facility] 7t [place] [address] Care Team Providers Care Political Advisor Name Role Phone Grisel Meraz MD Primary Care Provider [phone] Reason for Visit * Reason Comments controlled substance treatment Encounter Details Date Type Department Care Team (Latest Contact Info) Description 12/25/2024 3:15 PM EDT Clinical Support [facility] CHC MED & PEDS [address] [place] [address] Zoe Patrick, TREVER [address] [place] [address] Multiple joint pain Social History Tobacco Use Types Packs/Day Years [...] Progress Notes * Zoe Patrick RN - 12/25/2024 3:15 PM EDT S: LINE MAINTENANCE TECHNICIAN [place]. Patient prescribed Tramadol 50mg q6hr PRN for lymphoma. Rx was prescribed by oncologist,but they will not continue and PCP will take over prescribing Tramadol (see note from PCP 10/31/24).Patient states she takes medication only as needed. Patient denies nicotine, ETOH or illicit drugs use. [facility] sometimes uses THC gummies for pain. Currently rates pain a 7/10 located all over the body. [facility] medication is about 70% effective at alleviating pain when taken. Last PCP f/u 12/04/24. Chronic pain group pamphlet given, patient not interested. No questions/ concerns at this time. O: VENEER SORTER verified today. Rx last filled 11/07/24. Pill count performed, patient has 3 pills, 0 expected. Utox performed, positive for THC only, as expected. A: LINE MAINTENANCE TECHNICIAN Agreement Initiation: Opioid dependence related to chronic pain. P: Patient to continue taking medication only as prescribed; Next LINE MAINTENANCE TECHNICIAN RV appointment scheduled for 02/27/25 @ 3pm. F/u with PCP 01/02/25. Appt reminder given. F/U sooner PRN. Patient verbalized understanding and agreed to plan. documented in this encounter Plan of Treatment Upcoming Encounters Date Type Department Care Team (Late st Contact Info) Description 01/02/2025 11:30 AM EDT [facility] Visit [facility]C MED [facility] PEDS [address] [place] [address] Grisel Meraz MD [address] [place] [address] 01/09/2025 3:00 PM EDT Office Visit [facility] OPTOMETRY [address] [place] [address] FlexRickn, OD [address] [place] [address] 02/27/2025 3:00 PM EDT Clinical Support [facility] MED & PEDS [address] [place] [address] Zoe Patrick RN [address] [place] [address] documented as of this encounter Procedures Procedure Name Priority Date/Time Associated Diagnosis Comments POCT ROSELYN-14 URINE DRUG SCREEN Routine 12/25/2024 3:27 PM EDT Multiple joint pain documented in this encounter Results * POCT ROSELYN-14 Urine Drug Screen (12/25/2024 3:27 PM EDT) THC Positive Urine Urine specimen obtained by clean catch procedure / Unknown 12/25/2024 3:27 PM EDT Narrative Zoe Patrick RN - 12/25/2024 3:27 PM EDT Lot# [id number] Exp: 04-23-26 Grisel Meraz MD POINT OF CARE TEST ENTER/EDIT ORDERABLES Final Result documented in this encounter Visit Diagnoses Diagnosis Multiple joint pain Pain in joint, multiple sites documented in this encounter Additional Health Concerns Assessment Noted Time PHQ-9 Depression Total Score: 0 12/05/19 25 11:11 AM EDT documented as of this encounter Care Teams Political Advisor Relationship Specialty Start Date End Date Grisel Meraz MD [address] [place] [address] PCP - General Family Medicine 03/06/19 documented as of this encounter
--- OUTSIDE RECORDS SUMMARY | 2024-12-25 16:41 | XMS_ITS | Encounter Summary ---
Author Organization [employer] Address [address] [address] Care Team Providers Care Automation Machine Operator Name Role Phone Grisel Meraz MD Primary Care Provider [phone] Reason for Visit * Reason Onset Date Comments Record Request 04/05/2023 Encounter Details Date Type Department Care Team ([facility] Contact Info) Description 04/05/2023 Telephone [facility] CHC MED & PEDS [address] [place] [address] Grisel Meraz MD [address] [place] [address] Record Request Social History Tobacco Use Types [...] 11:24 AM EDT TC from Michelle with [facility]. States had placed requests for physician Summary form , along with copies of last Physical , last office visit , and med list . documented in this encounter Plan of Treatment Upcoming Encounters Date Type Department Care Team (Late st Contact Info) Description 01/02/2025 11:30 AM EDT Office Visit [facility] MED & PEDS [address] [place] [address] Grisel Meraz MD [address] [place] [address] 01/09/2025 3:00 PM EDT Office Visit [facility] OPTOMETRY [address] [place] [address] Antonella Mccord, OD [address] [place] [address] 02/27/2025 3:00 PM EDT Clinical Support [facility] MED & PEDS [address] [place] [address] Zoe Patrick, TREVER [address] [place] [address] documented as of this encounter Visit Diagnoses Not on filedocumented in this encounter Additional Health Concerns Assessment Noted Time PHQ-9 Depression Total Score: 21 023 11:24 AM EST documented as of this encounter Care Teams Automation Machine Operator Relationship Specialty Start Date End Date Grisel Meraz MD [address] [place] [address] PCP - General Family Medicine 03/06/19 documented as of this encounter
--- OUTSIDE RECORDS SUMMARY | 2024-12-25 16:41 | XMS_ITS | Encounter Summary ---
Author Organization [employer] Address 75 [facility] [address]t [place] [address] Care Team Providers Care Senior Search Marketing Analyst Name Role Phone Grisel Meraz MD Primary Care Provider [phone] Encounter Details Date Type Department Care Team ([facility] Contact Info) Description 12/25/2024 Telephone [facility] CHC MED & PEDS [address] [place] [address] Zoe Patrick, RN [address] [place] [address] Social History Tobacco Use Types Packs/Day Years [...] Telephone Encounter - Zoe Patrick RN - 12/25/2024 3:09 PM EDT .What FLUORESCENT LAMP REPLACER Tier would you like this patient to be? Tier 1 = HIGH RISK, Monthly FLUORESCENT LAMP REPLACER visits Tier 2 = MODerate RISK, Q3 Month visits Tier 3 = LOW RISK = Q4-6 month visits documented in this encounter Plan of Treatment Upcoming Encounters Date Type Department Care Team (Late st Contact Info) Description 01/02/2025 11:30 AM EDT Office Visit [facility] MED & PEDS [address] [place] [address] Grisel Meraz MD [address] [place] [address] 01/09/2025 3:00 PM EDT Office Visit [facility] OPTOMETRY [address] [place] [address] Antonella Mccord, OD [address] [place] [address] 02/27/2025 3:00 PM EDT Clinical Support [facility] MED & PEDS [address] [place] [address] Zoe Patrick RN [address] [place] [address] documented as of this encounter Visit Diagnoses Not on filedocumented in this encounter Additional Health Concerns Assessment Noted Time PHQ-9 Depression Total Score: 0 12/05/19 25 11:11 AM EDT documented as of this encounter Care Teams Senior Search Marketing Analyst Relationship Specialty Start Date End Date Grisel Meraz MD [address] [place] [address] PCP - General Family Medicine 03/06/19 documented as of this encounter
--- OUTSIDE RECORDS SUMMARY | 2024-12-25 16:41 | XMS_ITS | Encounter Summary ---
Author Organization [employer] Address [address] [facility] [address], [place] [address] Care Team Providers Care Scooping Machine Tender Name Role Phone Grisel Meraz MD Primary Care Provider [phone] Reason for Visit * Reason Comments Med Refill Encounter Details Date Type Department Care Team ([facility] Contact Info) Description 12/20/2024 Refill [facility] CHC MED & PEDS [address] [place] [address] Grisel Meraz MD 505 [place] [address] Type 2 diabetes mellitus without complication, with long-term current use of insulin ([facility]) Social History Tobacco Use Types Packs/Day Years [...] 11:30 AM EDT Office Visit [facility] MED & PEDS [address] [place] [address] Grisel Meraz MD 505 [place] [address] 01/09/2025 3:00 PM EDT Office Visit [facility] OPTOMETRY [address] [place] [address] Antonella Mccord, OD [address] [place] [address] 02/27/2025 3:00 PM EDT Clinical Support [facility] MED & PEDS [address] [place] [address] Zoe Patrick, TREVER 505 [place] [address] documented as of this encounter Visit Diagnoses Diagnosis Type 2 diabetes mellitus without complication, with long-term current use of insulin ([facility]) documented in this encounter Additional Health Concerns Assessment Noted Time PHQ-9 Depression Total Score: 0 12/05/19 25 11:11 AM EDT documented as of this encounter Care Teams Scooping Machine Tender Relationship Specialty Start Date End Date Grisel Meraz MD [address] [place] [address] PCP - General Family Medicine 03/06/19 documented as of this encounter
--- OUTSIDE RECORDS SUMMARY | 2024-12-25 16:41 | XMS_ITS | Encounter Summary ---
Author Organization [employer] Address [address] [address] Care Team Providers Care Jacquard Card Cutter Name Role Phone Grisel Meraz MD Primary Care Provider [phone] Reason for Visit * Reason Onset Date Comments Appointment Request 02/22/2023 Encounter Details Date Type Department Care Team ([facility] Contact Info) Description 02/22/2023 Telephone [facility] CHC MED & PEDS [address] [place] [address] Grisel Meraz MD [address] [place] [address] Appointment Request Social History Tobacco Use Types [...] are being required. Please contact pt at [phone] Syrian Speaker documented in this encounter Plan of Treatment Upcoming Encounters Date Type Department Care Team (Late st Contact Info) Description 01/02/2025 11:30 AM EDT Office Visit [facility] MED & PEDS [address] [place] [address] Grisel Meraz MD [address] [place] [address] 01/09/2025 3:00 PM EDT Office Visit [facility] OPTOMETRY [address] [place] [address] Antonella Mccord, OD [address] [place] [address] 02/27/2025 3:00 PM EDT Clinical Support [facility] MED & PEDS [address] [place] [address] Zoe Patrick, TREVER [address] [place] [address] documented as of this encounter Visit Diagnoses Not on filedocumented in this encounter Additional Health Concerns Assessment Noted Time PHQ-9 Depression Total Score: 21 023 11:24 AM EST documented as of this encounter Care Teams Jacquard Card Cutter Relationship Specialty Start Date End Date Grisel Meraz MD [address] [place] [address] PCP - General Family Medicine 03/06/19 documented as of this encounter
--- OUTSIDE RECORDS SUMMARY | 2024-12-25 16:41 | XMS_ITS | Encounter Summary ---
Author Organization [employer] Address [address] [facility] 7 [place] [address] Care Team Providers Care Auto Clutch Specialist Name Role Phone Grisel Meraz MD Primary Care Provider [phone] Reason for Visit * Reason Onset Date Comments Med Refill 12/25/2024 Encounter Details Date Type Department Care Team ([facility] Contact Info) Description 12/25/2024 Refill [facility] MED & PEDS [address] [place] [address] Zoe Patrick, RN [address] [place] [address] B-cell lymphoma of intra-abdominal lymph nodes, unspecified [...] Upcoming Encounters Date Type Department Care Team ([facility] st Contact Info) Description 01/02/2025 11:30 AM EDT Office Visit [facility] MED & PEDS [address] [place] [address] Grisel Meraz MD [address] [place] [address] 01/09/2025 3:00 PM EDT Office Visit [facility] OPTOMETRY [address] [place] [address] Flex, Antonella, OD [address] [place] [address] 02/27/2025 3:00 PM EDT Clinical Support [facility] MED & PEDS [address] [place] [address] Zoe Patrick, TREVER [address] [place] [address] documented as of this encounter Visit Diagnoses Diagnosis B-cell lymphoma of intra-abdominal lymph nodes, unspecified B-cell lymphoma type (CMS/HCC) documented in this encounter Additional Health Concerns Assessment Noted Time PHQ-9 Depression Total Score: 0 12/05/19 25 11:11 AM EDT documented as of this encounter Care Teams Auto Clutch Specialist Relationship Specialty Start Date End Date Grisel Meraz MD [address] [place] [address] PCP - General Family Medicine 03/06/19 documented as of this encounter
== END 2024-12-25 14:14 | disposition home or self-care (01) ==
LOC: HO.ENCR 13:54
PROVIDERS: PCP Pediatrics; Visit Provider Registered Nurse Diabetes Educator
DX: E11.65 Type 2 diabetes mellitus with hyperglycemia (principal); Z79.4 Long term (current) use of insulin

== ENCOUNTER → 2024-12-25 13:53 | Outpatient (BNVA) | payer MEDICARE, MEDICAID, SELFPAY | PROVIDERS: PCP Pediatrics; Visit Provider Registered Nurse Diabetes Educator | DX: E11.65 Type 2 diabetes mellitus with hyperglycemia (principal); Z79.4 Long term (current) use of insulin | CPT/HCPCS: 99211 ==

== ENCOUNTER 2025-01-23 14:10 | Outpatient (AMB) | payer OTHER, MEDICAID, SELFPAY ==
--- OUTSIDE RECORDS SUMMARY | 2025-01-23 14:19 | XMS_ITS | Encounter Summary ---
Author Organization [employer] Address [address] [facility] 7t [place] [address] Care Team Providers Care Blueprint Developer Name Role Phone Grisel Meraz MD Primary Care Provider [phone] Encounter Details Date Type Department Care Team ([facility] Contact Info) Description 07/11/2023 Abstract [facility] MEDICINE [address] [place] [address] Grisel Meraz MD [address] [place], [place] [id number] Social History Tobacco Use Types Packs/Day Years [...] Upcoming Encounters Date Type Department Care Team ([facility] st Contact Info) Description 02/27/2025 3:00 PM EDT Clinical Support [facility] MED & PEDS [address] [place] [address] Zoe Patrick RN [address] [place] [address] 03/06/2025 10:00 AM EDT Office Visit [facility] MED & PEDS [address] [place] [address] Grisel Meraz MD [address] [place] [address] 03/25/2025 1:45 PM EDT Office Visit [facility] OPTOMETRY [address] [place] [address] TarLolita jay, OD [address] [place] [address] documented as of this encounter Procedures Procedure [...] documented as of this encounter Care Teams Blueprint Developer Relationship Specialty Start Date End Date Grisel Meraz MD [address] [place] [address] PCP - General Family Medicine 03/06/19 documented as of this encounter
--- NOTE | 2025-01-23 14:29 | A.OFFVIS_ITS ---
Intake Intake Visit Reasons: 30 min Pattern Filer Required: Yes Pattern Filer Language: Forensic Materials Engineer Services: Pattern Filer Offered & Declined Accompanied by: Self / Same As Patient Allergies acetaminophen [From Percocet] Allergy (Severe, Verified 10/09/24 15:30) Anaphylaxis oxycodone [From Percocet] Allergy (Severe, Verified 10/09/24 15:30) Anaphylaxis Vicodin Allergy (Unknown, Uncoded 10/09/24 15:30) Anaphylaxis HPI Comprehensive Diabetes Asmnt Most Recent Diabetes Results: 2 Microalb/Creat Ratio 12.9 ug/mg cr (<30) 11/22/24 Cholesterol 159 mg/dL (<200) 11/22/24 HDL Cholesterol 54 mg/dL (>40) 11/22/24 Triglycerides 137 mg/dL (<150) 11/22/24 Creatinine 0.67 mg/dL (0.5-1.4) 11/22/24 Blood Urea Nitrogen 19 mg/dL (9-16) H 11/22/24 Sodium 143 mmol/L (135-145) 11/22/24 Potassium 4.0 mmol/L (3.3-5.1) 11/22/24 Chloride 111 mmol/L (96-108) H 11/22/24 Carbon Dioxide 26 mmol/L (22-29) 11/22/24 Calcium 9.4 mg/dL (8.4-10.2) 11/22/24 AST 32 U/L (5-31) H 11/22/24 ALT 34 U/L (0-31) H 11/22/24 Total Protein 8.3 g/dL (6.5-8.0) H 03/04/21 Albumin 4.4 g/dL (3.5-5.0) 03/04/21 [facility] Medical History Cellulitis Right groin pain Arthritis Elevated LFTs Fibromyalgia Bunion, left foot Migraine Asthma Seasonal allergies Mood disorder Joint pain Hyperlipidemia LDL goal <100 Type 2 diabetes mellitus with polyneuropathy Type 2 diabetes mellitus with hyperglycemia Surgical History Hx of colonoscopy (~2019) Hx of cholecystectomy Hx of foot surgery History of bilateral carpal tunnel release Hx of cataract surgery Family History Father Hypertension Mother Diabetes Colon cancer Brother Liver cancer Social History Household Members: Other Household Members Other:: Sister Alcohol intake: current Alcohol intake frequency: does not drink Patient Tobacco Use Status: Never used Tobacco Assessment & Plan Assessment & Plan (1) Type 2 diabetes mellitus with hyperglycemia: Code(s): E11.65 - Type 2 diabetes mellitus with hyperglycemia Qualifiers: Diabetes mellitus adjunct faculty for medical terminology insulin use: with adjunct faculty for medical terminology use Qualified Code(s): E11.65 - Type 2 diabetes mellitus with hyperglycemia; Z79.4 - parts counterman (current) use of insulin Plan: Patient presents for pump training for iLet pump and CGM training today. The following topics were reviewed today: -announcing meals iLet Alerts: ??? High Alert: 300 mg/dl ??? Low Alert: 75 mg/dl Patient reports that she is not eating, but she also has no meal announce mints for the past 14 days. Checked patient's infusion set site from last visit, no signs and symptoms of infection site has healed Called [facility] Medical case patient reports she has not received her pump supplies, [facility] reports that she is not due for next order until the end of February. Recommended to patient if sensors and insulin pump supplies have not been delivered to her sister's house that she call [facility] Medical back. Patient given [facility] Medical contact number Patient has follow-up appointment with endocrine [facility] CENTER OFFICER February 2025 will be due for her next A1c Patient will follow-up with community educator in 3 months Instructed patient to only use room temperature insulin, how to load cartridge or fill pod, with insulin. Fill tubing and cannula (if applicable) Troubleshooting after starting new pod or inserting new insulin set: Occlusion, adhesive tape sensitivity, redness Check BG 2 hours after site change Reviewed Safety information: Importance of a backup plan, for manual injections, proper prescriptions and emergency supplies ketone strips, and rules for testing for ketones Patient understands the basic concepts of pump therapy, how to give insulin for meals and snacks, how to troubleshoot for hyper and hypoglycemia. Patient will follow up with [facility] as instructed Patient will contact [facility] with questions or concerns, patient given IT number to support in any technical issues related to insulin pump Portions of this note were created using voice recognition software, please excuse any words or phrases that may have been misinterpreted. Coding Level of Care Code Est Pt Level 1 (67781) Diagnoses Type 2 diabetes mellitus with hyperglycemia, with long-term current use of insulin E11.65; Z79.4 Diabetes mellitus fci insulin use: with fci use
== END 2025-01-23 14:35 | disposition home or self-care (01) ==
LOC: HO.ENCR 14:11
PROVIDERS: PCP Pediatrics; Visit Provider Registered Nurse Diabetes Educator
DX: E11.65 Type 2 diabetes mellitus with hyperglycemia (principal); Z79.4 Long term (current) use of insulin

== ENCOUNTER → 2025-01-23 14:10 | Outpatient (BNVA) | payer MEDICARE, MEDICAID, SELFPAY | PROVIDERS: PCP Pediatrics; Visit Provider Registered Nurse Diabetes Educator | DX: E11.65 Type 2 diabetes mellitus with hyperglycemia (principal); Z79.4 Long term (current) use of insulin | CPT/HCPCS: 99211 ==

== ENCOUNTER 2025-02-19 15:12 | Outpatient (AMB) | payer MEDICARE, MEDICAID, SELFPAY ==
--- NOTE | 2025-02-19 08:34 | A.OFFVIS_ITS ---
Vital Signs 02/19/25 15:23 Height 5 ft 5 in Weight 167 lb 8.821 oz BMI 27.9 BP 112/68 Blood Pressure Location Rt brachial Position Sitting Pulse 99 Pulse Source Pulse Oximeter Pulse Oximetry (%) 100 Oxygen Delivery Method Room Air Intake Visit Reasons: T1DM Intake Note: Patient presents today for a follow-up on Type 1 Diabetes Mellitus/iLet Insulin Pump: Last Diabetic eye exam was on: DUE Last Podiatry exam was on: Does not see a Porcelain Slusher Most recent HbA1c: 8.9%, 02/19/2025 Random Glucose: 383 mg/dL, Today Ripening Room Attendant Required: Yes Ripening Room Attendant Language: Behavioral Health Director Services: Ripening Room Attendant Present Ripening Room Attendant Name: YUSUF Linares/NEO MCKEON Information Interpreted: non-clinical & clinical Accompanied by: Self / Same As Patient Allergies acetaminophen (From Percocet) Allergy (Severe, Verified 02/19/25 15:25) Anaphylaxis oxycodone (From Percocet) Allergy (Severe, Verified 02/19/25 15:25) Anaphylaxis Vicodin Allergy (Unknown, Uncoded 02/19/25 15:25) Anaphylaxis HPI Comments Details: 54-year-old female Type 2 diabetic diagnosed approximately 2017 who is now back on an ilet insulin pump after a several month hiatus due to having had site infections at both the pump insertion set and sensor site. She was last seen in clinic 11/22/2024: She was found to have nasal colonization of staph which was not MRSA and she was advised to use a Hibiclens wash once weekly and instructed to use antibacterial soap. Rigid sterile technique with inserting sensor and pump was reviewed with the patient extensively. She was not able to purchased the Hibiclens but has been using antibacterial soap. She has had no further infection in the site looks clean. Current diabetes regime pioglitazone 30 mg ilet pump Most recent A1c 02/19/25 8.9%, 10/09/24 12.1%: 07/24/24 8.4% down from previous A1c 04/23/2024 11%. Unable to download specific data from islet pump. Dexcom shows average of 190 20.7% very high 31.2% high 47.4 in range 0.5 low 0.3 very low She has a getting an average of 62.9 units of insulin daily 41.4 units basal Today in the office her pump has stopped infusing. Her reservoir contains cloudy insulin and there is a large bubble in the reservoir. Denies retinopathy. Last exam: she has been referred but missed appt to [facility] Dr. Urbina She has rescheduled with another provider Has neuropathy: Symptoms: + numbness, tingling and cramping in legs No Nephropathy:09/2023 microalbumin 8.0 10/29 eGFR>60 on low dose radha-1 Has HLD on statin 10/29 ldl 78 She complains of some shortness of breath intermittent but not at present. Non exertional. She denies chest pain. Denies symptoms of claudication. Has strong family hx of Type 2 DM Exercise - walks [facility] Medical History Cellulitis Right groin pain Arthritis Elevated LFTs Fibromyalgia Bunion, left foot Migraine Asthma Seasonal allergies Mood disorder Joint pain Hyperlipidemia LDL goal <100 Type 2 diabetes mellitus with polyneuropathy Type 2 diabetes mellitus with hyperglycemia Surgical History Hx of colonoscopy (~2018) Hx of cholecystectomy Hx of foot surgery History of bilateral carpal tunnel release Hx of cataract surgery Family History Father Hypertension Mother Diabetes Colon cancer Brother Liver cancer Social History Household Members: Other Household Members Other:: Sister Alcohol intake: current Alcohol intake frequency: does not drink Patient Tobacco Use Status: Never used Tobacco Physical Exam Vital Signs: Last Vital Signs Pulse 99 02/19/25 15:23 Pulse Ox 100 02/19/25 15:23 Oxygen Delivery Method Room Air 02/19/25 15:23 BMI result Body Mass Index 27.9 Const Other: Absence of Cushingoid features. Absence of acromegalic features. Neck exam reveals nl size thyroid about 15 gms. No thyroid nodules palpable. Heart S1 S2, Reg R/R. No M/R G. Skin exam reveals absence of vitiligo or acanthosis nigricans. skin on abdomen no areas of cellulitis, No edema Results AMB Hemoglobin A1c AMB Hemoglobin A1c 8.9 % Last Edit by YUSUF Linares on 02/19/25 15:41 Assessment & Plan Assessment & Plan (1) Type 2 diabetes mellitus with polyneuropathy: Code(s): E11.42 - Type 2 diabetes mellitus with diabetic polyneuropathy Category: Medical Plan: The patient is a 54-year-old type 2 diabetic on an islet insulin pump along with pioglitazone. Her current reservoir has cloudy insulin with a large air bubble. She is running high overnight and may need a factory recent. She is going home immediately and we will replace both reservoir an insulin. If for some reason the pump is not infusing insulin, she will start her backup plan which is 38 units of Lantus along with injections of short-acting insulin. She will return to clinic in 1 week to see Kelly BELL. If she is unable to get her pump started and working properly she will contact us. Orders: Orders AMB Hemoglobin A1c Today E11.42 - Type 2 diabetes mellitus with diabetic polyneuropathy Coding Level of Care Code Est Pt Level 3 (74512) Complex EM visit Add On G2211 Diagnoses Type 2 diabetes mellitus with polyneuropathy E11.42 Time Spent (min) 15 Comment Time spent reviewing labs/provider notes, face to face, chart doc
[2025-02-19 15:23] VITALS: BP 112/68; PULSE 99; O2SAT 100; BMI 27.9
[2025-02-19 15:31] LABS: Glucose, Whole Blood 383 mg/dL (60-115)
--- OUTSIDE RECORDS SUMMARY | 2025-02-19 17:32 | XMS_ITS | Encounter Summary ---
Author Organization [employer] Address [address] [facility] 7t [place] [address] Care Team Providers Care Women'S Basketball Coach Name Role Phone Grisel Meraz MD Primary Care Provider [phone] Encounter Details Date Type Department Care Team ([facility] Contact Info) Description 07/11/2023 Abstract [facility] MEDICINE [address] [place] [address] Grisel Meraz MD [address] [place], [place] [phone] Social History Tobacco Use Types Packs/Day Years [...] Upcoming Encounters Date Type Department Care Team ([facility] st Contact Info) Description 02/27/2025 3:00 PM EDT Telemedicine [facility] MED & PEDS [address] [place] [address] Zoe Patrick RN [address] [place] [address] 03/06/2025 10:00 AM EDT Office Visit [facility] MED & PEDS [address] [place] [address] Grisel Meraz MD [address] [place] [address] 03/25/2025 1:45 PM EDT Office Visit [facility] OPTOMETRY [address] [place], [place] [phone] TarLolita jay, OD [address] [place] [address] documented as of this encounter Procedures Procedure [...] documented as of this encounter Care Teams Women'S Basketball Coach Relationship Specialty Start Date End Date Begolli, Grisel, MD [address] [place] [address] PCP - General Family Medicine 03/06/19 documented as of this encounter
== END 2025-02-19 15:41 | disposition home or self-care (01) ==
LOC: HO.ENCR 15:13
PROVIDERS: PCP Pediatrics; Visit Provider Nurse Practitioner Adult Health
DX: E11.42 Type 2 diabetes mellitus with diabetic polyneuropathy (principal)
CPT/HCPCS: 99213; G2211

== ENCOUNTER → 2025-02-19 15:12 | Outpatient (BNVA) | payer MEDICARE, MEDICAID, SELFPAY | PROVIDERS: PCP Pediatrics; Visit Provider Nurse Practitioner Adult Health | DX: E11.42 Type 2 diabetes mellitus with diabetic polyneuropathy (principal); Z96.41 Presence of insulin pump (external) (internal); Z79.4 Long term (current) use of insulin | CPT/HCPCS: 82947; 83036; 99212 ==

== ENCOUNTER 2025-02-26 14:25 | Outpatient (AMB) | payer MEDICARE, MEDICAID, SELFPAY ==
--- NOTE | 2025-02-26 15:03 | MHC.AMDMED ---
Intake Intake Visit Reasons: DM Insurance Account Assistant Required: Yes Insurance Account Assistant Language: Plastics Bench Mechanic Services: Insurance Account Assistant Offered & Declined Accompanied by: Self / Same As Patient Allergies acetaminophen (From Percocet) Allergy (Severe, Verified 02/19/25 15:25) Anaphylaxis oxycodone (From Percocet) Allergy (Severe, Verified 02/19/25 15:25) Anaphylaxis Vicodin Allergy (Unknown, Uncoded 02/19/25 15:25) Anaphylaxis HPI Comprehensive Diabetes Asmnt Most Recent Diabetes Results: Microalb/Creat Ratio, (<30) 12.9 ug/mg cr 11/22/24 Cholesterol, (<200) 159 mg/dL 11/22/24 HDL Cholesterol, (>40) 54 mg/dL 11/22/24 Triglycerides, (<150) 137 mg/dL 11/22/24 Creatinine, (0.5-1.4) 0.67 mg/dL 11/22/24 BUN, (9-16) 19 mg/dL H 11/22/24 Sodium, (135-145) 143 mmol/L 11/22/24 Potassium, (3.3-5.1) 4.0 mmol/L 11/22/24 Chloride, (96-108) 111 mmol/L H 11/22/24 Carbon Dioxide, (22-29) 26 mmol/L 11/22/24 Calcium, (8.4-10.2) 9.4 mg/dL 11/22/24 AST, (5-31) 32 U/L H 11/22/24 ALT, (0-31) 34 U/L H 11/22/24 Total Protein, (6.5-8.0) 8.3 g/dL H 03/04/21 Albumin, (3.5-5.0) 4.4 g/dL 03/04/21 [facility] Medical History Cellulitis Right groin pain Arthritis Elevated LFTs Fibromyalgia Bunion, left foot Migraine Asthma Seasonal allergies Mood disorder Joint pain Hyperlipidemia LDL goal <100 Type 2 diabetes mellitus with polyneuropathy Type 2 diabetes mellitus with hyperglycemia Surgical History Hx of colonoscopy (~2019) Hx of cholecystectomy Hx of foot surgery History of bilateral carpal tunnel release Hx of cataract surgery Family History Father Hypertension Mother Diabetes Colon cancer Brother Liver cancer Social History Household Members: Other Household Members Other:: Sister Alcohol intake: current Alcohol intake frequency: does not drink Patient Tobacco Use Status: Never used Tobacco Assessment & Plan Assessment & Plan (1) Type 2 diabetes mellitus with hyperglycemia: Code(s): E11.65 - Type 2 diabetes mellitus with hyperglycemia Qualifiers: Diabetes mellitus intermodal customer service insulin use: with long-term use Qualified Code(s): E11.65 - Type 2 diabetes mellitus with hyperglycemia; Z79.4 - snf (current) use of insulin Plan: Patient presents for pump training for iLet pump and CGM training today. Patient does not have consistent data in [employer] software. Patient's insulin pump disconnected from cell phone in needed software update The following topics were reviewed today: Keeping iLet connected to cell phone Following instructions of alerts on screens iLet Alerts: ??? High Alert: 300 mg/dl ??? Low Alert: 75 mg/dl Patient is iLet pump software updated at today's visit Reconnected patient's pump to iLet chad Instructed patient the importance of changing infusion set if glucose level is running above target for more than 4 hours Patient given copy of iLet alerts in Malian and in Irish Instructed patient to only use room temperature insulin, how to load cartridge or fill pod, with insulin. Fill tubing and cannula (if applicable) Troubleshooting after starting new pod or inserting new insulin set: Occlusion, adhesive tape sensitivity, redness Check BG 2 hours after site change Reviewed Safety information: Importance of a backup plan, for manual injections, proper prescriptions and emergency supplies ketone strips, and rules for testing for ketones Patient understands the basic concepts of pump therapy, how to give insulin for meals and snacks, how to troubleshoot for hyper and hypoglycemia. Patient will follow up with [facility] as instructed Patient will contact [facility] with questions or concerns, patient given IT number to support in any technical issues related to insulin pump Portions of this note were created using voice recognition software, please excuse any words or phrases that may have been misinterpreted. Coding Level of Care Code Est Pt Level 1 (79831) Diagnoses Type 2 diabetes mellitus with hyperglycemia, with long-term current use of insulin E11.65; Z79.4 Diabetes mellitus long-term insulin use: with long-term use
--- OUTSIDE RECORDS SUMMARY | 2025-02-26 17:11 | XMS_ITS | Encounter Summary ---
Author Organization [employer] Address [address] [facility] 7t [place] [address] Care Team Providers Care General Helper Name Role Phone Grisel Meraz MD Primary Care Provider [phone] Encounter Details Date Type Department Care Team ([facility] Contact Info) Description 07/11/2023 Abstract [facility] MEDICINE [address] [place] [address] Grisel Meraz MD [address] [place], [place] [phone] Social History Tobacco Use Types Packs/Day Years [...] Upcoming Encounters Date Type Department Care Team ([facility] st Contact Info) Description 02/27/2025 3:00 PM EDT Telemedicine [facility] MED & PEDS [address] [place] [address] Zoe Patrick RN [address] [place] [address] 03/06/2025 10:00 AM EDT Office Visit [facility] MED & PEDS [address] [place] [address] Grisel Meraz MD [address] [place] [address] 03/25/2025 1:45 PM EDT Office Visit [facility] OPTOMETRY [address] [place], [place] [phone] TarLolita jay, OD [address] [place] [address] documented as of this encounter Procedures Procedure [...] documented as of this encounter Care Teams General Helper Relationship Specialty Start Date End Date Begolli, Grisel, MD [address] [place] [phone] PCP - General Family Medicine 03/06/19 documented as of this encounter
== END 2025-02-26 15:06 | disposition home or self-care (01) ==
LOC: HO.ENCR 14:25
PROVIDERS: PCP Pediatrics; Visit Provider Registered Nurse Diabetes Educator
DX: E11.65 Type 2 diabetes mellitus with hyperglycemia (principal); Z79.4 Long term (current) use of insulin

== ENCOUNTER → 2025-02-26 14:25 | Outpatient (BNVA) | payer MEDICARE, MEDICAID, SELFPAY | PROVIDERS: PCP Pediatrics; Visit Provider Registered Nurse Diabetes Educator | DX: E11.65 Type 2 diabetes mellitus with hyperglycemia (principal); Z79.4 Long term (current) use of insulin | CPT/HCPCS: 99211 ==

== ENCOUNTER 2025-03-13 14:28 | Outpatient (AMB) | payer MEDICARE, MEDICAID, SELFPAY ==
--- NOTE | 2025-03-13 14:32 | MHC.OFFVIS ---
Vital Signs 03/13/25 14:37 Height 5 ft 5 in Weight 169 lb 12.095 oz BMI 28.2 BP 100/70 Blood Pressure Location Rt brachial Position Sitting Pulse 86 Pulse Source Pulse Oximeter Pulse Oximetry (%) 96 Oxygen Delivery Method Room Air Intake Visit Reasons: DM Intake Note: Patient present today to follow up on Type 2 Diabetes Mellitus. Last Diabetic Eye exam: DUE Last Podiatry Visit: Does not see Director Business Travel Random Glucose: 84 mg/dl HgA1C: 8.9% 02/19/2025 Product Development Technician Required: Yes Product Development Technician Language: Die Polisher Services: Product Development Technician Present Product Development Technician Name: [facility] Information Interpreted: non-clinical & clinical Accompanied by: Self / Same As Patient Allergies acetaminophen (From Percocet) Allergy (Severe, Verified 03/13/25 14:38) Anaphylaxis oxycodone (From Percocet) Allergy (Severe, Verified 03/13/25 14:38) Anaphylaxis Vicodin Allergy (Unknown, Uncoded 03/13/25 14:38) Anaphylaxis Medication List - Last Reconciled 03/13/25 by Sudhakar Garcia MD acetone (urine) test (Ketostix strips) tid prn nausea, vomiting,illness, glucose over 250 albuterol sulfate 90 mcg/actuation inhalation alcohol swabs pad topical aripiprazole 5 mg PO DAILY blood sugar diagnostic As directed blood-glucose meter As directed for use with sensor failure dispense as one touch ultra chlorhexidine gluconate 4% (Hibiclens) shower once weekly using hibiclens from the neck downward topically; 30 days clonidine HCl 0.1 mg PO BID gabapentin 300 mg PO BID glucose (Dex4 Glucose) 12 grams (3 x 4 gram) PO Q15M PRN hydroxyzine HCl 50 mg PO BEDTIME insulin aspart (B3) pump cart 100 unit/mL (1.6 mL) (Fiasp Pumpcart) Infuse up to 90 units per day via insulin pump subcutaneously; Held on 07/11/24. Instructions: Doctor's Order insulin aspart (niacinamide) 100 unit/mL (3 mL) (Fiasp FlexTouch U-100 Insulin) 4 units for breakfast 8 units for lunch 6 units for supper subcutaneously 3 times a day; 30 days insulin glargine (Lantus Solostar U-100 Insulin) 38 units (0.38 mL) subcut DAILY 30 days lancets prn q 4 hours for pump failure for use with one touch meter lisinopril 2.5 mg PO QAM loratadine 10 mg PO QAM multivitamin 1 tab PO DAILY naproxen 500 mg PO BID omega 1-lqi-cjt-fish oil 1,000 (120-180) mg (Fish Oil) 1 cap PO DAILY OneTouch Ultra Test (blood sugar diagnostic) P.r.n. sensor failure every 4 hours NS oxybutynin chloride ER 5 mg PO DAILY pen needle, diabetic As directed five times a day pen needle, diabetic As directed qid pioglitazone 15 mg PO DAILY rosuvastatin 40 mg PO DAILY tramadol 50 mg PO Q6H PRN trazodone 100 mg PO BEDTIME venlafaxine ER 150 mg PO DAILY HPI Comments Details: 54-year-old female Type 2 diabetic diagnosed approximately 2017 who is now back on an ilet insulin pump after a several month hiatus due to having had site infections at both the pump insertion set and sensor site. She was last seen in clinic by Jeannie Villalobos NP on 02/19/25: She was found to have nasal colonization of staph which was not MRSA and she was advised to use a Hibiclens wash once weekly and instructed to use antibacterial soap. Rigid sterile technique with inserting sensor and pump was reviewed with the patient extensively. She was not able to purchased the Hibiclens but has been using antibacterial soap. She has had no further infection in the site looks clean. Current diabetes regime pioglitazone 15 mg ilet pump Most recent A1c 02/19/25 8.9%, 10/09/24 12.1%: 07/24/24 8.4% down from previous A1c 04/23/2024 11%. rare hypoglycemia Dexcom shows average of 167 GMI of 7.3 21.1% very high 31.2% high 32.6 in range 0.5 low 0.3 very low She has a getting an average of 62.9 units of insulin daily 41.4 units basal T. Denies retinopathy. Last exam:2-3 yrs ago has appt Has neuropathy: Symptoms: + numbness, tingling and cramping in legs No Nephropathy:09/2023 microalbumin 8.0 10/29 eGFR>60 on low dose radha-1 Has HLD on statin 10/29 ldl 78 She complains of some shortness of breath intermittent but not at present. Non exertional. She denies chest pain. Denies symptoms of claudication. Has strong family hx of Type 2 DM Exercise - walks PFSH Medical History Cellulitis Right groin pain Arthritis Elevated LFTs Fibromyalgia Bunion, left foot Migraine Asthma Seasonal allergies Mood disorder Joint pain Hyperlipidemia LDL goal <100 Type 2 diabetes mellitus with polyneuropathy Type 2 diabetes mellitus with hyperglycemia Surgical History Hx of colonoscopy (~2019) Hx of cholecystectomy Hx of foot surgery History of bilateral carpal tunnel release Hx of cataract surgery Family History Father Hypertension Mother Diabetes Colon cancer Brother Liver cancer Social History Household Members: Other Household Members Other:: Sister Alcohol intake: current Alcohol intake frequency: does not drink Patient Tobacco Use Status: Never used Tobacco Physical Exam Absence of Cushingoid features. Absence of acromegalic features. Neck exam reveals nl size thyroid about 15 gms. No thyroid nodules palpable. No carotid bruits present. Lungs CTA. Heart S1 S2, Reg R/R. No M/R/ G. Skin exam reveals absence of vitiligo or acanthosis nigricans. Abdominal exam reveals Soft NT/ND with NA BS. No organomegaly present. Neck Other: . Extrem Other: Visual exam of foot performed. No ulcerations or open lesions. No onchomycosis, no callouses.Pulses 2 + distally Sensation iloss to monofilament exam. Vibratory sensation sensed is idecreased with 128 Hz tuning fork Assessment & Plan Assessment & Plan (1) Type 2 diabetes mellitus with hyperglycemia: Code(s): E11.65 - Type 2 diabetes mellitus with hyperglycemia Category: Medical Qualifiers: Diabetes mellitus snf insulin use: with snf use Qualified Code(s): E11.65 - Type 2 diabetes mellitus with hyperglycemia; Z79.4 - MCFP (current) use of insulin Plan: This is a 53-year-old female with history of type 2 diabetes being treated with Actos and iLet pump with improved glycemic control and known microvascular complications namely neuropathy. Plan is continue the current management. We will have patient follow up with CDE in 2 months. We will stressed the patient need to announce meals. She complains of dry mouth and diffuse pain and has seen Rheumatology in the past I told her to schedule follow up with the primary care provider to discuss these complaints. I will also discontinue the pioglitazone as the patient is complaining of shortness of breath on exertion although I do not see any signs of congestive heart failure (2) History of hernia surgery: Code(s): Z98.890 - Other specified postprocedural states; Z87.19 - Personal history of other diseases of the digestive system Plan: Not addressed this visit Coding Level of Care Code Est Pt Level 4 (19869) Complex EM visit Add On G2211 Diagnoses Type 2 diabetes mellitus with hyperglycemia, with long-term current use of insulin E11.65; Z79.4 Diabetes mellitus snf insulin use: with superintendent container terminal use History of hernia surgery Z98.890; Z87.19
[2025-03-13 14:37] VITALS: BP 100/70; PULSE 86; O2SAT 96; BMI 28.2
--- OUTSIDE RECORDS SUMMARY | 2025-03-13 14:37 | XMS_ITS | Clinical Summary ---
Author Organization [facility] Address [address] [place] [address] Care Team Providers Care Edge Bonder Name Role Phone Grisel Meraz MD Primary Care Provider [phone] Allergies Active Allergy Reactions Criticality Noted Date [...] tablet by mouth daily. 0 07/08/2022 Active [place]-3 Fatty Acids (Fish Oil) 1000 MG CAPS [...] 78 04/10/2024 2:58 PM EDT Temperature 36.2 C (97.2 F) 04/10/2024 2:58 PM EDT Respiratory Rate 18 02/14/2023 9:00 AM EDT [...] Cancer Screening (Mammogram) 2022 Influenza Vaccine (#1) 2025 3, 10/14/2020, 05/30/2019, Additional history exists DTap / Tdap / Td (5 - Td or Tdap) 10/06/2030 10/06/2020, 06/27/2018, 12/23/2016, Additional history exists Hepatitis C Screening Completed 11/21/2022 RSV Ped < 20 months Aged Out No longe r eligible based on patient's age to complete this topic Care Teams Edge Bonder Relationship Specialty Start Date End Date Grisel Meraz MD [address] [place], [place] [id number] PCP - General Pediatrics 09/16/22
--- OUTSIDE RECORDS SUMMARY | 2025-03-13 14:37 | XMS_ITS | Clinical Summary ---
Author Organization [facility] Address [address] [place] [address] Phone Care Team Providers Care Digital Marketing Apprentice Name Role Phone Grisel Meraz MD Primary [...] LUNGS TWICE A DAY 12/22/19 23 Active fenofibrate (TRICOR) 48 mg tablet [...] SUBCUTANEOUSLY FOUR TIMES DAILY 09/25/19 21 Active lidocaine-carmne locaine (EMLA) 2.5-2.5 % cream Apply topically [...] total) by mouth daily. 06/10/20 22 Active rosuvastatin (CRESTOR) 40 mg tablet Take [...] NECESARIO FOR GAS PAIN/BLOATING 09/16/19 23 Active budesonide-fo rmoteroL (Symbicort) 160-4.5 mcg/actuation inhaler 09/14/19 23 Active topiramate (TOPAMAX) 25 mg tablet Take [...] 200 mg 64 tablet 2 08/15/20 Active doxycycline (VIBRAMYCIN) 100 mg capsule Take 1 capsule (100 mg total) by mouth 2 (two) times a day. 05/24/202024 Discontinued enoxaparin (LOVENOX) 40 mg/0.4 mL syringe 09/16/192024 Discontinued predniSONE (DELTASONE) 50 mg tablet Take 1 tablet (50 mg total) by mouth 2 (two) times a day. Taking on days 2-5 following each chemotherapy treatment day. 2024 Discontinued ondansetron (ZOFRAN) 8 mg tablet Take 1 tablet (8 mg total) by mouth every 12 hours as needed. 10/27/192024 Discontinued Active Problems Problem Noted Date Diagnosed Date Non-Hodgkin's lymphoma ([facility] V24, [facility] V28 ) 09/29/2022 Encounters Date Type Department Care Team Description 02/24/2025 3:30 PM EDT Office Visit [facility] Hematology Oncology [address] [place] [address] Nirmal Cooper MD Diffuse large B-cell lymphoma of intra-abdominal lymph nodes ([facility] V24, [facility] V28) (Primary Dx) from Last 3 Months Immunizations Name Administration Dates Next Due Moderna SARS-CoV-2 COVID-19, mRNA, LNP-S, preservative free 02/11/2021,01/14/2021 Medical History Medical History Date Comments Diabetes mellitus ([facility] V24, [facility] V28) Colon cancer ([facility] V24, [facility] V28) Family History Medical History Relation Name [...] Sign Reading Time Taken Comments Blood Pressure 110/72 02/24/2025 3:26 PM EDT Pulse 86 02/24/2025 3:26 PM EDT Temperature 36.5 C (97.7 F) 02/24/2025 3:26 PM EDT Respiratory Rate 17 09/26/2024 2:38 AM EST Oxygen Saturation 98% 02/24/2025 3:26 PM EDT Inhaled Oxygen Concentration - - Weight 78.9 kg (174 lb) 02/24/2025 3:26 PM EDT Height 170.2 cm (5' 7 ) 09/25/2024 6:01 PM EST Body Mass Index 27.25 09/25/2024 6:01 PM EST Plan of Treatment Upcoming Encounters Date Type Department Care Team (Late st Contact Info) Description 11/12/2025 3:30 PM EDT Office Visit [facility] Hematology Oncology [address] [place] [phone] Nirmal Cooper MD [address] [place] [address] Health Maintenance Due Date Last Done Comments Breast Cancer Screening 1972 Diabetes: Annual Foot Exam 1982 Diabetes: Annual Retina Eye Exam 1982 Hepatitis B Vaccines (1 of 3 - 19+ 3-dose series) 1991 Cervical Cancer Screening: Pap Smear 1993 Pneumococcal Vaccine: 50+ Years (2 of 2 - PCV) 03/10/2015 03/10/2014 Pneumococcal Vaccine: Pediatrics (0 to 5 Years) and At-Risk Patients (6 to 49 Years) (2 of 2 - PCV) 03/10/2015 03/10/2014 Colorectal Cancer Screening: Colonoscopy 08/16/2022 Social Influencers of Health Screening 08/16/2022 COVID-19 Vaccine (2023- season) 2024 10/27/2022, 12/13/2021, 02/11/2021, Additional history exists Diabetes: Annual Urine Albumin-Creatinine Ratio (uACR) 07/17/2024 Influenza Vaccine (#1) 2025 , 06/28/2023, 10/14/2020, Additional history exists Diabetes: Blood Sugar Control Test (HGBA1C) 06/05/2025 12/04/2024, 09/05/2024, 04/09/2024, Additional history exists Diabetes: Annual GFR (Glomerular Filtration Rate) 11/22/2025 11/22/2024, 09/25/2024, 08/06/2024, Additional history exists Depression Screening 12/04/2025 12/04/2024 Cholesterol Screening (Lipid Panel) 11/22/2029 11/22/2024, 09/06/2023, 09/06/2023 DTaP,Tdap,and Td Vaccines (5 - Td or Tdap) 10/06/2030 10/06/2020, 06/27/2018, 12/23/2016, Additional history exists HIV Screening Completed 12/03/2021, 12/03/2021 Hepatitis C Screening Completed 11/21/2022 Zoster Vaccines Completed 11/07/2024, 09/05/2024 HIB Vaccines [...] Diagnosis Comments CBC WITH AUTO DIFFERENTIAL Routine 02/20/2025 1:34 PM EDT Diffuse large B-cell lymphoma of intra-abdominal lymph nodes (CMS/HCC V24, CMS/HCC V28) BETA 2 MICROGLOBULIN, SERUM Routine 02/20/2025 1:34 PM EDT Diffuse large B-cell lymphoma of intra-abdominal lymph nodes (CMS/HCC V24, CMS/HCC V28) LACTATE DEHYDROGENASE Routine 02/20/2025 1:34 PM EDT Diffuse large B-cell lymphoma of intra-abdominal lymph nodes (CMS/HCC V24, CMS/HCC V28) CBC AND DIFFERENTIAL Routine 02/20/2025 1:34 PM EDT Diffuse large B-cell lymphoma of intra-abdominal lymph nodes (CMS/HCC V24, CMS/HCC V28) COMPREHENSIVE METABOLIC PANEL STAT 09/25/2024 7:30 PM EST LIPID PANEL Routine 09/06/2023 HEPATITIS C SCREENING Routine 11/21/2022 HIV SCREENING Routine 12/03/2021 HEMOGLOBIN A1C Routine 12/03/2021 from Last 3 Months or Most Recently Relevant to Health Maintenance Results * CBC auto differential (02/20/2025 1:34 PM EDT) WBC 6.2 4.8 - 10.8 K/mcL LAB HEMETOLOGY METHOD 02/20/2025 4:43 PM EDT [facility] RBC 4.50 3.80 - 4.80 M/mcL LAB HEMETOLOGY METHOD 02/20/2025 4:43 PM EDT [facility] Hemoglobin 12.8 11.5 - 16.0 g/dL LAB HEMETOLOGY METHOD 02/20/2025 4:43 PM EDT [facility] Hematocrit 39.2 35.0 - 47.0 % LAB HEMETOLOGY METHOD 02/20/2025 4:43 PM EDT [facility] MCV 86.5 79.0 - 98.0 FL LAB HEMETOLOGY METHOD 02/20/2025 4:43 PM EDT [facility] MCH 28.3 27.0 - 32.0 pcg LAB HEMETOLOGY METHOD 02/20/2025 4:43 PM EDT [facility] MCHC 32.7 32.0 - 37.0 g/dL LAB HEMETOLOGY METHOD 02/20/2025 4:43 PM [facility] RDW 12.9 11.0 - 15.0 % LAB HEMETOLOGY METHOD 02/20/2025 4:43 PM EDT [facility] Platelets 243 130 - 400 K/mcL LAB HEMETOLOGY METHOD 02/20/2025 4:43 PM [facility] MPV 10.8 7.0 - 11.0 FL LAB HEMETOLOGY METHOD 02/20/2025 4:43 PM [facility] NRBC 0.0 <1.0 % LAB HEMETOLOGY METHOD 02/20/2025 4:43 [facility] NRBC Absolute 0.00 <0.10 K/mcL LAB HEMETOLOGY METHOD 02/20/2025 4:43 PM [facility] Neutrophils Relative 53.8 % LAB HEMETOLOGY METHOD 02/20/2025 4:43 PM [facility] Lymphocytes Relative 34.4 % LAB HEMETOLOGY METHOD 02/20/2025 4:43 PM [facility] Monocytes Relative 6.8 % LAB HEMETOLOGY METHOD 02/20/2025 4:43 PM [facility] Eosinophils Relative 3.6 % LAB HEMETOLOGY METHOD 02/20/2025 4:43 PM [facility] Basophils Relative 1.1 % LAB HEMETOLOGY METHOD 02/20/2025 4:43 PM [facility] Immature Granulocytes Relative 0.3 % LAB HEMETOLOGY METHOD 02/20/2025 4:43 PM [facility] Neutrophils Absolute 3.32 1.50 - 7.00 K/mcL LAB HEMETOLOGY METHOD 02/20/2025 4:43 PM EDT [facility] Lymphocytes Absolute 2.12 1.00 - 5.00 K/mcL LAB HEMETOLOGY METHOD 02/20/2025 4:43 PM EDT [facility] Monocytes Absolute 0.42 0.20 - 1.00 K/[facility] LAB HEMETOLOGY METHOD 02/20/2025 4:43 PM EDT [facility] Eosinophils Absolute 0.22 0.00 - 0.50 K/[facility] LAB HEMETOLOGY METHOD 02/20/2025 4:43 PM EDT [facility] Basophils Absolute 0.07 0.00 - 0.20 K/mcL LAB HEMETOLOGY METHOD 02/20/2025 4:43 PM EDT [facility] Immature Granulocytes Absolute 0.02 0.00 - 0.03 K/[facility] LAB HEMETOLOGY METHOD 02/20/2025 4:43 PM EDT [facility] Blood Venous blood specimen / Unknown Venipuncture / Unknown 02/20/2025 1:34 PM EDT 02/20/2025 4:35 PM EDT Nirmal Cooper MD LAB BLOOD ORDERABLES Final R esult [facility] [address] [place] [address], * Lactate dehydrogenase (02/20/2025 1:34 PM EDT) LDH 244 120 - 246 unit/L LAB CHEMISTRY METHOD 02/20/2025 5:11 PM EDT [facility] Blood Venous blood specimen / Unknown Venipuncture / Unknown 02/20/2025 1:34 PM EDT 02/20/2025 4:34 PM EDT Nirmal Cooper MD LAB BLOOD ORDERABLES Final R esult Performing Organization Address City/[facility]/ZIP Co de Phone Number [facility] [address] [place] [address], [place] [phone] * Beta 2 microglobulin, serum (02/20/2025 1:34 PM EDT) [facility] Beta-2 Microglobulin 1.8 0.7 - 1.8 mg/L LAB CHEMISTRY METHOD 02/20/2025 5:19 PM EDT [facility] Blood Venous blood specimen / Unknown Venipuncture / Unknown 02/20/2025 1:34 PM EDT 02/20/2025 4:34 PM EDT Nirmal Cooper MD LAB BLOOD ORDERABLES Final R esult Performing Organization Address City/[facility]/ZIP Co de Phone Number [facility] [address] [place] [address], [place] [phone] * (ABNORMAL) Comprehensive metabolic panel (09/25/2024 7:30 PM EST) [facility] Sodium 131(L) 133 - 145 mmol/L LAB CHEMISTRY METHOD 09/25/2024 8:22 PM EST [facility] Potassium 4.1 3.5 - 5.5 mmol/L LAB CHEMISTRY METHOD 09/25/2024 8:22 PM EST [facility] Chloride 100 96 - 110 mmol/L LAB CHEMISTRY METHOD 09/25/2024 8:22 PM [facility] CO2 28 21 - 32 mmol/L LAB CHEMISTRY METHOD 09/25/2024 8:22 PM EST [facility] Anion Gap 3 3 - 11 LAB CHEMISTRY METHOD 09/25/2024 8:22 PM [facility] Glucose 310(H) 70 - 100 mg/dL LAB CHEMISTRY METHOD 09/25/2024 8:22 PM [facility] BUN 11 5 - 25 mg/dL LAB CHEMISTRY METHOD 09/25/2024 8:22 PM [facility] Creatinine 0.76 0.50 - 1.10 mg/dL LAB CHEMISTRY METHOD 09/25/2024 8:22 PM [facility] eGFR 94 >=60 mL/min/1. 73m2 LAB CHEMISTRY METHOD 09/25/2024 8:22 PM [facility] Comment:Calculation based on the Chronic Kidney Disease Epidemiology Collaboration (CKD-EPI) equation refit without adjustment for race. BUN/Creatinine Ratio 14.5 LAB CHEMISTRY METHOD 09/25/2024 8:22 PM [facility] Calcium 9.3 8.5 - 10.5 mg/dL LAB CHEMISTRY METHOD 09/25/2024 8:22 PM [facility] AST (SGOT) 33 10 - 42 unit/L LAB CHEMISTRY METHOD 09/25/2024 8:22 PM [facility] ALT (SGPT) 46 10 - 60 unit/L LAB CHEMISTRY METHOD 09/25/2024 8:22 PM [facility] Alkaline Phosphatase 103 42 - 121 unit/L LAB CHEMISTRY METHOD 09/25/2024 8:22 PM [facility] Total Protein 7.9 6.0 - 8.0 g/dL LAB CHEMISTRY METHOD 09/25/2024 8:22 PM [facility] Albumin 4.1 3.2 - 5.0 g/dL LAB CHEMISTRY METHOD 09/25/2024 8:22 PM [facility] Total Bilirubin 0.6 0.0 - 1.4 mg/dL LAB CHEMISTRY METHOD 09/25/2024 8:22 PM [facility] Blood Venous blood specimen / Unknown Venipuncture / Unknown 09/25/2024 7:30 PM EST 09/25/2024 7:37 PM EST us Tae Hyong Monika DO LAB BLOOD ORDERABLES Final Resu lt [facility] [address] [place] [address], * Lipid panel (09/06/2023) LDL/HDL Ratio 0 Triglycerides 0 mg/dL Cholesterol 0 mg/dL HDL 0 mg/dL LDL Cholesterol 0 mg/dL Blood Venous blood specimen / Unknown [facility] Provider LAB BLOOD ORDERABLES Prema l Result * Hepatitis C Screening (11/21/2022) Pathologist [facility] Hepatitis C Screening Abstracted [facility] Provider HEALTH MAINTENANCE Final Result * HIV Screening (12/03/2021) Pathologist [facility] HIV Screening Abstracted [facility] Provider HEALTH MAINTENANCE Final Result * Hemoglobin A1c (12/03/2021) Pathologist [facility] Hemoglobin A1C 0.0 % Blood Venous blood specimen / Unknown [facility] Provider LAB BLOOD ORDERABLES Prema l Result from Last 3 Months or Most Recently Relevant to Health Maintenance Insurance [place] - [place] [facility] [place] [id number] Care Teams Digital Marketing Apprentice Relationship Specialty Start Date End Date Grisel Meraz MD [address] [place] [phone] PCP - General 09/16/22
[2025-03-13 14:49] LABS: Glucose, Whole Blood 84 mg/dL (60-115)
== END 2025-03-13 15:15 | disposition home or self-care (01) ==
LOC: HO.ENCR 14:29
PROVIDERS: PCP Pediatrics; Visit Provider Internal Medicine Endocrinology, Diabetes & Metabolism
DX: E11.65 Type 2 diabetes mellitus with hyperglycemia (principal); Z79.4 Long term (current) use of insulin; Z98.890 Other specified postprocedural states; Z87.19 Personal history of other diseases of the digestive system
CPT/HCPCS: 99214; G2211

== ENCOUNTER → 2025-03-13 14:28 | Outpatient (BNVA) | payer MEDICARE, MEDICAID, SELFPAY | PROVIDERS: PCP Pediatrics; Visit Provider Internal Medicine Endocrinology, Diabetes & Metabolism | DX: E11.65 Type 2 diabetes mellitus with hyperglycemia (principal); Z79.4 Long term (current) use of insulin; Z98.890 Other specified postprocedural states; Z87.19 Personal history of other diseases of the digestive system | CPT/HCPCS: 82947; 99212 ==

== ENCOUNTER 2025-04-01 14:10 | Outpatient (AMB) | payer MEDICARE, MEDICAID, SELFPAY ==
--- NOTE | 2025-04-01 14:20 | MHC.OFFVIS ---
Vital Signs 04/01/25 14:26 Height 5 ft 5 in Weight 173 lb 6 oz BMI 28.8 BP 122/78 Blood Pressure Location Rt brachial Position Sitting Pulse 92 Pulse Source Pulse Oximeter Pulse Oximetry (%) 96 Oxygen Delivery Method Room Air Intake Visit Reasons: neuropathy pain Intake Note: Pain today 06/13 Coordinator Of Online Programs Required: Yes Coordinator Of Online Programs Language: Tower [employer] Services: Coordinator Of Online Programs Present Coordinator Of Online Programs Name: Jazmín #[id number] Information Interpreted: non-clinical & clinical Allergies acetaminophen (From Percocet) Allergy (Severe, Verified 04/01/25 14:28) Anaphylaxis oxycodone (From Percocet) Allergy (Severe, Verified 04/01/25 14:28) Anaphylaxis Vicodin Allergy (Unknown, Uncoded 03/13/25 14:38) Anaphylaxis HPI Comments Details: The patient is a 54-year-old female presenting with chronic painful diabetic neuropathy. She reports experiencing constant burning pain in her feet, described as heavy and like fire, particularly severe in the morning upon waking. The pain has been present for many years, and she manages it with gabapentin, which provides some relief. Her diabetes is poorly controlled with an A1c of 8.9, and she monitors her blood glucose levels regularly. She follows with Endocrinology, currently on insulin therapy and has been trying to admit to ADA diet. The patient also has fibromyalgia and chronic pain affecting her neck, shoulder, lower back, knees, and feet. She underwent previous foot surgery and has screws in place. - Onset: Pain has been present for many years - Quality: Described as burning, heavy, and like fire, tingling, numbness; aching, hurting, spasming body pain - Location: Primarily in the feet; intermittent low back pain, widespread body pain - Timing: Most severe in the morning upon waking - Exacerbating factors: Walking for too long - Relieving factors: Gabapentin provides some relief - Affect: Pain impacts her sleep and mood, daily activities and mobility - Analgesia: Gabapentin used with partial relief - Adverse Effects: No adverse effects from medications discussed - Activities of Daily Living: Pain is constant and affects mobility, especially when walking for extended periods - Aberrant Drug Related Behaviors: No aberrant behaviors discussed [facility] Medical History Cellulitis Right groin pain Arthritis Elevated LFTs Fibromyalgia Bunion, left foot Migraine Asthma Seasonal allergies Mood disorder Joint pain Hyperlipidemia LDL goal <100 Type 2 diabetes mellitus with polyneuropathy Type 2 diabetes mellitus with hyperglycemia Surgical History Hx of colonoscopy (~2019) Hx of cholecystectomy Hx of foot surgery History of bilateral carpal tunnel release Hx of cataract surgery Family History Father Hypertension Mother Diabetes Colon cancer Brother Liver cancer Social History Household Members: Other Household Members Other:: Sister Alcohol intake: current Alcohol intake frequency: does not drink Patient Tobacco Use Status: Never used Tobacco Review of Systems Const Details: - Neurological: Reports constant burning pain and numbness in feet, denies headaches or dizziness - Endocrine: Reports poorly controlled diabetes with A1c of 8.9 - Musculoskeletal: Reports chronic pain in neck, shoulder, lower back, knees, and feet - General: Denies history of cancer in medical records, reports history of abdominal cancer All systems reviewed & are unremarkable except as noted in HPI and below Physical Exam Vital Signs: Last Vital Signs Pulse 92 04/01/25 14:26 BP 122/78 04/01/25 14:26 Pulse Ox 96 04/01/25 14:26 Oxygen Delivery Method Room Air 04/01/25 14:26 BMI result Body Mass Index 28.8 General: Appears afebrile. Alert and oriented. Mood and affect appropriate. Follows and participates in conversation appropriately. Respiratory effort is unlabored. No cough. Able to transition from sit to stand unassisted. Ambulates with bilaterally normal heel strike and toe off. General: Yes no CVA tenderness Back/Spine/Pelvis Other: Multiple widespread TTPs 16/16 bilaterally, including upper and lower extremities. Back: no CVA tenderness Cervical Spine: cervical ROM normal and No Cervical spine tenderness Thoracic/Lumbar Spine: thoracic and lumbar spine normal to inspection, No Thoracic/lumbar spine scar(s), Lasegue's sign negative, straight leg raise negative bilaterally, pain with thoraco-lumbar ROM, thoraco-lumbar ROM limited, No thoracic spinal tenderness and No lumbar spinal tenderness Skin General skin exam: no rashes or lesions noted Extrem Other: There is a decreased sensation over the soles of the bilateral feet and toes. Reports numbness, burning, tingling and bilateral foot pain. No breaks in the skin. No soft tissue swelling or warmth. +2 pedal pulses bilaterally. Well healed incisions to both feet. General: Yes capillary refill normal, Yes no clubbing, cyanosis or edema and Yes no calf tenderness Assessment & Plan Assessment & Plan (1) Chronic low back pain: Code(s): M54.50 - Low back pain, unspecified; G89.29 - Other chronic pain Category: Medical (2) Fibromyalgia: Code(s): M79.7 - Fibromyalgia Category: Medical (3) Chronic painful diabetic neuropathy: Code(s): E11.40 - Type 2 diabetes mellitus with diabetic neuropathy, unspecified Category: Medical (4) Chronic low back pain: Code(s): M54.50 - Low back pain, unspecified; G89.29 - Other chronic pain Category: Medical Plan The plan includes addressing the chronic painful diabetic neuropathy with the application of Qutenza patches, contingent upon insurance approval. Informational pamphlets provided to patient in Danish and Vietnamese. An EMG study will be ordered to assess the severity of the neuropathy and lumbar spine xray to assess degree of degenerative changes, any subluxation, listhesis, compression fractures or pars defects. The patient is advised to follow up with endocrinology for better diabetes management. The patient's A1c needs to be reduced below 7.5 to consider interventional pain management procedures. All questions and concerns have been answered and patient agreed with the plan. Follow up for EMG/xray results and sooner as needed. Patient was informed and verbally consented to the use of an ambient scribe for clinic note documentation during this visit. Orders: Orders XR lumbar spine 4V min Today G89.29 - Other chronic pain, M54.50 - Low back pain, unspecified NE electromyogram (EMG) Today E11.40 - Type 2 diabetes mellitus with diabetic neuropathy, unspecified, G89.29 - Other chronic pain, M54.50 - Low back pain, unspecified NE nerve conduction velocity Today E11.40 - Type 2 diabetes mellitus with diabetic neuropathy, unspecified, G89.29 - Other chronic pain, M54.50 - Low back pain, unspecified Coding Level of Care Code New Pt Level 4 (50519) Diagnoses Chronic low back pain M54.50; G89.29 Fibromyalgia M79.7 Chronic painful diabetic neuropathy E11.40
[2025-04-01 14:26] VITALS: BP 122/78; PULSE 92; O2SAT 96; BMI 28.8
--- OUTSIDE RECORDS SUMMARY | 2025-04-01 14:53 | XMS_ITS | Clinical Summary ---
Author Organization [facility] Address [address] [place] [address] Phone Care Team Providers Care Ornamental Iron Erector Name Role Phone Grisel Meraz MD [...] THE LUNGS TWICE A DAY 3 Active fenofibrate (TRICOR) 48 mg tablet [...] mg total) by mouth daily. 2 Active rosuvastatin (CRESTOR) 40 mg tablet Take 1 tablet (40 mg total) by mouth 1 (one) time each day. 3 Active senna-docusate (PERICOLACE) 8.6-50 mg per tablet Take 1 tablet by mouth daily. 3 Active simethicone (MYLICON) 80 mg chewable tablet TOME ERENDIRA TABLETA POR V A ORAL CUATRO VECES AL D A CUANDO SEA NECESARIO FOR GAS PAIN/BLOATING 3 Active budesonide-for moteroL (Symbicort) 160-4.5 mcg/actuation [...] Problem Noted Date Diagnosed Date Non-Hodgkin's lymphoma ([facility] V24, [facility] V28 ) 09/29/2022 Encounters Date Type Department Care Team Description 02/24/2025 3:30 PM EDT Office Visit [facility] Hematology Oncology [address] [place] [phone] Nirmal Cooper MD Diffuse large B-cell lymphoma of intra-abdominal lymph nodes ([facility] V24, [facility] V28) (Primary Dx) from Last 3 Months Immunizations Name Administration Dates Next Due Moderna SARS-CoV-2 COVID-19, mRNA, LNP-S, preservative free 02/11/2021,01/14/2021 Medical History Medical History Date Comments Diabetes mellitus ([facility] V24, [facility] V28) Colon cancer ([facility] V24, [facility] V28) Family History Medical History Relation Name [...] Description 11/12/2025 3:30 PM EDT Office Visit [facility] Hematology Oncology [address] [place] [phone] Nirmal Cooper MD [address] [place] [address] Health Maintenance Due Date Last Done Comments Breast Cancer Screening 1972 Diabetes: Annual Foot Exam 1982 Diabetes: Annual Retina Eye Exam 1982 Hepatitis B Vaccines (1 of 3 - 19+ 3-dose series) 1991 Cervical Cancer Screening: Pap Smear 1993 Pneumococcal Vaccine: 50+ Years (2 of 2 - PCV) 03/10/2015 03/10/2014 Colorectal Cancer Screening: Colonoscopy 08/16/2022 Social Influencers of Health Screening 08/16/2022 COVID-19 Vaccine ( - 2023- season) 2024 10/27/2022, 12/13/2021, 02/11/2021, Additional history exists Diabetes: Annual Urine Albumin-Creatinine Ratio (uACR) 07/17/2024 Depression Screening 09/04/2024 Influenza Vaccine (#1) 2025 , 06/28/2023, 10/14/2020, Additional history exists Diabetes: Blood Sugar Control Test (HGBA1C) 06/05/2025 12/04/2024, 09/05/2024, 04/09/2024, Additional history exists Diabetes: Annual GFR (Glomerular Filtration Rate) 11/22/2025 11/22/2024, 09/25/2024, 08/06/2024, Additional history exists Cholesterol Screening (Lipid Panel) 11/22/2029 11/22/2024, 09/06/2023, [...] 7:30 PM EST LIPID PANEL Routine 09/06/2023 HM HEPATITIS C SCREENING Routine 11/21/2022 HM HIV SCREENING Routine 12/03/2021 HEMOGLOBIN A1C Routine 12/03/2021 from Last 3 Months or Most Recently Relevant to Health Maintenance Results * CBC auto differential (02/20/2025 1:34 PM EDT) [facility] WBC 6.2 4.8 - 10.8 K/mcL LAB HEMETOLOGY METHOD 02/20/2025 4:43 PM EDT [facility] RBC 4.50 3.80 - 4.80 M/mcL LAB HEMETOLOGY METHOD 02/20/2025 4:43 PM EDT [facility] Hemoglobin 12.8 11.5 - 16.0 g/dL LAB HEMETOLOGY METHOD 02/20/2025 4:43 PM EDT [facility] Hematocrit 39.2 35.0 - 47.0 % LAB HEMETOLOGY METHOD 02/20/2025 4:43 PM EDT [facility] MCV 86.5 79.0 - 98.0 FL LAB HEMETOLOGY METHOD 02/20/2025 4:43 PM EDT [facility] MCH 28.3 27.0 - 32.0 pcg LAB HEMETOLOGY METHOD 02/20/2025 4:43 PM EDT [facility] MCHC 32.7 32.0 - 37.0 g/dL LAB HEMETOLOGY METHOD 02/20/2025 4:43 PM EDT [facility] RDW 12.9 11.0 - 15.0 % LAB HEMETOLOGY METHOD 02/20/2025 4:43 PM EDT [facility] Platelets 243 130 - 400 K/mcL LAB HEMETOLOGY METHOD 02/20/2025 4:43 PM EDT [facility] MPV 10.8 7.0 - 11.0 FL LAB HEMETOLOGY METHOD 02/20/2025 4:43 PM [facility] NRBC 0.0 <1.0 % LAB HEMETOLOGY METHOD 02/20/2025 4:43 PM [facility] NRBC Absolute 0.00 <0.10 K/mcL [...] 02/20/2025 4:43 PM [facility] Basophils Relative 1.1 % LAB HEMETOLOGY METHOD 02/20/2025 4:43 PM [facility] Immature Granulocytes Relative 0.3 % LAB HEMETOLOGY METHOD 02/20/2025 4:43 PM [facility] Neutrophils Absolute 3.32 1.50 - 7.00 K/mcL LAB HEMETOLOGY METHOD 02/20/2025 4:43 PM [facility] Lymphocytes Absolute 2.12 1.00 - 5.00 K/mcL LAB HEMETOLOGY METHOD 02/20/2025 4:43 PM [facility] Monocytes Absolute 0.42 0.20 - 1.00 K/mcL LAB HEMETOLOGY METHOD 02/20/2025 4:43 PM [facility] Eosinophils Absolute 0.22 0.00 - 0.50 K/mcL LAB HEMETOLOGY METHOD 02/20/2025 4:43 PM [facility] Basophils Absolute 0.07 0.00 - 0.20 K/mcL LAB HEMETOLOGY METHOD 02/20/2025 4:43 PM EDT [facility] Immature Granulocytes Absolute 0.02 0.00 - 0.03 K/mcL LAB HEMETOLOGY METHOD 02/20/2025 4:43 PM EDT [facility] Blood Venous blood specimen / Unknown Venipuncture / Unknown 02/20/2025 1:34 PM EDT 02/20/2025 4:35 PM EDT Nirmal Cooper MD LAB BLOOD ORDERABLES Final R esult [facility] [address] [place] [address], [place] [phone] * Lactate dehydrogenase (02/20/2025 1:34 PM EDT) LDH 244 120 - 246 unit/L LAB CHEMISTRY METHOD 02/20/2025 5:11 PM EDT [facility] Blood Venous blood specimen / Unknown Venipuncture / Unknown 02/20/2025 1:34 PM EDT 02/20/2025 4:34 PM EDT Nirmal Cooper MD LAB BLOOD ORDERABLES Final R esult [facility] [address] [place] [address], [place] [phone] * Beta 2 microglobulin, serum (02/20/2025 1:34 PM EDT) Beta-2 Microglobulin 1.8 0.7 - 1.8 mg/L LAB CHEMISTRY METHOD 02/20/2025 5:19 PM EDT [facility] Blood Venous blood specimen / Unknown Venipuncture / Unknown 02/20/2025 1:34 PM EDT 02/20/2025 4:34 PM EDT Nirmal Cooper MD LAB BLOOD ORDERABLES Final R esult [facility] [address] [place] [address], * (ABNORMAL) Comprehensive metabolic panel (09/25/2024 7:30 PM EST) Sodium 131(L) 133 - 145 mmol/L LAB CHEMISTRY METHOD 09/25/2024 8:22 PM [facility] Potassium 4.1 3.5 - 5.5 mmol/L LAB CHEMISTRY METHOD 09/25/2024 8:22 PM [facility] Chloride 100 96 - 110 mmol/L LAB CHEMISTRY METHOD 09/25/2024 8:22 PM [facility] CO2 28 21 - 32 mmol/L LAB CHEMISTRY METHOD 09/25/2024 8:22 PM [facility] Anion Gap 3 3 - 11 LAB CHEMISTRY METHOD 09/25/2024 8:22 PM [facility] Glucose 310(H) 70 - 100 mg/dL LAB CHEMISTRY METHOD 09/25/2024 8:22 PM [facility] BUN 11 5 - 25 mg/dL LAB CHEMISTRY METHOD 09/25/2024 8:22 PM [facility] Creatinine 0.76 0.50 - 1.10 mg/dL LAB CHEMISTRY METHOD 09/25/2024 8:22 PM [facility] eGFR 94 >=60 mL/min/1. 73m2 LAB CHEMISTRY METHOD 09/25/2024 8:22 PM [facility] Comment:Calculation based on the Chronic Kidney Disease Epidemiology Collaboration (CKD-EPI) equation refit without adjustment for race. BUN/Creatinine Ratio 14.5 LAB CHEMISTRY METHOD 09/25/2024 8:22 PM [facility] Calcium 9.3 8.5 - 10.5 mg/dL LAB CHEMISTRY METHOD 09/25/2024 8:22 PM [facility] AST (SGOT) 33 10 - 42 unit/L LAB CHEMISTRY METHOD 09/25/2024 8:22 PM [facility] ALT (SGPT) 46 10 - 60 unit/L LAB CHEMISTRY METHOD 09/25/2024 8:22 PM [facility] Alkaline Phosphatase 103 42 - 121 unit/L LAB CHEMISTRY METHOD 09/25/2024 8:22 PM [facility] Total Protein 7.9 6.0 - 8.0 g/dL LAB CHEMISTRY METHOD 09/25/2024 8:22 PM [facility] Albumin 4.1 3.2 - 5.0 g/dL LAB CHEMISTRY METHOD 09/25/2024 8:22 PM [facility] Total Bilirubin 0.6 0.0 - 1.4 mg/dL LAB CHEMISTRY METHOD 09/25/2024 8:22 PM [facility] Blood Venous blood specimen / Unknown Venipuncture / Unknown 09/25/2024 7:30 PM EST 09/25/2024 7:37 PM EST Savage Frank DO LAB BLOOD ORDERABLES Final Resu lt [facility] [address] [place] [address], * Lipid panel (09/06/2023) LDL/HDL Ratio 0 [...] MAINTENANCE Final Result * Hemoglobin A1c (12/03/2021) Hemoglobin A1C 0.0 % Blood Venous blood specimen / Unknown Historical Provider LAB BLOOD ORDERABLES Prema l Result from Last 3 Months or Most Recently Relevant to Health Maintenance Insurance [place] - [place] [facility] AMANDA ESPINOZA [id number] Care Teams Ornamental Iron Erector Relationship Specialty Start Date End Date Grisel Meraz MD [address] [place] [phone] PCP - General 09/16/22
--- OUTSIDE RECORDS SUMMARY | 2025-04-01 14:53 | XMS_ITS | Encounter Summary ---
Author Organization [employer] Address [address] [facility] [address] [place] [address] Care Team Providers Care Commercial Light Fixture Assembler Name Role Phone Grisel Meraz MD Primary Care Provider [phone] Encounter Details Date Type Department Care Team ([facility] Contact Info) Description 07/11/2023 Abstract [facility] MEDICINE [address] [place] [address] Grisel Meraz MD [address] [place], [place] [phone] Social History Tobacco Use Types Packs/Day Years [...] Care Team (Late st Contact Info) Description 06/03/2025 2:00 PM EDT Clinical Support [facility]S [address] [place], [place] [phone] Zoe Patrick, TREVER [address] [place], [place] [phone] 06/16/2025 1:45 PM EDT Office Visit [facility] OPTOMETRY [address] [place], [place] [phone] TarkaLolita, OD [address] [place] [address] documented as of this encounter Procedures Procedure [...] documented as of this encounter Care Teams Commercial Light Fixture Assembler Relationship Specialty Start Date End Date Grisel Meraz MD [address] [place] [address] PCP - General Family Medicine 03/06/19 documented as of this encounter
--- OUTSIDE RECORDS SUMMARY | 2025-04-01 14:53 | XMS_ITS | Clinical Summary ---
Author Organization [facility] Address [address] [place] [address] Care Team Providers Care Pile Driving Superintendent Name Role Phone Grisel Meraz MD Primary Care Provider [phone] Allergies Active Allergy Reactions Criticality Noted Date [...] tablet by mouth daily. 0 07/08/2022 Active [place]-3 Fatty Acids (Fish Oil) 1000 MG CAPS [...] age to complete this topic Care Teams Pile Driving Superintendent Relationship Specialty Start Date End Date Grisel Meraz MD [address] [place], [place] [phone] PCP - General Pediatrics 09/16/22
== END 2025-04-01 14:41 | disposition home or self-care (01) ==
LOC: HO.PMC 14:10
PROVIDERS: PCP Pediatrics; Visit Provider Nurse Practitioner Family
DX: M54.50 Low back pain, unspecified (principal); G89.29 Other chronic pain; M79.7 Fibromyalgia; E11.40 Type 2 diabetes mellitus with diabetic neuropathy, unspecified
CPT/HCPCS: 99204

== ENCOUNTER → 2025-04-01 14:10 | Outpatient (BNVA) | payer MEDICARE, MEDICAID, SELFPAY | PROVIDERS: PCP Pediatrics; Visit Provider Nurse Practitioner Family | DX: M54.50 Low back pain, unspecified (principal); E11.40 Type 2 diabetes mellitus with diabetic neuropathy, unspecified; G89.29 Other chronic pain; M79.7 Fibromyalgia; E11.65 Type 2 diabetes mellitus with hyperglycemia; Z79.4 Long term (current) use of insulin | CPT/HCPCS: 99202 ==

== ENCOUNTER 2025-04-03 15:15 | Outpatient (REF) | payer MEDICARE, MEDICAID, SELFPAY ==
--- NOTE | ~2025-04-03 | XR_ITS ---
EXAMINATION: X-ray lumbar spine. CLINICAL INFORMATION: Low back pain. TECHNIQUE: AP oblique and lateral views. COMPARISON: Correlated to CT abdomen and pelvis dated April 16, 2021. FINDINGS: No acute cortical disruption or malalignment. No lytic or blastic lesions. Mild endplate sclerosis at multiple levels of the axial skeleton. Vascular clips right upper abdomen. Vascular calcifications, aorta. XR/XR lumbar spine 4V min IMPRESSION: Multilevel thoracolumbar spondylosis without acute fracture or listhesis. Atherosclerosis disease, aorta. Status post cholecystectomy. Electronically signed by: Og Joshi MD 04/03/2025 03:53 PM EDT
--- OUTSIDE RECORDS SUMMARY | 2025-04-03 15:21 | XMS_ITS | Encounter Summary ---
Author Organization [employer] Address [address] [facility] [address] [place] [address] Care Team Providers Care Devulcanizer Loader Name Role Phone Grisel Meraz MD Primary Care Provider [phone] Encounter Details Date Type Department Care Team ([facility] Contact Info) Description 07/11/2023 Abstract [facility] MEDICINE [address] [place] [address] Grisel Meraz MD [address] [place], [place] [phone] Social History Tobacco Use Types Packs/Day Years [...] Description 06/03/2025 2:00 PM EDT Clinical Support [facility] [address] [place], [place] [phone] Zoe Patrick, TREVER [address] [place], [place] [phone] 06/16/2025 1:45 PM EDT Office Visit [facility] OPTOMETRY [address] [place], [place] [phone] TarkaLolita, OD [address] [place] [address] documented as of this encounter Procedures Procedure [...] documented as of this encounter Care Teams Devulcanizer Loader Relationship Specialty Start Date End Date Grisel Meraz MD [address] [place] [address] PCP - General Family Medicine 03/06/19 documented as of this encounter
--- OUTSIDE RECORDS SUMMARY | 2025-04-03 15:21 | XMS_ITS | Clinical Summary ---
Author Organization [facility] Address [address] [place] [address] Phone Care Team Providers Care Freelance Graphic Designer Name Role Phone Grisel Meraz MD Primary Care Provider [phone] Allergies Active Allergy Reactions Criticality Noted Date [...] Problem Noted Date Diagnosed Date Non-Hodgkin's lymphoma ([facility] [place]24, [facility] [place] V28 ) 09/29/2022 Encounters Date Type Department Care Team Description 02/24/2025 3:30 PM EDT Office Visit [facility] Hematology Oncology [address] [place] [phone] Nirmal Cooper MD Diffuse large B-cell lymphoma of intra-abdominal lymph nodes ([facility] [place] V24, [facility] [place] V28) (Primary Dx) from Last 3 Months Immunizations Name Administration Dates Next Due Moderna SARS-CoV-2 COVID-19, mRNA, LNP-S, preservative free 02/11/2021,01/14/2021 Medical History Medical History Date Comments Diabetes mellitus ([facility] [place] V24, [facility] [place] V28) Colon cancer [place] [place] V24, [facility] [place] V28[place] Family History Medical History Relation [...] Description 11/12/2025 3:30 PM EDT Office Visit [facility] Hematology Oncology [address] [place] [phone] Nirmal Cooper MD [address] [place] [address] Health Maintenance Due Date Last Done Comments [...] CBC auto differential (02/20/2025 1:34 PM EDT) [facility] WBC 6.2 4.8 - 10.8 K/mcL LAB HEMETOLOGY METHOD 02/20/2025 4:43 PM EDT [facility] RBC 4.50 3.80 - 4.80 M/mcL LAB HEMETOLOGY METHOD 02/20/2025 4:43 PM EDT [facility] Hemoglobin 12.8 11.5 - 16.0 g/dL LAB HEMETOLOGY METHOD 02/20/2025 4:43 PM EDT [facility] Hematocrit 39.2 35.0 - 47.0 % LAB HEMETOLOGY METHOD 02/20/2025 4:43 PM EDT [facility] MCV 86.5 79.0 - 98.0 FL LAB HEMETOLOGY METHOD 02/20/2025 4:43 PM EDT [facility] MCH 28.3 27.0 - 32.0 pcg LAB HEMETOLOGY METHOD 02/20/2025 4:43 PM EDT [facility] MCHC 32.7 32.0 - 37.0 g/dL LAB HEMETOLOGY METHOD 02/20/2025 4:43 PM EDT [facility] RDW 12.9 11.0 - 15.0 % LAB HEMETOLOGY METHOD 02/20/2025 4:43 PM EDT [facility] Platelets 243 130 - 400 K/mcL LAB HEMETOLOGY METHOD 02/20/2025 4:43 PM EDT [facility] MPV 10.8 7.0 - 11.0 FL LAB HEMETOLOGY METHOD 02/20/2025 4:[address] [facility] NRBC 0.0 <1.0 % LAB HEMETOLOGY METHOD 02/20/2025 4:[address] [facility] NRBC Absolute 0.00 <0.10 K/mcL LAB HEMETOLOGY METHOD 02/20/2025 4:[address] [facility] Neutrophils Relative 53.8 % LAB HEMETOLOGY METHOD 02/20/2025 4:[address] [facility] Lymphocytes Relative 34.4 % LAB HEMETOLOGY METHOD 02/20/2025 4:[address] [facility] Monocytes Relative 6.8 % LAB HEMETOLOGY METHOD 02/20/2025 4:[address] [facility] Eosinophils Relative 3.6 % LAB HEMETOLOGY METHOD 02/20/2025 4:[address] [facility] Basophils Relative 1.1 % LAB HEMETOLOGY METHOD 02/20/2025 4:[address] [facility] Immature Granulocytes Relative 0.3 % LAB HEMETOLOGY METHOD 02/20/2025 4:[address] [facility] Neutrophils Absolute 3.32 1.50 - 7.00 K/mcL LAB HEMETOLOGY METHOD 02/20/2025 4:[address] [facility] Lymphocytes Absolute 2.12 1.00 - 5.00 K/mcL LAB HEMETOLOGY METHOD 02/20/2025 4:[address] [facility] Monocytes Absolute 0.42 0.20 - 1.00 K/mcL LAB HEMETOLOGY METHOD 02/20/2025 4:[address] [facility] Eosinophils Absolute 0.22 0.00 - 0.50 K/mcL LAB HEMETOLOGY METHOD 02/20/2025 4:[address] [facility] Basophils Absolute 0.07 0.00 - 0.20 K/mcL LAB HEMETOLOGY METHOD 02/20/2025 4:43 PM EDT [facility] Immature Granulocytes Absolute 0.02 0.00 - 0.03 K/mcL LAB HEMETOLOGY METHOD 02/20/2025 4:43 PM EDT [facility] Blood Venous blood specimen / Unknown Venipuncture / Unknown 02/20/2025 1:34 PM EDT 02/20/2025 4:35 PM EDT Nirmal Cooper MD LAB BLOOD ORDERABLES Final R esult [facility] [address] [place] [address], [place] [phone] * Lactate dehydrogenase (02/20/2025 1:34 PM EDT) LDH 244 120 - 246 unit/L LAB CHEMISTRY METHOD 02/20/2025 5:11 PM EDT [facility] Blood Venous blood specimen / Unknown Venipuncture / Unknown 02/20/2025 1:34 PM EDT 02/20/2025 4:34 PM EDT Nirmal Cooper MD LAB BLOOD ORDERABLES Final R esult [facility] [address] [place] [address], [place] [phone] * Beta 2 microglobulin, serum (02/20/2025 1:34 PM EDT) Beta-2 Microglobulin 1.8 0.7 - 1.8 mg/L LAB CHEMISTRY METHOD 02/20/2025 5:19 PM EDT [facility] Blood Venous blood specimen / Unknown Venipuncture / Unknown 02/20/2025 1:34 PM EDT 02/20/2025 4:34 PM EDT Nirmal Cooper MD LAB BLOOD ORDERABLES Final R esult [facility] [address] [place] [address], * (ABNORMAL) Comprehensive metabolic panel (09/25/2024 7:30 PM EST) Sodium 131(L) 133 - 145 mmol/L LAB CHEMISTRY METHOD 09/25/2024 8:22 PM [facility] Potassium 4.1 3.5 - 5.5 mmol/L LAB CHEMISTRY METHOD 09/25/2024 8:22 PM [facility] Chloride 100 96 - 110 mmol/L LAB CHEMISTRY METHOD 09/25/2024 8:22 PM [facility] CO2 28 21 - 32 mmol/L LAB CHEMISTRY METHOD 09/25/2024 8:22 PM [facility] Anion Gap 3 3 - 11 LAB CHEMISTRY METHOD 09/25/2024 8:22 PM [facility] Glucose 310(H) 70 - 100 mg/dL LAB CHEMISTRY METHOD 09/25/2024 8:22 PM [facility] BUN 11 5 - 25 mg/dL LAB CHEMISTRY METHOD 09/25/2024 8:22 PM [facility] Creatinine 0.76 0.50 - 1.10 mg/dL LAB CHEMISTRY METHOD 09/25/2024 8:22 PM [facility] eGFR 94 >=60 mL/min/1. 73m2 LAB CHEMISTRY METHOD 09/25/2024 8:22 PM [facility] Comment:Calculation based on the Chronic Kidney Disease Epidemiology Collaboration (CKD-EPI) equation refit without adjustment for race. BUN/Creatinine Ratio 14.5 LAB CHEMISTRY METHOD 09/25/2024 8:22 PM [facility] Calcium 9.3 8.5 - 10.5 mg/dL LAB CHEMISTRY METHOD 09/25/2024 8:22 PM [facility] AST (SGOT) 33 10 - 42 unit/L LAB CHEMISTRY METHOD 09/25/2024 8:22 PM [facility] ALT (SGPT) 46 10 - 60 unit/L LAB CHEMISTRY METHOD 09/25/2024 8:22 PM [facility] Alkaline Phosphatase 103 42 - 121 unit/L LAB CHEMISTRY METHOD 09/25/2024 8:22 PM [facility] Total Protein 7.9 6.0 - 8.0 g/dL LAB CHEMISTRY METHOD 09/25/2024 8:22 PM [facility] Albumin 4.1 3.2 - 5.0 g/dL LAB CHEMISTRY METHOD 09/25/2024 8:22 PM [facility] Total Bilirubin 0.6 0.0 - 1.4 mg/dL LAB CHEMISTRY METHOD 09/25/2024 8:22 PM [facility] Blood Venous blood specimen / Unknown Venipuncture / Unknown 09/25/2024 7:30 PM EST 09/25/2024 7:37 PM EST Savage Frank DO LAB BLOOD ORDERABLES Final Resu lt [facility] [address] [place] [address], * Lipid panel (09/06/2023) LDL/HDL Ratio 0 [...] to Health Maintenance Insurance [place] - [place] [facility] [place] [id number] Care Teams Freelance Graphic Designer Relationship Specialty Start Date End Date Grisel Meraz MD [address] [place] [id number] PCP - General 09/16/22
--- OUTSIDE RECORDS SUMMARY | 2025-04-03 15:21 | XMS_ITS | Clinical Summary ---
Author Organization [facility] Address [address] [place] [address] Care Team Providers Care Dispatcher Radio Name Role Phone Grisel Meraz MD Primary Care Provider [phone] Allergies Active Allergy Reactions Criticality Noted Date [...] tablet by mouth daily. 0 07/08/2022 Active [place]-3 Fatty Acids (Fish Oil) 1000 MG CAPS [...] age to complete this topic Care Teams Dispatcher Radio Relationship Specialty Start Date End Date Grisel Meraz MD [address] [place], [place] [id number] PCP - General Pediatrics 09/16/22
== END 2025-04-03 15:16 | disposition home or self-care (01) ==
LOC: HO.XRAY 15:15
PROVIDERS: PCP Pediatrics; Visit Provider Nurse Practitioner Family
DX: G89.29 Other chronic pain (principal); M54.50 Low back pain, unspecified
CPT/HCPCS: 72110

== ENCOUNTER → 2025-04-03 15:19 | Outpatient (BNV) | payer MEDICARE, MEDICAID, SELFPAY | PROVIDERS: PCP Pediatrics; Visit Provider Radiology Diagnostic Radiology | DX: M47.815 Spondylosis without myelopathy or radiculopathy, thoracolumbar region (principal) | CPT/HCPCS: 72110 ==

== ENCOUNTER 2025-06-12 13:33 | Outpatient (REF) | payer MEDICARE, MEDICAID, SELFPAY ==
--- NOTE | 2025-06-12 13:36 | EMG_ITS ---
Chief complaint: History of lymphoma status post chemo, diabetes and neuropathy, chronic back pain, complaining of painful numbness on both feet. Reason for referral: Evaluate for neuropathy versus radiculopathy Referred by: Aster Hay NP Procedure done: Bilateral lower extremity NCS/EMG Precautions and/or limitations: None The limb temperature was monitored continuously and remained between 32-36 degrees C during the performance of the NCS. Nerve Conduction Studies Anti Sensory Summary Table ?Stim Site NR Onset (ms) Norm Onset (ms) Peak (ms) Norm Peak (ms) O-P Amp (?V) Norm O-P Amp Site1 Site2 Delta-0 (ms) Dist (cm) Lenny (m/s) Norm Lenny (m/s) Left Sural Anti Sensory (Lat Mall) Calf ? 1.2 1.6 <4.0 7.5 >5.0 Calf Lat Mall 1.2 14.0 117 ? 1.3 1.8 6.8 Right Sural Anti Sensory (Lat Mall) Calf ? 2.1 2.4 <4.0 6.4 >5.0 Calf Lat Mall 2.1 14.0 67 Motor Summary Table ?Stim Site NR Onset (ms) Norm Onset (ms) O-P Amp (mV) Norm O-P Amp iAmp (mV) Amp (1st) (%) Site1 Site2 Delta-0 (ms) Dist (cm) Lenny (m/s) Norm Lenny (m/s) Right Peroneal Motor (Ext Dig Brev) Ankle ? 3.8 <4.0 4.4 >2.5 5.2 100.0 Ankle Ext Dig Brev 3.8 0.0 B Fib ? 10.3 3.8 4.6 86.4 B Fib Ankle 6.5 30.0 46 >40 Poplt ? 11.4 3.6 4.3 81.8 Poplt B Fib 1.1 6.0 55 >40 Left Tibial Motor (Abd Murry Brev) Ankle ? 4.1 <5 3.4 >2.5 6.2 100.0 Ankle Abd Murry Brev 4.1 0.0 Knee ? 13.0 2.9 5.1 85.3 Knee Ankle 8.9 38.0 43 >40 Right Tibial Motor (Abd Murry Brev) Ankle ? 4.6 <5 3.1 >2.5 5.6 100.0 Ankle Abd Murry Brev 4.6 0.0 Knee ? 12.3 2.4 5.2 77.4 Knee Ankle 7.7 38.0 49 >40 EMG ?Side Muscle Nerve Root Ins Act Fibs Psw Amp Dur Poly Recrt Int Pat Comment Right AbdHallucis MedPlantar S1-2 Incr 1+ 1+ Nml Nml 0 Nml Complete Right AntTibialis Dp Br Peron L4-5 Nml Nml Nml Nml Nml 0 Nml Complete Right PostTibialis Tibial L5, S1 Nml Nml Nml Nml Nml 0 Nml Complete Right MedGastroc Tibial S1-2 Incr Nml Nml Nml Nml 0 Nml Complete Right VastusMed Femoral L2-4 Nml Nml Nml Nml Nml 0 Nml Complete Left AbdHallucis MedPlantar S1-2 Incr 1+ 1+ Nml Nml 0 Nml Complete Left AntTibialis Dp Br Peron L4-5 Nml Nml Nml Nml Nml 0 Nml Complete Left PostTibialis Tibial L5, S1 Nml Nml Nml Nml Nml 0 Nml Complete Left MedGastroc Tibial S1-2 Nml Nml Nml Nml Nml 0 Nml Complete Left VastusMed Femoral L2-4 Nml Nml Nml Nml Nml 0 Nml Complete Paraspinal EMG ?Side Muscle Nerve Root Ins Act Fibs Psw Comment Right Lumbar Upper Rami Nml Nml Nml Right Lumbar Mid Rami Nml Nml Nml Right Lumbar Lower Rami Incr 1+ 1+ Left Lumbar Upper Rami Nml Nml Nml Left Lumbar Mid Rami Nml Nml Nml Left Lumbar Lower Rami Incr 1+ 1+ FINDINGS: All motor and sensory nerves tested showed normal latencies, amplitudes and conduction velocities. Concentric needle EMG was performed in selected muscles of the bilateral lower extremity and lumbar paraspinals. Study revealed signs of electric abnormalities as shown in the table above. Increased insertional activity, PSWs and fibrillations seen on bilateral AH muscles and right medial gastrocnemius. Increased insertional activity PSWs and fibrillations seen on bilateral lumbar paraspinals. IMPRESSION: 1. This is an abnormal study. 2. There is electrodiagnostic evidence for bilateral L5-S1 radiculopathy. 3. There is no electrodiagnostic evidence for peroneal neuropathy, tibial neuropathy, lumbosacral plexopathy, or peripheral neuropathy. CLINICAL COMMENT: Normal nerve conduction studies, without evidence for peripheral neuropathy. Needle EMG highly suggestive of radiculopathy. Further clinical workup or correlation needed. Thank you for your kind referral. Grace Bell MD, GALDINO Board Certified, [place] [employer] and Rehabilitation (ABPMR) Board Certified, [place] Board [employer] Electrodiagnostic Medicine (ABEM) CODIN [id number] x 2 MTDD
== END 2025-06-12 13:34 | disposition home or self-care (01) ==
LOC: HO.NEURO 13:33
PROVIDERS: PCP Pediatrics; Visit Provider Nurse Practitioner Family
DX: G89.29 Other chronic pain (principal); M54.50 Low back pain, unspecified; E11.40 Type 2 diabetes mellitus with diabetic neuropathy, unspecified
CPT/HCPCS: 95886; 95909

== ENCOUNTER → 2025-06-12 13:36 | Outpatient (BNV) | payer MEDICARE, MEDICAID, SELFPAY | PROVIDERS: PCP Pediatrics; Visit Provider Physical Medicine & Rehabilitation | DX: M54.16 Radiculopathy, lumbar region (principal) | CPT/HCPCS: 95886; 95909 ==

== ENCOUNTER 2025-06-19 13:17 | Outpatient (AMB) | payer MEDICARE, MEDICAID, SELFPAY ==
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
--- NOTE | 2025-06-19 13:43 | A.OFFVIS_ITS ---
Intake Intake Visit Reasons: 60 mins Siebel Architect Required: Yes Siebel Architect Language: Account Developer Services: Siebel Architect Offered & Declined Accompanied by: Self / Same As Patient Allergies acetaminophen (From Percocet) Allergy (Severe, Verified 04/01/25 14:28) Anaphylaxis oxycodone (From Percocet) Allergy (Severe, Verified 04/01/25 14:28) Anaphylaxis Vicodin Allergy (Unknown, Uncoded 03/13/25 14:38) Anaphylaxis HPI Comprehensive Diabetes Asmnt Most Recent Diabetes Results: 2 Microalb/Creat Ratio, (<30) 12.9 ug/mg cr 11/22/24 Cholesterol, (<200) 159 mg/dL 11/22/24 HDL Cholesterol, (>40) 54 mg/dL 11/22/24 Triglycerides, (<150) 137 mg/dL 11/22/24 Creatinine, (0.5-1.4) 0.67 mg/dL 11/22/24 BUN, (9-16) 19 mg/dL H 11/22/24 Sodium, (135-145) 143 mmol/L 11/22/24 Potassium, (3.3-5.1) 4.0 mmol/L 11/22/24 Chloride, (96-108) 111 mmol/L H 11/22/24 Carbon Dioxide, (22-29) 26 mmol/L 11/22/24 Calcium, (8.4-10.2) 9.4 mg/dL 11/22/24 AST, (5-31) 32 U/L H 11/22/24 ALT, (0-31) 34 U/L H 11/22/24 Total Protein, (6.5-8.0) 8.3 g/dL H 03/04/21 Albumin, (3.5-5.0) 4.4 g/dL 03/04/21 [facility] Medical History Cellulitis Right groin pain Arthritis Elevated LFTs Fibromyalgia Bunion, left foot Migraine Asthma Seasonal allergies Mood disorder Joint pain Hyperlipidemia LDL goal <100 Type 2 diabetes mellitus with polyneuropathy Type 2 diabetes mellitus with hyperglycemia Surgical History Hx of colonoscopy (~2019) Hx of cholecystectomy Hx of foot surgery History of bilateral carpal tunnel release Hx of cataract surgery Family History Father Hypertension Mother Diabetes Colon cancer Brother Liver cancer Social History Household Members: Other Household Members Other:: Sister Alcohol intake: current Alcohol intake frequency: does not drink Patient Tobacco Use Status: Never used Tobacco Assessment & Plan Assessment & Plan (1) Type 2 diabetes mellitus with hyperglycemia: Code(s): E11.65 - Type 2 diabetes mellitus with hyperglycemia Qualifiers: Diabetes mellitus paper bags sewing machine 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 Patient does not have consistent data in [employer] software. Patient's insulin pump disconnected from cell phone in needed software update The following topics were reviewed today: - importance of a meal announcements - target levels iLet Alerts: ??? High Alert: 300 mg/dl ??? Low Alert: 75 mg/dl Patient has been able to keep ilet connected with insulin pump. She is overdue for A1c last A1c drawn in February 2025 it was 8.9%, down from greater than 12 in October 2024. Patient has upcoming appointment in July [address] Garcia At today's visit we call [employer] patient complained that the clip on the back of her pump is broken. [employer] rep we will be sending patient new case with clip. Discussed with patient the importance of announcing meals. Patient notes meals although there is no evidence on patient's download. At today's visit we changed target to lower target range, that equals 110 mg/dL it is likely that the patient will not start announcing meals this may assist in bringing her closer an A1c of 7% or under Patient understands the basic concepts of pump therapy, how to give insulin for meals and snacks, how to troubleshoot for hyper and hypoglycemia. [facility] as instructed Patient will contact [facility] with questions or concerns, patient given IT number to support in any technical issues related to insulin pump Patient Instructions: Patient will follow-up with certified adapted physical educator in 2 months Coding Level of Care Code Est Pt Level 1 (25944) Diagnoses Type 2 diabetes mellitus with hyperglycemia, with long-term current use of insulin E11.65; Z79.4 Diabetes mellitus paper bags sewing machine operator insulin use: with custodial use
--- OUTSIDE RECORDS SUMMARY | 2025-06-19 16:37 | XMS_ITS | Encounter Summary ---
Author Organization [employer] Address [address] [facility] [address] [place] [address] Care Team Providers Care Observer Helper Name Role Phone Grisel Meraz MD Primary Care Provider [phone] Encounter Details Date Type Department Care Team (Latest Contact Info) Description 06/16/2025 Travel Social History Tobacco Use Types Packs/Day [...] Description 07/08/2025 12:45 PM EST Office Visit [facility] ADULT DENTAL [address] [place] [address] Jose Gagnon 07/24/2025 2:00 PM EST Clinical Support [facility] MED & PEDS [address] [place] [address] Zoe Patrick RN [address] [place] [address] 07/30/2025 9:45 AM EST Procedure Visit [facility] MED & PED[facility] [address] [place] [address] Grisel Meraz MD [address] [place] [address] 10/21/2025 2:30 PM EST Office Visit [facility] OPTOMETRY [address] [place], [place] [phone] Lolita Jenkins, OD [address] [place] [address] documented as of this encounter Visit Diagnoses Not on filedocumented in this encounter Additional Health Concerns Assessment Noted Time PHQ-9 Depression Total Score: 0 12/05/19 25 11:11 AM EDT documented as of this encounter Care Teams Observer Helper Relationship Specialty Start Date End Date Grisel Meraz MD [address] [place] [address] PCP - General Family Medicine 03/06/19 documented as of this encounter
--- OUTSIDE RECORDS SUMMARY | 2025-06-19 16:37 | XMS_ITS ---
Author Organization [facility] Address [address] [place] [address] Care Team Providers Care Drama Critic Name Role Phone Grisel Meraz MD Primary Care Provider [phone] Active Problems Problem Noted Date Diagnosed Date Non-Hodgkin's lymphoma 09/29/2022 Current Oncology Plans No current plan information found. Past Plans ONCOLOGY TREATMENT Plan Name Start Date Discontinue Date Treatment Medications Discontinue Reason Plan Provider [facility] BCN OP R-CHOP [id number] (R IV/SC) 3 11/07/2023 acetaminophen (TYLENOL)albuterol (PROVENTIL)cycloPHOSpham [...] treatments are documented for this patient in [facility]. Treatments may have been administered in another system. Lifetime Dose Tracking * Chemical Lifetime Dose Automatic Entry Manual Entr y Doxorubicin 297.672 mg/m2 (504 mg) 297.672 mg/m2 (504 mg) 0 mg/m2 (0 mg)
--- OUTSIDE RECORDS SUMMARY | 2025-06-19 16:37 | XMS_ITS | Encounter Summary ---
Author Organization [employer] Address [address] [address] Care Team Providers Care Geodetic Surveyor Name Role Phone Grisel Meraz MD Primary Care Provider [phone] Reason for Visit * Reason Onset Date Comments triage 08/16/2022 Encounter Details Date Type Department Care Team (Late Contact Info) Description 08/16/2022 Telephone [facility] MED [facility] PED[facility] [address] [place], [place] [phone] Grisel Meraz MD [address] [place] [address] triage Social History Tobacco Use Types Packs/Day [...] report Losing weight x Months. Patient speaks (Welsh). Advised triage nurse will call patient back. documented in this encounter Plan of Treatment Upcoming Encounters Date Type Department Care Team (Late Contact Info) Description 07/08/2025 12:45 PM EST Office Visit [facility] ADULT DENTAL [address] [place] [address] Jose Gagnon 07/24/2025 2:00 PM EST Clinical Support [facility] MED [facility]ED[facility] [address] [place] [address] Zoe Patrick, TREVER [address] [place] [address] 07/30/2025 9:45 AM EST Procedure Visit [facility] [address] [place] [address] Grisel Meraz MD [address] [place] [address] 10/21/2025 2:30 PM EST Office Visit [facility] OPTOMETRY [address] [place] [address] Lolita Jenkins, OD [address] [place] [address] documented as of this encounter Visit Diagnoses Not on filedocumented in this encounter Care Teams Geodetic Surveyor Relationship Specialty Start Date End Date Grisel Meraz MD [address] [place] [address] PCP - General Family Medicine 03/06/19 documented as of this encounter
--- OUTSIDE RECORDS SUMMARY | 2025-06-19 16:37 | XMS_ITS | Encounter Summary ---
Author Organization [employer] Address [address] [facility] [address] [place] [address] Care Team Providers Care Gang Pusher Name Role Phone Grisel Meraz MD Primary Care Provider [phone] Encounter Details Date Type Department Care Team ([facility] st Contact Info) Description 09/27/2024 Orders Only [facility] [address] [place], [place] [phone] Provider, MD Silverio Social History Tobacco Use [...] Description 07/08/2025 12:45 PM EST Office Visit [facility] ADULT DENTAL [address] [place] [address] Jose Gagnon 07/24/2025 2:00 PM EST Clinical Support [facility] MED & PEDS [address] [place] [address] Zoe Patrick RN [address] [place] [address] 07/30/2025 9:45 AM EST Procedure Visit [facility] MED & PEDS [address] [place] [address] Grisel Meraz MD [address] [place] [address] 10/21/2025 2:30 PM EST Office Visit [facility] OPTOMETRY [address] [place] [address] Tarka Lolita, OD [address] [place] [address] documented as of this encounter Procedures Procedure [...] Noted Time PHQ-9 Depression Total Score: 21 2 023 11:24 AM EST documented as of this encounter Care Teams Gang Pusher Relationship Specialty Start Date End Date Grisel Meraz MD [address] [place] [address] PCP - General Family Medicine 03/06/19 documented as of this encounter
--- OUTSIDE RECORDS SUMMARY | 2025-06-19 16:37 | XMS_ITS | Encounter Summary ---
Author Organization [employer] Address [address] [place] [address] [address] [place] [address] Care Team Providers Care Paver Name Role Phone Grisel Meraz MD Primary Care Provider [phone] Reason for Visit * Reason Comments Med Refill Encounter Details Date Type Department Care Team (Late st Contact Info) Description 09/14/2022 Refill [facility] MEDICINE [address] [place] [address] Sadie Wayne MD [address] [place] [address] Social History Tobacco Use Types Packs/Day Years [...] Description 07/08/2025 12:45 PM EST Office Visit [facility] ADULT DENTAL [address] [place] [address] Jose Gagnon 07/24/2025 2:00 PM EST Clinical Support [facility] MED & PEDS [address] [place] [address] Zoe Patrick RN [address] [place], [place] [id number] 07/30/2025 9:45 AM EST Procedure Visit [facility] MED & PEDS [address] [place], [place] [phone] Grisel Meraz MD [address] [place], [place] [phone] 10/21/2025 2:30 PM EST Office Visit [facility] OPTOMETRY [address] [place], [place] [phone] Lolita Jenkins, OD [address] [place] [address] documented as of this encounter Visit Diagnoses Not on filedocumented in this encounter Care Teams Paver Relationship Specialty Start Date End Date Grisel Meraz MD [address] [place] [address] PCP - General Family Medicine 03/06/19 documented as of this encounter
--- OUTSIDE RECORDS SUMMARY | 2025-06-19 16:37 | XMS_ITS | Encounter Summary ---
Author Organization [employer] Address [address] [facility] [address] [place] [address] Care Team Providers Care Aviation Safety Inspector Name Role Phone Grisel Meraz MD Primary Care Provider [phone] Reason for Visit * Reason Onset Date Comments Nurse Triage 05/30/2025 Encounter Details Date Type Department Care Team ([facility] st Contact Info) Description 05/30/2025 Telephone [facility] CHC MED & PEDS [address] [place] [address] Grisel Meraz MD [address] [place] [address] Nurse Triage Social History Tobacco Use Types [...] encounter Miscellaneous Notes * Telephone Encounter - Jose Barron - 05/30/2025 2:33 PM EDT Symptom: Vomiting Outcome: Talk to a nurse or provider within 15 minutes Reason: Severe headache The caller accepted this outcome.. Contact pt at [phone] (belizean) documented in this encounter Plan of Treatment Upcoming Encounters Date Type Department Care Team ([facility] st Contact Info) Description 07/08/2025 12:45 PM EST Office Visit [facility] ADULT DENTAL [address] [place] [address] Jose Gagnon 07/24/2025 2:00 PM EST Clinical Support [facility] MED & PEDS [address] [place] [address] Zoe Patrick RN [address] [place] [address] 07/30/2025 9:45 AM EST Procedure Visit [facility] MED & PEDS [address] [place] [address] Grisel Meraz MD [address] [place] [address] 10/21/2025 2:30 PM EST Office Visit [facility] OPTOMETRY [address] [place] [address] Lolita Jenkins, OD [address] [place] [address] documented as of this encounter Visit Diagnoses Diagnosis B-cell lymphoma of intra-abdominal lymph nodes, unspecified B-cell lymphoma type (CMS/HCC) (HCC) documented in this encounter Additional Health Concerns Assessment Noted Time PHQ-9 Depression Total Score: 0 12/05/19 25 11:11 AM EDT documented as of this encounter Care Teams Aviation Safety Inspector Relationship Specialty Start Date End Date Grisel Meraz MD [address] [place] [address] PCP - General Family Medicine 03/06/19 documented as of this encounter
--- OUTSIDE RECORDS SUMMARY | 2025-06-19 16:37 | XMS_ITS | Encounter Summary ---
Author Organization [facility] [facility] Address [address] [place] [address] Care Team Providers Care [employer] Registrar Name Role Phone Grisel Meraz MD Primary Care Provider [phone] Encounter Details Date Type Department Care Team Description 12/20/2022 Social Work [facility] Oncology Services [address] [place] [address] Grabiel Silva [facility] [...] on filedocumented in this encounter Care Teams [employer] Registrar Relationship Specialty Start Date End Date Grisel Meraz MD [address] [facility] [place] [address] PCP - General Pediatrics 09/16/22 documented as of this encounter
--- OUTSIDE RECORDS SUMMARY | 2025-06-19 16:37 | XMS_ITS | Clinical Summary ---
Author Organization [employer] Address [address] 7 [place] [address] Care Team Providers Care Quality Specialist Name Role Phone Grisel Meraz MD Primary Care Provider [phone] Allergies Active Allergy Reactions Criticality Noted Date [...] complication, with long-term current use of insulin ([facility]) Inject 30 Units under the skin at [...] each 023 Active Blood Glucose Monitoring Suppl (NVoicePay) w/Device kit CHECK BLOOD SUGAR FOUR TIMES [...] injectionIndicat ions:Type 2 diabetes mellitus with hyperglycemia ([facility]),jail (current) use of insulin ([facility]/HCC) ([facility]) INJECT 2 TO 16 UNITS SUBCUTANEOUSLY FOUR TIMES DAILY 15 mL 6 023 Active insulin aspart FlexPen (NovoLOG) 100 UNIT/ML pen Use 10 units subcutaneously premeals tid or as per sliding scale 15 mL 11 023 Active OneTouch Verio test stripIndications :Type 2 diabetes mellitus without complications ([facility]) TEST BLOOD SUGAR FOUR TIMES DAILY 100 strip 11 Active pioglitazone (Actos) 15 MG tablet TAKE ONE TABLET EVERY MORNING 30 tablet 11 Active gabapentin (Neurontin) 300 MG capsule TAKE ONE CAPSULE TWICE DAILY IN THE MORNING AND AT BEDTIME 180 capsule 3 Active budesonide-formo terol (Symbicort) 160-4.5 MCG/ACT inhaler 023 Active cloNIDine (Catapres) 0.1 MG tablet TAKE ONE TABLET TWICE DAILY IN THE MORNING AND AT BEDTIME NEEDED FOR SLEEP OR FOR ANXIETY Active Dulera 200-5 MCG/ACT inhaler INHALE TWO PUFFS TWICE DAILY IN THE MORNING AND AT BEDTIME, RINSE MOUTH AFTER USE 13 g Active Multiple Vitamin (Multivitamin) tabletIndication s:Type 2 diabetes mellitus without complication, with long-term current use of insulin ([facility]) TAKE ONE TABLET EVERY MORNING 90 tablet 5 Active naloxone (Narcan) 4 mg/0.1 mL nasal spray Administer 1 spray (4 mg) into affected nostril(s) if needed for opioid reversal. May repeat every 2-3 minutes if needed, alternating nostrils, until medical assistance becomes available. 2 each 2 025 2025 Active rosuvastatin (Crestor) 40 MG tablet TAKE ONE TABLET EVERY MORNING 30 tablet 5 Active lisinopril 2.5 MG tablet TAKE ONE TABLET EVERY MORNING 30 tablet Active loratadine (Claritin) 10 MG tablet TAKE ONE TABLET EVERY MORNING 90 tablet 1 Active dextran 70-hypromellose (artificial tears) 0.1-0.3 % ophthalmic solutionIndicati ons:Blurry vision, left eye Administer 1 drop into the left eye if needed in the morning, at noon, and at bedtime for dry eyes. 15 mL 025 2025 Active oxybutynin XL (Ditropan-XL) 5 MG 24 hr tabletIndication s:Type 2 diabetes mellitus with hyperglycemia, with long-term current use of insulin ([facility]) TAKE ONE TABLET EVERY MORNING 30 tablet 5 Active pantoprazole (ProtoNix) 40 MG EC tabletIndication s:Type 2 diabetes mellitus with hyperglycemia, with long-term current use of insulin ([facility]) TAKE ONE TABLET EVERY MORNING 30 tablet 5 025 Active traMADol (Ultram) 50 MG tabletIndication s:B-cell lymphoma of intra-abdominal lymph nodes, unspecified B-cell lymphoma type (CMS/HCC) (HCC) TAKE ONE TABLET EVERY 6 HOURS NEEDED FOR SEVERE PAIN 30 tablet 025 Active oxybutynin XL (Ditropan-XL) 5 MG 24 hr tabletIndication s:Type 2 diabetes mellitus with hyperglycemia, with long-term current use of insulin ([facility]) TAKE ONE TABLET EVERY MORNING 30 tablet 5 025 2024 Discontinued(R eorder (will not trigger notification to Pharmacy)) pantoprazole (ProtoNix) 40 MG EC tabletIndication s:Type 2 diabetes mellitus with hyperglycemia, with long-term current use of insulin ([facility]) TAKE ONE TABLET EVERY MORNING 30 tablet 5 025 2024 Discontinued(R eorder (will not trigger notification to Pharmacy)) traMADol (Ultram) 50 MG tabletIndication s:B-cell lymphoma of intra-abdominal lymph nodes, unspecified B-cell lymphoma type (CMS/HCC) ([facility]) Take 1 tablet (50 mg) by mouth every 6 (six) hours if needed for severe pain. 30 tablet 025 2024 Discontinued Active Problems Problem Noted Date Diagnosed Date Long-term current use of opiate analgesic 2024 Boil, arm 11/03/2024 Diabetes mellitus, labile 09/05/2024 Non-Hodgkin's lymphoma (CMS/HCC) 09/29/2022 06/28/2023 Non-Hodgkin lymphoma of intr a-abdominal lymph nodes (CMS/HCC) 09/26/2022 Bunion 06/27/2018 Hyperlipidemia 06/27/2018 Migraine 06/27/2018 Mild intermittent asthma 06/27/2018 Mood disorder 06/27/2018 Multiple joint pain 06/27/2018 Seasonal allergies 06/27/2018 Type 2 diabetes mellitus without complication Encounters Date Type Department Care Team Description 06/16/2025 1:45 PM EDT Office Visit [facility] [address] [place] [phone] Lolita Jenkins, OD 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, unspecified whether shelter insulin use (HCC) (Primary Dx); 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, unspecified whether shelter insulin use (HCC); Presbyopia 06/16/2025 Travel 06/10/2025 10:30 AM EDT Office Visit [facility] [address] [place] [address] Grisel Meraz MD Diffuse large B-cell lymphoma, unspecified body region (CMS/HCC) (HCC) (Primary Dx); Type 2 diabetes mellitus without complication, with long-term current use of insulin (HCC); Mood disorder (CMS/HCC); Closed fracture of nasal bone with routine healing, subsequent encounter 06/10/2025 Refill [facility] [address] [place] [address] Jeremy Ruiz MD B-cell lymphoma of intra-abdominal lymph nodes, unspecified B-cell lymphoma type (CMS/HCC) (HCC) 06/10/2025 Travel 06/09/2025 Telephone [facility] [address] [place] [address] Grisel Meraz MD Chart Prep 06/03/2025 2:00 PM EDT Clinical Support [facility] [address] [place] [address] Zoe Patrick RN Long-term current use of opiate analgesic (Primary Dx) 06/03/2025 Travel 05/30/2025 Telephone [facility] [address] [place] [address] Grisel Meraz MD Nurse Triage 05/28/[address] [address] Grisel Merza MD 05/28/[address] [address] Grisel Meraz MD requesting info 05/27/[address] [place] [address] Grisel Meraz MD 05/27/2025 Telephone [facility] [address] [place] [address] Shirin Razo LPN 05/27/2025 Telephone [facility] [address] [place] [address] Grisel Meraz MD 05/24/2025 Refill [facility] [address] [place] [address] Grisel Meraz MD Type 2 diabetes mellitus with hyperglycemia, with long-term current use of insulin ([facility]) 05/19/2025 Telephone [facility] [address] [place] [address] Grisel Meraz MD chart prep 05/06/2025 2:00 PM EDT Office Visit [facility] [address] [place] [address] Vince Gagnon MD Laceration of magali bui, initial encounter (Primary Dx); Blurry vision, left eye 05/06/2025 Telephone [facility] [address] [place] [address] Grisel Meraz MD 05/06/2025 Travel 04/25/2025 Refill [facility] [address] [place] [address] Grisel Meraz MD 04/21/2025 Telephone [facility] [address] [place] [address] Grisel Meraz MD Nurse Triage 04/20/2025 Refill [facility] [address] [place] [address] Grisel Meraz MD 04/04/2025 Orders Only [facility] [address] [place] [address] Silverio Schwab MD 04/01/2025 10:30 AM EDT Clinical Support [facility] [address] [place] [address] Zoe Patrick, RN Long-term current use of opiate analgesic 04/01/2025 Refill [facility] [address] [place] [address] Zoe Patrick, RN B-cell lymphoma of intra-abdominal lymph nodes, unspecified B-cell lymphoma type ([facility]/HCC) 04/01/2025 Travel from Last 3 Months Immunizations Immunization Administration Dates Next Due Influenza Injectable Quadriv [...] Sign Reading Time Taken Comments Blood Pressure 139/89 06/10/2025 10:50 AM EDT Pulse 92 06/10/2025 10:50 AM EDT Temperature 37.1 C (98.7 F) 06/10/2025 10:50 AM EDT Respiratory Rate 20 06/10/2025 10:50 AM EDT Oxygen Saturation 97% 05/06/2025 1:44 PM EDT Inhaled Oxygen Concentration - - Weight 73.9 kg (163 lb) 06/10/2025 10:50 AM EDT Height 165.1 cm (5' 5 ) 06/10/2025 10:50 AM EDT Body Mass Index 27.12 06/10/2025 10:50 AM EDT Plan of Treatment Upcoming Encounters Date Type Department Care Team (Late st Contact Info) Description 07/08/2025 12:45 PM EST Office Visit [facility] [address] [place] [address] Jose Gagnon 07/24/2025 2:00 PM EST Clinical Support [facility] [address] [place] [address] Zoe Patrick RN [address] [place] [address] 07/30/2025 9:45 AM EST Procedure Visit [facility] [address] [place] [address] Grisel Meraz MD [address] [place] [address] 10/21/2025 2:30 PM EST Office Visit [facility] [address] [place] [address] Lolita Jenkins, OD [address] [place] [address] Health Maintenance Due Date Last Done Comments CT Colonography 1972 Dental Prophylaxis 1972 FIT DNA/Cologuard 1972 FIT 1972 FOBT 1972 Sigmoidoscopy 1972 Diabetes: Foot Exam 1982 Family Planning (PISQ) 1987 Hepatitis B Vaccines (1 of 3 - 19+ 3-dose series) 1991 Pap Smear 1993 Pneumococcal Vaccine: 50+ Years (2 of 2 - PCV) 03/10/2015 03/10/2014 Dental Oral Exam 01/16/2020 07/17/2019 Dental X-Ray: Full Mouth 07/18/2022 07/17/2019 Dental X-Ray: Bitewings 07/07/2023 07/06/2022, 07/17 Cervical Cancer Screening 04/18/2024 HPV/Cotest 04/18/2024 04/18/2019 COVID-19 Vaccine ( season) 2025 10/27/2022, 12/13/2021, 02/11/2021, Additional history exists Influenza Vaccine (#1) 2025 , 06/28/2023, 10/14/2020, Additional history exists Mammogram 11/15/2025 11/16/2023 Diabetes: Urine Protein Screening 11/22/2025 11/22/2024, 09/06/2023, 12/03/2021, Additional history exists Lipid Panel 11/22/2025 11/22/2024, 11/2023, 12/03/2021, Additional history exists Alcohol/Substance Use Screening 12/04/2025 12/04/2024 Depression Screening 12/04/2025 12/04/2024, 12/05/19 25 Diabetes: Hemoglobin A1C 12/09/2025 025, 12/04/2024, 09/05/2024, Additional history exists Disability Screening 06/10/2026 06/10/2025 SDOH Screening 06/10/2026 06/10/2025 Eye Exam 06/16/2026 06/16/2025, 06/04, 06/16/2025, Additional history exists Tobacco Screening 06/17/2026 06/17/2025 Colonoscopy 09/12/2027 09/12/2022, 11/22/2016 Colorectal Cancer Screening 09/12/2027 DTaP/Tdap/Td Vaccines (5 - Td or Tdap) 10/06/2030 10/06/2020, 06/27/2018, 12/23/2016, Additional history exists RSV Patients and Patients Aged 60 years or older (1 - 1-dose 75+ series) 2047 HIV Screening Completed 12/03/2021 Hepatitis C Screening Completed 12/03/2021, 021 Zoster Vaccines Completed 11/07/2024, 09/05/2024 HIB Vaccines [...] Diagnosis Comments POCT GLYCATED HEMOGLOBIN, TOTAL Routine 06/10/2025 10:52 AM EDT Type 2 diabetes mellitus without complication, with long-term current use of insulin (HCC) POCT GLUCOSE Routine 06/10/2025 10:52 AM EDT Type 2 diabetes mellitus without complication, with long-term current use of insulin (HCC) POCT ROSELYN-14 URINE DRUG SCREEN Routine 06/03/2025 2:10 PM EDT Long-term current use of opiate analgesic SUTURE REMOVAL Routine 05/06/2025 2:14 PM EDT Laceration of ala nasi, initial encounter XR LUMBAR SPINE COMPLETE 4+ VIEWS Routine 04/03/2025 3:38 PM EDT POCT ROSELYN-14 URINE DRUG SCREEN Routine 04/01/2025 10:42 AM EDT Long-term current use of opiate analgesic LIPID PANEL, STANDARD Routine 11/22/2024 11:46 AM EDT ALBUMIN, RANDOM URINE W/CREATININE Routine 11/22/2024 11:22 AM EDT BI MAMMOGRAM SCREENING BILATERAL Routine 11/16/2023 Encounter for screening mammogram for malignant neoplasm of breast HM COLONOSCOPY Routine 09/12/2022 11:49 AM EST BITEWINGS - 4 RADIOGRAPHIC IMAGES [...] 16 18/45 Routine 04/18/2019 11:40 AM EDT from Last 3 Months or Most Recently Relevant to Health Maintenance Results * (ABNORMAL) POCT Hgb A1c (06/10/2025 10:52 AM EDT) Hemoglobin A1C 6.9(A) 4.0 - 5.7 % QC Media Lot # [id number] Lot# Expiration Date Blood 06/10/2025 10:5 2 AM EDT Grisel Meraz MD POINT OF CARE TEST ENTER/EDIT ORDERABLES Final Result * POCT Glucose (06/10/2025 10:52 AM EDT) Glucose Blood, POC 169 60 - 200 mg/dL QC Media Lot # [id number] Lot# Expiration Date Blood Capillary blood specimen / Unknown 06/10/2025 10:52 AM EDT Grisel Meraz MD POINT OF CARE TEST ENTER/EDIT ORDERABLES Final Result * POCT ROSELYN-14 Urine Drug Screen (06/03/2025 2:10 PM EDT) Only the most recent of2 resultswithin the time period is included. THC Negative Negative Cocaine Screen, Urine Negative Negative Opiate Screen, Urine Negative Negative Methamphetamine Screen Urine Negative Negative Amphetamine Screen, Urine Negative Negative Benzodiazepines Screen, Urine Negative Negative Barbiturate Screen, Urine Negative Negative Methadone Screen, Urine Negative Negative Buprenophine Screen, Urine Negative Negative TCA, Urine Negative Negative MDMA Urine Negative Negative ng/mL Oxycodone Screen, Urine Negative Negative Phencyclidine (PCP), Urine Negative Negative Propoxyphene, Urine Negative Negative Fentanyl, Urine Negative Negative Urine Urine specimen obtained by clean catch procedure / Unknown 06/03/2025 2:10 PM EDT Narrative Zoe Patrick RN - 06/03/2025 2:10 PM EDT . Internal Pass Control Lot# [id number] Exp: 07-04-26 Grisel Meraz MD POINT OF CARE TEST ENTER/EDIT ORDERABLES Final Result * Suture Removal (05/06/2025 2:14 PM EDT) Narrative Vince Gagnon MD - 05/06/2025 2:14 PM EDT Vince Gagnon MD 05/07/2025 9:47 PM Suture Removal Date/Time: 05/06/2025 2:14 PM Performed by: Vince Gagnon MD Authorized by: Vince Gagnon MD Consent: Consent obtained: Verbal Consent given by: Patient Risks discussed: Pain, bleeding and wound separation [place] protocol: Procedure explained and questions answered to patient or proxy's satisfaction: yes Relevant documents present and verified: no Test results available: no Imaging studies available: no Required blood products, implants, devices, and special equipment available: no Site/side marked: no Immediately prior to procedure, a time out was called: yes Patient identity confirmed: Verbally with patient Location: Location: Head/neck Head/neck location: Nose Procedure details: Wound appearance: No signs of infection, good wound healing, clean, nonpurulent and nontender Number of sutures removed: 4 Number of mynor removed: 0 Post-procedure details: Post-removal: No dressing applied Procedure completion: Tolerated well, no immediate complications us Vince Gagnon MD IN CLINIC/BEDSIDE ORDERABLE S Final Result * XR Lumbar Spine Complete 4+ Views (04/03/2025 3:38 PM EDT) Anatomical Region Laterality Modality Spine, L-spine Radiographic Sherita ging 04/03/2025 3:38 PM EDT Narrative 04/03/2025 3:56 PM EDT [place] [address] XRay Report Signed Patient: Za Mauro MR#: [id number] 946 : 1970 Acct:[id number] Age/Sex: 54 / F ADM Date: 04/03/25 Loc: HO.XRAY Attending Dr: Aster SCHWARTZ Ordering Physician: Aster Hay Date of Service: 04/03/25 Procedure(s): XR lumbar spine 4V min Accession Number(s): [id number] cc: Grisel Meraz MD; Aster Hay EXAMINATION: X-ray lumbar spine. CLINICAL INFORMATION: Low back pain. TECHNIQUE: AP oblique and lateral views. COMPARISON: Correlated to CT abdomen and pelvis dated April 16, 2021. FINDINGS: No acute cortical disruption or malalignment. No lytic or blastic lesions. Mild endplate sclerosis at multiple levels of the axial skeleton. Vascular clips right upper abdomen. Vascular calcifications, aorta. XR/XR lumbar spine 4V min IMPRESSION: Multilevel thoracolumbar spondylosis without acute fracture or listhesis. Atherosclerosis disease, aorta. Status post cholecystectomy. Electronically signed by: Og Joshi MD 04/03/2025 03:53 PM EDT Dictated By: Og Adams MD Signed By: <Electronically signed by Og Pierre MD in OV> 04/03/25 1553 DD/ 1538 TD/TT: 04/03/25 1544 Cradle Placer: Procedure Note Donotuseinterpreter, Image - 04/03/2025 [place] [address] XRay Report Signed Patient: Risa Mauro#: [id number] : 1970Acct:[id number] Age/Sex: 54 / FADM Date: 04/03/25 Loc: [facility] Attending Dr: Aster SCHWARTZ Ordering Physician: Aster Hay Date of Service: 04/03/25 Procedure(s): XR lumbar spine 4V min Accession Number(s): [id number] cc: Grisel Meraz MD; Aster Hay EXAMINATION: X-ray lumbar spine. CLINICAL INFORMATION: Low back pain. TECHNIQUE: AP oblique and lateral views. COMPARISON: Correlated to CT abdomen and pelvis dated April 16, 2021. FINDINGS: No acute cortical disruption or malalignment. No lytic or blastic lesions. Mild endplate sclerosis at multiple levels of the axial skeleton. Vascular clips right upper abdomen. Vascular calcifications, aorta. XR/XR lumbar spine 4V min IMPRESSION: Multilevel thoracolumbar spondylosis without acute fracture or listhesis. Atherosclerosis disease, aorta. Status post cholecystectomy. Electronically signed by: Og Joshi MD 04/03/2025 03:53 PM EDT RP Dictated By: Og Adams MD Signed By: <Electronically signed by Og Pierre MDin OV> 04/03/25 1553 DD/ 1538 TD/TT: 04/03/25 1544 Cradle Placer: us [facility] External Provider IMG XR PROCEDURES Final Result * Lipid Panel, Standard (11/22/2024 11:46 AM EDT) Triglycerides 137 <150 mg/dL [facility] Comment:Desirable Triglyceri de: less than 150 mg/dLBorderline High Triglyceride 150-199 mg/dLHigh Triglyceride: 200-499 mg/dLVery High Triglyceride: greater than or equal to 5OO mg/dL Cholesterol 159 <200 mg/dL [facility] Comment:Desirable Cholestero l: less than 200 mg/dLBorderline High Cholesterol: 200-239 mg/dLHigh Cholesterol: greater than 239 mg/dL LDL Cholesterol Calculated 78 <100 mg/dL [facility] Comment:Desirable LDL: less than 100 mg/dLNear Optimal/Above Optimal LDL: 110- 129 mg/dLBorderline High LDL: 130-159 mg/dLHigh LDL: 160-189 mg/dLVery High LDL: greater than or equal to 190 mg/dL HDL Cholesterol 54 >40 mg/dL [facility] Comment:Desirable HDL: great er than 40 mg/dL Note: This HDL assay may give artificially low results in patients with liver disease. 11/22/2024 11:4 6 AM EDT 11/22/2024 11:46 AM EDT us Generic External Data Provider LAB BLOOD ORDERAB LES Final Result [facility] [address] [place] [phone] * Albumin, Random Urine W/Creatinine (11/22/2024 11:22 AM EDT) Creatinine, Urine 123.70 mg/dL [facility] Microalbumin Urine 16.0 mg/L H [facility] Microalbum Creatinine Ratio Ur 12.9 <30 ug/mg cr [facility] Comment:Albumin/Creatinine R atio Reference Ranges: Normal: < 30 ug/mg creatinine Microalbuminuria: 30 - 300 ug/mg creatinineClinical Albuminuria: > 300 ug/mg creatinine 11/22/2024 11:2 2 AM EDT 11/22/2024 12:34 PM EDT us Generic External Data Provider LAB URINE ORDERAB LES Final Result Performing Organization Address City/[facility]/ZIP Co de Phone Number [facility] [address] [place] [address] [phone] * BI Mammogram Screening Bilateral (11/16/2023) Anatomical Region Laterality Modality Breast Bilateral Mammography Grisel Meraz MD IMG BI PROCEDURES Final Resul t * Hm Colonoscopy (09/12/2022 11:49 AM EST) Historical Provider HEALTH MAINTENANCE Final Result * HEPATITIS C AB W/REFL TO HCV RNA, QN, PCR (12/03/2021 12:00 AM EDT) HEPATITIS C ANTIBODY NON-REACT MICHAEL NON-REACT MICHAEL [facility] INDEX 0.01 <1.00 [facility] Comment: HCV antibody was non-reactive. There is no laboratory evidence of HCV infection. In most cases, no further action is required. However, if recent HCV exposure is suspected, a test for HCV RNA (test code 70017) is suggested. For additional information please refer to http://education.MySongToYou.QRuso/faq/SIS94z5 (This link is being provided for informational/ educational purposes only.) 12/03/2021 us Grisel Meraz MD HISTORICAL/NON ORDERABLE LABS Final Result Performing Organization Address City/[facility]/ZIP Co de Phone Number [facility] [address] * HIV 1/2 ANTIGEN/ANTIBODY,FOURTH GENERATION W/RFL (12/03/2021 12:00 AM EDT) Pathologist [facility] HIV-1/2 ANTIGEN AND ANTIBODIES, 4TH GENERATION W/ REFLEX NON-REACT MICHAEL NON-REACT MICHAEL [facility] Comment: HIV-1 antigen and HIV-1/HIV-2 antibodies were not detected. There is no laboratory evidence of HIV infection. PLEASE NOTE: This information has been disclosed to you from records whose confidentiality may be protected by state law. If your state requires such protection, then the state law prohibits you from making any further disclosure of the information without the specific written consent of the person to whom it pertains, or as otherwise permitted by law. A general authorization for the release of medical or other information is NOT sufficient for this purpose. For additional information please refer to http://StemSave.Feast/faq/LTT179 (This link is being provided for informational/ educational purposes only.) The performance of this assay has not been clinically validated in patients less than 2 years old. 12/03/2021 Grisel Meraz MD LAB BLOOD ORDERABLES Final Re sult [facility] [address] * HPV E6/E7 RFLX SONIA 16 18/45 (04/18/2019 11:40 AM EDT) Pathologist [facility] HPV 16 RNA Test not performed [facility] HPV 18/45 RNA Test not performed [facility] HPV mRNA E6/E7 Not Detected NOT DETECTED [facility] Comment: This test was performed using the APTIMA(R) HPV Assay ([employer] This assay detects E6/E7 viral messenger RNA (mRNA) from 14 high-risk HPV types (16,18,31,33,35,39,45,51, 52,56,58,59,66,68). For additional information please refer to: http://StemSave.Feast/faq/HAP173f6 (This link is being provided for informational/ educational purposes only.) The analytical performance characteristics of this assay have been determined by [employer] [place], [place]. The modifications have not been cleared or approved by the FDA. This assay has been validated pursuant to the CLIA regulations and is used for clinical purposes. Please note: Effective 05/16/2016, HPV testing will be performed using [employer]'s APTIMA test which targets mRNA. Detecting mRNA instead of DNA, as in older methods, offers significant improvements in specificity. ADDITIONAL TESTING Not indicated () [facility] Comment: Test Performed by [employer], [employer] [place], [address] [place], [place] Jorje Hendrickson M.D., Ph.D., Director of Laboratories , [place] [id number] 04/18/2019 11:4 0 AM EDT us Grisel Meraz MD HISTORICAL/NON ORDERABLE LABS Final Result Performing Organization Address City/State/[facility] Co de Phone Number [facility] [address] from Last 3 Months or Most Recently Relevant to Health Maintenance Insurance 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
--- OUTSIDE RECORDS SUMMARY | 2025-06-19 16:37 | XMS_ITS | Encounter Summary ---
Author Organization [employer] [facility] Address [address] [place] [address] Care Team Providers Care Automobile Mechanic Motor Name Role Phone Grisel Meraz MD Primary Care Provider [phone] Encounter Details Date Type Department Care Team Description 11/01/[address] [facility] Oncology Services [address] [place] [address] Grabiel Silva [facility] Social History Tobacco Use Types Packs/Day Years [...] on filedocumented in this encounter Care Teams Automobile Mechanic Motor Relationship Specialty Start Date End Date Grisel Meraz MD [address] [facility] [place] [address] PCP - General Pediatrics 09/16/22 documented as of this encounter
--- OUTSIDE RECORDS SUMMARY | 2025-06-19 16:37 | XMS_ITS | Encounter Summary ---
Author Organization [employer] Address [address] [address] Care Team Providers Care Pipe Fittings Molder Name Role Phone Grisel Meraz MD Primary Care Provider [phone] Reason for Visit * Reason Onset Date Comments Appointment Request 02/22/2023 Encounter Details Date Type Department Care Team ([facility] Contact Info) Description 02/22/2023 Telephone [facility] CHC MED & PEDS [address] [place] [address] Grisel Meraz MD [address] [place] [address] Appointment Request Social History Tobacco Use Types [...] are being required. Please contact pt at [phone] Maltese Speaker documented in this encounter Plan of Treatment Upcoming Encounters Date Type Department Care Team (Late st Contact Info) Description 07/08/2025 12:45 PM EST Office Visit [facility] ADULT DENTAL [address] [place] [address] Jose Gagnon 07/24/2025 2:00 PM EST Clinical Support [facility] MED & PEDS [address] [place] [address] Zoe Patrick, TREVER [address] [place] [address] 07/30/2025 9:45 AM EST Procedure Visit [facility] MED & PEDS [address] [place] [address] Grisel Meraz MD [address] [place] [address] 10/21/2025 2:30 PM EST Office Visit [facility] OPTOMETRY [address] [place] [address] Tarka, Lolita, OD [address] [place] [address] documented as of this encounter Visit Diagnoses Not on filedocumented in this encounter Additional Health Concerns Assessment Noted Time PHQ-9 Depression Total Score: 21 023 11:24 AM EST documented as of this encounter Care Teams Pipe Fittings Molder Relationship Specialty Start Date End Date Grisel Meraz MD [address] [place] [address] PCP - General Family Medicine 03/06/19 documented as of this encounter
--- OUTSIDE RECORDS SUMMARY | 2025-06-19 16:37 | XMS_ITS | Clinical Summary ---
Author Organization [facility] Address [address] [place] [address] Phone Care Team Providers Care Putaway Driver Name Role Phone Grisel Meraz MD Primary Care Provider [phone] Allergies Active Allergy Reactions Criticality Noted Date [...] Problem Noted Date Diagnosed Date Non-Hodgkin's lymphoma ([facility] V24, [facility] V28 ) 09/29/2022 Immunizations Immunization Administration Dates Next Due Moderna SARS-CoV-2 COVID-19, mRNA, LNP-S, preservative free 02/11/2021,01/14/2021 Medical History Medical History Date Comments Diabetes mellitus ([facility] V24, [facility] V28) Colon cancer ([facility] V24, [facility] V28) Family History Medical History Relation Name [...] Description 11/12/2025 3:30 PM EDT Office Visit [facility] Hematology Oncology [address] [place] [address] Nirmal Cooper MD [address] [place] [address] Health Maintenance Due Date Last Done Comments Breast Cancer Screening 1972 Colorectal Cancer Screening: Colonoscopy 1972 Diabetes: Annual Foot Exam 1982 Diabetes: Annual Retina Eye Exam 1982 Hepatitis B Vaccines (1 of 3 - 19+ 3-dose series) 1991 Cervical Cancer Screening: Pap Smear 1993 Pneumococcal Vaccine: 50+ Years (2 of 2 - PCV) 03/10/2015 03/10/2014 Social Influencers of Health Screening 08/16/2022 RSV Immunization Adult Patients (1 - Risk 50-74 years 1-dose series) 2022 Diabetes: Annual Urine Albumin-Creatinine Ratio (uACR) 07/17/2024 Depression Screening 09/04/2024 COVID-19 Vaccine ( season) 2025 10/27/2022, 12/13/2021, [...] Procedure Name Priority Date/Time Associated Diagnosis Comments COMPREHENSIVE METABOLIC PANEL STAT 09/25/2024 7:30 PM EST LIPID PANEL Routine 09/06/2023 HEPATITIS C SCREENING Routine 11/21/2022 HIV SCREENING Routine 12/03/2021 HEMOGLOBIN A1C Routine 12/03/2021 from Last 3 Months or Most Recently Relevant to Health Maintenance Results * (ABNORMAL) Comprehensive metabolic panel (09/25/2024 7:30 PM EST) Sodium 131(L) 133 - 145 mmol/L LAB CHEMISTRY METHOD 09/25/2024 8:[address] [facility] Potassium 4.1 3.5 - 5.5 mmol/L LAB CHEMISTRY METHOD 09/25/2024 8:[address] [facility] Chloride 100 96 - 110 mmol/L LAB CHEMISTRY METHOD 09/25/2024 8:[address] [facility] CO2 28 21 - 32 mmol/L LAB CHEMISTRY METHOD 09/25/2024 8:[address] [facility] Anion Gap 3 3 - 11 LAB CHEMISTRY METHOD 09/25/2024 8:[address] [facility] Glucose 310(H) 70 - 100 mg/dL LAB CHEMISTRY METHOD 09/25/2024 8:[address] [facility] BUN 11 5 - 25 mg/dL LAB CHEMISTRY METHOD 09/25/2024 8:[address] [facility] Creatinine 0.76 0.50 - 1.10 mg/dL LAB CHEMISTRY METHOD 09/25/2024 8:[address] [facility] eGFR 94 >=60 mL/min/1. 73m2 LAB CHEMISTRY METHOD 09/25/2024 8:[address] [facility] Comment:Calculation based on the Chronic Kidney Disease Epidemiology Collaboration (CKD-EPI) equation refit without adjustment for race. BUN/Creatinine Ratio 14.5 LAB CHEMISTRY METHOD 09/25/2024 8:[address] [facility] Calcium 9.3 8.5 - 10.5 mg/dL LAB CHEMISTRY METHOD 09/25/2024 8:[address] [facility] AST (SGOT) 33 10 - 42 unit/L LAB CHEMISTRY METHOD 09/25/2024 8:[address] [facility] ALT (SGPT) 46 10 - 60 unit/L LAB CHEMISTRY METHOD 09/25/2024 8:[address] [facility] Alkaline Phosphatase 103 42 - 121 unit/L LAB CHEMISTRY METHOD 09/25/2024 8:[address] [facility] Total Protein 7.9 6.0 - 8.0 g/dL LAB CHEMISTRY METHOD 09/25/2024 8:[address] [facility] Albumin 4.1 3.2 - 5.0 g/dL LAB CHEMISTRY METHOD 09/25/2024 8:[address] [facility] Total Bilirubin 0.6 0.0 - 1.4 mg/dL LAB CHEMISTRY METHOD 09/25/2024 8:[address] [facility] Blood Venous blood specimen / Unknown Venipuncture / Unknown 09/25/2024 7:30 PM EST 09/25/2024 7:37 PM EST Savage Frank DO LAB BLOOD ORDERABLES Final Resu lt CHEMO [facility] [address] [place] [address], * Lipid panel (09/06/2023) LDL/HDL Ratio 0 Triglycerides 0 mg/dL Cholesterol 0 mg/dL HDL 0 mg/dL LDL Cholesterol 0 mg/dL Blood Venous blood specimen / Unknown Historical Provider LAB BLOOD ORDERABLES Prema l Result * Hepatitis C Screening (11/21/2022) Pathologist formerly [facility] Hepatitis C Screening Abstracted Historical Provider HEALTH MAINTENANCE Final Result * HIV Screening (12/03/2021) Pathologist [facility] HIV Screening Abstracted Historical Provider HEALTH MAINTENANCE Final Result * Hemoglobin A1c (12/03/2021) Pathologist [facility] Hemoglobin A1C 0.0 % Blood Venous blood specimen / Unknown Result [facility] Historical Provider LAB BLOOD ORDERABLES Prema l Result from Last 3 Months or Most Recently Relevant to Health Maintenance Insurance [place]ICA[place] - [place] [facility] AMANDA ESPINOZA [id number] Care Teams Putaway Driver Relationship Specialty Start Date End Date Grisel Meraz MD [address] [place] [phone] PCP - General 09/16/22
--- OUTSIDE RECORDS SUMMARY | 2025-06-19 16:37 | XMS_ITS | Encounter Summary ---
Author Organization [employer] Address [address] [facility] [address] [place] [address] Care Team Providers Care Integration Developer Name Role Phone Grisel Meraz MD Primary Care Provider [phone] Encounter Details Date Type Department Care Team ([facility] st Contact Info) Description 07/11/2023 Abstract [facility] MEDICINE [address] [place] [address] Grisel Meraz MD [address] [place], [place] [phone] Social History Tobacco Use Types Packs/Day Years [...] Description 07/08/2025 12:45 PM EST Office Visit [facility] ADULT DENTAL [address] [place] [address] Jose Gagnon 07/24/2025 2:00 PM EST Clinical Support [facility] MED & PEDS [address] [place] [address] Zoe Patrick RN [address] [place] [address] 07/30/2025 9:45 AM EST Procedure Visit [facility] MED & PEDS [address] [place] [address] Grisel Meraz MD [address] [place] [address] 10/21/2025 2:30 PM EST Office Visit [facility] OPTOMETRY [address] [place] [address] Lolita Jenkins, OD [address] [place] [address] documented as of this encounter Procedures Procedure Name Priority Date/Time Associated Diagnosis Comments COLONOSCOPY Routine 11/22/2016 documented in this encounter Results * Hm Colonoscopy (11/22/2016) Colonoscopy Normal Normal Narrative Vandana Vianey - 11/22/2016 Recommended 5 year follow up Historical Provider HEALTH MAINTENANCE Final Result documented in this encounter Visit Diagnoses Not on filedocumented in this encounter Additional Health Concerns Assessment Noted Time PHQ-9 Depression Total Score: 21 023 11:24 AM EST documented as of this encounter Care Teams Integration Developer Relationship Specialty Start Date End Date Grisel Meraz MD [address] [place] [address] PCP - General Family Medicine 03/06/19 documented as of this encounter
--- OUTSIDE RECORDS SUMMARY | 2025-06-19 16:37 | XMS_ITS | Encounter Summary ---
Author Organization [employer] Address [address] [facility] [address] [place] [address] Care Team Providers Care Arson Investigator Name Role Phone Grisel Meraz MD Primary Care Provider [phone] Encounter Details Date Type Department Care Team ([facility] st Contact Info) Description 04/04/2025 Orders Only [facility] CHC MED & PEDS [address] [place], [place] [phone] Provider, MD Silverio Social History Tobacco Use [...] Description 07/08/2025 12:45 PM EST Office Visit [facility] ADULT DENTAL [address] [place] [address] Jose Gagnon 07/24/2025 2:00 PM EST Clinical Support [facility] MED & PEDS [address] [place] [address] Zoe Patrick RN [address] [place] [address] 07/30/2025 9:45 AM EST Procedure Visit [facility] MED & PEDS [address] [place] [address] Grisel Meraz MD [address] [place] [address] 10/21/2025 2:30 PM EST Office Visit [facility] OPTOMETRY [address] [place] [address] Lolita Jenkins, OD [address] [place] [address] documented as of this encounter Procedures Procedure Name Priority Date/Time Associated Diagnosis Comments HM COLONOSCOPY Routine 09/12/2022 11:49 AM EST documented in this encounter Results * Hm Colonoscopy (09/12/2022 11:49 AM EST) us Historical Provider HEALTH MAINTENANCE Final Result documented in this encounter Visit Diagnoses Not on filedocumented in this encounter Additional Health Concerns Assessment Noted Time PHQ-9 Depression Total Score: 0 12/05/19 25 11:11 AM EDT documented as of this encounter Care Teams Arson Investigator Relationship Specialty Start Date End Date Grisel Meraz MD [address] [place] [address] PCP - General Family Medicine 03/06/19 documented as of this encounter
--- OUTSIDE RECORDS SUMMARY | 2025-06-19 16:37 | XMS_ITS | Encounter Summary ---
Author Organization [employer] Address [address] [address] Care Team Providers Care Road Machine Runner Name Role Phone Grisel Meraz MD Primary Care Provider [phone] Reason for Visit * Reason Onset Date Comments Record Request 04/05/2023 Encounter Details Date Type Department Care Team ([facility] st Contact Info) Description 04/05/2023 Telephone [facility] CHC MED & PEDS [address] [place] [address] Grisel Meraz MD [address] [place] [address] Record Request Social History Tobacco Use Types [...] - 04/05/2023 11:24 AM EDT TC from [facility] with [facility]. States had placed requests for physician Summary form , along with copies of last Physical , last office visit , and med list . documented in this encounter Plan of Treatment Upcoming Encounters Date Type Department Care Team (Late st Contact Info) Description 07/08/2025 12:45 PM EST Office Visit [facility] ADULT DENTAL [address] [place] [address] Jose Gagnon 07/24/2025 2:00 PM EST Clinical Support [facility] MED & PEDS [address] [place] [address] Zoe Patrick, TREVER [address] [place] [address] 07/30/2025 9:45 AM EST Procedure Visit [facility] MED & PEDS [address] [place] [address] Grisel Meraz MD [address] [place] [address] 10/21/2025 2:30 PM EST Office Visit [facility] OPTOMETRY [address] [place] [address] TarkaLolita, OD [address] [place] [address] documented as of this encounter Visit Diagnoses Not on filedocumented in this encounter Additional Health Concerns Assessment Noted Time PHQ-9 Depression Total Score: 21 023 11:24 AM EST documented as of this encounter Care Teams Road Machine Runner Relationship Specialty Start Date End Date Grisel Meraz MD [address] [place] [address] PCP - General Family Medicine 03/06/19 documented as of this encounter
--- OUTSIDE RECORDS SUMMARY | 2025-06-19 16:37 | XMS_ITS | Encounter Summary ---
Author Organization [employer] Address [address] [facility] 7 [place] [address] Care Team Providers Care Junior Programmer Analyst Name Role Phone Grisel Meraz MD Primary Care Provider [phone] Encounter Details Date Type Department Care Team ([facility] st Contact Info) Description 09/06/2024 Orders Only [facility] CHC MED & PEDS [address] [place] [address] Grisel Meraz MD [address] [place] [address] Boils of multiple sites (Primary Dx) Social [...] 07/08/2025 12:45 PM EST Office Visit [facility] ADULT DENTAL [address] [place] [address] Jose Gagnon 07/24/2025 2:00 PM EST Clinical Support [facility] MED & PEDS [address] [place] [address] Zoe Patrick RN [address] [place] [address] 07/30/2025 9:45 AM EST Procedure Visit [facility] MED & PEDS [address] [place] [address] Grisel Meraz MD [address] [place] [address] 10/21/2025 2:30 PM EST Office Visit [facility] OPTOMETRY [address] [place], [place] [phone] Lolita Jenkins, OD [address] [place] [address] documented as of this encounter Visit Diagnoses Diagnosis Boils of multiple sites- Primary documented in this encounter Additional Health Concerns Assessment Noted Time PHQ-9 Depression Total Score: 21 023 11:24 AM EST documented as of this encounter Care Teams Junior Programmer Analyst Relationship Specialty Start Date End Date Grisel Meraz MD [address] [place] [address] PCP - General Family Medicine 03/06/19 documented as of this encounter
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
--- OUTSIDE RECORDS SUMMARY | 2025-06-19 16:37 | XMS_ITS | Encounter Summary ---
Author Organization [employer] Address [address] [place] [address], [place] [address] Care Team Providers Care Caving Guide Name Role Phone Grisel Meraz MD Primary Care Provider [phone] Encounter Details Date Type Department Care Team (Latest Contact Info) Description 07/06/2022 Abstract [facility] CONVERSIONS Dental, Provider, DDS Social History Tobacco [...] 07/08/2025 12:45 PM EST Office Visit [facility] [address] [place] [address] Jose Gagnon 07/24/2025 2:00 PM EST Clinical Support [facility] [address] [place] [address] Zoe Patrick, RN [address] [place] [address] 07/30/2025 9:45 AM EST Procedure Visit [facility] [address] [place] [address] Grisel Meraz MD [address] [place] [address] 10/21/2025 2:30 PM EST Office Visit [facility] [address] [place], [place] [phone] Lolita Jenkins, OD [address] [place] [address] documented as of this encounter Visit Diagnoses Not on filedocumented in this encounter Care Teams Caving Guide Relationship Specialty Start Date End Date Grisel Meraz MD [address] [place] [id number] PCP - General Family Medicine 03/06/19 documented as of this encounter
--- OUTSIDE RECORDS SUMMARY | 2025-06-19 16:37 | XMS_ITS | Clinical Summary ---
Author Organization [facility] Address [address] [place] [address] Care Team Providers Care Nursing Home Administrator Name Role Phone Grisel Meraz MD Primary Care Provider [phone] Allergies Active Allergy Reactions Criticality Noted Date [...] tablet by mouth daily. 0 07/08/2022 Active New Freedom-3 Fatty Acids (Fish Oil) 1000 MG CAPS [...] age to complete this topic Care Teams Nursing Home Administrator Relationship Specialty Start Date End Date Grisel Meraz MD [address] [place], [place] [phone] PCP - General Pediatrics 09/16/22
== END 2025-06-19 13:45 | disposition home or self-care (01) ==
LOC: HO.ENCR 13:17
PROVIDERS: PCP Pediatrics; Visit Provider Registered Nurse Diabetes Educator
DX: E11.65 Type 2 diabetes mellitus with hyperglycemia (principal); Z79.4 Long term (current) use of insulin

== ENCOUNTER → 2025-06-19 13:17 | Outpatient (BNVA) | payer MEDICARE, MEDICAID, SELFPAY | PROVIDERS: PCP Pediatrics; Visit Provider Registered Nurse Diabetes Educator | DX: E11.65 Type 2 diabetes mellitus with hyperglycemia (principal); Z96.41 Presence of insulin pump (external) (internal) | CPT/HCPCS: 99211 ==

== ENCOUNTER 2025-07-21 14:12 | Outpatient (AMB) | payer MEDICARE, MEDICAID, SELFPAY ==
--- NOTE | 2025-07-21 14:18 | A.OFFVIS_ITS ---
Vital Signs 07/21/25 14:21 Height 5 ft 5 in Weight 167 lb 8.821 oz BMI 27.9 BP 130/74 Blood Pressure Location Rt brachial Position Sitting Pulse Source Pulse Oximeter Oxygen Delivery Method Room Air Intake Visit Reasons: DM Intake Note: Patient presents today for a follow-up on Type 1 Diabetes Mellitus/iLet Insulin Pump: Last Diabetic eye exam was on: [facility] Last Podiatry exam was on: Does not see a Operations Chief Most recent HbA1c: 7.4%, 07/21/2025 Random Glucose: 144 mg/dL, Today Flight Software Test Engineer Required: Yes Flight Software Test Engineer Language: Program/Music Director Services: Flight Software Test Engineer Present Flight Software Test Engineer [facility] Information Interpreted: non-clinical & clinical Accompanied by: Self / Same As Patient Allergies acetaminophen (From Percocet) Allergy (Severe, Verified 04/01/25 14:28) Anaphylaxis oxycodone (From Percocet) Allergy (Severe, Verified 04/01/25 14:28) Anaphylaxis Vicodin Allergy (Unknown, Uncoded 03/13/25 14:38) Anaphylaxis HPI Comments Details: 54-year-old female Type 2 diabetic diagnosed approximately 2017 who is now back on an ilet insulin pump after a several month hiatus due to having had site infections at both the pump insertion set and sensor site. Current diabetes regime pioglitazone 15 mg stopped ilet pump rare hypoglycemia Dexcom shows average of 189.5 GMI of 7.8 20.3% very high 25.3% high 52.2 in range 1.1 low 0.1 very low She has a getting an average of 79.6 units of insulin daily 41.4 units basal Announces 1 meal a day lunch. States was not anoucing because pump cable broken Denies retinopathy. Last exam this mo . Has retinopathy- getting injections Has neuropathy: Symptoms: + numbness, tingling and cramping in legs No Nephropathy:09/2023 microalbumin 8.0 10/29 eGFR>60 on low dose radha-1 Has HLD on statin 10/29 ldl 78 She complains of some shortness of breath intermittent but not at present. Non exertional. She denies chest pain. Denies symptoms of claudication. Has strong family hx of Type 2 DM Exercise - walks PFSH Medical History Cellulitis Right groin pain Arthritis Elevated LFTs Fibromyalgia Bunion, left foot Migraine Asthma Seasonal allergies Mood disorder Joint pain Hyperlipidemia LDL goal <100 Type 2 diabetes mellitus with polyneuropathy Type 2 diabetes mellitus with hyperglycemia Surgical History Hx of colonoscopy (~2018) Hx of cholecystectomy Hx of foot surgery History of bilateral carpal tunnel release Hx of cataract surgery Family History Father Hypertension Mother Diabetes Colon cancer Brother Liver cancer Social History Household Members: Other Household Members Other:: Sister Alcohol intake: current Alcohol intake frequency: does not drink Patient Tobacco Use Status: Never used Tobacco Physical Exam Absence of Cushingoid features. Absence of acromegalic features. Neck exam reveals nl size thyroid about 15 gms. No thyroid nodules palpable. No carotid bruits present. Lungs CTA. Heart S1 S2, Reg R/R. No M/R/ G. Skin exam reveals absence of vitiligo or acanthosis nigricans. Abdominal exam reveals Soft NT/ND with NA BS. No organomegaly present. Neck Other: . Extrem Other: Visual exam of foot performed. No ulcerations or open lesions. No onchomycosis, no callouses.Pulses 2 + distally Sensation iloss to monofilament exam. Vibratory sensation sensed is idecreased with 128 Hz tuning fork Results AMB Hemoglobin A1c AMB Hemoglobin A1c 7.4 % Last Edit by YUSUF Linares on 07/21/25 14:37 Assessment & Plan Assessment & Plan (1) Type 2 diabetes mellitus with hyperglycemia: Code(s): E11.65 - Type 2 diabetes mellitus with hyperglycemia Category: Medical Qualifiers: Diabetes mellitus long term acute care registered nurse insulin use: with alf use Qualified Code(s): E11.65 - Type 2 diabetes mellitus with hyperglycemia; Z79.4 - long-term (current) use of insulin Plan: This is a 53-year-old female with history of type 2 diabetes being treated with Actos and iLet pump with good but not optimal glycemic control and known microvascular complications namely neuropathy. Plan is continue the current management. We will have patient follow up with CDE in 2 months. We will stressed the patient need to announce meals. She complains of dry mouth and diffuse pain and has seen Rheumatology in the past I told her to schedule follow up with the primary care provider to discuss these complaints. I will also discontinue the pioglitazone as the patient is complaining of shortness of breath on exertion although I do not see any signs of congestive heart failure Orders: Orders AMB Hemoglobin A1c Today E11.65 - Type 2 diabetes mellitus with hyperglycemia, Z79.4 - ad terminal makeup operator (current) use of insulin Coding Level of Care Code Est Pt Level 4 (12735) Complex EM visit Add On G2211 Diagnoses Type 2 diabetes mellitus with hyperglycemia, with long-term current use of insulin E11.65; Z79.4 Diabetes mellitus alf insulin use: with alf use
[2025-07-21 14:21] VITALS: BP 130/74; BMI 27.9
[2025-07-21 14:31] LABS: Glucose, Whole Blood 144 mg/dL (60-115)
--- OUTSIDE RECORDS SUMMARY | 2025-07-22 03:59 | XMS_ITS | Clinical Summary ---
Author Organization [facility] Address [address] [place] [address] Phone Care Team Providers Care Business Area Director Name Role Phone Grisel Meraz MD Primary Care Provider [phone] Allergies Active Allergy Reactions Criticality Noted Date [...] Problem Noted Date Diagnosed Date Non-Hodgkin's lymphoma ([facility] V24, [facility] V28 ) 09/29/2022 Immunizations Immunization Administration Dates Next Due Moderna SARS-CoV-2 COVID-19, mRNA, LNP-S, preservative free 02/11/2021,01/14/2021 Medical History Medical History Date Comments Diabetes mellitus ([facility] V24, [facility] V28) Colon cancer ([facility] V24, [facility] V28) Family History Medical History Relation Name [...] Description 11/12/2025 3:30 PM EDT Office Visit [facility] Hematology Oncology [address] [place] [address] Nirmal Cooper MD [address] [place] [address] Health Maintenance Due Date Last Done Comments [...] [facility] Comment:Calculation based on the Chronic [...] LAB BLOOD ORDERABLES Final Resu lt CHEMO [facility] [address] [place] [address], * Lipid panel (09/06/2023) LDL/HDL Ratio 0 Triglycerides 0 mg/dL Cholesterol 0 mg/dL HDL 0 mg/dL LDL Cholesterol 0 mg/dL Blood Venous blood specimen / Unknown Historical Provider LAB BLOOD ORDERABLES Prema l Result * Hepatitis C Screening (11/21/2022) Pathologist [facility] Hepatitis C Screening Abstracted Historical Provider HEALTH MAINTENANCE Final Result * HIV Screening (12/03/2021) Pathologist [facility] HIV Screening Abstracted Historical Provider HEALTH MAINTENANCE Final Result * Hemoglobin A1c (12/03/2021) Pathologist [facility] Hemoglobin A1C 0.0 % Blood Venous blood specimen / Unknown Result [facility] Historical Provider LAB BLOOD ORDERABLES Prema l Result from Last 3 Months or Most Recently Relevant to Health Maintenance Insurance MEDICAID - [place] [facility] AMANDA ESPINOZA [id number] Care Teams Business Area Director Relationship Specialty Start Date End Date Grisel Meraz MD [address] [place] [phone] PCP - General 09/16/22
== END 2025-07-21 14:44 | disposition home or self-care (01) ==
LOC: HO.ENCR 14:13
PROVIDERS: PCP Pediatrics; Visit Provider Internal Medicine Endocrinology, Diabetes & Metabolism
DX: E11.65 Type 2 diabetes mellitus with hyperglycemia (principal); Z79.4 Long term (current) use of insulin
CPT/HCPCS: 99214; G2211

== ENCOUNTER → 2025-07-21 14:12 | Outpatient (BNVA) | payer MEDICARE, MEDICAID, SELFPAY | PROVIDERS: PCP Pediatrics; Visit Provider Internal Medicine Endocrinology, Diabetes & Metabolism | DX: E11.40 Type 2 diabetes mellitus with diabetic neuropathy, unspecified (principal); E11.65 Type 2 diabetes mellitus with hyperglycemia; Z96.41 Presence of insulin pump (external) (internal) | CPT/HCPCS: 82947; 83036; 99212 ==

== ENCOUNTER 2025-08-20 19:14 | Outpatient (REF) | payer MEDICARE, MEDICAID, SELFPAY ==
--- OUTSIDE RECORDS SUMMARY | 2025-08-20 09:15 | XMS_ITS | Encounter Summary ---
Author Organization [employer] Address [address] [place] [address] [address] [address] Care Team Providers Care Articulation Officer Name Role Phone Grisel Meraz MD Primary Care Provider [phone] Reason for Referral * Imaging (Routine) - Authorized Specialty Diagnoses / Procedures Referred By Contac t Referred To Contact Radiology Diagnoses Breast cancer screening by mammogram Procedures BI Mammogram Screening Tomosynthesis Bilateral Grisel Meraz MD [address] [place] [address] Phone: tel: fax: [facility] Referral ID Status Reason Start Date Expiration Date V isits Requested Visits Authorized [id number] Authorized 2025 2026 1 1 Encounter Details Date Type Department Care Team (Latest Contact Info) Description 2025 9:15 AM EST Procedure Visit [facility] CHC MED & PEDS [address] [place], [place] [phone] Grisel Meraz MD [address] [place] [address] Encounter for immunization (Primary Dx); Encounter for gynecological examination (general) (routine) without abnormal findings; Breast cancer screening by mammogram; B-cell lymphoma of intra-abdominal lymph nodes, unspecified B-cell lymphoma type (CMS/HCC) (HCC); Diabetes mellitus, labile (HCC) Social History Tobacco Use Types Packs/Day Years [...] Access Q2 Not on file 06/10/2025 Comments No Sex and Gender Information Value Date Recorded Sex Assigned at Female 07/04/2022 10:24 AM EDT Legal Sex Female 10:24 AM EDT Gender Identity Choose not to disclose 10:24 AM EDT Sexual Orientation Choose not to disclose 2021 10:24 AM EDT documented as of this encounter Last Filed Vital Signs Vital Sign Reading Time Taken Comments Blood Pressure 110/70 2025 9:23 AM EST Pulse 100 2025 9:23 AM EST Temperature 36.2 C (97.2 F) 2025 9:23 AM EST Respiratory Rate 20 2025 9:23 AM EST Oxygen Saturation - - Inhaled Oxygen Concentration - - Weight 72.6 kg (160 lb) 2025 9:23 AM EST Height - - Body Mass Index 26.63 06/10/2025 10:50 AM EDT documented in this encounter Progress Notes * Grisel Meraz MD - 2025 9:15 AM EST Subjective Za Mauro is a 55 y.o. No obstetric history on file. woman here for pap. LMP:absent Menses frequency:absent Menses concerns:N/A Desires within the next year:not applicable [facility] control:n/A Breast concerns:no Negative for: any concerns Menopausal symptoms negative for: hot flashes, night sweats, urinary incontinence and vaginal dryness. Review of Systems Review of Systems Constitutional: Negative for activity change, appetite change, fever and unexpected weight change. Respiratory: Negative for cough. Genitourinary: Negative for difficulty urinating, enuresis, genital sores, hematuria, pelvic pain, vaginal bleeding, vaginal discharge and vaginal pain. Psychiatric/Behavioral: The patient is nervous/anxious. No results found for: PAPPA No results found for: HMMAMMO Previous paps:normal in 2018 Mammogram: normal in 2023 Objective BP 110/70 (BP Location: Left arm, Patient Position: Sitting, BP Cuff Size: Adult) [id number] Temp 97.2 ??F (36.2 ??C) (Oral) Resp 20 Wt 160 lb (72.6 kg) BMI 26.63 kg/m?? Physical Exam Vitals reviewed. Exam conducted with a director of diversity and inclusion present. Abdominal: Hernia: There is no hernia in the left inguinal area or right inguinal area. Genitourinary: General: Normal vulva. Pubic Area: No rash. Labia: Right: No rash or lesion. Left: No rash or lesion. Vagina: Normal. No vaginal discharge, bleeding or lesions. Cervix: Normal. No cervical motion tenderness, discharge, friability, lesion, erythema or cervical bleeding. Uterus: Normal. Adnexa: Right adnexa normal and left adnexa normal. Right: No tenderness. Left: No tenderness. Rectum: External hemorrhoid present. Lymphadenopathy: Lower Body: No right inguinal adenopathy. No left inguinal adenopathy. Problem List Items Addressed This Visit None Pap with HPV testing done STI testing offered but not needed Preventative care and harm reduction discussed. Not using estrogen vaginal cream at this time,states doesn't need it. F/U with oncologist for lymphoma in remission f/u as planned.DM better controlled,on insulin pump now.Sees endocrine.Flu vax received today and new mammogram ordered.Advised not to miss. documented in this encounter Plan of Treatment Upcoming Encounters Date Type Department Care Team (Late st Contact Info) Description 10/21/2025 2:30 PM EST Office Visit [facility] OPTOMETRY [address] [place], [place] [phone] TarkaLolita, OD [address] [place] [address] 11/18/2025 11:30 AM EDT Office Visit [facility] CHC MED & PEDS [address] [place], [place] [phone] Grisel Meraz MD [address] [place], [place] [phone] Scheduled Orders Name Type Priority Associated Diagnoses Orde r Schedule Pap Smear Pathology and Cytology Routine Encounter for gynecological examination (general) (routine) without abnormal findings Ordered: 2025 BI Mammogram Screening Tomosynthesis Bilateral Imaging Routine Breast cancer screening by mammogram Expected: 2025, Expires: 10/21/2026 documented as of this encounter Goals Goal Patient Goal Type Associated Problems Recent Progress Patient-Stated? Author Help patients manage their type 2 diabetes Care Plan Help patients manage their type 2 diabetes No Scar Alejandra Weekly blood pressure task Care Plan Weekly blood pressure task No Scar Alejandra Help patients manage their type 2 diabetes Care Plan Help patients manage their type 2 diabetes No Scar Alejandra Patient has chronic kidney disease Care Plan Patient has chronic kidney disease No Scar Alejandra Weekly blood pressure task Care Plan Weekly blood pressure task No Scar Alejandra Patient has chronic kidney disease Care Plan Patient has chronic kidney disease No Scar Alejandra Weekly blood pressure task Care Plan Weekly blood pressure task No Marina Zelaya DDS Weekly blood pressure task Care Plan Weekly blood pressure task No Marina Zelaya DDS Patient has chronic kidney disease Care Plan Patient has chronic kidney disease No Marina Zelaya DDS Patient has chronic kidney disease Care Plan Patient has chronic kidney disease No Marina Zelaya DDS Weekly blood pressure task Care Plan Weekly blood pressure task No Alisa Gonsales [place] Weekly blood pressure task Care Plan Weekly blood pressure task No Alisa Gonsales [place] Patient has chronic kidney disease Care Plan Patient has chronic kidney disease No Alisa Gonsales [place] Patient has chronic kidney disease Care Plan Patient has chronic kidney disease No Alisa Gonsales [place] Weekly blood pressure task Care Plan Weekly blood pressure task No Alisa Gonsales [place] Weekly blood pressure task Care Plan Weekly blood pressure task No Alisa Gonsales [place] Patient has chronic kidney disease Care Plan Patient has chronic kidney disease No Alisa Gonsales [place] Patient has chronic kidney disease Care Plan Patient has chronic kidney disease No Alisa Gonsales [place] documented as of this encounter Visit Diagnoses Diagnosis Encounter for immunization- Primary Encounter for gynecological examination (general) (routine) without abnormal findings Breast cancer screening by mammogram B-cell lymphoma of intra-abdominal lymph nodes, unspecified B-cell lymphoma type (CMS/HCC) (HCC) Diabetes mellitus, labile (HCC) Type II or unspecified type diabetes mellitus without mention of complication, not stated as uncontrolled documented in this encounter Additional Health Concerns Active Problems Noted Date Diagnosed Date Help patients manage their type 2 diabetes 08/14 Weekly blood pressure task 08/14/2025 Help patients manage their type 2 diabetes 08/14 Patient has chronic kidney disease 08/14/2025 Weekly blood pressure task 08/14/2025 Patient has chronic kidney disease 08/14/2025 Weekly blood pressure task 08/14/2025 Weekly blood pressure task 08/14/2025 Patient has chronic kidney disease 08/14/2025 Patient has chronic kidney disease 08/14/2025 Weekly blood pressure task 08/19/2025 Weekly blood pressure task 08/19/2025 Patient has chronic kidney disease 08/19/2025 Patient has chronic kidney disease 08/19/2025 Weekly blood pressure task 08/19/2025 Weekly blood pressure task 08/19/2025 Patient has chronic kidney disease 08/19/2025 Patient has chronic kidney disease 08/19/2025 Assessment Noted Time PHQ-9 Depression Total Score: 0 12/05/19 25 11:11 AM EDT documented as of this encounter Care Teams Articulation Officer Relationship Specialty Start Date End Date Grisel Meraz MD [address] [place] [phone] PCP - General Family Medicine 03/06/19 documented as of this encounter
--- OUTSIDE RECORDS SUMMARY | 2025-08-20 21:10 | XMS_ITS ---
Author Organization [email or web address] [facility] [employer] [facility] Prior to 02/01/25 Address [address] [place] [address] Care Team Providers Care Deposit Refund Clerk Name Role Phone Grisel Meraz MD Primary Care Provider [phone] Active Problems Problem Noted Date Diagnosed Date Non-Hodgkin's lymphoma 09/29/2022 Current Oncology Plans No current plan information found. Past Plans ONCOLOGY TREATMENT Plan Name Start Date Discontinue Date Treatment Medications Discontinue Reason Plan Provider Cycles [facility] BCN OP R-CHOP [id number] (R IV/SC) 3 11/07/2023 acetaminophen (TYLENOL)albuterol (PROVENTIL)cycloPHOSpham [...] treatments are documented for this patient in [facility]. Treatments may have been administered in another system. Lifetime Dose Tracking * Chemical Lifetime Dose Automatic Entry Manual Entr y Doxorubicin 297.672 mg/m2 (504 mg) 297.672 mg/m2 (504 mg) 0 mg/m2 (0 mg)
--- OUTSIDE RECORDS SUMMARY | 2025-08-20 21:10 | XMS_ITS | Clinical Summary ---
Author Organization [employer] [facility] Prior to 02/01/25 Address [address] [place] [address] Care Team Providers Care Anatomic Pathology Manager Name Role Phone Grisel Meraz MD Primary Care Provider [phone] Allergies Active Allergy Reactions Criticality Noted Date [...] tablet by mouth daily. 0 07/08/2022 Active Horse Branch-3 Fatty Acids (Fish Oil) 1000 MG CAPS [...] Screening (Mammogram) 2022 Influenza Vaccine (#1) 2025 , 10/14/2020, 05/30/2019, Additional history exists DTap / Tdap / Td (5 - Td or Tdap) 10/06/2030 10/06/2020, 06/27/2018, 12/23/2016, Additional history exists Hepatitis C Screening Completed 11/21/2022 RSV Ped < 20 months Aged Out No longe r eligible based on patient's age to complete this topic Care Teams Anatomic Pathology Manager Relationship Specialty Start Date End Date Grisel Meraz MD [address] [place], [place] [phone] PCP - General Pediatrics 09/16/22
--- OUTSIDE RECORDS SUMMARY | 2025-08-20 21:10 | XMS_ITS | Encounter Summary ---
Author Organization [employer] Address [address] [facility] [address] [place] [address] Care Team Providers Care Paper Reclaiming Machine Operator Name Role Phone Grisel Meraz MD Primary Care Provider [phone] Encounter Details Date Type Department Care Team ([facility] st Contact Info) Description 07/11/2023 Abstract [facility] MEDICINE [address] [place] [address] Grisel Meraz MD [address] [place], [place] [phone] Social History Tobacco Use Types Packs/Day Years [...] Description 10/21/2025 2:30 PM EST Office Visit [facility] OPTOMETRY [address] [place], [place] [phone] Tarpierre Lolita, OD [address] [place] [address] 11/18/2025 11:30 AM EDT Office Visit [facility] CHC MED & PEDS [address] [place], [place] [phone] Grisel Meraz MD [address] [place], [place] [phone] documented as of this encounter Procedures Procedure Name Priority Date/Time Associated Diagnosis Comments COLONOSCOPY Routine 11/22/2016 documented in this encounter Results * Colonoscopy (11/22/2016) Colonoscopy Normal Normal Narrative VandanaVianey - 11/22/2016 Recommended 5 year follow up Historical Provider HEALTH MAINTENANCE Final Result documented in this encounter Visit Diagnoses Not on filedocumented in this encounter Additional Health Concerns Assessment Noted Time PHQ-9 Depression Total Score: 21 023 11:24 AM EST documented as of this encounter Care Teams Paper Reclaiming Machine Operator Relationship Specialty Start Date End Date Grisel Meraz MD [address] [place], [place] [phone] PCP - General Family Medicine 03/06/19 documented as of this encounter
--- OUTSIDE RECORDS SUMMARY | 2025-08-20 21:10 | XMS_ITS | Encounter Summary ---
Author Organization [employer] Address [address] [facility] [address] [place] [address] Care Team Providers Care [employer] Dean Name Role Phone Grisel Meraz MD Primary Care Provider [phone] Encounter Details Date Type Department Care Team ([facility] st Contact Info) Description 04/04/2025 Orders Only [facility] CHC MED & PEDS [address] [place], [place] [phone] Provider, MD Silverio Social History Tobacco Use [...] Description 10/21/2025 2:30 PM EST Office Visit [facility] OPTOMETRY [address] [place], [place] [phone] Lolita Jenkins, OD [address] [place] [address] 11/18/2025 11:30 AM EDT Office Visit [facility] CHC MED & PEDS [address] [place] [address] Grisel Meraz MD [address] [place] [address] documented as of this encounter Procedures Procedure [...] documented as of this encounter Care Teams [employer] Dean Relationship Specialty Start Date End Date Grisel Meraz MD [address] [place] [address] PCP - General Family Medicine 03/06/19 documented as of this encounter
--- OUTSIDE RECORDS SUMMARY | 2025-08-20 21:10 | XMS_ITS | Data Portability ---
Author Organization [place] [facility], Allergy Address [address] [address] Care Team Providers Care Senior Dynamics Crm Developer Name Role Phone GIDEON COLINDRES Primary Care Provider [phone] Assessment Encounter Date Assessment Date Assessment LastModified by Organization Details LastModified Time 04/23/2025 04/23/2025 54-year-old Bulgarian-speaking female, with a history of non-Hodgkin B-cell lymphoma diagnosed in 2021 currently in remission following completion of rituximab CHOP chemotherapy in February 2023, presents for evaluation of nasal fracture. CT maxilloface and head/brain without contrast performed 04/21/25 at [facility] ED reveal an acute minimally displaced left [...] Not available 04/23/2025 18:00:25 05/21/2025 05/21/2025 54-year-old Bulgarian-speaking female, with a history of non-Hodgkin B-cell lymphoma diagnosed in 2021 currently in remission following completion of rituximab [facility] chemotherapy in February 2023, presents with her sister for reevaluation of nasal fracture. CT maxilloface and head/brain without contrast performed 04/21/25 at [facility] ED reveal an acute minimally displaced left [...] us to contact her sister, Jazmín Garrett [phone]), to arrange the test. Follow up for [...] CT, maxillofac ial, w/o contrast 2024 025 [email or web address] [facility], [facility], [facility] [address], [place], [address], 14:50:46 Medication Orders None recorded. Patient TargetsNo targets recorded. Patient InstructionsNo instructions recorded. Reason for Referral None Reported. Results Created Date Observation Date Name Description Value Unit Range Abnormal Flag Note LastModifiedBy Organization Detail LastModifiedTime 04/24/2004/21/2025 CT, maxil lofac ial, w/o contr ast No observ ation record ed. [email or web address] Not Available 04/05 11:27:47 04/24/20 25 04/21/2025 CT, head + brain , w/o contr ast No observ ation record ed. [email or web address] Not Available 04/05 11:31:29 07/25/20 25 07/21/2025 CT, maxil lofac ial, w/o contr ast No observ ation record ed. [email or web address] [facility] [place] [address] [facility] [address], [place], [address], 07/29/2025 15:47:28 Result Notes None recorded. Problems Name Problem SNOMED Code Status Onset Date Resolution Date Notes Provider Name and Address Organization Details Recorded Time Chronic pharyngit is 219143 Active 2022 Chronic sore throat; Note: Date Diagnosed : 05/09/2023 7:27 AM (J31.2) Not Available [facility] 4 02:28:08 Non-Hodgk in's lymphoma (clinical ) 645915113 Active 2022 Non-Hodgk in lymphoma, unspecifi ed, unspecifi ed site; Note: Date Diagnosed : 05/09/2023 7:27 AM (C85.90) Not Available [facility] 4 02:28:18 Hypertrop hy of tonsils 78438220 Active 2022 Hypertrop hy of tonsils; Note: Date Diagnosed : 05/09/2023 7:27 AM (J35.1) Not Available [facility] 4 02:28:14 History of non-Hodgk ins lymphoma 549055548 Active 2023 Personal history of non-Hodgk in lymphomas ; Note: Date Diagnosed : 01/12/2024 4:12 PM (Z85.72) Not Available [facility] 4 02:27:57 Pharyngea l dysphagia 55268923978 105 Active 2023 Dysphagia , pharyngea l phase; Note: Date Diagnosed : 01/12/2024 4:12 PM (R13.13) Not Available [facility] 4 02:27:58 Closed fracture of nasal bones 15120792 Active 2024 E[address] DIAZ [address] [place] [address] 100, [facility] [place], [address] , [place] - [facility] 5 19:44:51 Facial swelling 921938182 Active 2024 ELLIOTT DIAZ [address], [place], [place], [address] , [place] - [facility] 5 18:00:38 Sense of smell impaired 25323167 Active 2024 ELLIOTT DIAZ [address], [place], [address] , [place] - [facility] 5 18:00:49 Nasal obstructi on 409701515 Active 2024 ELLIOTT DIAZ [address], [place], [address] , [place] - [facility] 5 18:01:08 Problem Notes None recorded. Medical Equipment None Reported. Allergies Allergen ID Allergen Name Allergen Category Reaction Reaction Severity Criticality Documentation Date Start Date Code Code System Note Provider Name and Address Organization Details Recorded Time 777088 acetamino phen / oxycodone medicatio n Not available Not available Not available 07/28/2025 25629 3 RxNorm Not Available [facility] 5 08:58:47 175789 acetamino phen / hydrocodo ne medicatio n Not available Not available Not available 07/28/2025 97546 2 RxNorm Not Available [facility] - [facility] 5 08:58:47 553335 hydrocodo ne Not available anaphylax is Not available [facility] 07/28/20252022 5489 RxNorm Not Available [facility] - [facility] 5 08:59:25 043699 oxycodone medicatio n dyspnea Not available [facility] 07/28/20252016 7804 RxNorm Other react ion(s ): Unkno wn Not Available [email or web address] - [facility] 5 08:59:25 69472 acetamino phen / oxycodone medicatio n other Not available Not available 01/16/2024 92952 3 RxNorm React ion: Unkno wn; Not Available [facility] 4 00:56:44 13228 acetamino phen / hydrocodo ne medicatio n other Not available Not available 01/16/2024 18064 2 RxNorm React ion: Unkno wn; Not Available [facility] 4 00:56:49 Medications Name Sig Start Date [...] Available Not Available No t Available OneTouch Ultra Test strips TEST EVERY 4 HOURS [...] 500 mg tablet active Medicati on ID: [id number] B rand Name: naproxen Send Method: E-Prescr [...] HFA aerosol inhaler active Medicati on ID: [id number] B rand Name: Symbicor t Send Method: [...] unit/mL subcutane ous active Medicati on ID: 114990 B poy sippi Name: Humalog KwikPen Insulin Send Method: E-Prescr [...] 2nd Gen Pen Needle 32 gauge x USE DIRECTED 4 TIMES A DAY active [...] Updated DateTime 04/23/2025 165.1 cm 21.6 kg/m2 11970.01 g Veronica Hancock [facility] 04/23/2025 13:48:59 Date Recorded Body height Body mass index (BMI) Body weight Provider Name and Address Organization Details Last Updated DateTime 05/21/2025 170.18 cm 26.2 kg/m2 89231.93 g Celsa Diaz [facility] 05/21/2025 15:09:06 Social History None recorded. Functional Status None recorded. Mental Status None recorded. Family History Nothing Reported. Medical History No medical history recorded. Gynecological HistoryNo gynecological history recorded. Obstetrics History GPAL:G 0 P 0 0 0 0 Past Encounters Encounter ID Performer Location Encounter Start Date Encounter Closed Date Diagnosis/Indication Diagnosis SNOMED-CT Code Diagnosis ICD10 Code Diagnosis IMO Codes Diagnosis Note [id number] ELLIOTT DIAZ [facility] [address] [address] 04/23/2025 13:34:35 04/23/2025 14:28:06 Closed fracture of nasal bones 95833456 S02.2XXA 6240586 Facial swelling 65847792 6 R22.0 568607 Sense of s jake impaired 44615493 R43.8 40001 Nasal obstruction 035428 000 J34.89 82362 [id number] ELLIOTT DIAZ [facility] [address] [place] [address] 05/21/2025 14:56:36 05/21/2025 15:41:52 Closed fracture of nasal bones 36232198 S02.2XXD 77951208 Nasal obstruction 073268 000 J34.89 75567 Sense of s jake impaired 43144461 R43.8 36456 Health Concerns Section Related Observation LastModified by Organization Detai ls LastModified Time None Recorded Concern Status LastModified by Organization Details LastModified Time None Recorded Advance Directives Directive None Recorded Payers Insurance Date Sequence Insurance Name Policy Number Policy Banks Covered Member ID Banks Member ID Guarantor Name 08/12/2025 1 [facility] (MEDICARE REPLACEMENT/ ADVANTAGE - HMO) Za Mauro [id number] Za Mauro 07/17/2025 1 [employer] (MEDICARE REPLACEMENT/ ADVANTAGE - PPO) [id number] Za Mauro [id number] Za Mauro Notes Date Note Type Note Provider Name and Address Organization Details Recorded Time 04/23/2025 text/html ROS as noted in the HPI 54-year-old Bulgarian-speaking female, with a history of non-Hodgkin B-cell [...] nose and was brought by ambulance to [facility] ED. CT maxilloface and head/brain without contrast performed 04/21/25 reveal an acute minimally displaced left nasal bone fracture with adjacent soft tissue swelling. Today, she continues to endorse left-sided nasal obstruction and diminished sense of smell. Patient is mainly concerned about the significant swelling involving her face and nose. Zach Clark, 100 [facility],[address], [address], [facility] - [facility] 04/24/2025 12:51:09 05/21/2025 text/html ROS as noted in the HPI 54-year-old Bulgarian-speaking female, with a history of non-Hodgkin B-cell [...] left eye. Scheduled to meet with her acetone recovery worker in the next few days to discuss this. Denies fever, facial pressure or pain, and purulent nasal discharge. Zach Clark, DO [address] [facility],[place] [address], [place], [address], [facility] - [facility] 05/23/2025 16:33:25 OBGyn Episode No OBEpisode recorded.
--- OUTSIDE RECORDS SUMMARY | 2025-08-20 21:11 | XMS_ITS | Encounter Summary ---
Author Organization [employer] Address [address] [facility] 7 [place] [address] Care Team Providers Care Psychiatric Nursing Assistant Name Role Phone Grisel Meraz MD Primary Care Provider [phone] Encounter Details Date Type Department Care Team ([facility] Contact Info) Description 08/19/2025 Telephone [facility] CHC MED & PEDS [address] [place] [address] Grisel Meraz MD [address] [place] [address] Social History Tobacco Use Types Packs/Day Years [...] encounter Miscellaneous Notes * Telephone Encounter - Alisa Gonsales [place] - 08/19/2025 10:53 AM EST Chart Prep Labs: done Images: done Referrals: complete Vaccines due: due Screenings: PISQ, foot exam Overdue care gaps: Glucose documented in this encounter Plan of Treatment Upcoming Encounters Date Type Department Care Team (Late st Contact Info) Description 10/21/2025 2:30 PM EST Office Visit [facility] OPTOMETRY [address] [place] [address] TarkaLolita, OD [address] [place] [address] 11/18/2025 11:30 AM EDT Office Visit [facility] CHC MED & PEDS [address] [place] [address] Grisel Meraz MD [address] [place] [address] documented as of this encounter Goals Goal Patient Goal Type Associated Problems Recent Progress Patient-Stated? Author Help patients manage their type 2 diabetes Care Plan Help patients manage their type 2 diabetes Scar Sanchez Weekly blood pressure task Care Plan Weekly blood pressure task Scar Sanchez Help patients manage their type 2 diabetes Care Plan Help patients manage their type 2 diabetes No Scar Alejandra Patient has chronic kidney disease Care Plan Patient has chronic kidney disease Scar Sanchez Weekly blood pressure task Care Plan Weekly blood pressure task No Scar Alejandra Patient has chronic kidney disease Care Plan Patient has chronic kidney disease No Scar Alejandra Weekly blood pressure task Care Plan Weekly blood pressure task No Marina Zelaya DDYash Weekly blood pressure task Care Plan Weekly [...] filedocumented in this encounter Additional Health Concerns Active [...] documented as of this encounter Care Teams Psychiatric Nursing Assistant Relationship Specialty Start Date End Date Grisel Meraz MD [address] [place] [address] PCP - General Family Medicine 03/06/19 documented as of this encounter
--- OUTSIDE RECORDS SUMMARY | 2025-08-20 21:11 | XMS_ITS | Clinical Summary ---
Author Organization [facility] Address [address] [place] [address] Phone Care Team Providers Care Concrete Journeyman Name Role Phone Grisel Meraz MD Primary Care Provider [phone] Allergies Active Allergy Reactions Criticality Noted Date [...] Noted Date Diagnosed Date Non-Hodgkin's lymphoma 09/29/2022 Immunizations Immunization Administration Dates Next Due Moderna SARS-CoV-2 COVID-19, mRNA, LNP-S, preservative free 02/11/2021,01/14/2021 Medical History Medical History Date Comments Diabetes mellitus ([facility] V24, [facility] V28) Colon cancer ([facility] V24, [facility] V28) Family History Medical History Relation Name [...] on file Sexual Orientation Not on file Last Filed Vital Signs [...] Description 11/12/2025 3:30 PM EDT Office Visit [facility] Hematology Oncology [address] [place] [phone] Nirmal Cooper MD [address] [place] [address] Health Maintenance Due Date Last Done Comments [...] mmol/L LAB CHEMISTRY METHOD 09/25/2024 8:22 PM [facility] Potassium 4.1 3.5 - 5.5 mmol/L LAB CHEMISTRY METHOD 09/25/2024 8:22 PM [facility] Chloride 100 96 - 110 mmol/L LAB CHEMISTRY METHOD 09/25/2024 8:22 PM [facility] CO2 28 21 - 32 mmol/L LAB CHEMISTRY METHOD 09/25/2024 8:22 PM [facility] Anion Gap 3 3 - 11 LAB CHEMISTRY METHOD 09/25/2024 8:22 PM [facility] Glucose 310(H) 70 - 100 mg/dL LAB CHEMISTRY METHOD 09/25/2024 8:22 PM [facility] BUN 11 5 - 25 mg/dL LAB CHEMISTRY METHOD 09/25/2024 8:22 PM [facility] Creatinine 0.76 0.50 - 1.10 mg/dL LAB CHEMISTRY METHOD 09/25/2024 8:22 PM [facility] eGFR 94 >=60 mL/min/1. 73m2 LAB CHEMISTRY METHOD 09/25/2024 8:22 PM [facility] Comment:Calculation based on the Chronic Kidney Disease Epidemiology Collaboration (CKD-EPI) equation refit without adjustment for race. BUN/Creatinine Ratio 14.5 LAB CHEMISTRY METHOD 09/25/2024 8:22 PM [facility] Calcium 9.3 8.5 - 10.5 mg/dL LAB CHEMISTRY METHOD 09/25/2024 8:22 PM [facility] AST (SGOT) 33 10 - 42 unit/L LAB CHEMISTRY METHOD 09/25/2024 8:22 PM [facility] ALT (SGPT) 46 10 - 60 unit/L LAB CHEMISTRY METHOD 09/25/2024 8:22 PM [facility] Alkaline Phosphatase 103 42 - 121 unit/L LAB CHEMISTRY METHOD 09/25/2024 8:22 PM [facility] Total Protein 7.9 6.0 - 8.0 g/dL LAB CHEMISTRY METHOD 09/25/2024 8:22 PM [facility] Albumin 4.1 3.2 - 5.0 g/dL LAB CHEMISTRY METHOD 09/25/2024 8:22 PM [facility] Total Bilirubin 0.6 0.0 - 1.4 mg/dL LAB CHEMISTRY METHOD 09/25/2024 8:22 PM [facility] Blood Venous blood specimen / Unknown Venipuncture / Unknown 09/25/2024 7:30 PM EST 09/25/2024 7:37 PM EST us Tae Hyong Monika DO LAB BLOOD ORDERABLES Final Resu lt [facility] ([facility] [address] [place] [address], * Lipid panel (09/06/2023) LDL/HDL Ratio 0 Triglycerides 0 mg/dL Cholesterol 0 mg/dL HDL 0 mg/dL LDL Cholesterol 0 mg/dL Blood Venous blood specimen / Unknown [facility] Provider LAB BLOOD ORDERABLES Prema l Result * Hepatitis C Screening (11/21/2022) Pathologist [facility] Hepatitis C Screening Abstracted [facility] Provider HEALTH MAINTENANCE Final Result * HIV Screening (12/03/2021) Pathologist [facility] HIV Screening Abstracted [facility] Provider HEALTH MAINTENANCE Final Result * Hemoglobin A1c (12/03/2021) Pathologist [facility] Hemoglobin A1C 0.0 % Blood Venous blood specimen / Unknown [facility] Provider LAB BLOOD ORDERABLES Prema l Result from Last 3 Months or Most Recently Relevant to Health Maintenance Insurance [place] [facility] [place] [id number] Care Teams Concrete Journeyman Relationship Specialty Start Date End Date Grisel Meraz MD [address] [place] [phone] PCP - General 09/16/22
--- OUTSIDE RECORDS SUMMARY | 2025-08-20 21:11 | XMS_ITS | Encounter Summary ---
Author Organization [employer] Address [address] [place] [address] 7 [place] [address] Care Team Providers Care Bead Maker Name Role Phone Grisel Meraz MD Primary Care Provider [phone] Reason for Visit * Reason Comments Med Refill Encounter Details Date Type Department Care Team (Late st Contact Info) Description 09/14/2022 Refill [facility] MEDICINE [address] [place] [address] Sadie Wayne MD [address] [place] [address] Social History Tobacco Use Types Packs/Day Years [...] Description 10/21/2025 2:30 PM EST Office Visit [facility] OPTOMETRY [address] [place] [address] Lolita Jenkins, OD [address] [place] [address] 11/18/2025 11:30 AM EDT Office Visit [facility] CHC MED & PEDS [address] [place], [place] [phone] Grisel Meraz MD [address] [place] [address] documented as of this encounter Visit Diagnoses Not on filedocumented in this encounter Care Teams Bead Maker Relationship Specialty Start Date End Date Grisel Meraz MD [address] [place] [address] PCP - General Family Medicine 03/06/19 documented as of this encounter
--- OUTSIDE RECORDS SUMMARY | 2025-08-20 21:11 | XMS_ITS | Encounter Summary ---
Author Organization [employer] Address [address] [address] Care Team Providers Care Cement Cutter Name Role Phone Grisel Meraz MD Primary Care Provider [phone] Reason for Visit * Reason Onset Date Comments triage 08/16/2022 Encounter Details Date Type Department Care Team (Late Contact Info) Description 08/16/2022 Telephone [facility] CHC MED & PEDS [address] [place] [address] Grisel Meraz MD [address] [place] [address] triage Social History Tobacco Use Types Packs/Day [...] report Losing weight x Months. Patient speaks (Wallisian). Advised triage nurse will call patient back. documented in this encounter Plan of Treatment Upcoming Encounters Date Type Department Care Team (Late Contact Info) Description 10/21/2025 2:30 PM EST Office Visit [facility] OPTOMETRY [address] [place] [address] Alice Lolita, OD [address] [place] [address] 11/18/2025 11:30 AM EDT Office Visit [facility] CHC MED & PEDS [address] [place], [place] [phone] Grisel Meraz MD [address] [place], [place] [phone] documented as of this encounter Visit Diagnoses Not on filedocumented in this encounter Care Teams Cement Cutter Relationship Specialty Start Date End Date Grisel Meraz MD [address] [place], [place] [phone] PCP - General Family Medicine 03/06/19 documented as of this encounter
--- OUTSIDE RECORDS SUMMARY | 2025-08-20 21:11 | XMS_ITS | Encounter Summary ---
Author Organization [employer] Address [address] [facility] 7t [place] [address] Care Team Providers Care Back Up Scan Coordinator Name Role Phone Grisel Meraz MD Primary Care Provider [phone] Encounter Details Date Type Department Care Team ([facility] st Contact Info) Description 09/27/2024 Orders Only Center Health Information Management [address] [place], [place] [phone] Provider, MD Silverio Social History Tobacco Use [...] Description 10/21/2025 2:30 PM EST Office Visit [facility] OPTOMETRY [address] [place], [place] [phone] Tarka, Lolita, OD [address] [place] [address] 11/18/2025 11:30 AM EDT Office Visit [facility] CHC MED & PEDS [address] [place], [place] [phone] Grisel Meraz MD [address] [place], [place] [phone] documented as of this encounter Procedures Procedure [...] documented as of this encounter Care Teams Back Up Scan Coordinator Relationship Specialty Start Date End Date Grisel Meraz MD [address] [place], [place] [phone] PCP - General Family Medicine 03/06/19 documented as of this encounter
--- OUTSIDE RECORDS SUMMARY | 2025-08-20 21:11 | XMS_ITS | Encounter Summary ---
Author Organization [employer] Address [address] [address] Care Team Providers Care Typecasting Machine Operator Name Role Phone Grisel Meraz MD Primary Care Provider [phone] Reason for Visit * Reason Onset Date Comments Record Request 04/05/2023 Encounter Details Date Type Department Care Team ([facility] st Contact Info) Description 04/05/2023 Telephone [facility] CHC MED & PEDS [address] [place] [address] Grisel Meraz MD [address] [place] [address] Record Request Social History Tobacco Use Types [...] - 04/05/2023 11:24 AM EDT TC from [facility] with [facility]. States had placed requests for physician Summary form , along with copies of last Physical , last office visit , and med list . documented in this encounter Plan of Treatment Upcoming Encounters Date Type Department Care Team (Late st Contact Info) Description 10/21/2025 2:30 PM EST Office Visit [facility] OPTOMETRY [address] [place] [address] Tarka, Lolita, OD [address] [place] [address] 11/18/2025 11:30 AM EDT Office Visit [facility] CHC MED & PEDS [address] [place] [address] Grisel Meraz MD [address] [place], [place] [phone] documented as of this encounter Visit Diagnoses Not on filedocumented in this encounter Additional Health Concerns Assessment Noted Time PHQ-9 Depression Total Score: 21 023 11:24 AM EST documented as of this encounter Care Teams Typecasting Machine Operator Relationship Specialty Start Date End Date Grisel Meraz MD [address] [place] [address] PCP - General Family Medicine 03/06/19 documented as of this encounter
--- OUTSIDE RECORDS SUMMARY | 2025-08-20 21:11 | XMS_ITS | Encounter Summary ---
Author Organization [employer] Address [address] [place] [address] [place] [address] Care Team Providers Care Renewals Manager Name Role Phone Grisel Mreaz MD Primary Care Provider [phone] Encounter Details Date Type Department Care Team (Latest Contact Info) Description 07/06/2022 Abstract [facility] CONVERSIONS Dental, Provider, DDS Social History [...] Description 10/21/2025 2:30 PM EST Office Visit [facility] OPTOMETRY [address] [place] [address] Lolita Jenkins, OD [address] [place] [address] 11/18/2025 11:30 AM EDT Office Visit [facility] CHC MED & PEDS [address] [place], [place] [phone] Grisel Meraz MD [address] [place], [place] [phone] documented as of this encounter Visit Diagnoses Not on filedocumented in this encounter Care Teams Renewals Manager Relationship Specialty Start Date End Date Grisel Meraz MD [address] [place] [address] PCP - General Family Medicine 03/06/19 documented as of this encounter
--- OUTSIDE RECORDS SUMMARY | 2025-08-20 21:11 | XMS_ITS | Continuity of Care Document ---
Author Organization [place] - [facility], [facility] Address [address] [place] [address] Care Team Providers Care Hse Manager Name Role Phone JENS GIDEON Primary Care Provider [phone] Assessment Encounter Date Assessment Date Assessment LastModified by Organization Details LastModified Time 05/21/2025 05/21/2025 54-year-old Brazilian-speaking female, with a history of non-Hodgkin B-cell lymphoma diagnosed in 2021 currently in remission following completion of rituximab [facility] chemotherapy in February 2023, presents with her sister for reevaluation of nasal fracture. CT maxilloface and head/brain without contrast performed 04/21/25 at [facility] ED reveal an acute minimally displaced [...] us to contact her sister, Jazmín Garrett ([phone]), to arrange the test. Follow up for review of results and reassessment. All questions were answered. Patient seen and evaluated in conjunction with Dr. Clark, who also personally reviewed the images and agrees with this plan. [email or web address] Not available 05/22/2025 23:28:12 Plan of Treatment Reminders Order Date Submit Date Provider Last Modified By Organization Details Last Modified Time Details Appointments None recorded. Lab None recorded. Referral None recorded. Procedures None recorded. Surgeries None recorded. Imaging CT, maxillofac ial, w/o contrast 2024 025 [email or web address] [facility], [address] , [facility] [address], [place], [address], 14:50:46 Medication Orders None recorded. Patient TargetsNo targets recorded. Patient InstructionsNo instructions recorded. Reason for Referral None Reported. Results Created Date Observation Date Name Description Value Unit Range Abnormal Flag Note LastModifiedBy Organization Detail LastModifiedTime 04/24/20 25 04/21/2025 CT, maxil lofac ial, w/o contr ast No observ ation record ed. [email or web address] Not Available 04/05 11:27:47 04/24/2004/21/2025 CT, head + brain , w/o contr ast No observ ation record ed. [email or web address] Not Available 04/05 11:31:29 07/25/20 25 07/21/2025 CT, maxil lofac ial, w/o contr ast No observ ation record ed. [email or web address] [facility] [address], [address], 07/29/2025 15:47:28 Result Notes None recorded. Problems Name Problem SNOMED Code Status Onset Date Resolution Date Notes Provider Name and Address Organization Details Recorded Time Chronic pharyngit is 691905 Active 2022 Chronic sore throat; Note: Date Diagnosed : 05/09/2023 7:27 AM (J31.2) Not Available [facility] 02:28:08 Non-Hodgk in's lymphoma (clinical ) 275096267 Active 2022 Non-Hodgk in lymphoma, unspecifi ed, unspecifi ed site; Note: Date Diagnosed : 05/09/2023 7:27 AM (C85.90) Not Available [facility] 02:28:18 Hypertrop hy of tonsils 67084319 Active 2022 Hypertrop hy of tonsils; Note: Date Diagnosed : 05/09/2023 7:27 AM (J35.1) Not Available [facility] 4 02:28:14 History of non-Hodgk ins lymphoma 592668847 Active 2023 Personal history of non-Hodgk in lymphomas ; Note: Date Diagnosed : 01/12/2024 4:12 PM (Z85.72) Not Available [facility] 4 02:27:57 Pharyngea l dysphagia 59834302305 105 Active 2023 Dysphagia , pharyngea l phase; Note: Date Diagnosed : 01/12/2024 4:12 PM (R13.13) Not Available [facility] 4 02:27:58 Closed fracture of nasal bones 78753239 [facility] 2024 ELLIOTT DIAZ [address] [facility] [address], [place], [address] , [facility] - [facility] 19:44:51 Facial swelling 185336714 [facility] 2024 ELLIOTT DIAZ [address] [facility] [address],[place] [address], [place], [address] , [facility] - [facility] 18:00:38 Sense of smell impaired 96169206 [facility] 2024 ELLIOTT DIAZ [address] [employer] [address], [place], [place], [address] , [facility] - [facility] 18:00:49 Nasal obstructi on 088988878 [facility] 2024 ELLIOTT DIAZ [address] [facility] [address],[place] [address], [place], [address] , [facility] - [facility] 18:01:08 Problem Notes None recorded. Medical Equipment None Reported. Allergies Allergen ID Allergen Name Allergen Category Reaction Reaction Severity Criticality Documentation Date Start Date Code Code System Note Provider Name and Address Organization Details Recorded Time 275168 acetamino phen / oxycodone medicatio n Not available Not available Not available 07/28/2025 67258 3 RxNorm Not Available [facility] - External Data Service - prod 5 08:58:47 484399 acetamino phen / hydrocodo ne medicatio n Not available Not available Not available 07/28/2025 40473 2 RxNorm Not Available [facility] External Data Service - [facility] 5 08:58:47 307618 hydrocodo ne Not available anaphylax is Not available [facility] 07/28/20252022 5489 RxNorm Not Available [facility] External Data Service - [facility] 5 08:59:25 591779 oxycodone medicatio n dyspnea Not available [facility] 07/28/20252016 7804 RxNorm Other react ion(s ): Unkno wn Not Available [facility] External Data Service - [facility] 5 08:59:25 54966 acetamino phen / oxycodone medicatio n other Not available Not available 01/16/2024 67133 3 RxNorm React ion: Unkno wn; Not Available [facility] 4 00:56:44 21645 acetamino phen / hydrocodo ne medicatio n other Not available Not available 01/16/2024 43139 2 RxNorm React ion: Unkno wn; Not Available [facility] 4 00:56:49 Medications Name Sig Start Date [...] 500 mg tablet active Medicati on ID: 760163 B rand Name: naproxen Send Method: E-Prescr [...] HFA aerosol inhaler active Medicati on ID: 258673 B rand Name: Symbicor t Send Method: [...] unit/mL subcutane ous active Medicati on ID: 290766 B rand Name: Humalog SheilaPen Insulin Send Method: E-Prescr ibed Sub s [...] 2nd Gen Pen Needle 32 gauge x /32 USE DIRECTED 4 TIMES A DAY active [...] Updated DateTime 05/21/2025 170.18 cm 26.2 kg/m2 11113.93 g Celsa Diaz [place] - [facility] 05/21/2025 15:09:06 Social History None recorded. Functional Status None recorded. Mental Status None recorded. Family History Nothing Reported. Medical History No medical history recorded. Gynecological HistoryNo gynecological history recorded. Obstetrics History GPAL:G 0 P 0 0 0 0 Past Encounters Encounter ID Performer Location Encounter Start Date Encounter Closed Date Diagnosis/Indication Diagnosis SNOMED-CT Code Diagnosis ICD10 Code Diagnosis IMO Codes Diagnosis Note [id number] ELLIOTT DIAZ [facility] [address] [address] 04/23/2025 13:34:35 04/23/2025 14:28:06 Closed fracture of nasal bones 18900354 S02.2XXA 2309625 Facial swelling 96588268 6 R22.0 978145 Sense of s jake impaired 11920186 R43.8 95478 Nasal obstruction 536905 000 J34.89 33410 [id number] ELLIOTT DIAZ [facility] [address] [address] 05/21/2025 14:56:36 05/21/2025 15:41:52 Closed fracture of nasal bones 35694286 S02.2XXD 11652767 Nasal obstruction 682883 000 J34.89 68138 Sense of s jake impaired 97289334 R43.8 00697 Health Concerns Section Related Observation LastModified by Organization Detai ls LastModified Time None Recorded Concern Status LastModified by Organization Details LastModified Time None Recorded Payers Encounter Date Sequence Insurance Name Policy Number Policy Banks Covered Member ID Banks Member ID Guarantor Name 05/21/2025 1 [facility] (MEDICARE REPLACEMENT/A DVANTAGE - HMO) Za Mauro [id number] Za Mauro Notes Date Note Type Note Provider Name and Address Organization Details Recorded Time 05/21/2025 text/html ROS as noted in the HPI 54-year-old Brazilian-speaking female, with a history of non-Hodgkin B-cell [...] left eye. Scheduled to meet with her non acoustic operator in the next few days to discuss this. Denies fever, facial pressure or pain, and purulent nasal discharge. Zach Clark DO [address] [facility],[place] [address], [place], [address], [facility] - [facility] 05/23/2025 16:33:25 OBGyn Episode No OBEpisode recorded.
--- OUTSIDE RECORDS SUMMARY | 2025-08-20 21:11 | XMS_ITS | Encounter Summary ---
Author Organization [employer] Address [address] [facility] [address] [place] [address] Care Team Providers Care Radio Interference Trouble Shooter Name Role Phone Grisel Meraz MD Primary Care Provider [phone] Reason for Visit * Reason Onset Date Comments Nurse Triage 05/30/2025 Encounter Details Date Type Department Care Team ([facility] st Contact Info) Description 05/30/2025 Telephone [facility] CHC MED & PEDS [address] [place] [address] Grisel Meraz MD [address] [place] [address] Nurse Triage Social History Tobacco Use Types [...] caller accepted this outcome.. Contact pt at [phone] (english) documented in this encounter Plan of Treatment Upcoming Encounters Date Type Department Care Team ([facility] st Contact Info) Description 10/21/2025 2:30 PM EST Office Visit [facility] OPTOMETRY [address] [place] [address] TarLolita jay, OD [address] [place] [address] 11/18/2025 11:30 AM EDT Office Visit [facility] CH[facility] MED & PEDS [address] [place], [place] [phone] Grisel Meraz MD [address] [place], [place] [phone] documented as of this encounter Visit Diagnoses Diagnosis B-cell lymphoma of intra-abdominal lymph nodes, unspecified B-cell lymphoma type (CMS/HCC) (HCC) documented in this encounter Additional Health Concerns Assessment Noted Time PHQ-9 Depression Total Score: 0 12/05/19 25 11:11 AM EDT documented as of this encounter Care Teams Radio Interference Trouble Shooter Relationship Specialty Start Date End Date Grisel Meraz MD [address] [place] [address] PCP - General Family Medicine 03/06/19 documented as of this encounter
--- OUTSIDE RECORDS SUMMARY | 2025-08-20 21:11 | XMS_ITS | Clinical Summary ---
Author Organization [employer] Address [address] [place] [address] 7 [place] [address] Care Team Providers Care Field Professional Name Role Phone Grisel Meraz MD Primary Care Provider [phone] Allergies Active Allergy Reactions Criticality Noted Date [...] tablet by mouth at bedtime. 023 Active omega-3 (Fish Oil) 1000 MG capsule [...] complication, with long-term current use of insulin ([facility]) Inject 30 Units under the skin at bedtime. 3 mL 11 023 Active TRUEplus Lancets 33G misc TEST BLOOD SUGAR FOUR TIMES DAILY 100 each 11 023 Active Alcohol Swabs (Alcohol Prep) 70 % pads Use 4 x a day as needed 100 each 023 Active BD Pen Needle Tania U/F 32G X 4 MM misc Inject under the skin 4 times daily. Use as instructed 100 each 023 Active Blood Glucose Monitoring Suppl (SoupQubes) w/Device kit CHECK BLOOD SUGAR FOUR TIMES [...] injectionIndicat ions:Type 2 diabetes mellitus with hyperglycemia ([facility]),nursing home (current) use of insulin ([facility]/HCC) ([facility]) INJECT 2 TO 16 UNITS SUBCUTANEOUSLY FOUR TIMES DAILY 15 mL 6 023 Active insulin aspart FlexPen (NovoLOG) 100 UNIT/ML pen Use 10 units subcutaneously premeals tid or as per sliding scale 15 mL 11 023 Active OneTouch Verio test stripIndications :Type 2 diabetes mellitus without complications ([facility]) TEST BLOOD SUGAR FOUR TIMES DAILY [...] RINSE MOUTH AFTER USE 13 g 11 025 Active Multiple Vitamin (Multivitamin) tabletIndication s:Type 2 diabetes mellitus without complication, with long-term current use of insulin (HCC) TAKE ONE TABLET EVERY MORNING 90 tablet [...] TABLET EVERY MORNING 30 tablet 5 Active loratadine (Claritin) 10 MG tablet TAKE ONE TABLET EVERY MORNING 90 tablet 1 08/08/20 25 11:48 AM EST 025 Active dextran 70-hypromellose (artificial tears) 0.1-0.3 % ophthalmic solutionIndicati ons:Blurry vision, left eye Administer 1 drop into the left eye if needed in the morning, at noon, and at bedtime for dry eyes. 15 mL 025 2025 Active oxybutynin XL (Ditropan-XL) 5 MG 24 hr tabletIndication s:Type 2 diabetes mellitus with hyperglycemia, with long-term current use of insulin (HCC) TAKE ONE TABLET EVERY MORNING 30 tablet 5 08/08/20 25 11:48 AM EST 025 Active pantoprazole (ProtoNix) 40 MG EC tabletIndication s:Type 2 diabetes mellitus with hyperglycemia, with long-term current use of insulin (HCC) TAKE ONE TABLET EVERY MORNING 30 tablet 5 08/08/20 25 11:48 AM EST 025 Active traMADol (Ultram) 50 MG tabletIndication s:B-cell lymphoma of intra-abdominal lymph nodes, unspecified B-cell lymphoma type (CMS/HCC) (HCC) Take 1 tablet (50 mg) by mouth if needed each day for severe pain. 30 tablet 08/20/20 25 2:51 PM EST 025 Active miconazole (Micotin) 2 % vaginal cream INSERT ONE APPLICATORFUL VAGINALLY AT BEDTIME 022 2024 Discontinued(T herapy completed) traMADol (Ultram) 50 MG tabletIndication s:B-cell lymphoma of intra-abdominal lymph nodes, unspecified B-cell lymphoma type (CMS/HCC) (HCC) TAKE ONE TABLET EVERY 6 HOURS NEEDED FOR SEVERE PAIN 30 tablet 025 2024 Discontinued(R eorder (will not trigger [...] Encounters Date Type Department Care Team Description 2025 9:15 AM EST Procedure Visit [facility] CHC MED & PEDS [address] [place], [place] [phone] Grisel Meraz MD Encounter for immunization (Primary Dx); Encounter for gynecological examination (general) (routine) without abnormal findings; Breast cancer screening by mammogram; B-cell lymphoma of intra-abdominal lymph nodes, unspecified B-cell lymphoma type (CMS/HCC) (HCC); Diabetes mellitus, labile (HCC) 2025 Travel 08/19/2025 Telephone [facility] MED & PEDS [address] [place] [address] Grisel Meraz MD 08/14/2025 Telephone [facility] MED & PEDS [address] [place] [address] Grisel Meraz MD Appointment Request 07/21/2025 Orders Only GENERIC EXTERNAL DATA DEPARTMENT Provider, Generic External Data 07/15/2025 Telephone [facility] MED & PEDS [address] [place] [address] Zoe Patrick RN 07/08/2025 12:45 PM EST Office Visit [facility] ADULT DENTAL [address] [place] [address] Jose Gagnon Dental calculus (Primary Dx) 06/16/2025 1:45 PM EDT Office Visit [facility] OPTOMETRY [address] [place], [place] [phone] Lolita Jenkins, ALY 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, unspecified whether rodent exterminator insulin use (HCC) (Primary Dx); 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, unspecified whether rodent exterminator insulin use (HCC); Presbyopia 06/16/2025 Travel 06/10/2025 10:30 AM EDT Office Visit [facility] MED & PEDS [address] [place] [address] Grisel Meraz MD Diffuse large B-cell lymphoma, unspecified body region (CMS/HCC) (HCC) (Primary Dx); Type 2 diabetes mellitus without complication, with long-term current use of insulin (HCC); Mood disorder (CMS/HCC); Closed fracture of nasal bone with routine healing, subsequent encounter 06/10/2025 Refill [facility] MED & PEDS [address] [place] [address] Jeremy Ruiz MD B-cell lymphoma of intra-abdominal lymph nodes, unspecified B-cell lymphoma type (CMS/HCC) (HCC) 06/10/2025 Travel 06/09/2025 Telephone [facility] MED & PEDS [address] [place] [address] Grisel Meraz MD Chart Prep 06/03/2025 2:00 PM EDT Clinical Support [facility] MED & PEDS [address] [place] [address] Zoe Patrick RN Long-term current use of opiate analgesic (Primary Dx) 06/03/2025 Travel 05/30/2025 Telephone [facility] MED & PEDS [address] [place] [address] Grisel Meraz MD Nurse Triage 05/28/2025 Telephone [facility] MEDICINE [address] [place] [address] Grisel Meraz MD 05/28/[address] [address] Grisel Meraz MD requesting info 05/27/[address] [address] Grisel Meraz MD 05/27/2025 Telephone [facility] MEDICINE [address] [place] [address] Shirin Razo LPN 05/27/[address] [address] Grisel Meraz MD 05/24/[address] [address] Grisel Meraz MD Type 2 diabetes mellitus with hyperglycemia, with long-term current use of insulin ([facility]) from Last 3 Months Immunizations Immunization Administration Dates Next Due Influenza Injectable Quadriv alant Preservative Free IIV4 MDCK 10/14/2020 Influenza injectable quadriv alent IIV4 with preservative 05/30/2019,06/27/2018 Influenza injectable quadriv alent preservative free 06/28/2023 Influenza, seasonal, injecta ble, preservative free 2025,09/05/2024 Moderna Covid-19 Vaccine 12+ 02/11/2021,01/15/20 21 Pneumococcal [...] 20 2025 9:23 AM EST Oxygen Saturation 97% 05/06/2025 1:44 PM EDT Inhaled Oxygen Concentration - - Weight 72.6 kg (160 lb) 2025 9:23 AM EST Height 165.1 cm (5' 5 ) 06/10/2025 10:50 AM EDT Body Mass Index 26.63 06/10/2025 10:50 AM EDT Plan of Treatment Upcoming Encounters Date Type Department Care Team (Late st Contact Info) Description 10/21/2025 2:30 PM EST Office Visit [facility] OPTOMETRY [address] [place], [place] [phone] Lolita Jenkins, OD [address] [place] [address] 11/18/2025 11:30 AM EDT Office Visit [facility] CHC MED & PEDS [address] [place], [place] [phone] Grisel Meraz MD [address] [place] [address] Health Maintenance Due Date Last Done Comments CT Colonography 1972 FIT DNA/Cologuard 1972 FIT 1972 FOBT 1972 Sigmoidoscopy 1972 Diabetes: Foot Exam 1982 Hepatitis B Vaccines (1 of 3 - 19+ 3-dose series) 1991 Pap Smear 1993 Pneumococcal Vaccine: 50+ Years (2 of 2 - PCV) 03/10/2015 03/10/2014 RSV Patients and Patients Aged 60 years or older (1 - Risk 50-74 years 1-dose series) 2022 Cervical Cancer Screening 04/18/2024 HPV/Cotest 04/18/2024 04/18/2019 COVID-19 Vaccine ( season) 2025 10/27/2022, 12/13/2021, 02/11/2021, Additional history exists Mammogram 11/15/2025 11/16/2023 Diabetes: Urine Protein Screening 11/22/2025 11/22/2024, 09/06/2023, 12/03/2021, Additional history exists Lipid Panel 11/22/2025 11/22/2024, 11/2023, 12/03/2021, Additional history exists Alcohol/Substance Use Screening 12/04/2025 12/04/2024 Depression Screening 12/04/2025 12/04/2024, 12/05/19 Diabetes: Hemoglobin A1C 12/09/2025 025, 12/04/2024, 09/05/2024, Additional history exists Dental Oral Exam 01/06/2026 07/08/2025, 07/17/2019 Dental Prophylaxis 01/06/2026 07/08/2025 Disability Screening 06/10/2026 06/10/2025 SDOH Screening 06/10/2026 06/10/2025 Eye Exam 06/27/2026 06/27/2025, 06/04, 06/16/2025, Additional history exists Dental X-Ray: Bitewings 07/09/2026 07/08/20, 07/06/2022, 07/17/2019 Tobacco Screening 2026 2025 Colonoscopy 09/12/2027 09/12/2022, 11/22/2016 Colorectal Cancer Screening 09/12/2027 Dental X-Ray: Full Mouth 07/09/2028 07/08/2025, 07/05 DTaP/Tdap/Td Vaccines (5 - Td or Tdap) 10/06/2030 10/06/2020, 06/27/2018, 12/23/2016, Additional history exists HIV Screening Completed 12/03/2021 Hepatitis C Screening Completed 12/03/2021, 021 Zoster Vaccines Completed 11/07/2024, 09/05/2024 Influenza Vaccine Completed 2025, , 06/28/2023, Additional history exists HIB Vaccines Aged Out [...] on patient's age to complete this topic Goals Goal Patient Goal Type Associated Problems [...] chronic kidney disease No Alisa Gonsales MA Procedures Procedure Name Priority Date/Time Associated Diagnosis Comments GLUCOSE, WHOLE BLOOD Routine 07/21/2025 2:27 PM EST CASE PRESENTATION, DETAILED AND EXTENSIVE TREATMENT PLANNING Routine 07/08/2025 12:45 PM EST ORAL HYGIENE INSTRUCTIONS Routine 07/08/2025 12:45 PM EST PROPHYLAXIS - ADULT Routine 07/08/2025 1 2:45 PM EST INTRAORAL - COMPLETE SERIES OF RADIOGRAPHIC IMAGES Routine 07/08/2025 12:45 PM EST COMPREHENSIVE PERIODONTAL EVALUATION - NEW OR ESTABLISHED PATIENT Routine 07/08/2025 12:45 PM EST PERIODIC ORAL EVALUATION - ESTABLISHED PATIENT Routine 07/08/2025 12:45 PM EST 13 CROWN - PORCELAIN/CERAMIC Routine 07/08/2025 12:00 AM EST 12 CROWN - PORCELAIN/CERAMIC Routine 07/08/2025 12:00 AM EST 13 PREFABRICATED POST AND CORE IN ADDITION TO CROWN Routine 07/08/2025 12:00 AM EST 12 PREFABRICATED POST AND CORE IN ADDITION TO CROWN Routine 07/08/2025 12:00 AM EST 13 ROOT CANAL Routine 07/08/2025 12:00 AM EST 12 ROOT CANAL Routine 07/08/2025 12:00 AM EST AMB REFERRAL TO OPHTHALMOLOGY Routine 06/27/2025 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, unspecified whether usp insulin use (HCC) 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, unspecified whether usp insulin use (HCC) POCT GLYCATED HEMOGLOBIN, TOTAL Routine 06/10/2025 10:52 [...] HM COLONOSCOPY Routine 09/12/2022 11:49 AM EST ZZZ HISTORICAL HEPATITIS C AB W/REFL TO HCV RNA, QN, PCR Routine 12/03/2021 12:00 AM EDT HIV 1/2 ANTIGEN/ANTIBODY, FOURTH GENERATION W/RFL Routine 12/03/2021 12:00 AM EDT ZZZ HISTORICAL HPV E6/E7 RFLX SONIA 16 18/45 Routine 04/18/2019 11:40 AM EDT from Last 3 Months or Most Recently Relevant to Health Maintenance Results * (ABNORMAL) Glucose, Whole Blood (07/21/2025 2:27 PM EST) Glucose, Whole Blood 144(H) 60 - 115 mg/dL [facility] Comment:METER #: [id number] Testing performed in the Endocrinology Department [address] , [address], [facility]. 07/21/2025 2:27 PM EST 07/21/2025 2:31 PM EST us Generic External Data Provider LAB BLOOD ORDERAB LES Final Result [facility] [address] [place] [address] [phone] * Referral to Ophthalmology (06/27/2025) us Lolita Jenkins OD OUTPATIENT REFERRAL ORDERABLES Final Result * (ABNORMAL) POCT Hgb A1c (06/10/2025 10:52 AM EDT) Hemoglobin A1C 6.9(A) 4.0 - 5.7 % QC Media Lot # [id number] Lot# Expiration Date [id number] Blood 06/10/2025 10:5 2 AM EDT us Grisel Meraz MD POINT OF CARE TEST ENTER/EDIT ORDERABLES Final Result * POCT Glucose (06/10/2025 10:52 AM EDT) Pathologist [facility] Glucose Blood, POC 169 60 - 200 mg/dL QC Media Lot # [id number] Lot# Expiration Date Blood Capillary blood specimen / Unknown 06/10/2025 10:52 AM EDT Grisel Meraz MD POINT OF CARE TEST ENTER/EDIT ORDERABLES Final Result * POCT ROSELYN-14 Urine Drug Screen (06/03/2025 2:10 PM EDT) Pathologist [facility] THC Negative Negative Cocaine Screen, Urine Negative [...] PM EDT . Internal Pass Control Lot# [id number] Exp: 07-04-26 Grisel Meraz MD POINT OF CARE TEST ENTER/EDIT ORDERABLES Final Result * Lipid Panel, Standard (11/22/2024 11:46 AM EDT) Triglycerides 137 <150 mg/dL [facility] Comment:Desirable Triglyceri de: less than 150 mg/dLBorderline High Triglyceride 150-199 mg/dLHigh Triglyceride: 200-499 mg/dLVery High Triglyceride: greater than or equal to 5OO mg/dL Cholesterol 159 <200 mg/dL [facility] Comment:Desirable Cholestero l: less than 200 mg/dLBorderline High Cholesterol: 200-239 mg/dLHigh Cholesterol: greater than 239 mg/dL LDL Cholesterol Calculated 78 <100 mg/dL [facility] Comment:Desirable LDL: less than 100 mg/dLNear Optimal/Above Optimal LDL: 110- 129 mg/dLBorderline High LDL: 130-159 mg/dLHigh LDL: 160-189 mg/dLVery High LDL: greater than or equal to 190 mg/dL HDL Cholesterol 54 >40 mg/dL [facility] Comment:Desirable HDL: great er than 40 mg/dL Note: This HDL assay may give artificially low results in patients with liver disease. 11/22/2024 11:4 6 AM EDT 11/22/2024 11:46 AM EDT us Generic External Data Provider LAB BLOOD ORDERAB LES Final Result Performing Organization Address [facility] Co de Phone Number [facility] [address] [place] [phone] * Albumin, Random Urine W/Creatinine (11/22/2024 11:22 AM EDT) Creatinine, Urine 123.70 mg/dL [facility] Microalbumin Urine 16.0 mg/L [facility] Microalbum Creatinine Ratio Ur 12.9 <30 ug/mg cr [facility] Comment:Albumin/Creatinine R atio Reference Ranges: Normal: < 30 ug/mg creatinine Microalbuminuria: 30 - 300 ug/mg creatinineClinical Albuminuria: > 300 ug/mg creatinine 11/22/2024 11:2 2 AM EDT 11/22/2024 12:34 PM EDT us Generic External Data Provider LAB URINE ORDERAB LES Final Result Performing Organization Address [facility]/ZIP Co de Phone Number [facility] [address] [place] [phone] * BI Mammogram Screening Bilateral (11/16/2023) Anatomical Region Laterality Modality Breast Bilateral Mammography us Grisel Begolli MD IMG BI PROCEDURES Final Resul t * Hm Colonoscopy (09/12/2022 11:49 AM EST) Historical Provider HEALTH MAINTENANCE Final Result * HEPATITIS C AB W/REFL TO HCV RNA, QN, PCR (12/03/2021 12:00 AM EDT) HEPATITIS C ANTIBODY NON-REACT MICHAEL NON-REACT MICHAEL [facility] INDEX 0.01 <1.00 [facility] Comment: HCV antibody was non-reactive. There is no laboratory evidence of HCV infection. In most cases, no further action is required. However, if recent HCV exposure is suspected, a test for HCV RNA (test code 90102) is suggested. For additional information please refer to http://[employer]Notis.tv/faq/ZSO02b6 (This link is being provided for informational/ educational purposes only.) 12/03/2021 Grisel Meraz MD HISTORICAL/NON ORDERABLE LABS Final Result [facility] [address] * HIV 1/2 ANTIGEN/ANTIBODY,FOURTH GENERATION W/RFL (12/03/2021 12:00 AM EDT) HIV-1/2 ANTIGEN AND ANTIBODIES, 4TH GENERATION W/ REFLEX NON-REACT MICHAEL NON-REACT MICHAEL [facility] Comment: HIV-1 antigen and HIV-1/HIV-2 [...] purpose. For additional information please refer to http://[employer]Notis.tv/faq/VLY171 (This link is being provided for informational/ educational purposes only.) The performance of this assay has not been clinically validated in patients less than 2 years old. 12/03/2021 Grisel Meraz MD LAB BLOOD ORDERABLES Final Re sult [facility] [address] [place] [address], * HPV E6/E7 RFLX SONIA 16 18/45 (04/18/2019 11:40 AM EDT) HPV 16 RNA Test not performed [facility] HPV 18/45 RNA Test not performed [facility] HPV mRNA E6/E7 Not Detected NOT DETECTED [facility] Comment: This test was performed using the APTIMA(R) HPV Assay ([employer] This assay detects E6/E7 viral messenger RNA (mRNA) from 14 high-risk HPV types (16,18,31,33,35,39,45,51, 52,56,58,59,66,68). For additional information please refer to: http://education.Notis.tv/faq/WYF017p9 (This link is being provided for informational/ educational purposes only.) The analytical performance characteristics of this assay have been determined by [facility], [place]. The modifications have not been cleared or approved by the FDA. This assay has been validated pursuant to the CLIA regulations and is used for clinical purposes. Please note: Effective 05/16/2016, HPV testing will be performed using [employer]'s APTIMA test which targets mRNA. Detecting mRNA instead of DNA, as in older methods, offers significant improvements in specificity. ADDITIONAL TESTING Not indicated () [facility] Comment: Test Performed by [facility], [facility] [place], [address] [place], [place] Jorje Hendrickson M.D., Ph.D., Director of Laboratories , CLIA [id number] 04/18/2019 11:4 0 AM EDT Grisel Meraz MD HISTORICAL/NON ORDERABLE LABS Final Result [facility] [address] from Last 3 Months or Most Recently Relevant to Health Maintenance Additional Health Concerns Active Problems Noted Date [...] 08/19/2025 Patient has chronic kidney disease 08/19/2025 Insurance [facility] MEDICARE ADVANTAGE [facility] STAND ADULT Advance Directives Documents on File Type Date Recorded Patient Director Of In Service Education Expl anation Advance Directives and Livin g Will 11/09/2023 3:59 PM HCP Care Teams Field Professional Relationship Specialty Start Date End Date Grisel Meraz MD [address] [place] [phone] PCP - General Family Medicine 03/06/19
--- OUTSIDE RECORDS SUMMARY | 2025-08-20 21:11 | XMS_ITS | Encounter Summary ---
Author Organization [employer] [facility] Prior to 02/01/25 Address [address] [place] [address] Care Team Providers Care Locomotive Engineer Diesel Name Role Phone Grisel Meraz MD Primary Care Provider [phone] Encounter Details Date Type Department Care Team Description 11/01/[address] [facility] Oncology Services [address] [place] [address] [facility] Social History Tobacco Use Types Packs/Day Years [...] on filedocumented in this encounter Care Teams Locomotive Engineer Diesel Relationship Specialty Start Date End Date Grisel Meraz MD [address] [facility] [place] [address] PCP - General Pediatrics 09/16/22 documented as of this encounter
--- OUTSIDE RECORDS SUMMARY | 2025-08-20 21:11 | XMS_ITS | Encounter Summary ---
Author Organization [employer] Address [address] [address] Care Team Providers Care Screw Machine Setter Name Role Phone Grisel Meraz MD Primary Care Provider [phone] Reason for Visit * Reason Onset Date Comments Appointment Request 02/22/2023 Encounter Details Date Type Department Care Team ([facility] Contact Info) Description 02/22/2023 Telephone [facility] CHC MED & PEDS [address] [place] [address] Grisel Meraz MD [address] [place] [address] Appointment Request Social History Tobacco Use Types [...] are being required. Please contact pt at [phone] Libyan Speaker documented in this encounter Plan of Treatment Upcoming Encounters Date Type Department Care Team (Late st Contact Info) Description 10/21/2025 2:30 PM EST Office Visit [facility] OPTOMETRY [address] [place] [address] TarkaLolita, OD [address] [place] [address] 11/18/2025 11:30 AM EDT Office Visit [facility] CHC MED & PEDS [address] [place] [address] Grisel Meraz MD [address] [place], [place] [phone] documented as of this encounter Visit Diagnoses Not on filedocumented in this encounter Additional Health Concerns Assessment Noted Time PHQ-9 Depression Total Score: 21 023 11:24 AM EST documented as of this encounter Care Teams Screw Machine Setter Relationship Specialty Start Date End Date Grisel Meraz MD [address] [place] [address] PCP - General Family Medicine 03/06/19 documented as of this encounter
--- OUTSIDE RECORDS SUMMARY | 2025-08-20 21:11 | XMS_ITS | Encounter Summary ---
Author Organization [employer] Address [address] [facility] [address] [place] [address] Care Team Providers Care Crystal Machining Coordinator Name Role Phone Grisel Meraz MD Primary Care Provider [phone] Encounter Details Date Type Department Care Team (Latest Contact Info) Description 2025 Travel Social History Tobacco Use Types Packs/Day [...] Description 10/21/2025 2:30 PM EST Office Visit [facility] OPTOMETRY [address] [place] [address] Lolita Jenkins, OD [address] [place] [address] 11/18/2025 11:30 AM EDT Office Visit [facility] CHC MED & PEDS [address] [place] [address] Grisel Meraz MD [address] [place] [address] documented as of this encounter Goals Goal [...] Care Plan Weekly blood pressure task No DruAlisa [place] Patient has chronic kidney disease Care Plan Patient has chronic kidney disease No Alisa Gonsales [place] Patient has chronic kidney disease Care Plan Patient has chronic kidney disease No DruAlisa [place] Weekly blood pressure task Care Plan Weekly blood pressure task No DruAlisa MA Weekly blood pressure task Care Plan Weekly blood pressure task No DruAlisa [place] Patient has chronic kidney disease Care Plan Patient has chronic kidney disease No DruAlisa [place] Patient has chronic kidney disease Care Plan Patient has chronic kidney disease Val Dru Alisa, [place] documented as of this encounter Visit [...] documented as of this encounter Care Teams Crystal Machining Coordinator Relationship Specialty Start Date End Date Grisel Meraz MD [address] [place] [phone] PCP - General Family Medicine 03/06/19 documented as of this encounter
--- OUTSIDE RECORDS SUMMARY | 2025-08-20 21:11 | XMS_ITS | Encounter Summary ---
Author Organization [employer] Address 75 [facility] [address] [place] [address] Care Team Providers Care Corking Machine Operator Name Role Phone Grisel Meraz MD Primary Care Provider [phone] Encounter Details Date Type Department Care Team ([facility] st Contact Info) Description 09/06/2024 Orders Only [facility] CHC MED & PEDS [address] [place] [address] Grisel Meraz MD [address] [place] [address] Boils of multiple sites (Primary Dx) Social [...] [facility] [address] [place], [place] [phone] TarkaLolita, OD [address] [place] [address] 11/18/2025 11:30 AM EDT Office Visit [facility] CHC MED & PEDS [address] [place] [address] Grisel Meraz MD [address] [place] [address] documented as of this encounter Visit Diagnoses Diagnosis Boils of multiple sites- Primary documented in this encounter Additional Health Concerns Assessment Noted Time PHQ-9 Depression Total Score: 21 023 11:24 AM EST documented as of this encounter Care Teams Corking Machine Operator Relationship Specialty Start Date End Date Grisel Meraz MD [address] [place] [address] PCP - General Family Medicine 03/06/19 documented as of this encounter
--- OUTSIDE RECORDS SUMMARY | 2025-08-20 21:11 | XMS_ITS | Encounter Summary ---
Author Organization [facility] Prior to 02/01/25 Address [address] [place] [address] Care Team Providers Care Centrifugal Machine Tender Name Role Phone Grisel Meraz MD Primary Care Provider [phone] Encounter Details Date Type Department Care Team Description 12/20/2022 Social Work [facility] Oncology Services [address] [place] [address] [facility] Social History Tobacco Use Types Packs/Day Years [...] on filedocumented in this encounter Care Teams Centrifugal Machine Tender Relationship Specialty Start Date End Date Grisel Meraz MD [address] [facility] [place] [address] PCP - General Pediatrics 09/16/22 documented as of this encounter
== END 2025-08-20 19:15 | disposition home or self-care (01) ==
LOC: HO.HHCLNP 19:14
PROVIDERS: Visit Provider Pediatrics
DX: Z01.419 Encounter for gynecological examination (general) (routine) without abnormal findings (principal)
CPT/HCPCS: 88175

== ENCOUNTER 2025-09-01 14:04 | Outpatient (AMB) | payer MEDICARE, MEDICAID, SELFPAY ==
--- NOTE | 2025-09-01 14:37 | MHC.AMDMED ---
Intake Intake Visit Reasons: 60 mins Senior Quantity Surveyor Required: Yes Senior Quantity Surveyor Language: Outreach Worker Services: Senior Quantity Surveyor Offered & Declined Accompanied by: Self / Same As Patient Allergies acetaminophen (From Percocet) Allergy (Severe, Verified 04/01/25 14:28) Anaphylaxis oxycodone (From Percocet) Allergy (Severe, Verified 04/01/25 14:28) Anaphylaxis Vicodin Allergy (Unknown, Uncoded 03/13/25 14:38) Anaphylaxis HPI Comprehensive Diabetes Asmnt Most Recent Diabetes Results: Microalb/Creat Ratio, (<30) 12.9 ug/mg cr 11/22/24 Cholesterol, (<200) 159 mg/dL 11/22/24 HDL Cholesterol, (>40) 54 mg/dL 11/22/24 Triglycerides, (<150) 137 mg/dL 11/22/24 Creatinine, (0.5-1.4) 0.67 mg/dL 11/22/24 BUN, (9-16) 19 mg/dL H 11/22/24 Sodium, (135-145) 143 mmol/L 11/22/24 Potassium, (3.3-5.1) 4.0 mmol/L 11/22/24 Chloride, (96-108) 111 mmol/L H 11/22/24 Carbon Dioxide, (22-29) 26 mmol/L 11/22/24 Calcium, (8.4-10.2) 9.4 mg/dL 11/22/24 AST, (5-31) 32 U/L H 11/22/24 ALT, (0-31) 34 U/L H 11/22/24 Total Protein, (6.5-8.0) 8.3 g/dL H 03/04/21 Albumin, (3.5-5.0) 4.4 g/dL 03/04/21 [facility] Medical History Cellulitis Right groin pain Arthritis Elevated LFTs Fibromyalgia Bunion, left foot Migraine Asthma Seasonal allergies Mood disorder Joint pain Hyperlipidemia LDL goal <100 Type 2 diabetes mellitus with polyneuropathy Type 2 diabetes mellitus with hyperglycemia Surgical History Hx of colonoscopy (~2019) Hx of cholecystectomy Hx of foot surgery History of bilateral carpal tunnel release Hx of cataract surgery Family History Father Hypertension Mother Diabetes Colon cancer Brother Liver cancer Social History Household Members: Other Household Members Other:: Sister Alcohol intake: current Alcohol intake frequency: does not drink Patient Tobacco Use Status: Never used Tobacco Assessment & Plan Assessment & Plan (1) Type 2 diabetes mellitus with hyperglycemia: Code(s): E11.65 - Type 2 diabetes mellitus with hyperglycemia Qualifiers: Diabetes mellitus manager long term care insulin use: with manager long term care use Qualified Code(s): E11.65 - Type 2 diabetes mellitus with hyperglycemia; Z79.4 - manager long term care (current) use of insulin Plan: Patient presents for pump training for iLet pump and CGM training today. The following topics were reviewed today: -Pump therapy basic concepts: Basal/bolus -For most effective glucose control bolus prior to meals - Off pump backup insulin plan iLet Alerts: ??? High Alert: 300 mg/dl ??? Low Alert: 75 mg/dl Patient continues to struggle announcing meals, reports that she has no appetite since her dog . Patient reports that she slipped and twisted her left ankle approximately a week ago, she removed her boot and sock. Ankle appears bruised, red and swollen. Encourage patient to go to ED for x-rays or urgent care. Patient reported she had additional doctor's appointment at 16:00 this afternoon, but will follow-up with ED after that visit. At today's visit we tried to contact [facility] patient's D[facility], patient is out of pump supplies and sensors. Was on hold with [facility] for over 20 minutes, message sent to [facility] to see if we can switch DME supplier for patient's Patient understands the basic concepts of pump therapy, how to give insulin for meals and snacks, how to troubleshoot for hyper and hypoglycemia. Patient will follow up with [facility] as instructed Patient will contact [facility] with questions or concerns, patient given IT number to support in any technical issues related to insulin pump Portions of this note were created using voice recognition software, please excuse any words or phrases that may have been misinterpreted. Coding Level of Care Code Est Pt Level 1 (51838) Diagnoses Type 2 diabetes mellitus with hyperglycemia, with long-term current use of insulin E11.65; Z79.4 Diabetes mellitus intermediate insulin use: with manager long term care use
--- OUTSIDE RECORDS SUMMARY | 2025-09-01 16:23 | XMS_ITS | Clinical Summary ---
Author Organization [facility] Prior to 02/01/25 Address [address] [place] [address] Care Team Providers Care Musical Engineer Name Role Phone Grisel Meraz MD Primary Care Provider [phone] Allergies Active Allergy Reactions Criticality Noted Date [...] tablet by mouth daily. 0 07/08/2022 Active Perris-3 Fatty Acids (Fish Oil) 1000 MG CAPS [...] age to complete this topic Care Teams Musical Engineer Relationship Specialty Start Date End Date Grisel Meraz MD [address] [place], [place] [phone] PCP - General Pediatrics 09/16/22
--- OUTSIDE RECORDS SUMMARY | 2025-09-01 16:23 | XMS_ITS | Encounter Summary ---
Author Organization [employer] Address [address] [facility] 7[address] [place] [address] Care Team Providers Care Rectangular Tank Cooper Name Role Phone Grisel Meraz MD Primary Care Provider [phone] Encounter Details Date Type Department Care Team ([facility] st Contact Info) Description 07/11/2023 Abstract [facility] MEDICINE [address] [place] [address] Grisel Meraz MD [address] [place], [place] [phone] Social History Tobacco Use Types Packs/Day Years [...] Description 10/21/2025 2:30 PM EST Office Visit [facility] OPTOMETRY [address] [place] [employer] [place], [place] [phone] Tarpierre Lolita, OD [address] [place] [address] 11/18/2025 11:30 AM EDT Office Visit [facility] CHC MED & PEDS [address] [place], [place] [phone] Grisel Meraz MD [address] [place], [place] [phone] documented as of this encounter Procedures Procedure [...] documented as of this encounter Care Teams Rectangular Tank Cooper Relationship Specialty Start Date End Date Grisel Meraz MD [address] [place], [place] [phone] PCP - General Family Medicine 03/06/19 documented as of this encounter
--- OUTSIDE RECORDS SUMMARY | 2025-09-01 16:23 | XMS_ITS ---
Author Organization [facility] Prior to 02/01/25 Address [address] [place] [address] Care Team Providers Care Casualty Claims Supervisor Name Role Phone Grisel Meraz MD Primary Care Provider [phone] Active Problems Problem Noted Date Diagnosed Date Non-Hodgkin's lymphoma 09/29/2022 Current Oncology Plans No current plan information found. Past Plans ONCOLOGY TREATMENT Plan Name Start Date Discontinue Date Treatment Medications Discontinue Reason Plan Provider Cycles [facility] BCN OP R-CHOP [id number] (R IV/SC) 3 11/07/2023 acetaminophen (TYLENOL)albuterol (PROVENTIL)cycloPHOSpham [...]
--- OUTSIDE RECORDS SUMMARY | 2025-09-01 16:23 | XMS_ITS | Encounter Summary ---
Author Organization [facility] Address [address] [facility] 7 [place] [address] Care Team Providers Care Turret Lathe Machinist Name Role Phone Grisel Meraz MD Primary Care Provider [phone] Reason for Visit * Reason Comments Med Refill Encounter Details Date Type Department Care Team ([facility] Contact Info) Description 08/23/2025 Refill C [facility] MED [facility] PEDS [address] [place] [address] Grisel Meraz MD [address] [place] [address] Social History Tobacco Use Types Packs/Day Years [...] Upcoming Encounters Date Type Department Care Team ([facility] st Contact Info) Description 10/21/2025 2:30 PM EST Office Visit [facility] OPTOMETRY [address] [place] [address] Lolita Jenkins, OD [address] [place] [address] 11/18/2025 11:30 AM EDT Office Visit [facility] CHC MED & PEDS [address] [place] [address] Grisel Meraz MD [address] [place] [address] documented as of this encounter Goals Goal [...] documented as of this encounter Care Teams Turret Lathe Machinist Relationship Specialty Start Date End Date Grisel Meraz MD [address] [place] [address] PCP - General Family Medicine 03/06/19 documented as of this encounter
--- OUTSIDE RECORDS SUMMARY | 2025-09-01 16:23 | XMS_ITS | Encounter Summary ---
Author Organization [employer] Address [address] [facility] 7t [place] [address] Care Team Providers Care Wind Tunnel Technician Name Role Phone Grisel Meraz MD Primary Care Provider [phone] Encounter Details Date Type Department Care Team ([facility] st Contact Info) Description 04/04/2025 Orders Only [facility] CHC MED & PEDS [address] [place], [place] [phone] Provider, MD Silverio Social History Tobacco Use [...] 2:30 PM EST Office Visit [facility] OPTOMETRY [address] [place], [place] [phone] Lolita Jenkins, OD [address] [place] [address] 11/18/2025 11:30 AM EDT Office Visit [facility] CHC MED & PEDS [address] [place] [address] Grisel Meraz MD [address] [place] [address] documented as of this encounter Procedures Procedure [...] documented as of this encounter Care Teams Wind Tunnel Technician Relationship Specialty Start Date End Date Grisel Meraz MD [address] [place] [address] PCP - General Family Medicine 03/06/19 documented as of this encounter
--- OUTSIDE RECORDS SUMMARY | 2025-09-01 16:23 | XMS_ITS | Data Portability ---
Author Organization [place] [facility], Allergy Address [address] [address] Care Team Providers Care Monument Erector Name Role Phone GIDEON COLINDRES Primary Care Provider Assessment Encounter Date Assessment Date Assessment LastModified by Organization Details LastModified Time 04/23/2025 04/23/2025 54-year-old Jordanian-speaking female, with a history of non-Hodgkin B-cell lymphoma diagnosed in 2021 currently in remission following completion of rituximab CHOP chemotherapy in February 2023, presents for evaluation of nasal fracture. CT maxilloface and head/brain without contrast performed 04/21/25 at [facility] ED reveal an acute minimally displaced left [...] Not available 04/23/2025 18:00:25 05/21/2025 05/21/2025 54-year-old Jordanian-speaking female, with a history of non-Hodgkin B-cell lymphoma diagnosed in 2021 currently in remission following completion of rituximab CHOP chemotherapy in February 2023, presents with her sister for reevaluation of nasal fracture. CT maxilloface and head/brain without contrast performed 04/21/25 at [facility] ED reveal an acute minimally displaced left [...] us to contact her sister, Jazmín Garrett [phone]), to arrange the test. Follow up for [...] CT, maxillofac ial, w/o contrast 2024 025 [email or web address] [facility], [facility], [facility] [address], [place], [address], 14:50:46 Medication Orders None recorded. Patient TargetsNo targets recorded. Patient InstructionsNo instructions recorded. Reason for Referral None Reported. Results Created Date Observation Date Name Description Value Unit Range Abnormal Flag Note LastModifiedBy Organization Detail LastModifiedTime 04/24/2004/21/2025 CT, maxil lofac ial, w/o contr ast No observ ation record ed. [email or web address] Not Available 04/05 11:27:47 04/24/20 25 04/21/2025 CT, head + brain , w/o contr ast No observ ation record ed. [email or web address] Not Available 04/05 11:31:29 07/25/20 25 07/21/2025 CT, maxil lofac ial, w/o contr ast No observ ation record ed. [email or web address] [facility] [address] [facility] [address], [place], [address], 07/29/2025 15:47:28 Result Notes None recorded. Problems Name Problem SNOMED Code Status Onset Date Resolution Date Notes Provider Name and Address Organization Details Recorded Time Chronic pharyngit is 679199 Active 2022 Chronic sore throat; Note: Date Diagnosed : 05/09/2023 7:27 AM (J31.2) Not Available [facility] 4 02:28:08 Non-Hodgk in's lymphoma (clinical ) 829250244 Active 2022 Non-Hodgk in lymphoma, unspecifi ed, unspecifi ed site; Note: Date Diagnosed : 05/09/2023 7:27 AM (C85.90) Not Available [facility] 4 02:28:18 Hypertrop hy of tonsils 07695241 Active 2022 Hypertrop hy of tonsils; Note: Date Diagnosed : 05/09/2023 7:27 AM (J35.1) Not Available [facility] 4 02:28:14 History of non-Hodgk ins lymphoma 444441053 Active 2023 Personal history of non-Hodgk in lymphomas ; Note: Date Diagnosed : 01/12/2024 4:12 PM (Z85.72) Not Available [facility] 4 02:27:57 Pharyngea l dysphagia 55041764086 105 Active 2023 Dysphagia , pharyngea l phase; Note: Date Diagnosed : 01/12/2024 4:12 PM (R13.13) Not Available [facility] 4 02:27:58 Closed fracture of nasal bones 82736674 Active 2024 ELLIOTT DIAZ [address] [place] [address] 100, [facility] [place], [address] , [place] - [facility] 5 19:44:51 Facial swelling 085954450 Active 2024 ELLIOTT DIAZ [address], [place], [place], [address] , [place] - [facility] 5 18:00:38 Sense of smell impaired 47328395 Active 2024 ELLIOTT DIAZ [address], [place], [address] , [place] - [facility] 5 18:00:49 Nasal obstructi on 169254279 Active 2024 ELLIOTT DIAZ [address], [place], [address] , [place] - [facility] 5 18:01:08 Problem Notes None recorded. Medical Equipment None Reported. Allergies Allergen ID Allergen Name Allergen Category Reaction Reaction Severity Criticality Documentation Date Start Date Code Code System Note Provider Name and Address Organization Details Recorded Time 075708 acetamino phen / oxycodone medicatio n Not available Not available Not available 07/28/2025 69372 3 RxNorm Not Available [facility] 5 08:58:47 024469 acetamino phen / hydrocodo ne medicatio n Not available Not available Not available 07/28/2025 59145 2 RxNorm Not Available [facility] 5 08:58:47 288926 hydrocodo ne Not available anaphylax is Not available [facility] 07/28/20252022 5489 RxNorm Not Available [facility] 5 08:59:25 718204 oxycodone medicatio n dyspnea Not available [facility] 07/28/20252016 7804 RxNorm Other react ion(s ): Unkno wn Not Available [facility] 5 08:59:25 19077 acetamino phen / oxycodone medicatio n other Not available Not available 01/16/2024 48137 3 RxNorm React ion: Unkno wn; Not Available [facility] 4 00:56:44 33359 acetamino phen / hydrocodo ne medicatio n other Not available Not available 01/16/2024 46806 2 RxNorm React ion: Unkno wn; Not Available [facility] 4 00:56:49 Medications Name Sig Start Date [...] 500 mg tablet active Medicati on ID: 544344 B rand Name: naproxen Send Method: E-Prescr [...] HFA aerosol inhaler active Medicati on ID: 524986 B rand Name: Symbicor t Send Method: [...] unit/mL subcutane ous active Medicati on ID: 504848 B [place] Name: Humalog KwikPen Insulin Send Method: E-Prescr [...] Updated DateTime 04/23/2025 165.1 cm 21.6 kg/m2 47757.01 g Veronica Hancock [facility] 04/23/2025 13:48:59 Date Recorded Body height Body mass index (BMI) Body weight Provider Name and Address Organization Details Last Updated DateTime 05/21/2025 170.18 cm 26.2 kg/m2 27261.93 g Celsa Diaz [facility] 05/21/2025 15:09:06 Social History None recorded. Functional Status None recorded. Mental Status None recorded. Family History Nothing Reported. Medical History No medical history recorded. Gynecological HistoryNo gynecological history recorded. Obstetrics History GPAL:G 0 P 0 0 0 0 Past Encounters Encounter ID Performer Location Encounter Start Date Encounter Closed Date Diagnosis/Indication Diagnosis SNOMED-CT Code Diagnosis ICD10 Code Diagnosis IMO Codes Diagnosis Note [id number] ELLIOTT DIAZ [facility] [address] [address] 04/23/2025 13:34:35 04/23/2025 14:28:06 Closed fracture of nasal bones 61896375 S02.2XXA 6377778 Facial swelling 01435357 6 R22.0 364617 Sense of s jake impaired 16316431 R43.8 75378 Nasal obstruction 250186 000 J34.89 97305 [id number] ELLIOTT DIAZ [facility] [address] [place] [address] 05/21/2025 14:56:36 05/21/2025 15:41:52 Closed fracture of nasal bones 19781115 S02.2XXD 77721938 Nasal obstruction 129480 000 J34.89 46907 Sense of s jake impaired 55454594 R43.8 26280 Health Concerns Section Related Observation LastModified by Organization Detai ls LastModified Time None Recorded Concern Status LastModified by Organization Details LastModified Time None Recorded Advance Directives Directive None Recorded Payers Insurance Date Sequence Insurance Name Policy Number Policy Banks Covered Member ID Banks Member ID Guarantor Name 08/12/2025 1 [facility] (MEDICARE REPLACEMENT/ ADVANTAGE - HMO) Za Mauro [id number] Za Mauro 07/17/2025 1 [employer] (MEDICARE REPLACEMENT/ ADVANTAGE - PPO) [id number] Za Mauro [id number] Za Mauro Notes Date Note Type Note Provider Name and Address Organization Details Recorded Time 04/23/2025 text/html ROS as noted in the HPI 54-year-old Jordanian-speaking female, with a history of non-Hodgkin B-cell [...] nose and was brought by ambulance to [facility] ED. CT maxilloface and head/brain without contrast performed 04/21/25 reveal an acute minimally displaced left nasal bone fracture with adjacent soft tissue swelling. Today, she continues to endorse left-sided nasal obstruction and diminished sense of smell. Patient is mainly concerned about the significant swelling involving her face and nose. Zach Clark, [address] [facility],[address], [address], [facility] - [facility] 04/24/2025 12:51:09 05/21/2025 text/html ROS as noted in the HPI 54-year-old Jordanian-speaking female, with a history of non-Hodgkin B-cell [...] left eye. Scheduled to meet with her ruby on rails engineer in the next few days to discuss this. Denies fever, facial pressure or pain, and purulent nasal discharge. Zach Clark, DO [address] [facility],[place] [address], [place], [address], [facility] - [facility] 05/23/2025 16:33:25 OBGyn Episode No OBEpisode recorded.
--- OUTSIDE RECORDS SUMMARY | 2025-09-01 16:23 | XMS_ITS | Encounter Summary ---
Author Organization [employer] Address [address] [facility] 7t [place] [address] Care Team Providers Care Machine Records Units Supervisor Name Role Phone Grisel Meraz MD Primary Care Provider [phone] Encounter Details Date Type Department Care Team ([facility] Contact Info) Description 08/26/2025 Results Follow-Up [facility] MEDICINE [address] [place], [place] [phone] Heidy Gould MD [address] [place] [address] Pap Smear Social History Tobacco Use Types Packs/Day Years [...] Description 10/21/2025 2:30 PM EST Office Visit [facility] OPTOMETRY [address] [place] [address] Lolita Jenkins, OD [address] [place] [address] 11/18/2025 11:30 AM EDT Office Visit [facility] CHC MED & PEDS [address] [place] [address] Grisel Meraz MD [address] [place] [address] documented as of this encounter Goals Goal [...] Care Plan Weekly blood pressure task No Heidy Gould MD Weekly blood pressure task Care Plan Weekly blood pressure task No Heidy Gould MD Patient has chronic kidney disease Care Plan Patient has chronic kidney disease Heidy Godoy MD Patient has chronic kidney disease Care Plan Patient has chronic kidney disease Heidy Godoy MD documented as of this encounter Visit Diagnoses [...] kidney disease 08/19/2025 Weekly blood pressure task 08/26/2025 Weekly blood pressure task 08/26/2025 Patient has chronic kidney disease 08/26/2025 Patient has chronic kidney disease 08/26/2025 Assessment Noted Time PHQ-9 Depression Total Score: 0 12/05/19 25 11:11 AM EDT documented as of this encounter Care Teams Machine Records Units Supervisor Relationship Specialty Start Date End Date Grisel Meraz MD [address] [place] [address] PCP - General Family Medicine 03/06/19 documented as of this encounter
--- OUTSIDE RECORDS SUMMARY | 2025-09-01 16:23 | XMS_ITS | Encounter Summary ---
Author Organization [employer] Address [address] [facility] 7 [place] [address] Care Team Providers Care Lap Maker Name Role Phone Grisel Meraz MD Primary Care Provider [phone] Reason for Visit * Reason Onset Date Comments Mammo Order 09/01/2025 Encounter Details Date Type Department Care Team ([facility] st Contact Info) Description 09/01/2025 Telephone [facility] MEDICINE [address] [place] [address] Grisel Meraz MD [address] [place], [place] [phone] Mammo Order Social History Tobacco Use Types Packs/Day Years [...] encounter Miscellaneous Notes * Telephone Encounter - Lucho Allen - 09/01/2025 10:12 AM EST TC from Gretchen with [facility] Radiology reports receiving an order for Mammogram for pt but unfortunately due to pt's insurance [facility] would be out of network and pt would have to be referred else where, unless a Network Gap extension is provided by insurance. ( Permission given by insurance) documented in this encounter Plan of Treatment Upcoming Encounters Date Type Department Care Team (Late st Contact Info) Description 10/21/2025 2:30 PM EST Office Visit [facility] OPTOMETRY [address] [place] [address] Lolita Jenkins, OD [address] [place] [address] 11/18/2025 11:30 AM EDT Office Visit [facility] CHC MED & PEDS 505 [place], [place] [phone] Grisel Meraz MD [address] [place] [address] documented as of this encounter Goals Goal [...] Care Plan Weekly blood pressure task No ZelayaTony roblesbes DDS Weekly blood pressure task Care Plan Weekly blood pressure task No ZelayaTony roblesbes DDS Patient has chronic kidney disease Care Plan Patient has chronic kidney disease No Marina Zelaya DDS Patient has chronic kidney disease Care Plan Patient has chronic kidney disease No Tony Zelayabes DDS Weekly blood pressure task Care Plan Weekly blood pressure task No DruAlisa bethea W[place] Weekly blood pressure task Care Plan Weekly blood pressure task No DruAlisa bethea [place] Patient has chronic kidney disease Care Plan Patient has chronic kidney disease No DruAlisa [place] Patient has chronic kidney disease Care Plan Patient has chronic kidney disease No DruAlisa bethea [place] Weekly blood pressure task Care Plan Weekly blood pressure task No RduAlisa W[place] Weekly blood pressure task Care Plan Weekly blood pressure task No Dru Alisa [place] Patient has chronic kidney disease Care Plan Patient has chronic kidney disease [facility] [place] Patient has chronic kidney disease Care Plan Patient has chronic kidney disease No DruAlisa W[place] Weekly blood pressure task Care Plan Weekly blood pressure task No Heidy Gould MD Weekly blood pressure task Care Plan Weekly blood pressure task No Heidy Gould MD Patient has chronic kidney disease Care Plan Patient has chronic kidney disease No Heidy Gould MD Patient has chronic kidney disease Care Plan Patient has chronic kidney disease No Heidy Gould MD Weekly blood pressure task Care Plan Weekly blood pressure task No Lucho Allen Weekly blood pressure task Care Plan Weekly blood pressure task No Lucho Allen Patient has chronic kidney disease Care Plan Patient has chronic kidney disease No Lucho Allen Patient has chronic kidney disease Care Plan Patient has chronic kidney disease No Lucho Allen documented as of this encounter Visit Diagnoses [...] 08/26/2025 Patient has chronic kidney disease 08/26/2025 Weekly blood pressure task 09/01/2025 Weekly blood pressure task 09/01/2025 Patient has chronic kidney disease 09/01/2025 Patient has chronic kidney disease 09/01/2025 Assessment Noted Time PHQ-9 Depression Total Score: 0 12/05/19 25 11:11 AM EDT documented as of this encounter Care Teams Lap Maker Relationship Specialty Start Date End Date Grisel Meraz MD [address] [place] [address] PCP - General Family Medicine 03/06/19 documented as of this encounter
--- OUTSIDE RECORDS SUMMARY | 2025-09-01 16:24 | XMS_ITS | Encounter Summary ---
Author Organization [employer] Address [address] [place] [address] [address], [place] [address] Care Team Providers Care Print And Pattern Designer Name Role Phone Grisel Meraz MD Primary Care Provider [phone] Encounter Details Date Type Department Care Team (Latest Contact Info) Description 07/06/2022 Abstract [facility] CONVERSIONS Dental, Provider, DDS Social History [...] Description 10/21/2025 2:30 PM EST Office Visit [facility] OPTOMETRY [address] [place] [address] Lolita Jenkins, OD [address] [place] [address] 11/18/2025 11:30 AM EDT Office Visit [facility] CHC MED & PEDS 505 [place], [place] [phone] Grisel Meraz MD 505 [place], [place] [phone] documented as of this encounter Visit Diagnoses Not on filedocumented in this encounter Care Teams Print And Pattern Designer Relationship Specialty Start Date End Date Grisel Meraz MD 505 [place] [address] PCP - General Family Medicine 03/06/19 documented as of this encounter
--- OUTSIDE RECORDS SUMMARY | 2025-09-01 16:24 | XMS_ITS | Encounter Summary ---
Author Organization [employer] Address [address] [address] Care Team Providers Care Corporate Concierge Name Role Phone Grisel Meraz MD Primary Care Provider [phone] Reason for Visit * Reason Onset Date Comments Record Request 04/05/2023 Encounter Details Date Type Department Care Team ([facility] st Contact Info) Description 04/05/2023 Telephone [facility] CHC MED & PEDS [address] [place] [address] Grisel Meraz MD 505 [place] [address] Record Request Social History Tobacco Use Types [...] - 04/05/2023 11:24 AM EDT TC from [facility] with [facility]. States had placed requests for physician Summary form , along with copies of last Physical , last office visit , and med list . documented in this encounter Plan of Treatment Upcoming Encounters Date Type Department Care Team (Late st Contact Info) Description 10/21/2025 2:30 PM EST Office Visit [facility] OPTOMETRY [address] [place] [address] Tarka, Lolita, OD [address] [place] [address] 11/18/2025 11:30 AM EDT Office Visit [facility] CHC MED & PEDS [address] [place] [address] Grisel Meraz MD 505 [place], [place] [phone] documented as of this encounter Visit Diagnoses Not on filedocumented in this encounter Additional Health Concerns Assessment Noted Time PHQ-9 Depression Total Score: 21 023 11:24 AM EST documented as of this encounter Care Teams Corporate Concierge Relationship Specialty Start Date End Date Grisel Meraz MD [address] [place] [address] PCP - General Family Medicine 03/06/19 documented as of this encounter
--- OUTSIDE RECORDS SUMMARY | 2025-09-01 16:24 | XMS_ITS | Encounter Summary ---
Author Organization [facility] Prior to 02/01/25 Address [address] [place] [address] Care Team Providers Care Operating Engineer Apprentice Name Role Phone Grisel Meraz MD Primary Care Provider [phone] Encounter Details Date Type Department Care Team Description 12/20/2022 Social Work [facility] Oncology Services [address] [place] [address] [facility] Social History Tobacco Use Types [...] on filedocumented in this encounter Care Teams Operating Engineer Apprentice Relationship Specialty Start Date End Date Grisel Meraz MD 505 [facility] [place] [address] PCP - General Pediatrics 09/16/22 documented as of this encounter
--- OUTSIDE RECORDS SUMMARY | 2025-09-01 16:24 | XMS_ITS | Encounter Summary ---
Author Organization [employer] Address [address] [address] Care Team Providers Care Subassembler Name Role Phone Grisel Meraz MD Primary Care Provider [phone] Reason for Visit * Reason Onset Date Comments triage 08/16/2022 Encounter Details Date Type Department Care Team (Late Contact Info) Description 08/16/2022 Telephone [facility] CHC MED & PEDS [address] [place] [address] Grisel Meraz MD 505 [place] [address] triage Social History Tobacco Use Types Packs/Day [...] report Losing weight x Months. Patient speaks (Guinean). Advised triage nurse will call patient back. documented in this encounter Plan of Treatment Upcoming Encounters Date Type Department Care Team (Late Contact Info) Description 10/21/2025 2:30 PM EST Office Visit [facility] OPTOMETRY [address] [place] [address] Alice Lolita, OD [address] [place] [address] 11/18/2025 11:30 AM EDT Office Visit [facility] CHC MED & PEDS [address] [place], [place] [phone] Grisel Meraz MD 505 [place], [place] [phone] documented as of this encounter Visit Diagnoses Not on filedocumented in this encounter Care Teams Subassembler Relationship Specialty Start Date End Date Grisel Meraz MD [address] [place], [place] [phone] PCP - General Family Medicine 03/06/19 documented as of this encounter
--- OUTSIDE RECORDS SUMMARY | 2025-09-01 16:24 | XMS_ITS | Encounter Summary ---
Author Organization [employer] Address [address] [place] [address] 7 [place] [address] Care Team Providers Care Intervention Manager Name Role Phone Grisel Meraz MD Primary Care Provider [phone] Reason for Visit * Reason Comments Med Refill Encounter Details Date Type Department Care Team (Late st Contact Info) Description 09/14/2022 Refill [facility] MEDICINE [address] [place] [address] Sadie Wayne MD 505 [place] [address] Social History Tobacco Use Types Packs/Day Years [...] Description 10/21/2025 2:30 PM EST Office Visit [facility] OPTOMETRY [address] [place] [address] Lolita Jenkins, OD [address] [place] [address] 11/18/2025 11:30 AM EDT Office Visit [facility] CHC MED & PEDS [address] [place], [place] [phone] Grisel Meraz MD 505 [place] [address] documented as of this encounter Visit Diagnoses Not on filedocumented in this encounter Care Teams Intervention Manager Relationship Specialty Start Date End Date Grisel Meraz MD 505 [place] [address] PCP - General Family Medicine 03/06/19 documented as of this encounter
--- OUTSIDE RECORDS SUMMARY | 2025-09-01 16:24 | XMS_ITS | Encounter Summary ---
Author Organization [employer] Address 75 [facility] 7 [place] [address] Care Team Providers Care Animal Stunner Name Role Phone Grisel Meraz MD Primary Care Provider [phone] Reason for Visit * Reason Comments Med Refill Encounter Details Date Type Department Care Team ([facility] Contact Info) Description 09/01/2025 Refill [facility] CHC MED & PEDS [address] [place] [address] Grisel Meraz MD [address] [place] [address] Social History Tobacco Use Types Packs/Day Years [...] Upcoming Encounters Date Type Department Care Team ([facility] st Contact Info) Description 10/21/2025 2:30 PM EST Office Visit [facility] OPTOMETRY [address] [place] [address] Lolita Jenkins, OD [address] [place] [address] 11/18/2025 11:30 AM EDT Office Visit [facility] CHC MED & PEDS [address] [place] [address] Grisel Meraz MD [address] [place] [address] documented as of this encounter Goals Goal [...] Care Plan Weekly blood pressure task No Hiedy Gould MD Patient has chronic kidney disease [...] Plan Patient has chronic kidney disease No Luhco Allen Patient has chronic kidney disease Care [...] documented as of this encounter Care Teams Animal Stunner Relationship Specialty Start Date End Date Grisel Meraz MD [address] [place] [address] PCP - General Family Medicine 03/06/19 documented as of this encounter
--- OUTSIDE RECORDS SUMMARY | 2025-09-01 16:24 | XMS_ITS | Encounter Summary ---
Author Organization [employer] Address 75 [facility] 7 [place] [address] Care Team Providers Care Sonogram Technician Name Role Phone Grisel Meraz MD Primary Care Provider [phone] Encounter Details Date Type Department Care Team ([facility] st Contact Info) Description 09/06/2024 Orders Only [facility] CHC MED & PEDS [address] [place] [address] Grisel Meraz MD 505 [place] [address] Boils of multiple sites (Primary Dx) Social [...] Description 10/21/2025 2:30 PM EST Office Visit [facility] OPTOMETRY [address] [place], [place] [phone] TarkaLolita, OD [address] [place] [address] 11/18/2025 11:30 AM EDT Office Visit [facility] CHC MED & PEDS 505 [place] [address] Grisel Meraz MD 505 [place] [address] documented as of this encounter Visit Diagnoses Diagnosis Boils of multiple sites- Primary documented in this encounter Additional Health Concerns Assessment Noted Time PHQ-9 Depression Total Score: 21 023 11:24 AM EST documented as of this encounter Care Teams Sonogram Technician Relationship Specialty Start Date End Date Grisel Meraz MD [address] [place] [address] PCP - General Family Medicine 03/06/19 documented as of this encounter
--- OUTSIDE RECORDS SUMMARY | 2025-09-01 16:24 | XMS_ITS | Encounter Summary ---
Author Organization [employer] Address 75 [facility] 7 [place] [address] Care Team Providers Care Signal Helper Name Role Phone Grisel Meraz MD Primary Care Provider [phone] Reason for Visit * Reason Onset Date Comments Nurse Triage 05/30/2025 Encounter Details Date Type Department Care Team ([facility] st Contact Info) Description 05/30/2025 Telephone [facility] CHC MED & PEDS 505 [place] [address] Grisel Meraz MD 505 [place] [address] Nurse Triage Social History Tobacco Use Types [...] caller accepted this outcome.. Contact pt at [phone] (mongolian) documented in this encounter Plan of Treatment Upcoming Encounters Date Type Department Care Team ([facility] st Contact Info) Description 10/21/2025 2:30 PM EST Office Visit [facility] OPTOMETRY [address] [place] [address] TarLolita jay, OD [address] [place] [address] 11/18/2025 11:30 AM EDT Office Visit [facility] CHC MED & PEDS 505 [place], [place] [phone] Grisel Meraz MD 505 [place], [place] [phone] documented as of this encounter Visit Diagnoses Diagnosis B-cell lymphoma of intra-abdominal lymph nodes, unspecified B-cell lymphoma type (CMS/HCC) (HCC) documented in this encounter Additional Health Concerns Assessment Noted Time PHQ-9 Depression Total Score: 0 12/05/19 25 11:11 AM EDT documented as of this encounter Care Teams Signal Helper Relationship Specialty Start Date End Date Grisel Meraz MD [address] [place] [address] PCP - General Family Medicine 03/06/19 documented as of this encounter
--- OUTSIDE RECORDS SUMMARY | 2025-09-01 16:24 | XMS_ITS | Clinical Summary ---
Author Organization [facility] Address [address] [place] [address] Phone Care Team Providers Care Balance Staff Inspector Name Role Phone Grisel Meraz MD Primary Care Provider [phone] Allergies Active Allergy Reactions Criticality Noted Date [...] History Medical History Date Comments Diabetes mellitus ([facility] V24, [facility] V28) Colon cancer ([facility] V24, [facility] V28) Family History Medical History Relation Name [...] 11/12/2025 3:30 PM EDT Office Visit [facility] Hematology Oncology [address] [place] [phone] Nirmal Cooper MD [address] [place] [address] Health Maintenance Due Date Last Done Comments [...] 09/25/2024 8:22 PM [facility] Potassium 4.1 3.5 - [...] [facility] Comment:Calculation based on the Chronic [...] 8:22 PM [facility] Total Bilirubin 0.6 0.0 - 1.4 mg/dL LAB CHEMISTRY METHOD 09/25/2024 8:22 PM [facility] Blood Venous blood specimen / Unknown Venipuncture / Unknown 09/25/2024 7:30 PM EST 09/25/2024 7:37 PM EST us Tae Hyong Monika DO LAB BLOOD ORDERABLES Final Resu lt [facility] [address] [place] [address], * Lipid panel (09/06/2023) LDL/HDL Ratio 0 Triglycerides 0 mg/dL Cholesterol 0 mg/dL HDL 0 mg/dL LDL Cholesterol 0 mg/dL Blood Venous blood specimen / Unknown [facility] Provider LAB BLOOD ORDERABLES Prema l Result * Hepatitis C Screening (11/21/2022) Pathologist [facility] Hepatitis C Screening Abstracted [facility] Provider HEALTH MAINTENANCE Final Result * HIV Screening (12/03/2021) Pathologist [facility] HIV Screening Abstracted [facility] Provider HEALTH MAINTENANCE Final Result * Hemoglobin A1c (12/03/2021) Pathologist [facility] Hemoglobin A1C 0.0 % Blood Venous blood specimen / Unknown [facility] Provider LAB BLOOD ORDERABLES Prema l Result from Last 3 Months or Most Recently Relevant to Health Maintenance Insurance [place] [id number] Care Teams Balance Staff Inspector Relationship Specialty Start Date End Date Grisel Meraz MD [address] [place] [phone] PCP - General 09/16/22
--- OUTSIDE RECORDS SUMMARY | 2025-09-01 16:24 | XMS_ITS | Encounter Summary ---
Author Organization [employer] [facility] Prior to 02/01/25 Address [address] [place] [address] Care Team Providers Care Bottling Room Worker Name Role Phone Grisel Meraz MD Primary Care Provider [phone] Encounter Details Date Type Department Care Team Description 11/01/2022 Social Work [facility] Oncology Services [address] [place] [address] [facility] Social History Tobacco Use Types Packs/Day [...] on filedocumented in this encounter Care Teams Bottling Room Worker Relationship Specialty Start Date End Date Grisel Meraz MD 505 [facility] [place] [address] PCP - General Pediatrics 09/16/22 documented as of this encounter
--- OUTSIDE RECORDS SUMMARY | 2025-09-01 16:24 | XMS_ITS | Encounter Summary ---
Author Organization [employer] Address [address] [address] Care Team Providers Care Art Appraiser Name Role Phone Grisel Meraz MD Primary Care Provider Reason for Visit * Reason Onset Date Comments Appointment Request 02/22/2023 Encounter Details Date Type Department Care Team ([facility] Contact Info) Description 02/22/2023 Telephone [facility] CHC MED & PEDS [address] [place] [address] Grisel Meraz MD [address] [place] [address] Appointment Request Social History Tobacco Use Types [...] are being required. Please contact pt at [phone] Filipino Speaker documented in this encounter Plan of Treatment Upcoming Encounters Date Type Department Care Team (Late st Contact Info) Description 10/21/2025 2:30 PM EST Office Visit [facility] OPTOMETRY [address] [place] [address] TarkaLolita, OD [address] [place] [address] 11/18/2025 11:30 AM EDT Office Visit [facility] CHC MED & PEDS [address] [place] [address] Grisel Meraz MD [address] [place], [place] [phone] documented as of this encounter Visit Diagnoses Not on filedocumented in this encounter Additional Health Concerns Assessment Noted Time PHQ-9 Depression Total Score: 21 023 11:24 AM EST documented as of this encounter Care Teams Art Appraiser Relationship Specialty Start Date End Date Grisel Meraz MD [address] [place] [address] PCP - General Family Medicine 03/06/19 documented as of this encounter
--- OUTSIDE RECORDS SUMMARY | 2025-09-01 16:24 | XMS_ITS | Encounter Summary ---
Author Organization [employer] Address 75 [facility] 7t [place] [address] Care Team Providers Care Sole Leather Cutting Machine Operator Name Role Phone Grisel Meraz MD Primary Care Provider [phone] Encounter Details Date Type Department Care Team ([facility] st Contact Info) Description 09/27/2024 Orders Only [facility] [address] [place], [place] [phone] Provider, MD Silverio Social History Tobacco Use [...] [facility] OPTOMETRY [address] [place], [place] [phone] Tarka, Lolita, OD [address] [place] [address] 11/18/2025 11:30 AM EDT Office Visit [facility] CHC MED & PEDS [address] [place], [place] [phone] Grisel Meraz MD [address] [place], [place] [phone] documented as of this encounter Procedures Procedure [...] documented as of this encounter Care Teams Sole Leather Cutting Machine Operator Relationship Specialty Start Date End Date Grisel Meraz MD [address] [place], [place] [phone] PCP - General Family Medicine 03/06/19 documented as of this encounter
--- OUTSIDE RECORDS SUMMARY | 2025-09-01 16:24 | XMS_ITS | Clinical Summary ---
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 Role Phone Grisel Meraz MD Primary Care Provider [phone] Allergies Active Allergy Reactions Criticality Noted Date [...] complication, with long-term current use of insulin ([facility]) Inject 30 Units under the skin at [...] each 023 Active Blood Glucose Monitoring Suppl (Perception Software) w/Device kit CHECK BLOOD SUGAR FOUR TIMES [...] injectionIndicat ions:Type 2 diabetes mellitus with hyperglycemia ([facility]),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 ([facility]/HCC) ([facility]) INJECT 2 TO 16 UNITS SUBCUTANEOUSLY FOUR TIMES DAILY 15 mL 6 023 Active insulin aspart FlexPen (NovoLOG) 100 UNIT/ML pen Use 10 units subcutaneously premeals tid or as per sliding scale 15 mL 11 023 Active OneTouch Verio test stripIndications :Type 2 diabetes mellitus without complications ([facility]) TEST BLOOD SUGAR FOUR TIMES DAILY 100 [...] Encounters Date Type Department Care Team Description 09/01/2025 Refill [facility] [address] [place] [address] Grisel Meraz MD 09/01/2025 Telephone [facility] [address] [place] [address] Grisel Meraz MD Mammo Order 08/26/2025 Results Follow-Up [facility] [address] [place], [place] [phone] Heidy Gould MD Pap Smear 08/23/2025 Refill [facility] [address] [place] [address] Grisel Meraz MD 2025 9:15 AM EST Procedure Visit [facility] [address] [place] [address] Grisel Meraz MD Encounter for immunization (Primary Dx); Encounter for gynecological examination (general) (routine) without abnormal findings; Breast cancer screening by mammogram; B-cell lymphoma of intra-abdominal lymph nodes, unspecified B-cell lymphoma type (CMS/HCC) (HCC); Diabetes mellitus, labile (HCC) 2025 Travel 08/19/2025 Telephone [facility] [address] [place] [address] Grisel Meraz MD 08/14/2025 Telephone [facility] [address] [place] [address] Grisel Meraz MD Appointment Request 07/21/2025 Orders Only GENERIC EXTERNAL DATA DEPARTMENT Provider, Generic External Data 07/15/2025 Telephone [facility] [address] [place] [address] Zoe Patrick RN 07/08/2025 12:45 PM EST Office Visit [facility] [address] [place] [address] Jose Gagnon Dental calculus (Primary Dx) 06/16/2025 1:45 PM EDT Office Visit [facility] [address] [place] [address] Lolita Jenkins, OD 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, unspecified whether group home insulin use (HCC) (Primary Dx); 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, unspecified whether group home insulin use (HCC); Presbyopia 06/16/2025 Travel 06/10/2025 10:30 AM EDT Office Visit [facility] [address] [place] [address] Grisel Meraz MD Diffuse large B-cell lymphoma, unspecified body region (CMS/HCC) (HCC) (Primary Dx); Type 2 diabetes mellitus without complication, with long-term current use of insulin (HCC); Mood disorder (CMS/HCC); Closed fracture of nasal bone with routine healing, subsequent encounter 06/10/2025 Refill [facility] [address] [place] [address] Jeremy Ruiz MD B-cell lymphoma of intra-abdominal lymph nodes, unspecified B-cell lymphoma type (CMS/HCC) (HCC) 06/10/2025 Travel 06/09/2025 Telephone [facility] [address] [place] [address] Grisel Meraz MD Chart Prep 06/03/2025 2:00 PM EDT Clinical Support [facility] [address] [place] [address] Zoe Patrick RN Long-term current use of opiate analgesic (Primary Dx) 06/03/2025 Travel from Last 3 Months Immunizations Immunization [...] Description 10/21/2025 2:30 PM EST Office Visit [facility] [address] [place] [address] Alice Lolita, OD [address] [place] [address] 11/18/2025 11:30 AM EDT Office Visit [facility] [address] [place] [address] Grisel Meraz MD [address] [place], [place] [phone] Health Maintenance Due Date Last Done Comments CT Colonography 1972 FIT DNA/Cologuard 1972 FIT 1972 FOBT 1972 Sigmoidoscopy 1972 Diabetes: Foot Exam 1982 Hepatitis B Vaccines (1 of 3 - 19+ 3-dose series) 1991 Pneumococcal Vaccine: 50+ Years (2 of 2 - PCV) 03/10/2015 03/10/2014 RSV Patients and Patients Aged 60 years or older (1 - Risk 50-74 years 1-dose series) 2022 HPV/Cotest 04/18/2024 04/18/2019 COVID-19 Vaccine ( season) [...] Dental X-Ray: Full Mouth 07/09/2028 07/08/2025, 07/05 Cervical Cancer Screening 2028 Pap Smear 2028 2025 DTaP/Tdap/Td Vaccines (5 - Td or Tdap) [...] Weekly blood pressure task No Alisa Gonsales [place] Weekly blood pressure task Care Plan Weekly blood pressure task No DruAlisa bethea [place] Patient has chronic kidney disease Care Plan Patient has chronic kidney disease No DruAlisa bethea [place] Patient has chronic kidney disease Care Plan Patient has chronic kidney disease No DruAlisa bethea [place] Weekly blood pressure task Care Plan Weekly blood pressure task No DruAlisa bethea [place] Weekly blood pressure task Care Plan Weekly blood pressure task No DruAlisa bethea [place] Patient has chronic kidney disease Care Plan Patient has chronic kidney disease No DruAlisa [place] Patient has chronic kidney disease Care Plan Patient has chronic kidney disease No DruAlisa bethea [place] Weekly blood pressure task Care Plan Weekly [...] Plan Patient has chronic kidney disease No Pauline Allenshua Procedures Procedure Name Priority Date/Time Associated Diagnosis Comments PAP SMEAR Routine 2025 12:00 AM EST Encounter for gynecological examination (general) (routine) without abnormal findings GLUCOSE, WHOLE BLOOD Routine 07/21/2025 2:27 PM [...] left eye and macular edema, unspecified whether manager intermediate insulin use (HCC) 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, unspecified whether group home insulin use (HCC) POCT GLYCATED HEMOGLOBIN, TOTAL Routine 06/10/2025 10:52 AM EDT Type 2 diabetes mellitus without complication, with long-term current use of insulin (HCC) POCT GLUCOSE (CPT-08429) Routine 06/10/2025 10:52 AM EDT Type 2 [...] Recently Relevant to Health Maintenance Results * Pap Smear (2025 12:00 AM EST) Swab Cervical swab / Unknown 2025 08/21/2025 9:03 AM EST [facility] - 08/25/2025 11:11 AM EST ----- ------- Name: Za Mauro Age/Sex: 55/F : 1970 Unit#: [id number] Attend Dr: Grisel Meraz MD Re08/20/25 Status: DEP REF Location: [facility] Disch: ----- ------- SPEC : [id number] RECD: 08/21/25 STATUS: BENEDICT MUELLER NUM: [id number] WERNER: 08/20/250000 SUBM DR: Grisel Meraz MD ENTERED: 08/21/25 SP TYPE: Pap Smr OT DR: ORDERED: Pap Smear Interpretation General Category: Negative for intraepithelial lesion/malignancy. Adequacy: Endocervical component present. Interpretation: Inflammation with associated cellular changes. Clinical Information LMP: Post menopausal Previous PAP test:Unknown date/findings Material Received ThinPrep-Cervical PAP Disclaimer As of June 26, 2024, the technical services to include automated prescreening performed by the ThinPrep Imaging System, PAP screening and HPV testing will be performed at [facility] (CLIA #[id number]), [address] [place] [address]. Testing for HPV was performed using the [employer] SALLIE 6800 system. The presence of HPV in the female genital tract is associated with a number of diseases, including cervical carcinoma. The HPV DNA high risk pool tests for HPV 31, 33, 35, 39, 45, 51, 52, 56, 58, 59, 66 and 68. The testing for HPV 16 and 18 genotypes has also been performed. A positive result indicates detection of nucleic acid sequences from one or more subtypes, whereas a negative result indicates such sequences were not detected. All professional services are performed by [facility] ([address] [place] [address], [place] [address]; ; CLIA #[id number]). The PAP Test is a screening procedure with the inherent possibility of both false negative and false positive results. Results should be interpreted in the context of historic and current clinical findings. Reliability of the PAP Test is enhanced by performing the test on a regular repetitive basis. ----- ------- Signed (signature on file) GIANA Fischer (ASCP) 08/25/25 1111 ----- ------- END OF REPORT Grisel Meraz MD LAB CYTOLOGY ORDERABLES Final Result Performing Organization Address [facility] Co de Phone Number [facility] [address] [place] [phone] * (ABNORMAL) Glucose, Whole Blood (07/21/2025 2:27 PM EST) [facility] Glucose, Whole Blood 144(H) 60 - 115 mg/dL [facility] Comment:METER #: [id number] Testing performed in the Endocrinology Department [address] , [address], [facility]. 07/21/2025 2:27 PM EST 07/21/2025 2:31 PM EST us Generic External Data Provider LAB BLOOD ORDERAB LES Final Result Performing Organization Address [facility] Co de Phone Number [facility] [address] [place] [phone] * Referral to Ophthalmology (06/27/2025) Lolita Jenkins OD OUTPATIENT REFERRAL ORDERABLES Final Result * (ABNORMAL) POCT Hgb A1c (06/10/2025 10:52 AM EDT) Hemoglobin A1C 6.9(A) 4.0 - 5.7 % QC Media Lot # [id number] Lot# Expiration Date Blood 06/10/2025 10:5 2 AM EDT us Grisel Meraz MD POINT OF CARE TEST ENTER/EDIT ORDERABLES Final Result * POCT Glucose (06/10/2025 10:52 AM EDT) Glucose Blood, POC 169 60 - 200 mg/dL QC Media Lot # [id number] Lot# Expiration Date Blood Capillary blood specimen / Unknown 06/10/2025 10:52 AM EDT us Grisel Meraz MD POINT OF CARE TEST ENTER/EDIT ORDERABLES Final Result * POCT ROSELYN-14 Urine Drug Screen (06/03/2025 2:10 PM EDT) THC Negative Negative Cocaine Screen, Urine Negative [...] PM EDT . Internal Pass Control Lot# [id number] Exp: 07-04-26 us Grisel Meraz MD POINT OF CARE TEST ENTER/EDIT ORDERABLES Final Result * Lipid Panel, Standard (11/22/2024 11:46 AM EDT) Triglycerides 137 <150 mg/dL [facility] Comment:Desirable Triglyceri de: less than 150 mg/dLBorderline High Triglyceride 150-199 mg/dLHigh Triglyceride: 200-499 mg/dLVery High Triglyceride: greater than or equal to 5OO mg/dL Cholesterol 159 <200 mg/dL [facility] Comment:Desirable Cholestero l: less than 200 mg/dLBorderline High Cholesterol: 200-239 mg/dLHigh Cholesterol: greater than 239 mg/dL LDL Cholesterol Calculated 78 <100 mg/dL [facility] Comment:Desirable LDL: less than 100 mg/dLNear Optimal/Above Optimal LDL: 110- 129 mg/dLBorderline High LDL: 130-159 mg/dLHigh LDL: 160-189 mg/dLVery High LDL: greater than or equal to 190 mg/dL HDL Cholesterol 54 >40 mg/dL [facility] Comment:Desirable HDL: great er than 40 mg/dL Note: This HDL assay may give artificially low results in patients with liver disease. 11/22/2024 11:4 6 AM EDT 11/22/2024 11:46 AM EDT us Generic External Data Provider LAB BLOOD ORDERAB LES Final Result [facility] [address] [place] [phone] * Albumin, Random Urine W/Creatinine (11/22/2024 11:22 AM EDT) Creatinine, Urine 123.70 mg/dL [facility] Microalbumin Urine 16.0 mg/L [facility] Microalbum Creatinine Ratio Ur 12.9 <30 ug/mg cr [facility] Comment:Albumin/Creatinine R atio Reference Ranges: Normal: < 30 ug/mg creatinine Microalbuminuria: 30 - 300 ug/mg creatinineClinical Albuminuria: > 300 ug/mg creatinine 11/22/2024 11:2 2 AM EDT 11/22/2024 12:34 PM EDT Generic External Data Provider LAB URINE ORDERAB LES Final Result Performing Organization Address [facility] Co de Phone Number [facility] [address] [place] [phone] [phone] * BI Mammogram Screening Bilateral (11/16/2023) Anatomical Region Laterality Modality Breast Bilateral Mammography Grisel Meraz MD IMG BI PROCEDURES Final Resul t * Hm Colonoscopy (09/12/2022 11:49 AM EST) Historical Provider HEALTH MAINTENANCE Final Result * HEPATITIS C AB W/REFL TO HCV RNA, QN, PCR (12/03/2021 12:00 AM EDT) HEPATITIS C ANTIBODY NON-REACT MICHAEL NON-REACT MICHAEL [facility] INDEX 0.01 <1.00 [facility] Comment: HCV antibody was non-reactive. There is no laboratory evidence of HCV infection. In most cases, no further action is required. However, if recent HCV exposure is suspected, a test for HCV RNA (test code 98130) is suggested. For additional information please refer to http://education.Solve Media/faq/RMF49r7 (This link is being provided for informational/ educational purposes only.) 12/03/2021 Grisel Meraz MD HISTORICAL/NON ORDERABLE LABS Final Result Performing Organization Address City/[facility]/ZIP Co de Phone Number [facility] [address] * HIV 1/2 ANTIGEN/ANTIBODY,FOURTH GENERATION W/RFL (12/03/2021 12:00 AM EDT) HIV-1/2 ANTIGEN AND ANTIBODIES, 4TH GENERATION W/ REFLEX NON-REACT MICHAEL NON-REACT MICHAEL [facility] Comment: HIV-1 antigen and HIV-1/HIV-2 [...] purpose. For additional information please refer to http://[employer]ent[employer].Solve Media/faq/YCN379 (This link is being provided for informational/ educational purposes only.) The performance of this assay has not been clinically validated in patients less than 2 years old. 12/03/2021 us Grisel Meraz MD LAB BLOOD ORDERABLES Final Re sult [facility] [address] * HPV E6/E7 RFLX SONIA 16 18/45 (04/18/2019 11:40 AM EDT) HPV 16 RNA Test not performed [facility] HPV 18/45 RNA Test not performed [facility] HPV mRNA E6/E7 Not Detected NOT DETECTED [facility] Comment: This test was performed using the APTIMA(R) HPV Assay ([employer] This assay detects E6/E7 viral messenger RNA (mRNA) from 14 high-risk HPV types (16,18,31,33,35,39,45,51, 52,56,58,59,66,68). For additional information please refer to: http://Terressentia.Solve Media/faq/DRV223j1 (This link is being provided for informational/ educational purposes only.) The analytical performance characteristics of this assay have been determined by [employer] [place], [place]. The modifications have not been cleared or approved by the FDA. This assay has been validated pursuant to the CLIA regulations and is used for clinical purposes. Please note: Effective 05/16/2016, HPV testing will be performed using [employer]'s APTIMA test which targets mRNA. Detecting mRNA instead of DNA, as in older methods, offers significant improvements in specificity. ADDITIONAL TESTING Not indicated () [facility] Comment: Test Performed by [employer], [facility], [address] [place] [address] Jorje Hendrickson M.D., Ph.D., Director of Laboratories , [facility] [id number] 04/18/2019 11:4 0 AM EDT us Grisel Meraz MD HISTORICAL/NON ORDERABLE LABS Final Result [facility] [address] from Last 3 Months or Most [...] 09/01/2025 Patient has chronic kidney disease 09/01/2025 Insurance [facility] MEDICARE ADVANTAGE [facility] COMMONHEALTH DENTAL-[facility] MEDICAID STAND ADULT Advance Directives Documents on File Type Date Recorded Patient Crna Expl anation Advance Directives and Jocy wood Will 11/09/2023 3:59 PM HCP Care Teams 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
== END 2025-09-01 14:39 | disposition home or self-care (01) ==
LOC: HO.ENCR 14:04
PROVIDERS: PCP Pediatrics; Visit Provider Registered Nurse Diabetes Educator
DX: E11.65 Type 2 diabetes mellitus with hyperglycemia (principal); Z79.4 Long term (current) use of insulin

== ENCOUNTER → 2025-09-01 14:04 | Outpatient (BNVA) | payer MEDICARE, MEDICAID, SELFPAY | PROVIDERS: PCP Pediatrics; Visit Provider Registered Nurse Diabetes Educator | DX: E11.65 Type 2 diabetes mellitus with hyperglycemia (principal); E11.42 Type 2 diabetes mellitus with diabetic polyneuropathy; Z79.4 Long term (current) use of insulin; Z46.81 Encounter for fitting and adjustment of insulin pump; Z96.41 Presence of insulin pump (external) (internal) | CPT/HCPCS: 99211 ==